=== PATIENT | female | born 1965 | race Caucasian/White ===

== ENCOUNTER → 2016-07-23 | Outpatient (CLI) | payer BC ==
[~2016-07-23] MED LIST: ASPI81TA28 PO; BUTO10SO; CHOL100010 PO; ESTR1CRE PV; FLNIN NAE; IMT100 PO; LYSI500C2 PO; ONDA4TAB65 PO; PROM25TA16 PO; SENN-65 PO; TRAM-10 PO; VITACAP26 PO
[2016-07-23 19:01] LABS: HEMATOCRIT 40.5 % (37-47); MEAN CELL VOLUME 89.4 fL (80-100); MEAN CORPUSCULAR HGB CONC 33.6 g/dl (32-36); MEAN PLATELET VOLUME 10.3 fL (7.4-10.4); PLATELET COUNT 183 K/uL (130-400); RED BLOOD COUNT 4.53 M/uL (4.2-5.4); WHITE BLOOD COUNT 3.26 K/uL (4.8-10.8)
[2016-07-23 19:24] LABS: BLOOD UREA NITROGEN 13 mg/dl (7-18); BUN/CREATININE RATIO 13.5 (10-20); CALCIUM 9.2 mg/dl (8.5-10.1); CARBON DIOXIDE 30 mmol/L (21-32); CHLORIDE 105 mmol/L (98-107); CREATININE 0.97 mg/dl (0.60-1.20); GLUCOSE 117 mg/dl (70-99); POTASSIUM 3.7 mmol/L (3.5-5.1); SODIUM 140 mmol/L (136-145)
== END | disposition home or self-care (01) ==
LOC: C.LAB 17:53
PROVIDERS: ATTEND Nurse Practitioner
DX: R35.0 Frequency of micturition (principal); E03.4 Atrophy of thyroid (acquired); R41.3 Other amnesia

== ENCOUNTER → 2017-01-12 | Outpatient (CLI) | payer BC ==
[2017-01-12 16:32] LABS: HEMATOCRIT 40.3 % (37-47); MEAN CELL VOLUME 89.4 fL (80-100); MEAN CORPUSCULAR HEMOGLOBIN 30.4 pg (25-34); MEAN PLATELET VOLUME 9.6 fL (7.4-10.4); PLATELET COUNT 114 K/uL (130-400); RED BLOOD COUNT 4.51 M/uL (4.2-5.4); WHITE BLOOD COUNT 2.12 K/uL (4.8-10.8)
== END | disposition home or self-care (01) ==
LOC: C.LAB 15:56
PROVIDERS: ATTEND Internal Medicine
DX: D69.59 Other secondary thrombocytopenia (principal); M25.50 Pain in unspecified joint

== ENCOUNTER → 2017-01-27 | Outpatient (CLI) | payer BC ==
[2017-01-27 17:25] LABS: BASO % 1.3 %; BASO ABS # 0.05 K/uL (0-0.2); COMPLETE YES; EOS % 3.4 %; HEMATOCRIT 39.8 % (37-47); LYMPH % 28.1 %; LYMPH ABS # 1.08 K/uL (1.2-3.4); MEAN CELL VOLUME 90.2 fL (80-100); MEAN CORPUSCULAR HEMOGLOBIN 30.2 pg (25-34); MEAN CORPUSCULAR HGB CONC 33.4 g/dl (32-36); MEAN PLATELET VOLUME 9.6 fL (7.4-10.4); MONO % 12.5 %; NEUT % 54.7 %; PLATELET COUNT 184 K/uL (130-400); RED BLOOD COUNT 4.41 M/uL (4.2-5.4); WHITE BLOOD COUNT 3.85 K/uL (4.8-10.8)
== END | disposition home or self-care (01) ==
LOC: C.LAB 17:03
PROVIDERS: ATTEND Nurse Practitioner
DX: M25.50 Pain in unspecified joint (principal); D72.819 Decreased white blood cell count, unspecified

== ENCOUNTER → 2017-07-07 | Outpatient (CLI) | payer BC ==
--- NOTE | 2017-07-09 07:48 | MAMMOGRAPHY REPORT ---
BILATERAL DIGITAL SCREENING MAMMOGRAM TOMOSYNTHESIS WITH CAD: 07/07/2017 CLINICAL HISTORY: Routine screening. Patient has no complaints. TECHNIQUE: Breast tomosynthesis in addition to standard 2D mammography was performed. Current study was also evaluated with a Computer Aided Detection (CAD) system. COMPARISON: Comparison is made to exams dated: 07/01/2016 mammogram, 04/11/2013 mammogram, 08/18/2010 ul trasound, 08/18/2010 mammogram, 08/02/2009 mammogram, and 08/02/2009 ultrasound - [facility] nter. BREAST COMPOSITION: The tissue of both breasts is heterogeneously dense, which may obscure small mas ses. FINDINGS: The parenchymal pattern is unchanged. No developing mass, architectural distortion or clus ter of suspicious microcalcifications is seen in either breast. IMPRESSION: ACR BI-RADS CATEGORY 2: BENIGN There is no mammographic evidence of malignancy. A 1 year screening mammogram is recommended. The pa tient will receive written notification of the results. Approximately 10% of breast cancers are not detected with mammography. A negative mammographic report should not delay biopsy if a clinically suggestive mass is present. Lizeth Correa M.D. ay/:07/07/2017 16:40:26 Rehab Liaison: Yelena BUTLER(Shamar)(Mau), [facility] letter sent: Normal 1/2 BI-RADS Code: ACR BI-RADS Category 2: Benign
== END | disposition home or self-care (01) ==
LOC: C.MAMM 16:03
PROVIDERS: ATTEND Nurse Practitioner
DX: Z12.31 Encounter for screening mammogram for malignant neoplasm of breast (principal)

== ENCOUNTER 2020-09-26 11:33 | Inpatient (IN) ==
[2020-09-26] MEDS ORDERED: SODIUM CHLORIDE 0.9% 1000ML 1,000 ML IV STA (14:45)
[2020-09-26] MEDS ORDERED: ONDANSETRON INJ 2 MG/ML 2 ML VIAL IV STA (14:45)
--- NOTE | 2020-09-26 15:08 | Emergency Department Note ---
Impression & Plan Calculus of distal right ureter, Hydronephrosis ED Provider Note NAME: ERIKA LOPEZ AGE: 54 SEX: F : 1965 ARRIVES VIA: Walk-In INFORMANT: Patient, ED PROVIDER(S): Shaq Hernandez DO CHIEF COMPLAINT: Flank pain HPI: The patient is a 54-year-old female who presented to the emergency department for flank pain. The patient was diagnosed with a large distal ureteral calculus. The patient states that she has had ongoing symptoms. The patient has noticed nausea as well as low-grade fever. She is been trying to take her pain medication but has only had minimal relief. She did have follow- up imaging yesterday including an ultrasound which shows persistence of hydronephrosis as well as the distal right ureteral calculus. Because of ongoing worsening symptoms she called her urologist today and was referred to the emergency department for further evaluation. The patient denies having any rectal bleeding. She denies having any chest pain or difficulty breathing. She last ate this morning. She states pain is moderate to severe and worsens with movement. She also has significant right CVA pain. The patient has had kidney stones in the past. She is also required intervention to remove kidney stones in the past. ROS: See above HPI for pertinent positives & negatives. A total of 10 systems reviewed and were otherwise negative. PAST MEDICAL HISTORY: See Below PAST SURGICAL HISTORY: See Below FAMILY HISTORY: See Below SOCIAL HISTORY: See Below HOME MEDICATIONS: See Below ALLERGIES: See Below VITALS: See Below PHYSICAL EXAMINATION: The patient is awake and alert. The patient is very anxious appearing and appears to be uncomfortable. EYES: The conjunctivae are clear. The pupils are round and reactive. EARS, NOSE, MOUTH AND THROAT: The nose is without any evidence of any deformity. NECK: The neck is nontender and supple. RESPIRATORY: Normal respiratory effort is noted there is no evidence of wheezing rhonchi or rales CARDIOVASCULAR: Regular rate and rhythm noted there no murmurs rubs or gallops normal S1 normal S2. GASTROINTESTINAL: The abdomen is soft and nondistended. There is no tenderness guarding or rigidity. BACK: No midline tenderness was appreciated. There was significant right CVA tenderness to percussion. MUSCULOSKELETAL/EXTREMITIES: There is no evidence of gross deformity full range of motion is noted in the hips and shoulders. SKIN: There is no obvious evidence of any rash. There are no petechiae, pallor or cyanosis noted. NEUROLOGIC: Patient is awake alert and oriented x3. MEDICAL DECISION MAKING: The patient is a 54-year-old female who presented to the emergency department for an evaluation of right flank pain. The patient has a known right ureteral calculus. She called urology today and was referred to the emergency department for further evaluation. She did have radiographic studies done yesterday which showed hydronephrosis as well as a distal right ureteral calculus. She has been taking her outpatient medication without relief. The patient started noticing fever. She denies having any vomiting. She does have significant nausea as well as right-sided flank pain. I discussed the patient's laboratory and radiographic studies with her. I discussed her case with the on-call urology group covering for the patient's primary urologist as well [facility] They have agreed to evaluate the patient in the emergency department for further management and disposition. She was found to have signs of urinary tract infection on urinalysis. She was given IV fluids IV pain medication and IV antiemetics. She was also started on IV antibiotic. She was reevaluated multiple times. She was feeling much better on subsequent reevaluation. Triage Nursing notes reviewed. Prior medical records reviewed Vital Signs: reviewed and remarkable for no significant abnormalities Differential diagnosis: Renal colic, UTI, appendicitis, diverticulitis, mesenteric ischemia, aortic pathology, infections, inflammatory bowel disease, PUD, biliary pathology, as we ll as other pathologies. ER treatment provided: See below Diagnostics interpreted by me: ECG: none Cardiac Monitoring: An order was placed for continuous cardiac monitoring. The monitor shows a rate of 68 bpm with sinus rhythm. Laboratory studies: As stated above and show below. Imaging studies: See below Consultation(s): 1505: I discussed this case with Luli who was wafer fabrication technician for urology. 1530: I discussed this case with Luli Rodriguez who [facility] They will evaluate the patient in the emergency department. Past Med/Surg History Medical History History of kidney stones Lyme disease Migraine headache Osteoporosis Patent foramen ovale (07/27/12) Surgical History H/O bilateral oophorectomy History of hysterectomy Family History Mother Cervical cancer Social History Smoking Status: Never smoker Hx Alcohol Use: Yes Alcohol Intake Frequency: 2-4 x/Month Preferred Language: Korean Feels Safe at Home: Yes Allergies Allergies Allergy/AdvReac Type Severity Reaction Status Date / Time azithromycin [From Zithromax] Allergy Severe Hives Verified 09/26/20 15:49 dihydroergotamine Allergy Severe "THROAT Verified 09/26/20 15:49 SHUTS DOWN" ketorolac Allergy Intermediate HIVES Verified 09/26/20 15:49 Penicillins Allergy Intermediate Hives Verified 09/26/20 15:49 Home Meds Home Medications Medication Instructions Recorded Confirmed ascorbic acid (vitamin C) 500 mg 500 mg PO BID 11/11/17 09/26/20 tablet (Vitamin C) conjugated estrogens 0.625 mg/gram 1 applic VAGINAL 2XWK 11/11/17 09/26/20 vaginal cream (Premarin) fluticasone propionate 50 1 spray INTRANASAL DAILY PRN 11/11/17 09/26/20 mcg/actuation nasal spray,suspension (Flonase Allergy Relief) folic acid 400 mcg tablet 400 mcg PO QAM 11/11/17 09/26/20 lysine 500 mg tablet (L-Lysine) 500 mg PO DAILY PRN 11/11/17 09/26/20 selenium 200 mcg tablet (SelenoMax) 200 mcg PO QAM 11/11/17 09/26/20 sennosides 8.6 mg-docusate sodium 1 tab PO BID 11/11/17 09/26/20 50 mg tablet (Senna-S) sumatriptan succinate 100 mg 100 mg PO UD PRN 11/11/17 09/26/20 tablet (Imitrex) cholecalciferol (vitamin D3) 125 5,000 units PO QAM 07/03/18 09/26/20 mcg (5,000 unit) tablet (Vitamin D3) meperidine (PF) 100 mg/mL 1 ml IM DIRECTED PRN 07/03/18 09/26/20 injection solution multivitamin (Multiple Vitamins) 1 tab PO QAM 07/03/18 09/26/20 vitamin B complex (Vitamins B 1 tab PO QAM 09/07/20 09/26/20 Complex) ibuprofen 800 mg tablet 800 mg PO DIRECTED PRN 09/26/20 09/26/20 Previous Rx's Medication Instructions Recorded hydrocodone 5 mg-acetaminophen 325 1 - 2 tab PO Q6H PRN #20 tab 09/07/20 mg tablet ondansetron 4 mg disintegrating 4 mg PO Q6H PRN #20 tab 09/07/20 tablet tamsulosin 0.4 mg capsule (Flomax) 0.4 mg PO DAILY #14 cap 09/07/20 Results & Data (ED) Vital Signs Vital Signs - 24 hr 09/26/20 11:43 09/26/20 15:47 09/26/20 17:03 Temperature 36.4 C L Temperature Source Temporal Artery Scan Pulse Rate 90 Pulse Rate [Finger] 68 Pulse Rhythm [Finger] Regular Respiratory Rate 18 18 Respiratory Effort / Characteristics Non-Labored Spontaneous Non-Labored Respiratory Depth Normal Normal Respiratory Pattern Regular Blood Pressure 126/80 Blood Pressure [Right Arm] 119/81 Blood Pressure Mean 95 Blood Pressure Mean [Right Arm] 93 Blood Pressure Position Sitting Blood Pressure Position [Right Arm] Sitting Pulse Oximetry 96 99 Oxygen Delivery Method Room Air Room Air Room Air Sepsis Recent Fever Within 48 Hours No Sepsis New/Unexplained Change in Mental Status N/A Sepsis Action Taken by Nursing No Action Required Home Medications Current Medication List: was personally reviewed by me Laboratory Data Attestation: I reviewed the patient's lab results. Result diagrams: 09/26/20 15:00 09/26/20 15:00 Lab Results 09/26/20 09/26/20 09/26/20 Range/Units 15:00 15:00 15:20 WBC 3.45 L (4.8-10.8) K/uL RBC 4.56 (4.2-5.4) M/uL Hgb 13.9 (12.0-16.0) g/dL Hct 40.9 (37-47) % MCV 89.7 (80-100) fL MCH 30.5 (25-34) pg MCHC 34.0 (32-36) g/dL RDW Std Deviation 42.9 (36.4-46.3) fL RDW Coeff of Uma 13.1 (11.5-14.5) % Plt Count 175 (130-400) K/uL MPV 9.6 (7.4-10.4) fL Immature Gran % (Auto) 0.0 % Neut % (Auto) 52.8 % Lymph % (Auto) 31.6 % [place] % (Auto) 10.4 % Eos % (Auto) 4.6 % Baso % (Auto) 0.6 % Neut # (Auto) 1.82 (1.4-6.5) K/uL Lymph # (Auto) 1.09 L (1.2-3.4) K/uL [place] # (Auto) 0.36 (0.11-0.59) K/uL Eos # (Auto) 0.16 (0-0.5) K/uL Baso # (Auto) 0.02 (0-0.2) K/uL Immature Gran # (Auto) 0.00 (0.00-0.02) K/uL Sodium 138 (136-145) mmol/L Potassium 4.1 (3.5-5.1) mmol/L Chloride 108 H (98-107) mmol/L Carbon Dioxide 29 (21-32) mmol/L Anion Gap 1.0 L (3-11) BUN 17 (7-18) mg/dl Creatinine 0.81 (0.6-1.2) mg/dl Est Cr Clr Drug Dosing 67.8 ml/min Est GFR ( Amer) 94.8 ml/min Est GFR (Non-Af Amer) 81.8 ml/min BUN/Creatinine Ratio 21.4 H (10-20) Glucose 84 (70-99) mg/dl Calcium 9.0 (8.5-10.1) mg/dl Total Bilirubin 0.3 (0.2-1) mg/dl AST 20 (15-37) U/L ALT 26 (12-78) U/L Alkaline Phosphatase 62 (45-117) U/L Total Protein 7.9 (6.4-8.2) gm/dl Albumin 4.4 (3.4-5.0) gm/dl Globulin 3.5 (2.5-4.0) gm/dl Albumin/Globulin Ratio 1.3 (0.9-2) Lipase 148 (73-393) U/L Urine Color Yellow Urine Appearance Clear (Clear) Urine pH 6.5 (4.5-7.5) Ur Specific [place] 1.014 (1.000-1.030) Urine Protein 1+ H (Negative) Urine Glucose (UA) Negative (Negative) Urine Ketones Trace H (Negative) Urine Blood Negative (Negative) Urine Nitrite Negative (Negative) Urine Bilirubin Negative (Negative) Urine Urobilinogen Negative (Negative) Ur Leukocyte Esterase 2+ H (Negative) Urine WBC (Auto) >30 H (0-5) /hpf Urine RBC (Auto) 5-10 H (0-4) /hpf U Hyaline Cast (Auto) 1-5 (0-5) /lpf U Epithel Cells (Auto) 20-30 H (0-5) /lpf Urine Bacteria (Auto) Negative (Negative) COVID-19 Eval Order SARS-CoV-2 (PCR) (Negative) 09/26/20 09/26/20 Range/Units 15:20 15:20 WBC (4.8-10.8) K/uL RBC (4.2-5.4) M/uL Hgb (12.0-16.0) g/dL Hct (37-47) % MCV (80-100) fL MCH (25-34) pg MCHC (32-36) g/dL RDW Std Deviation (36.4-46.3) fL RDW Coeff of Uma (11.5-14.5) % Plt Count (130-400) K/uL MPV (7.4-10.4) fL Immature Gran % (Auto) % Neut % (Auto) % Lymph % (Auto) % [place] % (Auto) % Eos % (Auto) % Baso % (Auto) % Neut # (Auto) (1.4-6.5) K/uL Lymph # (Auto) (1.2-3.4) K/uL [place] # (Auto) (0.11-0.59) K/uL Eos # (Auto) (0-0.5) K/uL Baso # (Auto) (0-0.2) K/uL Immature Gran # (Auto) (0.00-0.02) K/uL Sodium (136-145) mmol/L Potassium (3.5-5.1) mmol/L Chloride (98-107) mmol/L Carbon Dioxide (21-32) mmol/L Anion Gap (3-11) BUN (7-18) mg/dl Creatinine (0.6-1.2) mg/dl Est Cr Clr Drug Dosing ml/min Est GFR ( Amer) ml/min Est GFR (Non-Af Amer) ml/min BUN/Creatinine Ratio (10-20) Glucose (70-99) mg/dl Calcium (8.5-10.1) mg/dl Total Bilirubin (0.2-1) mg/dl AST (15-37) U/L ALT (12-78) U/L Alkaline Phosphatase (45-117) U/L Total Protein (6.4-8.2) gm/dl Albumin (3.4-5.0) gm/dl Globulin (2.5-4.0) gm/dl Albumin/Globulin Ratio (0.9-2) Lipase (73-393) U/L Urine Color Urine Appearance (Clear) Urine pH (4.5-7.5) Ur Specific [place] (1.000-1.030) Urine Protein (Negative) Urine Glucose (UA) (Negative) Urine Ketones (Negative) Urine Blood (Negative) Urine Nitrite (Negative) Urine Bilirubin (Negative) Urine Urobilinogen (Negative) Ur Leukocyte Esterase (Negative) Urine WBC (Auto) (0-5) /hpf Urine RBC (Auto) (0-4) /hpf U Hyaline Cast (Auto) (0-5) /lpf U Epithel Cells (Auto) (0-5) /lpf Urine Bacteria (Auto) (Negative) COVID-19 Eval Order Covid19 at [facility] SARS-CoV-2 (PCR) NEGATIVE (Negative) Administered Medications Morphine Sulfate (Morphine Sulfate 4 Mg/Ml 1 Ml Carp\\Vial) 4 mg IV Q15M PRN PRN Reason: Pain Stop: 10/10/20 14:44 Last Admin: 09/26/20 15:58 Dose: 4 mg Documented by: [id number] Admin: 09/26/20 15:19 Dose: 4 mg Documented by: [id number] Discontinued Medications Sodium Chloride (Nss 1000ml) 1,000 mls @ 999 mls/hr IV .Q1H1M STA Stop: 09/26/20 15:45 Last Admin: 09/26/20 15:19 Dose: 999 mls/hr Documented by: [id number] Ceftriaxone Sodium (Rocephin) 1,000 mg in 50 mls @ 100 mls/hr IV NOW STA Stop: 09/26/20 16:43 Last Admin: 09/26/20 17:02 Dose: 100 mls/hr Documented by: [id number] Ondansetron HCl (Ondansetron Inj 2 Mg/Ml 2 Ml Vial) 4 mg IV NOW STA Stop: 09/26/20 14:46 Last Admin: 09/26/20 15:19 Dose: 4 mg Documented by: [id number] Imaging Data Radiologist's Impression: KUB X-Ray 09/26/20 14:45 KUB CLINICAL HISTORY: right sided pain COMPARISON STUDY: CT of the abdomen and pelvis September 07, 2020. KUB September 25, 2020. FINDINGS: Several small left renal calculi are noted. Note is made of multiple calcifications within the right inferior pelvis which measure up to 5 mm. These suggest distal right ureteral calculi. Several small left renal calculi are present. Additional pelvic calcifications reflect phleboliths. IMPRESSION: Multiple suspected distal right ureteral calculi that measure up to approximately 5 mm. ACT 112: Negative or not required by law. Electronically signed by: Hoang Betancourt M.D. 09/26/2020 3:54 PM Renal Ultrasound 09/26/20 15:22 RENAL ULTRASOUND CLINICAL HISTORY: Right flank pain. COMPARISON STUDY: CT of the abdomen and pelvis September 07, 2020. Renal ultrasound September 25, 2020. KUB performed earlier today. TECHNIQUE: Sonography of the kidneys and the urinary bladder was performed. FINDINGS: Right kidney measures 10.4 cm in maximal dimension and the left measures 9.4 cm. Moderate right hydroureteronephrosis is similar to ultrasound of September 25, 2020. There are multiple left renal calculi. There are multiple calculi within the distal right ureter that measure up to approximately 6 mm. There is no left hydronephrosis. Left ureteral jet was visualized. The right ureteral jet was not visualized. IMPRESSION: 1. No significant change in moderate right hydroureteronephrosis with multiple calculi within the distal right ureter/ureterovesical junction. 2. Left-sided nephrolithiasis. ACT 112: Negative or not required by law. Electronically signed by: Hoang Betancourt M.D. 09/26/2020 4:56 PM Discharge Plan Visit Data Chief Complaint: Kidney Stone Stated Complaint: kidney stone ED Provider: Shaq Hernandez Discharge Problem: Calculus of distal right ureter, Hydronephrosis Patient Disposition: Being Evaluated by Hospitalist Condition: Good Discharge Instructions Interventions: ED Discharge Assessment Last Done: 09/26/20 17:25
[2020-09-26 15:09] LABS: Basophils # (auto) 0.02 K/uL (0-0.2); Basophils % (auto) 0.6 %; Eosinophils # (auto) 0.16 K/uL (0-0.5); Eosinophils % (auto) 4.6 %; Hematocrit (blood only) 40.9 % (37-47); Hemoglobin 13.9 g/dL (12.0-16.0); Lymphocytes # (auto) 1.09 K/uL (1.2-3.4); Lymphocytes % (auto) 31.6 %; Mean Corpuscular Hemoglobin 30.5 pg (25-34); Mean Corpuscular Volume 89.7 fL (80-100); Mean Platelet Volume 9.6 fL (7.4-10.4); Monocytes # (auto) 0.36 K/uL (0.11-0.59); Monocytes % (auto) 10.4 %; Neutrophils # (auto) 1.82 K/uL (1.4-6.5); Neutrophils % (auto) 52.8 %; Platelet Count 175 K/uL (130-400); RDW Coefficient of Variation 13.1 % (11.5-14.5); RDW Standard Deviation 42.9 fL (36.4-46.3); Red Blood Count 4.56 M/uL (4.2-5.4); White Blood Count 3.45 K/uL (4.8-10.8)
[2020-09-26] MEDS: MoRPHine SULFATE 4 MG/ML 1 ML CARP\\VIAL IV PRN ×2 (15:19→15:58)
[2020-09-26 15:31] LABS: Albumin Level 4.4 gm/dl (3.4-5.0); BUN Creatinine Ratio 21.4 (10-20); Creatinine Clr Calc Pharmacy 67.8 ml/min; Est GFR (African American) 94.8 ml/min; Est GFR (Non-African American) 81.8 ml/min; Potassium 4.1 mmol/L (3.5-5.1)
[2020-09-26 15:34] LABS: Albumin Globulin Ratio 1.3 (0.9-2); Bilirubin,Total 0.3 mg/dl (0.2-1); Globulin 3.5 gm/dl (2.5-4.0); Total Protein 7.9 gm/dl (6.4-8.2)
[2020-09-26 15:36] LABS: Appearance Urine Clear (Clear); Bacteria Urine Automated Negative (Negative); Bilirubin Urine Negative (Negative); Blood Urine Negative (Negative); Color Urine Yellow; Epithelial Cell Urine Auto 20-30 /lpf (0-5); Glucose Urine UA Negative (Negative); Ketones Urine Trace (Negative); Leukocyte Esterase Urine 2+ (Negative); Nitrite Urine Negative (Negative); Protein Urine 1+ (Negative); Specific Gravity Urine 1.014 (1.000-1.030); Urobilinogen Urine Negative (Negative); WBC Urine Automated >30 /hpf (0-5); pH Urine 6.5 (4.5-7.5)
--- NOTE | 2020-09-26 15:43 | Urology Consultation ---
Date of Consultation September 26, 2020 Assessment & Plan (1) Right ureteral stone: (2) Hydronephrosis, right: 54yo F admitted with intractable right flank pain secondary to a few 7 mm obstructive distal ureteral stones with associated hydronephrosis. - Plan of care reviewed with Dr. Barrientos, on-call urologist. - She is afebrile, VSS, non-toxic appearing. - Labs reviewed, Wbc 3.45 and Cr 0.81. - UC&S pending. - Keep NPO. - Strain all urine. - Continue supportive care and pain management. - Given her intractable right flank pain in the setting of a few 7mm obstructing distal right ureteral calculi, will proceed to OR for cystoscopy, right retrograde pyelogram and right stent placement, possible ureteroscopy, laser litho, stone basketing, possible ureteral dilation depending on findings. - Risks and benefits to be discussed with patient by Dr. Barrientos. OR notified. Covid test negative. IV Ceftriaxone given in ED. - Expected clinical course reviewed with patient, she is agreeable to plan, all questions were answered. - Will continue to follow History of Present Illness Reason for Consultation: Ureteral stone, [place] History of Present Illness 54 year-old female patient, with past medical history significant for osteoporosis, known kidney stones, and migraines, who presented to the emergency department for right flank pain. The patient was sent to the ER after phone visit with urology service for subjective fevers with known distal ureteral calculus. She was admitted to hospital for further evaluation and treatment. Urology consulted for renal colic and hydronephrosis. Patient known to [facility] urology service, patient of Dr. Batista. Was also in the ER earlier this month for right abdominal pain. Diagnosed with few 7 mm obstructive calculi within distal aspect of the right ureter. Chart review: Afebrile Wbc 3.45 Hgb 13.9 Creatinine 0.78 Urinalysis with +2 leukocytes, >30 wbc, 5-10 rbc, negative bacteria, negative nitrates. Urine culture pending Urine culture 09/07 more than three types organisms, all high counts probable mixed skin heath. Imaging: CT abd/pelvis 09/07/20 - IMPRESSION: 1. Mild right hydronephrosis and hydroureter with surrounding inflammatory changes and few 7 mm obstructive calculi within distal aspect of the right ureter. 2. Small calculi are seen within bilateral renal pelvises, nonobstructive on the left. 3. Nondilated loops of bowel. Mild inflammatory changes are seen surrounding the ascending colon which might represent developing colitis versus normal variant. 4. Normal appendix. 5. Multiple small hypoattenuating lesions within liver, too small to characterize and statistically most likely represent cysts or hemangiomas. These lesions were not seen on prior study likely because it was performed without IV contrast. KUB 09/25/20 - IMPRESSION: 1. Constipation pattern. 2. No definite calcifications within the abdomen to suggest nephrolithiasis is seen as detailed above. Pt examined at bedside in the ER. Awake, resting in bed on arrival. She reports continued flank pain and subjective fevers at home. Denies issues with urination. Denies hematuria and dysuria. No nausea or vomiting. Pt reports she last had coffee around 10am. Allergies Allergy/AdvReac Type Severity Reaction Status Date / Time azithromycin [From Zithromax] Allergy Severe Hives Verified 09/26/20 15:49 dihydroergotamine Allergy Severe "THROAT Verified 09/26/20 15:49 SHUTS DOWN" ketorolac Allergy Intermediate HIVES Verified 09/26/20 15:49 Penicillins Allergy Intermediate Hives Verified 09/26/20 15:49 Home Medications Medication Instructions Recorded Confirmed Type ascorbic acid (vitamin C) 500 mg 500 mg PO BID 11/11/17 09/26/20 History tablet (Vitamin C) conjugated estrogens 0.625 mg/gram 1 applic VAGINAL 2XWK 11/11/17 09/26/20 History vaginal cream (Premarin) fluticasone propionate 50 1 spray INTRANASAL DAILY PRN 11/11/17 09/26/20 History mcg/actuation nasal spray,suspension (Flonase Allergy Relief) folic acid 400 mcg tablet 400 mcg PO QAM 11/11/17 09/26/20 History lysine 500 mg tablet (L-Lysine) 500 mg PO DAILY PRN 11/11/17 09/26/20 History selenium 200 mcg tablet (SelenoMax) 200 mcg PO QAM 11/11/17 09/26/20 History sennosides 8.6 mg-docusate sodium 1 tab PO BID 11/11/17 09/26/20 History 50 mg tablet (Senna-S) sumatriptan succinate 100 mg 100 mg PO UD PRN 11/11/17 09/26/20 History tablet (Imitrex) cholecalciferol (vitamin D3) 125 5,000 units PO QAM 07/03/18 09/26/20 History mcg (5,000 unit) tablet (Vitamin D3) meperidine (PF) 100 mg/mL 1 ml IM DIRECTED PRN 07/03/18 09/26/20 History injection solution multivitamin (Multiple Vitamins) 1 tab PO QAM 07/03/18 09/26/20 History hydrocodone 5 mg-acetaminophen 325 1 - 2 tab PO Q6H PRN #20 tab 09/07/20 09/26/20 Rx mg tablet ondansetron 4 mg disintegrating 4 mg PO Q6H PRN #20 tab 09/07/20 09/26/20 Rx tablet tamsulosin 0.4 mg capsule (Flomax) 0.4 mg PO DAILY #14 cap 09/07/20 09/26/20 Rx vitamin B complex (Vitamins B 1 tab PO QAM 09/07/20 09/26/20 History Complex) ibuprofen 800 mg tablet 800 mg PO DIRECTED PRN 09/26/20 09/26/20 History Patient History Medical History History of kidney stones Lyme disease Migraine headache Osteoporosis Patent foramen ovale (07/27/12) Surgical History H/O bilateral oophorectomy History of hysterectomy Family History Mother Cervical cancer Social History Smoking Status: Never smoker Hx Alcohol Use: Yes Alcohol Intake Frequency: 2-4 x/Month Preferred Language: Tajik Beliefs That Will Affect Care: None Current Living Situation: Spouse and Family Feels Safe at Home: Yes Review of Systems Review of Systems: All systems reviewed & are unremarkable except as noted in HPI & below Physical Exam Constitutional: well developed and well nourished; no acute distress Neck: normal visual inspection Respiratory: normal respiratory effort; no labored breathing and no audible wheezes Gastrointestinal (Abdomen): Inspection/Auscultation: abdomen normal to inspection; abdomen not distended Musculoskeletal: Head/Neck/Chest: normocephalic Skin: Warm and dry Neurologic: awake Psychiatric: Orientation: alert, oriented x 3 and cooperative Results & Data ([facility]) Vital Signs (Past 12 Hours) Vital Signs Temp Pulse Resp BP Pulse Ox 09/26/20 11:43 36.4 C L 90 18 126/80 96 PG Care Time/CCT Total # of Minutes Spent Total Time Spent with Patient: Total time spent is greater than 50% in coordination of care (as documented) at patient's floor/unit and/or counseling patient: Coding Level of Care Code 31004 Inpt Consult Level 4 Diagnoses Right ureteral stone N20.1 Hydronephrosis, right N13.30
--- NOTE | 2020-09-26 15:55 | XRay Report ---
KUB CLINICAL HISTORY: right sided pain COMPARISON STUDY: CT of the abdomen and pelvis September 07, 2020. KUB September 25, 2020. FINDINGS: Several small left renal calculi are noted. Note is made of multiple calcifications within the right inferior pelvis which measure up to 5 mm. These suggest distal right ureteral calculi. Sapna ral small left renal calculi are present. Additional pelvic calcifications reflect phleboliths. IMPRESSION: Multiple suspected distal right ureteral calculi that measure up to approximately 5 mm. ACT 112: Negative or not required by law. Electronically signed by: Hoang Betancourt M.D. 09/26/2020 3:54 PM
[2020-09-26] MEDS ORDERED: cefTRIAXone SODIUM 1,000 MG/50 ML BAG IV STA (16:14)
--- NOTE | 2020-09-26 16:57 | Ultrasound Report ---
RENAL ULTRASOUND CLINICAL HISTORY: Right flank pain. COMPARISON STUDY: CT of the abdomen and pelvis September 07, 2020. Renal ultrasound September 25, 2020. KUB pe rformed earlier today. TECHNIQUE: Sonography of the kidneys and the urinary bladder was performed. FINDINGS: Right kidney measures 10.4 cm in maximal dimension and the left measures 9.4 cm. Moderate r ight hydroureteronephrosis is similar to ultrasound of September 25, 2020. There are multiple left renal c alculi. There are multiple calculi within the distal right ureter that measure up to approximately 6 mm. There is no left hydronephrosis. Left ureteral jet was visualized. The right ureteral jet was not visualized. IMPRESSION: 1. No significant change in moderate right hydroureteronephrosis with multiple calculi within the dis meg right ureter/ureterovesical junction. 2. Left-sided nephrolithiasis. ACT 112: Negative or not required by law. Electronically signed by: Hoang Betancourt M.D. 09/26/2020 4:56 PM
--- NOTE | 2020-09-26 17:39 | History & Physical Report ---
Date of Service September 26, 2020 Assessment & Plan (1) Right ureteral stone: (2) Hydronephrosis, right: Plan: -Admit to [facility] -Patient presenting from home with reports of right flank pain and low-grade fever -Diagnosed with a few 7 mm right ureteral calculi on 09/07 in ED -discharged on Allamuchy, Flomax, cefdinir with improvement in symptoms -In the ED, hemodynamically stable, no signs of sepsis -Renal functions WNL -UA does not strongly suggest UTI however given reports of low-grade fever, will start empiric IV ceftriaxone -Urology to evaluate the patient this evening -IVF, pain and nausea control, Flomax (3) DVT prophylaxis: Plan: -SCDs History of Present Illness Chief Complaint: Right flank pain Primary Care Provider: Urbano Cast DO 54-year-old female with PMH history of kidney stones, PFO, history of migraines, osteoporosis, other problems listed below who presents the ED for evaluation of right flank pain. Patient seen in the ED on 09/07 and diagnosed with right ureteral 7 mm stones. She was discharged home with Allamuchy, Flomax, Zofran, cefdinir and instructions to follow-up with urology. Patient reports she initially had some improvement in her pain however right flank pain returned. Patient reports pain is radiating around into her abdomen and into the right groin. She reports running low-grade fevers. Denies dysuria and hematuria. No chest pain or shortness of breath. Denies abdominal pain, nausea, vomiting, diarrhea. In the ED, patient is afebrile, hemodynamically stable. Renal functions WNL. Renal ultrasound shows moderate right hydroureteronephrosis with multiple calculi within the distal right urete r/ureterovesical junction. Patient was given IV ceftriaxone, IV morphine, IV Zofran, IVF. She will be evaluated by urology. Allergies Allergy/AdvReac Type Severity Reaction Status Date / Time azithromycin [From Zithromax] Allergy Severe Hives Verified 09/26/20 15:49 dihydroergotamine Allergy Severe "THROAT Verified 09/26/20 15:49 SHUTS DOWN" ketorolac Allergy Intermediate HIVES Verified 09/26/20 15:49 Penicillins Allergy Intermediate Hives Verified 09/26/20 15:49 Home Medications Medication Instructions Recorded Confirmed Type ascorbic acid (vitamin C) 500 mg 500 mg PO BID 11/11/17 09/26/20 History tablet (Vitamin C) conjugated estrogens 0.625 mg/gram 1 applic VAGINAL 2XWK 11/11/17 09/26/20 History vaginal cream (Premarin) fluticasone propionate 50 1 spray INTRANASAL DAILY PRN 11/11/17 09/26/20 History mcg/actuation nasal spray,suspension (Flonase Allergy Relief) folic acid 400 mcg tablet 400 mcg PO QAM 11/11/17 09/26/20 History lysine 500 mg tablet (L-Lysine) 500 mg PO DAILY PRN 11/11/17 09/26/20 History selenium 200 mcg tablet (SelenoMax) 200 mcg PO QAM 11/11/17 09/26/20 History sennosides 8.6 mg-docusate sodium 1 tab PO BID 11/11/17 09/26/20 History 50 mg tablet (Senna-S) sumatriptan succinate 100 mg 100 mg PO UD PRN 11/11/17 09/26/20 History tablet (Imitrex) cholecalciferol (vitamin D3) 125 5,000 units PO QAM 07/03/18 09/26/20 History mcg (5,000 unit) tablet (Vitamin D3) meperidine (PF) 100 mg/mL 1 ml IM DIRECTED PRN 07/03/18 09/26/20 History injection solution multivitamin (Multiple Vitamins) 1 tab PO QAM 07/03/18 09/26/20 History hydrocodone 5 mg-acetaminophen 325 1 - 2 tab PO Q6H PRN #20 tab 09/07/20 09/26/20 Rx mg tablet ondansetron 4 mg disintegrating 4 mg PO Q6H PRN #20 tab 09/07/20 09/26/20 Rx tablet tamsulosin 0.4 mg capsule (Flomax) 0.4 mg PO DAILY #14 cap 09/07/20 09/26/20 Rx vitamin B complex (Vitamins B 1 tab PO QAM 09/07/20 09/26/20 History Complex) ibuprofen 800 mg tablet 800 mg PO DIRECTED PRN 09/26/20 09/26/20 History Past Med/Surg History Medical History History of kidney stones Lyme disease Migraine headache Osteoporosis Patent foramen ovale (07/27/12) Surgical History H/O bilateral oophorectomy History of hysterectomy Family History Mother Cervical cancer Social History Smoking Status: Never smoker Hx Alcohol Use: Yes Alcohol Intake Frequency: 2-4 x/Month Preferred Language: Greenlandic Feels Safe at Home: Yes Review of Systems Review of Systems: ROS per HPI, all other systems reviewed and negative Physical Exam Constitutional: WD/WN, vitals as above Eyes: PERRL, conjunctivae normal, anicteric sclerae ENMT: external ear and nose normal, oropharynx normal Respiratory: normal respiratory effort, lungs clear to auscultation Cardiovascular: Rate/Rhythm: regular rate and regular rhythm Vessels: normal peripheral pulses Extremities: no edema Gastrointestinal (Abdomen): normal bowel sounds, soft, nontender, no hepatosplenomegaly Musculoskeletal: no cyanosis or clubbing, extremities motor strength 5/5 Skin: no rashes, warm and dry Neurologic: PERRL, EOMI, accommodation nl, no face palsy, no dysarthria Psychiatric: A+Ox3, euthymic affect Genitourinary: + CVA tenderness (right) Results & Data Results & Data ([facility]) Vital Signs (Past 12 Hours) Vital Signs Temp Pulse Pulse Resp BP BP Pulse Ox 09/26/20 17:03 68 18 119/81 99 09/26/20 11:43 36.4 C L 90 18 126/80 96 Laboratory Results Short CBC 09/26/20 Range/Units 15:00 WBC 3.45 L (4.8-10.8) K/uL Hgb 13.9 (12.0-16.0) g/dL Hct 40.9 (37-47) % Plt Count 175 (130-400) K/uL BMP 09/26/20 15:00 Sodium 138 Potassium 4.1 Chloride 108 H Carbon Dioxide 29 BUN 17 Creatinine 0.81 Glucose 84 Calcium 9.0 Liver Function 09/26/20 Range/Units 15:00 Total Bilirubin 0.3 (0.2-1) mg/dl AST 20 (15-37) U/L ALT 26 (12-78) U/L Alkaline Phosphatase 62 (45-117) U/L Albumin 4.4 (3.4-5.0) gm/dl Urine 09/26/20 Range/Units 15:20 Urine Color Yellow Urine Appearance Clear (Clear) Urine pH 6.5 (4.5-7.5) Ur Specific [place] 1.014 (1.000-1.030) Urine Protein 1+ H (Negative) Urine Glucose (UA) Negative (Negative) Diagnostic Findings KUB X-Ray 09/26/20 14:45 KUB CLINICAL HISTORY: right sided pain COMPARISON STUDY: CT of the abdomen and pelvis September 07, 2020. KUB September 25, 2020. FINDINGS: Several small left renal calculi are noted. Note is made of multiple calcifications within the right inferior pelvis which measure up to 5 mm. These suggest distal right ureteral calculi. Several small left renal calculi are present. Additional pelvic calcifications reflect phleboliths. IMPRESSION: Multiple suspected distal right ureteral calculi that measure up to approximately 5 mm. ACT 112: Negative or not required by law. Electronically signed by: Hoang Betancourt M.D. 09/26/2020 3:54 PM Renal Ultrasound 09/26/20 15:22 RENAL ULTRASOUND CLINICAL HISTORY: Right flank pain. COMPARISON STUDY: CT of the abdomen and pelvis September 07, 2020. Renal ultrasound September 25, 2020. KUB performed earlier today. TECHNIQUE: Sonography of the kidneys and the urinary bladder was performed. FINDINGS: Right kidney measures 10.4 cm in maximal dimension and the left measures 9.4 cm. Moderate right hydroureteronephrosis is similar to ultrasound of September 25, 2020. There are multiple left renal calculi. There are multiple calculi within the distal right ureter that measure up to approximately 6 mm. There is no left hydronephrosis. Left ureteral jet was visualized. The right ureteral jet was not visualized. IMPRESSION: 1. No significant change in moderate right hydroureteronephrosis with multiple calculi within the distal right ureter/ureterovesical junction. 2. Left-sided nephrolithiasis. ACT 112: Negative or not required by law. Electronically signed by: Hoang Betancourt M.D. 09/26/2020 4:56 PM Code Status & VTE Plan VTE Prophylaxis Plan VTE Prophylaxis will be ordered: Yes Supervising Physician Co-Signing Physician Notes I saw this patient with the Nurse Practitioner, I participated in the history, physical, review of systems, and physical exam. I reviewed the medications with the patient and the Nurse Practitioner and helped reconcile the medications. I helped take a detailed family and social history as well. I formulated the assessment and plan personally with the Nurse Practitioner went over it with the patient. ROS-No Headache, No Visual Changes, No Nausea, No Vomiting, No Fever, No Chills, No Neck Pain or Stiffness, No Chest Pain, No Palpitations, No SOB, No CLEANING, No Cough, No Sputum, No Wheezing, No Abdominal Pain, No Diarrhea, No Hematemesis, No Hemoptysis, No Unexpected Weight Loss, + Flank pain, No Melena, No Hematochezia, No Frequency, No Urgency, No Burning, No Hematuria, No Rashes, No Diaphoresis. Appetite is Low, +Dysuria Physical Exam Gen-AAO x 3, NAD, Afebrile Head-NCAT, EOMI, PERRLA, Anicteric Sclera, No Posterior Pharyngeal Erythema Neck-Supple, No JVD, No Thyromegaly, No Masses, No LAD, No Bruits Lungs-Clear to Auscultation Bilaterally, No Rales, No Rhonchi, No Wheezing, No Crepitus Chest-No S4, +S1, +S2, No S3, No Murmurs, No Rubs, No Gallops, No Ectopy Abdomen-Soft, Bowel Sounds Present, Non Tender, Non Distended, No Hepatomegaly, No Splenomegaly, No Palpable Masses, No Rebound, No Rigidity, No Guarding Musculoskeletal-Full Range of Motion Bilaterally, +CVAT Extremities-No Cyanosis, No Clubbing, No Edema Nuero-Cranial Nerves II-XII grossly intact, Motor WNL, DTRs WNL, Strength WNL, Non Focal Psych-Normal Mood
[2020-09-26] MEDS ORDERED: ePHEDrine sulfate 50 MG/ML AMP IV PRN (17:44)
[2020-09-26] MEDS ORDERED: ONDANSETRON INJ 2 MG/ML 2 ML VIAL IV PRN (17:44)
[2020-09-26] MEDS ORDERED: PROMETHAZINE HCL 6.25 MG in SODIUM CHLORIDE 0.9% 50 ML IV PRN (17:44)
[2020-09-26] MEDS ORDERED: ATROPINE SULFATE 0.1 MG/ML 10ML SYR IV PRN (17:44)
[2020-09-26] MEDS ORDERED: fentaNYL citrate 100 MCG/2 ML VIAL IV PRN (17:44)
--- NOTE | 2020-09-26 17:44 | Anesthesiology Consultation ---
Date of Service September 26, 2020 Assessment & Plan (1) Encounter for pre-operative examination: Chart Review Chart Review: Acceptable Risk for Surgery and Patient NOT seen in Pre Admission Testing Consults Requested none ASA ASA2 Proposed Anesthesia Anesthesia Type: General Risk / Benefits Reviewed With: PT / POA / Parent / Guardian, Accepts Plan and In formed Consent Obtained History Surgery Operation Date: 09/26/20 11:20 Proposed Procedures p Cystoscopy, Retrograde Pyelogram, Right Stent Placement, Posible Ureteroscopy, Laser Lithotripsy/Stone Treatment - Alphonso Barrientos MD Height/Weight Height: 5 ft 4 in Weight: 61.9 kg Allergies Allergy/AdvReac Type Severity Reaction Status Date / Time azithromycin [From Zithromax] Allergy Severe Hives Verified 09/26/20 15:49 dihydroergotamine Allergy Severe "THROAT Verified 09/26/20 15:49 SHUTS DOWN" ketorolac Allergy Intermediate HIVES Verified 09/26/20 15:49 Penicillins Allergy Intermediate Hives Verified 09/26/20 15:49 Medications Home Medications Medication Instructions Recorded Confirmed Last Taken ascorbic acid (vitamin C) 500 mg 500 mg PO BID 11/11/17 09/26/20 09/25/20 tablet (Vitamin C) conjugated estrogens 0.625 mg/gram 1 applic VAGINAL 2XWK 11/11/17 09/26/20 09/24/20 vaginal cream (Premarin) fluticasone propionate 50 1 spray INTRANASAL DAILY PRN 11/11/17 09/26/20 09/02/20 mcg/actuation nasal spray,suspension (Flonase Allergy Relief) folic acid 400 mcg tablet 400 mcg PO QAM 11/11/17 09/26/20 09/25/20 lysine 500 mg tablet (L-Lysine) 500 mg PO DAILY PRN 11/11/17 09/26/20 Unknown selenium 200 mcg tablet (SelenoMax) 200 mcg PO QAM 11/11/17 09/26/20 09/26/20 sennosides 8.6 mg-docusate sodium 1 tab PO BID 11/11/17 09/26/20 09/26/20 08:00 50 mg tablet (Senna-S) sumatriptan succinate 100 mg 100 mg PO UD PRN 11/11/17 09/26/20 Unknown tablet (Imitrex) cholecalciferol (vitamin D3) 125 5,000 units PO QAM 07/03/18 09/26/20 09/25/20 mcg (5,000 unit) tablet (Vitamin D3) meperidine (PF) 100 mg/mL 1 ml IM DIRECTED PRN 07/03/18 09/26/20 Unknown injection solution multivitamin (Multiple Vitamins) 1 tab PO QAM 07/03/18 09/26/20 09/25/20 hydrocodone 5 mg-acetaminophen 325 1 - 2 tab PO Q6H PRN #20 tab 09/07/20 09/26/20 09/25/20 mg tablet ondansetron 4 mg disintegrating 4 mg PO Q6H PRN #20 tab 09/07/20 09/26/20 Unknown tablet tamsulosin 0.4 mg capsule (Flomax) 0.4 mg PO DAILY #14 cap 09/07/20 09/26/20 09/26/20 08:00 vitamin B complex (Vitamins B 1 tab PO QAM 09/07/20 09/26/20 09/26/20 Complex) ibuprofen 800 mg tablet 800 mg PO DIRECTED PRN 09/26/20 09/26/20 09/26/20 Active Medications Generic Name Dose Route Start Last Admin Trade Name Freq PRN Reason Stop Dose Admin Morphine Sulfate 4 mg 09/26/20 14:45 09/26/20 15:58 Morphine Sulfate 4 Mg/Ml 1 Ml Carp\\Vial IV 10/10/20 14:44 4 mg Q15M PRN Administration Pain Past Medical History Medical History History of kidney stones Lyme disease Migraine headache Osteoporosis Patent foramen ovale (07/27/12) Exercise / Class Metabolic Activity II 4-5 Yardwork/Stairs/Walk up hill Past Family History Family History Mother Cervical cancer Past Surgical History Surgical History H/O bilateral oophorectomy History of hysterectomy Past Anesthesia History No Hx of Anesthesia Complications and No Family Hx of Anesthesia Complications History of PONV No Hx of PONV and No Hx of Motion Sickness Social History Smoking Status: Never smoker Hx Alcohol Use: Yes Physical Exam Vital Signs Last Vital Signs Temp 36.4 C L 09/26/20 11:43 Pulse 68 09/26/20 17:03 Resp 18 09/26/20 17:03 BP 119/81 09/26/20 17:03 Pulse Ox 99 09/26/20 17:03 ENMT Mouth: no dentition abnormality Thyromental Distance: > or= 3.5 Finger Breadths Mallampati Class: II Neck normal visual inspection Respiratory normal respiratory effort Auscultation: lungs clear to auscultation bilaterally Cardiovascular Rate/Rhythm: regular rate and regular rhythm Psychiatric Orientation: alert Testing Laboratory Results 09/26/20 15:00 09/26/20 15:00 Urine Color Yellow 09/26/20 15:20 Urine Appearance Clear (Clear) 09/26/20 15:20 Urine pH 6.5 (4.5-7.5) 09/26/20 15:20 Ur Specific [place] 1.014 (1.000-1.030) 09/26/20 15:20 Urine Protein 1+ (Negative) H 09/26/20 15:20 Urine Glucose (UA) Negative (Negative) 09/26/20 15:20 Urine Ketones Trace (Negative) H 09/26/20 15:20 Urine Nitrite Negative (Negative) 09/26/20 15:20 Ur Leukocyte Esterase 2+ (Negative) H 09/26/20 15:20 Urine WBC (Auto) >30 /hpf (0-5) H 09/26/20 15:20 Urine RBC (Auto) 5-10 /hpf (0-4) H 09/26/20 15:20 U Hyaline Cast (Auto) 1-5 /lpf (0-5) 09/26/20 15:20 U Epithel Cells (Auto) 20-30 /lpf (0-5) H 09/26/20 15:20 Urine Bacteria (Auto) Negative (Negative) 09/26/20 15:20
[2020-09-26] MEDS ORDERED: PROPOFOL IV EMULSION 10 MG/ML 20 ML VIAL IV ONE (18:15)
[2020-09-26] MEDS ORDERED: fentaNYL citrate 100 MCG/2 ML VIAL ONE (18:15)
[2020-09-26] MEDS ORDERED: MIDAZOLAM HCL 1 MG/ML 2ML VIAL ONE (18:15)
[2020-09-26] MEDS ORDERED: LIDOCAINE 2% 2 ML VIAL/AMP(20MG/ML) INFIL ONE (18:15)
[2020-09-26] MEDS ORDERED: ONDANSETRON INJ 2 MG/ML 2 ML VIAL ONE (18:15)
[2020-09-26] MEDS ORDERED: ePHEDrine sulfate 50 MG/ML AMP ONE (18:16)
[2020-09-26] MEDS ORDERED: DIATRIZOATE MEGLUMINE 30% 100ML VIAL INSTIL ONE (18:53)
--- NOTE | 2020-09-26 19:34 | Post Operative Brief Note ---
PG Immediate Post Op with CF Date of Surgery September 26, 2020 Pre & Post Diagnosis Operation Date: 09/26/20 11:20 Pre-Op Diagnosis: RIGHT URETERAL STONE Post-Op Diagnosis: RIGHT URETERAL STONE I identified the patient and participated in the time-out.: Yes Procedure Operation Date: 09/26/20 11:20 Actual Procedures p Cystoscopy, Retrograde Pyelogram, Right Stent Placement, Posible Ureteroscopy, Laser Lithotripsy and stone extract(Right) - Alphonso Barrientos MD Surgeon Alphonso Barrientos MD Csw scrub nurse Estimated Blood Loss 5 Findings Consistent with Post-Op Diagnosis Specimens Specimen Description: A. RIGHT URETERAL STONE (CHEMICAL ANALYSIS)
--- NOTE | 2020-09-26 19:42 | Fluoroscopy Report ---
FL retrograde includes kub CLINICAL HISTORY: RIGHT CYSTO/STENT/RETRO COMPARISON STUDY: KUB and renal ultrasound performed earlier today. FLUOROSCOPY TIME: 20 seconds. FLUOROSCOPIC IMAGES: 3 FINDINGS: Fluoroscopy was provided during right retrograde exam, lithotripsy and ureteral stent inser tion. Proximal aspect of stent is within the right collecting system. IMPRESSION: Fluoroscopy provided during right retrograde exam with lithotripsy and ureteral stent in sertion. ACT 112: Negative or not required by law. Electronically signed by: Hoang Betancourt M.D. 09/26/2020 7:41 PM
[2020-09-26] MEDS ORDERED: MoRPHine SULFATE 4 MG/ML 1 ML CARP\\VIAL ONE (20:21)
[2020-09-26] MEDS: SODIUM CHLORIDE 0.9% 1000ML 1,000 ML IV SCH (20:25)
--- NOTE | 2020-09-26 20:27 | Anesthesiology Progress Note ---
Date of Service September 26, 2020 Anesthesia Post Procedure Vital Signs Vital Signs: Temp Pulse Pulse Pulse Resp BP BP 09/26/20 19:50 81 15 110/77 09/26/20 19:40 36.5 C 90 15 116/78 09/26/20 19:30 92 H 16 121/77 09/26/20 19:20 104 H 18 121/81 09/26/20 19:12 36.6 C 104 H 16 110/75 09/26/20 17:39 36.5 C 68 16 113/73 09/26/20 17:03 68 18 119/81 09/26/20 11:43 36.4 C L 90 18 126/80 Pulse Ox 09/26/20 19:50 98 09/26/20 19:40 93 09/26/20 19:30 98 09/26/20 19:20 98 09/26/20 19:12 99 09/26/20 17:39 93 09/26/20 17:03 99 09/26/20 11:43 96 Pain Intensity Right Flank: Pain Intensity: 5 Transfer of Care Handoff Completed per policy Notes Mental Status: alert / awake / arousable Patient Amnestic to Procedure: Yes Nausea / Vomiting: adequately controlled Pain: adequately controlled Airway Patency, RR, SpO2: stable & adequate BP & HR: stable & adequate Hydration State: stable & adequate Anesthetic Complications: no major complications apparent
[2020-09-26] MEDS: PHENAZOPYRIDINE HCL 100 MG TAB PO PRN (20:42)
[2020-09-26] MEDS: ACETAMINOPHEN 325 MG TAB PO PRN (22:26)
[2020-09-26] MEDS ORDERED: MoRPHine SULFATE 4 MG/ML 1 ML CARP\\VIAL IV STA (22:38)
[2020-09-27] MEDS: MoRPHine SULFATE 4 MG/ML 1 ML CARP\\VIAL IV PRN ×4 (00:20→21:19)
[2020-09-27] MEDS: SODIUM CHLORIDE 0.9% 1000ML 1,000 ML IV SCH ×3 (04:32→21:02)
[2020-09-27] MEDS: TAMSULOSIN HCL 0.4 MG CAP PO SCH (04:44)
[2020-09-27] MEDS: ONDANSETRON INJ 2 MG/ML 2 ML VIAL IV PRN ×2 (05:47→21:19)
[2020-09-27] MEDS: PHENAZOPYRIDINE HCL 100 MG TAB PO PRN ×3 (06:00→21:19)
--- NOTE | 2020-09-27 08:03 | Urology Progress Note ---
Date of Service September 27, 2020 Assessment & Plan (1) Calculus of distal right ureter: (2) Hydronephrosis, right: Plan: 54yo F admitted with intractable right flank pain secondary to a few 7 mm obstructive distal ureteral stones with associated hydronephrosis. - POD #1 s/p cystoscopy, right retrograde pyelogram, ureteroscopy, laser litho, stone extraction and stent placement by Dr. Barrientos. - Patient still with a moderate amount of right flank pain, likely due to the stent. - She is afebrile, VSS. - Labs reviewed, Wbc and creatinine stable. - UC&S pending. - Continue supportive care and antibiotic therapy, follow cultures. - Can consider addition of ibuprofen for pain as she cannot take ketoralac and prn oxybutynin for bladder spasms. - Recommend home with flomax, prn pyridium, prn pain control, and short course of antibiotics pending final culture results. - Will arrange outpatient follow-up with urology next week for stent management. - Expected clinical course reviewed, all questions were answered. - Thank you for allowing us to participate in the acute care of Ms. Bo. Please reconsult us with additional questions, concerns or changes in patient status. Admission and Anticipated Discharge Date Admission Date: September 26, 2020 Subjective Pt examined at bedside this AM. Awake, sitting in bedside chair on arrival. She reports a moderate amount of right flank pain with associated nausea - managing with IV pain/nausea medication. No fevers or chills. No vomiting. Pt reported feelings of incomplete bladder emptying early this morning. She voided 250ml, nursing bladder scanned for 115ml. Some hematuria and dysuria. Tolerating clear liquid diet. Patient reports utilizing ibuprofen in the past for stone/stent pain which she felt helped significantly. Chart review: Afebrile Wbc 3.57 Hgb 12.3 Cr 0.70 UC&S pending, On IV Ceftriaxone Urine output overnight - 800ml Review of Systems Constitutional: as per Subjective / HPI Gastrointestinal: as per Subjective / HPI Genitourinary: as per Subjective / HPI Physical Exam Constitutional: cooperative; no acute distress Respiratory: normal respiratory effort; no labored breathing Gastrointestinal (Abdomen): Inspection/Auscultation: abdomen normal to inspection Skin: No visible rashes or lesions to exposed skin areas Neurologic: awake Psychiatric: Orientation: alert and oriented x 3 Results & Data ([facility]) Vital Signs (Past 12 Hours) Vital Signs Temp Pulse Resp BP Pulse Ox 09/27/20 06:21 36.8 C 84 15 98/65 L 93 09/27/20 03:15 36.7 C 76 14 94/52 L 93 09/26/20 23:35 36.7 C 79 14 110/71 95 09/26/20 22:25 36.4 C L 80 14 118/81 98 09/26/20 21:07 36.1 C L 81 14 117/74 100 09/26/20 20:34 36.5 C 84 14 113/75 97 09/26/20 20:08 36.5 C 90 15 124/84 97 PG Care Time/CCT Total # of Minutes Spent Total Time Spent with Patient: Total time spent is greater than 50% in coordination of care (as documented) at patient's floor/unit and/or counseling patient: Coding Level of Care Code 01559 Subseq Hosp Care Lvl 2 Diagnoses Calculus of distal right ureter N20.1 Hydronephrosis, right N13.30
[2020-09-27] MEDS: ACETAMINOPHEN 325 MG TAB PO PRN (08:38)
[2020-09-27 09:07] LABS: Hematocrit (blood only) 37.4 % (37-47); Hemoglobin 12.3 g/dL (12.0-16.0); Mean Corpuscular Hemoglobin 30.3 pg (25-34); Mean Corpuscular Hgb Conc 32.9 g/dL (32-36); Mean Corpuscular Volume 92.1 fL (80-100); Mean Platelet Volume 9.2 fL (7.4-10.4); Platelet Count 142 K/uL (130-400); RDW Coefficient of Variation 13.3 % (11.5-14.5); RDW Standard Deviation 45.2 fL (36.4-46.3); Red Blood Count 4.06 M/uL (4.2-5.4); White Blood Count 3.57 K/uL (4.8-10.8)
[2020-09-27] MEDS ORDERED: PROMETHAZINE HCL 12.5 MG in SODIUM CHLORIDE 0.9% 50 ML IV STA (09:40)
[2020-09-27 09:48] LABS: Creatinine Clr Calc Pharmacy 78.4 ml/min; Est GFR (Non-African American) 97.5 ml/min; Potassium 4.1 mmol/L (3.5-5.1)
--- NOTE | 2020-09-27 10:43 | Operative Report (OR) ---
DATE OF PROCEDURE: 09/26/2020 PREOPERATIVE DIAGNOSIS: Distal right ureteral stone. POSTOPERATIVE DIAGNOSIS: Distal right ureteral stone. SURGEON: Alphonso Barrientos MD. PROCEDURE: Right ureteroscopy, laser lithotripsy, stone extraction and stent placement. ANESTHESIA: General. INDICATIONS: The patient is a 54-year-old female who has had a 7 mm distal right ureteral stone that is known, presented to the Emergency Room again for intractable pain. She was given options includi ng stent placement or ureteroscopy and chose to do the latter. DESCRIPTION OF PROCEDURE: The patient was taken to the cysto suite. She had been given antibiotics preoperatively. She had been consented. She had Venodyne stockings placed and was given general ane sthesia. Cystoscopy was then performed after she had been prepped and draped in the usual sterile fa shion in the dorsal lithotomy position. The right ureteral orifice was edematous. A guidewire was p assed beyond the stone through a 5-T[place] open-ended catheter and the stone was left in place, and th e cystoscope was removed and then a semirigid ureteroscope was passed into the distal ureter, and the stone was just inside the distal ureter and appeared to be impacted. Laser was then used to fragmen t the stone into multiple fragments. There were several stones more proximal. These were also fragm ented into smaller fragments. The laser fiber was then removed and a 3-prong grasper was used to rem ove multiple pieces, at least 5-6 were sent for stone analysis and multiple other fragments passed in to the bladder. After multiple attempts to pull multiple fragments out and during the process, multi ple pieces were passing through. I did not see any large fragments going up to the mid ureter. At t his point, I removed the ureteroscope, replaced the cystoscope over the guidewire and passed the open -ended catheter next to the guidewire and injected some contrast and then passed a 4.8 x 24 cm stent over the guidewire into the right renal pelvis. Good curl was left in the proximal renal pelvis and another curl was left in the bladder, and the patient was transferred to the recovery room in stable condition. Job ID: [id number]
[2020-09-27] MEDS: oxyCODONE HCL IR 5 MG TAB (IMMEDIATE RELEASE) PO PRN (15:27)
[2020-09-27] MEDS ORDERED: cefTRIAXone SODIUM 1,000 MG in DEXTROSE 5% 50 ML IV SCH (17:00)
--- NOTE | 2020-09-27 19:39 | Hospitalist Progress Note ---
Date of Service September 27, 2020 Assessment & Plan (1) Right ureteral stone: (2) Hydronephrosis, right: Plan: Present on admission with right flank pain and low-grade fever Diagnosed with a few 7 mm right ureteral calculi on 09/07 in ED -discharged on [place], Flomax, cefdinir with improvement in symptoms UA does not strongly suggest UTI however given reports of low-grade fever, and was starting on empiric IV ceftriaxone Urology on board S/P right ureteroscopy, laser lithotripsy, stone extraction and stent placement. Continue IVF, pain and entiemetic med Continue Flomax Clinically improves Abnormal UA UA positive for Leukocytes Urine cx pending Continue IV Rocephin for now (3) DVT prophylaxis: Plan: -SCDs Admission and Anticipated Discharge Date Admission Date: September 26, 2020 Subjective Pt was seen and examined for follow for flank pain Lying in bed with no distress Pt said that she feels tender around her right lower quadrant Denies any chest pain, palpitation, dizziness and SOB Physical Exam Physical Exam: General- No acute distress Head- atraumatic Eyes- PERRL, EOMI, ENT- oropharynx clear Neck- supple, no JVD Lungs- clear to auscultation Heart- regular rhythm; no murmur Abdomen- normal bowel sounds, soft, nontender Extremities- no calf tenderness Neuro- alert, oriented x 3; PERRL, EOMI; no facial palsy; no dysarthria Skin- warm & dry Results & Data Results & Data ([facility]) Vital Signs (Past 12 Hours) Vital Signs Temp Pulse Resp BP Pulse Ox 09/27/20 15:32 37.2 C 81 16 98/68 L 97 09/27/20 11:34 36.8 C 81 16 99/64 L 96
[2020-09-27] MEDS: IBUPROFEN 200 MG TAB PO PRN (22:10)
[2020-09-28] MEDS: ACETAMINOPHEN 325 MG TAB PO PRN ×4 (00:33→13:51)
[2020-09-28] MEDS: oxyCODONE HCL IR 5 MG TAB (IMMEDIATE RELEASE) PO PRN ×3 (00:34→13:51)
[2020-09-28] MEDS: MoRPHine SULFATE 4 MG/ML 1 ML CARP\\VIAL IV PRN ×3 (04:29→16:32)
[2020-09-28] MEDS: SODIUM CHLORIDE 0.9% 1000ML 1,000 ML IV SCH ×2 (05:24→14:31)
[2020-09-28] MEDS: IBUPROFEN 200 MG TAB PO PRN (07:29)
[2020-09-28] MEDS: TAMSULOSIN HCL 0.4 MG CAP PO SCH (08:27)
[2020-09-28] MEDS: PHENAZOPYRIDINE HCL 100 MG TAB PO PRN (08:27)
[2020-09-28] MEDS: ONDANSETRON INJ 2 MG/ML 2 ML VIAL IV PRN ×3 (08:35→16:27)
[2020-09-28] MEDS ORDERED: cephALEXin 500 MG CAP PO SCH (17:00)
[2020-10-03 01:06] LABS: Component 2 DNR; Source KIDNEY STONE
--- NOTE | 2020-10-07 09:29 | Discharge Summary ---
Date of Service September 28, 2020 Admission HPI Per Admitting Provider 54-year-old female with PMH history of kidney stones, PFO, history of migraines, osteoporosis, other problems listed below who presents the ED for evaluation of right flank pain. Patient seen in the ED on 09/07 and diagnosed with right ureteral 7 mm stones. She was discharged home with [place], Flomax, Zofran, cefdinir and instructions to follow-up with urology. Patient reports she initially had some improvement in her pain however right flank pain returned. Patient reports pain is radiating around into her abdomen and into the right groin. She reports running low-grade fevers. Denies dysuria and hematuria. No chest pain or shortness of breath. Denies abdominal pain, nausea, vomiting, diarrhea. In the ED, patient is afebrile, hemodynamically stable. Renal functions WNL. Renal ultrasound shows moderate right hydroureteronephrosis with multiple calculi within the distal right ureter/ureterovesical junction. Patient was given IV ceftriaxone, IV morphine, IV Zofran, IVF. She will be evaluated by urology. Admission Exam Per Admitting Provider Constitutional: WD/WN, vitals as above Eyes: PERRL, conjunctivae normal, anicteric sclerae ENMT: external ear and nose normal, oropharynx normal Respiratory: normal respiratory effort, lungs clear to auscultation Cardiovascular: regular rate and regular rhythm Vessels: normal peripheral pulses Extremities: no edema Gastrointestinal: normal bowel sounds, soft, nontender, no hepatosplenomegaly Musculoskeletal:no cyanosis or clubbing, extremities motor strength 5/5 Skin: no rashes, warm and dry Neurologic: PERRL, EOMI, accommodation nl, no face palsy, no dysarthria Psychiatric: A+Ox3, euthymic affect Genitourinary: + CVA tenderness (right) Principal Diagnosis Right ureteral stone: Hydronephrosis, right: Urinary tract infection Discharge Exam General- No acute distress Head- atraumatic Eyes- PERRL, EOMI, ENT- oropharynx clear Neck- supple, no JVD Lungs- clear to auscultation Heart- regular rhythm; no murmur Abdomen- normal bowel sounds, soft, nontender Extremities- no calf tenderness Neuro- alert, oriented x 3; PERRL, EOMI; no facial palsy; no dysarthria Skin- warm & dry Discharge Data Allergies Allergy/AdvReac Type Severity Reaction Status Date / Time azithromycin [From Zithromax] Allergy Severe Hives Verified 09/26/20 15:49 dihydroergotamine Allergy Severe "THROAT Verified 09/26/20 15:49 SHUTS DOWN" ketorolac Allergy Intermediate HIVES Verified 09/26/20 15:49 Penicillins Allergy Intermediate Hives Verified 09/26/20 15:49 Consultations 09/26/20 15:06 Consult Urology Stat 09/26/20 15:21 ED Decision to Admit Stat Procedures Performed Operation Date: 09/26/20 11:20 Actual Procedures p Retrograde Pyelogram, Posible Ureteroscopy, Laser Lithotripsy and stone extract(Right) - Alphonso Barrientos MD s Cystoscopy(Not Applicable) - Alphonso Barrientos MD s Right Stent Placement, - Alphonso Barrientos MD Ordered Studies 09/26/20 FL retrograde includes kub Routine 09/26/20 15:22 US renal/blad retro comp Stat RENAL ULTRASOUND CLINICAL HISTORY: Right flank pain. COMPARISON STUDY: CT of the abdomen and pelvis September 07, 2020. Renal ultrasound September 25, 2020. KUB performed earlier today. TECHNIQUE: Sonography of the kidneys and the urinary bladder was performed. FINDINGS: Right kidney measures 10.4 cm in maximal dimension and the left measures 9.4 cm. Moderate right hydroureteronephrosis is similar to ultrasound of September 25, 2020. There are multiple left renal calculi. There are multiple calculi within the distal right ureter that measure up to approximately 6 mm. There is no left hydronephrosis. Left ureteral jet was visualized. The right ureteral jet was not visualized. IMPRESSION: 1. No significant change in moderate right hydroureteronephrosis with multiple calculi within the distal right ureter/ureterovesical junction. 2. Left-sided nephrolithiasis. ACT 112: Negative or not required by law. Electronically signed by: Hoang Betancourt M.D. 09/26/2020 4:56 PM Dictated: 09/26/201653Transcribed: 09/26/201653 KUB CLINICAL HISTORY: right sided pain COMPARISON STUDY: CT of the abdomen and pelvis September 07, 2020. KUB September 25, 2020. FINDINGS: Several small left renal calculi are noted. Note is made of multiple calcifications within the right inferior pelvis which measure up to 5 mm. These suggest distal right ureteral calculi. Several small left renal calculi are present. Additional pelvic calcifications reflect phleboliths. IMPRESSION: Multiple suspected distal right ureteral calculi that measure up to approximately 5 mm. ACT 112: Negative or not required by law. Electronically signed by: Hoang Betancourt M.D. 09/26/2020 3:54 PM Dictated: 09/26/20 1550Transcribed: 09/26/20 1550 FL retrograde includes kub CLINICAL HISTORY: RIGHT CYSTO/STENT/RETRO COMPARISON STUDY: KUB and renal ultrasound performed earlier today. FLUOROSCOPY TIME: 20 seconds. FLUOROSCOPIC IMAGES: 3 FINDINGS: Fluoroscopy was provided during right retrograde exam, lithotripsy and ureteral stent insertion. Proximal aspect of stent is within the right collecting system. IMPRESSION: Fluoroscopy provided during right retrograde exam with lithotripsy and ureteral stent insertion. ACT 112: Negative or not required by law. Electronically signed by: Hoang Betancourt M.D. 09/26/2020 7:41 PM Dictated: 09/26/201939Transcribed: 09/26/201939 Hospital Course (1) Right ureteral stone: (2) Hydronephrosis, right: Present on admission with right flank pain and low-grade fever Diagnosed with a few 7 mm right ureteral calculi on 09/07 in ED -discharged on [place], Flomax, cefdinir with improvement in symptoms UA does not strongly suggest UTI however given reports of low-grade fever, and was starting on empiric IV ceftriaxone Urology on board S/P right ureteroscopy, laser lithotripsy, stone extraction and stent placement. Continue IVF, pain and entiemetic med Continue Flomax Clinically improves Abnormal UA UA positive for Leukocytes Urine cx pending Continue IV Rocephin for now (3) DVT prophylaxis: -SCDs Total Time Total Time Spent Total Time Spent (In Minutes): 35 minutes Discharge Plan Discharge Items Patient Disposition: Home - Self-Care Reason For Visit: RENAL CALCULI Discharge Diagnosis: Right ureteral stone: Hydronephrosis, right: Urinary tract infection Condition on Discharge: Good Activity: Resume your previous activity Non-emergency contact: Primary Care Provider and Urologist Call non-emergency contact if: you have any medication questions Follow-up/Referrals: Urbano Cast DO [Primary Care Provider] - Diet: Regular Addtl Attending Provider Instructions: Follow up with your primary care provider Dr. Cast in 1 week Follow up with urology on Wednesday for the stent management Complete course of the antibiotic with Keflex Do no drive or operate any machine while taking narcotic Please hold next dose of narcotic if you become drowsy or lethargy Pending Studies at Discharge: Yes Studies:: Stone composition pending Stand-Alone Forms: My [facility] FreeATM, Smoking Cessation Medications and DC Order Prescriptions: New cephalexin 500 mg capsule 500 mg PO BID Qty: 10 RF: 0 Continued cholecalciferol (vitamin D3) [Vitamin D3] 5,000 unit Tablet 5,000 units PO QAM RF: 0 multivitamin [Multiple Vitamins] Tablet 1 tab PO QAM RF: 0 meperidine (PF) 100 mg/mL solution 1 ml IM DIRECTED PRN (Reason: Migraine Headache) RF: 0 sumatriptan succinate [Imitrex] 100 mg tablet 100 mg PO UD PRN (Reason: Migraine Headache) RF: 0 sennosides-docusate sodium [Senna-S] 8.6-50 mg Tablet 1 tab PO BID RF: 0 folic acid 400 mcg Tablet 400 mcg PO QAM RF: 0 selenium [SelenoMax] 200 mcg Tablet 200 mcg PO QAM RF: 0 ascorbic acid (vitamin C) [Vitamin C] 500 mg Tablet 500 mg PO BID RF: 0 Premarin 0.625 mg/gram Cream 1 applic Vaginal 2XWK RF: 0 lysine [L-Lysine] 500 mg Tablet 500 mg PO DAILY PRN (Reason: Cold Sore(s)) RF: 0 fluticasone propionate [Flonase Allergy Relief] 50 mcg/actuation [place],Suspension 1 spray INTRANASAL DAILY PRN (Reason: Allergy Symptoms) RF: 0 vitamin B complex [Vitamins B Complex] Tablet 1 tab PO QAM RF: 0 ondansetron 4 mg tablet,disintegrating 4 mg PO Q6H PRN (Reason: nausea and vomiting) Qty: 20 RF: 0 ibuprofen 800 mg Tablet 800 mg PO DIRECTED PRN (Reason: Pain) RF: 0 tamsulosin [Flomax] 0.4 mg capsule 0.4 mg PO DAILY Qty: 30 RF: 0 Discontinued hydrocodone-acetaminophen 5-325 mg tablet 1 - 2 tab PO Q6H PRN (Reason: pain) Qty: 20 RF: 0 No Action phenazopyridine [Pyridium] 100 mg tablet 100 mg PO TID PRN (Reason: bladder spasms) Qty: 10 RF: 0 hydrocodone-acetaminophen 5-325 mg tablet 1 tab PO Q6H PRN (Reason: pain) Qty: 7 RF: 0 Discharge Orders: Discharge Order (Routine); Ordered 09/28/20 Ordered By: Yesika Andrews Admission Data Admit Date/Time: 09/26/20 16:22 Attending Provider: Yesika Andrews Admit Provider: Holden Baker Primary Care Provider: Urbano Cast Other Providers: Alphonso Barrientos ; Holden Baker Other Interventions: Discharge Summary Assessment (RN) Last Done: 09/28/20 17:17
== END 2020-09-28 17:36 | disposition home or self-care (01) | DRG 660 ==
LOC: ED 11:33 → SUATTDRO 16:22 → OR 17:23 → 3N 17:24

== ENCOUNTER 2023-01-28 08:54 | Inpatient (IN) ==
--- NOTE | 2023-01-28 09:16 | Emergency Department Note ---
Impression & Plan Vertigo, Ataxia, Sinusitis, Chest pain ED Provider Note NAME: ERIKA LOPEZ AGE: 57 SEX: F : 1965 ARRIVES VIA: Walk-In INFORMANT: Patient, ED PROVIDER(S): Shaq Hernandez DO CHIEF COMPLAINT: Off balance HPI: The patient is a 57-year-old female who presented to the emergency department for an evaluation of vertigo. The patient states she had an acute onset of vertigo at approximately 730 this morning. 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 She was here because of the symptoms. She states that she cannot walk correctly. She also states that she has chest pain and left-sided neck pain. She denies having any vomiting. She does complain of nausea. The patient has no similar symptoms in the past. She has a history of migraines but has no headache at this time. She has a history of a PFO. The patient states that she recently had a sinus infection and was taking antibiotics. She states her symptoms are moderate. They worsen with trying to ambulate. ROS: See above HPI for pertinent positives & negatives. A total of 10 systems reviewed and were otherwise negative. PAST MEDICAL HISTORY: See Below PAST SURGICAL HISTORY: See Below FAMILY HISTORY: See Below SOCIAL HISTORY: See Below HOME MEDICATIONS: See Below ALLERGIES: See Below VITALS: See Below PHYSICAL EXAMINATION: GENERAL: The patient is awake and alert. She is very anxious. EYES: The conjunctivae are clear. The pupils are round and reactive. EARS, NOSE, MOUTH AND THROAT: The nose is without any evidence of any deformity. NECK: The neck is nontender and supple. RESPIRATORY: Normal respiratory effort is noted there is no evidence of wheezing rhonchi or rales CARDIOVASCULAR: Regular rate and rhythm noted there no murmurs rubs or gallops normal S1 normal S2. GASTROINTESTINAL: The abdomen is soft. Abdomen is nontender. MUSCULOSKELETAL/EXTREMITIES: There is no evidence of gross deformity full range of motion is noted in the hips and shoulders. SKIN: There is no obvious evidence of any rash. There are no petechiae, pallor or cyanosis noted. NEUROLOGIC: Patient is awake alert and oriented x3 strength is symmetric patellar reflexes are 2+ bilaterally. There is no nystagmus. Gait was very ataxic. The patient has abnormal [id number] with the left leg compared to the right. Rapid alternating movements are asymmetric with the left being more difficult. There is no drift. There is no facial droop. Speech is clear MEDICAL DECISION MAKING: The patient is a 57-year-old female who presented to the emergency department for an evaluation of vertigo symptoms. The patient was ataxic and appeared to have left-sided cerebellar findings. For this exam she had a stroke alert called. The patient was also recently treated with an antibiotic for a sinus infection. I discussed patient's laboratory and radiographic studies with her. She was evaluated by myself as well as the telestroke neurologist. The patient's symptoms slowly improved while in the emergency department. It was felt that this could represent a peripheral cause for her vertigo although given her history especially the PFO she was felt to be a better candidate for inpatient workup for possible strokelike symptoms. The patient was agreeable to this. I discussed her condition with the on-call [facility]. They have agreed to evaluate the patient in the emergency department for further management and disposition. Triage Nursing notes reviewed. Prior medical records reviewed Vital Signs: reviewed and remarkable for no significant abnormalities Differential diagnosis: Benign positional vertigo, dehydration, hypovolemia, anemia, tumor, infection, hypoglycemia, electrolyte abnormalities, cardiac sources, intracerebral event, toxicologic, neurologic, as well as other pathologies. ER treatment provided: See below Diagnostics interpreted by me: ECG: EKG was obtained in the emergency department. My interpretation is normal sinus rhythm at 71 bpm. There is no ectopy. Right bundle branch block pattern was appreciated. This was compared to a tracing from July 03, 2018. No changes were noted Cardiac Monitoring: An order was placed for continuous cardiac monitoring. The monitor shows a rate of 74 bpm with sinus rhythm. Laboratory studies: As stated above and show below. Imaging studies: See below. Radiographic imaging was reviewed by myself Consultation(s): I discussed this case with Dr. St who is on for [facility] telestroke neurology. I discussed this case with Geni who is on-call for the [facility] group. ED COURSE: Procedures: none Critical Care: I have personally spent greater than 35 minutes of critical care time in the direct management of this patient. This includes bedside care, interpretation of diagnostic studies, and testing, discussion with consultants, patient, and family members, and other required patient management activities. This 35 minutes is in excess of all separately billable procedures. Past Med/Surg History Medical History Hypothyroidism Acute viral labyrinthitis Stroke-like symptoms Hydronephrosis Calculus of distal right ureter Right ureteral stone Hydronephrosis, right Osteoporosis Lyme disease History of kidney stones Patent foramen ovale (07/27/12) Migraine headache Surgical History H/O bilateral oophorectomy History of hysterectomy Family History Mother Cervical cancer Social History Smoking Status: Never smoker Hx Alcohol Use: No Hx Substance Use: No Preferred Language: Chinese Communication Ability: Effective Manager Activities Required: No Beliefs That Will Affect Care: None Current Living Situation: Spouse Other Information That Helps Us Care for You: Yes Feels Safe at Home: Yes Safety Concerns: Feels Safe At This Time Assistive Devices: Glasses Allergies Allergies Allergy/AdvReac Type Severity Reaction Status Date / Time azithromycin [From Zithromax] Allergy Severe Hives Verified 01/28/23 10:13 dihydroergotamine Allergy Severe "THROAT Verified 01/28/23 10:13 SHUTS DOWN" ketorolac Allergy Intermediate HIVES Verified 01/28/23 14:34 Penicillins Allergy Intermediate Hives Verified 01/28/23 10:13 Home Meds Home Medications Medication Instructions Recorded Confirmed ascorbic acid (vitamin C) 500 mg 500 mg PO QAM 11/11/17 01/28/23 tablet (Vitamin C) conjugated estrogens 0.625 mg/gram 1 applic vaginal 2XWK 11/11/17 01/28/23 vaginal cream (Premarin) fluticasone propionate 50 1 spray intranasal DAILY PRN 11/11/17 01/28/23 mcg/actuation nasal Allergy Symptoms spray,suspension (Flonase Allergy Relief) folic acid 400 mcg tablet 400 mcg PO QAM 11/11/17 01/28/23 lysine 500 mg tablet (L-Lysine) 500 mg PO DAILY PRN Cold Sore(s) 11/11/17 01/28/23 selenium 200 mcg tablet (SelenoMax) 200 mcg PO QAM PRN illness 11/11/17 01/28/23 sennosides 8.6 mg-docusate sodium 1 tab PO BID PRN Constipation 11/11/17 01/28/23 50 mg tablet (Senna-S) sumatriptan succinate 100 mg 100 mg PO UD PRN Migraine Headache 11/11/17 01/28/23 tablet (Imitrex) cholecalciferol (vitamin D3) 125 5,000 units PO QAM 07/03/18 01/28/23 mcg (5,000 unit) tablet (Vitamin D3) meperidine (PF) 100 mg/mL 1 ml IM DIRECTED PRN Migraine 07/03/18 01/28/23 injection solution Headache multivitamin (Multiple Vitamins 1 tab PO QAM 07/03/18 01/28/23 tablet) ibuprofen 800 mg tablet 800 mg PO DIRECTED PRN Pain 09/26/20 01/28/23 galcanezumab-gnlm 120 mg/mL 120 mg subcut MONTHLY 10/25/22 01/28/23 subcutaneous syringe (Emgality) cephalexin 500 mg capsule 500 mg PO BID 01/28/23 01/28/23 levothyroxine 25 mcg tablet 25 mcg PO QAM 01/28/23 01/28/23 Previous Rx's Medication Instructions Recorded ondansetron 4 mg disintegrating 4 mg PO Q6H PRN nausea and 09/07/20 tablet vomiting #20 tabs phenazopyridine 100 mg tablet 100 mg PO TID PRN bladder spasms 10/04/20 (Pyridium) #10 tabs Results & Data (ED) Vital Signs Vital Signs - 24 hr 01/28/23 08:58 01/28/23 09:32 01/28/23 09:33 Temperature 36.7 C Temperature Source Temporal Artery Scan Pulse Rate 78 78 Pulse Rate [Apical] 82 Pulse Rate from SpO2 Sensor Respiratory Rate 17 18 Respiratory Effort / Characteristics Non-Labored Spontaneous Respiratory Depth Normal Blood Pressure 128/89 Blood Pressure [Right Arm] 137/89 Blood Pressure Mean 102 Blood Pressure Mean [Right Arm] 105 Blood Pressure Position Sitting Pulse Oximetry 99 99 Oxygen Delivery Method Room Air Room Air Sepsis Recent Fever Within 48 Hours No Sepsis New/Unexplained Change in Mental Status No Sepsis Action Taken by Nursing No Action Required 01/28/23 09:33 01/28/23 09:44 01/28/23 09:44 Temperature Temperature Source Pulse Rate 82 71 Pulse Rate [Apical] Pulse Rate from SpO2 Sensor 81 72 Respiratory Rate 16 15 Respiratory Effort / Characteristics Respiratory Depth Blood Pressure 142/93 H Blood Pressure [Right Arm] Blood Pressure Mean 101 Blood Pressure Mean [Right Arm] Blood Pressure Position Pulse Oximetry 98 99 Oxygen Delivery Method Sepsis Recent Fever Within 48 Hours Sepsis New/Unexplained Change in Mental Status Sepsis Action Taken by Nursing 01/28/23 09:45 01/28/23 09:45 01/28/23 10:02 Temperature Temperature Source Pulse Rate 72 72 Pulse Rate [Apical] Pulse Rate from SpO2 Sensor 70 Respiratory Rate 17 19 Respiratory Effort / Characteristics Respiratory Depth Blood Pressure 133/88 Blood Pressure [Right Arm] Blood Pressure Mean 105 Blood Pressure Mean [Right Arm] Blood Pressure Position Pulse Oximetry 99 Oxygen Delivery Method Sepsis Recent Fever Within 48 Hours Sepsis New/Unexplained Change in Mental Status Sepsis Action Taken by Nursing 01/28/23 10:15 01/28/23 10:15 Temperature Temperature Source Pulse Rate 70 Pulse Rate [Apical] Pulse Rate from SpO2 Sensor 71 Respiratory Rate 22 Respiratory Effort / Characteristics Respiratory Depth Blood Pressure 115/81 Blood Pressure [Right Arm] Blood Pressure Mean 89 Blood Pressure Mean [Right Arm] Blood Pressure Position Pulse Oximetry 97 Oxygen Delivery Method Sepsis Recent Fever Within 48 Hours Sepsis New/Unexplained Change in Mental Status Sepsis Action Taken by Half-Way Medications Current Medication List: was personally reviewed by me Laboratory Data Attestation: I reviewed the patient's lab results. 01/28/23 09:09 01/28/23 09:09 Lab Results 01/28/23 01/28/23 01/28/23 Range/Units 09:09 09:15 09:21 WBC 4.44 L (4.8-10.8) K/ul RBC 4.54 (4.20-5.40) M/uL Hgb 13.5 (12.0-16.0) g/dl POC Hgb 13.6 (12.0-16.0) g/dl Hct 40.2 (37.0-47.0) % POC Hct 40 (37-47) % MCV 88.5 (80.0-100.0) fL MCH 29.7 (25.0-34.0) pg MCHC 33.6 (32.0-36.0) g/dL RDW Std Deviation 40.7 (36.4-46.3) fL RDW Coeff of Uma 12.4 (11.5-14.5) % Plt Count 202 (130-400) K/uL MPV 9.9 (9.4-12.4) fL Immature Gran % (Auto) 0.2 % Neut % (Auto) 63.5 % Lymph % (Auto) 20.3 % [place] % (Auto) 12.4 % Eos % (Auto) 2.5 % Baso % (Auto) 1.1 % Neut # (Auto) 2.82 (1.40-6.50) K/uL Lymph # (Auto) 0.90 L (1.20-3.40) K/uL [place] # (Auto) 0.55 (0.11-0.59) K/uL Eos # (Auto) 0.11 (0.00-0.50) K/uL Baso # (Auto) 0.05 (0.00-0.20) K/uL Immature Gran # (Auto) 0.01 (0.01-0.20) K/uL PT 11.6 (9.0-12.0) Seconds INR 1.1 (0.9-1.1) APTT 30.8 (21.0-31.0) Seconds PTT Ratio 1.1 POC Sodium 140 (135-144) mmol/L Sodium 139 (136-145) mmol/L POC Potassium 4.0 (3.3-5.0) mmol/L Potassium 4.0 (3.5-5.1) mmol/L POC Chloride 102 (101-112) mmol/L Chloride 104 (98-107) mmol/L Carbon Dioxide 31 (21-32) mmol/L POC Total CO2 28 (24-31) mmol/L Anion Gap 4 (3-11) POC Anion Gap 16.0 (16-25) mmol/L POC BUN 13 (7-18) mg/dl BUN 13 (6-23) mg/dl Creatinine 0.81 (0.6-1.2) mg/dl POC Creatinine 0.9 (0.6-1.3) mg/dl Est Cr Clr Drug Dosing 65.4 ml/min Est GFR ( Amer) 92.8 ml/min Est GFR (Non-Af Amer) 80.1 ml/min BUN/Creatinine Ratio 16.0 (10-20) Glucose 68 L (70-99(Fasting)) mg/dl POC Glucose 71 (70-99) mg/dl POC Glucose (other) 70 (70-99) mg/dl Calcium 9.2 (8.6-10.3) mg/dl POC Ioniz Calcium Mike 1.09 L (1.12-1.32) mmol/l Phosphorus 3.2 (2.5-4.9) mg/dl Magnesium 2.0 (1.7-2.4) mg/dl Total Bilirubin 0.4 (0.2-1.0) mg/dl AST 16 (13-39) U/L ALT 12 (7-52) U/L Alkaline Phosphatase 60 (34-104) U/L Troponin I High Sens < 2.3 (0-14) pg/ml Total Protein 7.2 (6.0-8.3) gm/dl Albumin 4.5 (3.4-5.0) gm/dl Globulin 2.7 (2.5-4.0) gm/dl Albumin/Globulin Ratio 1.7 (0.9-2) Administered Medications Enoxaparin Sodium (Enoxaparin Inj 40 Mg/0.4 Ml Syr) 40 mg SQ QAM PETRA Stop: 02/27/23 10:29 Last Admin: 01/28/23 12:31 Dose: 40 mg Documented By: MATTHEW Dextrose/Sodium Chloride (D5w And Nss) 1,000 mls @ 75 mls/hr IV .[id number] PETRA Stop: 01/28/23 23:49 Last Admin: 01/28/23 12:31 Dose: 75 mls/hr Documented By: MATTHEW Prednisone (Prednisone 20 Mg Tab) 60 mg PO DAILY PETRA Stop: 03/03/23 09:00 Last Admin: 01/28/23 12:31 Dose: 60 mg Documented By: MATTHEW Discontinued Medications Aspirin (Aspirin Chew 324 Mg) 324 mg PO NOW STA Stop: 01/28/23 09:51 Last Admin: 01/28/23 10:22 Dose: 324 mg Documented By: ALISHA Sodium Chloride (Nss) 1,000 mls @ 999 mls/hr IV .Q1H1M ONE Stop: 01/28/23 10:50 Last Infusion: 01/28/23 11:30 Dose: Infused Documented By: Admin: 01/28/23 10:16 Dose: 999 mls/hr Documented By: ALISHA Magnesium Sulfate/Dextrose (Magnesium Sulfate / D5w) 1 gm in 100 mls @ 100 mls/hr IV NOW STA Stop: 01/28/23 10:49 Last Infusion: 01/28/23 11:58 Dose: Infused Documented By: Admin: 01/28/23 10:16 Dose: 100 mls/hr Documented By: ALISHA Pantoprazole Sodium 40 mg/ (Syringe) 10 mls @ 5 mls/min IV DAILY ONE Stop: 01/28/23 10:17 Last Admin: 01/28/23 12:31 Dose: 5 mls/min Documented By: MATTHEW Ceftriaxone Sodium (Rocephin) 2,000 mg in 50 mls @ 100 mls/hr IV NOW STA Stop: 01/28/23 11:00 Last Infusion: 01/28/23 13:07 Dose: Infused Documented By: Admin: 01/28/23 12:30 Dose: 100 mls/hr Documented By: MATTHEW Ioversol (Optiray 320 125ml) 116 ml IV ONCE ONE Stop: 01/28/23 09:19 Last Admin: 01/28/23 09:18 Dose: 116 ml Documented By: YESICA Lorazepam (Lorazepam 1 Mg/1 Ml Syr Ed Inj Use) 1 mg IV ONE STA Stop: 01/28/23 10:32 Last Admin: 01/28/23 11:41 Dose: 1 mg Documented By: MATTHEW Meclizine HCl (Meclizine Hcl 25 Mg Tab) 25 mg PO NOW STA Stop: 01/28/23 09:51 Last Admin: 01/28/23 10:16 Dose: 25 mg Documented By: ALISHA Ondansetron HCl (Ondansetron Inj 2 Mg/Ml 2 Ml Vial) 4 mg IV NOW STA Stop: 01/28/23 09:31 Last Admin: 01/28/23 09:33 Dose: 4 mg Documented By: ALISHA Ondansetron HCl (Ondansetron Inj 2 Mg/Ml 2 Ml Vial) Confirm Administered Dose 4 mg .ROUTE .STK-MED ONE Stop: 01/28/23 09:32 Last Admin: 01/28/23 09:34 Dose: Not Given Documented By: AZALIA Imaging Data Attestation: I personally reviewed and interpreted this imaging study as follows: My Impression: CT the brain was obtained in the emergency department. My interpretation is no intracranial hemorrhage or mass effect, final report below. Radiologist's Impression: Chest CTA 01/28/23 09:09 CT angio chest dissec wo/w con HISTORY: 57 years-old Female chest pain and stroke symptoms acute chest pain COMPARISON: CT abdomen and pelvis 10/25/2022 TECHNIQUE: CTA of the chest was obtained both with and without the use of IV contrast. 3-D coronal and sagittal maps were obtained and submitted for review. A dose lowering technique was used consistent with the principals of GENE. FINDINGS: CTA: No intramural or mediastinal hematoma. The heart is mildly enlarged. Trace pericardial effusion. No thoracic aortic aneurysm or dissection. The ascending thoracic aorta at the level of the main pulmonary artery measures 3.6 cm. The imaged great vessels appear patent. Unremarkable pulmonary artery. CT CHEST: Unremarkable thyroid. No lymphadenopathy. No pneumothorax, pleural effusion or pulmonary edema. 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 Additional bronchial atresia of the basal left lower lobe. The right lung is clear. No acute upper abdominal abnormality. There are a few subcentimeter hypodensities of the liver which are too small to characterize, likely cysts. Splenomegaly. Probable right renal cysts. Partially imaged mild left-sided hydronephrosis. On obstructing calculi left kidney measure up to 4 mm. Mild mid to distal esophageal wall thickening. IMPRESSION: 1. Left nephrolithiasis with partially imaged mild left-sided hydronephrosis. Correlation with renal ultrasound recommended along with KUB radiograph in order to exclude a ureteral calculus (specifically, conducting a CT abdomen and pelvis at this time would not be advised secondary to the IV contrast administered which would obscure a ureteral calculus). 2. Unremarkable thoracic aorta. No pulmonary emboli identified. 3. 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 4. Mild mid to distal esophageal wall thickening may represent esophagitis. ACT 112: Negative or not required by law. The above report was generated using voice recognition software. It may contain grammatical, syntax or spelling errors. Electronically signed by: Tony Saab M.D. 01/28/2023 10:[address] 01/28/23 09:09 CT angio head w con, CT head/brain wo con, CT angio neck with con CLINICAL HISTORY: 57 years-old Female with neuro deficit, acute stroke suspected. Acute stroke like symptoms COMPARISON STUDY: None TECHNIQUE: Unenhanced axial CT scan of the brain is performed. Subsequently, following the IV administration of 116 cc of Optiray, CT angiogram of the head and neck was performed from the arch to the skull apex. Images are reviewed in the axial, sagittal, and coronal planes. 3-D MIPS images are created and assessed. IV contrast was administered without complication. All measurements were obtained according to NASCET criteria. A dose lowering technique was utilized adhering to the principles of ALARA. CT DOSE: 1849.81 mGy.cm FINDINGS: CT BRAIN: There is no acute intracranial hemorrhage, midline shift, hydrocephalus, intracranial mass, territorial ischemia or abnormal extra-axial collections. No abnormal intra-axial or extra-axial enhancement. Mastoid air cells and middle ear cavities are clear. No calvarial fracture.. Unremarkable soft tissues. Complete opacification of the maxillary sinuses with moderate mucosal thickening of the sphenoid sinuses with air-fluid level.. Cerebrovascular calcifications. CT ANGIOGRAM OF THE HEAD AND NECK: Three-vessel morphology of the thoracic aortic arch. Patency of the innominate and image subclavian arteries. The internal carotid arteries are patent. The bilateral anterior and middle cerebral arteries are also patent. The vertebrobasilar system and posterior cerebral arteries are widely patent. There is no aneurysm, high-grade stenosis, or proximal branch occlusion identified. Dural sinuses appear patent. The lung apices are clear. Mild heterogeneity of the thyroid. Degenerative changes of the cervical spine. IMPRESSION: 1. No acute intracranial abnormality. 2. Unremarkable CTA of the head and neck. 3. Paranasal sinus disease as above with probable acute sphenoid sinusitis. ACT 112: Negative or not required by law. The above report was generated using voice recognition software. It may contain grammatical, syntax or spelling errors. Electronically signed by: Tony Saab M.D. 01/28/2023 9:51 AM Head CTA 01/28/23 09:09 CT angio head w con, CT head/brain wo con, CT angio neck with con CLINICAL HISTORY: 57 years-old Female with neuro deficit, acute stroke suspected. Acute stroke like symptoms COMPARISON STUDY: None TECHNIQUE: Unenhanced axial CT scan of the brain is performed. Subsequently, following the IV administration of 116 cc of Optiray, CT angiogram of the head and neck was performed from the arch to the skull apex. Images are reviewed in the axial, sagittal, and coronal planes. 3-D MIPS images are created and assessed. IV contrast was administered without complication. All measurements were obtained according to NASCET criteria. A dose lowering technique was utilized adhering to the principles of ALARA. CT DOSE: 1849.81 mGy.cm FINDINGS: CT BRAIN: There is no acute intracranial hemorrhage, midline shift, hydrocephalus, intracranial mass, territorial ischemia or abnormal extra-axial collections. No abnormal intra-axial or extra-axial enhancement. Mastoid air cells and middle ear cavities are clear. No calvarial fracture.. Unremarkable soft tissues. Complete opacification of the maxillary sinuses with moderate mucosal thickening of the sphenoid sinuses with air-fluid level.. Cerebrovascular calcifications. CT ANGIOGRAM OF THE HEAD AND NECK: Three-vessel morphology of the thoracic aortic arch. Patency of the innominate and image subclavian arteries. The internal carotid arteries are patent. The bilateral anterior and middle cerebral arteries are also patent. The vertebrobasilar system and posterior cerebral arteries are widely patent. There is no aneurysm, high-grade stenosis, or proximal branch occlusion identified. Dural sinuses appear patent. The lung apices are clear. Mild heterogeneity of the thyroid. Degenerative changes of the cervical spine. IMPRESSION: 1. No acute intracranial abnormality. 2. Unremarkable CTA of the head and neck. 3. Paranasal sinus disease as above with probable acute sphenoid sinusitis. ACT 112: Negative or not required by law. The above report was generated using voice recognition software. It may contain grammatical, syntax or spelling errors. Electronically signed by: Tony Saab M.D. 01/28/2023 9:51 AM Neck CTA 01/28/23 09:09 CT angio head w con, CT head/brain wo con, CT angio neck with con CLINICAL HISTORY: 57 years-old Female with neuro deficit, acute stroke suspected. Acute stroke like symptoms COMPARISON STUDY: None TECHNIQUE: Unenhanced axial CT scan of the brain is performed. Subsequently, following the IV administration of 116 cc of Optiray, CT angiogram of the head and neck was performed from the arch to the skull apex. Images are reviewed in the axial, sagittal, and coronal planes. 3-D MIPS images are created and assessed. IV contrast was administered without complication. All measurements were obtained according to NASCET criteria. A dose lowering technique was utilized adhering to the principles of ALARA. CT DOSE: 1849.81 mGy.cm FINDINGS: CT BRAIN: There is no acute intracranial hemorrhage, midline shift, hydrocephalus, intracranial mass, territorial ischemia or abnormal extra-axial collections. No abnormal intra-axial or extra-axial enhancement. Mastoid air cells and middle ear cavities are clear. No calvarial fracture.. Unremarkable soft tissues. Complete opacification of the maxillary sinuses with moderate mucosal thickening of the sphenoid sinuses with air-fluid level.. Cerebrovascular calcifications. CT ANGIOGRAM OF THE HEAD AND NECK: Three-vessel morphology of the thoracic aortic arch. Patency of the innominate and image subclavian arteries. The internal carotid arteries are patent. The bilateral anterior and middle cerebral arteries are also patent. The vertebrobasilar system and posterior cerebral arteries are widely patent. There is no aneurysm, high-grade stenosis, or proximal branch occlusion identified. Dural sinuses appear patent. The lung apices are clear. Mild heterogeneity of the thyroid. Degenerative changes of the cervical spine. IMPRESSION: 1. No acute intracranial abnormality. 2. Unremarkable CTA of the head and neck. 3. Paranasal sinus disease as above with probable acute sphenoid sinusitis. ACT 112: Negative or not required by law. The above report was generated using voice recognition software. It may contain grammatical, syntax or spelling errors. Electronically signed by: Tony Saab M.D. 01/28/2023 9:51 AM Brain MRI 01/28/23 09:57 MR brain wo con CLINICAL HISTORY: Strokelike symptoms TECHNIQUE: Multiplanar and multisequence MR images of the brain were obtained without intravenous contrast. Comparison: Comparison is made to CTA head and neck 01/28/2023 FINDINGS: No abnormal restricted diffusion is identified. The white matter is unremarkable. The ventricular system is normal in appearance. No mass is seen. There is no mass effect or midline shift. There is no evidence of acute intraparenchymal hemorrhage. No extra axial fluid collections are seen. The corpus callosum, pituitary gland, and cerebellar tonsils appear grossly unremarkable. Flow voids of the major intracranial arterial vessels are identified. Sinus mucosal thickening is seen most prominent in the bilateral maxillary sinuses. IMPRESSION: No acute abnormality and in particular no evidence of acute infarct. Sinus disease is noted. ACT 112: Negative or not required by law. Electronically signed by: Darian Victor M.D. 01/28/2023 12:44 PM Discharge Plan Visit Data Chief Complaint: Vertigo Stated Complaint: VERTIGO; NECK AND CHEST PAIN ED Provider: Shaq Hernandez Discharge Problem: Vertigo, Ataxia, Sinusitis, Chest pain Patient Disposition: Being Evaluated by Hospitalist Discharge Instructions Interventions: ED Discharge Assessment Last Done: 01/28/23 13:20 Discharge Problem: Sinusitis Qualifiers: Sinusitis location: sphenoidal Chronicity: acute Recurrence: not specified as recurrent Qualified Code(s): J01.30 - Acute sphenoidal sinusitis, unspecified Chest pain Qualifiers: Chest pain type: unspecified Qualified Code(s): R07.9 - Chest pain, unspecified
[2023-01-28] MEDS ORDERED: OPTIRAY 320 125ml IV ONE (09:18)
[2023-01-28] MEDS ORDERED: ONDANSETRON INJ 2 MG/ML 2 ML VIAL IV STA (09:30)
[2023-01-28] MEDS ORDERED: ONDANSETRON INJ 2 MG/ML 2 ML VIAL ONE (09:31)
[2023-01-28 09:34] LABS: iSTAT Creatinine 0.9 mg/dl (0.6-1.3); iSTAT Hemoglobin 13.6 g/dl (12.0-16.0); iSTAT Ionized Calcium 1.09 mmol/l (1.12-1.32)
[2023-01-28 09:49] LABS: Basophils # (auto) 0.05 K/uL (0.00-0.20); Basophils % (auto) 1.1 %; Eosinophils # (auto) 0.11 K/uL (0.00-0.50); Eosinophils % (auto) 2.5 %; Hematocrit (blood only) 40.2 % (37.0-47.0); Hemoglobin 13.5 g/dl (12.0-16.0); Immature Granulocytes # (auto) 0.01 K/uL (0.01-0.20); Immature Granulocytes % (auto) 0.2 %; Lymphocytes % (auto) 20.3 %; Mean Corpuscular Hemoglobin 29.7 pg (25.0-34.0); Mean Corpuscular Hgb Conc 33.6 g/dL (32.0-36.0); Mean Corpuscular Volume 88.5 fL (80.0-100.0); Mean Platelet Volume 9.9 fL (9.4-12.4); Monocytes # (auto) 0.55 K/uL (0.11-0.59); Monocytes % (auto) 12.4 %; Neutrophils # (auto) 2.82 K/uL (1.40-6.50); Neutrophils % (auto) 63.5 %; Platelet Count 202 K/uL (130-400); RDW Coefficient of Variation 12.4 % (11.5-14.5); RDW Standard Deviation 40.7 fL (36.4-46.3); Red Blood Count 4.54 M/uL (4.20-5.40); White Blood Count 4.44 K/ul (4.8-10.8)
[2023-01-28] MEDS ORDERED: MECLIZINE HCL 25 MG TAB PO STA (09:50)
[2023-01-28] MEDS ORDERED: ASPIRIN CHEW 324 MG PO STA (09:50)
[2023-01-28] MEDS ORDERED: SODIUM CHLORIDE 0.9% 1,000 ML IV ONE (09:50)
[2023-01-28] MEDS ORDERED: MAGNESIUM SULFATE / D5W 1 GM/100 ML BAG IV STA (09:50)
--- NOTE | 2023-01-28 09:54 | CT Scan Report ---
CT angio head w con, CT head/brain wo con, CT angio neck with con CLINICAL HISTORY: 57 years-old Female with neuro deficit, acute stroke suspected. Acute stroke lik e symptoms COMPARISON STUDY: None TECHNIQUE: Unenhanced axial CT scan of the brain is performed. Subsequently, following the IV adminis tration of 116 cc of Optiray, CT angiogram of the head and neck was performed from the arch to the sk ull apex. Images are reviewed in the axial, sagittal, and coronal planes. 3-D MIPS images are created and assessed. IV contrast was administered without complication. All measurements were obtained acco rding to NASCET criteria. A dose lowering technique was utilized adhering to the principles of ALARA. CT DOSE: 1849.81 mGy.cm FINDINGS: CT BRAIN: There is no acute intracranial hemorrhage, midline shift, hydrocephalus, intracranial mass, territori al ischemia or abnormal extra-axial collections. No abnormal intra-axial or extra-axial enhancement. Mastoid air cells and middle ear cavities are clear. No calvarial fracture.. Unremarkable soft tissu es. Complete opacification of the maxillary sinuses with moderate mucosal thickening of the sphenoid sinuses with air-fluid level.. Cerebrovascular calcifications. CT ANGIOGRAM OF THE HEAD AND NECK: Three-vessel morphology of the thoracic aortic arch. Patency of the innominate and image subclavian a rteries. The internal carotid arteries are patent. The bilateral anterior and middle cerebral arterie s are also patent. The vertebrobasilar system and posterior cerebral arteries are widely patent. Ther e is no aneurysm, high-grade stenosis, or proximal branch occlusion identified. Dural sinuses appear patent. The lung apices are clear. Mild heterogeneity of the thyroid. Degenerative changes of the cervical sp ine. IMPRESSION: 1. No acute intracranial abnormality. 2. Unremarkable CTA of the head and neck. 3. Paranasal sinus disease as above with probable acute sphenoid sinusitis. ACT 112: Negative or not required by law. The above report was generated using voice recognition software. It may contain grammatical, syntax o r spelling errors. Electronically signed by: Tony Saab M.D. 01/28/2023 9:51 AM
[2023-01-28 10:06] LABS: Alanine Aminotransferase 12 U/L (7-52); Albumin Globulin Ratio 1.7 (0.9-2); Albumin Level 4.5 gm/dl (3.4-5.0); Alkaline Phosphatase 60 U/L (34-104); Anion Gap 4 (3-11); Aspartate Aminotransferase 16 U/L (13-39); Bilirubin,Total 0.4 mg/dl (0.2-1.0); Blood Urea Nitrogen 13 mg/dl (6-23); Calcium 9.2 mg/dl (8.6-10.3); Carbon Dioxide 31 mmol/L (21-32); Chloride 104 mmol/L (98-107); Creatinine Clr Calc Pharmacy 65.4 ml/min; Est GFR (African American) 92.8 ml/min; Est GFR (Non-African American) 80.1 ml/min; Globulin 2.7 gm/dl (2.5-4.0); Glucose 68 mg/dl (70-99(Fasting)); Sodium 139 mmol/L (136-145); Total Protein 7.2 gm/dl (6.0-8.3)
[2023-01-28 10:07] LABS: INR 1.1 (0.9-1.1); Partial Thromboplastin Ratio 1.1; Partial Thromboplastin Time 30.8 Seconds (21.0-31.0); Prothrombin Time 11.6 Seconds (9.0-12.0)
[2023-01-28 10:11] LABS: Troponin I High Sensitivity < 2.3 pg/ml (0-14)
[2023-01-28] MEDS ORDERED: PANTOprazole 40 MG in SYRINGE 0 ML IV ONE (10:16)
[2023-01-28] MEDS ORDERED: POLYETHYLENE (MIRALAX) 17 GM PACK PO PRN (10:16)
[2023-01-28] MEDS ORDERED: MAGNESIUM HYDROXIDE SUSP 30 ML UDC PO PRN (10:16)
[2023-01-28] MEDS ORDERED: ACETAMINOPHEN 325 MG TAB PO PRN (10:16)
[2023-01-28] MEDS ORDERED: ALUMINUM/MAGNESIUM SUSP 30 ML UDC PO PRN (10:16)
--- NOTE | 2023-01-28 10:16 | CT Scan Report ---
CT angio chest dissec wo/w con HISTORY: 57 years-old Female chest pain and stroke symptoms acute chest pain COMPARISON: CT abdomen and pelvis 10/25/2022 TECHNIQUE: CTA of the chest was obtained both with and without the use of IV contrast. 3-D coronal an d sagittal maps were obtained and submitted for review. A dose lowering technique was used consistent with the principals of GENE. FINDINGS: CTA: No intramural or mediastinal hematoma. The heart is mildly enlarged. Trace pericardial effusion. No t horacic aortic aneurysm or dissection. The ascending thoracic aorta at the level of the main pulmonar y artery measures 3.6 cm. The imaged great vessels appear patent. Unremarkable pulmonary artery. CT CHEST: Unremarkable thyroid. No lymphadenopathy. No pneumothorax, pleural effusion or pulmonary edema. 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 Add itional bronchial atresia of the basal left lower lobe. The right lung is clear. No acute upper abdominal abnormality. There are a few subcentimeter hypodensities of the liver which are too small to characterize, likely cysts. Splenomegaly. Probable right renal cysts. Partially imag ed mild left-sided hydronephrosis. On obstructing calculi left kidney measure up to 4 mm. Mild mid to distal esophageal wall thickening. IMPRESSION: 1. Left nephrolithiasis with partially imaged mild left-sided hydronephrosis. Correlation with renal ultrasound recommended along with KUB radiograph in order to exclude a ureteral calculus (specificall y, conducting a CT abdomen and pelvis at this time would not be advised secondary to the IV contrast administered which would obscure a ureteral calculus). 2. Unremarkable thoracic aorta. No pulmonary emboli identified. 3. 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 4. Mild mid to distal esophageal wall thickening may represent esophagitis. ACT 112: Negative or not required by law. The above report was generated using voice recognition software. It may contain grammatical, syntax o r spelling errors. Electronically signed by: Tony Saab M.D. 01/28/2023 10:15 AM
--- OUTSIDE RECORDS SUMMARY | 2023-01-28 10:21 | External Medical Summary ---
Author Name Unknown Address Unknown Organization [id number]:[facility] [place] - [address] [place] [address] Laboratory Report Ordering Provider Test Date Status QUIQUE CHAVEZ 01/12/2023 09:13:14 Final Deficient: <20 ng/mL
Ins ufficient: 20-29 ng/mL
Recommended/Optimum:30-50 ng/mL

Vitamin D intoxication is rare. If suspicious of Vitamin D toxicity, evaluation of serum Calcium and PTH is recommended. Observation Date Value Abnormality Reference (Units ) Status 25-OH Vitamin D total 01/12/2023 09:13:14 36 >19 (ng/mL) Final Performing Location [facility] - [address] [place] [address]
--- OUTSIDE RECORDS SUMMARY | 2023-01-28 10:21 | External Medical Summary | Summary of Care ---
Author Name Unknown Organization [facility] Address [address] [place] [address] Phone [phone] Care Team Providers Care Sergeant At Arms Name Role Phone Glendy RABAGO MD, Salvador Cuadra Primary Care Provider [phone] Encounter Details Date Type Department Care Team (Late st Contact Info) Description 01/18/2023 Orders Only Outcomes Research Department [address] [place], [place] [id number] Ashli Boyer CHRA MyCode Research Other*[id number] Allergies Active Allergy Reactions Criticality Noted Date Comments Azithromycin Hives High 07/03/2018 Dihydroergotamine High 07/03/2018 Other reaction(s): "THROAT SHUTS DOWN" Ergotamine 06/10/2001 DHE Ketorolac Tromethamine 01/08/2002 hives Penicillins 02/08/2009 rash Poison Floresita Extract Rash 06/12/2015 Azithromycin Hives 12/20/2008 documented as of this encounter (statuses as of 01/18/2023) Medications Medication Sig Dispensed Refills Start Date End Date Status ASPIRIN 81 MG PO CHEW Take by mouth. 0 02/01/2013 Active LYSINE HCL 500 MG PO TABS Take by mouth. 0 02/01/2013 Active SENNA S 8.6-50 MG PO TABS one tablet twice daily 0 02/01/2013 Active Multiple Vitamins-Minerals (MULTIVITAMIN GUMMIES ADULTS) CHEW Take by mouth. 0 Active fluticasone (FLONASE) 50 MCG/ACT nasal sprayIndications:Al lergic rhinitis Administer 1 Castell into nostril daily. 16 g 5 06/12/2015 Active vitamin c (ASCORBIC ACID) 500 MG Tablet Take 1 Tablet by mouth in the morning and 1 Tablet before bedtime. 0 01/18/2017 Active zinc gluconate 50 MG Tablet Take 1 Tablet by mouth in the morning. 0 01/19/2017 Active Folic Acid 400 MCG Tablet Take 1 Tablet by mouth in the morning. 0 01/19/2017 Active Selenium 200 MCG CAPS Take by mouth. 0 01/19/2017 Active Cholecalciferol 5000 units Capsule Take 1 Capsule by mouth in the morning. 0 02/13/2018 Active Ibuprofen-Famotidin e 800-26.6 MG Oral Tablet Take 1 Tab by mouth as needed. 0 Active SUMAtriptan Succinate 100 MG Oral TabletIndications:M igraine without aura and without status migrainosus, not intractable,Migrain e with aura and without status migrainosus, not intractable TAKE 1 TABLET AT ONSET OF MIGRAINE. MAY REPEAT IN 2 HOUR BUT NO MORE THAN 2 TABLETS IN 24 HOURS. 9 Tablet 5 02/09/2022 Active Ondansetron HCl 4 MG Oral TabletIndications:C ommon migraine with intractable migraine Take 1 Tablet (4 mg) by mouth every 6 hours as needed for Nausea. 30 Tablet 0 02/11/2022 Active Premarin 0.625 MG/GM Vaginal Cream (Estrogens Conjugated) Insert vaginally as directed twice weekly at bedtime(mon and thurs) 90 g 3 08/17/2022 Active Alendronate Sodium 70 MG Oral Tablet (Fosamax)Indication s:Other osteoporosis without current pathological fracture Take 1 tablet by mouth weekly with 8 oz of water 30 min before the first meal of the day, remain upright for 30 min after taking tablet 12 Tablet 2 08/17/2022 Active Meperidine HCl 100 MG/ML Injection Solution (Demerol)Indication s:Common migraine with intractable migraine Inject 100 mg into a large muscle every 4 hours as needed for Headache. 1 mL 0 12/15/2022 Active Emgality 120 MG/ML Subcutaneous Solution Prefilled Syringe ([facility]) INJECT 1 ML UNDER THE SKIN ONCE MONTHLY 1 mL 11 01/08/2023 01/08/2024 Active Magnesium 100 MG Oral Tablet Take 1 Tablet by mouth in the morning. 0 Active ALPRAZolam 1 MG Oral Tablet (Xanax)Indications: Situational anxiety Take one tablet 30 minutes prior to flight. 4 Tablet 0 01/12/2023 Active documented as of this encounter (statuses as of 01/18/2023) Active Problems Problem Noted Date Diagnosed Date Pre-diabetes 01/12/2022 Overview: Per Prediabetes protocol Other osteoporosis without current pathological fracture 01/03/2019 Controlled substance agreement signed 01/18/2017 Hyperlipidemia 06/12/2015 Overview: ICD-10 update of inactive term Calcium oxalate renal calculi 08/03/2011 Other constipation 08/03/2011 Hydronephrosis, left 06/07/2011 Abdominal pain, generalized 04/28/2007 Patent foramen ovale 02/23/2007 Dyspnea and respiratory abnormality 01/08/2006 Overview: 12/[address] Lung: IMPRESSION: 1. No pulmonary embolus. 2. Panlobular emphysema and bronchiectasis involving the entire left upper lobe and the anterior left lower lobe. 3. Two hypodensities in the dome of the liver are too small to characterize, but probably represent hepatic cysts. ICD-10 update of inactive term PANIC DISORDER 01/08/2006 Overview: Paxil rx ADVANCE DIRECTIVE INFORMATION 02/24/2005 Overview: No, Advance Directive brochure given to patient. Calculus of kidney 03/14/2003 COMMON MIGRAINE WITH INTRACTABLE MIGRAINE, SO ST ATED 01/17/2002 Neutropenia 01/09/2002 Overview: ICD-10 update of inactive term Constipation 01/09/2002 Overview: ICD-10 update of inactive term Vertigo 10/11/2001 Allergic rhinitis 08/31/2001 documented as of this encounter (statuses as of 01/18/2023) Resolved Problems Problem Noted Date Diagnosed Date Resolved Date Pyelonephritis 06/07/2011 02/11/2017 Occlusion of ureteral stent 06/07/2011 02/11/2017 Acute renal failure 06/07/2011 02/12/20 17 Sepsis 06/07/2011 02/11/2017 Generalized hyperhidrosis 11/20/2003 BACKACHE, S/P LITHOTRIPSY 04/25/2003 PARALYSIS, TEMPORARY NOCTURNAL 03/20/2003 07/23/2003 INTESTINAL INFECTION DUE TO CLOSTRIDIUM DIFFICILE 01/09/2003 02/23/2007 ACUTE SINUSITIS NOS 10/03/2002 07/23/19 04 OVARIAN CYST, LEFT, SUSPECTED RUPTURE 04/19/2002 07/23/2003 Dysuria 04/19/2002 07/23/2003 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07/22 Volume depletion 03/14/2002 07/23/2003 OVARIAN CYST, RUPTURED, ON LEFT 01/09/2002 07/23/2003 ACUTE CYSTITIS 01/09/2002 07/23/2003 Secondary thrombocytopenia 01/09/2002 1 04/14/2016 Overview: ICD-10 update of inactive term ABDOMINAL PAIN, LEFT LOWER QUADRANT 01/04/2002 07/23/2003 Nausea with vomiting 01/04/2002 004 Hematuria 01/04/2002 07/23/2003 Overview: ICD-10 update of inactive term ABN LIVER FUNCTION STUDY 11/14/2001 ACUTE STRESS 08/03/2001 07/23/2003 SINUS CONGESTION 07/19/2001 07/23/2003 documented as of this encounter (statuses as of 01/18/2023) Immunizations Name Administration Dates Next Due COVID-19 mRNA, LNP-s, No Pre serve, 2-Dose Series (Moderna) 03/27/2020,02/28/2020 COVID-19, mRNA, LNP-s, PF, B ooster, 100mcg/0.5mg (Moderna) 01/10/2021 DTWP - Dipth/Tet/Whole Cell Pertussis 04/01/2000 PPD 11/28/2009 Seasonal Influenza, Quadrivalent, No Preserve, I M 11/29/2022,12/18/2020 Seasonal Influenza, Split, IIV3, With Preserve, Inj 01/04/2013,11/28/2009 TD, Preservative Free 09/13/2019 TDAP (age 11 and older)(Adacel) 07/18/2009 documented as of this encounter Social History Tobacco Use Types Packs/Day Years Used Date Smoking Tobacco: Never Smokeless Tobacco: Never Alcohol Use Standard Drinks/Week Comments Yes 0 (1 standard drink = 0.6 oz pur e alcohol) occ PHQ-2 Answer Date Recorded PHQ Adult Total Score 0 07/12/2020 Hunger Vital Sign Answer Date Recorded Within the past 12 months, y ou worried that your food would run out before you got the money to buy more. Patient refused Within the past 12 months, t he food you bought just didn't last and you didn't have money to get more. Patient refused 05/2022 Sex and Gender Information Value Date Recorded Sex Assigned at Female 07/01/2018 11:19 AM EDT Gender Identity Female 07/01/2018 11:19 AM EDT Sexual Orientation Straight 07/01/2018 11 :19 AM EDT Job Start Date Occupation Industry Not on file Not on file Not on file documented as of this encounter Plan of Treatment Upcoming Encounters Date Type Department Care Team (Late st Contact Info) Description 03/24/2023 2:00 PM EST [place]iology, [address] [place] [address] 06/07/2023 9:00 AM EDT Office Visit Family Practice [facility] [address] [facility] [place] [place] [address] Salvador Pike III, MD [address] [facility] [place] [address] Scheduled Orders Name Type Priority Associated Diagnoses Orde r Schedule MYCODE SUBSEQUENT ADULT Lab Routine MyCode Research Other*[id number] Every 6 Months for 2 Occurrences starting 01/18/2023 until 02/07/2024 Scheduled Procedures Name Priority Associated Diagnoses Date/Ti me COLONOSCOPY FLEXIBLE PROXIMA L DIAGNOSTIC Recall Special screening for malignant neoplasms, colon Health Maintenance Due Date Last Done Comments Hepatitis B (1 of 3 - 3-dose series) 1964 HIV Screening 10/16/1979 Cologuard 2009 Fecal Occult Blood Test 2009 02/08/1997 Sigmoidoscopy 2009 Zoster Vaccines (1 of 2) 2014 Mammogram 12/24/2019 12/23/2018, 10/2017, 07/01/2016, Additional history exists DXA Scan 12/23/2020 12/23/2018 Depression Screening 07/12/2021 07/12/2020 COVID-19 Vaccine ( season) 2022 01/10/2021, 03/27/2020, 02/28/2020 HbA1c 01/13/2024 01/12/2023, 04/2021, 08/02/2009, Additional history exists Colonoscopy 12/21/2024 12/21/2014, 12/21/2014 Colorectal Cancer Screening 12/21/2024 Lipid Panel 01/13/2028 01/12/2023, 04/2021, 07/12/2020, Additional history exists DTaP,Tdap,and Td Vaccines (4 - Td or Tdap) 09/12/2029 09/13/2019, 07/18/2009, 04/01/2000 Influenza Vaccine (FLU shot) Completed 03/2022, 12/18/2020, 01/04/2013, Additional history exists VITAMIN D LEVEL ONCE IN A LIFETIME-USE SMARTSET# 70099 Completed 01/12/2023, 07/12/2020, 09/05/2018, Additional history exists GARDASIL-HPV IMMUNIZATION SERIES Aged Out No longer eligible based on patient's age to complete this topic MENINGOCOCCAL (MENACTRA/MENVEO) Aged Out No longer eligible based on patient's age to complete this topic Pneumococcal Vaccine: Pediatrics (0 to 5 Years) and At-Risk Patients (6 to 64 Years) Aged Out No longer eligible based on patient's age to complete this topic documented as of this encounter Medical Devices Not on filedocumented as of this encounter Visit Diagnoses Diagnosis MyCode Research Other*[id number] documented in this encounter Advance Directives Latest Code Status on File Code Status Date Activated Date Inactivated Comments Full Code 06/07/2011 11:19 PM 06/10/2011 3:09 PM This order reflects the patients wishes and were consensually agreed upon. Care Teams Sergeant At Arms Relationship Specialty Start Date End Date Salvador Pike III, MD [address] [facility] [place] [place] [address] PCP - General Family Medicine 12/25/20 documented as of this encounter
--- OUTSIDE RECORDS SUMMARY | 2023-01-28 10:21 | External Medical Summary ---
Author Name Unknown Address Unknown Organization [id number]:[facility] [place] [address] Laboratory Report Ordering Provider Test Date Status QUIQUE CHAVEZ 01/12/2023 09:13:14 Final Observation Date Value Abnormality Reference (Units ) Status WBC, Total 01/12/2023 09:13:14 3.52 Below low normal 4. 00-10.80 (K/uL) Final RBC 01/12/2023 09:13:14 4.83 3.85-5.15 (M/uL) Final Hemoglobin 01/12/2023 09:13:14 14.4 12.0-15.3 (g/dL) Final HCT 01/12/2023 09:13:14 44.3 36.0-45.2 (%) Final MCV 01/12/2023 09:13:14 91.7 81.5-97.5 (fL) Final MCH 01/12/2023 09:13:14 29.8 27.0-34.0 (pg) Final MCHC 01/12/2023 09:13:14 32.5 32.0-36.0 (g/dL) Final RDW 01/12/2023 09:13:14 12.8 11.5-15.5 (%) Final Platelets 01/12/2023 09:13:14 175 140-400 (K /uL) Final MPV 01/12/2023 09:13:14 9.7 6.6-11.1 ( fL) Final Performing Location [facility] [place] [place] [address]
--- OUTSIDE RECORDS SUMMARY | 2023-01-28 10:21 | External Medical Summary ---
Author Name Unknown Address Unknown Organization K01:[facility]ORY [facility] [place] - [address] [place] [address] Laboratory Report Ordering Provider Test Date Status QUIQUE CHAVEZ 01/12/2023 09:13:14 Final Observation Date Value Abnormality Reference (Units ) Status Thyroperoxidase Ab [Units/volume] in Serum or Plasma by Immunoassay 01/12/2023 09:13:14 134.6 Above high normal <34.0 (IU/mL) Final Thyroglobulin Ab 01/12/2023 09:13:14 16.6 <115.0 (IU/mL) Final Performing Location [facility]ORY [facility] [place] - [address] [place] [address]
--- OUTSIDE RECORDS SUMMARY | 2023-01-28 10:21 | External Medical Summary ---
Author Name Unknown Address Unknown Organization [id number]:[facility] [place] [address] [place] [address] Laboratory Report Ordering Provider Test Date Status QUIQUE CHAVEZ 01/12/2023 09:13:14 Final Observation Date Value Abnormality Reference (Units ) Status Triglyceride 01/12/2023 09:13:14 83 <=174 ( mg/dL) Final Triglyceride Reference Range s (mg/dL):
<150 Acceptable
150-174 Borderline high
175-499 High
>=500 Very high Cholesterol 01/12/2023 09:13:14 254 Above high normal <200 (mg/dL) Final Total Cholesterol Reference Ranges (mg/dL):
<200 Desirable
200-239 Borderline high
>=240 High HDL 01/12/2023 09:13:14 62 >49 (mg/dL ) Final HDL Cholesterol Reference Ra nges (mg/dL):
>=60 High (Desirable)
<50 Low (Undesirable) For Females
<40 Low (Undesirable) For Males NON-HDL CHOLESTEROL 01/12/2023 09:13:14 192 Above high normal <=159 (mg/dL) Final Non-HDL Cholesterol Referenc e Range (mg/dL):
<100 Target level for high risk ASCVD patient
<130 Optimal for general population
130-159 Near optimal for general population
160-189 Borderline High
190-219 High
>=220 Very High LDL, (calculated) 01/12/2023 09:13:14 175 Above high n ormal <=129 (mg/dL) Final LDL Cholesterol Reference Ra nges (mg/dL):
<70 Target level for high risk ASCVD patient
<100 Optimal for general population
100-129 Near optimal for general population
130-159 Borderline high
160-189 High
>=190 Very high Performing Location [facility] [place] - [address] [facility] [address]
--- OUTSIDE RECORDS SUMMARY | 2023-01-28 10:21 | External Medical Summary ---
Author Name Unknown Address Unknown Organization K01:[facility] [place] - [address] [place] [address] Laboratory Report Ordering Provider Test Date Status QUIQUE CHAVEZ 01/12/2023 09:13:14 Final Observation Date Value Abnormality Reference (Units ) Status HbA1C 01/12/2023 09:13:14 5.4 4.0-5.6 (% ) Final The use of HbA1c to monitor glycemic status is based on normal hemoglobin and HbA composition. This test should not be used in patients with abnormal hemoglobin that affects the half life of the red blood cell or the in vivo glycation rates. Glucose, estimated average 01/12/2023 09:13:14 108 <126 (mg/dL) Final Performing Location [facility] [address] [facility] [address]
--- OUTSIDE RECORDS SUMMARY | 2023-01-28 10:21 | External Medical Summary ---
Author Name Unknown Address Unknown Organization K01:[facility] [place] - [address] [place] [address] Laboratory Report Ordering Provider Test Date Status NIDIA NGUYEN 01/12/2023 09:13:14 Final Observation Date Value Abnormality Reference (Units ) Status MYCODE SPECIMEN-SST 01/12/2023 09:13:14 Freezing of extracted DNA, whole blood and/or serum. Final Performing Location LAB[facility]AT[facility] - [address] [place] [address]
--- OUTSIDE RECORDS SUMMARY | 2023-01-28 10:21 | External Medical Summary | Summary of Care ---
Author Name Unknown Organization [facility] Address [address] [place] [address] Phone [phone] Care Team Providers Care Concert Manager Name Role Phone Glendy RABAGO MD, Salvador Cuadra Primary Care Provider [phone] Reason for Visit * Reason Comments Outpatient Testing Encounter Details Date Type Department Care Team (Late st Contact Info) Description 01/12/2023 9:20 AM EST Laboratory Laboratory [facility] [address] [place] [id number] [facility] [address] [facility] [place] [address] [address] Other*[id number]; Pre-diabetes; Bone pain; Hyperlipidemia, unspecified hyperlipidemia type; Hair loss; Situational anxiety; Insomnia, unspecified type; Neutropenia, unspecified type (HCC); Need for hepatitis C screening test; History of vitamin D deficiency Allergies Active Allergy Reactions Criticality Noted Date Comments Azithromycin Hives High 07/03/2018 Dihydroergotamine High 07/03/2018 Other reaction(s): "THROAT SHUTS DOWN" Ergotamine 06/10/2001 DHE Ketorolac Tromethamine 01/08/2002 hives Penicillins 02/08/2009 rash Poison Floresita Extract Rash 06/12/2015 Azithromycin Hives 12/20/2008 documented as of this encounter (statuses as of 01/12/2023) Medications Medication Sig Dispensed Refills Start Date [...] MCG/ACT nasal sprayIndications:Al lergic rhinitis Administer 1 Ronceverte into nostril daily. 16 g 5 06/12/2015 [...] Emgality 120 MG/ML Subcutaneous Solution Prefilled Syringe (Galcanezumab-[facility]) INJECT 1 ML UNDER THE SKIN ONCE MONTHLY 1 mL 01/08/2023 01/08/2024 Active Magnesium 100 MG Oral Tablet Take 1 Tablet by mouth in the morning. 0 Active documented as of this encounter (statuses as of 01/12/2023) Active Problems Problem Noted Date Diagnosed Date [...] as of this encounter (statuses as of 01/12/2023) Resolved Problems Problem Noted Date Diagnosed Date [...] as of this encounter (statuses as of 01/12/2023) Immunizations Name Administration Dates Next Due COVID-19 [...] Description 03/24/2023 2:00 PM EST Imaging Radiology, [place] [id number] [facility] [place] [address] 06/07/2023 9:00 AM EDT Office Visit Family Practice [facility] [address] [facility] [place] [address] Salvador Pike III, MD 200 [facility] [place] [address] Pending Results Name Type Priority Associated Diagnoses Date /Time MYCODE INITIAL ADULT Lab Routine MyCode Research Other*[id number] 01/12/2023 9:13 AM EST HEMOGLOBIN A1C Lab Routine Pre-diabetes 01/12/2023 9:13 AM EST COMPREHENSIVE METABOLIC PANEL Lab Routine Pre-diabetes Bone pain 01/12/2023 9:13 AM EST LIPID PANEL WITH DIRECT LDL IF TG IS HIGH Lab Routine Hyperlipidemia, unspecified hyperlipidemia type 01/12/2023 9:13 AM EST TSH WITH FREE T4 IF INDICATED Lab Routine Hair loss Situational anxiety Insomnia, unspecified type 01/12/2023 9:13 AM EST THYROID ANTIBODY AND TPO ANTIBODY Lab Routine Hair loss Situational anxiety 01/12/2023 9:13 AM EST PTH Lab Routine Bone pain 01/12/2023 9:13 AM EST HEPATITIS C ANTIBODY SCREEN WITH PROGRESSION TO HEPATITIS C RNA QUANTITATIVE Lab Routine Need for hepatitis C screening test 01/12/2023 9:13 AM EST 25-HYDROXY VITAMIN D Lab Routine History of vitamin D deficiency 01/12/2023 9:13 AM EST MYCODE INITIAL ADULT-PINK Lab Routine [employer] Other*[id number] 01/12/2023 9:13 AM EST MYCODE SST1 Lab Routine [employer] Other*[id number] 01/12/2023 9:13 AM EST MYCODE SST2 Lab Routine [employer] Other*[id number] 01/12/2023 9:13 AM EST HEPATITIS C ANTIBODY Lab Routine Need for hepatitis C screening test 01/12/2023 9:13 AM EST HEPATITIS C RNA ADD ON Lab Routine Need for hepatitis C screening test 01/12/2023 9:13 AM EST Scheduled Procedures Name Priority Associated Diagnoses Date/Ti me COLONOSCOPY FLEXIBLE PROXIMA L DIAGNOSTIC Recall Special screening for malignant neoplasms, colon Health Maintenance Due Date Last Done Comments Hepatitis B (1 of 3 - 3-dose series) 1964 HIV Screening 10/16/1979 Hepatitis C Screening 1982 Cologuard 2009 Fecal Occult Blood Test 2009 02/08/1997 Sigmoidoscopy 2009 Zoster Vaccines (1 of 2) 2014 Mammogram 12/24/2019 12/23/2018, 050 10/2017, 07/01/2016, Additional history exists DXA Scan 12/23/2020 12/23/2018 Depression Screening 07/12/2021 07/12/2020 COVID-19 Vaccine ( season) 2022 01/10/2021, 03/27/2020, 02/28/2020 HbA1c 12/31/2022 12/31/2021, 06/0 05/2009, 05/01/2005, Additional history exists Colonoscopy 12/21/2024 12/21/2014, 12/21/2014 Colorectal Cancer Screening 12/21/2024 Lipid Panel 12/31/2026 12/31/2021, 06/29, 12/21/2014, Additional history exists DTaP,Tdap,and Td Vaccines (4 - Td or Tdap) 09/12/2029 09/13/2019, 07/18/2009, 04/01/2000 VITAMIN D LEVEL ONCE IN A LIFETIME-USE SMARTSET# [id number] Completed 07/12/2020, 09/05/2018, 08/28/2014, Additional history exists Influenza Vaccine (FLU shot) Completed 03/2022, 12/18/2020, 01/04/2013, Additional history exists GARDASIL-HPV IMMUNIZATION SERIES Aged [...] Not on filedocumented as of this encounter Procedures Procedure Name Priority Date/Time Associated Diagnosis Comments DIFFERENTIAL, AUTOMATED Routine 01/12/2023 9:13 AM EST Neutropenia, unspecified type (HCC) CBC Routine 01/12/2023 9:13 AM EST Neutropenia, unspecified type (HCC) CBC Routine 01/12/2023 9:13 AM EST Neutropenia, unspecified type (HCC) documented in this encounter Results * (ABNORMAL) DIFFERENTIAL, AUTOMATED (01/12/2023 9:13 AM EST) WBC 3.52(L) 4.00 - 10.80 K/uL 01/12/2023 9:24 AM EST [facility] Neutrophils % 54.1 40.0 - 75.0 % 01/12/2023 9:24 AM EST [facility] Lymphocytes % 27.8 18.0 - 42.0 % 01/12/2023 9:24 AM EST [facility] Monocytes % 13.9(H) 1.0 - 11.0 % 01/12/2023 9:24 AM EST [facility] 56 Eosinophils % 2.8 0.0 - 6.0 % 01/12/2023 9:24 AM [facility] 56 Basophils % 1.4 0.0 - 2.0 % 01/12/2023 9:24 AM [facility] 56 Absolute Neutrophils 1.90 1.80 - 7.70 K/uL 01/12/2023 9:24 AM [facility] 56 Absolute Lymphocytes 0.98(L) 1.00 - 4.80 K/ul 01/12/2023 9:24 AM [facility] 56 Absolute Monocytes 0.49 0.00 - 1.10 K/uL 01/12/2023 9:24 AM [facility] Absolute Eosinophils 0.10 0.00 - 0.70 K/uL 01/12/2023 9:24 AM [facility] Absolute Basophils 0.05 0.00 - 0.20 K/uL 01/12/2023 9:24 AM [facility] Blood Venous blood specimen / Unknown Venipuncture / Unknown 01/12/2023 9:13 AM EST 01/12/2023 9:14 AM EST Elisabeth Dooley PA-C LAB BLOOD ORD ERABLES [facility] [address] [place] [address] * (ABNORMAL) CBC (01/12/2023 9:13 AM EST) WBC 3.52(L) 4.00 - 10.80 K/uL 01/12/2023 9:24 AM [facility] 56 RBC 4.83 3.85 - 5.15 M/uL 01/12/2023 9:24 AM [facility] HGB 14.4 12.0 - 15.3 g/dL 01/12/2023 9:24 AM [facility] 56 HCT 44.3 36.0 - 45.2 % 01/12/2023 9:24 AM [facility] 56 MCV 91.7 81.5 - 97.5 fL 01/12/2023 9:24 AM EST [address] MCH 29.8 27.0 - 34.0 pg 01/12/2023 9:[address] MCHC 32.5 32.0 - 36.0 g/dL 01/12/2023 9:24 AM EST [address] RDW 12.8 11.5 - 15.5 % 01/12/2023 9:[address] PLT 175 140 - 400 K/uL 01/12/2023 9:[address] MPV 9.7 6.6 - 11.1 fL 01/12/2023 9:[address] Blood Venous blood specimen / Unknown Venipuncture / Unknown 01/12/2023 9:13 AM EST 01/12/2023 9:14 AM EST Elisabeth Dooley PA-C LAB BLOOD ORD ERABLES [address] [facility] [address] documented in this encounter Visit Diagnoses Diagnosis My[facility] Research Other*[id number] Pre-diabetes Other abnormal glucose Bone pain Disorder of bone and cartilage, unspecified Hyperlipidemia, unspecified hyperlipidemia type Hair loss Alopecia, unspecified Situational anxiety Other anxiety states Insomnia, unspecified type Neutropenia, unspecified type (HCC) Need for hepatitis C screening test Special screening examination for other specified viral diseases History of vitamin D deficiency Personal history of nutritional deficiency documented in this encounter Advance Directives Latest Code Status on File Code Status Date Activated Date Inactivated Comments Full Code 06/07/2011 11:19 PM 06/10/2011 3:09 PM This order reflects the patients wishes and were consensually agreed upon. Care Teams Concert Manager Relationship Specialty Start Date End Date Salvador Pike III, MD 200 [facility] [place] [address] PCP - General Family Medicine 12/25/20 documented as of this encounter
--- OUTSIDE RECORDS SUMMARY | 2023-01-28 10:21 | External Medical Summary ---
Author Name Unknown Address Unknown Organization [id number]:[facility] [place] [address] [place] [address] Laboratory Report Ordering Provider Test Date Status QUIQUE CHAVEZ 01/12/2023 09:13:14 Final Observation Date Value Abnormality Reference (Units ) Status TSH 01/12/2023 09:13:14 3.08 0.27-4.20 (uIU/mL) Final Performing Location [facility] - [address] [place] [address]
--- OUTSIDE RECORDS SUMMARY | 2023-01-28 10:21 | External Medical Summary ---
Author Name Unknown Address Unknown Organization K09:[facility] - [address] [place] [address] Laboratory Report Ordering Provider Test Date Status QUIQUE CHAVEZ 01/12/2023 09:13:14 Final Observation Date Value Abnormality Reference (Units ) Status BUN 01/12/2023 09:13:14 17 6-20 (mg/dL) Final Creatinine 01/12/2023 09:13:14 1.0 0.5-1.0 (mg/dL) Final Glomerular filtration rate/1.73 sq M.predicted [Volume Rate/Area] in Serum, Plasma or Blood by Creatinine-based formula (CKD-EPI) 01/12/2023 09:13:14 69 >=60 (mL/min) Final eGFR is calculated based on the CKD-EPI 2020 equation SODIUM 01/12/2023 09:13:14 143 135-146 (m mol/L) Final Potassium 01/12/2023 09:13:14 5.0 3.5-5.1 (m mol/L) Final Cl 01/12/2023 09:13:14 104 98-107 (mm ol/L) Final CO2 01/12/2023 09:13:14 28 22-32 (mmo l/L) Final Anion gap 01/12/2023 09:13:14 11 7-15 (mmol /L) Final Glucose 01/12/2023 09:13:14 102 70-120 (mg /dL) Final Albumin 01/12/2023 09:13:14 5.0 3.8-5.0 (g /dL) Final AST (Aspartate aminotransferase) 01/12/2023 09:13:14 24 10-35 (U/L) Final Alk Phos 01/12/2023 09:13:14 63 35-130 (U/ L) Final Bilirubin, Total 01/12/2023 09:13:14 0.3 <=1 .2 (mg/dL) Final Calcium 01/12/2023 09:13:14 9.9 8.4-10.2 ( mg/dL) Final Protein 01/12/2023 09:13:14 7.4 6.0-8.3 (g /dL) Final ALT (Alanine aminotransferase) 01/12/2023 09:13:14 18 10-35 (U/L) Final Performing Location [facility] - [address] [place] [address]
--- OUTSIDE RECORDS SUMMARY | 2023-01-28 10:21 | External Medical Summary ---
Author Name Unknown Address Unknown Organization K01:[facility] - [address] [place] [address] Laboratory Report Ordering Provider Test Date Status QUIQUE CHAVEZ 01/12/2023 09:13:14 Final Observation Date Value Abnormality Reference (Units ) Status Magnesium 01/12/2023 09:13:14 2.4 1.5-2.6 (m g/dL) Final Performing Location [facility] - [address] [place] [address]
--- OUTSIDE RECORDS SUMMARY | 2023-01-28 10:21 | External Medical Summary ---
Author Name Unknown Address Unknown Organization K01:[facility] - [address] [place] [address] Laboratory Report Ordering Provider Test Date Status QUIQUE CHAVEZ 01/12/2023 09:13:14 Final Observation Date Value Abnormality Reference (Units ) Status Hep C Ab 01/12/2023 09:13:14 Negative Negative Final Further HCV quantitative scott ting not performed per protocol. Performing Location [facility] - [address] [place] [address]
--- OUTSIDE RECORDS SUMMARY | 2023-01-28 10:21 | External Medical Summary ---
Author Name Unknown Address Unknown Organization K09:[facility] [place] [address] Laboratory Report Ordering Provider Test Date Status QUIQUE CHAVEZ 01/12/2023 09:13:14 Final Observation Date Value Abnormality Reference (Units ) Status SYNC LEUKOCYTES IN BLOOD BY AUTOMATED COUNT 01/12/2023 09:13:14 3.52 Below low normal 4.00-10.80 (K/uL) Final Segs 01/12/2023 09:13:14 54.1 40.0-75.0 (%) Final Lymphs % 01/12/2023 09:13:14 27.8 18.0-42.0 (%) Final Monos 01/12/2023 09:13:14 13.9 Above high normal 1.0-11.0 (%) Final Eosinophils 01/12/2023 09:13:14 2.8 0.0-6.0 (%) Final Basos 01/12/2023 09:13:14 1.4 0.0-2.0 (%) Final Absolute Segs 01/12/2023 09:13:14 1.90 1.80-7.70 (K/uL) Final Lymphs, absolute 01/12/2023 09:13:14 0.98 Below low normal 1.00-4.80 (K/ul) Final Monos, Abs 01/12/2023 09:13:14 0.49 0.00-1.10 (K/uL) Final Eos, Abs 01/12/2023 09:13:14 0.10 0.00-0.70 (K/uL) Final Basos, Abs 01/12/2023 09:13:14 0.05 0.00-0.20 (K/uL) Final Performing Location [facility] [place] [address]
--- OUTSIDE RECORDS SUMMARY | 2023-01-28 10:21 | External Medical Summary ---
Author Name Unknown Address Unknown Organization K01:[facility] [place] [address] [place] [address] Laboratory Report Ordering Provider Test Date Status NIDIA NGUYEN 01/12/2023 09:13:14 Final Observation Date Value Abnormality Reference (Units ) Status MYCODE SPECIMEN-SST 01/12/2023 09:13:14 Freezing of extracted DNA, whole blood and/or serum. Final Performing Location [facility] - [address] [place] [address]
--- OUTSIDE RECORDS SUMMARY | 2023-01-28 10:21 | External Medical Summary ---
Author Name Unknown Address Unknown Organization K01[facility] [place] [address] [place] [address] Laboratory Report Ordering Provider Test Date Status QUIQUE CHAVEZ 01/12/2023 09:13:14 Final Observation Date Value Abnormality Reference (Units ) Status Parathyrin.intact [Mass/volume] in Serum or Plasma 01/12/2023 09:13:14 44 15-65 (pg/mL) Final Performing Location [facility] [place] [address] [place] [address]
--- OUTSIDE RECORDS SUMMARY | 2023-01-28 10:21 | External Medical Summary ---
Author Name Unknown Address Unknown Organization K01:[facility] [place] [address] [place] [address] Laboratory Report Ordering Provider Test Date Status NIDIA NGUYEN 01/12/2023 09:13:14 Final Observation Date Value Abnormality Reference (Units ) Status Green PhosphorODE SPECIMEN-LAV 01/12/2023 09:13:14 Freezing of extracted DNA, whole blood and/or serum. Final Performing Location [facility] - [address] [facility] [address]
--- OUTSIDE RECORDS SUMMARY | 2023-01-28 10:21 | External Medical Summary | Summary of Care ---
Author Name Unknown Organization [facility] Address [address] [place] [address] Phone [phone] Care Team Providers Care Uniform Designer Name Role Phone Glendy RABAGO MD, Salvador Cuadra Primary Care Provider [phone] Reason for Visit * Reason Comments Acute Hair loss, bone pain Encounter Details Date Type Department Care Team (Latest Contact Info) Description 01/12/2023 8:20 AM EST Office Visit [facility] [address] [facility] [place] [address] Elisabeth Dooley PA-C [address] [facility] [place] [address] Hair loss*; Situational anxiety; Memory loss; Bone pain; Insomnia, unspecified type; Hyperlipidemia, unspecified hyperlipidemia type; Pre-diabetes; Neutropenia, unspecified type (HCC); History of kidney stones; Need for hepatitis C screening test; History of vitamin D deficiency; Body mass index (BMI) 21.0-21.9, adult Allergies Active Allergy Reactions Criticality Noted Date [...] 0 Active fluticasone (FLONASE) 50 MCG/ACT nasal sprayIndications:A llergic rhinitis Administer 1 [place] into nostril daily. 16 g 5 06/12/2015 [...] mouth in the morning. 0 02/13/2018 Active Ibuprofen-Famotidi ne 800-26.6 MG Oral Tablet Take 1 Tab by mouth as needed. 0 Active SUMAtriptan Succinate 100 MG Oral TabletIndications: Migraine without aura and without status migrainosus, not intractable,Migrai ne with aura and without status migrainosus, not intractable TAKE 1 TABLET AT ONSET OF MIGRAINE. MAY REPEAT IN 2 HOUR BUT NO MORE THAN 2 TABLETS IN 24 HOURS. 9 Tablet 5 02/09/2022 Active Ondansetron HCl 4 MG Oral TabletIndications: Common migraine with intractable migraine Take 1 Tablet (4 mg) by mouth every 6 hours as needed for Nausea. 30 Tablet 0 02/11/2022 Active Premarin 0.625 MG/GM Vaginal Cream (Estrogens Conjugated) Insert vaginally as directed twice weekly at bedtime(mon and thurs) 90 g 3 08/17/2022 Active Alendronate Sodium 70 MG Oral Tablet (Fosamax)Indicatio ns:Other osteoporosis without current pathological fracture Take 1 tablet by mouth weekly with 8 oz of water 30 min before the first meal of the day, remain upright for 30 min after taking tablet 12 Tablet 2 08/17/2022 Active Meperidine HCl 100 MG/ML Injection Solution (Demerol)Indicatio ns:Common migraine with intractable migraine Inject 100 mg into a large muscle every 4 hours as needed for Headache. 1 mL 0 12/15/2022 Active Emgality 120 MG/ML Subcutaneous Solution Prefilled Syringe (Galcanezumab-gnlm ) INJECT 1 ML UNDER THE SKIN ONCE MONTHLY 1 mL 11 01/08/2023 4 Active Magnesium 100 MG Oral Tablet Take 1 Tablet by mouth in the morning. 0 Active ALPRAZolam 1 MG Oral Tablet (Xanax)Indications :Situational anxiety Take one tablet 30 minutes prior to flight. 4 Tablet 0 01/12/2023 Active Emgality 120 MG/ML Subcutaneous Solution Auto-injector (Galcanezumab-gnlm )Indications:Migra ine without aura Take 2 injections under skin the 1 st months for loading dose 2 mL 0 01/01/2021 3 Discontinued Emgality 120 MG/ML Subcutaneous Solution Auto-injector (Galcanezumab-gnlm )Indications:Migra ine without aura Inject 1 ml under skin once monthly 1 mL 11 01/09/2022 3 Discontinued Meperidine HCl 100 MG/ML Injection Solution (Demerol)Indicatio ns:Migraine variant Inject 100 mg into a large muscle every 4 hours as needed for Migraine. 1 mL 0 08/20/2022 3 Discontinued documented as of this encounter (statuses as [...] on file documented as of this encounter Last Filed Vital Signs Vital Sign Reading Time Taken Comments Blood Pressure 108/70 01/12/2023 8:32 AM EST Pulse 83 01/12/2023 8:32 AM EST Temperature 36.6 C (97.8 F) 01/12/2023 8:32 AM ES T Respiratory Rate 16 01/12/2023 8:32 AM EST Oxygen Saturation 98% 01/12/2023 8:32 AM EST Inhaled Oxygen Concentration - - Weight 57.2 kg (126 lb 1.9 oz) 01/12/2023 8:32 A M EST Height 162.6 cm (5' 4") 01/12/2023 8:32 AM EST Body Mass Index 21.65 01/12/2023 8:32 AM EST documented in this encounter Progress Notes * Elisabeth Dooley PA-C - 01/12/2023 10:01 AM EST Subjective America Bo is a 57 year old female that presents for Acute (Hair loss, bone pain/) 57 y/o female presents c/o bone pain, forgetfulness, hair loss, and increasing anxiety. Pt states her symptoms have been building over the last couple months and have been worsening significantly. She reports she eats a fairly healthy diet, minimal caffeine (one cup of coffee in the AM) and still struggles with anxiety and trouble sleeping. 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 She states she just hasn't been feelinglike herself recently. Is concerned her thyroid might be off. Has a hx of neutropenia and vitamin Ddef. States when her vit D is low her bones tend to hurt. Is taking supplement daily. She denies recent illness, fevers, chills, chest pain, Sob, nausea, vomiting, diarrhea. Allergies and medicationsreviewed. Objective BP 108/70 | Pulse 83 | Temp 36.6 C (97.8 F) (Tympanic) | Resp 16 | Ht 1.626 m (5' 4") | Wt 57.2kg (126 lb 1.9 oz) | LMP 11/09/2017 | SpO2 98% | BMI 21.65 kg/m | BSA 1.61 m Body mass index is 21.65 kg/m. BP Readings from Last 3 Encounters: 01/12/23 108/70 11/13/22 116/78 06/01/22 116/80 Wt Readings from Last 3 Encounters: 01/12/23 57.2 kg (126 lb 1.9 oz) 11/13/22 58 kg (127 lb 14.4 oz) 06/01/22 64.8 kg (142 lb 12.8 oz) Physical Exam Vitals and nursing note reviewed. Constitutional: General: She is not in acute distress. Appearance: Normal appearance. HENT: Head: Normocephalic and atraumatic. Eyes: General: No scleral icterus. Extraocular Movements: Extraocular movements intact. Conjunctiva/sclera: Conjunctivae normal. Pupils: Pupils are equal, round, and reactive to light. Neck: Comments: No thyroid enlargement appreciated. Cardiovascular: Rate and Rhythm: Normal rate and regular rhythm. Heart sounds: No murmur heard. No friction rub. No gallop. Pulmonary: Effort: Pulmonary effort is normal. Breath sounds: Normal breath sounds. No stridor. No wheezing, rhonchi or rales. Musculoskeletal: Cervical back: Neck supple. Skin: General: Skin is warm and dry. Findings: No rash. Neurological: General: No focal deficit present. Mental Status: She is alert and oriented to person, place, and time. Psychiatric: Mood and Affect: Mood normal. Behavior: Behavior normal. Assessment and plan 1. Hair loss - TSH WITH FREE T4 IF INDICATED; Future - THYROID ANTIBODY AND TPO ANTIBODY; Future 2. Situational anxiety - TSH WITH FREE T4 IF INDICATED; Future - THYROID ANTIBODY AND TPO ANTIBODY; Future - ALPRAZolam 1 MG Oral Tablet (Xanax); Take one tablet 30 minutes prior to flight. Dispense: 4 Tablet; Refill: 0 3. Memory loss 4. Bone pain - COMPREHENSIVE METABOLIC PANEL; Future - PTH; Future 5. Insomnia, unspecified type - TSH WITH FREE T4 IF INDICATED; Future 6. Hyperlipidemia, unspecified hyperlipidemia type - LIPID PANEL WITH DIRECT LDL IF TG IS HIGH; Future 7. Pre-diabetes - HEMOGLOBIN A1C; Future - COMPREHENSIVE METABOLIC PANEL; Future 8. Neutropenia, unspecified type (HCC) - CBC WITH WBC DIFFERENTIAL; Future 9. History of kidney stones 10. Need for hepatitis C screening test - HEPATITIS C ANTIBODY SCREEN WITH PROGRESSION TO HEPATITIS C RNA QUANTITATIVE; Future 11. History of vitamin D deficiency - 25-HYDROXY VITAMIN D; Future 12. Body mass index (BMI) 21.0-21.9, adult Her clinical picture looks like she might have hyperparathyroidism. She has a history of kidney stones, vitamin-D deficiency, and with her increasing anxiety and memory issues, this could all be explained by hyperparathyroidism caused by a parathyroid adenoma. We will get lab work today, and followup with the results. She is also due for routine check of her A1c, cholesterol and this is ordered today. Total time today including reviewing chart before the visit, pertinent labs, imaging reports, face to face time, and documentation time was 35 minutes. The above was discussed and understanding was expressed. Elisabeth Dooley PA-C documented in this encounter Nursing Notes * Elenita Bernstein LPN - 01/12/2023 8:31 AM EST Patient presents today to discuss getting labs done. She is having hair loss, vision changes, forgetfulness, anxiety, not sleeping well and bone pain. She really wanted to have her thyroid checked cortney sure that isn't what is causing. documented in this encounter Plan of Treatment Upcoming Encounters Date Type Department Care Team (Late st Contact Info) Description 03/24/2023 2:00 PM EST Imaging Radiology, [address] [place] [address] 06/07/2023 9:00 AM EDT Office Visit [facility] [address] [place] [address] Salvador Pike III, MD [address] [place] [address] Pending Results Name Type Priority Associated Diagnoses Date /Time HEMOGLOBIN A1C Lab Routine Pre-diabetes 01/12/2023 9:13 [...] vitamin D deficiency 01/12/2023 9:13 AM EST Scheduled Orders Name Type Priority Associated Diagnoses Orde r Schedule HEMOGLOBIN A1C Lab Routine Pre-diabetes Expected: 01/12/2023 (Approximate), Expires: 01/12/2024 COMPREHENSIVE METABOLIC PANEL Lab Routine Pre-diabetes Bone pain Expected: 01/12/2023 (Approximate), Expires: 01/12/2024 LIPID PANEL WITH DIRECT LDL IF TG IS HIGH Lab Routine Hyperlipidemia, unspecified hyperlipidemia type Expected: 01/12/2023, Expires: 01/13/2024 TSH WITH FREE T4 IF INDICATED Lab Routine Hair loss Situational anxiety Insomnia, unspecified type Expected: 01/12/2023 (Approximate), Expires: 01/12/2024 THYROID ANTIBODY AND TPO ANTIBODY Lab Routine Hair loss Situational anxiety Expected: 01/12/2023 (Approximate), Expires: 01/12/2024 PTH Lab Routine Bone pain Expected: 01/12/2023 (Approximate), Expires: 01/12/2024 HEPATITIS C ANTIBODY SCREEN WITH PROGRESSION TO HEPATITIS C RNA QUANTITATIVE Lab Routine Need for hepatitis C screening test Expected: 01/12/2023 (Approximate), Expires: 01/12/2024 25-HYDROXY VITAMIN D Lab Routine History of vitamin D deficiency Expected: 01/12/2023 (Approximate), Expires: 01/12/2024 Scheduled Procedures Name Priority Associated Diagnoses Date/Ti [...] Depression Screening 07/12/2021 07/12/2020 COVID-19 Vaccine ( - 2022- season) 2022 01/10/2021, 03/27/2020, 02/28/2020 HbA1c 12/31/2022 12/31/2021, 05/2009, 05/01/2005, Additional history exists Colonoscopy 12/21/2024 12/21/2014, 12/21/2014 Colorectal Cancer Screening 12/21/2024 Lipid Panel 12/31/2026 12/31/2021, 06/29, 12/21/2014, Additional history exists DTaP,Tdap,and Td Vaccines (4 - Td or Tdap) 09/12/2029 09/13/2019, 07/18/2009, 04/01/2000 VITAMIN D LEVEL ONCE IN A LIFETIME-USE SMARTSET# [id number] Completed 07/12/2020, 09/05/2018, 08/28/2014, Additional history exists [...] as of this encounter Visit Diagnoses Diagnosis Hair loss- Primary Alopecia, unspecified Situational anxiety Other anxiety states Memory loss Bone pain Disorder of bone and cartilage, unspecified Insomnia, unspecified type Hyperlipidemia, unspecified hyperlipidemia type Pre-diabetes Other abnormal glucose Neutropenia, unspecified type (HCC) History of kidney stones Personal history of urinary calculi Need for hepatitis C screening test Special screening examination for other specified viral diseases History of vitamin D deficiency Personal history of nutritional deficiency Body mass index (BMI) 21.0-21.9, adult documented in this encounter Advance Directives Latest Code Status on File Code Status Date Activated Date Inactivated Comments Full Code 06/07/2011 11:19 PM 06/10/2011 3:09 PM This order reflects the patients wishes and were consensually agreed upon. Care Teams Uniform Designer Relationship Specialty Start Date End Date Salvador Pike III, MD [address] [facility] [place] [address] PCP - General Family Medicine 12/25/20 documented as of this encounter
--- OUTSIDE RECORDS SUMMARY | 2023-01-28 10:22 | External Medical Summary | Summary of Care ---
Author Name Unknown Organization [facility] Address [address] [place] [address] Phone [phone] Care Team Providers Care Restaurant Shift Leader Name Role Phone Glendy RABAGO MD, Salvador Cuadra Primary Care Provider [phone] Reason for Referral * Evaluate & Treat - Unlimited Visits (Within 30 days (routine)) - Pending Review Specialty Diagnoses / Procedures Referred By Amador hamilton Referred To Contact Urology Diagnoses Acute cystitis with hematuria Petr Valenzuela PA-C [address] [place] [address] Referral ID Status Reason Start Date Expiration Date Visits Requested Visits Authorized [id number] Pending Review Specialty Services Required 11/13/[phone] Question Answer Referral Priority Within 30 days (routine) What is the patient being referred for? Urinary Concerns Comments Recurrent UTI. Reason for Visit * Reason Comments Urinary Tract Infection Symptoms Ongoing x's 1 month. Intermittent treatment. Painful, frequent, odor continues. Encounter Details Date Type Department Care Team Description 11/13/2022 Office Visit General Internal Medicine [place] [address] [place] [address] Petr Valenzuela PA-C [address] [place] [address] Dysuria*; Urinary frequency; Acute cystitis with hematuria Allergies Active Allergy Reactions Severity Noted Date Comments Azithromycin Hives High 07/03/2018 Dihydroergotamine High 07/03/2018 Other reaction(s): "THROAT SHUTS DOWN" Ergotamine 06/10/2001 DHE Ketorolac Tromethamine 01/08/2002 hives Penicillins 02/08/2009 rash Poison Floresita Extract Rash 06/12/2015 Azithromycin Hives 12/20/2008 documented as of this encounter (statuses as of 11/13/2022) Medications Medication Sig Dispensed Refills Start Date End Date Status ASPIRIN 81 MG PO CHEW One pill by mouth once a day with food 0 02/01/2013 Active LYSINE HCL 500 MG PO TABS 1 TABLET DAILY 0 02/01/2013 Active SENNA S 8.6-50 MG PO TABS one tablet twice daily 0 02/01/2013 Active Multiple Vitamins-Minerals (MULTIVITAMIN GUMMIES ADULTS) CHEW Take by mouth. 0 Active fluticasone (FLONASE) 50 MCG/ACT nasal sprayIndications:Al lergic rhinitis Administer 1 [place] into nostril daily. 16 g 5 06/12/2015 [...] Tab by mouth as needed. 0 Active Emgality 120 MG/ML Subcutaneous Solution Auto-injector (Galcanezumab-gnlm) Indications:Migrain e without aura Take 2 injections under skin the 1 st months for loading dose 2 mL 0 01/01/2021 Active Emgality 120 MG/ML Subcutaneous Solution Auto-injector (Galcanezumab-gnlm) Indications:Migrain e without aura Inject 1 ml under skin once monthly 1 mL 11 01/09/2022 Active Additional Information Patient not taking.Reported on 11/13/2022 SUMAtriptan Succinate 100 MG Oral TabletIndications:M igraine [...] for Nausea. 30 Tablet 0 02/11/2022 Active Galcanezumab-gnlm 120 MG/ML Subcutaneous Solution Prefilled Syringe (Emgality) INJECT 1 ML UNDER THE SKIN ONCE MONTHLY 1 mL 11 01/09/2022 01/09/2023 Active Additional Information Patient not taking.Reported on 11/13/2022 Premarin 0.625 MG/GM Vaginal Cream (Estrogens Conjugated) [...] Meperidine HCl 100 MG/ML Injection Solution (Demerol)Indication s:Migraine variant Inject 100 mg into a large muscle every 4 hours as needed for Migraine. 1 mL 0 08/20/2022 Active Meperidine HCl 100 MG/ML Injection Solution (Demerol)Indication s:Common migraine with intractable migraine Inject 100 mg into a large muscle every 4 hours as needed for Headache. 1 mL 0 10/05/2022 Active Nitrofurantoin Monohyd Macro 100 MG Oral Capsule (Macrobid)Indicatio ns:Acute cystitis with hematuria Take 1 Capsule by mouth in the morning and 1 Capsule before bedtime. Do all this for 7 days. With food until gone. 14 Capsule 0 11/13/2022 11/20/2022 Active documented as of this encounter (statuses as of 11/13/2022) Active Problems Problem Noted Date Prediabetes 01/12/2022 Overview: Per Prediabetes protocol Other osteoporosis without current patho logical fracture 01/03/2019 Controlled substance agreement signed Hyperlipidemia with target LDL less than 160 06/12/2015 Overview: ICD-10 update of inactive term Calcium oxalate renal calculi 08/03/2011 Other constipation 08/03/2011 Hydronephrosis, left 06/07/2011 Abdominal pain, generalized 04/28/2007 Patent foramen ovale 02/23/2007 Dyspnea and respiratory abnormality 12/30 Overview: 12/[address] Lung: IMPRESSION: [...] of kidney 03/14/2003 COMMON MIGRAINE WITH INTRACTABLE MIGRAIN E, SO STATED 01/17/2002 Neutropenia 01/09/2002 Overview: ICD-10 update of inactive term Constipation 01/09/2002 Overview: ICD-10 update of inactive term Vertigo 10/11/2001 Allergic rhinitis 08/31/2001 documented as of this encounter (statuses as of 11/13/2022) Resolved Problems Problem Noted Date Resolved Date Pyelonephritis 06/07/2011 02/11/2017 Occlusion of ureteral stent 06/07/201101/29 Acute renal failure 06/07/2011 02/11/2017 Sepsis 06/07/2011 02/11/2017 Generalized hyperhidrosis 11/20/20032006 BACKACHE, S/P LITHOTRIPSY 04/25/20032006 PARALYSIS, TEMPORARY NOCTURNAL 03/20/2003 0 07/23/2003 INTESTINAL INFECTION DUE TO CLOSTRIDIUM DIFFICIL E 01/09/2003 02/23/2007 ACUTE SINUSITIS NOS 10/03/2002 07/23/2003 OVARIAN CYST, LEFT, SUSPECTED RUPTURE 04/19/2002 07/23/2003 Dysuria 04/19/2002 07/23/2003 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 4 Volume depletion 03/14/2002 07/23/2003 OVARIAN CYST, RUPTURED, ON LEFT 01/09/2002 07/23/2003 ACUTE CYSTITIS 01/09/2002 07/23/2003 Secondary thrombocytopenia 01/09/200202/11 Overview: ICD-10 update of inactive term ABDOMINAL PAIN, LEFT LOWER QUADRANT 01/04/2002 07/23/2003 Nausea with vomiting 01/04/2002 07/23/2003 Hematuria 01/04/2002 07/23/2003 Overview: ICD-10 update of inactive term ABN LIVER FUNCTION STUDY 11/14/2001 007 ACUTE STRESS 08/03/2001 07/23/2003 SINUS CONGESTION 07/19/2001 07/23/2003 documented as of this encounter (statuses as of 11/13/2022) Immunizations Name Administration Dates Next Due COVID-19 mRNA, LNP-s, No Pre serve, 2-Dose Series (Moderna) 03/27/2020,02/28/2020 COVID-19, mRNA, LNP-s, PF, B ooster, 100mcg/0.5mg (Moderna) 01/10/2021 DTWP - Dipth/Tet/Whole Cell Pertussis 04/01/2000 PPD 11/28/2009 Seasonal Influenza, Quadrivalent, No Preserve, I M 12/18/2020 Seasonal Influenza, Split, IIV3, With Preserve, Inj 01/04/2013,11/28/2009 TD, Preservative Free 09/13/2019 TDAP (age 11 and older)(Adacel) 07/18/2009 documented as of this encounter Social History Tobacco Use Types Packs/Day Years Used Date Smoking Tobacco: Never Smokeless Tobacco: Never Tobacco Cessation:Counseling Given: Not Answered Alcohol Use Standard Drinks/Week Comments Yes 0 (1 standard drink = 0.6 oz pur e alcohol) occ Sex Assigned at Date Recorded Female 07/01/2018 11:19 AM EDT Job Start Date Occupation Industry Not on file Not on file Not on file documented as of this encounter Last Filed Vital Signs Vital Sign Reading Time Taken Comments Blood Pressure 116/78 11/13/2022 9:24 AM EDT Pulse 84 11/13/2022 9:24 AM EDT Temperature 36.1 C (97 F) 11/13/2022 9:24 AM EDT Respiratory Rate - - Oxygen Saturation 98% 11/13/2022 9:24 AM EDT Inhaled Oxygen Concentration - - Weight 58 kg (127 lb 14.4 oz) 11/13/2022 9:24 AM EDT Height 162.6 cm (5' 4") 11/13/2022 9:24 AM EDT Body Mass Index 21.95 11/13/2022 9:24 AM EDT documented in this encounter Progress Notes * Petr Valenzuela PA-C - 11/13/2022 9:20 AM EDT Subjective: America Bo is a 57 year old female. Chief Complaint Patient presents with Urinary Tract Infection Symptoms Ongoing x's 1 month. Intermittent treatment. Painful, frequent, odor continues. HPI: 57 y/o female with hx of kidney stones and hydronephrosis seen today with complaint of UTI symptoms abotu 6 weeks ago. Postitive urine dip at work. PCP called in bactrim for three days. Resolvedfor about 4 days. Increase in frequency, odor. Then placed on course of Cipro. Similar experience. Then went camping where blood started then stopped urinating. ER work up noted UTI with possible pyelonephritis treated, but not seen on abdominal imaging with Rocephin and keflex. Once again resolved with recurrence. with same symptoms. PMH: Patient Active Problem List Diagnosis Code Allergic rhinitis J30.9 Vertigo R42 Neutropenia (HCC) D70.9 Constipation K59.00 COMMON MIGRAINE WITH INTRACTABLE MIGRAINE, SO STATED G43.019 Calculus of kidney N20.0 ADVANCE DIRECTIVE INFORMATION Dyspnea and respiratory abnormality R06.00, R06.89 PANIC DISORDER F41.0 Patent foramen ovale Q21.12 Abdominal pain, generalized R10.84 Hydronephrosis, left N13.30 Calcium oxalate renal calculi N20.0 Other constipation K59.09 Hyperlipidemia with target LDL less than 160 E78.5 Controlled substance agreement signed Z79.899 Other osteoporosis without current pathological fracture M81.8 Prediabetes R73.03 Current Outpatient Medications Medication Sig Dispense Refill SENNA S 8.6-50 MG PO TABS one tablet twice daily Multiple Vitamins-Minerals (MULTIVITAMIN GUMMIES ADULTS) CHEW Take by mouth. fluticasone (FLONASE) 50 MCG/ACT nasal spray Administer 1 [place] into nostril daily. 16 g 5 vitamin c (ASCORBIC ACID) 500 MG Tablet Take 1 Tablet by mouth in the morning and 1 Tablet before bedtime. zinc gluconate 50 MG Tablet Take 1 Tablet by mouth in the morning. Folic Acid 400 MCG Tablet Take 1 Tablet by mouth in the morning. Selenium 200 MCG CAPS Take by mouth. Cholecalciferol 5000 units Capsule Take 1 Capsule by mouth in the morning. Ibuprofen-Famotidine 800-26.6 MG Oral Tablet Take 1 Tab by mouth as needed. Emgality 120 MG/ML Subcutaneous Solution Auto-injector (Galcanezumab-gnlm) Take 2 injections under skin the 1 st months for loading dose 2 mL 0 SUMAtriptan Succinate 100 MG Oral Tablet TAKE 1 TABLET AT ONSET OF MIGRAINE. MAY REPEAT IN 2 HOUR BUT NO MORE THAN 2 TABLETS IN 24 HOURS. 9 Tablet 5 Ondansetron HCl 4 MG Oral Tablet Take 1 Tablet (4 mg) by mouth every 6 hours as needed for Nausea. 30 Tablet 0 Premarin 0.625 MG/GM Vaginal Cream (Estrogens Conjugated) Insert vaginally as directed twice weeklyat bedtime(mon and th) 90 g 3 Alendronate Sodium 70 MG Oral Tablet (Fosamax) Take 1 tablet by mouth weekly with 8 oz of water 30 min before the first meal of the day, remain upright for 30 min after taking tablet 12 Tablet 2 Meperidine HCl 100 MG/ML Injection Solution (Demerol) Inject 100 mg into a large muscle every 4 hours as needed for Headache. 1 mL 0 Nitrofurantoin Monohyd Macro 100 MG Oral Capsule (Macrobid) Take 1 Capsule by mouth in the morning and 1 Capsule before bedtime. Do all this for 7 days. With food until gone. 14 Capsule 0 ASPIRIN 81 MG PO CHEW One pill by mouth once a day with food (Patient not taking: Reported on 11/13/2022) LYSINE HCL 500 MG PO TABS 1 TABLET DAILY (Patient not taking: Reported on 11/13/2022) Emgality 120 MG/ML Subcutaneous Solution Auto-injector (Galcanezumab-gnlm) Inject 1 ml under skin once monthly (Patient not taking: Reported on 11/13/2022) 1 mL 11 Galcanezumab-gnlm 120 MG/ML Subcutaneous Solution Prefilled Syringe (Emgality) INJECT 1 ML UNDER THE SKIN ONCE MONTHLY (Patient not taking: Reported on 11/13/2022) 1 mL 11 Meperidine HCl 100 MG/ML Injection Solution (Demerol) Inject 100 mg into a large muscle every 4 hours as needed for Migraine. 1 mL 0 No current facility-administered medications for this visit. Review of patient's allergies indicates: Allergen Reactions Azithromycin Hives Dihydroergotamine Other reaction(s): "THROAT SHUTS DOWN" Ergotamine DHE Ketorolac Tromethamine hives Penicillins rash Poison Floresita Extract [Poison Floresita Extract] Rash Zithromax [Azithromycin] Hives All other review of systems reviewed and negative other than mentioned in HPI. Objective: BP 116/78 | Pulse 84 | Temp 36.1 C (97 F) | Ht 1.626 m (5' 4") | Wt 58 kg (127 lb 14.4 oz) | LMP 11/09/2017 | SpO2 98% | BMI 21.95 kg/m | BSA 1.62 m 04/2022 urine culture with barakat sensitive e coli. 10/25/2022 urine culture with pansensitive e. Coli Physical Exam Constitutional: General: She is not in acute distress. Appearance: Normal appearance. She is normal weight. She is not ill-appearing or toxic-appearing. HENT: Head: Normocephalic and atraumatic. Eyes: Extraocular Movements: Extraocular movements intact. Conjunctiva/sclera: Conjunctivae normal. Pupils: Pupils are equal, round, and reactive to light. Cardiovascular: Rate and Rhythm: Normal rate and regular rhythm. Heart sounds: Normal heart sounds. No murmur heard. No friction rub. No gallop. Pulmonary: Effort: Pulmonary effort is normal. Breath sounds: Normal breath sounds. No wheezing, rhonchi or rales. Abdominal: General: Bowel sounds are normal. There is no distension. Palpations: Abdomen is soft. There is no mass. Tenderness: There is no abdominal tenderness. There is no right CVA tenderness, left CVA tenderness, guarding or rebound. Neurological: Mental Status: She is alert. ASSESSMENT: Dysuria (Primary) - URINALYSIS, POINT OF CARE (ENTER/EDIT) Urinary frequency - URINALYSIS, POINT OF CARE (ENTER/EDIT) Acute cystitis with hematuria - Nitrofurantoin Monohyd Macro 100 MG Oral Capsule (Macrobid); Take 1 Capsule by mouth in the morning and 1 Capsule before bedtime. Do all this for 7 days. With food until gone. - UROLOGY REFERRAL OP with similar symptoms. Possible reinfection from partner. Pansensitive on culture reort from ER on the . Will treat with Augmentin. Recommend partner be treated and refrain from sexual intercourse for 7-10 until symptoms resolved in both parties. Urology with recurrence. Follow Up: Return if symptoms worsen or fail to improve. Petr Valenzuela PA-C documented in this encounter Miscellaneous Notes * Result Encounter Note - Petr Valenzuela PA-C - 11/13/2022 10:10 AM EDT No blood on microscopy at [facility] documented in this encounter Plan of Treatment Upcoming Encounters Date Type Specialty Care Team Description 06/07/2023 Office Visit Family Medicine Glendy III, Salvador Cuadra MD [address] [place] [address] Scheduled Procedures Name Priority Associated Diagnoses Date/Ti me COLONOSCOPY FLEXIBLE PROXIMA L DIAGNOSTIC Recall Special screening for malignant neoplasms, colon Scheduled Referrals Name Type Priority Associated Diagnoses Orde r Schedule UROLOGY REFERRAL OP Referral Within 30 da ys (routine) Acute cystitis with hematuria Ordered: 11/13/2022 Health Maintenance Due Date Last Done Comments Hepatitis B (1 of 3 - 3-dose series) 1964 HIV Screening 10/16/1979 Hepatitis C Screening 1982 Cologuard 2009 Fecal Occult Blood Test 2009 02/08/1997 Sigmoidoscopy 2009 Zoster Vaccines (1 of 2) 2014 Mammogram 12/24/2019 12/23/2018, 05/0 10/2017, 07/01/2016, Additional history exists DXA Scan 12/23/2020 12/23/2018 COVID-19 Vaccine (4 - Moderna series) 03/07/2021 01/10/2021, 03/27/2020, 02/28/2020 Depression Screening 07/12/2021 07/12/2020 Influenza Vaccine (FLU shot) (#1) 2022 12/18/2020, 01/04/2013, 11/28/2009 HbA1c 12/31/2022 12/31/2021, 06/0 05/2009, 05/01/2005, Additional history exists Colonoscopy 12/21/2024 12/21/2014, 12/21/2014 Colorectal Cancer Screening 12/21/2024 Lipid Panel 12/31/2026 12/31/2021, 06/29, 12/21/2014, Additional history exists DTaP,Tdap,and Td Vaccines (4 - Td or Tdap) 09/12/2029 09/13/2019, 07/18/2009, 04/01/2000 VITAMIN D LEVEL ONCE IN A LIFETIME-USE SMARTSET# [id number] Completed 07/12/2020, 09/05/2018, 08/28/2014, Additional history exists GARDASIL-HPV IMMUNIZATION SERIES Aged [...] Procedure Name Priority Date/Time Associated Diagnosis Comments URINALYSIS, POINT OF CARE (ENTER/EDIT) Routine 11/13/2022 Urinary frequency Dysuria documented in this encounter Results * (ABNORMAL) URINALYSIS, POINT OF CARE (ENTER/EDIT) (11/13/2022) Color, Urine Dark Yellow Yellow or Light Yellow Clarity, Urine Slightly Cloudy Clear Glucose, Urine Negative Negative mg/dL Bilirubin, Urine Negative Negative Ketone, Urine Negative Negative mg/dL Specific [place], Urine 1.025 1.003 - 1.030 Blood, Urine Trace-lysed( A) Negative pH, Urine 5.5 5.0 - 7.5 units Protein, Urine Negative Negative mg/dL Urobilinogen, Urine 0.2 0.2 - 1.0 mg/dL Nitrite, Urine Positive(A) Negative Esterase, Urine Negative Negative Urine 11/13/2022 Petr Valenzuela PA-C LAB POINT OF CARE TEST ENTER/EDIT ORDERABLES documented in this encounter Visit Diagnoses Diagnosis Dysuria- Primary Urinary frequency Acute cystitis with hematuria Acute cystitis documented in this encounter Advance Directives Latest Code Status on File Code Status Date Activated Date Inactivated Comments Full Code 06/07/2011 11:19 PM 06/10/2011 3:09 PM This order reflects the patients wishes and were consensually agreed upon. Care Teams Restaurant Shift Leader Relationship Specialty Start Date End Date Salvador Pike III, MD [address] [place] [id number] PCP - General Family Medicine 12/25/20 documented as of this encounter
--- OUTSIDE RECORDS SUMMARY | 2023-01-28 10:22 | External Medical Summary | Summary of Care ---
Author Name Unknown Organization [facility] Address [address] [place] [address] Phone [phone] Care Team Providers Care Campaign Fundraiser Name Role Phone Glendy RABAGO MD, Salvador Cuadra Primary Care Provider [phone] Reason for Visit * Reason Onset Date Comments Health Maintenance 12/28/2022 Encounter Details Date Type Department Care Team (Late st Contact Info) Description 12/28/2022 Telephone Family Practice [facility] [address] [place] [address] Salvador Pike III, MD [address] [place] [address] Health Maintenance Allergies Active Allergy Reactions Criticality Noted Date Comments Azithromycin Hives High 07/03/2018 Dihydroergotamine High 07/03/2018 Other reaction(s): "THROAT SHUTS DOWN" Ergotamine 06/10/2001 DHE Ketorolac Tromethamine 01/08/2002 hives Penicillins 02/08/2009 rash Poison Floresita Extract Rash 06/12/2015 Azithromycin Hives 12/20/2008 documented as of this encounter (statuses as of 12/28/2022) Medications Medication Sig Dispensed Refills Start Date [...] MCG/ACT nasal sprayIndications:Al lergic rhinitis Administer 1 [place] into nostril daily. 16 g 5 06/12/2015 [...] SKIN ONCE MONTHLY 1 mL 11 01/09/2022 01/14/2023 Active Additional Information Patient not taking.Reported on [...] for Headache. 1 mL 0 12/15/2022 Active documented as of this encounter (statuses as of 12/28/2022) Active Problems Problem Noted Date Diagnosed Date Prediabetes 01/12/2022 Overview: Per Prediabetes protocol Other osteoporosis without current pathological fracture 01/03/2019 Controlled substance agreement signed 01/18/2017 Hyperlipidemia with target LDL less than 160 Overview: ICD-10 update of inactive term Calcium [...] as of this encounter (statuses as of 12/28/2022) Resolved Problems Problem Noted Date Diagnosed Date [...] as of this encounter (statuses as of 12/28/2022) Immunizations Name Administration Dates Next Due COVID-19 [...] = 0.6 oz pur e alcohol) occ Hunger Vital Sign Answer Date Recorded Within [...] on file documented as of this encounter Miscellaneous Notes * Telephone Encounter - Key Murray LPN - 12/28/2022 9:04 AM EDT Care Gaps Comprehensive Care Outreach Last Office/Telemedicine Visit: 06/01/2022 (in office), 12/26/2021 (telemedicine) Next Office Visit: 06/07/2023 Hemoglobin AIC Results: Lab Results Component Value Date/Time HEMOGLOBIN A1C - [facility] 5.4 08/02/2009 11:43 AM HEMOGLOBIN A1C - [facility] 5.7 05/01/2005 04:53 PM HEMOGLOBIN A1C - [facility] 5.3 07/26/2001 04:27 PM Reviewed Health Maintenance below: Health Maintenance Topic Date Due Hepatitis B (1 of 3 - 3-dose series) Never done HIV Screening Never done Hepatitis C Screening Never done Zoster Vaccines (1 of 2) Never done Mammogram 12/24/2019 DXA Scan 12/23/2020 Depression Screening 07/12/2021 Influenza Vaccine (FLU shot) (1) 10/30/2022 COVID-19 Vaccine ( season) 2022 HbA1c 12/31/2022 Mamm Dexa labs Care Gap Outreach Action Taken: Unable to reach won't ring through documented in this encounter Plan of Treatment Upcoming Encounters Date Type Department Care Team (Late st Contact Info) Description 06/07/2023 9:00 AM EDT Office Visit Family Practice [facility] [address] [place] [address] Salvador Pike III, MD [address] [place] [address] Scheduled Procedures Name Priority Associated Diagnoses Date/Ti [...] Vaccine ( season) 2022 01/10/2021, 03/27/2020, 02/28/2020 Influenza Vaccine (FLU shot) (#1) 2022 12/18/2020, 01/04/2013, 11/28/2009 HbA1c 12/31/2022 12/31/2021, 05/2009, 05/01/2005, Additional history exists Colonoscopy 12/21/2024 12/21/2014, 12/21/2014 Colorectal Cancer Screening 12/21/2024 Lipid Panel 12/31/2026 12/31/2021, 06/29, 12/21/2014, Additional history exists DTaP,Tdap,and Td Vaccines (4 - Td or Tdap) 09/12/2029 09/13/2019, 07/18/2009, 04/01/2000 VITAMIN D LEVEL ONCE IN A LIFETIME-USE SMARTSET# [id number] Completed 07/12/2020, 09/05/2018, 08/28/2014, Additional history exists [...] Not on filedocumented as of this encounter Advance Directives Latest Code Status on File Code Status Date Activated Date Inactivated Comments Full Code 06/07/2011 11:19 PM 06/10/2011 3:09 PM This order reflects the patients wishes and were consensually agreed upon. Care Teams Campaign Fundraiser Relationship Specialty Start Date End Date Salvador Pike III, MD [address] [place] [address] PCP - General Family Medicine 12/25/20 documented as of this encounter
--- OUTSIDE RECORDS SUMMARY | 2023-01-28 10:22 | External Medical Summary | Summary of Care ---
Author Name Unknown Organization [facility] Address [address] [place] [address] Phone [phone] Care Team Providers Care Core Shaper Top Name Role Phone Glendy RABAGO MD, Denzel Cuadra Primary Care Provider [phone] Reason for Visit * Reason Onset Date Comments Medication Refill 12/14/2022 Encounter Details Date Type Department Care Team Description 12/14/[address] [facility] [address] [facility] [place] [address] Monserrat Cabrera DO [address] [place] [address] Common migraine with intractable migraine Allergies Active Allergy Reactions Severity Noted Date Comments Azithromycin Hives High 07/03/2018 Dihydroergotamine High 07/03/2018 Other reaction(s): "THROAT SHUTS DOWN" Ergotamine 06/10/2001 DHE Ketorolac Tromethamine 01/08/2002 hives Penicillins 02/08/2009 rash Poison [place] Extract Rash 06/12/2015 Azithromycin Hives 12/20/2008 documented as of this encounter (statuses as of 12/15/2022) Medications Medication Sig Dispensed Refills Start Date [...] MCG/ACT nasal sprayIndications:A llergic rhinitis Administer 1 [place] into nostril daily. 16 g 5 06/12/2015 [...] on 11/13/2022 SUMAtriptan Succinate 100 MG Oral TabletIndications: Migraine [...] SKIN ONCE MONTHLY 1 mL 11 01/09/2022 3 Active Additional Information Patient not taking.Reported on [...] for Headache. 1 mL 0 12/15/2022 Active Meperidine HCl 100 MG/ML Injection Solution (Demerol)Indicatio ns:Common migraine with intractable migraine Inject 100 mg into a large muscle every 4 hours as needed for Headache. 1 mL 0 10/05/2022 3 Discontinue d(Refill) documented as of this encounter (statuses as of 12/15/2022) Active Problems Problem Noted Date Prediabetes 01/12/2022 [...] as of this encounter (statuses as of 12/15/2022) Resolved Problems Problem Noted Date Resolved Date [...] as of this encounter (statuses as of 12/15/2022) Immunizations Name Administration Dates Next Due COVID-19 [...] encounter Miscellaneous Notes * Telephone Encounter - Denzel Mcnair III, MD - 12/15/2022 12:12 PM EDTSigned Prescriptions: Disp Refills Meperidine HCl 100 MG/ML Injection Solutio*1 mL 0 Sig: Inject 100 mg into a large muscle every 4 hours as needed for Headache.Authorizing Provider: DENZEL MCNAIR III * Telephone Encounter - Luli Stephenson [facility] - 12/15/2022 12:10 PM EDTPending Prescriptions: Disp Refills Meperidine HCl 100 MG/ML Injection Solutio*1 mL 0 Sig: Inject 100 mg into a large muscle every 4 hours as needed for Headache. * Telephone Encounter - Luli Stephenson RPh - 12/15/2022 12:06 PM EDT I have reviewed the patients controlled substance dispensing history in the Prescription Drug Monitoring Program in compliance with the [facility] regulations before prescribing a controlled substance. PDMP checked on 12/15/2022. Pending Prescriptions: Disp Refills Meperidine HCl 100 MG/ML Injection Soluti*1 mL 0 Sig: Inject 100 mg into a large muscle every 4 hours as needed for Headache. Last Visit: 06/01/2022 (in office), 12/26/2021 (telemedicine) Next Visit: 06/07/2023 Date medication was last filled: 10/05/22 Date medication is due for refill: 10/06/22 Pharmacy: [id number] Is this request for a controlled substance? Yes and Urine Drug Screen Not completed Toxicology results: No results found. However, due to the size of the patient record, not all encounters were searched.Please check Results Review for a complete set of results. Please approve if appropriate. Thank you, Luli Stephenson, PharmD Clinical Pharmacist [facility] ([facility]) 12/15/22 12:06 PM [phone] documented in this encounter Plan of Treatment Upcoming Encounters Date Type Specialty Care Team Description 06/07/2023 Office Visit Family Medicine Glendy III, Denzel Cuadra MD [address] [place] [address], [place] [address] Scheduled Procedures Name Priority Associated Diagnoses Date/Ti me COLONOSCOPY FLEXIBLE PROXIMA L DIAGNOSTIC Recall Special screening for malignant neoplasms, colon Health Maintenance Due Date Last Done Comments Hepatitis B (1 of 3 - 3-dose series) 1964 HIV Screening 10/16/1979 Hepatitis C Screening 1982 Cologuard 2009 Fecal Occult Blood Test 2009 02/08/1997 Sigmoidoscopy 2009 Zoster Vaccines (1 of 2) 2014 Mammogram 12/24/2019 12/23/2018, 0510/2017, 07/01/2016, Additional history exists DXA Scan 12/23/2020 [...] D LEVEL ONCE IN A LIFETIME-USE SMARTSET# 31053 Completed 07/12/2020, 09/05/2018, 08/28/2014, Additional history exists [...] as of this encounter Visit Diagnoses Diagnosis Common migraine with intractable migraine Migraine without aura, with intractable migraine, so stated, without mention of status migrainosus documented in this encounter Advance Directives Latest Code Status on File Code Status Date Activated Date Inactivated Comments Full Code 06/07/2011 11:19 PM 06/10/2011 3:09 PM This order reflects the patients wishes and were consensually agreed upon. Care Teams Core Shaper Top Relationship Specialty Start Date End Date Denzel Mcnair III, MD [address] [place] [phone] PCP - General Family Medicine 12/25/20 documented as of this encounter
--- OUTSIDE RECORDS SUMMARY | 2023-01-28 10:22 | External Medical Summary | Summary of Care ---
Author Name Unknown Organization [facility] Address [address] [place] [address] Phone [phone] Care Team Providers Care Reception Specialist Name Role Phone Glendy RABAGO MD, Salvador Cuadra Primary Care Provider [phone] Reason for Visit * Reason Onset Date Comments Medication Refill 10/05/2022 Encounter Details Date Type Department Care Team Description 10/05/2022 Refill Family Practice [facility] [address] [place] [place] [address] Salvador Pike III, MD [address] [place] [address] Common migraine with intractable migraine Allergies Active Allergy Reactions Severity Noted Date Comments Azithromycin Hives High 07/03/2018 Dihydroergotamine High 07/03/2018 Other reaction(s): "THROAT SHUTS DOWN" Ergotamine 06/10/2001 DHE Ketorolac Tromethamine 01/08/2002 hives Penicillins 02/08/2009 rash Poison [place] Extract Rash 06/12/2015 Azithromycin Hives 12/20/2008 documented as of this encounter (statuses as of 10/05/2022) Medications Medication Sig Dispensed Refills Start Date [...] MCG/ACT nasal sprayIndications:A llergic rhinitis Administer 1 [place] into nostril daily. 16 g 5 06/12/2015 Active vitamin c (ASCORBIC ACID) 500 MG Tablet Take 1 Tab by mouth 2 times a day. 0 01/18/2017 Active zinc gluconate 50 MG Tablet Take 1 Tab by mouth daily. 0 01/19/2017 Active Folic Acid 400 MCG Tablet Take 1 Tab by mouth daily. 0 01/19/2017 Active Selenium 200 MCG CAPS Take by mouth. 0 01/19/2017 Active Cholecalciferol 5000 units Capsule Take 1 Cap by mouth daily. 0 02/13/2018 Active Ibuprofen-Famotidi ne (DUEXIS) 800-26.6 MG TABS Take 1 Tab by mouth as needed. 0 Active Emgality 120 MG/ML Subcutaneous Solution Auto-injector (Galcanezumab-gnlm )Indications:Migra ine without aura Take 2 injections under skin the 1 st months for loading dose 2 mL 0 01/01/2021 Active Additional Information Patient not taking.Reported on 09/19/2021 Emgality 120 MG/ML Subcutaneous Solution Auto-injector (Galcanezumab-gnlm )Indications:Migra ine without aura Inject 1 ml under skin once monthly 1 mL 11 01/09/2022 Active SUMAtriptan Succinate 100 MG Oral TabletIndications: [...] MONTHLY 1 mL 11 01/09/2022 3 Active Premarin 0.625 MG/GM Vaginal Cream (Estrogens Conjugated) Insert vaginally as directed twice weekly at bedtime(mon and th) 90 g 3 08/17/2022 Active Alendronate Sodium [...] for Headache. 1 mL 0 10/05/2022 Active Meperidine HCl 100 MG/ML Injection Solution (Demerol)Indicatio ns:Common migraine with intractable migraine Inject 100 mg into a large muscle every 4 hours as needed for Headache. 1 mL 0 09/30/2022 3 Discontinue d(Refill) documented as of this encounter (statuses as of 10/05/2022) Active Problems Problem Noted Date Prediabetes 01/12/2022 [...] as of this encounter (statuses as of 10/05/2022) Resolved Problems Problem Noted Date Resolved Date [...] as of this encounter (statuses as of 10/05/2022) Immunizations Name Administration Dates Next Due COVID-19 mRNA, LNP-s, No Pre serve, 2-Dose Series (Moderna) 03/27/2020,02/28/2020 Covid-19 Mrna, Lnp-s, No Preserve, Booster (Mode rna) 01/10/2021 DTWP - Dipth/Tet/Whole Cell Pertussis 04/01/2000 [...] encounter Miscellaneous Notes * Telephone Encounter - Sabra Cabrera DO - 10/05/2022 5:05 PM EDTSigned Prescriptions: Disp Refills Meperidine HCl 100 MG/ML Injection Solutio*1 mL 0 Sig: Inject 100 mg into a large muscle every 4 hours as needed for Headache. Authorizing Provider: SABRA CABRERA * Telephone Encounter - Elenita Bernstein LPN - 10/05/2022 2:33 PM EDT Pending Prescriptions: Disp Refills Meperidine HCl 100 MG/ML Injection Solutio*1 mL 0 Sig: Inject 100 mg into a large muscle every 4 hours as needed for Headache. * Telephone Encounter - Genesis Barragan Thormaynorjason - 10/05/2022 1:20 PM EDT Prior Auth Follow up Did you pend patient's preferred pharmacy and medication before forwarding?yes Pharmacy: [id number] Pending Prescriptions: Disp Refills Meperidine HCl 100 MG/ML Injection Soluti*1 mL 0 Sig: Inject 100 mg into a large muscle every 4 hours as needed for Headache. Last Visit: 06/01/2022 (in office), 12/26/2021 (telemedicine) Next Visit: 06/07/2023 If no future appointments scheduled, and last appointment is greater than a year ago, please schedule patient for a follow-up appointment Last date the medication was ordered: 09/30/22 Is this request for a controlled substance?No Urine Drug Screen:No results found. However, due to the size of the patient record, not all encounters were searched. Please check Results Review for a complete set of results. Patient Phone Numbers Labs: Lab Results Component Value Date/Time CREAT 0.89 12/31/2021 12:00 AM CREAT 0.9 12/21/2014 11:42 AM POTASSIUM 4.5 12/31/2021 12:00 AM POTASSIUM 4.5 12/21/2014 11:42 AM TSH 2.75 12/31/2021 12:00 AM TSH 2.80 12/21/2014 11:42 AM LDLCALC 161 (A) 12/31/2021 12:00 AM LDLCALC 175 (H) 12/21/2014 11:42 AM LDLDIRECT NOT APPLICABLE 12/21/2014 11:42 AM ALT 22 07/12/2020 12:00 AM ALT 9 (L) 12/21/2014 11:42 AM HGBA1C 5.8 12/31/2021 12:00 AM HGBA1C 5.4 08/02/2009 11:43 AM documented in this encounter Plan of Treatment Upcoming Encounters Date Type Specialty Care Team Description 06/07/2023 Office Visit Family Medicine Placer III, Salvador Cuadra MD [address] [place] [address] Scheduled Procedures Name Priority Associated Diagnoses Date/Ti [...] Moderna series) 03/07/2021 01/10/2021, 03/27/2020, 02/28/2020 Depression Screening, Annual for Pts 12 and Over 07/12/2021 07/12/2020 Influenza Vaccine (FLU shot) (#1) 2022 12/18/2020, 01/04/2013, 11/28/2009 HbA1c 12/31/2022 12/31/2021, 0605/2009, 05/01/2005, Additional history exists Colonoscopy 12/21/2024 12/21/2014, 12/21/2014 Colorectal Cancer Screening 12/21/2024 Lipid Panel 12/31/2026 12/31/2021, 06/29, 12/21/2014, Additional history exists DTaP,Tdap,and Td Vaccines (4 - Td or Tdap) 09/12/2029 09/13/2019, 07/18/2009, 04/01/2000 VITAMIN D LEVEL ONCE IN A LIFETIME-USE SMARTSET# [id number] Completed 07/12/2020, 09/05/2018, 08/28/2014, Additional history exists [...] and were consensually agreed upon. Care Teams Reception Specialist Relationship Specialty Start Date End Date Salvador Pike III, MD [address] [place] [id number] PCP - General Family Medicine 12/25/20 documented as of this encounter
--- OUTSIDE RECORDS SUMMARY | 2023-01-28 10:22 | External Medical Summary | Summary of Care ---
Author Name Unknown Organization [facility] Address [address] [place] [address] Phone [phone] Care Team Providers Care Telecommunications Switch Technician Name Role Phone Glendy RABAGO MD, Salvador Cuadra Primary Care Provider [phone] Encounter Details Date Type Department Care Team Description 08/31/2022 Orders Only Outcomes Research Department [address] [place], [place] [id number] Ashli Boyer CHRA [facility] Research Other*[id number] Allergies Active Allergy Reactions Severity Noted Date Comments Azithromycin Hives High 07/03/2018 Dihydroergotamine High 07/03/2018 Other reaction(s): "THROAT SHUTS DOWN" Ergotamine 06/10/2001 DHE Ketorolac Tromethamine 01/08/2002 hives Penicillins 02/08/2009 rash Poison [place] Extract Rash 06/12/2015 Azithromycin Hives 12/20/2008 documented as of this encounter (statuses as of 08/31/2022) Medications Medication Sig Dispensed Refills Start Date [...] MCG/ACT nasal sprayIndications:Al lergic rhinitis Administer 1 [place] into nostril daily. 16 g 5 06/12/2015 [...] Cap by mouth daily. 0 02/13/2018 Active Ibuprofen-Famotidin e (DUEXIS) 800-26.6 MG TABS Take 1 Tab by mouth as needed. 0 Active Emgality 120 MG/ML Subcutaneous Solution Auto-injector (Galcanezumab-gnlm) Indications:Migrain e without aura Take 2 injections under skin the 1 st months for loading dose 2 mL 0 01/01/2021 Active Additional Information Patient not taking.Reported on 09/19/2021 Emgality 120 MG/ML Subcutaneous Solution Auto-injector (Galcanezumab-gnlm) Indications:Migrain e without aura Inject 1 ml under skin once monthly 1 mL 11 01/09/2022 Active SUMAtriptan Succinate 100 MG Oral TabletIndications:M [...] MONTHLY 1 mL 11 01/09/2022 01/09/2023 Active Premarin 0.625 MG/GM Vaginal Cream (Estrogens [...] as needed for Headache. 1 mL 0 08/21/2022 Active Meperidine HCl 100 MG/ML Injection Solution (Demerol)Indication s:Migraine variant Inject 100 mg into a large muscle every 4 hours as needed for Migraine. 1 mL 0 08/20/2022 Active documented as of this encounter (statuses as of 08/31/2022) Active Problems Problem Noted Date Prediabetes 01/12/2022 [...] as of this encounter (statuses as of 08/31/2022) Resolved Problems Problem Noted Date Resolved Date [...] as of this encounter (statuses as of 08/31/2022) Immunizations Name Administration Dates Next Due COVID-19 [...] Medicine Glendy III, Salvador Cuadra MD [address] [place] [address] Scheduled Orders Name Type Priority Associated Diagnoses Orde r Schedule MYCODE INITIAL ADULT Lab Routine My[facility] Research Other*[id number] Expected: 08/31/2022 (Approximate), Expires: 09/20/2023 Scheduled Procedures Name Priority Associated Diagnoses Date/Ti [...] Over 07/12/2021 07/12/2020 Influenza Vaccine (FLU shot) (Season Ended) 2022 12/18/2020, 01/04/2013, 11/28/2009 HbA1c 12/31/2022 12/31/2021, 06/0 05/2009, 05/01/2005, Additional history exists Colonoscopy 12/21/2024 12/21/2014, 12/21/2014 Colorectal Cancer Screening 12/21/2024 Lipid Panel 12/31/2026 12/31/2021, 06/29, 12/21/2014, Additional history exists DTaP,Tdap,and Td Vaccines (4 - Td or Tdap) 09/12/2029 09/13/2019, 07/18/2009, 04/01/2000 VITAMIN D LEVEL ONCE IN A LIFETIME-USE SMARTSET# [id number] Completed 07/12/2020, 09/05/2018, 08/28/2014, Additional history exists [...] this encounter Visit Diagnoses Diagnosis My[facility] Research Other*[id number] documented in this encounter Advance Directives Latest Code Status on File Code Status Date Activated Date Inactivated Comments Full Code 06/07/2011 11:19 PM 06/10/2011 3:09 PM This order reflects the patients wishes and were consensually agreed upon. Care Teams Telecommunications Switch Technician Relationship Specialty Start Date End Date Salvador Pike III, MD [address] [place] [address] [place] [address] PCP - General Family Medicine 12/25/20 documented as of this encounter
--- OUTSIDE RECORDS SUMMARY | 2023-01-28 10:22 | External Medical Summary | Summary of Care ---
Author Name Unknown Organization [facility] Address [address] [place] [address] Phone [phone] Care Team Providers Care Air Twister Winder Name Role Phone Glendy RABAGO MD, Salvador Cuadra Primary Care Provider [phone] Reason for Referral * Evaluate & Treat - Unlimited Visits (Within 30 days (routine)) - Pending Review Specialty Diagnoses / Procedures Referred By Amador hamilton Referred To Contact Urology Diagnoses Acute cystitis with hematuria Petr Valenzuela PA-C [address] [place] [address] Referral ID Status Reason Start Date Expiration Date Visits Requested Visits Authorized [id number] Pending Review Specialty Services Required 11/13/2022 999 [...] [place] [address] [place] [address] Petr Valenzuela PA-C [address] [place] [address] Dysuria*; Urinary frequency; Acute cystitis with hematuria [...] MCG/ACT nasal sprayIndications:Al lergic rhinitis Administer 1 [place] into nostril daily. 16 g 5 06/12/2015 [...] (FLONASE) 50 MCG/ACT nasal spray Administer 1 [place] into nostril daily. 16 g 5 vitamin [...] AM EDT No blood on microscopy at [facility] documented in this encounter Plan of Treatment Upcoming Encounters Date Type Specialty Care Team Description 06/07/2023 Office Visit Family Medicine Glendy III, Salvador Cuadra MD [address] [place] [address] Scheduled Procedures Name Priority Associated Diagnoses Date/Ti [...] D LEVEL ONCE IN A LIFETIME-USE SMARTSET# [id number] Completed 07/12/2020, 09/05/2018, 08/28/2014, Additional history exists [...] Negative Ketone, Urine Negative Negative mg/dL Specific [place], Urine 1.025 1.003 - 1.030 Blood, Urine [...] and were consensually agreed upon. Care Teams Air Twister Winder Relationship Specialty Start Date End Date Salvador Pike III, MD [address] [place] [address] PCP - General Family Medicine 12/25/20 documented as of this encounter
--- OUTSIDE RECORDS SUMMARY | 2023-01-28 10:22 | External Medical Summary | Summary of Care ---
Author Name Unknown Organization [facility] Address [address] [place] [address] Phone [phone] Care Team Providers Care Utilization Reviewer Name Role Phone Glendy RABAGO MD, Salvador Cuadra Primary Care Provider [phone] Encounter Details Date Type Department Care Team ([facility] st Contact Info) Description 01/08/2023 Specialty Pharmacy [facility], [address] [place] [address] Medication, [facility] Specialty, [address] [address] Allergies Active Allergy Reactions Criticality Noted Date Comments Azithromycin Hives High 07/03/2018 Dihydroergotamine High 07/03/2018 Other reaction(s): "THROAT SHUTS DOWN" Ergotamine 06/10/2001 DHE Ketorolac Tromethamine 01/08/2002 hives Penicillins 02/08/2009 rash Poison [place] Extract Rash 06/12/2015 Azithromycin Hives 12/20/2008 documented as of this encounter (statuses as of 01/08/2023) Medications Medication Sig Dispensed Refills Start Date [...] MCG/ACT nasal sprayIndications:Al lergic rhinitis Administer 1 [place] into nostril daily. 16 g 5 06/12/2015 [...] as of this encounter (statuses as of 01/08/2023) Active Problems Problem Noted Date Diagnosed Date [...] as of this encounter (statuses as of 01/08/2023) Resolved Problems Problem Noted Date Diagnosed Date [...] as of this encounter (statuses as of 01/08/2023) Immunizations Name Administration Dates Next Due COVID-19 [...] on file documented as of this encounter Progress Notes * Shakir Butcher, application internship - 01/08/2023 12:42 PM EST Prescribed medication: Medication: emgality Shipment date: 01/14 Delivery method: Specialty Mail Location Medication Delivered too? Prescription Address: [address] [place] [address] [place] [address] Minal Butcher CPhT [facility] 01/08/2023,12:42 PM documented in this encounter Plan of Treatment Upcoming Encounters Date Type Department Care Team (Late st Contact Info) Description 01/12/2023 8:20 AM EST Office Visit [facility] [address] [facility] [place] [address] Elisabeth Dooley PA-C [address] [facility] [place] [address] 06/07/2023 9:00 AM EDT Office Visit [facility] [address] [facility] [place] [address] Salvador Pike III, MD [address] [facility] [place] [address] Scheduled Procedures Name Priority Associated Diagnoses Date/Ti [...] D LEVEL ONCE IN A LIFETIME-USE SMARTSET# [id number] Completed 07/12/2020, 09/05/2018, 08/28/2014, Additional history exists [...] and were consensually agreed upon. Care Teams Utilization Reviewer Relationship Specialty Start Date End Date Salvador Pike III, MD [address] [facility] [place] [address] PCP - General Family Medicine 12/25/20 documented as of this encounter
--- OUTSIDE RECORDS SUMMARY | 2023-01-28 10:22 | External Medical Summary | Summary of Care ---
Author Name Unknown Organization [facility] Address [address] [place] [address] Phone [phone] Care Team Providers Care Deputy Chief Executive Name Role Phone Glendy RABAGO MD, Salvador Cuadra Primary Care Provider [phone] Reason for Visit * Reason Onset Date Comments Medication Question 10/02/2022 Encounter Details Date Type Department Care Team (Late st Contact Info) Description 10/02/2022 Telephone Family Practice [facility] 200 [facility] [place] [address] Salvador Pike III, MD [address] [place] [address] Medication Question Allergies Active Allergy Reactions Criticality Noted Date Comments Azithromycin Hives High 07/03/2018 Dihydroergotamine High 07/03/2018 Other reaction(s): "THROAT SHUTS DOWN" Ergotamine 06/10/2001 DHE Ketorolac Tromethamine 01/08/2002 hives Penicillins 02/08/2009 rash Poison [place] Extract Rash 06/12/2015 Azithromycin Hives 12/20/2008 documented as of this encounter (statuses as of 12/24/2022) Medications Medication Sig Dispensed Refills Start Date [...] MCG/ACT nasal sprayIndications:Al lergic rhinitis Administer 1 [place] into nostril daily. 16 g 5 06/12/2015 [...] as of this encounter (statuses as of 12/24/2022) Active Problems Problem Noted Date Diagnosed Date [...] as of this encounter (statuses as of 12/24/2022) Resolved Problems Problem Noted Date Diagnosed Date [...] as of this encounter (statuses as of 12/24/2022) Immunizations Name Administration Dates Next Due COVID-19 [...] encounter Miscellaneous Notes * Telephone Encounter - Brionna Cartwright RN - 10/06/2022 4:06 PM EDT See message of 10/05/22. * Telephone Encounter - SANA Garcia - 10/02/2022 3:15 PM EDT PRIOR AUTH MEDICINE: MEPERIDINE HCI 100 MG/ML SOLUTION AGUDELO: [id number] documented in this encounter Plan of Treatment Upcoming Encounters Date Type Department Care Team (Late st Contact Info) Description 06/07/2023 9:00 AM EDT [facility] [place] [address] [place], [place] [address] Salvador Pike III, MD [address] [place], [place] [address] Scheduled Procedures Name Priority Associated Diagnoses Date/Ti [...] D LEVEL ONCE IN A LIFETIME-USE SMARTSET# [id number] Completed 07/12/2020, 09/05/2018, 08/28/2014, Additional history exists [...] and were consensually agreed upon. Care Teams Deputy Chief Executive Relationship Specialty Start Date End Date Salvador Pike III, MD [address] [place] [address] PCP - General Family Medicine 12/25/20 documented as of this encounter
--- OUTSIDE RECORDS SUMMARY | 2023-01-28 10:22 | External Medical Summary | Summary of Care ---
Author Name Unknown Organization [facility] Address [address] [place] [address] Phone [phone] Care Team Providers Care Photoengraving Finisher Name Role Phone Glendy RABAGO MD, Denzel Cuadra Primary Care Provider [phone] Reason for Visit * Reason Onset Date Comments Medication Refill 08/19/2022 Encounter Details Date Type Department Care Team Description 08/19/2022 Refill Family Practice [facility] [address] [facility] [place] [address] Denzel Mcnair III, MD [address] [place] [address] Common migraine with intractable migraine Allergies Active Allergy Reactions Severity Noted Date Comments Azithromycin Hives High 07/03/2018 Dihydroergotamine High 07/03/2018 Other reaction(s): "THROAT SHUTS DOWN" Ergotamine 06/10/2001 DHE Ketorolac Tromethamine 01/08/2002 hives Penicillins 02/08/2009 rash Poison [place]ita Extract Rash 06/12/2015 Azithromycin Hives 12/20/2008 documented as of this encounter (statuses as of 08/21/2022) Medications Medication Sig Dispensed Refills Start Date [...] MCG/ACT nasal sprayIndications:A llergic rhinitis Administer 1 [place] into nostril daily. 16 g 5 06/12/2015 [...] as needed for Headache. 1 mL 0 07/14/2022 3 Discontinue d(Refill) documented as of this encounter (statuses as of 08/21/2022) Active Problems Problem Noted Date Prediabetes 01/12/2022 [...] as of this encounter (statuses as of 08/21/2022) Resolved Problems Problem Noted Date Resolved Date [...] as of this encounter (statuses as of 08/21/2022) Immunizations Name Administration Dates Next Due COVID-19 [...] Encounter - Denzel Mcnair III, MD - 08/21/2022 2:44 PM EDTSigned Prescriptions: Disp Refills Meperidine HCl 100 MG/ML Injection Solutio*1 mL 0 Sig: Inject 100 mg into a large muscle every 4 hours as needed for Headache.Authorizing Provider: DENZEL MCNAIR III * Telephone Encounter - Denzel Mcnair III, MD - 08/21/2022 2:44 PM EDTSigned Prescriptions: Disp Refills Meperidine HCl 100 MG/ML Injection Solutio*1 mL 0 Sig: Inject 100 mg into a large muscle every 4 hours as needed for Headache.Authorizing Provider: DENZEL MCNAIR III * Telephone Encounter - Fanny Daniel LPN - 08/21/2022 2:36 PM EDTPending Prescriptions: Disp Refills Meperidine HCl 100 MG/ML Injection Solutio*1 mL 0 Sig: Inject 100 mg into a large muscle every 4 hours as needed for Headache. * Telephone Encounter - Fanny Daniel LPN - 08/21/2022 2:36 PM EDT This is not a [place] pt * Telephone Encounter - Yassine Barrera, [facility] - 08/21/2022 1:43 PM EDT Patient requested a re-route to [facility] I have reviewed the patients controlled substance dispensing history in the Prescription Drug Monitoring Program in compliance with the [place] regulations before prescribing a controlled substance. PDMP checked on 08/21/2022. Pending Prescriptions: Disp Refills Meperidine HCl 100 MG/ML Injection Soluti*1 mL 0 Sig: Inject 100 mg into a large muscle every 4 hours as needed for Headache. Last Visit: 06/01/2022 (in office), 12/26/2021 (telemedicine) Next Visit: 06/07/2023 Date medication was last filled: 07/14/2022 Date medication is due for refill: 07/15/2022 Pharmacy: [id number] Is this request for a controlled substance? Yes and Urine Drug Screen Not completed Toxicology results: No results found. However, due to the size of the patient record, not all encounters were searched.Please check Results Review for a complete set of results. Please approve if appropriate. Thank you, Yassine Barrera, PharmD Clinical Pharmacist [facility] ([facility]) (Formerly Telepharmacy) [phone] 08/21/2022, 1:43 PM documented in this encounter Plan of Treatment Upcoming Encounters Date Type Specialty Care Team Description 06/07/2023 Office Visit Family Medicine [place] RABAGO, Denzel Cuadra MD [address] [place] [address] Scheduled Procedures Name Priority Associated Diagnoses Date/Ti [...] D LEVEL ONCE IN A LIFETIME-USE SMARTSET# [id number] Completed 07/12/2020, 09/05/2018, 08/28/2014, Additional history exists [...] and were consensually agreed upon. Care Teams Photoengraving Finisher Relationship Specialty Start Date End Date Denzel Mcnair III, MD [address] [place] [address], [place] [address] PCP - General Family Medicine 12/25/20 documented as of this encounter
--- OUTSIDE RECORDS SUMMARY | 2023-01-28 10:22 | External Medical Summary | Summary of Care ---
Author Name Unknown Organization [facility] Address [address] [facility] [place] [address] Phone [phone] Care Team Providers Care Cardiac Nurse Practitioner Name Role Phone Glendy RABAGO MD, Salvador Cuadra Primary Care Provider [phone] Reason for Visit * Reason Comments Medication Refill Encounter Details Date Type Department Care Team (Late st Contact Info) Description 01/08/2023 Refill Neurology [facility] [address] [place] [address] Lars Pierre, [address] [place] [address] Allergies Active Allergy Reactions Criticality Noted Date [...] MCG/ACT nasal sprayIndications:A llergic rhinitis Administer 1 [place] into nostril daily. 16 g 5 06/12/2015 [...] MONTHLY 1 mL 11 01/08/2023 4 Active Galcanezumab-gnlm 120 MG/ML Subcutaneous Solution Prefilled Syringe (Emgality) INJECT 1 ML UNDER THE SKIN ONCE MONTHLY 1 mL 11 01/09/2022 3 Discontinue d(Refill) documented as of this [...] encounter Miscellaneous Notes * Telephone Encounter - Lars Pierre DO - 01/08/2023 2:40 PM EST Signed Prescriptions: Disp Refills Emgality 120 MG/ML Subcutaneous Solution P*1 mL 11 Sig: INJECT 1ML UNDER THE SKIN ONCE MONTHLYAuthorizing Provider: LARS PIERRE documented in this encounter Plan of Treatment Upcoming Encounters Date Type Department Care Team (Late st Contact Info) Description 01/12/2023 8:20 AM EST Office Visit [facility] 200 [facility] [place] [address] Elisabeth Dooley, BOB 200 [facility] [place] [address] 06/07/2023 9:00 AM EDT Office Visit [facility] 200 [facility] [place] [id number] Salvador Pike III, MD 200 [facility] [place] [address] Scheduled Procedures Name Priority Associated Diagnoses Date/Ti [...] D LEVEL ONCE IN A LIFETIME-USE SMARTSET# [id number] Completed 07/12/2020, 09/05/2018, 08/28/2014, Additional history exists [...] and were consensually agreed upon. Care Teams Cardiac Nurse Practitioner Relationship Specialty Start Date End Date Salvador Pike III, MD 200 [facility] [place] [address] PCP - General Family Medicine 12/25/20 documented as of this encounter
--- OUTSIDE RECORDS SUMMARY | 2023-01-28 10:22 | External Medical Summary | Summary of Care ---
Author Name Unknown Organization [facility] Address [address] [place] [address] Phone [phone] Care Team Providers Care Developer Programmer Analyst Name Role Phone Glendy RABAGO MD, Salvador Cuadra Primary Care Provider Encounter Details Date Type Department Care Team Description 10/25/2022 Result Scan Unspecified Department <No scans attached> Allergies Active Allergy Reactions Severity Noted Date Comments Azithromycin Hives High 07/03/2018 Dihydroergotamine High 07/03/2018 Other reaction(s): "THROAT SHUTS DOWN" Ergotamine 06/10/2001 DHE Ketorolac Tromethamine 01/08/2002 hives Penicillins 02/08/2009 rash Poison [place] Extract Rash 06/12/2015 Azithromycin Hives 12/20/2008 documented as of this encounter (statuses as of 11/16/2022) Medications Medication Sig Dispensed Refills Start Date [...] MCG/ACT nasal sprayIndications:Al lergic rhinitis Administer 1 [place] into nostril daily. 16 g 5 06/12/2015 [...] for Headache. 1 mL 0 10/05/2022 Active documented as of this encounter (statuses as of 11/16/2022) Active Problems Problem Noted Date Prediabetes 01/12/2022 [...] as of this encounter (statuses as of 11/16/2022) Resolved Problems Problem Noted Date Resolved Date [...] as of this encounter (statuses as of 11/16/2022) Immunizations Name Administration Dates Next Due COVID-19 [...] Description 06/07/2023 Office Visit Family Medicine Glendy RABAGO, Salvador Cuadra MD 200 [facility] [place] [address] Scheduled Procedures Name Priority Associated Diagnoses Date/Ti [...] D LEVEL ONCE IN A LIFETIME-USE SMARTSET# [id number] Completed 07/12/2020, 09/05/2018, 08/28/2014, Additional history exists [...] Procedure Name Priority Date/Time Associated Diagnosis Comments OUTSIDE LAB RESULTS 10/25/2022 documented in this encounter Results * OUTSIDE LAB RESULTS (10/25/2022) 10/25/2022 No Physician Data Unknown LABORATORY documented in this encounter Advance Directives Latest Code Status on File Code Status Date Activated Date Inactivated Comments Full Code 06/07/2011 11:19 PM 06/10/2011 3:09 PM This order reflects the patients wishes and were consensually agreed upon. Care Teams Developer Programmer Analyst Relationship Specialty Start Date End Date Salvador Pike III, MD 200 [facility] [place] [address] PCP - General Family Medicine 12/25/20 documented as of this encounter
--- OUTSIDE RECORDS SUMMARY | 2023-01-28 10:23 | External Medical Summary | Summary of Care ---
Author Name Unknown Organization [facility] Address [address] [place] [address] Phone [phone] Care Team Providers Care Fur Machine Operator Name Role Phone Glendy RABAGO MD, Denzel Cuadra Primary Care Provider [phone] Reason for Visit * Reason Onset Date Comments Medication Refill 08/14/2022 Encounter Details Date Type Department Care Team Description 08/14/2022 Refill Family Practice [facility] 200 [facility] [place] [address] Denzel Mcnair III, MD [address] [place] [address] Other osteoporosis without current pathological fracture Allergies Active Allergy Reactions Severity Noted Date Comments Azithromycin Hives High 07/03/2018 Dihydroergotamine High 07/03/2018 Other reaction(s): "THROAT SHUTS DOWN" Ergotamine 06/10/2001 DHE Ketorolac Tromethamine 01/08/2002 hives Penicillins 02/08/2009 rash Poison [place] Extract Rash 06/12/2015 Azithromycin Hives 12/20/2008 documented as of this encounter (statuses as of 08/17/2022) Medications Medication Sig Dispensed Refills Start Date [...] MCG/ACT nasal sprayIndications:A llergic rhinitis Administer 1 [place] into nostril daily. 16 g 5 06/12/2015 [...] MONTHLY 1 mL 11 01/09/2022 3 Active Meperidine HCl 100 MG/ML Injection Solution (Demerol)Indicatio ns:Common migraine with intractable migraine Inject 100 mg into a large muscle every 4 hours as needed for Headache. 1 mL 0 07/14/2022 Active Premarin 0.625 MG/GM Vaginal Cream (Estrogens [...] taking tablet 12 Tablet 2 08/17/2022 Active Alendronate Sodium 70 MG Oral Tablet (Fosamax)Indicatio ns:Other osteoporosis without current pathological fracture Take 1 tablet by mouth weekly with 8 oz of water 30 min before the first meal of the day, remain upright for 30 min after taking tablet 12 Tablet 2 06/15/2022 3 Discontinued (Refill) Sulfamethoxazole-T rimethoprim 800-160 MG Oral Tablet (Bactrim DS) Take 1 Tablet by mouth in the morning and 1 Tablet before bedtime. Do all this for 3 days. Until gone. 6 Tablet 0 08/11/2022 3 Premarin 0.625 MG/GM Vaginal Cream (Estrogens Conjugated) Insert vaginally as directed twice weekly at bedtime(mon and thurs) 90 g 3 08/11/2022 3 Discontinued (Refill) documented as of this encounter (statuses as of 08/17/2022) Active Problems Problem Noted Date Prediabetes 01/12/2022 [...] as of this encounter (statuses as of 08/17/2022) Resolved Problems Problem Noted Date Resolved Date [...] as of this encounter (statuses as of 08/17/2022) Immunizations Name Administration Dates Next Due COVID-19 [...] Encounter - Denzel Mcnair III, MD - 08/17/2022 7:43 AM EDTSigned Prescriptions: Disp Refills Premarin 0.625 MG/GM Vaginal Cream (Estrog*90 g 3 Sig: Insert vaginally as directed twice weekly at bedtime(mon and thurs)Authorizing Provider: DENZEL MCNAIR III Alendronate Sodium 70 MG Oral Tablet (Fosa*12 Tab*2 Sig: Take 1 tablet by mouth weekly with 8 oz of water 30 min before the first meal of the day, remain upright for 30 min after taking tabletAuthorizing Provider: DENZEL MCNAIR III ERefusesiva Prescriptions: Disp Refills Premarin 0.625 MG/GM Vaginal Cream (Estrog*90 g 3 Sig: Insert vaginally as directed twice weekly at bedtime(wed and )Refused By: LILLIAM AMAYAeason for Refusal: Too soon * Telephone Encounter - Abraham Amaya LPN - 08/14/2022 4:21 PM EDTPending Prescriptions: Disp Refills Premarin 0.625 MG/GM Vaginal Cream (Estrog*90 g 3 Sig: Insert vaginally as directed twice weekly at bedtime(wed and ) Alendronate Sodium 70 MG Oral Tablet (Fosa*12 Tab*2 Sig: Take 1 tablet by mouth weekly with 8 oz of water 30 min before the first meal of the day, remain upright for 30 min after taking table t Refused Prescriptions: Disp Refills Premarin 0.625 MG/GM Vaginal Cream (Estrog*90 g 3 Sig: Insert vaginally as directed twice weekly at bedtime(wed and ) Refused By: ABRAHAM AMAYA Reason for Refusal: Too soon * Telephone Encounter - Abraham Amaya LPN - 08/14/2022 4:14 PM EDT Provider to address: Dr. Mcnair Reason for Call: Medication Refill Contact: Telephone Call Contact Type: Medication Outcome: Pt needs Rx sent to Employee mail order Total Time including non face to face (minutes): 10 Rx pended per your approval, thank you. documented in this encounter Plan of Treatment Upcoming Encounters Date Type Specialty Care Team Description 06/07/2023 Office Visit Family Medicine Glendy III, Denzel Cuadra MD 200 [facility] [place] [address] Scheduled Procedures Name Priority Associated Diagnoses Date/Ti [...] D LEVEL ONCE IN A LIFETIME-USE SMARTSET# [id number] Completed 07/12/2020, 09/05/2018, 08/28/2014, Additional history exists [...] as of this encounter Visit Diagnoses Diagnosis Other osteoporosis without current pathological fracture documented in this encounter Advance Directives Latest Code Status on File Code Status Date Activated Date Inactivated Comments Full Code 06/07/2011 11:19 PM 06/10/2011 3:09 PM This order reflects the patients wishes and were consensually agreed upon. Care Teams Fur Machine Operator Relationship Specialty Start Date End Date Denzel Mcnair III, MD [address] [place] [address], [place] [address] PCP - General Family Medicine 12/25/20 documented as of this encounter
--- OUTSIDE RECORDS SUMMARY | 2023-01-28 10:23 | External Medical Summary | Summary of Care ---
Author Name Unknown Organization [facility] Address [address] [place] [address] Phone [phone] Care Team Providers Care Sack Cleaning Hand Name Role Phone Glendy RABAGO MD, Salvador Cuadra Primary Care Provider [phone] Reason for Visit * Reason Onset Date Comments Medication Refill 08/20/2022 Encounter Details Date Type Department Care Team Description 08/20/2022 Refill Family Practice [facility] 200 [facility] [place] [address] Salvador Pike III, MD 200 [place] [address] Migraine variant Allergies Active Allergy Reactions Severity Noted Date [...] MCG/ACT nasal sprayIndications:Al lergic rhinitis Administer 1 [place] into nostril daily. 16 g 5 06/12/2015 [...] MONTHLY 1 mL 11 01/09/2022 01/09/2023 Active Meperidine HCl 100 MG/ML Injection Solution [...] encounter Miscellaneous Notes * Telephone Encounter - Mandeep Barrera [facility] - 08/21/2022 1:47 PM EDTRefused Prescriptions: Disp Refills Meperidine HCl 100 MG/ML Injection Solutio*1 mL 0 Sig: Inject 100 mg into a large muscle every 4 hours as needed for Migraine.Refused By: MANDEEP BARRERA for Refusal: Other (comment below)Reason for Refusal Comment: Sent MyG documented in this encounter Plan of Treatment Upcoming Encounters Date Type Specialty Care Team Description 06/07/2023 Office Visit Family Medicine Glendy RABAGO, Salvador Cuadra MD [address] [place] [address], [place] [id number] Scheduled Procedures Name Priority Associated Diagnoses Date/Ti [...] D LEVEL ONCE IN A LIFETIME-USE SMARTSET# [id number] Completed 07/12/2020, 09/05/2018, 08/28/2014, Additional history exists [...] as of this encounter Visit Diagnoses Diagnosis Migraine variant Variants of migraine, not elsewhere classified, without mention of intractable migraine without mention of status migrainosus documented in this encounter Advance Directives Latest Code Status on File Code Status Date Activated Date Inactivated Comments Full Code 06/07/2011 11:19 PM 06/10/2011 3:09 PM This order reflects the patients wishes and were consensually agreed upon. Care Teams Sack Cleaning Hand Relationship Specialty Start Date End Date Salvador Pike III, MD [address] [place] [address], [place] [address] PCP - General Family Medicine 12/25/20 documented as of this encounter
--- OUTSIDE RECORDS SUMMARY | 2023-01-28 10:23 | External Medical Summary | Summary of Care ---
Author Name Unknown Organization [facility] Address [address] [place] [address] Phone [phone] Care Team Providers Care Mmd Unit Teacher Name Role Phone Glendy RABAGO MD, Denzel Cuadra Primary Care Provider [phone] Reason for Visit * Reason Onset Date Comments Medication Refill 08/10/2022 Encounter Details Date Type Department Care Team Description 08/10/2022 Refill General Internal Medicine [facility] 200 [facility] [place] [place] [address] Denzel Mcnair III, MD 200 [place] [address] Allergies Active Allergy Reactions Severity Noted Date Comments Azithromycin Hives High 07/03/2018 Dihydroergotamine High 07/03/2018 Other reaction(s): "THROAT SHUTS DOWN" Ergotamine 06/10/2001 DHE Ketorolac Tromethamine 01/08/2002 hives Penicillins 02/08/2009 rash Poison [place] Extract Rash 06/12/2015 Azithromycin Hives 12/20/2008 documented as of this encounter (statuses as of 08/11/2022) Medications Medication Sig Dispensed Refills Start Date [...] MCG/ACT nasal sprayIndications:A llergic rhinitis Administer 1 [place] into nostril daily. 16 g 5 06/12/2015 [...] MONTHLY 1 mL 11 01/09/2022 3 Active Alendronate Sodium 70 MG Oral Tablet (Fosamax)Indicatio ns:Other osteoporosis without current pathological fracture Take 1 tablet by mouth weekly with 8 oz of water 30 min before the first meal of the day, remain upright for 30 min after taking tablet 12 Tablet 2 06/15/2022 Active Meperidine HCl 100 MG/ML Injection Solution (Demerol)Indicatio ns:Common migraine with intractable migraine Inject 100 mg into a large muscle every 4 hours as needed for Headache. 1 mL 0 07/14/2022 Active Premarin 0.625 MG/GM Vaginal Cream (Estrogens Conjugated) Insert vaginally as directed twice weekly at bedtime(mon and thurs) 90 g 3 08/11/2022 Active Premarin 0.625 MG/GM Vaginal Cream (Estrogens, Conjugated) Insert vaginally as directed twice weekly at bedtime(mon and thurs) 90 g 3 01/07/2021 3 Discontinue d(Refill) documented as of this encounter (statuses as of 08/11/2022) Active Problems Problem Noted Date Prediabetes 01/12/2022 [...] as of this encounter (statuses as of 08/11/2022) Resolved Problems Problem Noted Date Resolved Date [...] as of this encounter (statuses as of 08/11/2022) Immunizations Name Administration Dates Next Due COVID-19 [...] Encounter - Denzel Mcnair III, MD - 08/11/2022 8:41 AM EDTSigned Prescriptions: Disp Refills Premarin 0.625 MG/GM Vaginal Cream (Estrog*90 g 3 Sig: Insert vaginally as directed twice weekly at bedtime(mon and thurs)Authorizing Provider: DENZEL MCNAIR III--- * Telephone Encounter - Abraham Amaya LPN - 08/10/2022 2:54 PM EDTPending Prescriptions: Disp Refills Premarin 0.625 MG/GM Vaginal Cream (Estrog*90 g 3 Sig: Insert vaginally as directed twice weekly at bedtime(mon and thurs) * Telephone Encounter - Abraham Amaya LPN - 08/10/2022 2:52 PM EDT Did you pend patient's preferred pharmacy and medication before forwarding?yes [id number] [address] Pending Prescriptions: Disp Refills Premarin 0.625 MG/GM Vaginal Cream (Estro*90 g 3 Sig: Insert vaginally as directed twice weekly at bedtime(mon and thurs) Last Visit: 10/18/2020 (in office), Visit date not found (telemedicine) Next Visit: Visit date not found If no future appointments scheduled, and last appointment is greater than a year ago, please schedule patient for a follow-up appointment Last date the medication was ordered: 01/07/21 Is this request for a controlled substance?No [...] Medicine Glendy III, Denzel Cuadra MD 200 [facility] [place] [address] Scheduled Procedures Name Priority Associated Diagnoses Date/Ti [...] D LEVEL ONCE IN A LIFETIME-USE SMARTSET# [id number] Completed 07/12/2020, 09/05/2018, 08/28/2014, Additional history exists [...] and were consensually agreed upon. Care Teams Mmd Unit Teacher Relationship Specialty Start Date End Date Denzel Mcnair III, MD 200 [facility] [place] [place] [address] PCP - General Family Medicine 12/25/20 documented as of this encounter
--- OUTSIDE RECORDS SUMMARY | 2023-01-28 10:23 | External Medical Summary | Summary of Care ---
Author Name Unknown Organization [facility] Address [address] [place] [address] Phone [phone] Care Team Providers Care Windows Laptop Technician Name Role Phone Glendy RABAGO MD, Salvador Cuadra Primary Care Provider [phone] Reason for Visit * Reason Onset Date Comments Medication Refill 08/13/2022 Encounter Details Date Type Department Care Team Description 08/13/2022 Refill Family Practice [facility] 200 [facility] [place] [address] Salvador Pike III, MD 200 [place] [address] Allergies Active Allergy Reactions Severity Noted Date Comments Azithromycin Hives High 07/03/2018 Dihydroergotamine High 07/03/2018 Other reaction(s): "THROAT SHUTS DOWN" Ergotamine 06/10/2001 DHE Ketorolac Tromethamine 01/08/2002 hives Penicillins 02/08/2009 rash Poison [place] Extract Rash 06/12/2015 Azithromycin Hives 12/20/2008 documented as of this encounter (statuses as of 08/14/2022) Medications Medication Sig Dispensed Refills Start Date [...] MCG/ACT nasal sprayIndications:Al lergic rhinitis Administer 1 [place] into nostril daily. 16 g 5 06/12/2015 [...] MONTHLY 1 mL 11 01/09/2022 01/09/2023 Active Alendronate Sodium 70 MG Oral Tablet [...] for Headache. 1 mL 0 07/14/2022 Active Sulfamethoxazole-Tr imethoprim 800-160 MG Oral Tablet (Bactrim DS) Take 1 Tablet by mouth in the morning and 1 Tablet before bedtime. Do all this for 3 days. Until gone. 6 Tablet 0 08/11/2022 08/14/2022 Active Premarin 0.625 MG/GM Vaginal Cream (Estrogens Conjugated) Insert vaginally as directed twice weekly at bedtime(mon and thurs) 90 g 3 08/11/2022 Active documented as of this encounter (statuses as of 08/14/2022) Active Problems Problem Noted Date Prediabetes 01/12/2022 [...] as of this encounter (statuses as of 08/14/2022) Resolved Problems Problem Noted Date Resolved Date [...] as of this encounter (statuses as of 08/14/2022) Immunizations Name Administration Dates Next Due COVID-19 [...] encounter Miscellaneous Notes * Telephone Encounter - Abraham Amaya LPN - 08/14/2022 4:13 PM EDT Provider to address: nothing Reason for Call: Medication Refill Contact: [facility] Contact Type: Medication Outcome: too soon Total Time including non face to face (minutes): 10 documented in this encounter Plan of Treatment Upcoming Encounters Date Type Specialty Care Team Description 06/07/2023 Office Visit Family Medicine Glendy III, Salvador Cuadra MD [address] [place] [address] Scheduled Procedures Name Priority Associated Diagnoses Date/Ti [...] D LEVEL ONCE IN A LIFETIME-USE SMARTSET# [id number] Completed 07/12/2020, 09/05/2018, 08/28/2014, Additional history exists [...] and were consensually agreed upon. Care Teams Windows Laptop Technician Relationship Specialty Start Date End Date Salvador Pike III, MD 200 [facility] [place] [address] PCP - General Family Medicine 12/25/20 documented as of this encounter
[2023-01-28] MEDS ORDERED: MECLIZINE HCL 25 MG TAB PO PRN (10:26)
[2023-01-28] MEDS ORDERED: D5W AND NSS 1,000 ML IV SCH (10:30)
[2023-01-28] MEDS ORDERED: LORazepam 1 MG/1 ML SYR ED Inj Use IV STA (10:31)
[2023-01-28] MEDS ORDERED: cefTRIAXone SODIUM 2,000 MG/50 ML BAG IV STA (10:31)
--- NOTE | 2023-01-28 10:38 | History & Physical Report ---
Date of Service January 28, 2023 Assessment & Plan (1) Stroke-like symptoms: (2) Acute viral labyrinthitis: (3) Sinusitis: (4) Migraine headache: (5) Patent foramen ovale: (6) Hypothyroidism: Plan Patient is a 57 year old F presents with dizziness and gait disturbances. See above for further outlined details. Will complete work-up for ruling out stroke with neurology consult, PT/OT/ST, await brain MRI. Suspect patient has acute viral labyrinthitis secondary to current sinusitis and with positive vestibular ocular reflex on exam. Patient with known hemiplegic and complex migraines which could be contributing symptoms. Head CT, neck/had CTA negative for stroke, SDH. Brain MRI pending. Chest CTA obtained due to history of PFO without sign of AAA or PE. No leukocytosis and BMP unremarkable. Continue antibiotic course with IV Rocephin and start on steroids x5 days with meclizine as needed. Patient with known history of ureteral calculus, currently without JON will obtain KUB and start daily Protonix IV. For completeness will trend troponin and obtain echocardiogram with a repeat ECG for comparison in a.m. Stroke-Like Symptoms: Telestroke discussed with Dr. St at [facility] suspect more peripheral in nature and no acute CVA Head CT negative for acute stroke, SDH, ICH Head/neck CTA negative Chest CTA negative for AAA Brain MRI pending Troponin pending Most recent lipid panel from 01/12/23: TG 83, LDL 175, HDL 62; suspect will require lipid-lowering agent; will await MRI and neuro consult before initiating dose Received ASA 324 in ED; continue daily ASA 81 mg Started D5NS @ 75ml/hour x2 bags; reassess Consult neurology PT/OT/ST Acute viral Labyrinthitis: Sinusitis: Acute uncontrolled Currently being treated for sinusitis with cephalexin; once day 7 out of 10; switch to IV Rocephin, first dose given in ED Positive vestibular ocular reflex on exam Meclizine given in ED and will continue as needed Started on prednisone 60 mg x 5 days; reassess Hemiplegic and complex migraines: Chronic stable Has chronic auras and notes numbness and dizziness associated with these symptoms Takes sumatriptan and Emgality subcu monthly Left hydronephrosis: Acute uncontrolled History of ureteral calculus Noted on chest CTA; will obtain KUB to evaluate and rule out ureteral calculus No JON at this time We will start Protonix IV daily H/O PFO: Chronic stable ECG with BBB; QTc 449; will obtain ECG in a.m. Obtain baseline echocardiogram Hypothyroidism: Chronic stable Recent diagnosis as of last month Started on levothyroxine; continue Most recent TSH 3.08 01/12/23 Disposition: PCP: Dr. Pike Code Status: Full Code VTE Prophylaxis: Lovenox SQ I spent a total of 87 minutes coordinating, documenting, and providing care for this patient excluding time spent in the performance of separately billed services. All of the aforementioned completed while collaborating with the assigned attending physician for a full treatment plan. Please see their addendum for further details. History of Present Illness Chief Complaint: chest pain Primary Care Provider: Salvador Pike MD Ms. 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 She didn't feel like she lost consciousness, but felt that she would have fallen if she stood up. She had her vitals done at the office and was advised to come to the ED for further evaluation and management. She currently denies double or blurry vision. If she turns her head or has a hard time focusing. No history of TIA/CVA . This morning, no slurred speech; noted to be talking slower. Noted she was struggling more on the left side and was weaker overall. Patient does have a history of hemiplegic and complex migraines with aura. She follows with Dr. Pierre and was diagnosed a few years ago and takes sumatriptan and Emgality. She woke normally at 0530; at 0700 she ate two bags of quarter instant oatmeal. She is taking Cephalexin, day 09/07 today for sinusitis which started the day before with discomfort at maxillary sinus with thick sputum with productive cough. She recently had air travel to [place] over but does not report any additional stressors during her trip. In the ED Head CT, neck/had CTA negative for stroke, SDH. Brain MRI pending. Chest CTA obtained due to history of PFO without sign of AAA or PE. No leukocy tosis and BMP unremarkable. Was recently started on Levothyroxine right before . She had a thyroid US without nodule. When her headaches start, she has numbness, dizziness, aura. Has been complaining of chest pain over the past few months at rest; anterior chest pain with left shoulder/back radiation with palpitations. She does try to capture ECG on her watch but it says unable to analyze. Pt denies WOODARD, dizziness, slurred speech, SOB, stefania pain or tenderness, swelling, recent falls or trauma. Patient with history of PFO, migraines with aura and follows with Dr. Pierre and was diagnosed with hemiplegic and complex migraine. patient denies tobacco, alcohol, or recretational drug use. Since she arrived, when she stands and closes her eyes, she can't focus on balance. Her nausea is improved. She reports it at wavy valero, but not spinning. On this admission will complete work-up for ruling out stroke with neurology consult, PT/OT/ST, await brain MRI. Suspect patient has acute viral labyrinthitis secondary to current sinusitis and with positive vestibular ocular reflex on exam. Patient with known hemiplegic and complex migraines which could be contributing symptoms. Continue antibiotic course with IV Rocephin and start on steroids x5 days with meclizine as needed. Patient with known history of ureteral calculus, currently without JON will obtain KUB and start daily Protonix IV. For completeness will trend troponin and obtain echocardiogram with a repeat ECG for comparison in a.m. Patient will be admitted for further evaluation and management. Please see A/P for further details. Allergies Allergy/AdvReac Type Severity Reaction Status Date / Time azithromycin [From Zithromax] Allergy Severe Hives Verified 01/28/23 10:13 dihydroergotamine Allergy Severe "THROAT Verified 01/28/23 10:13 SHUTS DOWN" ketorolac Allergy Intermediate HIVES Verified 01/28/23 10:13 Penicillins Allergy Intermediate Hives Verified 01/28/23 10:13 Home Medications Medication Instructions Recorded Confirmed Type ascorbic acid (vitamin C) 500 mg 500 mg PO QAM 11/11/17 01/28/23 History tablet (Vitamin C) conjugated estrogens 0.625 mg/gram 1 applic vaginal 2XWK 11/11/17 01/28/23 History vaginal cream (Premarin) fluticasone propionate 50 1 spray intranasal DAILY PRN 11/11/17 01/28/23 History mcg/actuation nasal Allergy Symptoms spray,suspension (Flonase Allergy Relief) folic acid 400 mcg tablet 400 mcg PO QAM 11/11/17 01/28/23 History lysine 500 mg tablet (L-Lysine) 500 mg PO DAILY PRN Cold Sore(s) 11/11/17 01/28/23 History selenium 200 mcg tablet (SelenoMax) 200 mcg PO QAM PRN illness 11/11/17 01/28/23 History sennosides 8.6 mg-docusate sodium 1 tab PO BID PRN Constipation 11/11/17 01/28/23 History 50 mg tablet (Senna-S) sumatriptan succinate 100 mg 100 mg PO UD PRN Migraine Headache 11/11/17 01/28/23 History tablet (Imitrex) cholecalciferol (vitamin D3) 125 5,000 units PO QAM 07/03/18 01/28/23 History mcg (5,000 unit) tablet (Vitamin D3) meperidine (PF) 100 mg/mL 1 ml IM DIRECTED PRN Migraine 07/03/18 01/28/23 History injection solution Headache multivitamin (Multiple Vitamins 1 tab PO QAM 07/03/18 01/28/23 History tablet) ondansetron 4 mg disintegrating 4 mg PO Q6H PRN nausea and 09/07/20 01/28/23 Rx tablet vomiting #20 tabs ibuprofen 800 mg tablet 800 mg PO DIRECTED PRN Pain 09/26/20 01/28/23 History phenazopyridine 100 mg tablet 100 mg PO TID PRN bladder spasms 10/04/20 01/28/23 Rx (Pyridium) #10 tabs galcanezumab-gnlm 120 mg/mL 120 mg subcut MONTHLY 10/25/22 01/28/23 History subcutaneous syringe (Emgality) cephalexin 500 mg capsule 500 mg PO BID 01/28/23 01/28/23 History levothyroxine 25 mcg tablet 25 mcg PO QAM 01/28/23 01/28/23 History Past Med/Surg History Medical History Hypothyroidism Acute viral labyrinthitis Stroke-like symptoms Hydronephrosis Calculus of distal right ureter Right ureteral stone Hydronephrosis, right Osteoporosis Lyme disease History of kidney stones Patent foramen ovale (07/27/12) Migraine headache Surgical History H/O bilateral oophorectomy History of hysterectomy Family History Mother Cervical cancer Social History Smoking Status: Never smoker Hx Alcohol Use: Yes Alcohol Intake Frequency: 2-4 x/Month Preferred Language: Citizen Of [place] Beliefs That Will Affect Care: None Current Living Situation: Spouse and Family Feels Safe at Home: Yes Assistive Devices: None Review of Systems Review of Systems: Neuro: (-) Falls, trauma, slurred speech HEENT: (+) WOODARD, dizziness, (-) dysphagia, (+) visual changes (+) tinnitus CV: (-) CP, palpitations, swelling Resp: (-) SOB GI: (-) appetite changes, N/V/D, bowel changes : (-) urinary changes Skin: (-) rashes Psych: (-) anxiety, depression Physical Exam Physical Exam: See Dr. Joy's addendum for PE. Results & Data Results & Data Vital Signs (Past 12 Hours) Vital Signs Temp Pulse Pulse Resp BP BP Pulse Ox 01/28/23 09:45 133/88 01/28/23 09:45 72 17 99 01/28/23 09:44 71 15 99 01/28/23 09:44 142/93 H 01/28/23 09:33 82 16 98 01/28/23 09:33 78 01/28/23 09:32 82 18 137/89 99 01/28/23 08:58 36.7 C 78 17 128/89 99 O2 Del Method 01/28/23 09:45 01/28/23 09:45 01/28/23 09:44 01/28/23 09:44 01/28/23 09:33 01/28/23 09:33 01/28/23 09:32 Room Air 01/28/23 08:58 Room Air Laboratory Results Short CBC 01/28/23 Range/Units 09:09 WBC 4.44 L (4.8-10.8) K/ul Hgb 13.5 (12.0-16.0) g/dl Hct 40.2 (37.0-47.0) % Plt Count 202 (130-400) K/uL BMP 01/28/23 09:09 Sodium 139 Potassium 4.0 Chloride 104 Carbon Dioxide 31 BUN 13 Creatinine 0.81 Glucose 68 L Calcium 9.2 Liver Function 01/28/23 Range/Units 09:09 Total Bilirubin 0.4 (0.2-1.0) mg/dl AST 16 (13-39) U/L ALT 12 (7-52) U/L Alkaline Phosphatase 60 (34-104) U/L Albumin 4.5 (3.4-5.0) gm/dl Diagnostic Findings Chest CTA 01/28/23 09:09 CT angio chest dissec wo/w con HISTORY: 57 years-old Female chest pain and stroke symptoms acute chest pain COMPARISON: CT abdomen and pelvis 10/25/2022 TECHNIQUE: CTA of the chest was obtained both with and without the use of IV contrast. 3-D coronal and sagittal maps were obtained and submitted for review. A dose lowering technique was used consistent with the principals of GENE. FINDINGS: CTA: No intramural or mediastinal hematoma. The heart is mildly enlarged. Trace pericardial effusion. No thoracic aortic aneurysm or dissection. The ascending thoracic aorta at the level of the main pulmonary artery measures 3.6 cm. The imaged great vessels appear patent. Unremarkable pulmonary artery. CT CHEST: Unremarkable thyroid. No lymphadenopathy. No pneumothorax, pleural effusion or pulmonary edema. 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 Additional bronchial atresia of the basal left lower lobe. The right lung is clear. No acute upper abdominal abnormality. There are a few subcentimeter hypodensities of the liver which are too small to characterize, likely cysts. Splenomegaly. Probable right renal cysts. Partially imaged mild left-sided hydronephrosis. On obstructing calculi left kidney measure up to 4 mm. Mild mid to distal esophageal wall thickening. IMPRESSION: 1. Left nephrolithiasis with partially imaged mild left-sided hydronephrosis. Correlation with renal ultrasound recommended along with KUB radiograph in order to exclude a ureteral calculus (specifically, conducting a CT abdomen and pelvis at this time would not be advised secondary to the IV contrast administered which would obscure a ureteral calculus). 2. Unremarkable thoracic aorta. No pulmonary emboli identified. 3. 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 4. Mild mid to distal esophageal wall thickening may represent esophagitis. ACT 112: Negative or not required by law. The above report was generated using voice recognition software. It may contain grammatical, syntax or spelling errors. Electronically signed by: Tony Saab M.D. 01/28/2023 10:[address] 01/28/23 09:09 CT angio head w con, CT head/brain wo con, CT angio neck with con CLINICAL HISTORY: 57 years-old Female with neuro deficit, acute stroke suspected. Acute stroke like symptoms COMPARISON STUDY: None TECHNIQUE: Unenhanced axial CT scan of the brain is performed. Subsequently, following the IV administration of 116 cc of Optiray, CT angiogram of the head and neck was performed from the arch to the skull apex. Images are reviewed in the axial, sagittal, and coronal planes. 3-D MIPS images are created and assessed. IV contrast was administered without complication. All measurements were obtained according to NASCET criteria. A dose lowering technique was utilized adhering to the principles of ALARA. CT DOSE: 1849.81 mGy.cm FINDINGS: CT BRAIN: There is no acute intracranial hemorrhage, midline shift, hydrocephalus, intracranial mass, territorial ischemia or abnormal extra-axial collections. No abnormal intra-axial or extra-axial enhancement. Mastoid air cells and middle ear cavities are clear. No calvarial fracture.. Unremarkable soft tissues. Complete opacification of the maxillary sinuses with moderate mucosal thickening of the sphenoid sinuses with air-fluid level.. Cerebrovascular calcifications. CT ANGIOGRAM OF THE HEAD AND NECK: Three-vessel morphology of the thoracic aortic arch. Patency of the innominate and image subclavian arteries. The internal carotid arteries are patent. The bilateral anterior and middle cerebral arteries are also patent. The vertebrobasilar system and posterior cerebral arteries are widely patent. There is no aneurysm, high-grade stenosis, or proximal branch occlusion identified. Dural sinuses appear patent. The lung apices are clear. Mild heterogeneity of the thyroid. Degenerative changes of the cervical spine. IMPRESSION: 1. No acute intracranial abnormality. 2. Unremarkable CTA of the head and neck. 3. Paranasal sinus disease as above with probable acute sphenoid sinusitis. ACT 112: Negative or not required by law. The above report was generated using voice recognition software. It may contain grammatical, syntax or spelling errors. Electronically signed by: Tony Saab M.D. 01/28/2023 9:51 AM Head CTA 01/28/23 09:09 CT angio head w con, CT head/brain wo con, CT angio neck with con CLINICAL HISTORY: 57 years-old Female with neuro deficit, acute stroke suspected. Acute stroke like symptoms COMPARISON STUDY: None TECHNIQUE: Unenhanced axial CT scan of the brain is performed. Subsequently, following the IV administration of 116 cc of Optiray, CT angiogram of the head and neck was performed from the arch to the skull apex. Images are reviewed in the axial, sagittal, and coronal planes. 3-D MIPS images are created and assessed. IV contrast was administered without complication. All measurements were obtained according to NASCET criteria. A dose lowering technique was utiliz ed adhering to the principles of ALARA. CT DOSE: 1849.81 mGy.cm FINDINGS: CT BRAIN: There is no acute intracranial hemorrhage, midline shift, hydrocephalus, intracranial mass, territorial ischemia or abnormal extra-axial collections. No abnormal intra-axial or extra-axial enhancement. Mastoid air cells and middle ear cavities are clear. No calvarial fracture.. Unremarkable soft tissues. Co mplete opacification of the maxillary sinuses with moderate mucosal thickening of the sphenoid sinuses with air-fluid level.. Cerebrovascular calcifications. CT ANGIOGRAM OF THE HEAD AND NECK: Three-vessel morphology of the thoracic aortic arch. Patency of the innominate and image subclavian arteries. The internal carotid arteries are patent. The bilateral anterior and middle cerebral arteries are also patent. The vertebrobasilar system and posterior cerebral arteries are widely patent. There is no aneurysm, high-grade stenosis, or proximal branch occlusion identified. Dural sinuses appear patent. The lung apices are clear. Mild heterogeneity of the thyroid. Degenerative changes of the cervical spine. IMPRESSION: 1. No acute intracranial abnormality. 2. Unremarkable CTA of the head and neck. 3. Paranasal sinus disease as above with probable acute sphenoid sinusitis. ACT 112: Negative or not required by law. The above report was generated using voice recognition software. It may contain grammatical, syntax or spelling errors. Electronically signed by: Tony Saab M.D. 01/28/2023 9:51 AM Neck CTA 01/28/23 09:09 CT angio head w con, CT head/brain wo con, CT angio neck with con CLINICAL HISTORY: 57 years-old Female with neuro deficit, acute stroke suspected. Acute stroke like symptoms COMPARISON STUDY: None TECHNIQUE: Unenhanced axial CT scan of the brain is performed. Subsequently, following the IV administration of 116 cc of Optiray, CT angiogram of the head and neck was performed from the arch to the skull apex. Images are reviewed in the axial, sagittal, and coronal planes. 3-D MIPS images are created and assessed. IV contrast was administered without complication. All measurements were obtained according to NASCET criteria. A dose lowering technique was utilized adhering to the principles of ALARA. CT DOSE: 1849.81 mGy.cm FINDINGS: CT BRAIN: There is no acute intracranial hemorrhage, midline shift, hydrocephalus, intracranial mass, territorial ischemia or abnormal extra-axial collections. No abnormal intra-axial or extra-axial enhancement. Mastoid air cells and middle ear cavities are clear. No calvarial fracture.. Unremarkable soft tissues. Complete opacification of the maxillary sinuses with moderate mucosal thickening of the sphenoid sinuses with air-fluid level.. Cerebrovascular calcifications. CT ANGIOGRAM OF THE HEAD AND NECK: Three-vessel morphology of the thoracic aortic arch. Patency of the innominate and image subclavian arteries. The internal carotid arteries are patent. The bilateral anterior and middle cerebral arteries are also patent. The vertebrobasilar system and posterior cerebral arteries are widely patent. There is no aneurysm, high-grade stenosis, or proximal branch occlusion identified. Dural sinuses appear patent. The lung apices are clear. Mild heterogeneity of the thyroid. Degenerative changes of the cervical spine. IMPRESSION: 1. No acute intracranial abnormality. 2. Unremarkable CTA of the head and neck. 3. Paranasal sinus disease as above with probable acute sphenoid sinusitis. ACT 112: Negative or not required by law. The above report was generated using voice recognition software. It may contain grammatical, syntax or spelling errors. Electronically signed by: Tony Saab M.D. 01/28/2023 9:51 AM Code Status & VTE Plan Code Status Full Code in the event of cardiac or respiratory arrest VTE Prophylaxis Plan VTE Prophylaxis will be ordered: Yes Supervising Physician Co-Signing Physician Notes Patient is a 57-year-old female with history of nephrolithiasis, chronic obstructive uropathy, hypothyroidism, complex migraine, PFO and other medical problems presents with history of balance issues resulting in ambulatory dysfunction, dizziness, difficulty with focusing, slow to respond, retrosternal chest tightness, chronic tinnitus concerning for possible CVA. Patient is currently recovering from an acute sinusitis infection and is on Keflex which she feels is much improved (had facial tenderness, sinus congestion). Patient's history is also obtained from patient's at bedside. He admits that patient had similar neurological symptoms (mental fogginess, slow to respond) with migraine attacks in the past. Patient was evaluated by telestroke while in ED. Initial CT scans showed no signs of acute CVA. MRI brain pending. Neurological symptoms improvement while in ED for patient. She denied any slurred speech, loss of consciousness, bowel or bladder incontinence, focal weakness/, numbness. Please review HPI for complete details of presentation. I personally reviewed imaging studies, EKG, blood work available at the time of admission. Physical Exam: Vitals signs as noted above General Appearance:Moderately built and nourished, no apparent distress Head: normocephalic, Atraumatic Eyes: normal inspection, EOMI Neck: supple, Trachea midline Respiratory/Chest: Normal breath sounds, CTA, No accessory muscle use Cardiovascular: S1, S2, No murmur Abdomen/GI:Soft, Non tender, Bowel sounds present Extremities/Musculoskeletal:normal inspection, no edema Neurologic/Psych:AAOX3, slow to respond, struggles with memory occasionally, + vestibulocochlear reflex impaired, left lower extremity 4/5 otherwise no focal deficits Skin: normal color, warm Strokelike symptoms R/O CVA DD: Complex/hemiplegic migraine, vestibular neuritis/labyrinthitis Received aspirin while in ED Recently had lipid panel as outpatient MRI brain pending Started on prednisone for possible labyrinthitis Neurochecks, PT OT, speech eval Started on aspirin 81 mg daily Fall precautions Continue antibiotics for sinusitis Consider starting Lipitor once MRI available Chest pain PACs H/O PFO Atypical Patient/family reports intermittent ongoing chest pain since many months. Trend cardiac enzymes Echo pending Consider cardiology evaluation if needed Possible esophagitis Started on PPI Chronic obstructive uropathy Nephrolithiasis Renal ultrasound pending Bladder scan as needed I personally reviewed the record. Patient is interviewed and examined at bedside. Patient's care is coordinated with Rhona DUBON. Please refer to the documentation above for details of patient's presentation and for discussion of other issues. (3) Sinusitis Chronicity: acute Recurrence: not specified as recurrent Sinusitis location: sphenoidal Qualified Code(s): J01.30 - Acute sphenoidal sinusitis, unspecified
[2023-01-28] MEDS ORDERED: FLUTICASONE PROPIONATE NA SPR 16 GM BTL PRN (11:17)
[2023-01-28] MEDS: ENOXAPARIN INJ 40 MG/0.4 ML SYR SQ SCH (12:31)
[2023-01-28] MEDS: predniSONE 20 MG TAB PO SCH (12:31)
--- NOTE | 2023-01-28 12:45 | Magnetic Resonance Report ---
MR brain wo con CLINICAL HISTORY: Strokelike symptoms TECHNIQUE: Multiplanar and multisequence MR images of the brain were obtained without intravenous con trast. Comparison: Comparison is made to CTA head and neck 01/28/2023 FINDINGS: No abnormal restricted diffusion is identified. The white matter is unremarkable. The ventricular sys tem is normal in appearance. No mass is seen. There is no mass effect or midline shift. There is no e vidence of acute intraparenchymal hemorrhage. No extra axial fluid collections are seen. The corpus c allosum, pituitary gland, and cerebellar tonsils appear grossly unremarkable. Flow voids of the major intracranial arterial vessels are identified. Sinus mucosal thickening is see n most prominent in the bilateral maxillary sinuses. IMPRESSION: No acute abnormality and in particular no evidence of acute infarct. Sinus disease is noted. ACT 112: Negative or not required by law. Electronically signed by: Darian Victor M.D. 01/28/2023 12:44 PM
--- NOTE | 2023-01-28 14:12 | Electrocardiogram Report ---
Test Reason : Blood Pressure : / mmHG Vent. Rate : 071 BPM Atrial Rate : 071 BPM P-R Int : 162 ms QRS Dur : 110 ms QT Int : 414 ms P-R-T Axes : 045 017 034 degrees QTc Int : 449 ms Sinus rhythm with Premature atrial complexes with Aberrant conduction Low voltage QRS Incomplete right bundle branch block Borderline ECG When compared with ECG of 03-JUL-2018 21:21, Aberrant conduction is now Present Confirmed by Ash Steven ([id number]) on 01/28/2023 2:11:56 PM Referred By: REFERRED SELF Confirmed By:Mark Steven
--- NOTE | 2023-01-28 14:56 | XRay Report ---
XR KUB/Abdomen 1 view CLINICAL HISTORY: left hydronephrosis TECHNIQUE: 1 view of the abdomen was obtained. Comparison: Comparison is made to abdomen radiograph 10/16/[address] abdomen pelvis 10/25/2022 FINDINGS: Contrast is noted in the bilateral collecting systems and bladder. The osseous structures are grossly unremarkable. The bowel gas pattern is nonobstructive. A moderate amount of stool is noted within th e large bowel. IMPRESSION: No hydronephrosis. ACT 112: Negative or not required by law. Electronically signed by: Darian Victor M.D. 01/28/2023 2:54 PM
[2023-01-28 15:11] LABS: Appearance Urine Clear (Clear); Bilirubin Urine Negative (Negative); Blood Urine Negative (Negative); Color Urine Yellow; Glucose Urine UA Negative (Negative); Ketones Urine Negative (Negative); Leukocyte Esterase Urine Negative (Negative); Nitrite Urine Negative (Negative); Protein Urine Negative (Negative); Specific Gravity Urine > 1.045 (1.000-1.030); Urobilinogen Urine Negative (Negative)
--- NOTE | 2023-01-28 15:13 | Ultrasound Report ---
RENAL ULTRASOUND HISTORY: Renal calculi with left-sided hydronephrosis Hydranephrosis COMPARISON: CTA chest and KUB studies of same day, CT abdomen and pelvis 10/25/2022. FINDINGS: Right kidney: 10.5 cm. No hydronephrosis. Cyst of the interpolar right kidney, 9 mm. Nonobstructing c alculi measure up to 4 mm. Normal corticomedullary differentiation and cortical thickness. Left kidney: 10.5 cm. Mild left-sided hydronephrosis redemonstrated. Left renal calculi measuring up to 7 mm. Normal corticomedullary differentiation and cortical thickness. Bladder: No bladder wall thickening. The bilateral ureteral jets were not identified. IMPRESSION: 1. Mild left-sided hydronephrosis again noted which is also seen on the CTA chest and KUB studies of same day. Also noted there is left ureteral dilation to the level of the pelvis on the same day KUB. Findings may be secondary to an obstructing ureteral calculus which is not visualized. 2. Bilateral nephrolithiasis. ACT 112: Negative or not required by law. Electronically signed by: Tony Saab M.D. 01/28/2023 3:12 PM
--- NOTE | 2023-01-28 16:43 | Neurology Consultation ---
Date of Consultation January 28, 2023 Assessment & Plan (1) Vertigo: Suspect BPPV vs also possible viral labyrinthitis- however notably she reports tinnitus ongoing prior to this event If symptoms persist or recur -recommend MRI brain to be performed again both with and without contrast Await PT evaluation- may benefit from vestibular training Continue to monitor/treat symptoms using antiemetic, consider benzodiazepine usage if ineffective Continue to monitor for s/s of GERD as could could explain/contribute to both vertigo sensation and chest pain (2) Sinusitis: Continue antimicrobial therapy Continue to monitor symptoms (3) Hypothyroidism: Continue levothyroxine Monitor symptoms when taking medication on empty stomach Plan Follow up with outpatient neurology on as needed basis Telehealth Consultation Telehealth Information Telehealth Information: I performed this visit using a real-time telehealth connection between my location and the patients location ([facility]). After connecting through interactive tele-video, patient was identified by name and date of and/or wristband check.Patient (or authorized healthcare associate financial representative) was informed that this was a telemedicine visit and it was being conducted confidentially over secure lines. My office door was closed and no one else was present in the room with me.Patient (or authorized healthcare associate financial representative) provided consent to proceed with the visit, expressed an understanding of privacy and security of the telemedicine visit, and gave permission to have a hospital associate financial representative in the room in order to assist with the visit and to conduct portions of the visit, as needed. I informed the patient (or authorized healthcare associate financial representative) that I reviewed their record and presented the opportunity for them to ask any questions regarding the visit today. The patient agreed to participate. History of Present Illness Reason for Consultation: Vertigo Requesting Physician: Dr. Joy Attending Physician: Yogi Joy MD History of Present Illness 57yo female reports ongoing antimicrobial therapy for recent sinus infection diagnosis awoke this am without any issue took her recently newly prescribed levothyroxine on empty stomach then went to work and ate more oatmeal than usual because she had to take her antibiotic then afterward felt sudden onset vertiginous feelings of room floor and ceiling moving. She reports associated chest pain at time of event as well. Arrived to ER underwent CT brain without contrast and CT angiographic studies fortunately revealing no evidence of hemorrhage or large vessel occlusion. Oncall stroke neurology recommended co ntinued workup for suspected peripheral etiology. She has undergone an MRI brain without contrast revealing no evidence of acute intracranial pathology. Performed televideo consultation. Patient able to answer all questions and provide adequate history as above. She also notes feeling a sense of "brain fog" that she associates with her migraine headaches. No reported cephalgia or cervicalgia at this time. She reports much improvement in symptoms but still does not feel back to her baseline. She denies painful ear sensation or ear fullness. Denies chest pain/palpitations or shortness of breath at this time. She reports ongoing tinnitus and visual changes/decreased acuity that resolves when covering one eye. There is no concern at this time for seizure like activity or paresthesia. She denies recent fevers chills nausea vomiting changes in bowels or bladder. She does report that she had traveled recently and arrived home late Wednesday night but only felt tired yesterday. Allergies Allergy/AdvReac Type Severity Reaction Status Date / Time azithromycin [From Zithromax] Allergy Severe Hives Verified 01/28/23 10:13 dihydroergotamine Allergy Severe "THROAT Verified 01/28/23 10:13 SHUTS DOWN" ketorolac Allergy Intermediate HIVES Verified 01/28/23 14:34 Penicillins Allergy Intermediate Hives Verified 01/28/23 10:13 Home Medications Medication Instructions Recorded Confirmed Type ascorbic acid (vitamin C) 500 mg 500 mg PO QAM 11/11/17 01/28/23 History tablet (Vitamin C) conjugated estrogens 0.625 mg/gram 1 applic vaginal 2XWK 11/11/17 01/28/23 History vaginal cream (Premarin) fluticasone propionate 50 1 spray intranasal DAILY PRN 11/11/17 01/28/23 History mcg/actuation nasal Allergy Symptoms spray,suspension (Flonase Allergy Relief) folic acid 400 mcg tablet 400 mcg PO QAM 11/11/17 01/28/23 History lysine 500 mg tablet (L-Lysine) 500 mg PO DAILY PRN Cold Sore(s) 11/11/17 01/28/23 History selenium 200 mcg tablet (SelenoMax) 200 mcg PO QAM PRN illness 11/11/17 01/28/23 History sennosides 8.6 mg-docusate sodium 1 tab PO BID PRN Constipation 11/11/17 01/28/23 History 50 mg tablet (Senna-S) sumatriptan succinate 100 mg 100 mg PO UD PRN Migraine Headache 11/11/17 01/28/23 History tablet (Imitrex) cholecalciferol (vitamin D3) 125 5,000 units PO QAM 07/03/18 01/28/23 History mcg (5,000 unit) tablet (Vitamin D3) meperidine (PF) 100 mg/mL 1 ml IM DIRECTED PRN Migraine 07/03/18 01/28/23 History injection solution Headache multivitamin (Multiple Vitamins 1 tab PO QAM 07/03/18 01/28/23 History tablet) ondansetron 4 mg disintegrating 4 mg PO Q6H PRN nausea and 09/07/20 01/28/23 Rx tablet vomiting #20 tabs ibuprofen 800 mg tablet 800 mg PO DIRECTED PRN Pain 09/26/20 01/28/23 History phenazopyridine 100 mg tablet 100 mg PO TID PRN bladder spasms 10/04/20 01/28/23 Rx (Pyridium) #10 tabs galcanezumab-gnlm 120 mg/mL 120 mg subcut MONTHLY 10/25/22 01/28/23 History subcutaneous syringe (Emgality) cephalexin 500 mg capsule 500 mg PO BID 01/28/23 01/28/23 History levothyroxine 25 mcg tablet 25 mcg PO QAM 01/28/23 01/28/23 History Patient History Medical History Hypothyroidism Acute viral labyrinthitis Stroke-like symptoms Hydronephrosis Calculus of distal right ureter Right ureteral stone Hydronephrosis, right Osteoporosis Lyme disease History of kidney stones Patent foramen ovale (07/27/12) Migraine headache Surgical History H/O bilateral oophorectomy History of hysterectomy Family History Mother Cervical cancer Social History Smoking Status: Never smoker Hx Alcohol Use: No Hx Substance Use: No Preferred Language: Persian Communication Ability: Effective Trust Officer Required: No Beliefs That Will Affect Care: None Current Living Situation: Spouse Other Information That Helps Us Care for You: Yes Feels Safe at Home: Yes Safety Concerns: Feels Safe At This Time Assistive Devices: Glasses Physical Exam Neurological Examination: Mental Status: Awake and alert. Oriented to person, place, and time. Fluency naming repetition and comprehension appear grossly intact. Affect remains appropriate. CN testing: I: Denies changes in ability to smell II:Reports no changes in visual acuity III/IV/: No evidence of gaze preference, hippus, nystagmus or roving eye movements V: Facial sensation reportedly grossly intact to light touch bilaterally VII: Facial movements appear without evidence of asymmetry VIII: Hearing appears grossly intact to loud voice bilaterally IX/X: Palate appears to elevate symmetrically XI: Shoulder shrug appears symmetric/ grossly intact bilaterally XII: Tongue protrudes midline without evidence of biting Motor exam: Strength appears grossly intact/symmetric in all extremities Sensory: Sensation is reportedly grossly intact throughout Coordination: Finger to nose and heel to valle were intact. No apparent evidence of dysmetria or dysdiadochokinesia Reflexes: Deferred Gait: Deferred Results & Data Vital Signs (Past 12 Hours) Vital Signs Temp Pulse Pulse Resp BP BP Pulse Ox 01/28/23 15:16 36.5 C 74 17 116/77 97 01/28/23 14:52 78 21 121/86 98 01/28/23 13:00 68 18 128/71 99 01/28/23 12:30 68 13 114/68 98 01/28/23 11:30 64 14 117/81 99 01/28/23 11:00 124/78 01/28/23 11:00 69 16 99 01/28/23 10:45 139/92 01/28/23 10:45 73 17 98 01/28/23 10:30 71 16 98 01/28/23 10:30 128/86 01/28/23 10:17 81 20 97 01/28/23 10:15 70 22 97 01/28/23 10:15 115/81 01/28/23 10:02 72 19 01/28/23 09:45 133/88 01/28/23 09:45 72 17 99 01/28/23 09:44 71 15 99 01/28/23 09:44 142/93 H 01/28/23 09:33 82 16 98 01/28/23 09:33 78 01/28/23 09:32 82 18 137/89 99 01/28/23 08:58 36.7 C 78 17 128/89 99 O2 Del Method 01/28/23 15:16 Room Air 01/28/23 14:52 Room Air 01/28/23 13:00 Room Air 01/28/23 12:30 Room Air 01/28/23 11:30 Room Air 01/28/23 11:00 01/28/23 11:00 01/28/23 10:45 01/28/23 10:45 01/28/23 10:30 01/28/23 10:30 01/28/23 10:17 Room Air 01/28/23 10:15 01/28/23 10:15 01/28/23 10:02 01/28/23 09:45 01/28/23 09:45 01/28/23 09:44 01/28/23 09:44 01/28/23 09:33 01/28/23 09:33 01/28/23 09:32 Room Air 01/28/23 08:58 Room Air Laboratory Results Abnormal lab results 01/28/23 01/28/23 01/28/23 Range/Units 09:09 09:21 14:10 WBC 4.44 L (4.8-10.8) K/ul Lymph # (Auto) 0.90 L (1.20-3.40) K/uL Glucose 68 L (70-99(Fasting)) mg/dl POC Ioniz Calcium Mike 1.09 L (1.12-1.32) mmol/l Urine pH 8.0 H (4.5-7.5) Ur Specific Pine > 1.045 H (1.000-1.030) Diagnostic Findings Head CT 01/28/23 09:09 CT angio head w con, CT head/brain wo con, CT angio neck with con CLINICAL HISTORY: 57 years-old Female with neuro deficit, acute stroke suspected. Acute stroke like symptoms COMPARISON STUDY: None TECHNIQUE: Unenhanced axial CT scan of the brain is performed. Subsequently, following the IV administration of 116 cc of Optiray, CT angiogram of the head and neck was performed from the arch to the skull apex. Images are reviewed in the axial, sagittal, and coronal planes. 3-D MIPS images are created and assessed. IV contrast was administered without complication. All measurements were obtained according to NASCET criteria. A dose lowering technique was utilized adhering to the principles of ALARA. CT DOSE: 1849.81 mGy.cm FINDINGS: CT BRAIN: There is no acute intracranial hemorrhage, midline shift, hydrocephalus, intracranial mass, territorial ischemia or abnormal extra-axial collections. No abnormal intra-axial or extra-axial enhancement. Mastoid air cells and middle ear cavities are clear. No calvarial fracture.. Unremarkable soft tissues. Complete opacification of the maxillary sinuses with moderate mucosal thickening of the sphenoid sinuses with air-fluid level.. Cerebrovascular calcifications. CT ANGIOGRAM OF THE HEAD AND NECK: Three-vessel morphology of the thoracic aortic arch. Patency of the innominate and image subclavian arteries. The internal carotid arteries are patent. The bilateral anterior and middle cerebral arteries are also patent. The vertebrobasilar system and posterior cerebral arteries are widely patent. There is no aneurysm, high-grade stenosis, or proximal branch occlusion identified. Du ral sinuses appear patent. The lung apices are clear. Mild heterogeneity of the thyroid. Degenerative changes of the cervical spine. IMPRESSION: 1. No acute intracranial abnormality. 2. Unremarkable CTA of the head and neck. 3. Paranasal sinus disease as above with probable acute sphenoid sinusitis. ACT 112: Negative or not required by law. The above report was generated using voice recognition software. It may contain grammatical, syntax or spelling errors. Electronically signed by: Tony Saab M.D. 01/28/2023 9:51 AM Head CTA 01/28/23 09:09 CT angio head w con, CT head/brain wo con, CT angio neck with con CLINICAL HISTORY: 57 years-old Female with neuro deficit, acute stroke suspected. Acute stroke like symptoms COMPARISON STUDY: None TECHNIQUE: Unenhanced axial CT scan of the brain is performed. Subsequently, following the IV administration of 116 cc of Optiray, CT angiogram of the head and neck was performed from the arch to the skull apex. Images are reviewed in the axial, sagittal, and coronal planes. 3-D MIPS images are created and assessed. IV contrast was administered without complication. All measurements were obtained according to NASCET criteria. A dose lowering technique was utilized adhering to the principles of ALARA. CT DOSE: 1849.81 mGy.cm FINDINGS: CT BRAIN: There is no acute intracranial hemorrhage, midline shift, hydrocephalus, intracranial mass, territorial ischemia or abnormal extra-axial collections. No abnormal intra-axial or extra-axial enhancement. Mastoid air cells and middle ear cavities are clear. No calvarial fracture.. Unremarkable soft tissues. Complete opacification of the maxillary sinuses with moderate mucosal thickening of the sphenoid sinuses with air-fluid level.. Cerebrovascular calcifications. CT ANGIOGRAM OF THE HEAD AND NECK: Three-vessel morphology of the thoracic aortic arch. Patency of the innominate and image subclavian arteries. The internal carotid arteries are patent. The bilateral anterior and middle cerebral arteries are also patent. The vertebrobasilar system and posterior cerebral arteries are widely patent. There is no aneurysm, high-grade stenosis, or proximal branch occlusion identified. Dural sinuses appear patent. The lung apices are clear. Mild heterogeneity of the thyroid. Degenerative changes of the cervical spine. IMPRESSION: 1. No acute intracranial abnormality. 2. Unremarkable CTA of the head and neck. 3. Paranasal sinus disease as above with probable acute sphenoid sinusitis. ACT 112: Negative or not required by law. The above report was generated using voice recognition software. It may contain grammatical, syntax or spelling errors. Electronically signed by: Tony Saab M.D. 01/28/2023 9:51 AM Neck CTA 01/28/23 09:09 CT angio head w con, CT head/brain wo con, CT angio neck with con CLINICAL HISTORY: 57 years-old Female with neuro deficit, acute stroke suspected. Acute stroke like symptoms COMPARISON STUDY: None TECHNIQUE: Unenhanced axial CT scan of the brain is performed. Subsequently, following the IV administration of 116 cc of Optiray, CT angiogram of the head and neck was performed from the arch to the skull apex. Images are reviewed in the axial, sagittal, and coronal planes. 3-D MIPS images are created and assessed. IV contrast was administered without complication. All measurements were obtained according to NASCET criteria. A dose lowering technique was utilized adhering to the principles of ALARA. CT DOSE: 1849.81 mGy.cm FINDINGS: CT BRAIN: There is no acute intracranial hemorrhage, midline shift, hydrocephalus, intracranial mass, territorial ischemia or abnormal extra-axial collections. No abnormal intra-axial or extra-axial enhancement. Mastoid air cells and middle ear cavities are clear. No calvarial fracture.. Unremarkable soft tissues. Complete opacification of the maxillary sinuses with moderate mucosal thickening of the sphenoid sinuses with air-fluid level.. Cerebrovascular calcifications. CT ANGIOGRAM OF THE HEAD AND NECK: Three-vessel morphology of the thoracic aortic arch. Patency of the innominate and image subclavian arteries. The internal carotid arteries are patent. The bilateral anterior and middle cerebral arteries are also patent. The vertebrobasilar system and posterior cerebral arteries are widely patent. There is no aneurysm, high-grade stenosis, or proximal branch occlusion identified. Dural sinuses appear patent. The lung apices are clear. Mild heterogeneity of the thyroid. Degenerative changes of the cervical spine. IMPRESSION: 1. No acute intracranial abnormality. 2. Unremarkable CTA of the head and neck. 3. Paranasal sinus disease as above with probable acute sphenoid sinusitis. ACT 112: Negative or not required by law. The above report was generated using voice recognition software. It may contain grammatical, syntax or spelling errors. Electronically signed by: Tony Saab M.D. 01/28/2023 9:51 AM Brain MRI 01/28/23 09:57 MR brain wo con CLINICAL HISTORY: Strokelike symptoms TECHNIQUE: Multiplanar and multisequence MR images of the brain were obtained without intravenous contrast. Comparison: Comparison is made to CTA head and neck 01/28/2023 FINDINGS: No abnormal restricted diffusion is identified. The white matter is unremarkable. The ventricular system is normal in appearance. No mass is seen. There is no mass effect or midline shift. There is no evidence of acute intraparenchymal hemorrhage. No extra axial fluid collections are seen. The corpus callosum, pituitary gland, and cerebellar tonsils appear grossly unremarkable. Flow voids of the major intracranial arterial vessels are identified. Sinus mucosal thickening is seen most prominent in the bilateral maxillary sinuses. IMPRESSION: No acute abnormality and in particular no evidence of acute infarct. Sinus disease is noted. ACT 112: Negative or not required by law. Electronically signed by: Darian Victor M.D. 01/28/2023 12:44 PM Medications Administered Home Medications Medication Instructions Recorded Confirmed Last Taken ascorbic acid (vitamin C) 500 mg 500 mg PO QAM 11/11/17 01/28/23 10/25/22 tablet (Vitamin C) conjugated estrogens 0.625 mg/gram 1 applic vaginal 2XWK 11/11/17 01/28/23 10/25/22 vaginal cream (Premarin) fluticasone propionate 50 1 spray intranasal DAILY PRN 11/11/17 01/28/23 09/02/20 mcg/actuation nasal Allergy Symptoms spray,suspension (Flonase Allergy Relief) folic acid 400 mcg tablet 400 mcg PO QAM 11/11/17 01/28/23 10/25/22 lysine 500 mg tablet (L-Lysine) 500 mg PO DAILY PRN Cold Sore(s) 11/11/17 01/28/23 Unknown selenium 200 mcg tablet (SelenoMax) 200 mcg PO QAM PRN illness 11/11/17 01/28/23 10/25/22 sennosides 8.6 mg-docusate sodium 1 tab PO BID PRN Constipation 11/11/17 01/28/23 10/25/22 50 mg tablet (Senna-S) sumatriptan succinate 100 mg 100 mg PO UD PRN Migraine Headache 11/11/17 01/28/23 10/25/22 tablet (Imitrex) cholecalciferol (vitamin D3) 125 5,000 units PO QAM 07/03/18 01/28/23 10/25/22 mcg (5,000 unit) tablet (Vitamin D3) meperidine (PF) 100 mg/mL 1 ml IM DIRECTED PRN Migraine 07/03/18 01/28/23 Unknown injection solution Headache multivitamin (Multiple Vitamins 1 tab PO QAM 07/03/18 01/28/23 10/25/22 tablet) ondansetron 4 mg disintegrating 4 mg PO Q6H PRN nausea and 09/07/20 01/28/23 Unknown tablet vomiting #20 tabs ibuprofen 800 mg tablet 800 mg PO DIRECTED PRN Pain 09/26/20 01/28/23 09/26/20 phenazopyridine 100 mg tablet 100 mg PO TID PRN bladder spasms 10/04/20 01/28/23 Unknown (Pyridium) #10 tabs galcanezumab-gnlm 120 mg/mL 120 mg subcut MONTHLY 10/25/22 01/28/23 1 Month Ago subcutaneous syringe (Emgality) ~09/24/22 cephalexin 500 mg capsule 500 mg PO BID 01/28/23 01/28/23 Unknown levothyroxine 25 mcg tablet 25 mcg PO QAM 01/28/23 01/28/23 Unknown Active Medications Generic Name Dose Route Start Last Admin Trade Name Freq PRN Reason Stop Dose Admin Enoxaparin Sodium 40 mg 01/28/23 10:30 01/28/23 12:31 Enoxaparin Inj 40 Mg/0.4 Ml Syr SQ 02/27/23 10:29 40 mg QAM PETRA Administration Dextrose/Sodium Chloride 1,000 mls @ 75 mls/hr 01/28/23 10:30 01/28/23 12:31 D5w And Nss IV 01/28/23 23:49 75 mls/hr .[id number] PETRA Administration Prednisone 60 mg 01/28/23 10:30 01/28/23 12:31 Prednisone 20 Mg Tab PO 03/03/23 09:00 60 mg DAILY PETRA Administration (2) Sinusitis Chronicity: acute Recurrence: not specified as recurrent Sinusitis location: sphenoidal Qualified Code(s): J01.30 - Acute sphenoidal sinusitis, unspecified
[2023-01-28] MEDS ORDERED: DOCUSATE SODIUM 100 MG CAP PO PRN (18:34)
[2023-01-28] MEDS ORDERED: cephALEXin 250 MG CAP PO SCH (21:00)
[2023-01-29 06:17] LABS: Hemoglobin 12.1 g/dl (12.0-16.0); Mean Corpuscular Hemoglobin 30.1 pg (25.0-34.0); Mean Corpuscular Hgb Conc 33.6 g/dL (32.0-36.0); Mean Corpuscular Volume 89.6 fL (80.0-100.0); Mean Platelet Volume 9.9 fL (9.4-12.4); Platelet Count 187 K/uL (130-400); RDW Coefficient of Variation 12.1 % (11.5-14.5); RDW Standard Deviation 39.7 fL (36.4-46.3); Red Blood Count 4.02 M/uL (4.20-5.40)
[2023-01-29] MEDS ORDERED: LEVOTHYROXINE SODIUM 25 MCG TABLET PO SCH (06:30)
[2023-01-29 06:42] LABS: Albumin Globulin Ratio 1.7 (0.9-2); Albumin Level 3.7 gm/dl (3.4-5.0); Bilirubin,Total 0.3 mg/dl (0.2-1.0); Calcium 8.5 mg/dl (8.6-10.3); Creatinine Clr Calc Pharmacy 70.6 ml/min; Est GFR (African American) 101.8 ml/min; Est GFR (Non-African American) 87.9 ml/min; Globulin 2.2 gm/dl (2.5-4.0); Potassium 4.2 mmol/L (3.5-5.1); Total Protein 5.9 gm/dl (6.0-8.3)
[2023-01-29] MEDS: CHOLECALCIFEROL 5,000 UNITS 125 MCG TAB PO SCH (08:56)
[2023-01-29] MEDS: ASPIRIN 81 MG ECTAB PO SCH (08:56)
[2023-01-29] MEDS: ENOXAPARIN INJ 40 MG/0.4 ML SYR SQ SCH (08:56)
[2023-01-29] MEDS: ASCORBIC ACID 500 MG TAB PO SCH (08:56)
[2023-01-29] MEDS: FOLIC ACID 400 MCG TAB PO SCH (08:57)
[2023-01-29] MEDS: PANTOprazole 40 MG TAB PO SCH (08:57)
[2023-01-29] MEDS: predniSONE 20 MG TAB PO SCH (08:57)
[2023-01-29] MEDS ORDERED: cefTRIAXone SODIUM 2,000 MG in DEXTROSE 5 % MINI-B 50 ML IV SCH (12:30)
[2023-01-29] MEDS: ONDANSETRON INJ 2 MG/ML 2 ML VIAL IV PRN (17:17)
--- NOTE | 2023-01-29 17:37 | Electrocardiogram Report ---
Test Reason : Blood Pressure : / mmHG Vent. Rate : 088 BPM Atrial Rate : 088 BPM P-R Int : 166 ms QRS Dur : 126 ms QT Int : 380 ms P-R-T Axes : 059 025 040 degrees QTc Int : 459 ms Normal sinus rhythm Right bundle branch block Abnormal ECG When compared with ECG of 28-JAN-2023 09:14, Aberrant conduction is no longer Present Confirmed by Ash Steven ([id number]) on 01/29/2023 5:37:18 PM Referred By: REFERRED SELF Confirmed By:Mark Steven
[2023-01-29] MEDS ORDERED: SUMAtriptan succinate 25 MG TAB PO STA (18:04)
--- NOTE | 2023-01-29 18:30 | Hospitalist Progress Note ---
Date of Service January 29, 2023 Assessment & Plan (1) Stroke-like symptoms: (2) Acute viral labyrinthitis: (3) Sinusitis: (4) Migraine headache: (5) Patent foramen ovale: (6) Hypothyroidism: Plan Patient is a 57-year-old female with history of nephrolithiasis, chronic obst ructive uropathy, hypothyroidism, complex migraine, PFO who presented with history of balance issues resulting in ambulatory dysfunction, dizziness, difficulty with focusing, retrosternal chest tightness, chronic tinnitus concerning for possible CVA. Stroke-Like Symptoms: Presented with dizziness, difficulty with focusing, retrosternal chest tightness, chronic tinnitus Head CT and brain MRI w/o contrast without signs of stroke Head and neck CTA suggesting complete opacification of maxillary sinuses and infection in the sphenoid sinus as well Received aspirin while in ED Recently had lipid panel as outpatient, recent lipid panel from 01/12/23: TG 83, LDL 175, HDL 62 AM [id number] Neurochecks, PT OT, speech eval Neuro consult-appreciate recs -believes related to BPPV vs also possible viral labyrinthitis. -repeat brain MRI if symptoms persist, this time w and w/o contrast -consider benzo for treatment if symptoms severe Valium ordered q12h PRN Repeat MRI with and without contrast ordered Symptoms suggestive of vestibular labyrinthitis, though complex migraine also on differential PT for vestibular training Continue Prednisone, aspirin, prn meclizine. Atorvastatin 20mg added Given persistence and severity of symptoms, consider lumbar puncture. Consider ENT consult Maxillary and Sphenoidal Sinusitis Pt notes she had URI symptoms before starting treatment for sinusitis with Keflex Head and neck CTA suggesting complete opacification of maxillary sinuses and infection in the sphenoid sinus as well Keflex was switched to Rocephin on admission, abx broadened even further for pseudomonal coverage with cefepime Biofire ordered to rule out an underlying viral infection-negative Consider ENT consult Lyme Infection Pt with positive IgG, indicating past infection Noted that this was positive as well in 2019 Given current symptoms, started on doxycycline once more empirically while further testing pending Chest pain PACs H/O PFO Esophagitis Atypical Patient/family reports intermittent ongoing chest pain for many months. EKG with NSR, RBBB Troponins have remained normal Echo noting atrial septal aneurysm with small R to left shunt, recommending daily aspirin for stroke prophylaxis. Chest CTA noting esophagitis, possible cause of her chest pain. Started on pantoprazole, continue Consider cardiology consult Consider GI consult/outpt followup for possible EGD for esophagitis Chronic obstructive uropathy Nephrolithiasis Hydronephrosis Pt currently asymptomatic CTA chest noting partially seen left sided 4mm obstructive stone and mild hydronephrosis KUB read as no hydronephrosis Renal ultrasound confirming left sided obstruction and hydronephrosis, question of left ureteral dilation CT abd/pelvis not recommended at that time by radiology due to previous contrast use Continue to monitor kidney Consider Urology consult Constipation Moderate amount of stool noted on KUB Scheduled colace, has prn Miralax and Milk of Mag ordered Continue to monitor Hemiplegic and complex migraines: Chronic stable Has chronic auras and notes numbness and dizziness associated with these symptoms Takes sumatriptan and Emgality subcu monthly Consider Migraine cocktail with Toradol, Compazine and Benadryl while here PRN imitrex Hypothyroidism: Chronic stable Recent diagnosis as of last month Started on levothyroxine, pt concerned that the new medication might be contributing to her symptoms. Discontinued, AM TSH ordered Code Status: Full Code VTE Prophylaxis: Lovenox SQ Diet: HH Dispo: PT/OT ordered, appreciate recs Admission and Anticipated Discharge Date Admission Date: January 28, 2023 Subjective Pt seen with nurse and at bedside. States that her symptoms are a little better but still present. Notes she was having brain fog. Notes she is unsteady on her feet and per nursing had an episode of emesis later in the day with headache, requesting migraine medication. Review of Systems Review of Systems: All systems reviewed & are unremarkable except as noted in Subjective Physical Exam Physical Exam: General: Alert, oriented. No acute distress Skin: No noted rashes or bruises Psych: Appropriate mood and affect Neuro: No gross deficits HEENT: NC/AT Chest: Nontender to palpation. CV: RRR, Normal s1, s2. Resp: Breath sounds clear bilaterally, no increased effort of breathing. Abdomen: soft, nontender, nondistended. Extremities: No edema in lower extremities bilaterally. Results & Data Results & Data Vital Signs (Past 12 Hours) Vital Signs Temp Pulse Pulse Resp BP Pulse Ox O2 Del Method 01/29/23 16:00 111 H 01/29/23 15:43 36.4 C L 84 18 115/84 96 Room Air 01/29/23 11:32 36.6 C 91 H 16 122/74 96 Room Air 01/29/23 08:01 36.7 C 74 17 114/72 96 Room Air 01/29/23 08:00 70 (3) Sinusitis Chronicity: acute Recurrence: not specified as recurrent Sinusitis location: sphenoidal Qualified Code(s): J01.30 - Acute sphenoidal sinusitis, unspecified
[2023-01-29] MEDS: CEFEPIME 2,000 MG in SYRINGE 0 ML IV SCH (19:33)
[2023-01-29] MEDS ORDERED: MoRPHine SULFATE 2 MG/ML CARP IV STA (19:47)
[2023-01-29] MEDS ORDERED: METOCLOPRAMIDE HCL INJ 5 MG/ML 2 ML VIAL IV STA (19:47)
[2023-01-29] MEDS ORDERED: PROMETHAZINE HCL 12.5 MG in SODIUM CHLORIDE 0.9% 50 ML IV PRN (19:48)
[2023-01-29] MEDS ORDERED: oxyCODONE HCL IR 5 MG TAB (IMMEDIATE RELEASE) PO PRN (19:48)
[2023-01-29] MEDS ORDERED: MoRPHine SULFATE 4 MG/ML 1 ML CARP\\VIAL IV PRN (19:56)
[2023-01-29] MEDS ORDERED: MoRPHine SULFATE 2 MG/ML CARP IV PRN (20:33)
[2023-01-29 21:08] LABS: Procalcitonin < 0.05 ng/ml (0-0.5)
[2023-01-29 21:15] LABS: Lyme Ab IgG w/WB Rflx Positive (Negative); Lyme Ab IgM w/WB Rflx Negative (Negative)
[2023-01-29 21:21] LABS: Adenovirus PCR Not Detected (NotDetected); Bordetella parapertussis PCR Not Detected (NotDetected); Bordetella pertussis PCR Not Detected (NotDetected); Chlamydia pneumoniae PCR Not Detected (NotDetected); Coronavirus 229E PCR Not Detected (NotDetected); Coronavirus CoV-2 (COVID19)PCR Not Detected (NotDetected); Coronavirus HKU1 PCR Not Detected (NotDetected); Coronavirus NL63 PCR Not Detected (NotDetected); Coronavirus OC43PCR Not Detected (NotDetected); Human Metapneumovirus PCR Not Detected (NotDetected); Influenza A PCR Not Detected (NotDetected); Influenza B PCR Not Detected (NotDetected); Mycoplasma pneumoniae PCR Not Detected (NotDetected); Parainfluenza Virus 1 PCR Not Detected (NotDetected); Parainfluenza Virus 2 PCR Not Detected (NotDetected); Parainfluenza Virus 3 PCR Not Detected (NotDetected); Parainfluenza Virus 4 PCR Not Detected (NotDetected); Respiratory Syncytial VirusPCR Not Detected (NotDetected); Rhinovirus/Enterovirus PCR Not Detected (NotDetected)
[2023-01-30] MEDS ORDERED: diazePAM 2 MG TABLET PO PRN (01:49)
[2023-01-30] MEDS: CEFEPIME 2,000 MG in SYRINGE 0 ML IV SCH ×3 (02:32→18:45)
[2023-01-30] MEDS: DOXYCYCLINE HYCLATE 100 MG CAP PO SCH ×3 (02:32→21:48)
[2023-01-30 07:12] LABS: Basophils # (auto) 0.03 K/uL (0.00-0.20); Basophils % (auto) 0.6 %; Eosinophils # (auto) 0.02 K/uL (0.00-0.50); Eosinophils % (auto) 0.4 %; Hematocrit (blood only) 37.2 % (37.0-47.0); Hemoglobin 12.2 g/dl (12.0-16.0); Immature Granulocytes # (auto) 0.02 K/uL (0.01-0.20); Immature Granulocytes % (auto) 0.4 %; Lymphocytes # (auto) 0.95 K/uL (1.20-3.40); Lymphocytes % (auto) 20.1 %; Mean Corpuscular Hemoglobin 29.3 pg (25.0-34.0); Mean Corpuscular Hgb Conc 32.8 g/dL (32.0-36.0); Mean Corpuscular Volume 89.2 fL (80.0-100.0); Monocytes # (auto) 0.41 K/uL (0.11-0.59); Monocytes % (auto) 8.7 %; Neutrophils # (auto) 3.29 K/uL (1.40-6.50); Neutrophils % (auto) 69.8 %; Platelet Count 169 K/uL (130-400); RDW Coefficient of Variation 12.4 % (11.5-14.5); Red Blood Count 4.17 M/uL (4.20-5.40); White Blood Count 4.72 K/ul (4.8-10.8)
[2023-01-30 07:28] LABS: Albumin Globulin Ratio 1.7 (0.9-2); BUN Creatinine Ratio 20.7 (10-20); Bilirubin,Total 0.3 mg/dl (0.2-1.0); Calcium 8.8 mg/dl (8.6-10.3); Creatinine Clr Calc Pharmacy 102.4 ml/min; Est GFR (African American) 91.4 ml/min; Est GFR (Non-African American) 78.9 ml/min; Globulin 2.3 gm/dl (2.5-4.0); Potassium 3.5 mmol/L (3.5-5.1); Total Protein 6.3 gm/dl (6.0-8.3)
[2023-01-30 07:39] LABS: Estimated Average Glucose 117 mg/dl; Hemoglobin A1C 5.7 % (4.5-5.6)
[2023-01-30 07:42] LABS: Thyroid Stimulating Hormone 8.879 uIu/ml (0.300-4.500)
[2023-01-30 08:17] LABS: T4 Free Thyroxine 1.02 ng/dl (0.61-1.60)
[2023-01-30] MEDS: PANTOprazole 40 MG TAB PO SCH ×2 (08:24→10:29)
[2023-01-30] MEDS: FOLIC ACID 400 MCG TAB PO SCH (08:25)
[2023-01-30] MEDS: ASPIRIN 81 MG ECTAB PO SCH (08:26)
[2023-01-30] MEDS: CHOLECALCIFEROL 5,000 UNITS 125 MCG TAB PO SCH (08:26)
[2023-01-30] MEDS: predniSONE 20 MG TAB PO SCH (08:26)
[2023-01-30] MEDS: ASCORBIC ACID 500 MG TAB PO SCH (08:26)
[2023-01-30] MEDS: ENOXAPARIN INJ 40 MG/0.4 ML SYR SQ SCH (08:26)
[2023-01-30] MEDS: DOCUSATE SODIUM 100 MG CAP PO SCH ×2 (08:27→21:48)
[2023-01-30] MEDS ORDERED: ATORVASTATIN 20 MG TAB PO SCH (09:00)
[2023-01-30] MEDS ORDERED: SUMAtriptan succinate 100 MG TAB PO PRN (09:07)
[2023-01-30] MEDS ORDERED: FLUCONAZOLE 50 MG TAB PO ONE (09:08)
--- NOTE | 2023-01-30 09:17 | Urology Consultation ---
Date of Consultation January 30, 2023 Assessment & Plan (1) History of kidney stones: (2) Hydronephrosis, left: Plan 57-year-old female admitted for neurologic symptoms. Originally CTA showed left hydronephrosis and an IVP was performed along with a renal ultrasound which show ed hydroureteronephrosis. No dedicated CT scan of the abdomen pelvis without contrast has been performed. Recommend dedicated CT scan of the abdomen pelvis without contrast to evaluate for kidney stones Even if she does have a kidney stone, there are no acute indications to stent her now as she is asymptomatic, has no concern for infection and her kidney function is stable. I worry that any sort of anesthesia may further exacerbate her neurologic symptoms In the event that the kidney stone is seen on CT scan, not unreasonable to make patient n.p.o. at midnight in the event that she would warrant any intervention although I suspect this is unlikely Most likely will see patient in outpatient follow-up to assess if she has passed any stones and discuss stones management moving forward History of Present Illness Attending Physician: Lizbet Bentley MD History of Present Illness 57-year-old female who was admitted for neurologic symptoms on 01/28/2023. A CT of the chest was performed which showed left hydronephrosis. A KUB was ordered as contrast had previously been given and despite the read say no hydronephrosis it appears that there is hydroureteronephrosis on review. A renal ultrasound was performed which shows mild left hydronephrosis. She has been afebrile with stable vitals. Review of her labs today show a white blood cell count of 4.7, hemoglobin of 12.2 and a previous urinalysis upon admission was negative. She does have a history of kidney stones and last saw urology in 2020. She denies any left flank pain today. Her neurologic symptoms are improving but have not resolved. She does report a history of recent persistent urinary tract infections. Allergies Allergy/AdvReac Type Severity Reaction Status Date / Time azithromycin [From Zithromax] Allergy Severe Hives Verified 01/28/23 10:13 dihydroergotamine Allergy Severe "THROAT Verified 01/28/23 10:13 SHUTS DOWN" ketorolac Allergy Intermediate HIVES Verified 01/28/23 14:34 Penicillins Allergy Intermediate Hives Verified 01/28/23 10:13 Home Medications Medication Instructions Recorded Confirmed Type ascorbic acid (vitamin C) 500 mg 500 mg PO QAM 11/11/17 01/28/23 History tablet (Vitamin C) conjugated estrogens 0.625 mg/gram 1 applic vaginal 2XWK 11/11/17 01/28/23 History vaginal cream (Premarin) fluticasone propionate 50 1 spray intranasal DAILY PRN 11/11/17 01/28/23 History mcg/actuation nasal Allergy Symptoms spray,suspension (Flonase Allergy Relief) folic acid 400 mcg tablet 400 mcg PO QAM 11/11/17 01/28/23 History lysine 500 mg tablet (L-Lysine) 500 mg PO DAILY PRN Cold Sore(s) 11/11/17 01/28/23 History selenium 200 mcg tablet (SelenoMax) 200 mcg PO QAM PRN illness 11/11/17 01/28/23 History sennosides 8.6 mg-docusate sodium 1 tab PO BID PRN Constipation 11/11/17 01/28/23 History 50 mg tablet (Senna-S) sumatriptan succinate 100 mg 100 mg PO UD PRN Migraine Headache 11/11/17 01/28/23 History tablet (Imitrex) cholecalciferol (vitamin D3) 125 5,000 units PO QAM 07/03/18 01/28/23 History mcg (5,000 unit) tablet (Vitamin D3) meperidine (PF) 100 mg/mL 1 ml IM DIRECTED PRN Migraine 07/03/18 01/28/23 History injection solution Headache multivitamin (Multiple Vitamins 1 tab PO QAM 07/03/18 01/28/23 History tablet) ondansetron 4 mg disintegrating 4 mg PO Q6H PRN nausea and 09/07/20 01/28/23 Rx tablet vomiting #20 tabs ibuprofen 800 mg tablet 800 mg PO DIRECTED PRN Pain 09/26/20 01/28/23 History phenazopyridine 100 mg tablet 100 mg PO TID PRN bladder spasms 10/04/20 01/28/23 Rx (Pyridium) #10 tabs galcanezumab-gnlm 120 mg/mL 120 mg subcut MONTHLY 10/25/22 01/28/23 History subcutaneous syringe (Emgality) cephalexin 500 mg capsule 500 mg PO BID 01/28/23 01/28/23 History levothyroxine 25 mcg tablet 25 mcg PO QAM 01/28/23 01/28/23 History Patient History Medical History Hypothyroidism Acute viral labyrinthitis Stroke-like symptoms Hydronephrosis Calculus of distal right ureter Right ureteral stone Hydronephrosis, right Osteoporosis Lyme disease History of kidney stones Patent foramen ovale (07/27/12) Migraine headache Surgical History H/O bilateral oophorectomy History of hysterectomy Family History Mother Cervical cancer Social History Smoking Status: Never smoker Hx Alcohol Use: No Hx Substance Use: No Preferred Language: Frisian Communication Ability: Effective Artificial Limb Fitter Required: No Beliefs That Will Affect Care: None Current Living Situation: Spouse Other Information That Helps Us Care for You: Yes Feels Safe at Home: Yes Safety Concerns: Feels Safe At This Time Assistive Devices: Glasses Review of Systems Review of Systems: 14 point review of systems negative outs trina of what is listed above in HPI Physical Exam Physical Exam: General: Alert and oriented, no acute distress HEENT: Normocephalic, mucous membranes moist Pulmonary: Nonlabored respirations Abdomen: Nondistended Extremities: Moves all 4 spontaneously Neuro: No gross deficits Skin: Warm, dry, no rashes noted Results & Data Vital Signs (Past 12 Hours) Vital Signs Temp Pulse Pulse Resp BP Pulse Ox O2 Del Method 01/30/23 08:06 36.6 C 65 18 115/75 96 Room Air 01/30/23 02:36 36.5 C 72 18 106/77 96 Room Air 01/29/23 23:22 36.7 C 74 14 104/65 97 Room Air 01/29/23 23:20 71 PG Care Time/CCT Total # of Minutes Spent Total Time Spent with Patient: Total time spent is greater than 50% in coordination of care (as documented) at patient's floor/unit and/or counseling patient: Coding Level of Care Code 30949 IN/OBS CONSULT LVL 3,45M Diagnoses History of kidney stones Z87.442 Hydronephrosis, left N13.30
[2023-01-30] MEDS ORDERED: LORazepam 1 MG in SYRINGE 0.5 ML IV STA (09:26)
[2023-01-30] MEDS ORDERED: GADOBUTROL 65ML VIAL IV ONE (11:13)
--- NOTE | 2023-01-30 11:17 | Hospitalist Progress Note ---
Date of Service January 30, 2023 Assessment & Plan (1) Stroke-like symptoms: (2) Acute viral labyrinthitis: (3) Sinusitis: (4) Migraine headache: (5) Patent foramen ovale: (6) Hypothyroidism: Plan Patient is a 57-year-old female with history of nephrolithiasis, chronic obst ructive uropathy, hypothyroidism, complex migraine, PFO who presented with history of balance issues resulting in ambulatory dysfunction, dizziness, difficulty with focusing, retrosternal chest tightness, chronic tinnitus concerning for possible CVA. Stroke-Like Symptoms: Presented with dizziness, difficulty with focusing, retrosternal chest tightness, chronic tinnitus Head CT and brain MRI w/o contrast without signs of stroke Head and neck CTA suggesting complete opacification of maxillary sinuses and infection in the sphenoid sinus as well Received aspirin while in ED Recently had lipid panel as outpatient, recent lipid panel from 01/12/23: TG 83, LDL 175, HDL 62 AM [id number] showed prediabetes and pt is aware Neurochecks, PT OT, speech eval Neuro consult-appreciate recs -believes related to BPPV vs also possible viral labyrinthitis. -repeat brain MRI if symptoms persist, this time w and w/o contrast -consider benzo for treatment if symptoms severe Valium ordered q12h PRN Repeat MRI with and without contrast ordered- noted no acute abnormalities or enhancement, confirmed the sinusitis in the maxillary and sphenoid sinus Symptoms suggestive of vestibular labyrinthitis, though complex migraine also on differential PT for vestibular training Continue Prednisone, aspirin, prn meclizine. Pt would like Atorvastatin 20mg discontinued as she noted body aches in the past. Given persistence and severity of symptoms, consider lumbar puncture. Consider ENT consult -case discussed with Dr. Aguilar on 01/30. Recommended dedicated CT sinus w/wo contrast, will be in to see pt on 02/01 if not sooner Maxillary and Sphenoidal Sinusitis Pt notes she had URI symptoms before starting treatment for sinusitis with Keflex Head and neck CTA suggesting complete opacification of maxillary sinuses and infection in the sphenoid sinus as well Keflex was switched to Rocephin on admission, abx broadened even further for pseudomonal coverage with cefepime (Pt requesting diflucan while on abx) Biofire ordered to rule out an underlying viral infection- has been negative Consider ENT consult --case discussed with Dr. Aguilar on 01/30. Recommended dedicated CT sinus w/wo contrast, will be in to see pt on 02/01 if not sooner Lyme Infection Pt with positive IgG, indicating past infection Noted that this was positive as well in 2019 Given current symptoms, started on doxycycline once more empirically while further testing pending Chest pain PACs H/O PFO Esophagitis Atypical Patient/family reports intermittent ongoing chest pain for many months. EKG with NSR, RBBB Troponins have remained normal Echo noting atrial septal aneurysm with small R to left shunt, recommending hung ly aspirin for stroke prophylaxis. Chest CTA noting esophagitis, possible cause of her chest pain. Started on pantoprazole, continue Consider cardiology consult- pt would like to follow up outpt Consider GI consult/outpt followup for possible EGD for esophagitis- pt would like to follow up outpt Chronic obstructive uropathy Nephrolithiasis Hydronephrosis Pt currently asymptomatic, notes that she has struggled with heavy kidney stone burden in the past, requiring transfer to [place] due to elevated kidney function. CTA chest noting partially seen left sided 4mm obstructive stone and mild hydronephrosis KUB read as no hydronephrosis Renal ultrasound confirming left sided obstruction and hydronephrosis, question of left ureteral dilation CT abd/pelvis not recommended at that time by radiology due to previous contrast use CT abd pelvis ordered on 01/30- noted 5mm obstructing stone with improved hydronephrosis, stones also present in the left kidney Continue to monitor kidney function Urology consulted- appreciate recs -recommended dedicated CT abd/pelvis -concern about pt undergoing anesthesia with current neurological symptoms -given stability and normal kidney function, recommending outpt followup but NPO after midnight just in case -pt requesting this be addressed inpatient, notes she was traumatized by her previous experience -would like further evaluation by anesthesia -Case discussed with urologist Dr. Mcclain, will be in to discuss further with pt in AM Constipation Moderate amount of stool noted on KUB Scheduled colace, has prn Miralax and Milk of Mag ordered Continue to monitor Hemiplegic and complex migraines: Chronic stable Has chronic auras and notes numbness and dizziness associated with these symptoms Takes sumatriptan and Emgality subcu monthly Consider Migraine cocktail with Compazine and Benadryl while here- pt has toradol allergy though she states she can tolerate ibuprofen PRN imitrex Notes reglan helped her nausea in the past Hypothyroidism: Chronic stable Recent diagnosis as of last month Started on levothyroxine, pt concerned that the new medication might be contributing to her symptoms. Discontinued levothyroxine TSH elevated but T4 wnl, suggesting subclinical hypothyroidism Also noted that pt is sick and in the hospital which can affect thyroid levels Code Status: Full Code VTE Prophylaxis: Lovenox SQ Diet: HH Dispo: PT/OT ordered, appreciate recs Admission and Anticipated Discharge Date Admission Date: January 28, 2023 Subjective Pt seen multiple times during the day. Originally by herself with on the phone, then with at bedside, and then later in the day alone once more. States that her symptoms are a little better but still present. Upon discussion of findings wants to have her urological concerns addressed while she's here as she states she previously had a traumatic experience with kidney stones that required transfer to [place]. Review of Systems Review of Systems: All systems reviewed & are unremarkable except as noted in Subjective Physical Exam Physical Exam: General: Alert, oriented. No acute distress Skin: No noted rashes or bruises Psych: Appropriate mood and affect Neuro: No gross deficits HEENT: NC/AT Chest: Nontender to palpation. CV: RRR, Normal s1, s2. Resp: Breath sounds clear bilaterally, no increased effort of breathing. Abdomen: soft, nontender, nondistended. Extremities: No edema in lower extremities bilaterally. Results & Data Results & Data Vital Signs (Past 12 Hours) Vital Signs Temp Pulse Pulse Resp BP Pulse Ox O2 Del Method 01/30/23 08:06 36.6 C 65 18 115/75 96 Room Air 01/30/23 08:00 71 01/30/23 02:36 36.5 C 72 18 106/77 96 Room Air 01/29/23 23:22 36.7 C 74 14 104/65 97 Room Air 01/29/23 23:20 71 Critical Care Time Prolonged Care Time I spent a total [id number] of prolonged care time coordinating, documenting, and providing care for this patient excluding time spent in the performance of separately billed services. Case discussed with pt in detail in the room in the AM of 01/30 with on the phone going through all imaging studies and labs done thus far. Later returned to patient's room to discuss MRI brain and CT abd/pelvis findings and Urology recommendations. Then her case was discussed with ENT provider Dr. Aguilar and coordinating further care including ordering CT sinus for further evaluation by ENT. Case then discussed with Urology and coordinating further care including possible surgical procedure on 01/31. (3) Sinusitis Chronicity: acute Recurrence: not specified as recurrent Sinusitis location: sphenoidal Qualified Code(s): J01.30 - Acute sphenoidal sinusitis, unspecified
--- NOTE | 2023-01-30 11:30 | Magnetic Resonance Report ---
MRI OF THE BRAIN WITHOUT AND WITH IV CONTRAST CLINICAL HISTORY: persistent N/V, headache COMPARISON STUDY: Head CT, CTA of the head and MRI of the brain January 28, 2023. TECHNIQUE: Utilizing a 1.5 Alyssia magnet and dedicated coil, multiplanar, multiecho imaging of the br ain was performed pre and postcontrast administration. IV administration of 6 mL of Gadavist contras t was uneventful. FINDINGS: There are no foci of restricted diffusion to suggest acute infarct. No acute intracranial h emorrhage, midline shift or mass effect is present. Ventricular system is unremarkable. Basal cistern s are patent. Flow-voids for the major intracranial vessels are present. There is no intracranial mas s or pathologic enhancement. Calvarial signal is normal. Minimal white matter T2 hyperintensity is pr esent. This is of doubtful significance. The appearance of the brain is unchanged. Sphenoid sinus air -fluid level is again noted. The maxillary sinuses are opacified. This is unchanged. IMPRESSION: 1. No acute intracranial findings. 2. No intracranial mass or pathologic enhancement. 3. No change in a sphenoid sinus air-fluid level and opacified maxillary sinuses. ACT 112: Negative or not required by law. Electronically signed by: Hoang Betancourt M.D. 01/30/2023 11:28 AM
--- NOTE | 2023-01-30 11:49 | CT Scan Report ---
CT OF THE ABDOMEN AND PELVIS WITHOUT CONTRAST CLINICAL HISTORY: Bilateral flank pain. Evaluate for obstructive uropathy. COMPARISON STUDY: Renal ultrasound and KUB January 28, 2023. CT of the abdomen and pelvis September. TECHNIQUE: Axial images of the abdomen and pelvis were obtained without IV contrast. Images were revi ewed in the axial, sagittal, and coronal planes. Automated exposure control was utilized for the gisela dy. A dose lowering technique was utilized adhering to the principles of ALARA. FINDINGS: Lucency with hyperinflation of the lingula and anterior basal segment of the left lower lob e is unchanged. 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 No pneumatosis, free air or portal venous gas is present. Unenhanced images of liver, spleen, adrenal glands and pancreas are unremarkable. Pu nctate right renal calculus is present. Left renal calculi measure up to 4 mm. A 5 mm mid left ureter al calculus at the level of the mid SI joint results in mild left hydronephrosis. This has decreased since CT of January 28, 2023. No additional ureteral calculi are present. Pelvic calcifications repr esent phleboliths. No evidence for a bowel obstruction. There is no ascites or lymphadenopathy. The a ppendix is normal. IMPRESSION: 1. 5 mm mid left ureteral calculus results in mild left hydronephrosis which has decreased since CT o f January 28, 2023. 2. Multiple left renal calculi. Punctate right renal calculus. No right ureteral calculi. No right hy dronephrosis. ACT 112: Negative or not required by law. Electronically signed by: Hoang Betancourt M.D. 01/30/2023 11:47 AM
[2023-01-30] MEDS ORDERED: OPTIRAY 320 500ml IV ONE (18:07)
--- NOTE | 2023-01-30 18:23 | CT Scan Report ---
CT sinus wo/w con CLINICAL HISTORY: noted opacification, r/o meningeal spread COMPARISON STUDY: Head CT and CTA of the head January 28, 2023. MRI of the brain performed earlier today. TECHNIQUE: Axial images of the sinuses were obtained before and after intravenous administration of 8 2 cc of Optiray 320 IV. Sagittal and coronal reconstructions were viewed. Automated exposure control was utilized for the study. A dose lowering technique was utilized adhering to the principles of ALA RA. FINDINGS: Mastoid air cells are clear. The bilateral maxillary sinuses are opacified. The ostiomeatal complexes are occluded. Frontal sinuses are clear. Frontoethmoidal recesses are patent. There is mil d ethmoid sinus mucosal thickening. The left sphenoethmoidal recess is patent. The right is occluded. Air-fluid level with secretions within the right sphenoid sinus is present. This was shown on prior head CT and MRI. No bony destruction is present. No intracranial extension is identified by CT. Orbit s are unremarkable. Visualized portions of the face are unremarkable. IMPRESSION: 1. Air-fluid level within the right sinus with secretions. This suggests acute sinusitis. No CT evide nce for intracranial extension. 2. Age indeterminate opacification of the bilateral maxillary sinuses with occluded bilateral ostiome atal complexes. Occluded right sphenoethmoidal recess. ACT 112: Negative or not required by law. Electronically signed by: Hoang Betancourt M.D. 01/30/2023 6:22 PM
[2023-01-31] MEDS: CEFEPIME 2,000 MG in SYRINGE 0 ML IV SCH ×3 (03:08→18:13)
--- NOTE | 2023-01-31 06:53 | Anesthesiology Consultation ---
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 initiated Consults Requested none ASA ASA2 Proposed Anesthesia Anesthesia Type: MAC Risk / Benefits Reviewed With: PT / POA / Parent / Guardian, Accepts Plan and Informed Consent Obtained History Surgery Operation Date: 01/31/23 08:00 Proposed Procedures p Ureteral Stent Insertion/Removal(Left) - Urbano Mcclain MD Height/Weight Height: 5 ft 4 in Weight: 63.1 kg Allergies Allergy/AdvReac Type Severity Reaction Status Date / Time azithromycin [From Zithromax] Allergy Severe Hives Verified 01/28/23 10:13 dihydroergotamine Allergy Severe "THROAT Verified 01/28/23 10:13 SHUTS DOWN" ketorolac Allergy Intermediate HIVES Verified 01/28/23 14:34 Penicillins Allergy Intermediate Hives Verified 01/28/23 10:13 Medications Home Medications Medication Instructions Recorded Confirmed Last Taken ascorbic acid (vitamin C) 500 mg 500 mg PO QAM 11/11/17 01/28/23 10/25/22 tablet (Vitamin C) conjugated estrogens 0.625 mg/gram 1 applic vaginal 2XWK 11/11/17 01/28/23 10/25/22 vaginal cream (Premarin) fluticasone propionate 50 1 spray intranasal DAILY PRN 11/11/17 01/28/23 09/02/20 mcg/actuation nasal Allergy Symptoms spray,suspension (Flonase Allergy Relief) folic acid 400 mcg tablet 400 mcg PO QAM 11/11/17 01/28/23 10/25/22 lysine 500 mg tablet (L-Lysine) 500 mg PO DAILY PRN Cold Sore(s) 11/11/17 01/28/23 Unknown selenium 200 mcg tablet (SelenoMax) 200 mcg PO QAM PRN illness 11/11/17 01/28/23 10/25/22 sennosides 8.6 mg-docusate sodium 1 tab PO BID PRN Constipation 11/11/17 01/28/23 10/25/22 50 mg tablet (Senna-S) sumatriptan succinate 100 mg 100 mg PO UD PRN Migraine Headache 11/11/17 01/28/23 10/25/22 tablet (Imitrex) cholecalciferol (vitamin D3) 125 5,000 units PO QAM 07/03/18 01/28/23 10/25/22 mcg (5,000 unit) tablet (Vitamin D3) meperidine (PF) 100 mg/mL 1 ml IM DIRECTED PRN Migraine 07/03/18 01/28/23 Unknown injection solution Headache multivitamin (Multiple Vitamins 1 tab PO QAM 07/03/18 01/28/23 10/25/22 tablet) ondansetron 4 mg disintegrating 4 mg PO Q6H PRN nausea and 09/07/20 01/28/23 Unknown tablet vomiting #20 tabs ibuprofen 800 mg tablet 800 mg PO DIRECTED PRN Pain 09/26/20 01/28/23 09/26/20 phenazopyridine 100 mg tablet 100 mg PO TID PRN bladder spasms 10/04/20 01/28/23 Unknown (Pyridium) #10 tabs galcanezumab-gnlm 120 mg/mL 120 mg subcut MONTHLY 10/25/22 01/28/23 1 Month Ago subcutaneous syringe (Emgality) ~09/24/22 cephalexin 500 mg capsule 500 mg PO BID 01/28/23 01/28/23 Unknown levothyroxine 25 mcg tablet 25 mcg PO QAM 01/28/23 01/28/23 Unknown Active Medications Generic Name Dose Route Start Last Admin Trade Name Freq PRN Reason Stop Dose Admin Ascorbic Acid 500 mg 01/29/23 09:00 01/30/23 08:26 Ascorbic Acid 500 Mg Tab PO 02/28/23 08:59 500 mg QAM PETRA Administration Aspirin 81 mg 01/29/23 09:00 01/30/23 08:26 Aspirin 81 Mg Ectab PO 02/28/23 08:59 81 mg DAILY PETRA Administration Docusate Sodium 100 mg 01/30/23 09:00 01/30/23 21:48 Docusate Sodium 100 Mg Cap PO 03/01/23 08:59 100 mg BID PETRA Administration Doxycycline Hyclate 100 mg 01/30/23 01:25 01/30/23 21:48 Doxycycline Hyclate 100 Mg Cap PO 02/09/23 01:24 100 mg BID PETRA Administration Enoxaparin Sodium 40 mg 01/28/23 10:30 01/30/23 08:26 Enoxaparin Inj 40 Mg/0.4 Ml Syr SQ 02/27/23 10:29 40 mg QAM PETRA Administration Folic Acid 400 mcg 01/29/23 09:00 01/30/23 08:25 Folic Acid 400 Mcg Tab PO 02/28/23 08:59 400 mcg QAM PTERA Administration Cefepime HCl 2,000 mg/ Syringe 20 mls @ 5 mls/min 01/29/23 18:30 01/31/23 03:08 IV 02/08/23 18:29 5 mls/min Q8H PETRA Administration Protocol Meclizine HCl 25 mg 01/28/23 10:26 01/28/23 21:07 Meclizine Hcl 25 Mg Tab PO 02/27/23 10:25 25 mg Q6H PRN Administration Vertigo Ondansetron HCl 4 mg 01/28/23 10:16 01/29/23 17:17 Ondansetron Inj 2 Mg/Ml 2 Ml Vial IV 02/27/23 10:15 4 mg Q6H PRN Administration Nausea Pantoprazole Sodium 40 mg 01/29/23 09:00 01/30/23 10:29 Pantoprazole 40 Mg Tab PO 02/28/23 08:59 40 mg DAILY PETRA Administration Prednisone 60 mg 01/28/23 10:30 01/30/23 08:26 Prednisone 20 Mg Tab PO 03/03/23 09:00 60 mg DAILY PETRA Administration Vitamin D 5,000 units 01/29/23 09:00 01/30/23 08:26 Cholecalciferol 5,000 Units 125 Mcg Tab PO 02/28/23 08:59 5,000 units QAM PETRA Administration NPO Date Last Intake of Fluids: 01/31/23 Time Last Intake of Fluids: 00:00 Date Last Intake of Solids: 01/31/23 Time Last Intake of Solids: 00:00 Past Medical History Medical History Hypothyroidism Acute viral labyrinthitis Stroke-like symptoms Hydronephrosis Calculus of distal right ureter Right ureteral stone Hydronephrosis, right Osteoporosis Lyme disease History of kidney stones Patent foramen ovale (07/27/12) Migraine headache Exercise / Class Metabolic Activity II 4-5 Yardwork/Stairs/Walk up hill Past Family History Family History Mother Cervical cancer Past Surgical History Surgical History H/O bilateral oophorectomy History of hysterectomy Past Anesthesia History No Hx of Anesthesia Complications and No Family Hx of Anesthesia Complications History of PONV No Hx of PONV and No Hx of Motion Sickness Social History Smoking Status: Never smoker Hx Alcohol Use: No Alcohol type: wine alcohol intake frequency: holidays/special occasions only Hx Substance Use: No Physical Exam Vital Signs Last Vital Signs Temp 97.5 F L 01/31/23 03:30 Pulse 62 01/31/23 03:30 Resp 14 01/31/23 03:30 BP 132/88 01/31/23 03:30 Pulse Ox 96 01/31/23 03:30 O2 Del Method Room Air 01/31/23 03:30 ENMT Mouth: + dental restorations Thyromental Distance: > or= 3.5 Finger Breadths Mallampati Class: II Neck normal visual inspection Respiratory normal respiratory effort Auscultation: lungs clear to auscultation bilaterally Cardiovascular Rate/Rhythm: regular rate and regular rhythm Testing Laboratory Results 01/31/23 06:51 PT 11.6 Seconds (9.0-12.0) 01/28/23 09:09 INR 1.1 (0.9-1.1) 01/28/23 09:09 APTT 30.8 Seconds (21.0-31.0) 01/28/23 09:09 Hemoglobin A1c 5.7 % (4.5-5.6) H 01/30/23 06:17 Urine Color Yellow 01/28/23 14:10 Urine Appearance Clear (Clear) 01/28/23 14:10 Urine pH 8.0 (4.5-7.5) H 01/28/23 14:10 Ur Specific [place] > 1.045 (1.000-1.030) H 01/28/23 14:10 Urine Protein Negative (Negative) 01/28/23 14:10 Urine Glucose (UA) Negative (Negative) 01/28/23 14:10 Urine Ketones Negative (Negative) 01/28/23 14:10 Urine Nitrite Negative (Negative) 01/28/23 14:10 Ur Leukocyte Esterase Negative (Negative) 01/28/23 14:10
[2023-01-31] MEDS ORDERED: MIDAZOLAM HCL 1 MG/ML 2ML VIAL ONE ×2 (06:58→07:32)
[2023-01-31] MEDS ORDERED: fentaNYL citrate PF 100 MCG/2 ML VIAL ONE (06:58)
[2023-01-31] MEDS ORDERED: LIDOCAINE 2% 2 ML VIAL/AMP(20MG/ML) INFIL ONE (06:58)
[2023-01-31] MEDS ORDERED: PROPOFOL IV EMULSION 10 MG/ML 20 ML VIAL IV ONE (06:58)
[2023-01-31] MEDS ORDERED: ONDANSETRON INJ 2 MG/ML 2 ML VIAL ONE (07:02)
--- NOTE | 2023-01-31 07:04 | Urology Progress Note ---
Date of Service January 31, 2023 Assessment & Plan (1) Left ureteral calculus: Plan 57-year-old female admitted for neurologic symptoms. Originally CTA showed left hydronephrosis and an IVP was performed along with a renal ultrasound which showed hydroureteronephrosis. Updated CT scan was performed on 01/30/2023 which showed a roughly 5 mm left mid ureteral calculus with hydronephrosis. She also has nonobstructing stones on the left side. Patient wanted to proceed with stent placement so she would not have to return to the hospital at the stone at some point became symptomatic To OR for cystoscopy with left retrograde pyelogram and left ureteral stent placement Consent obtained. Patient marked Patient already on cefepime Patient understands that anesthesia may exacerbate her current neurologic symptoms and would still like to proceed Admission and Anticipated Discharge Date Admission Date: January 28, 2023 Subjective No acute issues overnight. Updated CT scan showed a 5 mm mid left ureteral calculus with hydronephrosis and several nonobstructing stones in the left kidney. Patient would prefer to have a stent placed while she is in the hospital. Review of Systems Review of Systems: 14 point review of systems negative outs trina of what is listed above in HPI Physical Exam Physical Exam: General: Alert and oriented, no acute distress HEENT: Normocephalic, mucous membranes moist Pulmonary: Nonlabored respirations Abdomen: Nondistended Extremities: Moves all 4 spontaneously Neuro: No gross deficits Skin: Warm, dry, no rashes noted Results & Data Vital Signs (Past 12 Hours) Vital Signs Temp Pulse Pulse Resp BP Pulse Ox O2 Del Method 01/31/23 03:30 36.4 C L 62 14 132/88 96 Room Air 01/30/23 23:00 70 01/30/23 23:00 36.4 C L 73 14 114/71 96 Room Air PG Care Time/CCT Total # of Minutes Spent Total Time Spent with Patient: Total time spent is greater than 50% in coordination of care (as documented) at patient's floor/unit and/or counseling patient: Coding Level of Care Code 36050 SUB INP/OBS CARE 2/35MIN Diagnoses Left ureteral calculus N20.1
[2023-01-31 07:18] LABS: Basophils # (auto) 0.02 K/uL (0.00-0.20); Basophils % (auto) 0.4 %; Eosinophils # (auto) 0.02 K/uL (0.00-0.50); Eosinophils % (auto) 0.4 %; Hematocrit (blood only) 40.2 % (37.0-47.0); Hemoglobin 13.3 g/dl (12.0-16.0); Immature Granulocytes # (auto) 0.01 K/uL (0.01-0.20); Immature Granulocytes % (auto) 0.2 %; Lymphocytes # (auto) 1.11 K/uL (1.20-3.40); Lymphocytes % (auto) 22.2 %; Mean Corpuscular Hemoglobin 29.5 pg (25.0-34.0); Mean Corpuscular Hgb Conc 33.1 g/dL (32.0-36.0); Mean Corpuscular Volume 89.1 fL (80.0-100.0); Mean Platelet Volume 9.9 fL (9.4-12.4); Monocytes # (auto) 0.54 K/uL (0.11-0.59); Monocytes % (auto) 10.8 %; Platelet Count 202 K/uL (130-400); RDW Coefficient of Variation 12.5 % (11.5-14.5); RDW Standard Deviation 40.5 fL (36.4-46.3); Red Blood Count 4.51 M/uL (4.20-5.40)
[2023-01-31] MEDS ORDERED: DIATRIZOATE MEGLUMINE 30% 100ML VIAL INSTIL PRN (07:20)
[2023-01-31 07:32] LABS: Albumin Globulin Ratio 1.7 (0.9-2); Albumin Level 4.4 gm/dl (3.4-5.0); Bilirubin,Total 0.4 mg/dl (0.2-1.0); Calcium 9.1 mg/dl (8.6-10.3); Creatinine Clr Calc Pharmacy 66.2 ml/min; Est GFR (African American) 94.2 ml/min; Est GFR (Non-African American) 81.3 ml/min; Globulin 2.6 gm/dl (2.5-4.0); Phosphorus 2.6 mg/dl (2.5-4.9); Potassium 3.8 mmol/L (3.5-5.1)
[2023-01-31] MEDS ORDERED: ONDANSETRON INJ 2 MG/ML 2 ML VIAL IV PRN (07:36)
[2023-01-31] MEDS ORDERED: ePHEDrine sulfate 50 MG/ML AMP IV PRN (07:36)
[2023-01-31] MEDS ORDERED: ATROPINE SULFATE 0.1 MG/ML 10ML SYR IV PRN (07:36)
[2023-01-31] MEDS ORDERED: fentaNYL citrate PF 100 MCG/2 ML VIAL IV PRN (07:36)
--- NOTE | 2023-01-31 07:45 | Operative Report ---
PG Post Operative Report Pre & Post Diagnosis Operation Date: 01/31/23 08:00 Pre-Op Diagnosis: Left ureteral calculus. Post-Op Diagnosis: Left ureteral calculus. I identified the patient and participated in the time-out.: Yes Procedure Operation Date: 01/31/23 08:00 Actual Procedures p Cystoscopy, left retrograde pyelogram with radiographic interpretation, left ureteral stent insertion(Left) - Urbano Mcclain MD Surgeon Urbano Mcclain MD Armature Tester None Estimated Blood Loss 0 Findings See Below Mild left hydronephrosis Specimens None Drains 6 [place] by 24 cm left ureteral stent Anesthesia Type MAC Complications none Indications 57-year-old female admitted for neurologic symptoms he was found to have hydronephrosis. A CT scan showed a mid left ureteral calculus. She was asymptomatic but desired intervention while she was in the hospital. Description of Procedure After informed consent was obtained, the patient was transported operative suite. MAC anesthesia was induced. The patient was placed in dorsal lithotomy position prepped and draped in a sterile fashion. They received preoperative cefepime for antibiotic prophylaxis. An appropriate surgical timeout was performed. A 22 [place] rigid scope was inserted per urethra into the bladder. Abbott cystoscopy revealed no stones or lesions. I turned my attention the left ureteral orifice and intubated this with a 5 [place] open-ended catheter. A left retrograde pyelogram was shot which showed mild left hydro. A sensor wire was advanced into the kidney and confirmed fluoroscopically. A 6 [place] by 24 cm left ureteral stent was deployed with a coil in the renal pelvis and the lower pole as I could not get it to coil in the renal pelvis. Coil noted in the bladder. These were confirmed fluoroscopically and under direct visualization, respectively. The bladder was emptied and the scope was removed. This concluded the end of the case. All counts were correct at the end of the case. I was present, scrubbed, and actively participated for the entirety of the procedure. I attest to the content of the Intraoperative Record and any orders documented therein. Any exceptions are noted below.
--- NOTE | 2023-01-31 08:02 | Fluoroscopy Report ---
FL retrograde includes kub CLINICAL HISTORY: LT SIDE STENT COMPARISON STUDY: CT of the abdomen and pelvis January 30, 2023. FLUOROSCOPY TIME: 7.6 seconds. Ka, r: 0.92 mGy FLUOROSCOPIC IMAGES: 1 FINDINGS: Fluoroscopy was provided during left retrograde pyelogram and left ureteral stent insertion . Proximal aspect of the left ureteral stent projects over the left collecting system. IMPRESSION: Fluoroscopy provided during left retrograde pyelogram and left ureteral stent insertion. ACT 112: Negative or not required by law. Electronically signed by: Hoang Betancourt M.D. 01/31/2023 8:01 AM
--- NOTE | 2023-01-31 08:19 | Anesthesiology Progress Note ---
Date of Service January 31, 2023 Anesthesia Post Procedure Vital Signs Vital Signs: Temp Pulse Pulse Resp BP Pulse Ox O2 Del Method 01/31/23 08:10 71 12 121/76 100 Room Air 01/31/23 08:00 63 8 L 102/68 96 Nasal Cannula 01/31/23 07:53 97.3 F L 68 8 L 93/66 L 95 Nasal Cannula 01/31/23 07:00 73 01/31/23 03:30 97.5 F L 62 14 132/88 96 Room Air 01/30/23 23:00 70 01/30/23 23:00 97.5 F L 73 14 114/71 96 Room Air 01/30/23 19:00 97.9 F 65 14 112/77 96 Room Air 01/30/23 16:03 97.7 F 88 16 110/66 95 Room Air 01/30/23 15:05 82 O2 Flow Rate 01/31/23 08:10 0 01/31/23 08:00 2 01/31/23 07:53 4 01/31/23 07:00 01/31/23 03:30 01/30/23 23:00 01/30/23 23:00 01/30/23 19:00 01/30/23 16:03 01/30/23 15:05 Pain Intensity Head: Pain Intensity: 10 Transfer of Care Handoff Completed per policy Notes Mental Status: alert / awake / arousable and participated in evaluation Patient Amnestic to Procedure: Yes Nausea / Vomiting: adequately controlled Pain: adequately controlled Airway Patency, RR, SpO2: stable & adequate BP & HR: stable & adequate Hydration State: stable & adequate Anesthetic Complications: no major complications apparent and Pt Satisfied with anesthetic care
[2023-01-31] MEDS: DOXYCYCLINE HYCLATE 100 MG CAP PO SCH ×2 (08:55→20:17)
[2023-01-31] MEDS: FOLIC ACID 400 MCG TAB PO SCH (08:56)
[2023-01-31] MEDS: PANTOprazole 40 MG TAB PO SCH (08:56)
[2023-01-31] MEDS: CHOLECALCIFEROL 5,000 UNITS 125 MCG TAB PO SCH (08:56)
[2023-01-31] MEDS: DOCUSATE SODIUM 100 MG CAP PO SCH ×2 (08:56→20:17)
[2023-01-31] MEDS: predniSONE 20 MG TAB PO SCH (08:57)
[2023-01-31] MEDS: ASPIRIN 81 MG ECTAB PO SCH (08:57)
[2023-01-31] MEDS: ASCORBIC ACID 500 MG TAB PO SCH (08:57)
[2023-01-31] MEDS: ENOXAPARIN INJ 40 MG/0.4 ML SYR SQ SCH (09:10)
--- NOTE | 2023-01-31 12:33 | Hospitalist Progress Note ---
Date of Service January 31, 2023 Assessment & Plan (1) Stroke-like symptoms: (2) Acute viral labyrinthitis: (3) Sinusitis: (4) Migraine headache: (5) Patent foramen ovale: (6) Hypothyroidism: Plan Patient is a 57-year-old female with history of nephrolithiasis, chronic obst ructive uropathy, hypothyroidism, complex migraine, PFO who presented with history of balance issues resulting in ambulatory dysfunction, dizziness, difficulty with focusing, retrosternal chest tightness, chronic tinnitus concerning for possible CVA. Stroke-Like Symptoms: Presented with dizziness, difficulty with focusing, retrosternal chest tightness, chronic tinnitus Head CT and brain MRI w/o contrast without signs of stroke Head and neck CTA suggesting complete opacification of maxillary sinuses and infection in the sphenoid sinus as well Received aspirin while in ED Recently had lipid panel as outpatient, recent lipid panel from 01/12/23: TG 83, LDL 175, HDL 62 AM [id number] showed prediabetes and pt is aware Neurochecks, PT OT, speech eval Neuro consult-appreciate recs -believes related to BPPV vs also possible viral labyrinthitis. -repeat brain MRI if symptoms persist, this time w and w/o contrast -consider benzo for treatment if symptoms severe Valium ordered q12h PRN Repeat MRI with and without contrast ordered- noted no acute abnormalities or enhancement, confirmed the sinusitis in the maxillary and sphenoid sinus Symptoms suggestive of vestibular labyrinthitis, though complex migraine also on differential PT for vestibular training Continue Prednisone, aspirin, prn meclizine. Pt would like Atorvastatin 20mg discontinued as she noted body aches in the past. Given persistence and severity of symptoms, consider lumbar puncture. Consider ENT consult -case discussed with Dr. Aguilar on 01/30. Recommended dedicated CT sinus w/wo contrast -CT sinus confirming severe maxillary sinus infection, R sphenoid sinusitis -ENT evaluated on 02/01, advised that symptoms are more likely vestibular neuronitis, advising supportive care, and discharging with doxycycline 100mg BID x 10 days and medrol dose pack -Advised pt will need outpatient audiogram, to call [phone] for appt Maxillary and Sphenoidal Sinusitis Pt notes she had URI symptoms before starting treatment for sinusitis with Keflex Head and neck CTA suggesting complete opacification of bilateral maxillary sinuses and R sphenoid sinus as well Keflex was switched to Rocephin on admission, abx broadened even further for pseudomonal coverage with cefepime (Pt requesting diflucan while on abx) Biofire ordered to rule out an underlying viral infection- has been negative Consider ENT consult -case discussed with Dr. Aguilar on 01/30. Recommended dedicated CT sinus w/wo contrast -CT sinus confirming severe maxillary sinus infection, R sphenoid sinusitis -ENT evaluated on 02/01, advised that symptoms are more likely vestibular neuronitis, advising supportive care, and discharging with doxycycline 100mg BID x 10 days and medrol dose pack -Advised pt will need outpatient audiogram, to call [phone] for appt Lyme Infection Pt with positive IgG, indicating past infection Noted that this was positive as well in 2019 Given current symptoms, started on doxycycline once more empirically while further testing pending Chest pain PACs H/O PFO Esophagitis Atypical Patient/family reports intermittent ongoing chest pain for many months. EKG with NSR, RBBB Troponins have remained normal Echo noting atrial septal aneurysm with small R to left shunt, recommending daily aspirin for stroke prophylaxis. Chest CTA noting esophagitis, possible cause of her chest pain. Started on pantoprazole, continue Consider cardiology consult- pt would like to follow up outpt Consider GI consult/outpt followup for possible EGD for esophagitis- pt would like to follow up outpt Chronic obstructive uropathy Nephrolithiasis Hydronephrosis Pt currently asymptomatic, notes that she has struggled with heavy kidney stone burden in the past, requiring transfer to [place] due to elevated kidney function. CTA chest noting partially seen left sided 4mm obstructive stone and mild hydronephrosis KUB read as no hydronephrosis Renal ultrasound confirming left sided obstruction and hydronephrosis, question of left ureteral dilation CT abd/pelvis not recommended at that time by radiology due to previous contrast use CT abd pelvis ordered on 01/30- noted 5mm obstructing stone with improved hydronephrosis, stones also present in the left kidney Continue to monitor kidney function Urology consulted- appreciate recs -recommended dedicated CT abd/pelvis -concern about pt undergoing anesthesia with current neurological symptoms -given stability and normal kidney function, recommending outpt followup but NPO after midnight just in case -pt requesting this be addressed inpatient, notes she was traumatized by her previous experience -would like further evaluation by anesthesia -s/p stent placement on 01/31 with Urology Constipation Moderate amount of stool noted on KUB Scheduled colace, has prn Miralax and Milk of Mag ordered Continue to monitor Hemiplegic and complex migraines: Chronic stable Has chronic auras and notes numbness and dizziness associated with these symptoms Takes sumatriptan and Emgality subcu monthly Consider Migraine cocktail with Compazine and Benadryl while here- pt has toradol allergy though she states she can tolerate ibuprofen PRN imitrex Notes reglan helped her nausea in the past Hypothyroidism: Chronic stable Recent diagnosis as of last month Started on levothyroxine, pt concerned that the new medication might be contributing to her symptoms. Discontinued levothyroxine TSH elevated but T4 wnl, suggesting subclinical hypothyroidism Also noted that pt is sick and in the hospital which can affect thyroid levels Code Status: Full Code VTE Prophylaxis: Lovenox SQ Diet: HH Dispo: PT/OT ordered, appreciate recs Admission and Anticipated Discharge Date Admission Date: January 28, 2023 Subjective Pt denied acute events overnight. Pt seen in the AM after stent placed. Stated that her symptoms and pain were controlled. States did not feel like the anesthesia aggravated her symptoms. Review of Systems Review of Systems: All systems reviewed & are unremarkable except as noted in Subjective Physical Exam Physical Exam: General: Alert, oriented. No acute distress Skin: No noted rashes or bruises Psych: Appropriate mood and affect Neuro: No gross deficits HEENT: NC/AT Chest: Nontender to palpation. CV: RRR, Normal s1, s2. Resp: Breath sounds clear bilaterally, no increased effort of breathing. Abdomen: soft, nontender, nondistended. Extremities: No edema in lower extremities bilaterally. Results & Data Results & Data Vital Signs (Past 12 Hours) Vital Signs Temp Pulse Pulse Resp BP Pulse Ox O2 Del Method 01/31/23 11:21 36.5 C 69 16 131/81 99 Room Air 01/31/23 08:20 36.0 C L 70 14 123/73 96 Room Air 01/31/23 08:10 71 12 121/76 100 Room Air 01/31/23 08:00 63 8 L 102/68 96 Nasal Cannula 01/31/23 07:53 36.3 C L 68 8 L 93/66 L 95 Nasal Cannula 01/31/23 07:00 73 01/31/23 03:30 36.4 C L 62 14 132/88 96 Room Air O2 Flow Rate 01/31/23 11:21 01/31/23 08:20 0 01/31/23 08:10 0 01/31/23 08:00 2 01/31/23 07:53 4 01/31/23 07:00 01/31/23 03:30 (3) Sinusitis Chronicity: acute Recurrence: not specified as recurrent Sinusitis location: sphenoidal Qualified Code(s): J01.30 - Acute sphenoidal sinusitis, unspecified
--- NOTE | 2023-01-31 14:37 | ENT Consultation ---
Date of Consultation January 31, 2023 Assessment & Plan (1) Sinusitis: (2) Imbalance: Plan 57yF h/o complex migraine admitted with imbalance, brain fog. Found to have bilateral maxillary and R sphenoid sinusitis on imaging. No signs of complicated sinusitis/meningitis on imaging or exam. History not consistent with BPPV and less likely labyrinthitis without significant subjective hearing loss, more likely vestibular neuronitis. -Continue supportive care, okay for discharge from ENT standpoint -Okay for doxycycline twice daily x 10 days for sinusitis once ready to transition to PO abx, patient already taking for Lyme -Agree with prednisone, would transition to medrol dosepak on discharge -Will need outpatient audiogram, call [phone] for appt -Discussed possibility of referral to vestibular physical therapy if any ongoing symptoms -Follow-up as needed based on audiogram and ongoing symptomatology History of Present Illness Reason for Consultation: imbalance, sinusitis Attending Physician: Lizbet Bentley MD History of Present Illness 57yF history of complex migraine admitted for imbalance, brain fog which began acutely prior to presentation. Had been treated for sinusitis x1 week previous to admission (kelfex). Initial concern for CVA, imaging showed no stroke or lesion but bilateral maxillary opacification and partial R sphenoid opacification. Treated with cefepime, high dose steroids. Eval by neurology with differential BPPV vs. labyrinthitis. Improving but ongoing imbalance with head turn or eye movement. No room spinning sensation. No otalgia, otorrhea, hearing change. No prior otologic history or surgery. History of allergic rhinitis. No history of chronic or recurrent acute sinusitis. No nasal congestion, discolored drainage, hyposmia currently. Afebrile, normal WBC, negative procalcitonin CT sinus per my read with minimal R sphenoid disease without bony erosion and persistent maxillary opacification. Allergies Allergy/AdvReac Type Severity Reaction Status Date / Time azithromycin [From Zithromax] Allergy Severe Hives Verified 01/28/23 10:13 dihydroergotamine Allergy Severe "THROAT Verified 01/28/23 10:13 SHUTS DOWN" ketorolac Allergy Intermediate HIVES Verified 01/28/23 14:34 Penicillins Allergy Intermediate Hives Verified 01/28/23 10:13 Home Medications Medication Instructions Recorded Confirmed Type ascorbic acid (vitamin C) 500 mg 500 mg PO QAM 11/11/17 01/28/23 History tablet (Vitamin C) conjugated estrogens 0.625 mg/gram 1 applic vaginal 2XWK 11/11/17 01/28/23 History vaginal cream (Premarin) fluticasone propionate 50 1 spray intranasal DAILY PRN 11/11/17 01/28/23 History mcg/actuation nasal Allergy Symptoms spray,suspension (Flonase Allergy Relief) folic acid 400 mcg tablet 400 mcg PO QAM 11/11/17 01/28/23 History lysine 500 mg tablet (L-Lysine) 500 mg PO DAILY PRN Cold Sore(s) 11/11/17 01/28/23 History selenium 200 mcg tablet (SelenoMax) 200 mcg PO QAM PRN illness 11/11/17 01/28/23 History sennosides 8.6 mg-docusate sodium 1 tab PO BID PRN Constipation 11/11/17 01/28/23 History 50 mg tablet (Senna-S) sumatriptan succinate 100 mg 100 mg PO UD PRN Migraine Headache 11/11/17 01/28/23 History tablet (Imitrex) cholecalciferol (vitamin D3) 125 5,000 units PO QAM 07/03/18 01/28/23 History mcg (5,000 unit) tablet (Vitamin D3) meperidine (PF) 100 mg/mL 1 ml IM DIRECTED PRN Migraine 07/03/18 01/28/23 History injection solution Headache multivitamin (Multiple Vitamins 1 tab PO QAM 07/03/18 01/28/23 History tablet) ondansetron 4 mg disintegrating 4 mg PO Q6H PRN nausea and 09/07/20 01/28/23 Rx tablet vomiting #20 tabs ibuprofen 800 mg tablet 800 mg PO DIRECTED PRN Pain 09/26/20 01/28/23 History phenazopyridine 100 mg tablet 100 mg PO TID PRN bladder spasms 10/04/20 01/28/23 Rx (Pyridium) #10 tabs galcanezumab-gnlm 120 mg/mL 120 mg subcut MONTHLY 10/25/22 01/28/23 History subcutaneous syringe (Emgality) cephalexin 500 mg capsule 500 mg PO BID 01/28/23 01/28/23 History levothyroxine 25 mcg tablet 25 mcg PO QAM 01/28/23 01/28/23 History Patient History Medical History Hypothyroidism Acute viral labyrinthitis Stroke-like symptoms Hydronephrosis Calculus of distal right ureter Right ureteral stone Hydronephrosis, right Osteoporosis Lyme disease History of kidney stones Patent foramen ovale (07/27/12) Migraine headache Surgical History H/O bilateral oophorectomy History of hysterectomy Family History Mother Cervical cancer Social History Smoking Status: Never smoker Hx Alcohol Use: No Hx Substance Use: No Preferred Language: Icelandic Communication Ability: Effective Head Butler Required: No Beliefs That Will Affect Care: None Current Living Situation: Spouse Other Information That Helps Us Care for You: Yes Feels Safe at Home: Yes Safety Concerns: Feels Safe At This Time Assistive Devices: Glasses Review of Systems Review of Systems: A 10-point ROS is negative except as noted above Physical Exam Physical Exam: General: No acute distress, nonlabored respirations Face: normal facial motion Eyes: Extraocular motion is intact. Normal sclera and conjunctiva Ears: External auditory canals are clear. Tympanic membrane is intact and the middle ear is aerated bilaterally. Nose: no external deformity, nares patent. No rhinorrhea or epistaxis. Oral cavity: clear Oropharynx: clear, tonsils absent Neck: soft, no masses or lymphadenopathy CN II-XII intact Neck soft and supple, no meningismus Procedure: Diagnostic nasal endoscopy Indication: Sinusitis Details: Following the application of topical lidocaine and afrin, the bilateral nasal cavities were examined with a 0-degree 4-mm rigid endoscope. The septum was in the midline position. Examination of the left side revealed a clear middle meatus and sphenoethmoid recess. There was no mucopurulence or polyposis. Examination of the right side revealed a clear middle meatus and mild edema in the sphenoethmoid recess. There was no mucopurulence or polyposis. The nasopharynx was clear. The turbinates were hypertrophied in size and responded to topical decongestant spray. The patient tolerated the procedure well. Results & Data Vital Signs (Past 12 Hours) Vital Signs Temp Pulse Pulse Resp BP Pulse Ox O2 Del Method 01/31/23 11:21 36.5 C 69 16 131/81 99 Room Air 01/31/23 08:20 36.0 C L 70 14 123/73 96 Room Air 01/31/23 08:10 71 12 121/76 100 Room Air 01/31/23 08:00 63 8 L 102/68 96 Nasal Cannula 01/31/23 07:53 36.3 C L 68 8 L 93/66 L 95 Nasal Cannula 01/31/23 07:00 73 01/31/23 03:30 36.4 C L 62 14 132/88 96 Room Air O2 Flow Rate 01/31/23 11:21 01/31/23 08:20 0 01/31/23 08:10 0 01/31/23 08:00 2 01/31/23 07:53 4 01/31/23 07:00 01/31/23 03:30 PG Care Time/CCT Total # of Minutes Spent Total Time Spent with Patient: Total time spent is greater than 50% in coordination of care (as documented) at patient's floor/unit and/or counseling patient: Coding Level of Care Code 67453 IN/OBS CONSULT LVL 4,60M (25 - SIGNIFICANT, SEPARATELY IDENTIFIABLE ) Diagnoses Sinusitis J01.30 Chronicity: acute Recurrence: not specified as recurrent Sinusitis location: sphenoidal Imbalance R26.89 CPT Codes Nasal Endoscopy, Dx - 15419 ([id number]) (1) Sinusitis Chronicity: acute Recurrence: not specified as recurrent Sinusitis location: sphenoidal Qualified Code(s): J01.30 - Acute sphenoidal sinusitis, unspecified
[2023-01-31] MEDS: ONDANSETRON INJ 2 MG/ML 2 ML VIAL IV PRN (16:15)
[2023-01-31] MEDS ORDERED: ENOXAPARIN INJ 40 MG/0.4 ML SYR SQ SCH (21:00)
[2023-02-01] MEDS: CEFEPIME 2,000 MG in SYRINGE 0 ML IV SCH ×2 (02:58→10:07)
[2023-02-01 06:41] LABS: Basophils # (auto) 0.03 K/uL (0.00-0.20); Basophils % (auto) 0.5 %; Eosinophils # (auto) 0.03 K/uL (0.00-0.50); Eosinophils % (auto) 0.5 %; Hematocrit (blood only) 36.2 % (37.0-47.0); Hemoglobin 12.1 g/dl (12.0-16.0); Immature Granulocytes # (auto) 0.01 K/uL (0.01-0.20); Immature Granulocytes % (auto) 0.2 %; Lymphocytes # (auto) 1.21 K/uL (1.20-3.40); Lymphocytes % (auto) 21.3 %; Mean Corpuscular Hemoglobin 29.4 pg (25.0-34.0); Mean Corpuscular Hgb Conc 33.4 g/dL (32.0-36.0); Mean Corpuscular Volume 88.1 fL (80.0-100.0); Monocytes # (auto) 0.71 K/uL (0.11-0.59); Monocytes % (auto) 12.5 %; Neutrophils # (auto) 3.68 K/uL (1.40-6.50); Platelet Count 201 K/uL (130-400); RDW Coefficient of Variation 12.6 % (11.5-14.5); RDW Standard Deviation 40.9 fL (36.4-46.3); Red Blood Count 4.11 M/uL (4.20-5.40); White Blood Count 5.67 K/ul (4.8-10.8)
[2023-02-01 06:54] LABS: Albumin Globulin Ratio 1.7 (0.9-2); Albumin Level 3.9 gm/dl (3.4-5.0); BUN Creatinine Ratio 18.1 (10-20); Bilirubin,Total 0.3 mg/dl (0.2-1.0); Creatinine Clr Calc Pharmacy 69.3 ml/min; Est GFR (African American) 90.1 ml/min; Est GFR (Non-African American) 77.7 ml/min; Globulin 2.3 gm/dl (2.5-4.0); Phosphorus 2.9 mg/dl (2.5-4.9); Potassium 3.8 mmol/L (3.5-5.1); Total Protein 6.2 gm/dl (6.0-8.3)
[2023-02-01] MEDS: predniSONE 20 MG TAB PO SCH (09:20)
[2023-02-01] MEDS: FOLIC ACID 400 MCG TAB PO SCH (09:20)
[2023-02-01] MEDS: DOCUSATE SODIUM 100 MG CAP PO SCH (09:20)
[2023-02-01] MEDS: DOXYCYCLINE HYCLATE 100 MG CAP PO SCH (09:20)
[2023-02-01] MEDS: ASPIRIN 81 MG ECTAB PO SCH (09:20)
[2023-02-01] MEDS: ASCORBIC ACID 500 MG TAB PO SCH (09:20)
[2023-02-01] MEDS: PANTOprazole 40 MG TAB PO SCH (09:20)
[2023-02-01] MEDS: CHOLECALCIFEROL 5,000 UNITS 125 MCG TAB PO SCH (09:20)
--- NOTE | 2023-02-01 10:00 | Urology Progress Note ---
Date of Service February 01, 2023 Assessment & Plan (1) Left ureteral calculus: (2) Hydronephrosis, left: Plan: - Pt POD#1 s/p cystoscopy, retrograde pyelogram and left ureteral stent placement - Doing well, progressing as expected - Afebrile, lab work reviewed - creatinine 0.83, WBC 5.67 - Tolerating left ureteral stent with minimal bother - Okay to d/c from perspective when medically stable - Recommend d/c with course Tamsulosin, prn Pyridium and prn oxybutynin for stent management - Expected clinical course reviewed, all questions answered - Will arrange outpatient follow-up with our service to discuss definitive stone removal - will sign off Admission and Anticipated Discharge Date Admission Date: January 28, 2023 Subjective Patient seen and examined at bedside this morning, chart reviewed No acute issues overnight Tolerating stent with minimal bother Voiding spontaneously Denies nausea, vomiting, fever or chills Review of Systems Constitutional: as per Subjective / HPI Gastrointestinal: as per Subjective / HPI Genitourinary: as per Subjective / HPI Physical Exam Physical Exam: General: well-appearing, no acute distress HEENT: Normocephalic, mucous membranes moist Pulmonary: Nonlabored respirations Abdomen: Nondistended Extremities: Moves all 4 spontaneously Neuro: No gross deficits Psych: alert and oriented, normal mood Skin: Warm, dry, no rashes noted Results & Data Vital Signs (Past 12 Hours) Vital Signs Temp Pulse Pulse Resp BP Pulse Ox O2 Del Method 02/01/23 07:43 36.8 C 86 18 121/74 95 Room Air 02/01/23 03:00 36.6 C 64 19 107/69 95 Room Air 01/31/23 23:00 81 01/31/23 23:00 36.6 C 77 18 118/74 96 Room Air PG Care Time/CCT Total # of Minutes Spent Total Time Spent with Patient: Total time spent is greater than 50% in coordination of care (as documented) at patient's floor/unit and/or counseling patient: Coding Level of Care Code 45552 SUB INP/OBS CARE 1/25MIN Diagnoses Left ureteral calculus N20.1 Hydronephrosis, left N13.30
--- NOTE | 2023-02-01 13:32 | Discharge Summary ---
Discharge Summary Date of Service February 01, 2023 Notes For Next Care Provider Please ensure follow up with Urology, Neurology and ENT Medication Changes From Visit Doxycycline 100mg BID x 10 days Medrol Dose pack Admission HPI Per Admitting Provider Ms. 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 She didn't feel like she lost consciousness, but felt that she would have fallen if she stood up. She had her vitals done at the office and was advised to come to the ED for further evaluation and management. She currently denies double or blurry vision. If she turns her head or has a hard time focusing. No history of TIA/CVA . This morning, no slurred speech; noted to be talking slower. Noted she was struggling more on the left side and was weaker overall. Patient does have a history of hemiplegic and complex migraines with aura. She follows with Dr. Pierre and was diagnosed a few years ago and takes sumatriptan and Emgality. She woke normally at 0530; at 0700 she ate two bags of quarter instant oatmeal. She is taking Cephalexin, day 09/07 today for sinusitis which started the day before with discomfort at maxillary sinus with thick sputum with productive cough. She recently had air travel to [place] over but does not report any additional stressors during her trip. In the ED Head CT, neck/had CTA negative for stroke, SDH. Brain MRI pending. Chest CTA obtained due to history of PFO without sign of AAA or PE. No leukocytosis and BMP unremarkable. Was recently started on Levothyroxine right before . She had a thyroid US without nodule. When her headaches start, she has numbness, dizziness, aura. Has been complaining of chest pain over the past few months at rest; anterior chest pain with left shoulder/back radiation with palpitations. She does try to capture ECG on her watch but it says unable to analyze. Pt denies WOODARD, dizziness, slurred speech, SOB, stefania pain or tenderness, swelling, recent falls or trauma. Patient with history of PFO, migraines with aura and follows with Dr. Pierre and was diagnosed with hemiplegic and complex migraine. patient denies tobacco, alcohol, or recretational drug use. Since she arrived, when she stands and closes her eyes, she can't focus on balance. Her nausea is improved. She reports it at wavy valero, but not spinning. On this admission will complete work-up for ruling out stroke with neurology consult, PT/OT/ST, await brain MRI. Suspect patient has acute viral labyrinthitis secondary to current sinusitis and with positive vestibular ocular reflex on exam. Patient with known hemiplegic and complex migraines which could be contributing symptoms. Continue antibiotic course with IV Rocephin and start on steroids x5 days with meclizine as needed. Patient with known history of ureteral calculus, currently without JON will obtain KUB and start daily Protonix IV. For completeness will trend troponin and obtain echocardiogram with a repeat ECG for comparison in a.m. Patient will be admitted for further evaluation and management. Please see A/P for further details. Admission Exam Per Admitting Provider Vitals signs as noted above General Appearance:Moderately built and nourished, no apparent distress Head: normocephalic, Atraumatic Eyes: normal inspection, EOMI Neck: supple, Trachea midline Respiratory/Chest: Normal breath sounds, CTA, No accessory muscle use Cardiovascular: S1, S2, No murmur Abdomen/GI:Soft, Non tender, Bowel sounds present Extremities/Musculoskeletal:normal inspection, no edema Neurologic/Psych:AAOX3, slow to respond, struggles with memory occasionally, + vestibulocochlear reflex impaired, left lower extremity 4/5 otherwise no focal deficits Skin: normal color, warm Principal Dx & Hospital Course #1 = Principal Diagnosis (1) Stroke-like symptoms: (2) Acute viral labyrinthitis: (3) Sinusitis: (4) Migraine headache: (5) Patent foramen ovale: (6) Hypothyroidism: Plan Patient is a 57-year-old female with history of nephrolithiasis, chronic obstructive uropathy, hypothyroidism, complex migraine, PFO who presented with history of balance issues resulting in ambulatory dysfunction, dizziness, difficulty with focusing, retrosternal chest tightness, chronic tinnitus concerning for possible CVA. Stroke-Like Symptoms: Presented with dizziness, difficulty with focusing, retrosternal chest tightness, chronic tinnitus Head CT and brain MRI w/o contrast without signs of stroke Head and neck CTA suggesting complete opacification of maxillary sinuses and infection in the sphenoid sinus as well Confirmed with repeat MRI with contrast and CT of the sinuses as well- noted no acute abnormalities or enhancement, confirmed the sinusitis in the maxillary and sphenoid sinus Received aspirin while in the ED Recently had lipid panel as outpatient, recent lipid panel from 01/12/23: TG 83, LDL 175, HDL 62 AM [id number] showed prediabetes and pt is aware Neurochecks, PT OT, speech eval Neuro consult-appreciate recs -believes related to BPPV vs viral labyrinthitis -consider benzo for treatment if symptoms severe Valium ordered q12h PRN PT for vestibular training Treated with Prednisone, aspirin, prn meclizine. Pt would like Atorvastatin 20mg discontinued as she noted body aches in the past. ENT consult -case discussed with ENT surgeon Dr. Aguilar on 01/30. Recommended dedicated CT sinus w/wo contrast -CT sinus confirming severe maxillary sinus infection, R sphenoid sinusitis -ENT evaluated on 02/01, advised that symptoms are more likely vestibular neuronitis, advising supportive care, and discharging with doxycycline 100mg BID x 10 days and medrol dose pack -Advised pt will need outpatient audiogram, to call [phone] for appt Neurology and ENT follow up after discharge Maxillary and Sphenoidal Sinusitis Pt notes she had URI symptoms before starting treatment for sinusitis outpt with Keflex Head and neck CTA suggesting complete opacification of bilateral maxillary sinuses and R sphenoid sinus as well Keflex was switched to Rocephin on admission, abx broadened even further for pseudomonal coverage with cefepime (Pt requesting diflucan while on abx) Biofire ordered to rule out an underlying viral infection- has been negative Consider ENT consult -case discussed with Dr. Aguilar on 01/30. Recommended dedicated CT sinus w/wo contrast -CT sinus confirming severe maxillary sinus infection, R sphenoid sinusitis -ENT evaluated on 02/01, advised that symptoms are more likely vestibular neuronitis, advising supportive care, and discharging with doxycycline 100mg BID x 10 days and medrol dose pack -Advised pt will need outpatient audiogram, to call [phone] for appt ENT followup after discharge Lyme Infection Pt with positive IgG, indicating past infection Noted that this was positive as well in 2019 Given current symptoms, started on doxycycline once more empirically while further testing pending Discharged with doxycycline for 10 days. Chest pain PACs H/O PFO Esophagitis Atypical Patient/family reports intermittent ongoing chest pain for many months. EKG with NSR, RBBB Troponins have remained normal Echo noting atrial septal aneurysm with small R to left shunt, recommending daily aspirin for stroke prophylaxis. Chest CTA noting esophagitis, possible cause of her chest pain. Started on pantoprazole, continue Consider cardiology consult- pt would like to follow up outpt Consider GI consult/outpt followup for possible EGD for esophagitis- pt would like to follow up outpt Chronic obstructive uropathy Nephrolithiasis Hydronephrosis Pt currently asymptomatic, notes that she has struggled with heavy kidney stone burden in the past, requiring transfer to [place] due to elevated kidney function. CTA chest noting partially seen left sided 4mm obstructive stone and mild hydronephrosis KUB read as no hydronephrosis Renal ultrasound confirming left sided obstruction and hydronephrosis, question of left ureteral dilation CT abd/pelvis not recommended at that time by radiology due to previous contrast use CT abd pelvis ordered on 01/30- noted 5mm obstructing stone with improved hydronephrosis, stones also present in the left kidney Continue to monitor kidney function Urology consulted- appreciate recs -recommended dedicated CT abd/pelvis -concern about pt undergoing anesthesia with current neurological symptoms -given stability and normal kidney function, recommending outpt followup but NPO after midnight just in case -pt requesting this be addressed inpatient, notes she was traumatized by her previous experience -would like further evaluation by anesthesia -s/p stent placement on 01/31 with Urology Discharged with prn oxybutynin, pyridium and daily Flomax Constipation Moderate amount of stool noted on KUB Scheduled colace, has prn Miralax and Milk of Mag ordered PCP follow up Hemiplegic and complex migraines: Chronic stable Has chronic auras and notes numbness and dizziness associated with these symptoms Takes sumatriptan and Emgality subcu monthly Consider Migraine cocktail with Compazine and Benadryl while here- pt has toradol allergy though she states she can tolerate ibuprofen PRN imitrex Notes reglan helped her nausea in the past Neurology follow up Hypothyroidism: Chronic stable Recent diagnosis as of last month Started on levothyroxine, pt concerned that the new medication might be co ntributing to her symptoms. Discontinued levothyroxine TSH elevated but T4 wnl, suggesting subclinical hypothyroidism Also noted that pt is sick and in the hospital which can affect thyroid levels Repeat levels in 6-8 weeks, consider resuming levothyroxine then PCP follow up Discharge Exam General: Alert, oriented. No acute distress Skin: No noted rashes or bruises Psych: Appropriate mood and affect Neuro: No gross deficits HEENT: NC/AT Chest: Nontender to palpation. CV: RRR, Normal s1, s2. Resp: Breath sounds clear bilaterally, no increased effort of breathing. Abdomen: soft, nontender, nondistended. Extremities: No edema in lower extremities bilaterally. Updated Medication List Medication Instructions Recorded Confirmed Type ascorbic acid (vitamin C) 500 mg 500 mg PO QAM 11/11/17 01/28/23 History tablet (Vitamin C) conjugated estrogens 0.625 mg/gram 1 applic vaginal 2XWK 11/11/17 01/28/23 History vaginal cream (Premarin) fluticasone propionate 50 1 spray intranasal DAILY PRN 11/11/17 01/28/23 History mcg/actuation nasal Allergy Symptoms spray,suspension (Flonase Allergy Relief) folic acid 400 mcg tablet 400 mcg PO QAM 11/11/17 01/28/23 History lysine 500 mg tablet (L-Lysine) 500 mg PO DAILY PRN Cold Sore(s) 11/11/17 01/28/23 History selenium 200 mcg tablet (SelenoMax) 200 mcg PO QAM PRN illness 11/11/17 01/28/23 History sennosides 8.6 mg-docusate sodium 1 tab PO BID PRN Constipation 11/11/17 01/28/23 History 50 mg tablet (Senna-S) sumatriptan succinate 100 mg 100 mg PO UD PRN Migraine Headache 11/11/17 01/28/23 History tablet (Imitrex) cholecalciferol (vitamin D3) 125 5,000 units PO QAM 07/03/18 01/28/23 History mcg (5,000 unit) tablet (Vitamin D3) meperidine (PF) 100 mg/mL 1 ml IM DIRECTED PRN Migraine 07/03/18 01/28/23 History injection solution Headache multivitamin (Multiple Vitamins 1 tab PO QAM 07/03/18 01/28/23 History tablet) ondansetron 4 mg disintegrating 4 mg PO Q6H PRN nausea and 09/07/20 01/28/23 Rx tablet vomiting #20 tabs ibuprofen 800 mg tablet 800 mg PO DIRECTED PRN Pain 09/26/20 01/28/23 History phenazopyridine 100 mg tablet 100 mg PO TID PRN bladder spasms 10/04/20 01/28/23 Rx (Pyridium) #10 tabs galcanezumab-gnlm 120 mg/mL 120 mg subcut MONTHLY 10/25/22 01/28/23 History subcutaneous syringe (Emgality) aspirin 81 mg tablet,delayed 81 mg PO DAILY #30 tabs 02/01/23 Rx release (Adult Aspirin Regimen) docusate sodium 100 mg capsule 100 mg PO BID #60 caps 02/01/23 Rx doxycycline hyclate 100 mg tablet 100 mg PO BID #28 tabs 02/01/23 Rx methylprednisolone 4 mg tablets in See Rx Instructions .Route 02/01/23 Rx a dose pack (Medrol (Enrique)) .COMPLEX #21 ea oxybutynin chloride 5 mg tablet 5 mg PO Q8H PRN bladder spasms #90 02/01/23 Rx tabs pantoprazole 40 mg tablet,delayed 40 mg PO DAILY #30 tabs 02/01/23 Rx release phenazopyridine 200 mg tablet 200 mg PO Q8H 6 doses #6 tabs 02/01/23 Rx (Pyridium) tamsulosin 0.4 mg capsule 0.4 mg PO DAILY #30 caps 02/01/23 Rx oxycodone 5 mg tablet 5 mg PO Q6H PRN pain #8 tabs 02/03/23 02/03/23 Rx Hospital Stay Data Consultations 01/28/23 10:16 Consult Neurology Routine ED Decision to Admit Stat 01/30/23 09:04 Consult Urology Routine 01/30/23 16:39 Consult Otolaryngology (Head and Neck) Routine Procedures Performed Operation Date: 01/31/23 08:00 Actual Procedures p Cystoscopy, left retrograde pyelogram, left ureteral stent insertion(Left) - Urbano Mcclain MD Diagnostic Imagining Performed 01/28/23 09:09 CT angio chest dissec wo/w con Stat CT angio head w con Stat CT angio neck with con Stat CT head/brain wo con Stat 01/28/23 09:57 MR brain wo con Stat 01/28/23 12:04 US renal/blad retro comp Routine 01/30/23 08:00 MRI Brain [MR brain wo/w con] Routine 01/30/23 10:16 CT Abd and Pelvis [CT abd pelvis wo con] Urgent 01/30/23 17:37 CT sinus wo/w con Urgent 01/31/23 07:30 FL retrograde includes kub Routine Chest CTA 01/28/23 09:09 CT angio chest dissec wo/w con HISTORY: 57 years-old Female chest pain and stroke symptoms acute chest pain COMPARISON: CT abdomen and pelvis 10/25/2022 TECHNIQUE: CTA of the chest was obtained both with and without the use of IV contrast. 3-D coronal and sagittal maps were obtained and submitted for review. A dose lowering technique was used consistent with the principals of GENE. FINDINGS: CTA: No intramural or mediastinal hematoma. The heart is mildly enlarged. Trace pericardial effusion. No thoracic aortic aneurysm or dissection. The ascending thoracic aorta at the level of the main pulmonary artery measures 3.6 cm. The imaged great vessels appear patent. Unremarkable pulmonary artery. CT CHEST: Unremarkable thyroid. No lymphadenopathy. No pneumothorax, pleural effusion or pulmonary edema. 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 Additional bronchial atresia of the basal left lower lobe. The right lung is clear. No acute upper abdominal abnormality. There are a few subcentimeter hypodensities of the liver which are too small to characterize, likely cysts. Splenomegaly. Probable right renal cysts. Partially imaged mild left-sided hydronephrosis. On obstructing calculi left kidney measure up to 4 mm. Mild mid to distal esophageal wall thickening. IMPRESSION: 1. Left nephrolithiasis with partially imaged mild left-sided hydronephrosis. Correlation with renal ultrasound recommended along with KUB radiograph in order to exclude a ureteral calculus (specifically, conducting a CT abdomen and pelvis at this time would not be advised secondary to the IV contrast administered which would obscure a ureteral calculus). 2. Unremarkable thoracic aorta. No pulmonary emboli identified. 3. 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 4. Mild mid to distal esophageal wall thickening may represent esophagitis. ACT 112: Negative or not required by law. The above report was generated using voice recognition software. It may contain grammatical, syntax or spelling errors. Electronically signed by: Tony Saab M.D. 01/28/2023 10:[address] 01/28/23 09:09 CT angio head w con, CT head/brain wo con, CT angio neck with con CLINICAL HISTORY: 57 years-old Female with neuro deficit, acute stroke suspected. Acute stroke like symptoms COMPARISON STUDY: None TECHNIQUE: Unenhanced axial CT scan of the brain is performed. Subsequently, following the IV administration of 116 cc of Optiray, CT angiogram of the head and neck was performed from the arch to the skull apex. Images are reviewed in the axial, sagittal, and coronal planes. 3-D MIPS images are created and assessed. IV contrast was administered without complication. All measurements were obtained according to NASCET criteria. A dose lowering technique was utilized adhering to the principles of ALARA. CT DOSE: 1849.81 mGy.cm FINDINGS: CT BRAIN: There is no acute intracranial hemorrhage, midline shift, hydrocephalus, intracranial mass, territorial ischemia or abnormal extra-axial collections. No abnormal intra-axial or extra-axial enhancement. Mastoid air cells and middle ear cavities are clear. No calvarial fracture.. Unremarkable soft tissues. Complete opacification of the maxillary sinuses with moderate mucosal thickening of the sphenoid sinuses with air-fluid level.. Cerebrovascular calcifications. CT ANGIOGRAM OF THE HEAD AND NECK: Three-vessel morphology of the thoracic aortic arch. Patency of the innominate and image subclavian arteries. The internal carotid arteries are patent. The bilateral anterior and middle cerebral arteries are also patent. The vertebrobasilar system and posterior cerebral arteries are widely patent. There is no aneurysm, high-grade stenosis, or proximal branch occlusion identified. Dural sinuses appear patent. The lung apices are clear. Mild heterogeneity of the thyroid. Degenerative changes of the cervical spine. IMPRESSION: 1. No acute intracranial abnormality. 2. Unremarkable CTA of the head and neck. 3. Paranasal sinus disease as above with probable acute sphenoid sinusitis. ACT 112: Negative or not required by law. The above report was generated using voice recognition software. It may contain grammatical, syntax or spelling errors. Electronically signed by: Tony Saab M.D. 01/28/2023 9:51 AM Head CTA 01/28/23 09:09 CT angio head w con, CT head/brain wo con, CT angio neck with con CLINICAL HISTORY: 57 years-old Female with neuro deficit, acute stroke suspected. Acute stroke like symptoms COMPARISON STUDY: None TECHNIQUE: Unenhanced axial CT scan of the brain is performed. Subsequently, following the IV administration of 116 cc of Optiray, CT angiogram of the head and neck was performed from the arch to the skull apex. Images are reviewed in the axial, sagittal, and coronal planes. 3-D MIPS images are created and as sessed. IV contrast was administered without complication. All measurements were obtained according to NASCET criteria. A dose lowering technique was utilized adhering to the principles of ALARA. CT DOSE: 1849.81 mGy.cm FINDINGS: CT BRAIN: There is no acute intracranial hemorrhage, midline shift, hydrocephalus, intracranial mass, territorial ischemia or abnormal extra-axial collections. No abnormal intra-axial or extra-axial enhancement. Mastoid air cells and middle ear cavities are clear. No calvarial fracture.. Unremarkable soft tissues. Complete opacification of the maxillary sinuses with moderate mucosal thickening of the sphenoid sinuses with air-fluid level.. Cerebrovascular calcifications. CT ANGIOGRAM OF THE HEAD AND NECK: Three-vessel morphology of the thoracic aortic arch. Patency of the innominate and image subclavian arteries. The internal carotid arteries are patent. The bilateral anterior and middle cerebral arteries are also patent. The vertebrobasilar system and posterior cerebral arteries are widely patent. There is no aneurysm, high-grade stenosis, or proximal branch occlusion identified. Dural sinuses appear patent. The lung apices are clear. Mild heterogeneity of the thyroid. Degenerative changes of the cervical spine. IMPRESSION: 1. No acute intracranial abnormality. 2. Unremarkable CTA of the head and neck. 3. Paranasal sinus disease as above with probable acute sphenoid sinusitis. ACT 112: Negative or not required by law. The above report was generated using voice recognition software. It may contain grammatical, syntax or spelling errors. Electronically signed by: Tony Saab M.D. 01/28/2023 9:51 AM Neck CTA 01/28/23 09:09 CT angio head w con, CT head/brain wo con, CT angio neck with con CLINICAL HISTORY: 57 years-old Female with neuro deficit, acute stroke suspected. Acute stroke like symptoms COMPARISON STUDY: None TECHNIQUE: Unenhanced axial CT scan of the brain is performed. Subsequently, following the IV administration of 116 cc of Optiray, CT angiogram of the head and neck was performed from the arch to the skull apex. Images are reviewed in the axial, sagittal, and coronal planes. 3-D MIPS images are created and assessed. IV contrast was administered without complication. All measurements were obtained according to NASCET criteria. A dose lowering technique was utilized adhering to the principles of ALARA. CT DOSE: 1849.81 mGy.cm FINDINGS: CT BRAIN: There is no acute intracranial hemorrhage, midline shift, hydrocephalus, intracranial mass, territorial ischemia or abnormal extra-axial collections. No abnormal intra-axial or extra-axial enhancement. Mastoid air cells and middle ear cavities are clear. No calvarial fracture.. Unremarkable soft tissues. Complete opacification of the maxillary sinuses with moderate mucosal thickening of the sphenoid sinuses with air-fluid level.. Cerebrovascular calcifications. CT ANGIOGRAM OF THE HEAD AND NECK: Three-vessel morphology of the thoracic aortic arch. Patency of the innominate and image subclavian arteries. The internal carotid arteries are patent. The bilateral anterior and middle cerebral arteries are also patent. The vertebrobasilar system and posterior cerebral arteries are widely patent. There is no aneurysm, high-grade stenosis, or proximal branch occlusion identified. Dural sinuses appear patent. The lung apices are clear. Mild heterogeneity of the thyroid. Degenerative changes of the cervical spine. IMPRESSION: 1. No acute intracranial abnormality. 2. Unremarkable CTA of the head and neck. 3. Paranasal sinus disease as above with probable acute sphenoid sinusitis. ACT 112: Negative or not required by law. The above report was generated using voice recognition software. It may contain grammatical, syntax or spelling errors. Electronically signed by: Tony Saab M.D. 01/28/2023 9:51 AM Brain MRI 01/28/23 09:57 MR brain wo con CLINICAL HISTORY: Strokelike symptoms TECHNIQUE: Multiplanar and multisequence MR images of the brain were obtained without intravenous contrast. Comparison: Comparison is made to CTA head and neck 01/28/2023 FINDINGS: No abnormal restricted diffusion is identified. The white matter is unremarkable. The ventricular system is normal in appearance. No mass is seen. There is no mass effect or midline shift. There is no evidence of acute intraparenchymal hemorrhage. No extra axial fluid collections are seen. The corpus callosum, pituitary gland, and cerebellar tonsils appear grossly unremarkable. Flow voids of the major intracranial arterial vessels are identified. Sinus mucosal thickening is seen most prominent in the bilateral maxillary sinuses. IMPRESSION: No acute abnormality and in particular no evidence of acute infarct. Sinus disease is noted. ACT 112: Negative or not required by law. Electronically signed by: Darian Victor M.D. 01/28/2023 12:44 PM KUB X-Ray 01/28/23 10:16 XR KUB/Abdomen 1 view CLINICAL HISTORY: left hydronephrosis TECHNIQUE: 1 view of the abdomen was obtained. Comparison: Comparison is made to abdomen radiograph 10/16/[address] abdomen pelvis 10/25/2022 FINDINGS: Contrast is noted in the bilateral collecting systems and bladder. The osseous structures are grossly unremarkable. The bowel gas pattern is nonobstructive. A moderate amount of stool is noted within the large bowel. IMPRESSION: No hydronephrosis. ACT 112: Negative or not required by law. Electronically signed by: Darian Victor M.D. 01/28/2023 2:54 PM Renal Ultrasound 01/28/23 12:04 RENAL ULTRASOUND HISTORY: Renal calculi with left-sided hydronephrosis Hydranephrosis COMPARISON: CTA chest and KUB studies of same day, CT abdomen and pelvis 10/25/2022. FINDINGS: Right kidney: 10.5 cm. No hydronephrosis. Cyst of the interpolar right kidney, 9 mm. Nonobstructing calculi measure up to 4 mm. Normal corticomedullary differentiation and cortical thickness. Left kidney: 10.5 cm. Mild left-sided hydronephrosis redemonstrated. Left renal calculi measuring up to 7 mm. Normal corticomedullary differentiation and cortical thickness. Bladder: No bladder wall thickening. The bilateral ureteral jets were not identified. IMPRESSION: 1. Mild left-sided hydronephrosis again noted which is also seen on the CTA chest and KUB studies of same day. Also noted there is left ureteral dilation to the level of the pelvis on the same day KUB. Findings may be secondary to an obstructing ureteral calculus which is not visualized. 2. Bilateral nephrolithiasis. ACT 112: Negative or not required by law. Electronically signed by: Tony Saab M.D. 01/28/2023 3:12 PM Brain MRI 01/30/23 08:00 MRI OF THE BRAIN WITHOUT AND WITH IV CONTRAST CLINICAL HISTORY: persistent N/V, headache COMPARISON STUDY: Head CT, CTA of the head and MRI of the brain January 28, 2023. TECHNIQUE: Utilizing a 1.5 Alyssia magnet and dedicated coil, multiplanar, multiecho imaging of the brain was performed pre and postcontrast administration. IV administration of 6 mL of Gadavist contrast was uneventful. FINDINGS: There are no foci of restricted diffusion to suggest acute infarct. No acute intracranial hemorrhage, midline shift or mass effect is present. Ventricular system is unremarkable. Basal cisterns are patent. Flow-voids for the major intracranial vessels are present. There is no intracranial mass or pathologic enhancement. Calvarial signal is normal. Minimal white matter T2 hyperintensity is present. This is of doubtful significance. The appearance of the brain is unchanged. Sphenoid sinus air-fluid level is again noted. The maxillary sinuses are opacified. This is unchanged. IMPRESSION: 1. No acute intracranial findings. 2. No intracranial mass or pathologic enhancement. 3. No change in a sphenoid sinus air-fluid level and opacified maxillary sinuses. ACT 112: Negative or not required by law. Electronically signed by: Hoang Betancourt M.D. 01/30/2023 11:28 AM Abdomen/Pelvis CT 01/30/23 10:16 CT OF THE ABDOMEN AND PELVIS WITHOUT CONTRAST CLINICAL HISTORY: Bilateral flank pain. Evaluate for obstructive uropathy. COMPARISON STUDY: Renal ultrasound and KUB January 28, 2023. CT of the abdomen and pelvis October 25, 2022. TECHNIQUE: Axial images of the abdomen and pelvis were obtained without IV contrast. Images were reviewed in the axial, sagittal, and coronal planes. Automated exposure control was utilized for the study. A dose lowering technique was utilized adhering to the principles of ALARA. FINDINGS: Lucency with hyperinflation of the lingula and anterior basal segment of the left lower lobe is unchanged. 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 No pneumatosis, free air or portal venous gas is present. Unenhanced images of liver, spleen, adrenal glands and pancreas are unremarkable. Punctate right renal calculus is present. Left renal calculi measure up to 4 mm. A 5 mm mid left ureteral calculus at the level of the mid SI joint results in mild left hydronephrosis. This has decreased since CT of January 28, 2023. No additional ureteral calculi are present. Pelvic calcifications represent phleboliths. No evidence for a bowel obstruction. There is no ascites or lymphadenopathy. The appendix is normal. IMPRESSION: 1. 5 mm mid left ureteral calculus results in mild left hydronephrosis which has decreased since CT of January 28, 2023. 2. Multiple left renal calculi. Punctate right renal calculus. No right ureteral calculi. No right hydronephrosis. ACT 112: Negative or not required by law. Electronically signed by: Hoang Betancourt M.D. 01/30/2023 11:[address] 01/30/23 17:37 CT sinus wo/w con CLINICAL HISTORY: noted opacification, r/o meningeal spread COMPARISON STUDY: Head CT and CTA of the head January 28, 2023. MRI of the brain performed earlier today. TECHNIQUE: Axial images of the sinuses were obtained before and after intravenous administration of 82 cc of Optiray 320 IV. Sagittal and coronal reconstructions were viewed. Automated exposure control was utilized for the study. A dose lowering technique was utilized adhering to the principles of ALARA. FINDINGS: Mastoid air cells are clear. The bilateral maxillary sinuses are opacified. The ostiomeatal complexes are occluded. Frontal sinuses are clear. F rontoethmoidal recesses are patent. There is mild ethmoid sinus mucosal thickening. The left sphenoethmoidal recess is patent. The right is occluded. Air-fluid level with secretions within the right sphenoid sinus is present. This was shown on prior head CT and MRI. No bony destruction is present. No intracranial extension is identified by CT. Orbits are unremarkable. Visualized portions of the face are unremarkable. IMPRESSION: 1. Air-fluid level within the right sinus with secretions. This suggests acute sinusitis. No CT evidence for intracranial extension. 2. Age indeterminate opacification of the bilateral maxillary sinuses with occluded bilateral ostiomeatal complexes. Occluded right sphenoethmoidal recess. ACT 112: Negative or not required by law. Electronically signed by: Hoang Betancourt M.D. 01/30/2023 6:22 PM Retrograde Pyelogram 01/31/23 07:30 FL retrograde includes kub CLINICAL HISTORY: LT SIDE STENT COMPARISON STUDY: CT of the abdomen and pelvis January 30, 2023. FLUOROSCOPY TIME: 7.6 seconds. Ka, r: 0.92 mGy FLUOROSCOPIC IMAGES: 1 FINDINGS: Fluoroscopy was provided during left retrograde pyelogram and left ureteral stent insertion. Proximal aspect of the left ureteral stent projects over the left collecting system. IMPRESSION: Fluoroscopy provided during left retrograde pyelogram and left ureteral stent insertion. ACT 112: Negative or not required by law. Electronically signed by: Hoang Betancourt M.D. 01/31/2023 8:01 AM Pending Results Patient Have Any Pending Studies at Discharge: No Discharge Instructions Given to Patient (Per Discharging Provider) Ms. 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 We treated you with IV antibiotics and steroids and your symptoms improved. You were seen by ENT and they recommended discharge with the antibiotic doxycycline 100mg twice a day for 10 days and steroids in the form of a medrol dose pack. Please stop taking the Keflex you have at home. They ask that you keep follow up to do an outpatient audiogram. Appointment can be set up by calling [phone]. You were also seen by Urology as you had obstructing kidney stones and had a stent placed on 01/31. They are recommending discharge with the medications oxybutynin as needed, pyridium as needed and daily Flomax to help. They ask that you keep close follow up with their office. We also ask that you follow up with GI for noted esophagitis on the images. Your PCP can refer you if needed. Discharging you with the medication pantoprazole to help. Please also follow up with cardiology for the echo findings. They recommend a daily aspirin 81mg to help. Please consider taking a statin or other medication to help with your high cholesterol levels. Please also follow up with your PCP about your thyroid levels. They will likely need to be repeated in 4-6 weeks once all the acute symptoms have resolved. Please stop taking the levothyroxine until you follow up. Encouraging the use of home Colace prescribed and as needed miralax to help with constipation. Please keep follow up with your PCP, Urology, Neurology and ENT as scheduled. It was a pleasure taking care of you while you were here! Total Time Total Time Spent Total Time Spent (In Minutes): > 30 minutes
[2023-02-01 14:27] LABS: 18KDIGG Band NON-REACTIVE; 23KDIGG Band NON-REACTIVE; 23KDIGM Band REACTIVE; 28KDIGG Band NON-REACTIVE; 30KDIGG Band NON-REACTIVE; 39KDIGG Band REACTIVE; 39KDIGM Band NON-REACTIVE; 41KDIGG Band REACTIVE; 41KDIGM Band NON-REACTIVE; 45KDIGG Band NON-REACTIVE; 58KDIGG Band REACTIVE; 66KDIGG Band NON-REACTIVE; 93KDIGG Band NON-REACTIVE; Lyme Antibodies, WB IgG NEGATIVE (NEGATIVE); Lyme Antibodies, WB IgM NEGATIVE (NEGATIVE)
[2023-02-03 09:09] LABS: Ehrlichia chaff DNA Bld Negative (Negative)
[2023-02-03 23:59] LABS: Q Fever IgG, Phase I NEGATIVE; Q Fever Phase I IgM Antibody NEGATIVE; Q Fever Phase II IgG Antibody NEGATIVE; Q Fever Phase II IgM Antibody NEGATIVE; R. typhi IgG Ab NOT DETECTED; R. typhi IgM Ab NOT DETECTED; RMSF IgG Ab NOT DETECTED; RMSF IgM Ab NOT DETECTED
[2023-02-04 06:37] LABS: Babesia microti DNA Not Detected (Not Detected)
== END 2023-02-01 16:29 | disposition home or self-care (01) | DRG 988 ==
LOC: ED 08:54 → EDINP 10:16 → SUATTDRO 10:16 → 2E 13:20

== ENCOUNTER 2023-10-15 16:54 | Observation (INO) ==
[2023-10-15 17:37] LABS: Basophils # (auto) 0.03 K/uL (0.00-0.20); Eosinophils # (auto) 0.07 K/uL (0.00-0.50); Eosinophils % (auto) 2.3 %; Hemoglobin 13.7 g/dl (12.0-16.0); Immature Granulocytes # (auto) 0.01 K/uL (0.01-0.20); Immature Granulocytes % (auto) 0.3 %; Lymphocytes % (auto) 32.8 %; Mean Corpuscular Hemoglobin 29.5 pg (25.0-34.0); Mean Corpuscular Hgb Conc 34.3 g/dL (32.0-36.0); Mean Platelet Volume 10.4 fL (9.4-12.4); Monocytes # (auto) 0.35 K/uL (0.11-0.59); Monocytes % (auto) 11.5 %; Neutrophils # (auto) 1.59 K/uL (1.40-6.50); Neutrophils % (auto) 52.1 %; Platelet Count 161 K/uL (130-400); RDW Coefficient of Variation 13.3 % (11.5-14.5); RDW Standard Deviation 41.7 fL (36.4-46.3); Red Blood Count 4.65 M/uL (4.20-5.40); White Blood Count 3.05 K/ul (4.8-10.8)
[2023-10-15 17:52] LABS: Alanine Aminotransferase 14 U/L (7-52); Albumin Globulin Ratio 2.1 (0.9-2); Albumin Level 4.7 gm/dl (3.4-5.0); Alkaline Phosphatase 75 U/L (34-104); Anion Gap 6 (3-11); Aspartate Aminotransferase 19 U/L (13-39); BUN Creatinine Ratio 16.2 (10-20); Bilirubin,Total 0.3 mg/dl (0.2-1.0); Blood Urea Nitrogen 16 mg/dl (6-23); Calcium 10.3 mg/dl (8.6-10.3); Carbon Dioxide 28 mmol/L (21-32); Chloride 107 mmol/L (98-107); Creatinine Clr Calc Pharmacy 53.5 ml/min; Est GFR (African American) 72.8 ml/min; Est GFR (Non-African American) 62.8 ml/min; Globulin 2.2 gm/dl (2.5-4.0); Glucose 91 mg/dl (70-99(Fasting)); Potassium 4.2 mmol/L (3.5-5.1); Sodium 141 mmol/L (136-145); Total Protein 6.9 gm/dl (6.0-8.3)
[2023-10-15 17:58] LABS: Troponin I High Sensitivity < 2.3 pg/ml (0-14)
--- NOTE | 2023-10-15 18:04 | XRay Report ---
XR chest 1V not portable CLINICAL HISTORY: Chest pain, nonspecific COMPARISON STUDY: Chest radiograph July 03, 2018. Chest CT January 28, 2023. FINDINGS: Lung volumes are normal. Lungs are clear. There is no pneumothorax or pleural effusion. Car diac size is normal. Mediastinal contours are normal. There is no evidence for pulmonary edema. Findi ngs consistent with bronchial ectasia within the lingula and left lower lobe are better depicted on p rior chest CT. IMPRESSION: No acute cardiopulmonary findings. No change in appearance of the chest. ACT 112: Negative or not required by law. Electronically signed by: Haong Betancourt M.D. 10/15/2023 6:03 PM
[2023-10-15 18:08] LABS: INR 1.1 (0.9-1.1); Partial Thromboplastin Time 27 Seconds (21-31); Prothrombin Time 11.4 Seconds (9.0-12.0)
[2023-10-15] MEDS: cefTRIAXone SODIUM 2,000 MG/50 ML BAG IV STA (19:18)
[2023-10-15 19:42] LABS: Lyme Screen Rflx Confirmation Positive (Negative)
[2023-10-15] MEDS: SODIUM CHLORIDE 0.9% 1,000 ML IV ONE (19:54)
[2023-10-15 19:55] LABS: Magnesium 2.1 mg/dl (1.7-2.4)
--- NOTE | 2023-10-15 19:56 | History & Physical Report ---
Date of Service October 15, 2023 Assessment & Plan (1) Exertional dyspnea: Plan: ? Symptomatic bradycardia (documented AV blocks on outpatient monitoring) Lyme disease status post extended doxycycline Rx IgG positive with IgM negative serology on testing today valvular heart disease (mild MR/TR, TTE 2022) hx PFO prediabetes, hemoglobin A1c of 5.4 last December 2022 hypothyroidism, TSH slightly elevated Leukopenia noted on outpatient testing last month with evidence of smudge cells as per report Admit to PCU Atropine as needed symptomatic bradycardia TTE, Cardiology consult Re: Symptomatic bradycardia (Patient known to [facility].) N.p.o. if with bradycardia overnight in anticipation of pacemaker procedure ID consult as per patient request re: abnormal Lyme test Hold off on additional antibiotic Rx until ID evaluation in given negative IgM Peripheral blood smear for leukopenia Inpatient hematology evaluation as per patient request for leukopenia Recheck outpatient TSH next month DVT prophylaxis. SCDs Full code Text document was generated using [employer] voice recognition software. It may contain grammatical or spelling errors. Kindly contact undersigned for clarification of any documentation item in question. History of Present Illness Chief Complaint: Worsening weakness, exertional SOB Primary Care Provider: Salvador Pike MD History obtained from patient, family, and records. Medical history significant for valvular heart disease (mild MR/TR, TTE 2022), PFO, hyperlipidemia, prediabetes, hypothyroidism, Lyme disease status post Rx, migraine, urolithiasis. Last confinement December 2022 for strokelike symptoms attributed to viral labyrinthitis. Patient has not been well since Jun, 2023 following tick bite. Head fullness, joint achiness with exertional SOB. Abnormal outpatient Lyme screen (positive IgM and IgG). Minimal symptom response to extended doxycycline course. Last month, patient noted headache and congestion symptoms. Outpatient COVID-19 test was positive. Patient completed Paxlovid course. Patient seen at PCP's office 3 weeks ago for evaluation given worsening symptoms. Normal D-dimer. Leukopenia of 2.67 with moderate amount of smudge cells on outpatient CBC. Outpatient Hematology consult contemplated. Patient gifted patient with a smart watch last week. Abnormal rhythm picked up by smart watch a few days later coinciding with patient's symptoms. Heart rate noted to be 40. 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 Specialist recommended event monitor. Yesterday morning, patient felt short of breath coming out of the bathroom to go back to bed. Documented first-degree heart block on event monitor according to hospital monitor who called her yesterday morning. Applications Instructor recommended a treadmill test to evaluate chronotropic incompetence. Patient had immediate second-degree AV block with symptoms while walking on the treadmill and had to stop. Specialist recommended outpatient Lyme testing to check for active Lyme disease possibly causing conduction issues. Patient brought to ER by today due to worsening exertional SOB symptoms. No headache, no chest pain, no abdominal pain, no cough symptoms. IV ceftriaxone administered at the ER following advice of outpatient cardiology provider. 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 Allergies Allergy/AdvReac Type Severity Reaction Status Date / Time azithromycin [From Zithromax] Allergy Severe Hives Verified 07/30/23 08:10 dihydroergotamine Allergy Severe "THROAT Verified 07/30/23 08:10 SHUTS DOWN" ketorolac Allergy Intermediate HIVES Verified 07/30/23 08:10 Penicillins Allergy Intermediate Hives Verified 07/30/23 08:10 Home Medications Medication Instructions Recorded Confirmed Type ascorbic acid (vitamin C) 500 mg 500 mg PO QAM 11/11/17 10/15/23 History tablet (Vitamin C) conjugated estrogens 0.625 mg/gram 1 applic vaginal 2XWK 11/11/17 10/15/23 History vaginal cream (Premarin) fluticasone propionate 50 1 spray intranasal DAILY PRN 11/11/17 10/15/23 History mcg/actuation nasal Allergy Symptoms spray,suspension (Flonase Allergy Relief) folic acid 400 mcg tablet 400 mcg PO QAM 11/11/17 10/15/23 History lysine 500 mg tablet (L-Lysine) 500 mg PO DAILY PRN Cold Sore(s) 11/11/17 10/15/23 History selenium 200 mcg tablet (SelenoMax) 200 mcg PO QAM PRN illness 11/11/17 10/15/23 History sennosides 8.6 mg-docusate sodium 1 tab PO BID PRN Constipation 11/11/17 10/15/23 History 50 mg tablet (Senna-S) sumatriptan succinate 100 mg 100 mg PO UD PRN Migraine Headache 11/11/17 10/15/23 History tablet (Imitrex) cholecalciferol (vitamin D3) 125 5,000 units PO UD 07/03/18 10/15/23 History mcg (5,000 unit) tablet (Vitamin D3) meperidine (PF) 100 mg/mL 1 ml IM DIRECTED PRN Migraine 07/03/18 10/15/23 History injection solution Headache multivitamin (Multiple Vitamins 1 tab PO QAM 07/03/18 10/15/23 History tablet) ondansetron 4 mg disintegrating 4 mg PO Q6H PRN nausea and 09/07/20 10/15/23 Rx tablet vomiting #20 tabs ibuprofen 800 mg tablet 800 mg PO DIRECTED PRN Pain 09/26/20 10/15/23 History galcanezumab-gnlm 120 mg/mL 120 mg subcut MONTHLY 10/25/22 10/15/23 History subcutaneous syringe (Emgality) docusate sodium 100 mg capsule 100 mg PO BID #60 caps 02/01/23 10/15/23 Rx oxybutynin chloride 5 mg tablet 5 mg PO Q8H PRN bladder spasms #90 02/01/23 10/15/23 Rx tabs pantoprazole 40 mg tablet,delayed 40 mg PO DAILY #30 tabs 02/01/23 10/15/23 Rx release Fish Oil 1 cap PO PM 10/15/23 10/15/23 History albuterol sulfate 90 mcg/actuation 1 puff inhalation DIRECTED PRN 10/15/23 10/15/23 History aerosol inhaler Other alendronate 70 mg tablet 70 mg PO WK 10/15/23 10/15/23 History aspirin 81 mg tablet,delayed 81 mg PO UD 10/15/23 10/15/23 History release (Adult Aspirin Regimen) levothyroxine 25 mcg tablet 25 mcg PO UD 10/15/23 10/15/23 History lorazepam 1 mg tablet 1 mg PO DIRECTED PRN travel 10/15/23 10/15/23 History phenazopyridine 200 mg tablet 200 mg PO Q8H PRN Other 10/15/23 10/15/23 History (Pyridium) tamsulosin 0.4 mg capsule 0.4 mg PO DAILY PRN Other 10/15/23 10/15/23 History valacyclovir 1 gram tablet 1 mg PO DIRECTED PRN Cold Sores 10/15/23 10/15/23 History Past Med/Surg History Problem List (Updated 10/15/23 @ 21:32 by Vlad Cabrera MD) Exertional dyspnea (Acute) Imbalance Left ureteral calculus Hydronephrosis, left Chest pain (Acute) Sinusitis (Acute) Ataxia (Acute) Acute viral labyrinthitis Stroke-like symptoms possibly a symptom of lymes disease Vertigo (Acute) Hypothyroidism recent dx; no meds at this time Osteoporosis (Chronic) History of kidney stones Patent foramen ovale (Chronic 07/27/12) Medical History Cardiac 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 a "small" aneurysm, recent incidental finding, to follow w/ CHANTE Rousseau GERD (gastroesophageal reflux disease) Hx of transesophageal echocardiography (JON) for monitoring Calculus of distal right ureter 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 treated w/ Meghnay Surgical History Hx of colonoscopy History of dilatation and curettage Hx of laparoscopy Hx of cystoscopy w/ stent Hx of lithotripsy Hx of tonsillectomy H/O bilateral oophorectomy History of hysterectomy Family History Mother Cervical cancer Social History Smoking Status: Never smoker Second Hand Exposure: No; Do You Dip or Chew Tobacco: No; Tobacco Cessation Education Requested by Patient: No Hx Alcohol Use: No Hx Substance Use: No Preferred Language: Thai Communication Ability: Effective Fisher Hand Line Required: No Beliefs That Will Affect Care: None Current Living Situation: Spouse Other Information That Helps Us Care for You: No Feels Safe at Home: Yes Safety Concerns: Feels Safe At This Time Assistive Devices: None Review of Systems Review of Systems: As per HPI, all other systems reviewed and negative Physical Exam Physical Exam: GENERAL: Comfortable, pleasant, slightly anxious, no respiratory distress SKIN: Normal color, warm HEENT: [place] palpebral conjunctivae, no ptosis, moist buccal mucosa NECK : Supple, no tenderness CHEST : CTA, no tenderness HEART : RRR, no obvious murmurs ABDOMEN: no distention, nontender EXTREMITIES : No LE swelling/tenderness, no other conspicuous deformities noted NEUROLOGIC : Coherent, no facial asymmetry, no other gross focality Results & Data Results & Data Vital Signs (Past 12 Hours) Vital Signs Temp Pulse Pulse Resp BP BP Pulse Ox 10/15/23 17:40 82 16 96 10/15/23 17:40 96 10/15/23 17:40 82 16 121/82 96 10/15/23 17:32 87 10/15/23 16:54 36.6 C 75 18 137/92 96 O2 Del Method 10/15/23 17:40 Room Air 10/15/23 17:40 Room Air 10/15/23 17:40 Room Air 10/15/23 17:32 10/15/23 16:54 Laboratory Results Laboratory Results WBC 3.05 K/ul (4.8-10.8) L 10/15/23 Unknown RBC 4.65 M/uL (4.20-5.40) 10/15/23 Unknown Hgb 13.7 g/dl (12.0-16.0) 10/15/23 Unknown Hct 40.0 % (37.0-47.0) 10/15/23 Unknown MCV 86.0 fL (80.0-100.0) 10/15/23 Unknown MCH 29.5 pg (25.0-34.0) 10/15/23 Unknown MCHC 34.3 g/dL (32.0-36.0) 10/15/23 Unknown RDW Std Deviation 41.7 fL (36.4-46.3) 10/15/23 Unknown RDW Coeff of Uma 13.3 % (11.5-14.5) 10/15/23 Unknown Plt Count 161 K/uL (130-400) 10/15/23 Unknown MPV 10.4 fL (9.4-12.4) 10/15/23 Unknown Immature Gran % (Auto) 0.3 % 10/15/23 Unknown Neut % (Auto) 52.1 % 10/15/23 Unknown Lymph % (Auto) 32.8 % 10/15/23 Unknown [place] % (Auto) 11.5 % 10/15/23 Unknown Eos % (Auto) 2.3 % 10/15/23 Unknown Baso % (Auto) 1.0 % 10/15/23 Unknown Neut # (Auto) 1.59 K/uL (1.40-6.50) 10/15/23 Unknown Lymph # (Auto) 1.00 K/uL (1.20-3.40) L 10/15/23 Unknown [place] # (Auto) 0.35 K/uL (0.11-0.59) 10/15/23 Unknown Eos # (Auto) 0.07 K/uL (0.00-0.50) 10/15/23 Unknown Baso # (Auto) 0.03 K/uL (0.00-0.20) 10/15/23 Unknown Immature Gran # (Auto) 0.01 K/uL (0.01-0.20) 10/15/23 Unknown PT 11.4 Seconds (9.0-12.0) 10/15/23 Unknown INR 1.1 (0.9-1.1) 10/15/23 Unknown APTT 27 Seconds (21-31) 10/15/23 Unknown PTT Ratio 1.0 10/15/23 Unknown Sodium 141 mmol/L (136-145) 10/15/23 Unknown Potassium 4.2 mmol/L (3.5-5.1) 10/15/23 Unknown Chloride 107 mmol/L (98-107) 10/15/23 Unknown Carbon Dioxide 28 mmol/L (21-32) 10/15/23 Unknown Anion Gap 6 (3-11) 10/15/23 Unknown BUN 16 mg/dl (6-23) 10/15/23 Unknown Creatinine 0.99 mg/dl (0.6-1.2) 10/15/23 Unknown Est Cr Clr Drug Dosing 53.5 ml/min 10/15/23 Unknown Est GFR ( Amer) 72.8 ml/min 10/15/23 Unknown Est GFR (Non-Af Amer) 62.8 ml/min 10/15/23 Unknown BUN/Creatinine Ratio 16.2 (10-20) 10/15/23 Unknown Glucose 91 mg/dl (70-99(Fasting)) 10/15/23 Unknown Calcium 10.3 mg/dl (8.6-10.3) 10/15/23 Unknown Magnesium 2.1 mg/dl (1.7-2.4) 10/15/23 Unknown Total Bilirubin 0.3 mg/dl (0.2-1.0) 10/15/23 Unknown AST 19 U/L (13-39) 10/15/23 Unknown ALT 14 U/L (7-52) 10/15/23 Unknown Alkaline Phosphatase 75 U/L (34-104) 10/15/23 Unknown Troponin I High Sens < 2.3 pg/ml (0-14) 10/15/23 Unknown Total Protein 6.9 gm/dl (6.0-8.3) 10/15/23 Unknown Albumin 4.7 gm/dl (3.4-5.0) 10/15/23 Unknown Globulin 2.2 gm/dl (2.5-4.0) L 10/15/23 Unknown Albumin/Globulin Ratio 2.1 (0.9-2) H 10/15/23 Unknown Anaplasma Smear See Comment 10/15/23 Unknown Babesia Smear See Comment 10/15/23 Unknown Lyme Disease Screen Positive (Negative) H 10/15/23 Unknown Impressions Chest X-Ray 10/15/23 17:12 XR chest 1V not portable CLINICAL HISTORY: Chest pain, nonspecific COMPARISON STUDY: Chest radiograph July 03, 2018. Chest CT January 28, 2023. FINDINGS: Lung volumes are normal. Lungs are clear. There is no pneumothorax or pleural effusion. Cardiac size is normal. Mediastinal contours are normal. There is no evidence for pulmonary edema. Findings consistent with bronchial ectasia within the lingula and left lower lobe are better depicted on prior chest CT. IMPRESSION: No acute cardiopulmonary findings. No change in appearance of the chest. ACT 112: Negative or not required by law. Electronically signed by: Hoang Betancourt M.D. 10/15/2023 6:03 PM Diagnostic Findings EKG as per my interpretation : Rate 70, NSR, LAD, LSB, incomplete RBBB, T wave inversion anteroseptal leads
[2023-10-15 20:12] LABS: Thyroid Stimulating Hormone 4.588 uIu/ml (0.300-4.500)
[2023-10-15 20:16] LABS: Lyme Ab IgG 2nd Tier Confirm Positive (Negative); Lyme Ab IgM 2nd Tier Confirm Negative (Negative)
[2023-10-15 20:47] LABS: T4 Free Thyroxine 1.01 ng/dl (0.61-1.60)
--- NOTE | 2023-10-15 21:32 | Emergency Department Note ---
History of Present Illness General Chief complaint: Cardiac Assessment Stated complaint: CARDIAC ASSESSMENT Time Seen by Provider: 10/15/23 17:17 History of Present Illness Provider complaint: Abnormal stress test 49-year-old female presents emergency department for abnormal stress test. Reportedly the patient was having exertional dyspnea. There is also some reported exertional chest pain. 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 Patient also reports she was recently being treated for Lyme disease and the cardiology team is concerned about her having a heart block secondary to Lyme carditis. No current chest pain or difficulty breathing. Home Medications Medication Instructions Recorded Confirmed Type ascorbic acid (vitamin C) 500 mg 500 mg PO QAM 11/11/17 10/15/23 History tablet (Vitamin C) conjugated estrogens 0.625 mg/gram 1 applic vaginal 2XWK 11/11/17 10/15/23 History vaginal cream (Premarin) fluticasone propionate 50 1 spray intranasal DAILY PRN 11/11/17 10/15/23 History mcg/actuation nasal Allergy Symptoms spray,suspension (Flonase Allergy Relief) folic acid 400 mcg tablet 400 mcg PO QAM 11/11/17 10/15/23 History lysine 500 mg tablet (L-Lysine) 500 mg PO DAILY PRN Cold Sore(s) 11/11/17 10/15/23 History selenium 200 mcg tablet (SelenoMax) 200 mcg PO QAM PRN illness 11/11/17 10/15/23 History sennosides 8.6 mg-docusate sodium 1 tab PO BID PRN Constipation 11/11/17 10/15/23 History 50 mg tablet (Senna-S) sumatriptan succinate 100 mg 100 mg PO UD PRN Migraine Headache 11/11/17 10/15/23 History tablet (Imitrex) cholecalciferol (vitamin D3) 125 5,000 units PO UD 07/03/18 10/15/23 History mcg (5,000 unit) tablet (Vitamin D3) meperidine (PF) 100 mg/mL 1 ml IM DIRECTED PRN Migraine 07/03/18 10/15/23 History injection solution Headache multivitamin (Multiple Vitamins 1 tab PO QAM 07/03/18 10/15/23 History tablet) ondansetron 4 mg disintegrating 4 mg PO Q6H PRN nausea and 09/07/20 10/15/23 Rx tablet vomiting #20 tabs ibuprofen 800 mg tablet 800 mg PO DIRECTED PRN Pain 09/26/20 10/15/23 History galcanezumab-gnlm 120 mg/mL 120 mg subcut MONTHLY 10/25/22 10/15/23 History subcutaneous syringe (Emgality) docusate sodium 100 mg capsule 100 mg PO BID #60 caps 02/01/23 10/15/23 Rx oxybutynin chloride 5 mg tablet 5 mg PO Q8H PRN bladder spasms #90 02/01/23 10/15/23 Rx tabs pantoprazole 40 mg tablet,delayed 40 mg PO DAILY #30 tabs 02/01/23 10/15/23 Rx release Fish Oil 1 cap PO PM 10/15/23 10/15/23 History albuterol sulfate 90 mcg/actuation 1 puff inhalation DIRECTED PRN 10/15/23 10/15/23 History aerosol inhaler Other alendronate 70 mg tablet 70 mg PO WK 10/15/23 10/15/23 History aspirin 81 mg tablet,delayed 81 mg PO UD 10/15/23 10/15/23 History release (Adult Aspirin Regimen) levothyroxine 25 mcg tablet 25 mcg PO UD 10/15/23 10/15/23 History lorazepam 1 mg tablet 1 mg PO DIRECTED PRN travel 10/15/23 10/15/23 History phenazopyridine 200 mg tablet 200 mg PO Q8H PRN Other 10/15/23 10/15/23 History (Pyridium) tamsulosin 0.4 mg capsule 0.4 mg PO DAILY PRN Other 10/15/23 10/15/23 History valacyclovir 1 gram tablet 1 mg PO DIRECTED PRN Cold Sores 10/15/23 10/15/23 History Allergies Allergy/AdvReac Type Severity Reaction Status Date / Time azithromycin [From Zithromax] Allergy Severe Hives Verified 07/30/23 08:10 dihydroergotamine Allergy Severe "THROAT Verified 07/30/23 08:10 SHUTS DOWN" ketorolac Allergy Intermediate HIVES Verified 07/30/23 08:10 Penicillins Allergy Intermediate Hives Verified 07/30/23 08:10 Past Med/Surg History Problem List (Updated 10/15/23 @ 21:32 by Vlad Cabrera MD) Exertional dyspnea (Acute) Imbalance Left ureteral calculus Hydronephrosis, left Chest pain (Acute) Sinusitis (Acute) Ataxia (Acute) Acute viral labyrinthitis Stroke-like symptoms possibly a symptom of lymes disease Vertigo (Acute) Hypothyroidism recent dx; no meds at this time Osteoporosis (Chronic) History of kidney stones Patent foramen ovale (Chronic 07/27/12) Medical History Cardiac 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 a "small" aneurysm, recent incidental finding, to follow w/ [facility] GERD (gastroesophageal reflux disease) Hx of transesophageal echocardiography (JON) for monitoring Calculus of distal right ureter 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 treated w/ [facility] Surgical History Hx of colonoscopy History of dilatation and curettage Hx of laparoscopy Hx of cystoscopy w/ stent Hx of lithotripsy Hx of tonsillectomy H/O bilateral oophorectomy History of hysterectomy Family History Mother Cervical cancer Social History Smoking Status: Never smoker Second Hand Exposure: No; Do You Dip or Chew Tobacco: No; Hx Alcohol Use: Yes Alcohol type: wine Alcohol Intake Frequency: 2-4 x/Month Hx Substance Use: No Preferred Language: [place] Island[place] Communication Ability: Effective Freedom Of Information Officer Required: No Beliefs That Will Affect Care: None Current Living Situation: Spouse Feels Safe at Home: Yes Assistive Devices: Glasses Physical Exam Vital Signs Vital Signs - 24 hr 10/15/23 16:54 10/15/23 17:32 10/15/23 17:40 Temperature 36.6 C Temperature Source Temporal Artery Scan Pulse Rate 75 87 Pulse Rate [Apical] 82 Respiratory Rate 18 16 Blood Pressure 137/92 Blood Pressure [Right Arm] 121/82 Blood Pressure Mean 107 Blood Pressure Mean [Right Arm] 95 Pulse Oximetry 96 96 Oxygen Delivery Method Room Air Sepsis Recent Fever Within 48 Hours No Sepsis New/Unexplained Change in Mental Status N/A Sepsis Action Taken by Nursing No Action Required 10/15/23 17:40 10/15/23 17:40 Temperature Temperature Source Pulse Rate 82 Pulse Rate [Apical] Respiratory Rate 16 Blood Pressure Blood Pressure [Right Arm] Blood Pressure Mean Blood Pressure Mean [Right Arm] Pulse Oximetry 96 96 Oxygen Delivery Method Room Air Room Air Sepsis Recent Fever Within 48 Hours Sepsis New/Unexplained Change in Mental Status Sepsis Action Taken by Nursing Physical Exam GENERAL: oriented to person, place, and time. appears well-developed and well- nourished. HENT: Exam performed. - Head: Normocephalic and atraumatic. EYES: Conjunctivae and EOM are normal. Right eye exhibits no discharge. Left eye exhibits no discharge. No scleral icterus. NECK: Normal range of motion. Neck supple. No JVD present. CV: Normal rate, regular rhythm, normal heart sounds and intact distal pulses. There is no peripheral edema. Palpable radial pulses bue. PULM/CHEST: Effort normal and breath sounds normal. No respiratory distress. No stridor. no wheezes. no rales. ABD: The abdomen is soft. There is no tenderness. NEURO: Motor and sensation grossly intact. SKIN: Skin is warm and dry. He is not diaphoretic. PSYCH: normal mood and affect. Behavior is normal. Judgment and thought content normal. Course Course 171: The patient was evaluated in room A4. A complete history and physical exam was performed Cardiac monitoring: An order was placed for continuous cardiac monitoring. The monitor shows a rate of 70 with sinus rhythm interpreted by me 1900: Vital signs stable. Labs and imaging within normal limits with the exception of leukopenia of 3.05. Tickborne illness panel is still pending. Discussed case with referring GUEST SERVICE SUPERVISOR Hyun Mcdermott. Patient will be admitted for cardiac evaluation and Rocephin 2 g IV will be administered for possible Lyme carditis. Administered Medications Sodium Chloride (Nss) 1,000 mls @ 75 mls/hr IV .[id number] ONE Stop: 10/16/23 09:19 Last Admin: 10/15/23 19:54 Dose: 75 mls/hr Documented By: NIKO Discontinued Medications Ceftriaxone Sodium (Rocephin) 2,000 mg in 50 mls @ 100 mls/hr IV NOW STA Stop: 10/15/23 19:33 Last Infusion: 10/15/23 19:53 Dose: Infused Documented By: Admin: 10/15/23 19:18 Dose: 100 mls/hr Documented By: NIKO Medical Decision Making Laboratory Data Attestation: I reviewed the patient's lab results. 10/15/23 Unknown 10/15/23 Unknown Imaging Data Radiologist's Impression: Chest X-Ray 10/15/23 17:12 XR chest 1V not portable CLINICAL HISTORY: Chest pain, nonspecific COMPARISON STUDY: Chest radiograph July 03, 2018. Chest CT January 28, 2023. FINDINGS: Lung volumes are normal. Lungs are clear. There is no pneumothorax or pleural effusion. Cardiac size is normal. Mediastinal contours are normal. There is no evidence for pulmonary edema. Findings consistent with bronchial ectasia within the lingula and left lower lobe are better depicted on prior chest CT. IMPRESSION: No acute cardiopulmonary findings. No change in appearance of the chest. ACT 112: Negative or not required by law. Electronically signed by: Hoang Betancourt M.D. 10/15/2023 6:03 PM ECG Data Attestation: I personally reviewed and interpreted this ECG as follows: Rate (beats per minute): 70 Rhythm: + normal sinus ECG Intervals/blocks: + Right Bundle branch block, + Normal QRS, + Normal CT and + Normal QT-c ECG ST segments: + Normal ST segments MDM Narrative 1717: The patient was evaluated in room A4. A complete history and physical exam was performed Cardiac monitoring: An order was placed for continuous cardiac monitoring. The monitor shows a rate of 70 with sinus rhythm interpreted by me 1900: Vital signs stable. Labs and imaging within normal limits with the exception of leukopenia of 3.05. Tickborne illness panel is still pending. Discussed case with referring GUEST SERVICE SUPERVISOR Hyun Mcdermott. Patient will be admitted for cardiac evaluation and Rocephin 2 g IV will be administered for possible Lyme carditis. Impression & Plan Exertional dyspnea Discharge Plan Visit Data Chief Complaint: Cardiac Assessment Stated Complaint: CARDIAC ASSESSMENT ED Provider: Vlad Cabrera Discharge Problem: Exertional dyspnea Patient Disposition: Admitted As Inpatient Discharge Instructions Interventions: ED Discharge Assessment Last Done: 10/15/23 21:10
[2023-10-15] MEDS ORDERED: ATROPINE SULFATE 0.1 MG/ML 10ML SYR IV PRN (21:48)
[2023-10-15] MEDS ORDERED: FLUTICASONE PROPIONATE NA SPR 16 GM BTL NAE PRN (22:08)
[2023-10-15] MEDS ORDERED: DOCUSATE SODIUM/SENNA 50/8.6MG TAB PO PRN (22:08)
--- OUTSIDE RECORDS SUMMARY | 2023-10-16 00:32 | External Medical Summary | Summary of Care ---
Author Name Unknown Organization [facility] Address [address] [place] [address] Phone [phone] Care Team Providers Care Chart Reader Name Role Phone Glendy RABAGO MD, Denzel Cuadra Primary Care Provider [phone] Reason for Visit * Reason Onset Date Comments Medication Refill 08/22/2023 Encounter Details Date Type Department Care Team (Late st Contact Info) Description 08/22/2023 Refill Family Practice [facility] [address] [place] [address] Denzel Mcnair III, MD [address] [place] [address] Other osteoporosis without current pathological fracture Allergies Active Allergy Reactions Criticality Noted Date Comments Azithromycin Hives High 07/03/2018 Dihydroergotamine High 07/03/2018 Other reaction(s): "THROAT SHUTS DOWN" Ergotamine 06/10/2001 DHE Ketorolac Tromethamine 01/08/2002 hives Penicillins 02/08/2009 rash Poison [place] Extract Rash 06/12/2015 Azithromycin Hives 12/20/2008 documented as of this encounter (statuses as of 08/23/2023) Medications Medication Sig Dispensed Refills Start Date End Date Status LYSINE HCL 500 MG PO TABS Take by mouth. 02/01/2013 Active SENNA S 8.6-50 MG PO TABS one tablet twice daily 02/01/2013 Active Multiple Vitamins-Minerals (MULTIVITAMIN GUMMIES ADULTS) CHEW Take by mouth. Active fluticasone (FLONASE) 50 MCG/ACT nasal sprayIndications:A llergic rhinitis Administer 1 [place] into nostril daily. 16 g 5 06/12/2015 Active vitamin c (ASCORBIC ACID) 500 MG Tablet Take 1 Tablet by mouth in the morning and 1 Tablet before bedtime. 01/18/2017 Active zinc gluconate 50 MG Tablet Take 1 Tablet by mouth in the morning. 01/19/2017 Active Folic Acid 400 MCG Tablet Take 1 Tablet by mouth in the morning. 01/19/2017 Active Selenium 200 MCG CAPS Take by mouth. 01/19/2017 Active Cholecalciferol 5000 units Capsule Take 1 Capsule by mouth in the morning. 02/13/2018 Active Ibuprofen-Famotidi ne 800-26.6 MG Oral Tablet Take 1 Tab by mouth as needed. Active Ondansetron HCl 4 MG Oral TabletIndications: Common migraine with intractable migraine Take 1 Tablet (4 mg) by mouth every 6 hours as needed for Nausea. 30 Tablet 02/11/2022 Active Meclizine HCl 25 MG Oral Tablet (Antivert) Take 1 Tablet by mouth 3 times a day as needed for Dizziness. 30 Tablet 1 02/09/2023 Active SUMAtriptan Succinate 100 MG Oral TabletIndications: Migraine without aura and without status migrainosus, not intractable,Migrai ne with aura and without status migrainosus, not intractable TAKE 1 TABLET AT ONSET OF MIGRAINE. MAY REPEAT IN 2 HOUR BUT NO MORE THAN 2 TABLETS IN 24 HOURS. 9 Tablet 5 02/10/2023 Active Premarin 0.625 MG/GM Vaginal Cream (Estrogens Conjugated) Insert vaginally as directed twice weekly at bedtime(mon and ) 90 g 3 02/25/2023 Active Emgality 120 MG/ML Subcutaneous Solution Prefilled Syringe (Galcanezumab-[facility] ) INJECT 1 ML UNDER THE SKIN ONCE MONTHLY 1 mL 9 03/18/2023 Active Pantoprazole Sodium 40 MG Oral Tablet Delayed Release (Protonix) 02/01/2023 Active Tamsulosin HCl 0.4 MG Oral Capsule (Flomax)Indication s:Calcium oxalate renal calculi,Hydronephr osis, left 02/01/2023 Active valACYclovir HCl 1 GM Oral Tablet (Valtrex)Indicatio ns:H/O cold sores Take 2 Tablets by mouth in the morning and 2 Tablets before bedtime. for cold sores. 4 Tablet 11 03/23/2023 Active Additional Information Patient not taking.Reported on 06/28/2023 Cefuroxime Axetil 500 MG Oral Tablet (Ceftin)Indication s:UTI symptoms,Bronchiti s, complicated,Persis tent cough for 3 weeks or longer Take 1 Tablet by mouth in the morning and 1 Tablet before bedtime. -took in past. 20 Tablet 05/29/2023 Active predniSONE 10 MG Oral Tablet (Deltasone)Indicat ions:Bronchitis, complicated,Persis tent cough for 3 weeks or longer Take 5 tabs for 2 days, 4 tabs for 2 days, 3 tabs for 2 days, 2 tabs for 2 days 1 tab for 2 days 30 Tablet 05/29/2023 Active Ventolin HFA 108 (90 Base) MCG/ACT Inhalation Aerosol SolutionIndication s:Bronchitis, complicated,Persis tent cough for 3 weeks or longer Inhale 2 Puffs by mouth every 4 hours as needed for Wheezing or Cough. 18 g 05/29/2023 Active Promethazine-DM 6.25-15 MG/5ML Oral SyrupIndications:B ronchitis, complicated,Persis tent cough for 3 weeks or longer Take 5 mL by mouth 4 times a day as needed for Cough. 120 mL 05/29/2023 Active Additional Information Patient not taking.Reported on 06/28/2023 Promethazine-Codei ne 6.25-10 MG/5ML Oral Syrup (Phenergan and Codeine)Indication s:Bronchitis, complicated,Persis tent cough for 3 weeks or longer Take 5 mL by mouth 4 times a day as needed for Cough. 120 mL 05/31/2023 Active Additional Information Patient not taking.Reported on 06/28/2023 LORazepam 1 MG Oral Tablet (Ativan) Take 1 Tablet by mouth 3 times a day as needed for Anxiety. 5 Tablet 06/02/2023 Active Levothyroxine Sodium 25 MCG Oral Tablet (Levoxyl) Take 1 Tablet by mouth in the morning. Mon-sat 2 tabs wednesday(at least 30 min prior to breakfast or other meds). 105 Tablet 2 06/03/2023 Active Ibuprofen 200 MG Oral Tablet (Motrin) Take 2 Tablets by mouth every 6 hours as needed. Active Meperidine HCl 100 MG/ML Injection Solution (Demerol)Indicatio ns:Common migraine with intractable migraine Inject 100 mg into a large muscle every 4 hours as needed for Headache. 1 mL 07/29/2023 Active Alendronate Sodium 70 MG Oral Tablet (Fosamax)Indicatio ns:Other osteoporosis without current pathological fracture Take 1 tablet by mouth weekly with 8 oz of water 30 min before the first meal of the day, remain upright for 30 min after taking tablet 12 Tablet 1 08/23/2023 Active Alendronate Sodium 70 MG Oral Tablet (Fosamax)Indicatio ns:Other osteoporosis without current pathological fracture Take 1 tablet by mouth weekly with 8 oz of water 30 min before the first meal of the day, remain upright for 30 min after taking tablet 12 Tablet 2 02/25/2023 Discontinue d(Refill) documented as of this encounter (statuses as of 08/23/2023) Active Problems Problem Noted Date Diagnosed Date 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 Atrial septal aneurysm 02/11/2023 Pre-diabetes 01/12/2022 Overview: Per Prediabetes protocol Other [...] as of this encounter (statuses as of 08/23/2023) Resolved Problems Problem Noted Date Diagnosed Date [...] as of this encounter (statuses as of 08/23/2023) Immunizations Name Administration Dates Next Due COVID-19 mRNA, LNP-s, No Pre serve, 2-Dose Series (Moderna) 03/27/2020,02/28/2020 COVID-19, mRNA, LNP-s, PF, B ooster, 100mcg/0.5mg (Moderna) 01/10/2021 DTWP - Dipth/Tet/Whole Cell Pertussis 04/01/2000 PPD 11/28/2009 Seasonal Influenza, Quadrivalent, No Preserve, I M 11/29/2022,12/18/2020 Seasonal Influenza, Split, IIV3, With Preserve, Inj 01/04/2013,11/28/2009 TD, Preservative Free 09/13/2019 TDAP, Age 7 and older, IM (Adacel) 07/18/2009 documented as of this encounter Social History Tobacco Use Types Packs/Day Years Used Date Smoking Tobacco: Never Smokeless Tobacco: Never Alcohol Use Standard Drinks/Week Comments Yes 0 (1 standard drink = 0.6 oz pur e alcohol) occ PHQ-2 Answer Date Recorded PHQ Adult Total Score 0 03/23/2023 Hunger Vital Sign Answer Date Recorded Within the past 12 months, y ou worried that your food would run out before you got the money to buy more. Never true 05/19/19 24 Within the past 12 months, t he food you bought just didn't last and you didn't have money to get more. Never true 05/19/2023 Sex and Gender Information Value Date Recorded Sex Assigned at Female 07/01/2018 11:19 AM EDT Gender Identity Female 07/01/2018 11:19 AM EDT Sexual Orientation Straight 07/01/2018 11 :19 AM EDT Job Start Date Occupation Industry Not on file Not on file Not on file documented as of this encounter Miscellaneous Notes * Telephone Encounter - Bobby Foley [facility] - 08/23/2023 2:39 PM EDTSigned Prescriptions: Disp Refills Alendronate Sodium 70 MG Oral Tablet (Fosa*12 Tab*1 Sig: Take 1 tablet by mouth weekly with 8 oz of water 30 min before the first meal of the day, remain upright for 30 min after taking tabletAuthorizing Provider: DENZEL MCNAIR III User: BOBBY FOLEY documented in this encounter Plan of Treatment Scheduled Procedures Name Priority Associated Diagnoses Date/Ti me COLONOSCOPY FLEXIBLE PROXIMA L DIAGNOSTIC Recall Special screening for malignant neoplasms, colon Health Maintenance Due Date Last Done Comments HIV Screening 10/16/1979 Hepatitis B (1 of 3 - 19+ 3-dose series) 10/16/1983 Cologuard 2009 Fecal Occult Blood Test 2009 02/08/1997 Sigmoidoscopy 2009 Zoster Vaccines (1 of 2) 2014 Mammogram 12/24/2019 12/23/2018, 10/2017, 07/01/2016, Additional history exists DXA Scan 12/23/2020 12/23/2018 COVID-19 Vaccine ( - 2022- season) 2022 01/10/2021, 03/27/2020, 02/28/2020 HbA1c 01/13/2024 01/12/2023, 04/2021, 08/02/2009, Additional history exists Depression Screening 03/23/2024 03/23/2023 TSH 06/01/2024 06/02/2023, 03/02, 01/12/2023, Additional history exists Colonoscopy 12/21/2024 12/21/2014, 12/21/2014 Colorectal Cancer Screening 12/21/2024 Lipid Panel 01/13/2028 01/12/2023, 0 04/2021, 07/12/2020, Additional history exists DTaP,Tdap,and Td Vaccines (4 - Td or Tdap) 09/12/2029 09/13/2019, 07/18/2009, 04/01/2000 Influenza Vaccine (FLU shot) Completed 03/2022, 12/18/2020, 01/04/2013, Additional history exists VITAMIN D LEVEL ONCE IN A LIFETIME-USE SMARTSET# [id number] Completed 01/12/2023, 07/12/2020, 09/05/2018, Additional history exists [...] fracture documented in this encounter Advance Directives * Full Code (Latest Code Status on File) Date Activated Date Inactivated Comments 06/07/2011 11:19 PM 06/10/2011 3:09 PM This order r eflects the patients wishes and were consensually agreed upon. Care Teams Chart Reader Relationship Specialty Start Date End Date Denzel Mcnair III, MD [address] [place] [address] PCP - General Family Medicine 12/25/20 documented as of this encounter
--- OUTSIDE RECORDS SUMMARY | 2023-10-16 00:32 | External Medical Summary | Summary of Care ---
Author Name Unknown Organization [facility] Address [address] [place] [address] Phone [phone] Care Team Providers Care Women'S Apparel Salesperson Name Role Phone Glendy RABAGO MD, Salvador Cuadra Primary Care Provider [phone] Reason for Referral * Medication Prior Authorization - Pending Review Specialty Diagnoses / Procedures Referred By Amador hamilton Referred To Contact Diagnoses Common migraine with intractable migraine Wes Morris DO [address] [place] [address] Referral ID Status Reason Start Date Expiration Date V isits Requested Visits Authorized [id number] Pending Review [phone] Reason for Visit * Reason Onset Date Comments Medication Refill 09/08/2023 Encounter Details Date Type Department Care Team (Late st Contact Info) Description 09/08/2023 Refill Family Practice [facility] [address] [place] [address] Monserrat Cabrera DO [address] [place] [address] Common migraine with intractable migraine Allergies Active Allergy Reactions Criticality Noted Date Comments Azithromycin Hives High 07/03/2018 Dihydroergotamine High 07/03/2018 Other reaction(s): "THROAT SHUTS DOWN" Ergotamine 06/10/2001 DHE Ketorolac Tromethamine 01/08/2002 hives Penicillins 02/08/2009 rash Poison Floresita Extract Rash 06/12/2015 Azithromycin Hives 12/20/2008 documented as of this encounter (statuses as of 09/10/2023) Medications Medication Sig Dispensed Refills Start Date End Date Status LYSINE HCL 500 MG PO TABS Take by mouth. 02/01/2013 Active SENNA S 8.6-50 MG PO TABS one tablet twice daily 02/01/2013 Active Multiple Vitamins-Minerals (MULTIVITAMIN GUMMIES ADULTS) CHEW Take by mouth. Active fluticasone (FLONASE) 50 MCG/ACT nasal sprayIndications:A llergic rhinitis Administer 1 [place] into nostril daily. 16 g 5 06/12/2015 [...] at bedtime(mon and th) 90 g 3 02/25/2023 Active Emgality 120 [...] mouth every 6 hours as needed. Active Alendronate Sodium 70 MG Oral Tablet (Fosamax)Indicatio ns:Other osteoporosis without current pathological fracture Take 1 tablet by mouth weekly with 8 oz of water 30 min before the first meal of the day, remain upright for 30 min after taking tablet 12 Tablet 1 08/23/2023 Active Doxycycline Hyclate 100 MG Oral Capsule Take 1 Capsule by mouth in the morning and 1 Capsule before bedtime. 60 Capsule 08/26/2023 Active Meperidine HCl 100 MG/ML Injection Solution (Demerol)Indicatio ns:Common migraine with intractable migraine Inject 100 mg into a large muscle every 4 hours as needed for Headache. 1 mL 09/10/2023 Active Meperidine HCl 100 MG/ML Injection Solution (Demerol)Indicatio ns:Common migraine with intractable migraine Inject 100 mg into a large muscle every 4 hours as needed for Headache. 1 mL 07/29/2023 4 Discontinue d(Refill) documented as of this encounter (statuses as of 09/10/2023) Active Problems Problem Noted Date Diagnosed Date [...] as of this encounter (statuses as of 09/10/2023) Resolved Problems Problem Noted Date Diagnosed Date [...] as of this encounter (statuses as of 09/10/2023) Immunizations Name Administration Dates Next Due COVID-19 [...] money to buy more. Never true 05/19/19 Within the past 12 months, t he food you bought just didn't last and you didn't have money to get more. Never true 05/19/2023 Childcare Answer Date Recorded Do you feel overwhelmed with taking care of a child, family member or friend? No 05/19/2023 Does your family need help f inding childcare? (Household - for ages 0-17 years) Not on file 05/19/2023 Clothing Answer Date Recorded Have you been unable to get clothing when it was really needed? No 05/19/2023 Is your family able to get c lothes or diapers when needed? (Household - for ages 0-17 years) Not on file 05/19/2023 Personal Safety Answer Date Recorded Do you feel unsafe or have concerns for your saf ety? No 05/19/2023 Do you have concerns for you r family's safety? (Household - for ages 0-17 years) Not on file 05/19/2023 Utilities Answer Date Recorded Do you have trouble paying y our heating, water, or electric bill? No 05/19/2023 Is your family able to pay t he heat, water, or electric bill? (Household - for ages 0-17 years) Not on file 05/19/2023 Does your family have access to good internet? (Household - for ages 0-17 years) Not on file 05/19/2023 Employment Status Answer Date Recorded Are you unemployed or without regular income? No 05/19/2023 Does the household have a [facility] source of income? (Household - for ages 0-17 years) Not on file 05/19/2023 Social Connections Answer Date Recorded How often do you feel lonely or isolated from th ose around you? Never 05/19/2023 Financial Resource Strain Answer Date R ecorded Do you have any trouble payi ng for your medications, or do you think you might in the future? No 05/19/2023 Does your family have troubl e paying for medicine? (Household - for ages 0-17 years) Not on file 05/19/2023 Transportation Needs Answer Date Record ed READ ONLY Do you have troubl e getting a ride to medical visits or work? Never True 05/19/2023 Does your family have a hard time getting a ride to doctors visits? (Household - for ages 0-17 years) Not on file 05/19/2023 Has lack of transportation k ept you from medical appointments, meetings, work, or from getting things needed for daily living? Check all that apply. (Adult - for ages 18 years and over) Not on file 05/19/2023 Do you (or your family) have trouble finding or paying for a ride (transportation)? (Household - for ages 0-17 years) Not on file 05/19/2023 Housing Stability Answer Date Recorded Do you currently live in a s helter or have no steady place to sleep at night? No 05/19/2023 READ ONLY Do you think you a re at risk of becoming homeless? No 05/19/2023 Does your family worry about paying for your home or becoming homeless? (Household - for ages 0-17 years) Not on file 0 05/19/2023 Are you homeless or worried that you might be in the future? (Adult - for ages 18 years and over) Not on file Are you (or your family) griselda eless or worried that you might be in the future? (Household - for ages 0-17 years) Not on file Food Insecurity Answer Date Recorded Do you need food for this week? No 05/19/2023 Are you able to get enough f ood for your family? (Household - for ages 0-17 years) Not on file 05/19/2023 Does your family need food t his week? (Household - for ages 0-17 years) Not on file 05/19/2023 Do you always have enough fo od for your family? (Household - for ages 0-17 years) Not on file 05/19/2023 Sex and Gender Information Value Date Recorded Sex Assigned at Female 07/01/2018 11:19 AM EDT Gender Identity Female 07/01/2018 11:19 AM EDT Sexual Orientation Straight 07/01/2018 11 :19 AM EDT Job Start Date Occupation Industry Not on file Not on file Not on file documented as of this encounter Miscellaneous Notes * Telephone Encounter - Wes Morris DO - 09/10/2023 4:47 PM EDTSigned Prescriptions: Disp Refills Meperidine HCl 100 MG/ML Injection Solutio*1 mL 0 Sig: Inject 100 mg into a large muscle every 4 hours as needed for Headache. Authorizing Provider: WES MORRIS * Telephone Encounter - Sole Valencia [facility] - 09/09/2023 12:33 PM EDT Pending Prescriptions: Disp Refills Meperidine HCl 100 MG/ML Injection Solutio*1 mL 0 Sig: Inject 100 mg into a large muscle every 4 hours as needed for Headache. * Telephone Encounter - Sole Valencia RP - 09/09/2023 12:32 PM EDT I have reviewed the patients controlled substance dispensing history in the Prescription Drug Monitoring Program in compliance with the [facility] regulations before prescribing a controlled substance. PDMP checked on 09/09/2023. Pending Prescriptions: Disp Refills Meperidine HCl 100 MG/ML Injection Soluti*1 mL 0 Sig: Inject 100 mg into a large muscle every 4 hours as needed for Headache. Last Visit: 06/02/2023 (in office), 02/03/2023 (telemedicine) Next Visit: Visit date not found Date medication was last filled: 07/29/23 Medication is due for refill Pharmacy: [id number] [facility] [address] Is this request for a controlled substance? Yes and Urine Drug Screen Not completed Toxicology results: No results found. However, due to the size of the patient record, not all encounters were searched.Please check Results Review for a complete set of results. Please approve if appropriate. Thank You Sole Valencia, PharmD Clinical Pharmacist [facility] ([facility]) [phone] / [phone] 09/09/2023, 12:32 PM documented in this encounter Plan of Treatment Scheduled Procedures Name Priority Associated Diagnoses Date/Ti me COLONOSCOPY FLEXIBLE PROXIMA L DIAGNOSTIC Recall Special screening for malignant neoplasms, colon Health Maintenance Due Date Last Done Comments HIV Screening 10/16/1979 Hepatitis B Vaccine (1 of 3 - 19+ 3-dose series) 10/16/1983 Cologuard 2009 Fecal Occult Blood Test 2009 02/08/1997 Sigmoidoscopy 2009 Zoster Vaccines (1 of 2) 2014 Mammogram 12/24/2019 12/23/2018, 050 10/2017, 07/01/2016, Additional history exists DXA Scan 12/23/2020 12/23/2018 COVID-19 Vaccine ( season) 2022 01/10/2021, 03/27/2020, 02/28/2020 Influenza Vaccine (FLU shot) (#1) 2023 11/29/2022, 12/18/2020, 01/04/2013, Additional history exists HbA1c 01/13/2024 01/12/2023, 11/0 04/2021, 08/02/2009, Additional history exists Depression Screening 03/23/2024 03/23/2023 TSH 06/01/2024 06/02/2023, 03/02, 01/12/2023, Additional history exists Colonoscopy 12/21/2024 12/21/2014, 12/21/2014 Colorectal Cancer Screening 12/21/2024 Lipid Panel 01/13/2028 01/12/2023, 11/0 04/2021, 07/12/2020, Additional history exists DTaP,Tdap,and Td Vaccines (4 - Td or Tdap) 09/12/2029 09/13/2019, 07/18/2009, 04/01/2000 VITAMIN D LEVEL ONCE IN A LIFETIME-USE SMARTSET# [id number] Completed 01/12/2023, 07/12/2020, 09/05/2018, Additional history exists HPV (Gardasil) Vaccine Aged Out No lo nger eligible based on patient's age to complete [...] migrainosus documented in this encounter Advance Directives * Full Code (Latest Code Status on File) Date Activated Date Inactivated Comments 06/07/2011 11:19 PM 06/10/2011 3:09 PM This order r eflects the patients wishes and were consensually agreed upon. Care Teams Women'S Apparel Salesperson Relationship Specialty Start Date End Date Salvador Pike III, MD [address] [facility] [place] [address] PCP - General Family Medicine 12/25/20 documented as of this encounter
--- OUTSIDE RECORDS SUMMARY | 2023-10-16 00:32 | External Medical Summary | Summary of Care ---
Author Name Unknown Organization [facility] Address [address] [place] [address] Phone [phone] Care Team Providers Care Rn Neonatal Name Role Phone Glendy RABAGO MD, Salvador Cuadra Primary Care Provider [phone] Reason for Referral * Medication Prior Authorization - Pending Review Specialty Diagnoses / Procedures Referred By Amador hamilton Referred To Contact Diagnoses Common migraine with intractable migraine Wes Morris DO [address] [place] [address] Referral ID Status Reason Start Date Expiration Date V isits Requested Visits Authorized [id number] Pending Review [phone] Reason for Visit * Reason Onset Date Comments Medication Refill 09/08/2023 Encounter Details Date Type Department Care Team (Late st Contact Info) Description 09/08/2023 Refill Family Practice [facility] [address] [place] [address] Monserrat Cabrera DO [address] [place] [address] Common migraine with intractable migraine Allergies Active Allergy Reactions Criticality Noted Date Comments Azithromycin Hives High 07/03/2018 Dihydroergotamine High 07/03/2018 Other reaction(s): "THROAT SHUTS DOWN" Ergotamine 06/10/2001 DHE Ketorolac Tromethamine 01/08/2002 hives Penicillins 02/08/2009 rash Poison [place] Extract Rash 06/12/2015 Azithromycin Hives 12/20/2008 documented as of this encounter (statuses as of 09/13/2023) Medications Medication Sig Dispensed Refills Start Date End Date Status LYSINE HCL 500 MG PO TABS Take by mouth. 02/01/2013 Active SENNA S 8.6-50 MG PO TABS one tablet twice daily 02/01/2013 Active Multiple Vitamins-Minerals (MULTIVITAMIN GUMMIES ADULTS) CHEW Take by mouth. Active fluticasone (FLONASE) 50 MCG/ACT nasal sprayIndications:A llergic rhinitis Administer 1 [place] into nostril daily. 16 g 5 06/12/2015 [...] as of this encounter (statuses as of 09/13/2023) Active Problems Problem Noted Date Diagnosed Date [...] as of this encounter (statuses as of 09/13/2023) Resolved Problems Problem Noted Date Diagnosed Date [...] as of this encounter (statuses as of 09/13/2023) Immunizations Name Administration Dates Next Due COVID-19 mRNA, LNP-s, No Pre serve, 2-Dose Series (Moderna) 03/27/2020,02/28/2020 COVID-19, mRNA, LNP-s, PF, B ooster, 100mcg/0.5mg (Moderna) 01/10/2021 DTWP - Dipth/Tet/Whole Cell Pertussis 04/01/2000 PPD 11/28/2009, 2,06/21/2000,1999,07/02/1998 Seasonal Influenza, Quadriva lent, No Preserve, IM 11/29/2022,12/18/2020 Seasonal Influenza, Split, I IV3, With Preserve, Inj 01/04/2013,11/28/2009 TD, Preservative Free [...] No 05/19/2023 Does the household have a [facility] source [facility] income? (Household - for ages [...] encounter Miscellaneous Notes * Telephone Encounter - Monserrat Cabrera DO - 09/13/2023 6:28 PM EDT Meperidine HCl 100 MG/ML Injection Solution (Demerol) 1 mL 0 09/10/2023 -- Sig - Route: Inject 100 mg into a large muscle every 4 hours as needed for Headache. - Intramuscular Sent to pharmacy as: Meperidine HCl 100 MG/ML Injection Solution (Demerol) Class: ePrescribing Earliest Fill Date: 09/10/2023 Order: [id number] Date/Time Signed: 09/10/2023 16:47 E-Prescribing Status: Receipt confirmed by pharmacy (09/13/2023 2:39 PM EDT) Prior authorization: Denied Associated Diagnoses Common migraine with intractable migraine [G43.019] Order Providers Prescribing Provider ([id number]) Wes Morris DO Pharmacy Denied by insurance * Telephone Encounter - Irene Ibrahim PHARM Tech - 09/13/2023 2:31 PM EDT Patient called back in today stating that the pharmacy never received the medication for MeperidineHCl 100 MG/ML Injection Solution. I do see it was not released due to payor response. Please adviseand resend if agreeable Thank you, Irene Ibrahim National Expansion Recruiter I [facility] ([facility]) 09/13/2023,2:37 PM * Telephone Encounter - Wes Morris DO - 09/10/2023 4:47 PM EDTSigned Prescriptions: Disp Refills Meperidine HCl 100 MG/ML Injection Solutio*1 mL 0 Sig: Inject 100 mg into a large muscle every 4 hours as needed for Headache. Authorizing Provider: WES MORRIS * Telephone Encounter - Sole Valencia [facility] - 09/09/2023 12:33 PM EDT Pending Prescriptions: Disp Refills Meperidine HCl 100 MG/ML Injection Solutio*1 mL 0 Sig: Inject 100 mg into a large muscle every 4 hours as needed for Headache. * Telephone Encounter - Sole Valencia RPh - 09/09/2023 12:32 PM EDT I have reviewed the patients controlled substance dispensing history in the Prescription Drug Monitoring Program in compliance with the [facility] regulations before prescribing a controlled substance. PDMP checked on 09/09/2023. Pending Prescriptions: Disp Refills Meperidine HCl 100 MG/ML Injection Soluti*1 mL 0 Sig: Inject 100 mg into a large muscle every 4 hours as needed for Headache. Last Visit: 06/02/2023 (in office), 02/03/2023 (telemedicine) Next Visit: Visit date not found Date medication was last filled: 07/29/23 Medication is due for refill [facility]acy: [id number] [facility] [address] Is this request for a controlled substance? Yes and Urine Drug Screen Not completed Toxicology results: No results found. However, due to the size of the patient record, not all encounters were searched.Please check Results Review for a complete set of results. Please approve if appropriate. Thank You Sole Valencia, PharmD Clinical Pharmacist [facility] Services ([facility]) [phone] / [phone] 09/09/2023, 12:32 PM documented in this encounter [...] Scan 12/23/2020 12/23/2018 COVID-19 Vaccine ( - season) 2022 01/10/2021, 03/27/2020, 02/28/2020 Influenza Vaccine (FLU shot) (#1) 2023 11/29/2022, 12/18/2020, 01/04/2013, Additional history exists HbA1c 01/13/2024 01/12/2023, 1104/2021, 08/02/2009, Additional history exists Depression Screening 03/23/2024 03/23/2023 TSH 06/01/2024 06/02/2023, 03/02, 01/12/2023, Additional history exists Colonoscopy 12/21/2024 12/21/2014, 12/21/2014 Colorectal Cancer Screening 12/21/2024 Lipid Panel 01/13/2028 01/12/2023, 0 04/2021, 07/12/2020, Additional history exists DTaP,Tdap,and Td Vaccines (4 - Td or Tdap) 09/12/2029 09/13/2019, 07/18/2009, 04/01/2000 VITAMIN D LEVEL ONCE IN A LIFETIME-USE SMARTSET# [id number] Completed 01/12/2023, 07/12/2020, 09/05/2018, Additional history exists [...] and were consensually agreed upon. Care Teams Rn Neonatal Relationship Specialty Start Date End Date Salvador Pike III, MD [address] [place] [address] PCP - General Family Medicine 12/25/20 documented as of this encounter
--- OUTSIDE RECORDS SUMMARY | 2023-10-16 00:32 | External Medical Summary | Continuity of Care Document ---
Author Name Unknown Organization [facility] [address] Address [address] [place], [place] [id number] Care Team Providers Care Technology Architect Name Role Phone Salvador Pike Primary Care Physician [phone] Encounter [facility] [id number] Date(s): 09/27/23 - 09/27/23 [facility] [address] [facility] [address] [facility] [address] [place], [place] [phone] Encounter Diagnosis Decreased white blood cell count, unspecified(Final) - Discharge Disposition: Home or Self Care Attending Physician: MD Miller Amy L Referring Physician: MD Miller Amy L Results Laboratory List Name Date Complete Blood Count w Differential (CBC ,DIFFH) 09/27/23 Most recent to oldest [Reference Range]: 1 Platelet Morphology NORMAL *Unknown* (09/27/23 7:44 AM) MPV [9.0-12.2 fL] 11.2 fL (09/27/23 7:44 AM) Immature Gran% 0.0 % (09/27/23 7:44 AM) Neut% 44.2 % (09/27/23 7:44 AM) Lymph% 43.4 % (09/27/23 7:44 AM) [place]% 9.7 % (09/27/23 7:44 AM) Baso% 0.0 % (09/27/23 7:44 AM) Eos% 2.7 % (09/27/23 7:44 AM) Immat Gran, Abs [0.0-0.4 K/uL] 0.00 K/uL (09/27/23 7:44 AM) Neut, Abs [2.0-7.7 K/uL] 1.09 K/uL *LOW* (09/27/23 7:44 AM) Lymph, Abs [1.0-3.4 K/uL] 1.07 K/uL (7/29/24 7:44 AM) [place], Abs [0-1.0 K/uL] 0.24 K/uL (09/27/23 7:44 AM) Baso, Abs [0-0.1 K/uL] 0.00 K/uL (09/27/23 7:44 AM) Eos, Abs [0-0.5 K/uL] 0.07 K/uL (09/27/23 7:44 AM) Type of Diff: MANUAL *Unknown* (09/27/23 7:44 AM) RBC Morphology NORMAL *Unknown* (09/27/23 7:44 AM) RDW [11.5-14.2 %] 13.2 % (09/27/23 7:44 AM) Hct [35-44 %] 41.6 % (09/27/23 7:44 AM) Hgb [11.7-15.0 g/dL] 14.0 g/dL (09/27/23 7:44 AM) MCH [28-33 pg] 29.6 pg (09/27/23 7:44 AM) MCHC [32-36 g/dL] 33.7 g/dL (09/27/23 7:44 AM) MCV [81-96 fL] 87.9 fL (09/27/23 7:44 AM) Plts [150-350 K/uL] 172 K/uL (09/27/23 7:44 AM) RBC [3.90-5.00 M/uL] 4.73 M/uL (09/27/23 7:44 AM) WBC [4.0-10.4 K/uL] 2.46 K/uL *LOW* (09/27/23 7:44 AM) Patient Care team information Care Team Personnel Name: MD Glendy, Salvador Cuadra Position: Referring DIRECT Member Role: Primary Care Provider Address: [address]
--- OUTSIDE RECORDS SUMMARY | 2023-10-16 00:32 | External Medical Summary | Summary of Care ---
Author Name Unknown Organization [facility] Address [address] [place] [address] Phone [phone] Care Team Providers Care Salesperson Sheet Music Name Role Phone Glendy RABAGO MD, Salvador Cuadra Primary Care Provider [phone] Reason for Referral * Medication Prior Authorization - Pending Review Specialty Diagnoses / Procedures Referred By Amador hamilton Referred To Contact Diagnoses Common migraine with intractable migraine Wes Morris DO [address] [place] [address] Referral ID Status Reason Start Date Expiration Date V isits Requested Visits Authorized [id number] Pending Review [phone] Reason for Visit * Reason Onset Date Comments Medication Refill 09/08/2023 Encounter Details Date Type Department Care Team (Late st Contact Info) Description 09/08/2023 Refill Family Practice [facility] [address] [place] [address] Monserrat Cabrera DO [address] [place] [address] Common migraine with intractable migraine Allergies Active [...] MCG/ACT nasal sprayIndications:A llergic rhinitis Administer 1 [place] into nostril daily. 16 g 5 06/12/2015 [...] No 05/19/2023 Does the household have a [facility] source [facility]? (Household - for ages [...] encounter Miscellaneous Notes * Telephone Encounter - Irene Ibrahim PHARM Tech - 09/13/2023 2:31 PM EDT Patient called back in today stating that the pharmacy never received the medication for MeperidineHCl 100 MG/ML Injection Solution. I do see it was not released due to payor response. Please adviseand resend if agreeable Thank you, Irene Ibrahim Canned Food Reconditioning Inspector I [facility] ([facility]) 09/13/2023,2:37 PM * Telephone Encounter - Wes Morris DO - 09/10/2023 4:47 PM EDTSigned Prescriptions: Disp Refills Meperidine HCl 100 MG/ML Injection Solutio*1 mL 0 Sig: Inject 100 mg into a large muscle every 4 hours as needed for Headache. Authorizing Provider: WES MORRIS * Telephone Encounter - Sole Valencia [facility] - 09/09/2023 12:33 PM EDT Pending Prescriptions: Disp Refills Meperidine HCl 100 MG/ML Injection Solutio*1 mL 0 Sig: Inject 100 mg into a large muscle every 4 hours as needed for Headache. * Telephone Encounter - Sole Valencia [facility] - 09/09/2023 12:32 PM EDT I have [...] Medication is due for refill Pharmacy: [id number] Is this request for a controlled substance? Yes and Urine Drug Screen Not completed Toxicology results: No results found. However, due to the size of the patient record, not all encounters were searched.Please check Results Review for a complete set of results. Please approve if appropriate. Thank You Sole Valencia, PharmD Clinical Pharmacist [facility] ([facility]) [phone] / [phone] 09/09/2023, 12:32 PM documented in this encounter [...] 01/04/2013, Additional history exists HbA1c 01/13/2024 01/12/2023, 04/2021, 08/02/2009, Additional history exists Depression Screening 03/23/2024 03/23/2023 TSH 06/01/2024 06/02/2023, 03/02, 01/12/2023, Additional history exists Colonoscopy 12/21/2024 12/21/2014, 12/21/2014 Colorectal Cancer Screening 12/21/2024 Lipid Panel 01/13/2028 01/12/2023, 110 04/2021, 07/12/2020, Additional history exists DTaP,Tdap,and Td Vaccines (4 - Td or Tdap) 09/12/2029 09/13/2019, 07/18/2009, 04/01/2000 VITAMIN D LEVEL ONCE IN A LIFETIME-USE SMARTSET# [id number] Completed 01/12/2023, 07/12/2020, 09/05/2018, Additional history exists [...] and were consensually agreed upon. Care Teams Salesperson Sheet Music Relationship Specialty Start Date End Date Salvador Pike III, MD [address] [facility] [place] [address] PCP - General Family Medicine 12/25/20 documented as of this encounter
--- OUTSIDE RECORDS SUMMARY | 2023-10-16 00:32 | External Medical Summary | Summary of Care ---
Author Name Unknown Organization [facility] Address [address] [place] [address] Phone [phone] Care Team Providers Care Professional Fighter Name Role Phone Glendy RABAGO MD, Salvador Cuadra Primary Care Provider [phone] Reason for Visit * Reason Comments Acute Patient c/o shortnes s of breath and heart racing. Has made difficulty walking and walking up stairs. SOB and heart racing started appx 15-17 days ago. Has been diagnosed with Lymes. Is post-COVID, day 10. Did take Paxlovid, finished today. Encounter Details Date Type Department Care Team (Late st Contact Info) Description 09/27/2023 5:20 PM EDT Office Visit General Internal Medicine [facility] [address] [facility] [place] [address] Renuka Overton PA-C [address] [place] [address] Dyspnea on exertion*; Racing heart beat; COVID-19; Lyme disease; Leukopenia, unspecified type Allergies Active Allergy Reactions Criticality Noted Date Comments Azithromycin Hives High 07/03/2018 Dihydroergotamine High 07/03/2018 Other reaction(s): "THROAT SHUTS DOWN" Ergotamine 06/10/2001 DHE Ketorolac Tromethamine 01/08/2002 hives Penicillins 02/08/2009 rash Poison Floresita Extract Rash 06/12/2015 Azithromycin Hives 12/20/2008 documented as of this encounter (statuses as of 09/27/2023) Medications Medication Sig Dispensed Refills Start Date End Date Status LYSINE HCL 500 MG PO TABS Take by mouth. 02/01/2013 Active SENNA S 8.6-50 MG PO TABS one tablet twice daily 02/01/2013 Active Multiple Vitamins-Minerals (MULTIVITAMIN GUMMIES ADULTS) CHEW Take by mouth. Active fluticasone (FLONASE) 50 MCG/ACT nasal sprayIndications: Allergic rhinitis Administer 1 [place] into nostril daily. 16 g 5 06/12/2015 [...] by mouth in the morning. 02/13/2018 Active Ibuprofen-Famotid ine 800-26.6 MG Oral Tablet Take 1 Tab by mouth as needed. Active Ondansetron HCl 4 MG Oral TabletIndications :Common migraine with intractable migraine Take 1 Tablet (4 mg) by mouth every 6 hours as needed for Nausea. 30 Tablet 02/11/2022 Active Meclizine HCl 25 MG Oral Tablet (Antivert) Take 1 Tablet by mouth 3 times a day as needed for Dizziness. 30 Tablet 1 02/09/2023 Active SUMAtriptan Succinate 100 MG Oral TabletIndications :Migraine without aura and without status migrainosus, not intractable,Migra ine with aura and without status migrainosus, not intractable TAKE 1 TABLET AT ONSET OF MIGRAINE. MAY REPEAT IN 2 HOUR BUT NO MORE THAN 2 TABLETS IN 24 HOURS. 9 Tablet 5 02/10/2023 Active Premarin 0.625 MG/GM Vaginal Cream (Estrogens Conjugated) Insert vaginally as directed twice weekly at bedtime(mon and thurs) 90 g 3 02/25/2023 Active Emgality 120 MG/ML Subcutaneous Solution Prefilled Syringe (Galcanezumab-l ) INJECT 1 ML UNDER THE SKIN ONCE MONTHLY 1 mL 9 03/18/2023 Active Pantoprazole Sodium 40 MG Oral Tablet Delayed Release (Protonix) 02/01/2023 Active Tamsulosin HCl 0.4 MG Oral Capsule (Flomax)Indicatio ns:Calcium oxalate renal calculi,Hydroneph rosis, left 02/01/2023 Active valACYclovir HCl 1 GM Oral Tablet (Valtrex)Indicati ons:H/O cold sores Take 2 Tablets by mouth in the morning and 2 Tablets before bedtime. for cold sores. 4 Tablet 11 03/23/2023 Active Ventolin HFA 108 (90 Base) MCG/ACT Inhalation Aerosol SolutionIndicatio ns:Bronchitis, complicated,Persi stent cough for 3 weeks or longer Inhale 2 Puffs by mouth every 4 hours as needed for Wheezing or Cough. 18 g 05/29/2023 Active LORazepam 1 MG Oral Tablet (Ativan) Take [...] Active Alendronate Sodium 70 MG Oral Tablet (Fosamax)Indicati ons:Other osteoporosis without current pathological fracture Take 1 tablet by mouth weekly with 8 oz of water 30 min before the first meal of the day, remain upright for 30 min after taking tablet 12 Tablet 1 08/23/2023 Active Doxycycline Hyclate 100 MG Oral Capsule Take 1 Capsule by mouth in the morning and 1 Capsule before bedtime. 60 Capsule 08/26/2023 Active Cefuroxime Axetil 500 MG Oral Tablet (Ceftin)Indicatio ns:UTI symptoms,Bronchit is, complicated,Persi stent cough for 3 weeks or longer Take 1 Tablet by mouth in the morning and 1 Tablet before bedtime. -took in past. 20 Tablet 05/29/2023 4 Discontinue d(Medicatio n List Clean Up) predniSONE 10 MG Oral Tablet (Deltasone)Indica tions:Bronchitis, complicated,Persi stent cough for 3 weeks or longer Take 5 tabs for 2 days, 4 tabs for 2 days, 3 tabs for 2 days, 2 tabs for 2 days 1 tab for 2 days 30 Tablet 05/29/2023 4 Discontinue d(Medicatio n List Clean Up) Promethazine-DM 6.25-15 MG/5ML Oral SyrupIndications: Bronchitis, complicated,Persi stent cough for 3 weeks or longer Take 5 mL by mouth 4 times a day as needed for Cough. 120 mL 05/29/2023 4 Discontinue d(Medicatio n List Clean Up) Promethazine-Code ine 6.25-10 MG/5ML Oral Syrup (Phenergan and Codeine)Indicatio ns:Bronchitis, complicated,Persi stent cough for 3 weeks or longer Take 5 mL by mouth 4 times a day as needed for Cough. 120 mL 05/31/2023 4 Discontinue d(Medicatio n List Clean Up) Nirmatrelvir&Shane navir 300/100 20 x 150 MG & 10 x 100MG Oral Tablet Therapy Pack (Paxlovid (300/100)) Take 2 pink tablets of Nirmatrelvir and 1 white tablet of Ritonavir two times a day by mouth. 30 Tablet 09/21/2023 4 Discontinue d(Medicatio n List Clean Up) documented as of this encounter (statuses as of 09/27/2023) Active Problems Problem Noted Date Diagnosed Date [...] as of this encounter (statuses as of 09/27/2023) Resolved Problems Problem Noted Date Diagnosed Date [...] as of this encounter (statuses as of 09/27/2023) Immunizations Name Administration Dates Next Due COVID-19 [...] No 05/19/2023 Does the household have a [facility] source [facility] income? (Household - for [...] Sign Reading Time Taken Comments Blood Pressure 104/68 09/27/2023 5:27 PM EDT Pulse 76 09/27/2023 5:27 PM EDT Temperature 35.9 C (96.6 F) 09/27/2023 5:27 PM ED T Respiratory Rate 16 09/27/2023 5:27 PM EDT Oxygen Saturation 98% 09/27/2023 5:27 PM EDT Inhaled Oxygen Concentration - - Weight 61.5 kg (135 lb 8 oz) 09/27/2023 5:27 PM EDT Height - - Body Mass Index 23.26 06/28/2023 8:08 AM EDT documented in this encounter Progress Notes * Renuka Overton PA-C - 09/27/2023 5:41 PM EDT Images from the original note were not included. History of Present Illness America Bo is a 57 year old female that presents for Acute (Patient c/o shortness of breath and heart racing. Has made difficulty walking and walking up stairs. SOB and heart racing started [id number] days ago. Has been diagnosed with Lymes. Is post-COVID, day 10. Did take Paxlovid, finished today.) Pt here today with c/o a 2 1/2 week history of shortness of breath and heart racing. Feels like it is worsening. SOB and heart racing only occurring with exertion. No chest pain. Typically walks 2 miles per day. Now walking up a flight of stairs causes dyspnea. Pt was diagnosed with Lyme disease inMay. Has just finished a 30 day course of Doxy due to her fatigue and joint pain persisting. She also tested positive for COVID 10 days ago. She woke up one day with a sore throat and a fever of 102.Received Paxlovid and has completed this as well. Pt is concerned because she had similar symptoms to her current one when she had significant leukopenia several years ago. She had had a couple of illnesses back to back prior and her WBCs were practically zero. Had to receive neupogen x 7 days. Pt reports she has had a couple milder episodes sincewhen she is sick. Denies palpitations, wheezing, leg swelling. She was using a rescue inhaler before walking when SOBinitially began but noted no benefit with this and has stopped using. 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 Review of Systems: See HPI for pertinent positives. All other review of systems is negative. Physical Exam Vitals: 09/27/23 1727 Temp: 35.9 C (96.6 F) Pulse: 76 Resp: 16 SpO2: 98% BP: 104/68 Physical Exam Constitutional: General: She is not in acute distress. Appearance: She is not diaphoretic. HENT: Right Ear: Tympanic membrane, ear canal and external ear normal. Left Ear: Tympanic membrane, ear canal and external ear normal. Mouth/Throat: Mouth: Mucous membranes are moist. Pharynx: Oropharynx is clear. Cardiovascular: Rate and Rhythm: Normal rate and regular rhythm. Pulmonary: Effort: Pulmonary effort is normal. Breath sounds: Normal breath sounds. Abdominal: General: Bowel sounds are normal. Palpations: Abdomen is soft. Musculoskeletal: Cervical back: Normal range of motion and neck supple. Skin: General: Skin is warm and dry. Neurological: General: No focal deficit present. Mental Status: She is alert. Mental status is at baseline. I have reviewed the following results: Assessment and Plan Dyspnea on exertion CBC to r/o significant anemia or leukopenia. Will also add a d-dimer to r/o clot. Her vitals and exam are stable today in the office with no conversational or obvious dyspnea. - CBC WITH WBC DIFFERENTIAL; Future - D-DIMER; Future Racing heart beat Update TSH. On review of pt's fitbit readings, HR extending into 120s at times for brief periods and no higher. - TSH WITH FREE T4 IF INDICATED; Future - D-DIMER; Future COVID-19 Symptoms have essentially resolved. D-dimer to r/o clot. - D-DIMER; Future Lyme disease Doxy completed. Leukopenia, unspecified type CBC ordered. - CBC WITH WBC DIFFERENTIAL; Future Wrap-Up Pt would like to have labs drawn at her office in the morning. Lab here is closed for the day. Willawait these results. Discussed with pt that if labs unremarkable, may want to consider a court monitor. She is agreeable to this and states she could arrange this with her job if necessary. Also had a discussion with pt that if she develops SOB at rest, HR goes up and won't come back down, she develops chest pain, etc, she needs to go to the ER for eval. She voiced understanding. Time: I spent a total of 30-39 minutes (exact time 38 mins) on the date of service in preparation, delivery, and documentation of the care provided to America Bo excluding any time spent in the performance of separately billed services. documented in this encounter Nursing Notes * Pamela Chatterjee, MED ASSIST - 09/27/2023 5:33 PM EDT Chief Complaint Patient presents with Acute Patient c/o shortness of breath and heart racing. Has made difficulty walking and walking up stairs. SOB and heart racing started appx 15-17 days ago. Has been diagnosed with Lymes. Is post-COVID, day 10. Did take Paxlovid, finished today. documented in this encounter Plan of Treatment Scheduled Orders Name Type Priority Associated Diagnoses Orde r Schedule CBC WITH WBC DIFFERENTIAL Lab Routine Dyspnea on exertion Leukopenia, unspecified type Expected: 09/27/2023 (Approximate), Expires: 09/26/2024 TSH WITH FREE T4 IF INDICATED Lab Routine Racing heart beat Expected: 09/27/2023 (Approximate), Expires: 09/26/2024 D-DIMER Lab Routine Dyspnea on exertion Racing heart beat COVID-19 Expected: 09/27/2023 (Approximate), Expires: 09/26/2024 Scheduled Procedures Name Priority Associated Diagnoses Date/Ti [...] D LEVEL ONCE IN A LIFETIME-USE SMARTSET# [id number] Completed 01/12/2023, 07/12/2020, 09/05/2018, Additional history exists [...] as of this encounter Visit Diagnoses Diagnosis Dyspnea on exertion- Primary Other dyspnea and respiratory abnormality Racing heart beat Tachycardia, unspecified COVID-19 Lyme disease Leukopenia, unspecified type documented in this encounter Advance Directives * Full Code (Latest Code Status on File) Date Activated Date Inactivated Comments 06/07/2011 11:19 PM 06/10/2011 3:09 PM This order r eflects the patients wishes and were consensually agreed upon. Care Teams Professional Fighter Relationship Specialty Start Date End Date Salvador Pike III, MD [address] [place] [address] PCP - General Family Medicine 12/25/20 documented as of this encounter
--- OUTSIDE RECORDS SUMMARY | 2023-10-16 00:32 | External Medical Summary | Summary of Care ---
Author Name Unknown Organization [facility] Address [address] [facility] [address] Phone [phone] Care Team Providers Care Surface Grinding Machine Hand Name Role Phone Glendy RABAGO MD, Salvador Cuadra Primary Care Provider [phone] Encounter Details Date Type Department Care Team (Late st Contact Info) Description 06/25/2023 Telephone OR [facility], Operating Room [facility] [address] [place] [phone] Logan Rodriguez, [address] [place] [id number] Allergies Active Allergy Reactions Criticality Noted Date Comments Azithromycin Hives High 07/03/2018 Dihydroergotamine High 07/03/2018 Other reaction(s): "THROAT SHUTS DOWN" Ergotamine 06/10/2001 DHE Ketorolac Tromethamine 01/08/2002 hives Penicillins 02/08/2009 rash Poison Floresita Extract Rash 06/12/2015 Azithromycin Hives 12/20/2008 documented as of this encounter (statuses as of 09/24/2023) Medications Medication Sig Dispensed Refills Start Date End Date Status LYSINE HCL 500 MG PO TABS Take by mouth. 02/01/2013 Active SENNA S 8.6-50 MG PO TABS one tablet twice daily 02/01/2013 Active Multiple Vitamins-Minerals (MULTIVITAMIN GUMMIES ADULTS) CHEW Take by mouth. Active fluticasone (FLONASE) 50 MCG/ACT nasal sprayIndications:A llergic rhinitis Administer 1 [place] into nostril daily. 16 g 5 06/12/2015 [...] directed twice weekly at bedtime(wed and ) 90 g 3 02/25/2023 Active Emgality 120 MG/ML Subcutaneous Solution Prefilled Syringe (Galcanezumab-[facility] ) INJECT 1 ML UNDER THE [...] other meds). 105 Tablet 2 06/03/2023 Active Alendronate Sodium 70 MG Oral Tablet (Fosamax)Indicatio ns:Other osteoporosis without current pathological fracture Take 1 tablet by mouth weekly with 8 oz of water 30 min before the first meal of the day, remain upright for 30 min after taking tablet 12 Tablet 2 02/25/2023 4 Discontinue d(Refill) Meperidine HCl 100 MG/ML Injection Solution (Demerol)Indicatio ns:Common migraine with intractable migraine Inject 100 mg into a large muscle every 4 hours as needed for Headache. 1 mL 06/02/2023 4 Discontinue d(Refill) documented as of this encounter (statuses as of 09/24/2023) Active Problems Problem Noted Date Diagnosed Date [...] as of this encounter (statuses as of 09/24/2023) Resolved Problems Problem Noted Date Diagnosed Date [...] as of this encounter (statuses as of 09/24/2023) Immunizations Name Administration Dates Next Due COVID-19 [...] No 05/19/2023 Does the household have a re gular source of income? (Household - for ages [...] encounter Miscellaneous Notes * Telephone Encounter - Reva Wagner RN - 06/25/2023 9:34 AM EDT Attempted to call for pre anesthesia evaluation. No answer. Voice mail left requesting return call documented in this encounter Plan of Treatment [...] D LEVEL ONCE IN A LIFETIME-USE SMARTSET# [id number] Completed 01/12/2023, 07/12/2020, 09/05/2018, Additional history exists [...] filedocumented as of this encounter Advance Directives * Full Code (Latest Code Status on File) Date Activated Date Inactivated Comments 06/07/2011 11:19 PM 06/10/2011 3:09 PM This order r eflects the patients wishes and were consensually agreed upon. Care Teams Surface Grinding Machine Hand Relationship Specialty Start Date End Date Salvador Pike III, MD [address] [facility] [place] [address] PCP - General Family Medicine 12/25/20 documented as of this encounter
--- OUTSIDE RECORDS SUMMARY | 2023-10-16 00:32 | External Medical Summary | Summary of Care ---
Author Name Unknown Organization [facility] Address [address] [place] [address] Phone [phone] Care Team Providers Care Religion Teacher Name Role Phone Glendy RABAGO MD, Salvador Cuadra Primary Care Provider [phone] Reason for Visit * Reason Comments eRx-Medication Refill Encounter Details Date Type Department Care Team (Late st Contact Info) Description 09/13/2023 Refill Family Practice [facility] [address] [facility] [place] [address] Monserrat Cabrera, [address] [place] [address] Common migraine with intractable migraine Allergies Active Allergy Reactions Criticality Noted Date Comments Azithromycin Hives High 07/03/2018 Dihydroergotamine High 07/03/2018 Other reaction(s): "THROAT SHUTS DOWN" Ergotamine 06/10/2001 DHE Ketorolac Tromethamine 01/08/2002 hives Penicillins 02/08/2009 rash Poison Floresita Extract Rash 06/12/2015 Azithromycin Hives 12/20/2008 documented as of this encounter (statuses as of 09/15/2023) Medications Medication Sig Dispensed Refills Start Date End Date Status LYSINE HCL 500 MG PO TABS Take by mouth. 02/01/2013 Active SENNA S 8.6-50 MG PO TABS one tablet twice daily 02/01/2013 Active Multiple Vitamins-Minerals (MULTIVITAMIN GUMMIES ADULTS) CHEW Take by mouth. Active fluticasone (FLONASE) 50 MCG/ACT nasal sprayIndications:Al lergic rhinitis Administer 1 Deal into nostril daily. 16 g 5 06/12/2015 [...] by mouth in the morning. 02/13/2018 Active Ibuprofen-Famotidin e 800-26.6 MG Oral Tablet Take 1 Tab by mouth as needed. Active Ondansetron HCl 4 MG Oral TabletIndications:C ommon migraine with intractable migraine Take 1 Tablet (4 mg) by mouth every 6 hours as needed for Nausea. 30 Tablet 02/11/2022 Active Meclizine HCl 25 MG Oral Tablet (Antivert) Take 1 Tablet by mouth 3 times a day as needed for Dizziness. 30 Tablet 1 02/09/2023 Active SUMAtriptan Succinate 100 MG Oral TabletIndications:M [...] Emgality 120 MG/ML Subcutaneous Solution Prefilled Syringe (Galcanezumab-[facility]) INJECT 1 ML UNDER THE SKIN ONCE MONTHLY 1 mL 9 03/18/2023 Active Pantoprazole Sodium 40 MG Oral Tablet Delayed Release (Protonix) 02/01/2023 Active Tamsulosin HCl 0.4 MG Oral Capsule (Flomax)Indications :Calcium oxalate renal calculi,Hydronephro sis, left 02/01/2023 Active valACYclovir HCl 1 GM Oral Tablet (Valtrex)Indication s:H/O cold sores Take 2 Tablets by mouth in the morning and 2 Tablets before bedtime. for cold sores. 4 Tablet 11 03/23/2023 Active Additional Information Patient not taking.Reported on 06/28/2023 Cefuroxime Axetil 500 MG Oral Tablet (Ceftin)Indications :UTI symptoms,Bronchitis , complicated,Persist ent cough for 3 weeks or longer Take 1 Tablet by mouth in the morning and 1 Tablet before bedtime. -took in past. 20 Tablet 05/29/2023 Active predniSONE 10 MG Oral Tablet (Deltasone)Indicati ons:Bronchitis, complicated,Persist ent cough for 3 weeks or longer Take 5 tabs for 2 days, 4 tabs for 2 days, 3 tabs for 2 days, 2 tabs for 2 days 1 tab for 2 days 30 Tablet 05/29/2023 Active Ventolin HFA 108 (90 Base) MCG/ACT Inhalation Aerosol SolutionIndications :Bronchitis, complicated,Persist ent cough for 3 weeks or longer Inhale 2 Puffs by mouth every 4 hours as needed for Wheezing or Cough. 18 g 05/29/2023 Active Promethazine-DM 6.25-15 MG/5ML Oral SyrupIndications:Br onchitis, complicated,Persist ent cough for 3 weeks or longer Take 5 mL by mouth 4 times a day as needed for Cough. 120 mL 05/29/2023 Active Additional Information Patient not taking.Reported on 06/28/2023 Promethazine-Codein e 6.25-10 MG/5ML Oral Syrup (Phenergan and Codeine)Indications :Bronchitis, complicated,Persist ent cough for 3 weeks or longer Take [...] needed for Headache. 1 mL 09/10/2023 Active documented as of this encounter (statuses as of 09/15/2023) Active Problems Problem Noted Date Diagnosed Date [...] as of this encounter (statuses as of 09/15/2023) Resolved Problems Problem Noted Date Diagnosed Date [...] as of this encounter (statuses as of 09/15/2023) Immunizations Name Administration Dates Next Due COVID-19 [...] encounter Miscellaneous Notes * Telephone Encounter - Shilpa Dunham [facility] - 09/15/2023 12:17 PM EDTRefused Prescriptions: Disp Refills Meperidine HCl 100 MG/ML Injection Solutio*1 mL 0 Sig: Inject 100 mg into a large muscle every 4 hours as needed for Headache.Refused By: SHILPA DUNHAM LRabigailon forRefusal: Duplicate Request documented in this encounter Plan of Treatment [...] D LEVEL ONCE IN A LIFETIME-USE SMARTSET# [id number] Completed 01/12/2023, 07/12/2020, 09/05/2018, Additional history exists [...] and were consensually agreed upon. Care Teams Religion Teacher Relationship Specialty Start Date End Date Salvador Pike III, MD [address] [facility] [place] [address] PCP - General Family Medicine 12/25/20 documented as of this encounter
--- OUTSIDE RECORDS SUMMARY | 2023-10-16 00:33 | External Medical Summary | Continuity of Care Document ---
Author Name Unknown Organization [facility] [address] Address [address] [place], [place] [id number] Care Team Providers Care Fleet Manager Name Role Phone Salvador Pike Primary Care Physician [phone] Encounter [facility]NBR [id number] Date(s): 08/03/23 - 08/03/[address] [facility] [address] [facility] [address] [facility] [address] [place], [place] [phone] Encounter Diagnosis Edema, unspecified(Final) - Other forms of dyspnea(Final) - Discharge Disposition: Home or Self Care Attending Physician: LING Curry Sarah A Referring Physician: LING Curry Sarah A Results Laboratory List Name Date Basic Metabolic Panel (BASIC METAB PANEL ) 08/03/23 NT-Pro BNP 08/03/23 Most recent to oldest [Reference Range]: 1 eGFR CKD-EPI [>60 mL/min/1.73 m2] 88 mL/ min/1.73 m2 1 (08/03/23 1:14 PM) BNP, NT-Pro [<125 pg/mL] 56 pg/mL (08/03/23 1:14 PM) Anion Gap [5-14 mmol/L] 9 mmol/L (08/03/23 1:14 PM) BUN [7-20 mg/dL] 14 mg/dL (08/03/23 1:14 PM) Ca [8.4-10.2 mg/dL] 9.6 mg/dL (08/03/23 1:14 PM) Cl- [96-107 mmol/L] 104 mmol/L (08/03/23 1:14 PM) HCO3 [22-30 mmol/L] 26 mmol/L (08/03/23 1:14 PM) Cret [0.60-1.00 mg/dL] 0.78 mg/dL (08/03/23 1:14 PM) Glu [74-106 mg/dL] 114 mg/dL *HI* (08/03/23 1:14 PM) K [3.5-5.1 mmol/L] 4.2 mmol/L (08/03/23 1:14 PM) Na [137-145 mmol/L] 139 mmol/L (08/03/23 1:14 PM) 1Result Comment: Testing Performed By: Dept of Pathology [facility] [address], [address], [place], [place] [address] Patient Care team information Care Team Personnel Name: MD Pike John E Position: Referring DIRECT Member Role: Primary Care Provider Address: Address: [address] [place], [place] [address]
--- OUTSIDE RECORDS SUMMARY | 2023-10-16 00:33 | External Medical Summary | Continuity of Care Document ---
Author Name Unknown Organization [facility] [address] Address [address] [place], [place] [id number] Care Team Providers Care Lacing Operator Name Role Phone Salvador Pike Primary Care Physician [phone] Encounter [facility] FINNBR [id number] Date(s): 08/03/23 - 08/03/23 [facility] [address] [facility] 1 [facility] [address] [facility] [place], [place] [phone] Encounter Diagnosis Edema, unspecified(Final) - Other forms [...] Pathology [facility] [address], [address], [place], [place] [address] Patient Care team information Care Team Personnel Name: MD Pike John E Position: Referring DIRECT Member Role: Primary Care Provider Address: Address: [address] [place], [place] [address]
--- OUTSIDE RECORDS SUMMARY | 2023-10-16 00:33 | External Medical Summary | Summary of Care ---
Author Name Unknown Organization [facility] Address [address] [place] [address] Phone [phone] Care Team Providers Care Public Policy Mediator Name Role Phone Glendy RABAGO MD, Salvador Cuadra Primary Care Provider [phone] Reason for Visit * Reason Onset Date Comments Test Results 07/21/2023 Encounter Details Date Type Department Care Team (Late st Contact Info) Description 07/21/2023 Telephone Family Practice [facility] [address] [place] [address] Salvador Pike III, MD [address] [place] [address] Test Results Allergies Active Allergy Reactions Criticality Noted Date Comments Azithromycin Hives High 07/03/2018 Dihydroergotamine High 07/03/2018 Other reaction(s): "THROAT SHUTS DOWN" Ergotamine 06/10/2001 DHE Ketorolac Tromethamine 01/08/2002 hives Penicillins 02/08/2009 rash Poison Floresita Extract Rash 06/12/2015 Azithromycin Hives 12/20/2008 documented as of this encounter (statuses as of 08/10/2023) Medications Medication Sig Dispensed Refills Start Date End Date Status LYSINE HCL 500 MG PO TABS Take by mouth. 02/01/2013 Active SENNA S 8.6-50 MG PO TABS one tablet twice daily 02/01/2013 Active Multiple Vitamins-Minerals (MULTIVITAMIN GUMMIES ADULTS) CHEW Take by mouth. Active fluticasone (FLONASE) 50 MCG/ACT nasal sprayIndications:A llergic rhinitis Administer 1 [place] into nostril daily. 16 g 5 06/12/2015 [...] and ) 90 g 3 02/25/2023 Active Alendronate Sodium 70 MG Oral Tablet (Fosamax)Indicatio ns:Other osteoporosis without current pathological fracture Take 1 tablet by mouth weekly with 8 oz of water 30 min before the first meal of the day, remain upright for 30 min after taking tablet 12 Tablet 2 02/25/2023 Active Additional Information Patient taking differently: Take 1 tablet by mouth weekly with 8 oz of water 30 min before the first meal of the day, remain upright for 30 min after taking tablet--SATURDAYS, Reported on 06/28/2023 Emgality 120 MG/ML Subcutaneous Solution Prefilled Syringe [...] as needed for Headache. 1 mL 06/02/2023 Discontinue d(Refill) documented as of this encounter (statuses as of 08/10/2023) Active Problems Problem Noted Date Diagnosed Date [...] as of this encounter (statuses as of 08/10/2023) Resolved Problems Problem Noted Date Diagnosed Date [...] as of this encounter (statuses as of 08/10/2023) Immunizations Name Administration Dates Next Due COVID-19 [...] Telephone Encounter - Monserrat Cabrera DO - 08/10/2023 4:[address] Nick called in abx 07/22. Monserrat Cabrera DO * Telephone Encounter - Karla Vivar LPN - 08/10/2023 11:29 AM EDT Lyme's test dated 07/15/2023 is in chart, please review and advise. * Telephone Encounter - Kimberli Lynn OSA - 07/23/2023 2:51 PM EDT Pt is having lab results faxed over from [employer].Pt states she tested positive for lyme disease and is in pain. Pt would like a call to discuss results. * Telephone Encounter - Shannan Vernon OSA - 07/22/2023 1:58 PM EDT Please advise if any results were received. * Telephone Encounter - Makenzie Mckeon LPN - 07/21/2023 2:04 PM EDT I do not see anything scanned into patients chart. Was anything received? * Telephone Encounter - Odette Gold OSA - 07/21/2023 7:14 AM EDT Pt states she had Lyme testing done at [facility] and was wondering if the results were faxed to the office and what the results were. Patient has been made aware that the turnaround time for test results are typically as follows: Laboratory results = within 2-3 days ([facility]), 3-5 days (Non[facility], ie[facility]) Urine Cultures = within 2-3 days depending on growth within the culture Pathology results (biopsy results/PAP) = 1-2 weeks Radiology results = about 1 week Cologuard results = within 2 weeks from the shipment date COVID testing = about 24 hoursWho is Requesting Test Results: patient Primary Care Provider : Salvador Pike III, MD Tests Results Requested : Lyme testing Date of Test : 07/14/2023 Location of Test: [facility] Ordering Provider: Ricky Nick Patient has been made aware that the turnaround time for test results are typically as follows: Laboratory results = within 2-3 days ([facility]), 3-5 days ([facility], ie[facility]) Urine Cultures = within 2-3 days depending on growth within the culture Pathology results (biopsy results/PAP) = 1-2 weeks Radiology results = about 1 week Cologuard results = within 2 weeks from the shipment date COVID testing = about 24 hours documented in this encounter Plan of Treatment [...] 2022 01/10/2021, 03/27/2020, 02/28/2020 HbA1c 01/13/2024 01/12/2023, 110 04/2021, 08/02/2009, Additional history exists Depression Screening [...] D LEVEL ONCE IN A LIFETIME-USE SMARTSET# [id number] Completed 01/12/2023, 07/12/2020, 09/05/2018, Additional history exists [...] and were consensually agreed upon. Care Teams Public Policy Mediator Relationship Specialty Start Date End Date Salvador Pike III, MD [address] [place] [address] PCP - General Family Medicine 12/25/20 documented as of this encounter
--- OUTSIDE RECORDS SUMMARY | 2023-10-16 01:55 | External Medical Summary | Summary of Care ---
Author Name Unknown Organization [facility] Address [address] [place] [address] Phone [phone] Care Team Providers Care Army Manager Name Role Phone Glendy RABAGO MD, Salvador Cuadra Primary Care Provider [phone] Reason for Visit * Reason Onset Date Comments Advice 2023 Encounter Details Date Type Department Care Team (Late st Contact Info) Description 2023 Telephone Family Practice [facility] [address] [place] [address] Salvador Pike III, MD [address] [place] [address] Advice Allergies Active Allergy Reactions Criticality Noted Date Comments Azithromycin Hives High 07/03/2018 Dihydroergotamine High 07/03/2018 Other reaction(s): "THROAT SHUTS DOWN" Ergotamine 06/10/2001 DHE Ketorolac Tromethamine 01/08/2002 hives Penicillins 02/08/2009 rash Poison Floresita Extract Rash 06/12/2015 Azithromycin Hives 12/20/2008 documented as of this encounter (statuses as of 2023) Medications Medication Sig Dispensed Refills Start Date End Date Status LYSINE HCL 500 MG PO TABS Take by mouth. 02/01/2013 Active SENNA S 8.6-50 MG PO TABS one tablet twice daily 02/01/2013 Active Multiple Vitamins-Minerals (MULTIVITAMIN GUMMIES ADULTS) CHEW Take by mouth. Active fluticasone (FLONASE) 50 MCG/ACT nasal sprayIndications:All ergic rhinitis Administer 1 [place] into nostril daily. 16 g 5 06/12/2015 [...] by mouth in the morning. 02/13/2018 Active Ibuprofen-Famotidine 800-26.6 MG Oral Tablet Take 1 Tab by mouth as needed. Active Ondansetron HCl 4 MG Oral TabletIndications:Co mmon migraine with intractable migraine Take 1 Tablet (4 mg) by mouth every 6 hours as needed for Nausea. 30 Tablet 02/11/2022 Active Meclizine HCl 25 MG Oral Tablet (Antivert) Take 1 Tablet by mouth 3 times a day as needed for Dizziness. 30 Tablet 1 02/09/2023 Active SUMAtriptan Succinate 100 MG Oral TabletIndications:Mi graine without aura and without status migrainosus, not intractable,Migraine with aura and without status migrainosus, not [...] Subcutaneous Solution Prefilled Syringe (Galcanezumab-[facility]) INJECT 1 ML UNDER THE SKIN ONCE MONTHLY 1 mL 9 03/18/2023 Active Pantoprazole Sodium 40 MG Oral Tablet Delayed Release (Protonix) 02/01/2023 Active Tamsulosin HCl 0.4 MG Oral Capsule (Flomax)Indications: Calcium oxalate renal calculi,Hydronephros is, left 02/01/2023 Active valACYclovir HCl 1 GM Oral Tablet (Valtrex)Indications :H/O cold sores Take 2 Tablets by mouth in the morning and 2 Tablets before bedtime. for cold sores. 4 Tablet 11 03/23/2023 Active Ventolin HFA 108 (90 Base) MCG/ACT Inhalation Aerosol SolutionIndications: Bronchitis, complicated,Persiste nt cough for 3 weeks or longer Inhale [...] Active Alendronate Sodium 70 MG Oral Tablet (Fosamax)Indications :Other osteoporosis without current pathological fracture Take 1 tablet by mouth weekly with 8 oz of water 30 min before the first meal of the day, remain upright for 30 min after taking tablet 12 Tablet 1 08/23/2023 Active Doxycycline Hyclate 100 MG Oral Capsule Take 1 Capsule by mouth in the morning and 1 Capsule before bedtime. 60 Capsule 08/26/2023 Active documented as of this encounter (statuses as of 2023) Active Problems Problem Noted Date Diagnosed Date [...] as of this encounter (statuses as of 2023) Resolved Problems Problem Noted Date Diagnosed Date [...] as of this encounter (statuses as of 2023) Immunizations Name Administration Dates Next Due COVID-19 [...] encounter Miscellaneous Notes * Telephone Encounter - Jodi Andersen OSA - 2023 2:19 PM EDT Patient would like to orange picking supervisor referral in person for hematology [phone]. She would also like to call her directly. documented in this encounter Plan of Treatment [...] Scan 12/23/2020 12/23/2018 COVID-19 Vaccine (4 - season) 2022 01/10/2021, 03/27/2020, 02/28/2020 Influenza Vaccine (FLU shot) (#1) 2023 11/29/2022, 12/18/2020, 01/04/2013, Additional history exists HbA1c 01/13/2024 01/12/2023, 110 04/2021, 08/02/2009, Additional history exists Depression Screening 03/23/2024 03/23/2023 TSH 09/27/2024 09/28/2023, 04/0 04/2023, 03/24/2023, Additional history exists Colonoscopy 12/21/2024 12/21/2014, 12/21/2014 Colorectal Cancer Screening 12/21/2024 Lipid Panel 01/13/2028 01/12/2023, 11/0 04/2021, 07/12/2020, Additional history exists DTaP,Tdap,and Td Vaccines (4 - Td or Tdap) 09/12/2029 09/13/2019, 07/18/2009, 04/01/2000 VITAMIN D LEVEL ONCE IN A LIFETIME-USE SMARTSET# [id number] Completed 01/12/2023, 07/12/2020, 09/05/2018, Additional history exists [...] and were consensually agreed upon. Care Teams Army Manager Relationship Specialty Start Date End Date Salvador Pike III, MD [address] [facility] [place] [address] PCP - General Family Medicine 12/25/20 documented as of this encounter
--- OUTSIDE RECORDS SUMMARY | 2023-10-16 01:56 | External Medical Summary | Summary of Care ---
Author Name Unknown Organization [facility] Address [address] [place] [address] Phone [phone] Care Team Providers Care Content Coordinator Name Role Phone Glendy RABAGO MD, Salvador Cuadra Primary Care Provider [phone] Reason for Referral * Evaluate & Treat - Unlimited Visits (Within 3 days (urgent)) - Authorized Specialty Diagnoses / Procedures Referred By Conttri t Referred To Contact Hematology/Oncology / Hematology Oncology Diagnoses Leukopenia, unspecified type Abnormal CBC Renuka Overton PA-C [address] [place] [address] Referral ID Status Reason Start Date Expiration Date Visits Requested Visits Authorized [id number] Authorized Specialty Services Required 10/01/2023 999 999 Question Answer Referral Priority Within 3 days (urgent) Where should this appointment be scheduled? External - [facility] Reason for Referral Abnormal CBC Reason for Visit * Reason Onset Date Comments Test Results Biopsy 10/01/2023 Encounter Details Date Type Department Care Team (Late st Contact Info) Description 10/01/2023 Telephone Family Practice [facility] [address] [place] [address] Salvador Pike III, MD [address] [place] [address] Test Results Biopsy Allergies Active Allergy Reactions Criticality Noted Date [...] MCG/ACT nasal sprayIndications:All ergic rhinitis Administer 1 [place] into nostril daily. 16 g 5 06/12/2015 [...] Emgality 120 MG/ML Subcutaneous Solution Prefilled Syringe (Galcanezumab-gnlm) INJECT 1 ML UNDER THE SKIN ONCE [...] encounter Miscellaneous Notes * Telephone Encounter - Kajal Feldman OSA - 2023 2:27 PM EDT Received a call requesting forms completed. Name/Company: [employer] What forms are being requested?: The Hemo referral, office notes, diagnosis and the labs from September 28, 2023 Were forms dropped off, mailed, or faxed (include date)?: fax number [phone] Date needed by: [facility] *Please inform the patient it can take 5-7 business days for the office to process a forms request. * Telephone Encounter - Renuka Overton PA-C - 10/01/2023 12:19 PM EDT Referral placed. Thank you. * Telephone Encounter - Kristen Terry MED [employer] - 10/01/2023 11:52 AM EDT Patient aware and receptive to instructions. She was last seen by hematology in 2019. She would like to be seen there again and needs a referral to [facility]. They would like the referral, last office note and referral faxed over to them. * Telephone Encounter - Kristen Terry MED ASSIST - 10/01/2023 11:49 AM EDT ----- Message from Renuka Overton sent at 09/30/2023 4:43 PM EDT ----- Noted pt's CBC is showing her WBCs to be low at 2.67. It is also showing a moderate amount of smudge cells, which are broken or damaged white blood cells. Does she follow with a regional program manager currently? If not, would recommend to f/up on her CBC findings. Her TSH and d-dimer were both normal. documented in this encounter Plan of Treatment Scheduled Procedures Name Priority Associated Diagnoses Date/Ti me COLONOSCOPY FLEXIBLE PROXIMA L DIAGNOSTIC Recall Special screening for malignant neoplasms, colon Scheduled Referrals Name Type Priority Associated Diagnoses Orde r Schedule HEMATOLOGY/ONCOLOGY REFERRAL OP Referral Within 3 days (urgent) Leukopenia, unspecified type Abnormal CBC Ordered: 10/01/2023 Health Maintenance Due Date Last Done Comments [...] Depression Screening 03/23/2024 03/23/2023 TSH 09/27/2024 09/28/2023, 040 04/2023, 03/24/2023, Additional history exists Colonoscopy 12/21/2024 12/21/2014, 12/21/2014 Colorectal Cancer Screening 12/21/2024 Lipid Panel 01/13/2028 01/12/2023, 04/2021, 07/12/2020, Additional history exists DTaP,Tdap,and Td Vaccines (4 - Td or Tdap) 09/12/2029 09/13/2019, 07/18/2009, 04/01/2000 VITAMIN D LEVEL ONCE IN A LIFETIME-USE SMARTSET# [id number] Completed 01/12/2023, 07/12/2020, 09/05/2018, Additional history exists [...] as of this encounter Visit Diagnoses Diagnosis Leukopenia, unspecified type- Primary Abnormal CBC Other abnormal blood chemistry documented in this encounter Advance Directives * Full Code (Latest Code Status on File) Date Activated Date Inactivated Comments 06/07/2011 11:19 PM 06/10/2011 3:09 PM This order r eflects the patients wishes and were consensually agreed upon. Care Teams Content Coordinator Relationship Specialty Start Date End Date Salvador Pike III, MD [address] [facility] [place] [address] PCP - General Family Medicine 12/25/20 documented as of this encounter
--- OUTSIDE RECORDS SUMMARY | 2023-10-16 01:56 | External Medical Summary | Summary of Care ---
Author Name Unknown Organization [facility] Address [address] [place] [address] Phone [phone] Care Team Providers Care Artificial Flower Maker Name Role Phone Glendy RABAGO MD, Salvador Cuadra Primary Care Provider [phone] Reason for Referral * Evaluate & Treat - Unlimited Visits (Within 3 days (urgent)) - Authorized Specialty Diagnoses / Procedures Referred By Conttri t Referred To Contact Hematology/Oncology / Hematology Oncology Diagnoses Leukopenia, unspecified type Abnormal CBC Renuka Overton PA-C [address] [place] [address] Referral ID Status Reason Start Date Expiration Date Visits Requested Visits Authorized [id number] Authorized Specialty Services Required 10/01/2023 999 999 Question Answer Referral Priority Within 3 days (urgent) Where should this appointment be scheduled? External - [facility] Reason for Referral Abnormal CBC Reason for Visit * Reason Onset Date Comments Test Results Biopsy 10/01/2023 Encounter Details Date Type Department Care Team (Late st Contact Info) Description 10/01/2023 Telephone Family Practice [facility] [address] [place] [address] Salvador Pike III, MD [address] [place] [address] Test Results Biopsy Allergies Active Allergy Reactions [...] MCG/ACT nasal sprayIndications:All ergic rhinitis Administer 1 [place] into nostril daily. 16 g 5 06/12/2015 [...] mailed, or faxed (include date)?: fax number [phone] Date needed by: [facility] *Please inform the patient it can take 5-7 business days for the office to process a forms request. * Telephone Encounter - Renuka Overton PA-C - 10/01/2023 12:19 PM EDT Referral placed. Thank you. * Telephone Encounter - Kristen Terry MED [employer] - 10/01/2023 11:52 AM EDT Patient aware and receptive to instructions. She was last seen by hematology in 2019. She would like to be seen there again and needs a referral to [facility]. They would like the [...] blood cells. Does she follow with a spouting installer currently? If not, would recommend to f/up [...] D LEVEL ONCE IN A LIFETIME-USE SMARTSET# [id number] Completed 01/12/2023, 07/12/2020, 09/05/2018, Additional history exists [...] and were consensually agreed upon. Care Teams Artificial Flower Maker Relationship Specialty Start Date End Date Salvador Pike III, MD [address] [facility] [place] [address] PCP - General Family Medicine 12/25/20 documented as of this encounter
[2023-10-16 04:37] LABS: Hematocrit (blood only) 36.9 % (37.0-47.0); Hemoglobin 12.4 g/dl (12.0-16.0); Mean Corpuscular Hemoglobin 29.3 pg (25.0-34.0); Mean Corpuscular Hgb Conc 33.6 g/dL (32.0-36.0); Mean Corpuscular Volume 87.2 fL (80.0-100.0); Platelet Count 134 K/uL (130-400); RDW Coefficient of Variation 13.2 % (11.5-14.5); RDW Standard Deviation 42.2 fL (36.4-46.3); Red Blood Count 4.23 M/uL (4.20-5.40); White Blood Count 2.57 K/ul (4.8-10.8)
[2023-10-16 04:44] LABS: BUN Creatinine Ratio 18.9 (10-20); Calcium 8.5 mg/dl (8.6-10.3); Creatinine Clr Calc Pharmacy 58.1 ml/min; Est GFR (African American) 81.1 ml/min
[2023-10-16 05:17] LABS: Ovalocytes 1+
[2023-10-16 05:18] LABS: Basophils # (auto) 0.05 K/uL (0.00-0.20); Basophils % (auto) 1.9 %; Eosinophils # (auto) 0.13 K/uL (0.00-0.50); Eosinophils % (auto) 5.1 %; Lymphocytes # (auto) 1.08 K/uL (1.20-3.40); Monocytes # (auto) 0.33 K/uL (0.11-0.59); Monocytes % (auto) 12.8 %; Neutrophils # (auto) 0.98 K/uL (1.40-6.50); Neutrophils % (auto) 38.2 %
[2023-10-16] MEDS: LEVOTHYROXINE SODIUM 25 MCG TABLET PO SCH (06:05)
[2023-10-16 06:17] LABS: D Dimer 260 ug/L FEU (0-500)
[2023-10-16] MEDS: PANTOprazole 40 MG TAB PO SCH (08:21)
[2023-10-16] MEDS: MULTIVITAMIN TAB PO SCH (08:21)
[2023-10-16] MEDS: FOLIC ACID 400 MCG TAB PO SCH (08:21)
--- NOTE | 2023-10-16 08:35 | Electrocardiogram Report ---
Test Reason : Blood Pressure : */* mmHG Vent. Rate : 70 BPM Atrial Rate : 70 BPM P-R Int : 172 ms QRS Dur : 118 ms QT Int : 410 ms P-R-T Axes : 18 -26 22 degrees QTcB Int : 442 ms Normal sinus rhythm Low voltage QRS Right bundle branch block with repolarization abnormality Abnormal ECG When compared with ECG of 29-Jan-2023 10:36, No significant change Confirmed by Pardeep Martinez ([id number]) on 10/16/2023 8:35:35 AM Referred By: REFERRED SELF Confirmed By: Pardeep Martinez
[2023-10-16] MEDS: ADVANCED PROBIOTIC 625 MG CAPSULE PO SCH (12:34)
--- NOTE | 2023-10-16 14:11 | Cardiology Consultation ---
Date of Consultation October 16, 2023 Assessment & Plan (1) Exertional dyspnea: (2) Second degree heart block: (3) Lyme carditis: (4) PFO with atrial septal aneurysm: Plan 58-year-old woman with recent onset dyspnea on exertion which appears to be secondary to intermittent second-degree AV block (2:1 conduction, therefore unable to assess whether Mobitz 1 or Mobitz 2). Of note, contrary to benefit being from increased activity (which would be expected to diminish block which was caused by vasovagal phenomenon), patient actually developed second-degree block during stress test at Dr. Parker's office. Although it is possible that her heart block is due to fibrosis/degeneration (whether age related or from prior Lyme infections), would seem prudent to treat for presumed AV ángel inflammation from Lyme carditis. As such, patient is receiving IV ceftriaxone and has not shown any recurrent dysrhythmia at rest. She will be hospitalized over the weekend to receive IV antibiotics and for formal infectious disease evaluation on Wednesday. She should remain on telemetry during this time but could gradually increase activity. No indication for pacemaker at this time, since her symptoms are transient and there has not been evidence of complete heart block or sustained dysrhythmia. Further recommendations based on her symptomatic and telemetry response to treatment of presumed Lyme carditis. PFO with atrial septal aneurysm incidentally noted but requires no specific treatment beyond continuing daily aspirin. Outpatient follow-up will be with Dr. Gilman and Dr. Parker. History of Present Illness Reason for Consultation: bradycardia Requesting Physician: Tonio Espitia MD Attending Physician: Tonio Espitia MD History of Present Illness 58-year-old woman with previously minor cardiac history (evaluated by Dr. Parker's office for PFO 2022, no intervention advised) who notes 1 month of diminished exercise tolerance, lightheadedness, and presyncope and was found on ambulatory monitoring and recent stress study to have episodic 2:1 second-degree heart block. She has had multiple episodes of treated Lyme disease, last in June 2023 after which she completed a course of doxycycline. She was undergoing evaluation this week by Dr. Gilman at Dr. Parker's office for her exertional dyspnea, ambulatory monitoring notes recent episodes of 2:1 second-degree AV block, on a stress study she developed the same dysrhythmia after just 2 minutes on the treadmill and had to stop. She was referred to the emergency department and admitted under the assumption that her heart block represents refractory Lyme carditis, she was initiated on IV ceftriaxone. Telemetry overnight was benign, sinus rhythm at 60 to 75 bpm. No pauses, bradycardia, or dysrhythmias. At the time my evaluation this morning, the patient was comfortable, but she was largely at bedrest (walking only to the bathroom). She denied chest pain, dyspnea, palpitations, or lightheadedness. Allergies Allergy/AdvReac Type Severity Reaction Status Date / Time azithromycin [From Zithromax] Allergy Severe Hives Verified 07/30/23 08:10 dihydroergotamine Allergy Severe "THROAT Verified 07/30/23 08:10 SHUTS DOWN" ketorolac Allergy Intermediate HIVES Verified 07/30/23 08:10 Penicillins Allergy Intermediate Hives Verified 07/30/23 08:10 Home Medications Medication Instructions Recorded Confirmed Type ascorbic acid (vitamin C) 500 mg 500 mg PO QAM 11/11/17 10/15/23 History tablet (Vitamin C) conjugated estrogens 0.625 mg/gram 1 applic vaginal 2XWK 11/11/17 10/15/23 History vaginal cream (Premarin) fluticasone propionate 50 1 spray intranasal DAILY PRN 11/11/17 10/15/23 History mcg/actuation nasal Allergy Symptoms spray,suspension (Flonase Allergy Relief) folic acid 400 mcg tablet 400 mcg PO QAM 11/11/17 10/15/23 History lysine 500 mg tablet (L-Lysine) 500 mg PO DAILY PRN Cold Sore(s) 11/11/17 10/15/23 History selenium 200 mcg tablet (SelenoMax) 200 mcg PO QAM PRN illness 11/11/17 10/15/23 History sennosides 8.6 mg-docusate sodium 1 tab PO BID PRN Constipation 11/11/17 10/15/23 History 50 mg tablet (Senna-S) sumatriptan succinate 100 mg 100 mg PO UD PRN Migraine Headache 11/11/17 10/15/23 History tablet (Imitrex) cholecalciferol (vitamin D3) 125 5,000 units PO UD 07/03/18 10/15/23 History mcg (5,000 unit) tablet (Vitamin D3) meperidine (PF) 100 mg/mL 1 ml IM DIRECTED PRN Migraine 07/03/18 10/15/23 History injection solution Headache multivitamin (Multiple Vitamins 1 tab PO QAM 07/03/18 10/15/23 History tablet) ondansetron 4 mg disintegrating 4 mg PO Q6H PRN nausea and 09/07/20 10/15/23 Rx tablet vomiting #20 tabs ibuprofen 800 mg tablet 800 mg PO DIRECTED PRN Pain 09/26/20 10/15/23 History galcanezumab-gnlm 120 mg/mL 120 mg subcut MONTHLY 10/25/22 10/15/23 History subcutaneous syringe (Emgality) docusate sodium 100 mg capsule 100 mg PO BID #60 caps 02/01/23 10/15/23 Rx oxybutynin chloride 5 mg tablet 5 mg PO Q8H PRN bladder spasms #90 02/01/23 10/15/23 Rx tabs pantoprazole 40 mg tablet,delayed 40 mg PO DAILY #30 tabs 02/01/23 10/15/23 Rx release Fish Oil 1 cap PO PM 10/15/23 10/15/23 History albuterol sulfate 90 mcg/actuation 1 puff inhalation DIRECTED PRN 10/15/23 10/15/23 History aerosol inhaler Other alendronate 70 mg tablet 70 mg PO WK 10/15/23 10/15/23 History aspirin 81 mg tablet,delayed 81 mg PO UD 10/15/23 10/15/23 History release (Adult Aspirin Regimen) levothyroxine 25 mcg tablet 25 mcg PO UD 10/15/23 10/15/23 History lorazepam 1 mg tablet 1 mg PO DIRECTED PRN travel 10/15/23 10/15/23 History phenazopyridine 200 mg tablet 200 mg PO Q8H PRN Other 10/15/23 10/15/23 History (Pyridium) tamsulosin 0.4 mg capsule 0.4 mg PO DAILY PRN Other 10/15/23 10/15/23 History valacyclovir 1 gram tablet 1 mg PO DIRECTED PRN Cold Sores 10/15/23 10/15/23 History Patient History Medical History Cardiac 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 a "small" aneurysm, recent incidental finding, to follow w/ [facility] GERD (gastroesophageal reflux disease) Hx of transesophageal echocardiography (JON) for monitoring Calculus of distal right ureter 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 Surgical History Hx of colonoscopy History of dilatation and curettage Hx of laparoscopy Hx of cystoscopy w/ stent Hx of lithotripsy Hx of tonsillectomy H/O bilateral oophorectomy History of hysterectomy Family History Mother Cervical cancer Social History Smoking Status: Never smoker Second Hand Exposure: No; Do You Dip or Chew Tobacco: No; Tobacco Cessation Education Requested by Patient: No Hx Alcohol Use: No Hx Substance Use: No Preferred Language: British Communication Ability: Effective Um Rn Required: No Beliefs That Will Affect Care: None Current Living Situation: Spouse Other Information That Helps Us Care for You: No Feels Safe at Home: Yes Safety Concerns: Feels Safe At This Time Assistive Devices: None Physical Exam Physical Exam: Adult white female in no distress. Afebrile. Normotensive BP. Pulse 76 bpm and regular without ectopy. Respirations 18 unlabored. Skin: no ecchymoses or generalized lesions. HEENT: unremarkable. Neck: JVP at the clavicle at 90 degrees, no carotid bruits. Lungs: clear. Cardiac: regular rhythm, normal S1-2, no murmur. Abdomen: benign. Extremities: no edema, pulses intact. Neurologic: normal affect and conversation, nonfocal. Results & Data Vital Signs (Past 12 Hours) Vital Signs Temp Pulse Pulse Resp BP Pulse Ox O2 Del Method 10/16/23 11:43 97.3 F L 77 18 106/71 95 Room Air 10/16/23 08:27 64 10/16/23 08:25 Room Air 10/16/23 07:44 97.7 F 70 17 112/77 99 Room Air 10/16/23 04:25 98.1 F 67 17 105/70 96 Room Air Laboratory Results Troponin negative. Normal electrolytes, BUN 17, creatinine 0.9. WBC 2.57, normal hemoglobin and platelet counts. Lyme IgG positive, Lyme IgM negative. Anaplasmosis negative. Diagnostic Findings ECG showed sinus rhythm at 70 bpm, right bundle branch block, low voltage. Compared with 01/29/2023 study, no significant change. Chest x-ray unremarkable. Current echocardiogram shows normal right and heart structure and function, mild mitral regurgitation with normal left atrial size, incidentally noted atrial septal aneurysm. Unchanged compared with January 2023 study. PG Care Time/CCT Total # of Minutes Spent Total Time Spent with Patient: Total time spent is greater than 50% in coordination of care (as documented) at patient's floor/unit and/or counseling patient: Coding Level of Care Code 74053 IN/OBS CONSULT LVL 4,60M Diagnoses Exertional dyspnea R06.09 Second degree heart block I44.1 Lyme carditis A69.29 PFO with atrial septal aneurysm Q21.12; I25.3
--- NOTE | 2023-10-16 14:35 | XCELERA ---
[id number]
--- NOTE | 2023-10-16 14:41 | Hospitalist Progress Note ---
Date of Service October 16, 2023 Assessment & Plan (1) Exertional dyspnea: (2) Second degree heart block: Plan 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 Second-degree AV block (2: 1 AV block) History of Lyme disease in April; treated with extended(6 weeks) course of doxy cycline due to persistent symptoms of generalized weakness and fatigue Patient is started to experience exertional dyspnea; underwent stress test and found to have second-degree AV block in outpatient cardiology office and was referred for admission here. Leukopenia with WBC count of 2.57K; absolute neutrophil count of 980 AST, ALT within normal limits Anaplasma and Babesia smear negative Lyme IgG positive, IgM negative Chest x-ray personally reviewed; no acute finding Echocardiogram shows EF of 60 to 65%; mild mitral regurgitation present. Compared to echocardiogram from December 2022; no significant changes seen. Started on IV ceftriaxone for possible Lyme carditis. Awaiting infectious disease input. Continue to monitor on telemetry as recommended by cardiology Leukopeniapatient was found to have leukopenia with ANC of 980. Peripheral smear is pending. Hematology has been consulted. Chronic conditions; HypothyroidismTSH slightly elevated; continue levothyroxine [id number] of 5.4% in December 2022. DVT prophylaxis heparin Time spent evaluating patient, direct bedside care, chart review, placing orders, interpretation of diagnostic studies, discussion with consultants, patient, and family members, as well as other required patient management activities is 50-minute Please note the above document was generated using voice recognition software. It may contain grammatical, syntax or spelling errors. Any formal questions or concerns about the content, text or information contained within the body of this dictation should be directly addressed to the provider for clarification Admission and Anticipated Discharge Date Admission Date: October 15, 2023 Subjective Patient seen and examined at bedside. She is comfortable; not in distress. She still reports shortness of breath on minimal exertion Telemetry shows sinus rhythm; no arrhythmia, pauses seen Review of Systems Review of Systems: All systems reviewed & are unremarkable except as noted in Subjective Physical Exam Physical Exam: GENERAL: Comfortable, pleasant,AO X3; not in any distress SKIN: Normal color, warm HEENT: [place] palpebral conjunctivae, no ptosis, moist buccal mucosa NECK : Supple, no tenderness CHEST : CTA, no tenderness HEART : RRR, no obvious murmurs ABDOMEN: no distention, nontender EXTREMITIES : No LE swelling/tenderness, no other conspicuous deformities noted NEUROLOGIC : Coherent, no facial asymmetry, no other gross focality Results & Data Results & Data Vital Signs (Past 12 Hours) Vital Signs Temp Pulse Pulse Resp BP Pulse Ox O2 Del Method 10/16/23 11:43 36.3 C L 77 18 106/71 95 Room Air 10/16/23 08:27 64 10/16/23 08:25 Room Air 10/16/23 07:44 36.5 C 70 17 112/77 99 Room Air 10/16/23 04:25 36.7 C 67 17 105/70 96 Room Air
[2023-10-16] MEDS: cefTRIAXone SODIUM 2,000 MG/50 ML BAG IV SCH (18:48)
[2023-10-16] MEDS ORDERED: HEPARIN SOD 5,000 UNIT/0.5 ML VIAL SQ SCH (21:00)
[2023-10-16] MEDS ORDERED: NITROGLYCERIN SL 0.4 MG/TAB TAB SL PRN (22:35)
[2023-10-17] MEDS: LEVOTHYROXINE SODIUM 50 MCG TABLET PO SCH (05:51)
[2023-10-17 06:19] LABS: Basophils # (auto) 0.04 K/uL (0.00-0.20); Basophils % (auto) 1.6 %; Eosinophils # (auto) 0.13 K/uL (0.00-0.50); Eosinophils % (auto) 5.3 %; Hematocrit (blood only) 39.1 % (37.0-47.0); Hemoglobin 13.1 g/dl (12.0-16.0); Lymphocytes # (auto) 0.93 K/uL (1.20-3.40); Lymphocytes % (auto) 37.7 %; Mean Corpuscular Hemoglobin 29.2 pg (25.0-34.0); Mean Corpuscular Hgb Conc 33.5 g/dL (32.0-36.0); Mean Corpuscular Volume 87.1 fL (80.0-100.0); Mean Platelet Volume 10.2 fL (9.4-12.4); Monocytes # (auto) 0.34 K/uL (0.11-0.59); Monocytes % (auto) 13.8 %; Neutrophils # (auto) 1.03 K/uL (1.40-6.50); Neutrophils % (auto) 41.6 %; Platelet Count 134 K/uL (130-400); RDW Coefficient of Variation 13.3 % (11.5-14.5); RDW Standard Deviation 42.3 fL (36.4-46.3); Red Blood Count 4.49 M/uL (4.20-5.40); White Blood Count 2.47 K/ul (4.8-10.8)
[2023-10-17 06:34] LABS: BUN Creatinine Ratio 17.7 (10-20); Creatinine Clr Calc Pharmacy 54.5 ml/min; Est GFR (Non-African American) 64.7 ml/min; Potassium 4.2 mmol/L (3.5-5.1)
--- NOTE | 2023-10-17 09:21 | Hospitalist Progress Note ---
Date of Service October 17, 2023 Assessment & Plan (1) Exertional dyspnea: (2) Second degree heart block: Plan 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 Second-degree AV block (2: 1 AV block) History of Lyme disease in April; treated with extended(6 weeks) course of doxy cycline In June due to persistent symptoms of generalized weakness and fatigue Patient is started to experience exertional dyspnea; underwent stress test and found to have second-degree AV block in outpatient cardiology office and was referred for admission here. Leukopenia with neutropenia AST, ALT within normal limits Anaplasma and Babesia smear negative Lyme IgG positive, IgM negative Chest x-ray personally reviewed; no acute finding Echocardiogram shows EF of 60 to 65%; mild mitral regurgitation present. Compared to echocardiogram from December 2022; no significant changes seen. Started on IV ceftriaxone for possible Lyme carditis. Will await official infectious disease input regarding whether the heart block could be related with Lyme carditis or not. Continue to monitor on telemetry as recommended by cardiology Leukopeniapatient was found to have leukopenia with ANC of 980. Peripheral smear is pending. Hematology has been consulted. Chronic conditions; HypothyroidismTSH slightly elevated; continue levothyroxine VcapvqimrcaTiF2r of 5.4% in December 2022. DVT prophylaxis heparin Time spent evaluating patient, direct bedside care, chart review, placing orders, interpretation of diagnostic studies, discussion with consultants, patient, and family members, as well as other required patient management activities is 50-minute Please note the above document was generated using voice recognition software. It may contain grammatical, syntax or spelling errors. Any formal questions or concerns about the content, text or information contained within the body of this dictation should be directly addressed to the provider for clarification Admission and Anticipated Discharge Date Admission Date: October 15, 2023 Subjective Patient seen and examined at bedside. She is comfortable; not in distress. Telemetry shows predominantly sinus rhythm with several minute of of 2:1 or 3: 1 conduction Review of Systems Review of Systems: All systems reviewed & are unremarkable except as noted in Subjective Physical Exam Physical Exam: GENERAL: Comfortable, pleasant,AO X3; not in any distress SKIN: Normal color, warm HEENT: [place] palpebral conjunctivae, no ptosis, moist buccal mucosa NECK : Supple, no tenderness CHEST : CTA, no tenderness HEART : RRR, no obvious murmurs ABDOMEN: no distention, nontender EXTREMITIES : No LE swelling/tenderness, no other conspicuous deformities noted NEUROLOGIC : Coherent, no facial asymmetry, no other gross focality Results & Data Results & Data Vital Signs (Past 12 Hours) Vital Signs Temp Pulse Pulse Resp BP Pulse Ox O2 Del Method 10/17/23 08:15 36.9 C 78 18 124/78 95 Room Air 10/17/23 07:11 63 10/17/23 03:54 36.5 C 63 18 106/72 96 Room Air 10/16/23 23:06 36.4 C L 63 18 132/84 97 Room Air 10/16/23 22:46 71 10/16/23 21:23 O2 Del Method 10/17/23 08:15 10/17/23 07:11 10/17/23 03:54 10/16/23 23:06 10/16/23 22:46 10/16/23 21:23 Room Air
--- NOTE | 2023-10-17 10:29 | Cardiology Progress Note ---
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 She is receiving IV ceftriaxone and there is an infectious disease consultation planned for tomorrow. Rhythm is predominantly sinus and benign, but she still has episodic second- degree AV block which is not clearly symptomatic at rest, but which does markedly decrease her exercise tolerance when it occurs during activity. She also had transient tachycardia, but this was during activity when she regained 1:1 conduction. No indication for pacemaker at this time, since her symptoms are transient and there has not been evidence of complete heart block or sustained dysrhythmia. However, if she ultimately fails to respond to ceftriaxone and her heart block is felt to be more permanent, this may be a consideration. As noted, PFO with atrial septal aneurysm was previously incidentally noted and requires no specific treatment beyond continuing daily aspirin. Will notify Drs. Parker/Phuc's office of the patient's hospitalization so that they may arrange further inpatient/outpatient follow-up. Admission and Anticipated Discharge Date Admission Date: October 15, 2023 Subjective Uneventful night. However, she still feels that her breathing is not quite right, upon inquiry she does not seem to be complaining of true dyspnea but more a sense of her breathing feels somehow different than usual in an ongoing way (not episodic but continuous). She still does note actual dyspnea and some fatigue on exertion, but is able to walk short distances without difficulty. No orthostasis, lightheadedness, subjective palpitations, or presyncope. She also had a transient episode of chest discomfort last evening which did not correlate with any rhythm disturbance (ECG at the time showed sinus rhythm at [address] abnormalities). Telemetry showed predominantly sinus rhythm in the 60-70 bpm range, however there were several minutes yesterday and today of second-degree heart block with 2:1 or 3:1 conduction. When walking, she also had a period of heart block followed by transient sinus tachycardia (initially heart block, became transiently tachycardic to 140 bpm when rhythm abruptly began conducting 1:1). Rhythm has been unremarkable 99% of the monitored time. Aside from her dysphoric breathing sensation (which is mild), no somatic complaints at the time of my evaluation this morning. Physical Exam Physical Exam: No distress. BP normotensive. Pulse 78 bpm and regular. Respirations 18 unlabored. Oxygen saturation 95% on room air. Adult white female in no distress. Skin: no ecchymoses or generalized lesions. HEENT: unremarkable. Neck: JVP at the clavicle at 90 degrees, no carotid bruits. Lungs: clear. Cardiac: regular rhythm, normal S1-2, no murmur. Abdomen: benign. Extremities: no edema, pulses intact. Neurologic: normal affect and conversation, nonfocal. Results & Data Vital Signs (Past 12 Hours) Vital Signs Temp Pulse Pulse Resp BP Pulse Ox O2 Del Method 10/17/23 08:15 98.4 F 78 18 124/78 95 Room Air 10/17/23 07:11 63 10/17/23 03:54 97.7 F 63 18 106/72 96 Room Air 10/16/23 23:06 97.5 F L 63 18 132/84 97 Room Air 10/16/23 22:46 71 Laboratory Results WBC 2.47, hemoglobin 13.1. Normal electrolytes, BUN 17, creatinine 0.96. Diagnostic Findings ECG during transient chest discomfort last evening showed sinus rhythm at 63 bpm with incomplete right bundle branch block, compared with prior study no change. PG Care Time/CCT Total # of Minutes Spent Total Time Spent with Patient: Total time spent is greater than 50% in coordination of care (as documented) at patient's floor/unit and/or counseling patient: Coding Level of Care Code 09893 SUB INP/OBS CARE 3/50MIN Diagnoses Exertional dyspnea R06.09 Second degree heart block I44.1 Lyme carditis A69.29 PFO with atrial septal aneurysm Q21.12; I25.3
--- NOTE | 2023-10-17 11:59 | Electrocardiogram Report ---
Test Reason : Blood Pressure : */* mmHG Vent. Rate : 63 BPM Atrial Rate : 63 BPM P-R Int : 178 ms QRS Dur : 120 ms QT Int : 444 ms P-R-T Axes : 49 2 42 degrees QTcB Int : 454 ms Normal sinus rhythm Low voltage QRS Right bundle branch block Borderline ECG When compared with ECG of 15-Oct-2023 17:03, No significant change was found Confirmed by Pardeep Martinez ([id number]) on 10/17/2023 11:58:29 AM Referred By: REFERRED SELF Confirmed By: Pardeep Martinez
[2023-10-18 06:15] LABS: Basophils # (auto) 0.04 K/uL (0.00-0.20); Basophils % (auto) 1.4 %; Eosinophils # (auto) 0.15 K/uL (0.00-0.50); Eosinophils % (auto) 5.1 %; Hematocrit (blood only) 40.6 % (37.0-47.0); Hemoglobin 13.9 g/dl (12.0-16.0); Immature Granulocytes # (auto) 0.01 K/uL (0.01-0.20); Immature Granulocytes % (auto) 0.3 %; Lymphocytes # (auto) 1.12 K/uL (1.20-3.40); Lymphocytes % (auto) 38.1 %; Mean Corpuscular Hemoglobin 29.3 pg (25.0-34.0); Mean Corpuscular Hgb Conc 34.2 g/dL (32.0-36.0); Mean Corpuscular Volume 85.7 fL (80.0-100.0); Mean Platelet Volume 10.3 fL (9.4-12.4); Monocytes # (auto) 0.36 K/uL (0.11-0.59); Monocytes % (auto) 12.2 %; Neutrophils # (auto) 1.26 K/uL (1.40-6.50); Neutrophils % (auto) 42.9 %; Platelet Count 162 K/uL (130-400); RDW Coefficient of Variation 13.3 % (11.5-14.5); RDW Standard Deviation 41.8 fL (36.4-46.3); Red Blood Count 4.74 M/uL (4.20-5.40); White Blood Count 2.94 K/ul (4.8-10.8)
[2023-10-18 06:33] LABS: Anion Gap 6 (3-11); BUN Creatinine Ratio 19.2 (10-20); Blood Urea Nitrogen 19 mg/dl (6-23); Calcium 9.2 mg/dl (8.6-10.3); Carbon Dioxide 28 mmol/L (21-32); Chloride 103 mmol/L (98-107); Creatinine Clr Calc Pharmacy 57.8 ml/min; Est GFR (African American) 72.3 ml/min; Est GFR (Non-African American) 62.4 ml/min; Glucose 116 mg/dl (70-99(Fasting)); Sodium 137 mmol/L (136-145)
--- NOTE | 2023-10-18 09:00 | Cardiology Progress Note ---
Date of Service October 18, 2023 Assessment & Plan (1) Second degree heart block: (2) Lyme carditis: (3) Exertional dyspnea: Plan Ms. Bo continues to have intermittent second degree heart block on the monitor. ID note reviewed. I will discuss next steps with [facility] who saw patient just before her admission. I wonder if some of her dyspnea at rest is a remnant of her recent COVID infection and pulmonary in etiology. She says she feels best when she is walking slowly but then feels worse as soon as she exhibits more effort which coincides with going into 2:1 AV block at higher heart rates as demonstrated on her stress test last week. Her echo was unchanged from previous. Admission and Anticipated Discharge Date Admission Date: October 15, 2023 Subjective Ms. Bo feels about the same today. She is sob frequently even with rest. She notes that when she walks very slowly she feels the least sob. If she picks up the pace she gets very winded. Review of Systems Review of Systems: All systems reviewed & are unremarkable except as noted in HPI & below Physical Exam Constitutional: WD/WN, vitals as above Respiratory: normal respiratory effort, lungs clear to auscultation Cardiovascular: RRR, no murmur, no edema Skin: no rashes, warm and dry Neurologic: moves all extremities and awake Psychiatric: A+Ox3, euthymic affect Results & Data Vital Signs (Past 12 Hours) Vital Signs Temp Pulse Pulse Resp BP Pulse Ox O2 Del Method 10/18/23 07:47 36.9 C 82 19 109/77 97 Room Air 10/18/23 02:55 36.7 C 73 16 106/68 96 Room Air 10/17/23 23:51 91 H 10/17/23 23:37 36.7 C 76 18 113/72 96 Room Air
--- NOTE | 2023-10-18 13:51 | Hospitalist Progress Note ---
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 Leukopenia with neutropenia AST, ALT within normal limits Anaplasma and Babesia smear negative Lyme IgG positive, IgM negative Chest x-ray personally reviewed; no acute finding Echocardiogram shows EF of 60 to 65%; mild mitral regurgitation present. Compared to echocardiogram from December 2022; no significant changes seen. Started on IV ceftriaxone for possible Lyme carditis. Will await official infectious disease input . Continue to monitor on telemetry as recommended by cardiology LeukopeniaPatient has found to have leukopenia with neutropenia. Peripheral smear did not show any atypical lymphocytes or small cells. Hematology was consulted on admission. Chronic conditions; HypothyroidismTSH slightly elevated; continue levothyroxine [id number] of 5.4% in December 2022. DVT prophylaxis ambulation, SCDs Time spent evaluating patient, direct bedside care, chart review, placing orders, interpretation of diagnostic studies, discussion with consultants, patient, and family members, as well as other required patient management activities is 50-minute Please note the above document was generated using voice recognition software. It may contain grammatical, syntax or spelling errors. Any formal questions or concerns about the content, text or information contained within the body of this dictation should be directly addressed to the provider for clarification Admission and Anticipated Discharge Date Admission Date: October 15, 2023 Subjective Patient seen and examined at bedside. She continues to be short of breath on minimal exertion Vital signs are stable; no pauses on telemetry No significant events overnight Review of Systems Review of Systems: All systems reviewed & are unremarkable except as noted in Subjective Physical Exam Physical Exam: GENERAL: Comfortable, pleasant,AO X3; not in any distress SKIN: Normal color, warm HEENT: [place] palpebral conjunctivae, no ptosis, moist buccal mucosa NECK : Supple, no tenderness CHEST : CTA, no tenderness HEART : RRR, no obvious murmurs ABDOMEN: no distention, nontender EXTREMITIES : No LE swelling/tenderness, no other conspicuous deformities noted NEUROLOGIC : Coherent, no facial asymmetry, no other gross focality Results & Data Results & Data Vital Signs (Past 12 Hours) Vital Signs Temp Pulse Resp BP Pulse Ox O2 Del Method 10/18/23 11:38 36.5 C 75 21 115/82 97 Room Air 10/18/23 07:47 36.9 C 82 19 109/77 97 Room Air 10/18/23 07:30 Room Air 10/18/23 02:55 36.7 C 73 16 106/68 96 Room Air
--- NOTE | 2023-10-18 15:04 | Infectious Disease Consult ---
Date of Service October 18, 2023 Telehealth Information I performed this visit using a real-time telehealth connection between my location and the patients location ([facility]). After connecting through interactive tele-video, patient was identified by name and date of and/or wristband check.Patient (or authorized healthcare safety representative) was informed that this was a telemedicine visit and it was being conducted confidentially over secure lines. My office door was closed and no o ne else was present in the room with me.Patient (or authorized healthcare safety representative) provided consent to proceed with the visit, expressed an understanding of privacy and security of the telemedicine visit, and gave permission to have a hospital safety representative in the room in order to assist with the visit and to conduct portions of the visit, as needed. I informed the patient (or authorized healthcare safety representative) that I reviewed their record and presented the opportunity for them to ask any questions regarding the visit today. The patient agreed to participate. Assessment & Plan (1) Second degree heart block: Plan: I am not opposed to treating as Lyme carditis but I would caution that the patient has already received more than adequate duration of therapy for same - is there another etiology? Ceftriaxone x 14-21d is not incorrect, however consider the following from the 2020 [employer] Lyme guidelines with re: to ceftriaxone vs doxycycline: "...there is greater potential toxicity associated with IV therapy, particularly with prolonged courses, and IV antibiotics have not been shown to be superior to oral antibiotics in the treatment of Lyme carditis. Thus, patients initially treated with IV antibiotics should be converted to oral therapy to complete their treatment course once they begin to improve..." History of Present Illness History of Present Illness The patient has been complaining of dyspnea x weeks and was found to have heart block that is being attributed to Lyme Disease. Allergies Allergy/AdvReac Type Severity Reaction Status Date / Time azithromycin [From Zithromax] Allergy Severe Hives Verified 07/30/23 08:10 dihydroergotamine Allergy Severe "THROAT Verified 07/30/23 08:10 SHUTS DOWN" ketorolac Allergy Intermediate HIVES Verified 07/30/23 08:10 Penicillins Allergy Intermediate Hives Verified 07/30/23 08:10 Home Medications Medication Instructions Recorded Confirmed Type ascorbic acid (vitamin C) 500 mg 500 mg PO QAM 11/11/17 10/15/23 History tablet (Vitamin C) conjugated estrogens 0.625 mg/gram 1 applic vaginal 2XWK 11/11/17 10/15/23 History vaginal cream (Premarin) fluticasone propionate 50 1 spray intranasal DAILY PRN 11/11/17 10/15/23 History mcg/actuation nasal Allergy Symptoms spray,suspension (Flonase Allergy Relief) folic acid 400 mcg tablet 400 mcg PO QAM 11/11/17 10/15/23 History lysine 500 mg tablet (L-Lysine) 500 mg PO DAILY PRN Cold Sore(s) 11/11/17 10/15/23 History selenium 200 mcg tablet (SelenoMax) 200 mcg PO QAM PRN illness 11/11/17 10/15/23 History sennosides 8.6 mg-docusate sodium 1 tab PO BID PRN Constipation 11/11/17 10/15/23 History 50 mg tablet (Senna-S) sumatriptan succinate 100 mg 100 mg PO UD PRN Migraine Headache 11/11/17 10/15/23 History tablet (Imitrex) cholecalciferol (vitamin D3) 125 5,000 units PO UD 07/03/18 10/15/23 History mcg (5,000 unit) tablet (Vitamin D3) meperidine (PF) 100 mg/mL 1 ml IM DIRECTED PRN Migraine 07/03/18 10/15/23 History injection solution Headache multivitamin (Multiple Vitamins 1 tab PO QAM 07/03/18 10/15/23 History tablet) ondansetron 4 mg disintegrating 4 mg PO Q6H PRN nausea and 09/07/20 10/15/23 Rx tablet vomiting #20 tabs ibuprofen 800 mg tablet 800 mg PO DIRECTED PRN Pain 09/26/20 10/15/23 History galcanezumab-gnlm 120 mg/mL 120 mg subcut MONTHLY 10/25/22 10/15/23 History subcutaneous syringe (Emgality) docusate sodium 100 mg capsule 100 mg PO BID #60 caps 02/01/23 10/15/23 Rx oxybutynin chloride 5 mg tablet 5 mg PO Q8H PRN bladder spasms #90 02/01/23 10/15/23 Rx tabs pantoprazole 40 mg tablet,delayed 40 mg PO DAILY #30 tabs 02/01/23 10/15/23 Rx release Fish Oil 1 cap PO PM 10/15/23 10/15/23 History albuterol sulfate 90 mcg/actuation 1 puff inhalation DIRECTED PRN 10/15/23 10/15/23 History aerosol inhaler Other alendronate 70 mg tablet 70 mg PO WK 10/15/23 10/15/23 History aspirin 81 mg tablet,delayed 81 mg PO UD 10/15/23 10/15/23 History release (Adult Aspirin Regimen) levothyroxine 25 mcg tablet 25 mcg PO UD 10/15/23 10/15/23 History lorazepam 1 mg tablet 1 mg PO DIRECTED PRN travel 10/15/23 10/15/23 History phenazopyridine 200 mg tablet 200 mg PO Q8H PRN Other 10/15/23 10/15/23 History (Pyridium) tamsulosin 0.4 mg capsule 0.4 mg PO DAILY PRN Other 10/15/23 10/15/23 History valacyclovir 1 gram tablet 1 mg PO DIRECTED PRN Cold Sores 10/15/23 10/15/23 History Patient History Medical History Cardiac 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 a "small" aneurysm, recent incidental finding, to follow w/ Hyun Curry [facility] GERD (gastroesophageal reflux disease) Hx of transesophageal echocardiography (JON) for monitoring Calculus of distal right ureter 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 Surgical History Hx of colonoscopy History of dilatation and curettage Hx of laparoscopy Hx of cystoscopy w/ stent Hx of lithotripsy Hx of tonsillectomy H/O bilateral oophorectomy History of hysterectomy Family History Mother Cervical cancer Social History Smoking Status: Never smoker Second Hand Exposure: No; Do You Dip or Chew Tobacco: No; Tobacco Cessation Education Requested by Patient: No Hx Alcohol Use: No Hx Substance Use: No Preferred Language: Iranian Communication Ability: Effective Pleater Required: No Beliefs That Will Affect Care: None Current Living Situation: Spouse Other Information That Helps Us Care for You: No Feels Safe at Home: Yes Safety Concerns: Feels Safe At This Time Assistive Devices: None Review of Systems As per the HPI, otherwise negative Physical Exam Vitals: see EMR Exam limited due to constraints of telemedicine Gen/Constitutional: appears at stated age, NAD, nontoxic Head: AT, NC Eyes: sclera anicteric, no conjunctival injection ENT: MMM, trachea midline Card: appears to be well-perfused Resp: not tachypneic, nml effort, symmetric chest rise, no accessory muscle use Derm: no visible diaphoresis, no visible rash, no visible jaundice Results & Data Vital Signs (Past 12 Hours) Vital Signs Temp Pulse Resp BP Pulse Ox O2 Del Method 10/18/23 11:38 36.5 C 75 21 115/82 97 Room Air 10/18/23 07:47 36.9 C 82 19 109/77 97 Room Air 10/18/23 07:30 Room Air Laboratory Results SEE EMR Diagnostic Findings SEE EMR
--- NOTE | 2023-10-18 17:08 | Oncology Consultation ---
Date of Consultation October 18, 2023 Assessment & Plan (1) Leukopenia: Plan -Had an extensive discussion with patient and her . Chronicity of leukopenia since 1997 as well as lack of other cytopenias indicates a benign etiology. 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 However, may consider obtaining a bone marrow biopsy to rule out underlying hematologic malignancy. Following extensive discussion, patient indicated that she would like to proceed with bone marrow biopsy with sedation. Since she is going to be discharged home tomorrow, will check to see if bone marrow biopsy can be obtained prior to discharge. If this is not possible, will plan to obtain as an outpatient with sedation. -Will check nutritional labs including B12 and folate levels to rule out nutritional causes as well. Thank you for this consult. Hematology will come see patient upon discharge from hospital. Please feel free to call if you have any further questions. History of Present Illness Reason for Consultation: leukopenia, hx smudge cells on outpx testing Attending Physician: Tonio Espitia MD History of Present Illness 58-year-old female with history of chronic leukopenia/neutropenia admitted [facility] 10/15/2023 due to abnormal stress test which showed intermittent second-degree AV block. Due to concern for possible Lyme carditis, was advised to present to the ER. Of note, she has had recent history of Lyme's disease for which she had completed course of doxycycline. She is currently on IV ceftriaxone. Per patient, was initially found to be leukopenic/neutropenic in 1997 for which she was initially evaluated by Dr. Jung and more recently evaluated by Dr. Buchanan in 2019. States that recent outpatient labs revealed smudge cells on peripheral smear review. CBC since admission has shown leukopenia with white cell count between 2.4-3.05 and ANC ranging from 0.98-1.26. Smear review by pathology obtained during this admission negative for smudge cells or other abnormality To suggest underlying hematologic malignancy. Allergies Allergy/AdvReac Type Severity Reaction Status Date / Time azithromycin [From Zithromax] Allergy Severe Hives Verified 07/30/23 08:10 dihydroergotamine Allergy Severe "THROAT Verified 07/30/23 08:10 SHUTS DOWN" ketorolac Allergy Intermediate HIVES Verified 07/30/23 08:10 Penicillins Allergy Intermediate Hives Verified 07/30/23 08:10 Home Medications Medication Instructions Recorded Confirmed Type ascorbic acid (vitamin C) 500 mg 500 mg PO QAM 11/11/17 10/15/23 History tablet (Vitamin C) conjugated estrogens 0.625 mg/gram 1 applic vaginal 2XWK 11/11/17 10/15/23 History vaginal cream (Premarin) fluticasone propionate 50 1 spray intranasal DAILY PRN 11/11/17 10/15/23 History mcg/actuation nasal Allergy Symptoms spray,suspension (Flonase Allergy Relief) folic acid 400 mcg tablet 400 mcg PO QAM 11/11/17 10/15/23 History lysine 500 mg tablet (L-Lysine) 500 mg PO DAILY PRN Cold Sore(s) 11/11/17 10/15/23 History selenium 200 mcg tablet (SelenoMax) 200 mcg PO QAM PRN illness 11/11/17 10/15/23 History sennosides 8.6 mg-docusate sodium 1 tab PO BID PRN Constipation 11/11/17 10/15/23 History 50 mg tablet (Senna-S) sumatriptan succinate 100 mg 100 mg PO UD PRN Migraine Headache 11/11/17 10/15/23 History tablet (Imitrex) cholecalciferol (vitamin D3) 125 5,000 units PO UD 07/03/18 10/15/23 History mcg (5,000 unit) tablet (Vitamin D3) meperidine (PF) 100 mg/mL 1 ml IM DIRECTED PRN Migraine 07/03/18 10/15/23 History injection solution Headache multivitamin (Multiple Vitamins 1 tab PO QAM 07/03/18 10/15/23 History tablet) ondansetron 4 mg disintegrating 4 mg PO Q6H PRN nausea and 09/07/20 10/15/23 Rx tablet vomiting #20 tabs ibuprofen 800 mg tablet 800 mg PO DIRECTED PRN Pain 09/26/20 10/15/23 History galcanezumab-gnlm 120 mg/mL 120 mg subcut MONTHLY 10/25/22 10/15/23 History subcutaneous syringe (Emgality) docusate sodium 100 mg capsule 100 mg PO BID #60 caps 02/01/23 10/15/23 Rx oxybutynin chloride 5 mg tablet 5 mg PO Q8H PRN bladder spasms #90 02/01/23 10/15/23 Rx tabs pantoprazole 40 mg tablet,delayed 40 mg PO DAILY #30 tabs 02/01/23 10/15/23 Rx release Fish Oil 1 cap PO PM 10/15/23 10/15/23 History albuterol sulfate 90 mcg/actuation 1 puff inhalation DIRECTED PRN 10/15/23 10/15/23 History aerosol inhaler Other alendronate 70 mg tablet 70 mg PO WK 10/15/23 10/15/23 History aspirin 81 mg tablet,delayed 81 mg PO UD 10/15/23 10/15/23 History release (Adult Aspirin Regimen) levothyroxine 25 mcg tablet 25 mcg PO UD 10/15/23 10/15/23 History lorazepam 1 mg tablet 1 mg PO DIRECTED PRN travel 10/15/23 10/15/23 History phenazopyridine 200 mg tablet 200 mg PO Q8H PRN Other 10/15/23 10/15/23 History (Pyridium) tamsulosin 0.4 mg capsule 0.4 mg PO DAILY PRN Other 10/15/23 10/15/23 History valacyclovir 1 gram tablet 1 mg PO DIRECTED PRN Cold Sores 10/15/23 10/15/23 History Patient History Medical History Cardiac 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 a "small" aneurysm, recent incidental finding, to follow w/ Hyun [address], [facility] GERD (gastroesophageal reflux disease) Hx of transesophageal echocardiography (JON) for monitoring Calculus of distal right ureter 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 Surgical History Hx of colonoscopy History of dilatation and curettage Hx of laparoscopy Hx of cystoscopy w/ stent Hx of lithotripsy Hx of tonsillectomy H/O bilateral oophorectomy History of hysterectomy Family History Mother Cervical cancer Social History Smoking Status: Never smoker Second Hand Exposure: No; Do You Dip or Chew Tobacco: No; Tobacco Cessation Education Requested by Patient: No Hx Alcohol Use: No Hx Substance Use: No Preferred Language: Stateless Communication Ability: Effective Fixed Wing Aircraft Flight Mechanic Required: No Beliefs That Will Affect Care: None Current Living Situation: Spouse Other Information That Helps Us Care for You: No Feels Safe at Home: Yes Safety Concerns: Feels Safe At This Time Assistive Devices: None Results & Data Vital Signs (Past 12 Hours) Vital Signs Temp Pulse Resp BP Pulse Ox O2 Del Method 10/18/23 15:43 36.7 C 69 22 124/86 96 Room Air 10/18/23 11:38 36.5 C 75 21 115/82 97 Room Air 10/18/23 07:47 36.9 C 82 19 109/77 97 Room Air 10/18/23 07:30 Room Air (1) Leukopenia Leukopenia type: unspecified Qualified Code(s): D72.819 - Decreased white blood cell count, unspecified
[2023-10-18 19:25] LABS: Folate (Folic Acid),Ser orPlas 6.08 ng/ml (>5.38)
[2023-10-18 19:55] VITALS: RESP 16
--- NOTE | 2023-10-19 09:15 | Cardiology Progress Note ---
Date of Service October 19, 2023 Assessment & Plan (1) Second degree heart block: (2) Lyme carditis: (3) Exertional dyspnea: Plan Ms. Bo continues to have intermittent second degree heart block on the monitor, though over the last 24 hours it was brief and associated with bursts of exertion. She is to have a bone marrow biopsy under conscious sedation and may proceed from a cardiac perspective. Some of her at-rest dyspnea may be a remnant of her recent COVID infection and pulmonary in etiology. Her echo was unchanged from previous. Ceftriaxone continues for treatment of tertiary Lyme. Once this is set up for outpatient administration, she is ok for discharge as far as her cardiac work up goes. We will have close follow up for her in the clinic. Admission and Anticipated Discharge Date Admission Date: October 15, 2023 Atilio Cross has been walking the halls and feels pretty good doing so. She did have two episodes of heart block on the monitor at midnight and 1:30 am. She was tachycardic in sinus tach into the 120s and then switched to a second degree heart block, which has been her pattern thus far. She did note dizziness at this time as she had hopped out of bed to plug in a device and had to sit back down to catch her breath. Review of Systems Review of Systems: All systems reviewed & are unremarkable except as noted in HPI & below Physical Exam Constitutional: WD/WN, vitals as above Respiratory: normal respiratory effort, lungs clear to auscultation Cardiovascular: RRR, no murmur, no edema Skin: no rashes, warm and dry Neurologic: moves all extremities and awake Psychiatric: A+Ox3, euthymic affect Results & Data Vital Signs (Past 12 Hours) Vital Signs Temp Pulse Pulse Resp BP BP Pulse Ox 10/19/23 07:28 36.5 C 81 16 120/77 96 10/19/23 07:21 10/19/23 02:45 36.6 C 67 16 127/87 97 10/18/23 23:00 36.5 C 71 16 116/74 94 10/18/23 21:42 70 O2 Del Method 10/19/23 07:28 Room Air 10/19/23 07:21 Room Air 10/19/23 02:45 Room Air 10/18/23 23:00 Room Air 10/18/23 21:42
[2023-10-19] MEDS: LORazepam 1 MG in SYRINGE 0.5 ML IV STA (09:30)
[2023-10-19] MEDS: ACETAMINOPHEN 1000 MG/100 ML IV IV ONE (09:35)
[2023-10-19] MEDS: fentaNYL citrate PF 100 MCG/2 ML VIAL ONE (10:42)
[2023-10-19 10:44] VITALS: BP 110/73; PULSE 71; TEMP 98.2; O2SAT 98
[2023-10-19 11:42] LABS: Basophils # (auto) 0.05 K/uL (0.00-0.20); Basophils % (auto) 1.9 %; Eosinophils # (auto) 0.14 K/uL (0.00-0.50); Eosinophils % (auto) 5.2 %; Hemoglobin 13.4 g/dl (12.0-16.0); Immature Granulocytes # (auto) 0.01 K/uL (0.01-0.20); Immature Granulocytes % (auto) 0.4 %; Lymphocytes # (auto) 0.89 K/uL (1.20-3.40); Mean Corpuscular Hemoglobin 29.1 pg (25.0-34.0); Mean Corpuscular Hgb Conc 33.5 g/dL (32.0-36.0); Mean Platelet Volume 10.3 fL (9.4-12.4); Monocytes # (auto) 0.38 K/uL (0.11-0.59); Monocytes % (auto) 14.1 %; Neutrophils # (auto) 1.23 K/uL (1.40-6.50); Neutrophils % (auto) 45.4 %; Platelet Count 142 K/uL (130-400); RDW Coefficient of Variation 13.6 % (11.5-14.5); RDW Standard Deviation 42.7 fL (36.4-46.3)
--- NOTE | 2023-10-19 12:28 | Discharge Summary ---
Date of Service October 19, 2023 Admission HPI Per Admitting Provider History obtained from patient, family, and records. Medical history significant for valvular heart disease (mild MR/TR, TTE 2022), PFO, hyperlipidemia, prediabetes, hypothyroidism, Lyme disease status post Rx, migraine, urolithiasis. Last confinement December 2022 for strokelike symptoms attributed to viral labyrinthitis. Patient has not been well since Jun, 2023 following tick bite. Head fullness, joint achiness with exertional SOB. Abnormal outpatient Lyme screen (positive IgM and IgG). Minimal symptom response to extended doxycycline course. Last month, patient noted headache and congestion symptoms. Outpatient COVID-19 test was positive. Patient completed Paxlovid course. Patient seen at PCP's office 3 weeks ago for evaluation given worsening symptoms. Normal D-dimer. Leukopenia of 2.67 with moderate amount of smudge cells on outpatient CBC. Outpatient Hematology consult contemplated. Patient gifted patient with a smart watch last week. Abnormal rhythm picked up by smart watch a few days later coinciding with patient's symptoms. Heart rate noted to be 40. 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 Specialist recommended event monitor. Yesterday morning, patient felt short of breath coming out of the bathroom to go back to bed. Documented first-degree heart block on event monitor according to low voltage technician who called her yesterday morning. Windows Migration Technician recommended a treadmill test to evaluate chronotropic incompetence. Patient had immediate second-degree AV block with symptoms while walking on the treadmill and had to stop. Specialist recommended outpatient Lyme testing to check for active Lyme disease possibly causing conduction issues. Patient brought to ER by today due to worsening exertional SOB symptoms. No headache, no chest pain, no abdominal pain, no cough symptoms. IV ceftriaxone administered at the ER following advice of outpatient cardiology provider. 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 Admission Exam Per Admitting Provider GENERAL: Comfortable, pleasant, slightly anxious, no respiratory distress SKIN: Normal color, warm HEENT: [place] palpebral conjunctivae, no ptosis, moist buccal mucosa NECK : Supple, no tenderness CHEST : CTA, no tenderness HEART : RRR, no obvious murmurs ABDOMEN: no distention, nontender EXTREMITIES : No LE swelling/tenderness, no other conspicuous deformities noted NEUROLOGIC : Coherent, no facial asymmetry, no other gross focality Principal Diagnosis 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 Second-degree heart block Discharge Exam GENERAL: Comfortable, pleasant,AO X3; not in any distress SKIN: Normal color, warm HEENT: [place] palpebral conjunctivae, no ptosis, moist buccal mucosa NECK : Supple, no tenderness CHEST : CTA, no tenderness HEART : RRR, no obvious murmurs ABDOMEN: no distention, nontender EXTREMITIES : No LE swelling/tenderness, no other conspicuous deformities noted NEUROLOGIC : Coherent, no facial asymmetry, no other gross focality Discharge Data Allergies Allergy/AdvReac Type Severity Reaction Status Date / Time azithromycin [From Zithromax] Allergy Severe Hives Verified 07/30/23 08:10 dihydroergotamine Allergy Severe "THROAT Verified 07/30/23 08:10 SHUTS DOWN" ketorolac Allergy Intermediate HIVES Verified 07/30/23 08:10 Penicillins Allergy Intermediate Hives Verified 07/30/23 08:10 Consultations 10/15/23 18:29 ED Decision to Admit Stat 10/15/23 21:48 Consult Cardiology Routine Consult Hematology Routine Consult Infectious Diseases Routine Ordered Studies 10/19/23 09:15 IR bone marrow bx & asp Routine Hospital Course (1) Exertional dyspnea: (2) Second degree heart block: Plan History of Lyme disease in April; treated with extended(6 weeks) course of doxycycline In June due to persistent symptoms of generalized weakness and fatigue Patient is started to experience exertional dyspnea; underwent stress test and found to have second-degree AV block in outpatient cardiology office and was referred for admission here. Lyme IgG positive, IgM negative, on admission Patient was admitted to telemetry floor. Cardiology was consulted for comanagement. Patient underwent echocardiogram which showed normal EF; no significant change was seen compared to her echocardiogram from December 2022. Patient was started on IV ceftriaxone for possible Lyme carditis resulting in the heart block. Infectious disease was consulted for comanagement as well. Discussion once done with patient regarding further plan; decision was made to place her on IV ceftriaxone for 3 weeks to see if her A-V block results with the treatment. We discussed about the possible risks of infection with C. difficile; patient verbalized understanding and and will monitor for diarrhea at home. Patient had ultrasound-guided peripheral IV line placed; patient to receive antibiotics at home and come to hospital for dressing changes and lab work. CBC, CMP to be drawn weekly while patient is on the treatment; lab work to be reviewed by her PCP. Patient was also found to have leukopenia. Hematology was consulted and patient underwent bone marrow biopsy on the day of the discharge. Patient to follow-up with hematology discuss the results. Patient was started on vitamin B12 supplem ent after her vitamin B12 levels were found to be borderline. Please note the above document was generated using voice recognition software. It may contain grammatical, syntax or spelling errors. 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 You are prescribed ceftriaxone 2 g IV daily till November 03 to complete 3-week course for possible Lyme carditis. He will need CBC, CMP every Wednesday. Please take probiotic while you are on the antibiotics. You are prescribed vitamin B12 tablets as your vitamin B12 was found to be on the lower side. Please follow-up with hematology after discharge to discuss about results of bone marrow biopsy. Pending Studies at Discharge: Yes (Anaplasma PCR, babesiosis PCR, Q fever, Rickettsia and typhus) Stand-Alone Forms: My [employer], Smoking Cessation Medications and DC Order Prescriptions: New cyanocobalamin (vitamin B-12) 500 mcg Tablet 1,000 mcg PO QAM Qty: 60 0RF Advanced Probiotic 625 mg (10 billion cell) Capsule 2 cap PO DAILY Qty: 60 0RF Continued cholecalciferol (vitamin D3) [Vitamin D3] 5,000 unit Tablet 5,000 units PO UD Rx Instructions: on hold. doesnt use during summer multivitamin [Multiple Vitamins] Tablet 1 tab PO QAM meperidine (PF) 100 mg/mL solution 1 ml IM DIRECTED PRN (Reason: Migraine Headache) Rx Instructions: ONE TIME DOSE sumatriptan succinate [Imitrex] 100 mg tablet 100 mg PO UD PRN (Reason: Migraine Headache) Rx Instructions: TAKE ONE TABLET AT ONSET OF MIGRAINE , MAY REPEAT IN 2 HOURS IF NEEDED. TAKE NO MORE THAN 2 TABLETS IN 24 HOURS. sennosides-docusate sodium [Senna-S] 8.6-50 mg Tablet 1 tab PO BID PRN (Reason: Constipation) folic acid 400 mcg Tablet 400 mcg PO QAM selenium [SelenoMax] 200 mcg Tablet 200 mcg PO QAM PRN (Reason: illness) ascorbic acid (vitamin C) [Vitamin C] 500 mg Tablet 500 mg PO QAM Premarin 0.625 mg/gram Cream 1 applic Vaginal 2XWK Rx Instructions: DIRECTED AT BEDTIME EVERY WEDNESDAY AND WEDNESDAY lysine [L-Lysine] 500 mg Tablet 500 mg PO DAILY PRN (Reason: Cold Sore(s)) fluticasone propionate [Flonase Allergy Relief] 50 mcg/actuation [place],Suspension 1 spray INTRANASAL DAILY PRN (Reason: Allergy Symptoms) pantoprazole 40 mg tablet,delayed release (DR/EC) 40 mg PO DAILY Qty: 30 0RF docusate sodium 100 mg capsule 100 mg PO BID Qty: 60 0RF oxybutynin chloride 5 mg tablet 5 mg PO Q8H PRN (Reason: bladder spasms) Qty: 90 0RF ondansetron 4 mg tablet,disintegrating 4 mg PO Q6H PRN (Reason: nausea and vomiting) Qty: 20 0RF ibuprofen 800 mg Tablet 800 mg PO DIRECTED PRN (Reason: Pain) Emgality Syringe 120 mg/mL syringe 120 mg SUBCUT MONTHLY Rx Instructions: on hold for september valacyclovir 1 gram tablet 1 mg PO DIRECTED PRN (Reason: Cold Sores) alendronate 70 mg tablet 70 mg PO WK levothyroxine 25 mcg tablet 25 mcg PO UD Rx Instructions: two tablets on wednesday, one tab rest of days lorazepam 1 mg tablet 1 mg PO DIRECTED PRN (Reason: travel) albuterol sulfate 90 mcg/actuation HFA aerosol inhaler 1 puff INHALATION DIRECTED PRN (Reason: Other) Fish Oil 1 cap PO PM phenazopyridine [Pyridium] 200 mg tablet 200 mg PO Q8H PRN (Reason: Other) aspirin [Adult Aspirin Regimen] 81 mg tablet,delayed release (DR/EC) 81 mg PO UD Rx Instructions: on hold tamsulosin 0.4 mg capsule 0.4 mg PO DAILY PRN (Reason: Other) Admission Data Admit Date/Time: 10/15/23 19:58 Attending Provider: Tonio Espitia Admit Provider: Valerio Hickey Primary Care Provider: Salvador Pike Other Providers: Clifford Brady; Poncho Loyd; Devi Samano; Tony Ho I.; Hipolito Avila II; Mary Dash; Enrique Brady; Jose Miguel Grissom; Khushboo Wolf; Pardeep Martinez; Emma Younger
[2023-10-19 12:31] LABS: Bone Marrow Smear SLHOLD
[2023-10-19] MEDS: CYANOCOBALAMIN (B-12) 500 MCG TABLET PO SCH (12:34)
[2023-10-19] MEDS ORDERED: Nursing to Pharmacy Communication SCH (12:45)
--- NOTE | 2023-10-19 13:48 | CT Scan Report ---
CT-GUIDED BONE MARROW BIOPSY CLINICAL HISTORY: Leukopenia PROCEDURE: Procedure and risks were explained. Informed consent was obtained. A final timeout was com pleted. The patient was placed prone on the CT exam table. The left gluteal region was prepped and dr aped in sterile fashion. 1% lidocaine was utilized for skin anesthesia. The patient received 1 g Tyle nol and 25 mcg fentanyl IV. Utilizing CT guidance, an 11-gauge bone biopsy needle was advanced into the left iliac bone. Multiple aspirates and one bone core was obtained and given to the lab for review. The needle was removed and Band-Aid applied. The patient tolerated the procedure well. Vital signs will be monitored on the quirino or. IMPRESSION: Bone marrow biopsy as above. Performed, dictated, and signed by Barrington Batista PA-C; to be co-signed by Dr. Adi Cantrell. Electronically signed by: Adi Cantrell M.D. 10/19/2023 2:30 PM
[2023-10-21 16:10] LABS: Ehrlichia chaff DNA Bld Negative (Negative)
[2023-11-03 20:58] LABS: Babesia microti DNA Not Detected (Not Detected); Q Fever IgG, Phase I NEGATIVE; Q Fever Phase I IgM Antibody NEGATIVE; Q Fever Phase II IgG Antibody NEGATIVE; Q Fever Phase II IgM Antibody NEGATIVE; R. typhi IgG Ab NOT DETECTED; R. typhi IgM Ab NOT DETECTED; RMSF IgG Ab NOT DETECTED; RMSF IgM Ab NOT DETECTED
== END 2023-10-19 16:17 | disposition home or self-care (01) | DRG 868 ==
LOC: ED 16:54 → 4W 19:58 → INTOOBSV 19:58 → 4W 21:10

== ENCOUNTER 2023-12-31 04:17 | Inpatient (IN) ==
--- OUTSIDE RECORDS SUMMARY | 2023-12-31 04:24 | External Medical Summary | Continuity of Care Document ---
Author Name Unknown Organization [facility] [address] [facility] Address [address] [place], [place] [id number] Care Team Providers Care Bleaching Machine Operator Name Role Phone Salvador Pike Primary Care Physician [phone] [id number] Date(s): 12/24/23 - 12/24/[address] [facility] [address], [address] [place] [address] [phone] Encounter Diagnosis Chest discomfort(Discharge Diagnosis) - 12/24/23 CLEANING (dyspnea on exertion)(Discharge Diagnosis) - 12/24/23 Pacemaker(Discharge Diagnosis) - 12/24/23 Discharge Disposition: Home or Self Care Attending Physician: LING Curry Sarah A Referring Physician: MD Pike John E Allergies, Adverse Reactions, Alerts Substance Criticality Severity Reaction Reaction Severity Status azithromycin hives Active ergotamine hives Active penicillins unk Active Toradol hives Active Assessment and Plan Extracted from: Title:Cardiology Office Visit Note Author:LING Liriano rd, Sarah A Date:12/24/23 Impression 1. Echo at [facility] 12/2022- EF 65-70%, ASA with small PFO, mild mitral valve regurgitation, mild tricuspid valve regurgitation 2. EKG at [facility] showing SR with RBBB, initially with PVCs/aberrantbeats which resolved on subsequent EKG. 3. HLD 4. Prediabetes 5. S/p dual chamber pacemaker for Mobitz II AV block. America's chest discomfort sounds like GERD. I recommended she take omeprazole 30 minutes before breakfastonce a day for the next couple weeks to see if that helps. She did have a semi-recent endoscopy with dilatation. I also discussed herdyspnea whichis separate from the chest discomfort with from electrophysiology. Her EKGdemonstrates sinus rhythmwith first-degree AV block. She does appear to bepacing ventricularly. HerPR interval is quite [id number] ms. She will come infor device checkon if shortening thePR interval is helpful. Medications acetaminophen 500 mg oral tablet Start: 11/17/23 8:49:00 AM EDT, 2 tab, PO, q6h, PRN: fever/mild pain (1-3) Start Date: 11/17/23 Status: Ordered Albuterol (Eqv-Ventolin HFA) 90 mcg/inh inhalation aerosol Start: 10/28/23 12:33:00 PM EDT, 2 puff, inhaled, q6h, PRN: wheezing Start Date: 10/28/23 Status: Ordered alendronate 70 mg oral tablet Start: 10/28/23 12:33:00 PM EDT, 1 tab, PO, q7days Start Date: 10/28/23 Status: Ordered CoQ10 Start: 10/14/23 1:35:00 PM EDT, 200 mg =, PO, Daily Start Date: 10/14/23 Status: Ordered Emgality Prefilled Syringe 120 mg/mL subcutaneous solution Start: 10/28/23 12:32:00 PM EDT, 120 mg =, subQ, qmonth (30 days) Start Date: 10/28/23 Status: Ordered Fish Oil 1000 mg oral capsule Start: 10/14/23 1:35:00 PM EDT, 1 cap, PO, Daily Start Date: 10/14/23 Status: Ordered levothyroxine 25 mcg (0.025 mg) oral tablet Start: 10/28/23 12:32:00 PM EDT, See Instructions, 1 tab PO Daily 2 tabs on Wednesday Start Date: 10/28/23 Status: Ordered turmeric 250 mg oral capsule Start: 12/24/23 2:53:00 PM EDT, 1 cap, PO, Daily Start Date: 12/24/23 Status: Ordered valACYclovir 1 g oral tablet Start: 10/28/23 12:32:00 PM EDT, See Instructions, prn, PRN: cold sore Start Date: 10/28/23 Status: Ordered Mental Status 12/24/23 Barriers to Learning one year None evide nt Mandatory Health Literacy Documentation Yes Health Literacy Communication Barriers R jose david Primary Language Ken[place] Problem List Diagnosis Diagnosis Type Effective Dates Health Status Clinical Service Informant Chest discomfort Discharge Diagnosis 12/24/23 Non-Specified CLEANING (dyspnea on exertion) Discharge Diagnosis 12/24/23 Non-Specified Pacemaker Discharge Diagnosis 12/24/23 Non-Specified Vital Signs Most recent to oldest [Reference Range]: 1 2 Heart Rate 93 bpm (12/24/23 3:04 PM) 105 bpm (12/24/23 2:59 PM) Blood Pressure 116/68mmHg (12/24/23 3:04 PM) 120/78mmHg (12/24/23 2:59 PM) BP Location # 1 Left Arm (12/24/23 3:04 PM) Left Arm, Other: standing (12/24/23 2:59 PM) Social History Social History Type Response Smoking Status Never smoked cigaret scott Sex Sex Representation Female (finding) Cardiology Outpatient Note * LING Curry Sarah A: PERFORM Event Display: Cardiology Outpt Note Authored Date: [id number] Primary Care Provider MD Pike John E Referring Provider MD Pike John E Chief Complaint chest discomfort History of Present Illness America presents today for complaints of dyspnea on exertion and chest tightness. She has been feeling chest pain across her chest over the last few days. It doesn't particularly change with exertion vs not exertion. It worsens with swallowing food and drink ie. drinking coffee this morning was uncomfortable. She is also having shortness of breath with exertion when she first starts to exert herself thatusually gets better as she gets moving. Review of Systems All other systems reviewed and negative except as discussed in the HPI Physical Exam Vitals & Measurements HR:93(Monitored) BP:116/68 SpO2:98% Physical Examination General: Alert and oriented, No acute distress. Respiratory: Lungs are clear to auscultation, Respirations are non-labored. Cardiovascular: Normal rate, Regular rhythm, No murmur, No edema, no carotid bruits to auscultation bilaterally. Integumentary: Warm, Dry, Bow Neurologic: Alert, Oriented. Cognition and Speech: Speech clear and coherent. Psychiatric: Cooperative, Appropriate mood & affect. Assessment/Plan Impression 1. Echo at [facility] 12/2022- EF 65-70%, ASA with small PFO, mild mitral valve regurgitation, mild tricuspid valve regurgitation 2. EKG at [facility] showing SR with RBBB, initially with PVCs/aberrantbeats which resolved on subsequent EKG. 3. HLD 4. Prediabetes 5. S/p dual chamber pacemaker for Mobitz II AV block. America's chest discomfort sounds like GERD. I recommended she take omeprazole 30 minutes before breakfastonce a day for the next couple weeks to see if that helps. She did have a semi-recent endoscopy with dilatation. I also discussed herdyspnea whichis separate from the chest discomfort with from electrophysiology. Her EKGdemonstrates sinus rhythmwith first-degree AV block. She does appear to bepacing ventricularly. HerPR interval is quite ms. She will come infor device checkon if shortening thePR interval is helpful. Medications acetaminophen(acetaminophen 500 mg oral tablet), 1000 mg= 2 tab, PO, q6h, PRN acetaminophen-hydrocodone([place] 5 mg-325 mg oral tablet), 1 tab, PO, q6h, PRN albuterol(Albuterol (Eqv-Ventolin HFA) 90 mcg/inh inhalation aerosol), 2 puff, inhaled, q6h, PRN alendronate(alendronate 70 mg oral tablet), 70 mg= 1 tab, PO, q7days fludeoxyglucose F-18, 10 mCi, IV Push, Pre Event galcanezumab(Emgality Prefilled Syringe 120 mg/mL subcutaneous solution), 120 mg, subQ, qmonth (30 days) levothyroxine(levothyroxine 25 mcg (0.025 mg) oral tablet), See Instructions omega-3 polyunsaturated fatty acids(Fish Oil 1000 mg oral capsule), 1000 mg= 1 cap, PO, Daily Rubidium-82(Rubidium-82 generator), 15.4882 mCi, 0.259 mCi/kg, IV, Pre Event Sodium Chloride 0.9%(Sodium Chloride 0.9% Bolus), 250 mL, Bolus-IV, Pre Event sodium chloride flush(sodium chloride flush 0.9%), 10 mL, IV Push, Pre Event turmeric(turmeric 250 mg oral capsule), 250 mg= 1 cap, PO, Daily ubiquinone(CoQ10), 200 mg, PO, Daily valACYclovir(valACYclovir 1 g oral tablet), See Instructions, PRN Allergies Toradolhives azithromycinhives ergotaminehives penicillinsunk Social History Smoking Status Never smoked cigarettes Electronic Signature on File CC: Salvador Pike MD [address] [facility] [id number] * Electronically Reviewed/Signed by: LING Cortés Author Signature Dt/Tm:12/24/2023 04:36 PM [facility] Patient Care team information Care Team Personnel Name: MD Glendy, Salvador Cuadra Position: Referring DIRECT Member Role: Primary Care Provider [address]: [address] [place] [address], [place] [address] [place] Care Team Related Persons Name: JT LOPEZ
--- OUTSIDE RECORDS SUMMARY | 2023-12-31 04:25 | External Medical Summary | Summary of Care ---
Author Name Unknown Organization [facility] Address [address] [place] [address] Phone [phone] Care Team Providers Care Sox Analyst Name Role Phone Glendy RABAGO MD, Salvador Cuadra Primary Care Provider [phone] Encounter Details Date Type Department Care Team (Late st Contact Info) Description 11/16/2023 Result Scan Unspecified Department <No scans attached> Allergies Active Allergy Reactions Criticality Noted Date Comments Azithromycin Hives High 07/03/2018 Dihydroergotamine High 07/03/2018 Other reaction(s): "THROAT SHUTS DOWN" Ergotamine 06/10/2001 DHE Ketorolac Tromethamine 01/08/2002 hives Penicillins 02/08/2009 rash Poison [place] Extract Rash 06/12/2015 Azithromycin Hives 12/20/2008 documented as of this encounter (statuses as of 11/18/2023) Medications Medication Sig Dispensed Refills Start Date End Date Status LYSINE HCL 500 MG PO TABS Take by mouth. 02/01/2013 Active SENNA S 8.6-50 MG PO TABS one tablet twice daily 02/01/2013 Active Multiple Vitamins-Minerals (MULTIVITAMIN GUMMIES ADULTS) CHEW Take by mouth. Active fluticasone (FLONASE) 50 MCG/ACT nasal sprayIndications:Al lergic rhinitis Administer 1 [place] into nostril daily. 16 g 5 06/12/2015 [...] for Dizziness. 30 Tablet 1 02/09/2023 Active Premarin 0.625 MG/GM Vaginal Cream (Estrogens Conjugated) Insert vaginally as directed twice weekly at bedtime(wed and ) 90 g 3 02/25/2023 Active Emgality 120 MG/ML Subcutaneous Solution Prefilled Syringe ([facility]) INJECT 1 ML UNDER THE [...] Capsule before bedtime. 60 Capsule 08/26/2023 Active Additional Information Patient not taking.Reported on 10/26/2023 B-12 1000 MCG Oral Tablet Take by mouth. Active cefTRIAXone 250 mg/mL IJ Recon Soln Inject into a large muscle daily. Active SUMAtriptan Succinate 100 MG Oral TabletIndications:M igraine without aura and without status migrainosus, not intractable,Migrain e with aura and without status migrainosus, not intractable TAKE 1 TABLET AT ONSET OF MIGRAINE. MAY REPEAT IN 2 HOUR BUT NO MORE THAN 2 TABLETS IN 24 HOURS. 9 Tablet 5 11/03/2023 Active Meperidine HCl 100 MG/ML Injection Solution (Demerol)Indication s:Common migraine with intractable migraine Inject 100 mg into a large muscle every 4 hours as needed for Headache. 1 mL 11/12/2023 Active documented as of this encounter (statuses as of 11/18/2023) Active Problems Problem Noted Date Diagnosed Date [...] as of this encounter (statuses as of 11/18/2023) Resolved Problems Problem Noted Date Diagnosed Date [...] as of this encounter (statuses as of 11/18/2023) Immunizations Name Administration Dates Next Due COVID-19 mRNA, LNP-s, No Pre serve, 2-Dose Series (Moderna) 03/27/2020,02/28/2020 COVID-19, mRNA, LNP-s, PF, B ooster, 100mcg/0.5mg (Moderna) 01/10/2021 DTWP - Dipth/Tet/Whole Cell Pertussis 04/01/2000 PPD 11/28/2009 Seasonal Influenza, Quadrivalent, No Preserve, I M 11/29/2022,12/18/2020 Seasonal Influenza, Trivalen t, (IIV3), with Preserv, (Fluzone) 01/04/2013,11/28/2009 TD, Preservative Free 09/13/2019 TDAP, Age [...] No 05/19/2023 Does the household have a [facility] source [facility] income? (Household - for ages [...] as of this encounter Plan of Treatment Scheduled Procedures [...] Scan 12/23/2020 12/23/2018 COVID-19 Vaccine ( season) 2023 01/10/2021, 03/27/2020, 02/28/2020 Influenza Vaccine (FLU shot) (#1) 2023 11/29/2022, 12/18/2020, 01/04/2013, Additional history exists HbA1c 01/13/2024 01/12/2023, 1104/2021, 08/02/2009, Additional history exists Depression Screening 03/23/2024 03/23/2023 TSH 09/27/2024 09/28/2023, 04/0 04/2023, 03/24/2023, Additional history exists Colonoscopy 12/21/2024 12/21/2014, 12/21/2014 Colorectal Cancer Screening 12/21/2024 Lipid Panel 01/13/2028 01/12/2023, 110 04/2021, 07/12/2020, Additional history exists DTap/Tdap Vaccines (4 - Td or Tdap) 09/12/2029 09/13/2019, 07/18/2009, 04/01/2000 VITAMIN D LEVEL ONCE IN A LIFETIME-USE SMARTSET# [id number] Completed 01/12/2023, 07/12/2020, 09/05/2018, Additional history exists [...] Procedure Name Priority Date/Time Associated Diagnosis Comments CARDIOLOGY SCANNED RESULT 11/16/2023 documented in this encounter Results * CARDIOLOGY SCANNED RESULT (11/16/2023) 11/16/2023 No Physician Data Unknown OTHER documented in this encounter Advance Directives * Full Code (Latest Code Status on File) Date Activated Date Inactivated Comments 06/07/2011 11:19 PM 06/10/2011 3:09 PM This order r eflects the patients wishes and were consensually agreed upon. Care Teams Sox Analyst Relationship Specialty Start Date End Date Salvador Pike III, MD [address] [place] [address] PCP - General Family Medicine 12/25/20 documented as of this encounter
--- OUTSIDE RECORDS SUMMARY | 2023-12-31 04:25 | External Medical Summary | Continuity of Care Document ---
Author Name Unknown Organization [facility] [address] [facility] Address [address] [place], [place] [id number] Care Team Providers Care Heavy Threader Name Role Phone Salvador Pike Primary Care Physician [phone] [id number] Date(s): 12/02/23 - 12/02/23 [facility] [address], [address] [place] [address] [phone] Discharge Disposition: Home or Self Care Attending Physician: MD Gilman Soraya M Referring Physician: MD Gilman Soraya M Allergies, Adverse Reactions, Alerts Substance Criticality Severity Reaction Reaction Severity Status azithromycin hives Active ergotamine hives Active Toradol hives Active penicillins unk Active Medications acetaminophen 500 mg oral tablet Start: [...] Status: Ordered CoQ10 Start: 10/14/23 1:35:00 PM EDT Start Date: 10/14/23 Status: Ordered Emgality Prefilled Syringe 120 mg/mL subcutaneous solution Start: 10/28/23 12:32:00 PM EDT, 120 mg =, subQ, qmonth (30 days) Start Date: 10/28/23 Status: Ordered Fish Oil 1000 mg oral capsule Start: 10/14/23 1:35:00 PM EDT Start Date: 10/14/23 Status: Ordered levothyroxine 25 mcg (0.025 mg) oral tablet Start: 10/28/23 12:32:00 PM EDT, 1 tab, PO, Daily Start Date: 10/28/23 Status: Ordered [place] 5 mg-325 mg oral tablet Start: 11/17/23 9:19:00 AM EDT, 1 tab, PO, q6h, Disp# 7 tab, Refills: 0, PRN: as needed for pain, Pharmacy: [id number] Start Date: 11/17/23 Status: Ordered valACYclovir 1 g oral tablet Start: 10/28/23 12:32:00 PM EDT, See Instructions, prn, PRN: cold sore Start Date: 10/28/23 Status: Ordered Social History Social History Type Response Smoking Status Never smoked cigaret scott Sex Sex Representation Female (finding) Cardiology * Event Display: Cardiac Device Check Authored Date: Please click on link to see image. Patient Care team information Care Team Personnel Name: MD Glendy, Salvador Cuadra Position: Referring DIRECT Member Role: Primary Care Provider Address: [address] [place] [address] Care Team Related Persons Name: JT LPOEZ
--- OUTSIDE RECORDS SUMMARY | 2023-12-31 04:25 | External Medical Summary | Summary of Care ---
Author Name Unknown Organization [facility] Address [address] [place] [address] Phone [phone] Care Team Providers Care Set Up Mechanic Coating Machines Name Role Phone Glendy RABAGO MD, Salvador Cuadra Primary Care Provider [phone] Reason for Visit * Reason Onset Date Comments Advice 09/20/2023 Encounter Details Date Type Department Care Team (Late st Contact Info) Description 09/20/2023 Telephone Family Practice [facility] [address] [place] [address] Salvador Pike III, MD [address] [place] [address] Advice Allergies Active Allergy Reactions Criticality Noted Date Comments Azithromycin Hives High 07/03/2018 Dihydroergotamine High 07/03/2018 Other reaction(s): "THROAT SHUTS DOWN" Ergotamine 06/10/2001 [facility] Ketorolac Tromethamine 01/08/2002 hives Penicillins 02/08/2009 rash Poison [place] Extract Rash 06/12/2015 Azithromycin Hives 12/20/2008 documented as of this encounter (statuses as of 12/20/2023) Medications Medication Sig Dispensed Refills Start Date End Date Status LYSINE HCL 500 MG PO TABS Take by mouth. 3 Active SENNA S 8.6-50 MG PO TABS one tablet twice daily 3 Active Multiple Vitamins-Mineral s (MULTIVITAMIN GUMMIES ADULTS) CHEW Take by mouth. Active fluticasone (FLONASE) 50 MCG/ACT nasal sprayIndications :Allergic rhinitis Administer 1 [place] into nostril daily. 16 g 5 6 Active vitamin c (ASCORBIC ACID) 500 MG Tablet Take 1 Tablet by mouth in the morning and 1 Tablet before bedtime. 7 Active zinc gluconate 50 MG Tablet Take 1 Tablet by mouth in the morning. 7 Active Folic Acid 400 MCG Tablet Take 1 Tablet by mouth in the morning. 7 Active Selenium 200 MCG CAPS Take by mouth. 7 Active Cholecalciferol 5000 units Capsule Take 1 Capsule by mouth in the morning. 8 Active Ibuprofen-Famoti dine 800-26.6 MG Oral Tablet Take 1 Tab by mouth as needed. Active Ondansetron HCl 4 MG Oral TabletIndication s:Common migraine with intractable migraine Take 1 Tablet (4 mg) by mouth every 6 hours as needed for Nausea. 30 Tablet 2 Active Meclizine HCl 25 MG Oral Tablet (Antivert) Take 1 Tablet by mouth 3 times a day as needed for Dizziness. 30 Tablet 1 3 Active Premarin 0.625 MG/GM Vaginal Cream (Estrogens Conjugated) Insert vaginally as directed twice weekly at bedtime(wed and ) 90 g 3 3 Active Emgality 120 MG/ML Subcutaneous Solution Prefilled Syringe (Galcanezumab-gn lm) INJECT 1 ML UNDER THE SKIN ONCE MONTHLY 1 mL 9 4 Active Pantoprazole Sodium 40 MG Oral Tablet Delayed Release (Protonix) 3 Active Tamsulosin HCl 0.4 MG Oral Capsule (Flomax)Indicati ons:Calcium oxalate renal calculi,Hydronep hrosis, left 3 Active valACYclovir HCl 1 GM Oral Tablet (Valtrex)Indicat ions:H/O cold sores Take 2 Tablets by mouth in the morning and 2 Tablets before bedtime. for cold sores. 4 Tablet 11 4 Active Ventolin HFA 108 (90 Base) MCG/ACT Inhalation Aerosol SolutionIndicati ons:Bronchitis, complicated,Pers istent cough for 3 weeks or longer Inhale 2 Puffs by mouth every 4 hours as needed for Wheezing or Cough. 18 g 4 Active LORazepam 1 MG Oral Tablet (Ativan) Take 1 Tablet by mouth 3 times a day as needed for Anxiety. 5 Tablet 4 Active Levothyroxine Sodium 25 MCG Oral Tablet (Levoxyl) Take 1 Tablet by mouth in the morning. Mon-sat 2 tabs wednesday(at least 30 min prior to breakfast or other meds). 105 Tablet 2 4 Active Ibuprofen 200 MG Oral Tablet (Motrin) Take 2 Tablets by mouth every 6 hours as needed. Active Alendronate Sodium 70 MG Oral Tablet (Fosamax)Indicat ions:Other osteoporosis without current pathological fracture Take 1 tablet by mouth weekly with 8 oz of water 30 min before the first meal of the day, remain upright for 30 min after taking tablet 12 Tablet 1 4 Active Doxycycline Hyclate 100 MG Oral Capsule Take 1 Capsule by mouth in the morning and 1 Capsule before bedtime. 60 Capsule 4 Active Additional Information Patient not taking.Reported on 10/26/2023 SUMAtriptan Succinate 100 MG Oral TabletIndication s:Migraine without aura and without status migrainosus, not intractable,Migr sandy with aura and without status migrainosus, not intractable TAKE 1 TABLET AT ONSET OF MIGRAINE. MAY REPEAT IN 2 HOUR BUT NO MORE THAN 2 TABLETS IN 24 HOURS. 9 Tablet 5 3 11/01/19 24 Discontinued(Re fill) Cefuroxime Axetil 500 MG Oral Tablet (Ceftin)Indicati ons:UTI symptoms,Bronchi tis, complicated,Pers istent cough for 3 weeks or longer Take 1 Tablet by mouth in the morning and 1 Tablet before bedtime. -took in past. 20 Tablet 4 09/27/19 24 Discontinued(Me dication List Clean Up) predniSONE 10 MG Oral Tablet (Deltasone)Indic ations:Bronchiti s, complicated,Pers istent cough for 3 weeks or longer Take 5 tabs for 2 days, 4 tabs for 2 days, 3 tabs for 2 days, 2 tabs for 2 days 1 tab for 2 days 30 Tablet 4 09/27/19 24 Discontinued(Me dication List Clean Up) Promethazine-DM 6.25-15 MG/5ML Oral SyrupIndications :Bronchitis, complicated,Pers istent cough for 3 weeks or longer Take 5 mL by mouth 4 times a day as needed for Cough. 120 mL 4 09/27/19 24 Discontinued(Me dication List Clean Up) Promethazine-Cod eine 6.25-10 MG/5ML Oral Syrup (Phenergan and Codeine)Indicati ons:Bronchitis, complicated,Pers istent cough for 3 weeks or longer Take 5 mL by mouth 4 times a day as needed for Cough. 120 mL 4 09/27/19 24 Discontinued(Me dication List Clean Up) Meperidine HCl 100 MG/ML Injection Solution (Demerol)Indicat ions:Common migraine with intractable migraine Inject 100 mg into a large muscle every 4 hours as needed for Headache. 1 mL 4 09/21/19 24 Discontinued Nirmatrelvir&Rit onavir 300/100 20 x 150 MG & 10 x 100MG Oral Tablet Therapy Pack (Paxlovid (300/100)) Take 2 pink tablets of Nirmatrelvir and 1 white tablet of Ritonavir two times a day by mouth. 30 Tablet 4 09/27/19 24 Discontinued(Me dication List Clean Up) documented as of this encounter (statuses as of 12/20/2023) Active Problems Problem Noted Date Diagnosed Date [...] as of this encounter (statuses as of 12/20/2023) Resolved Problems Problem Noted Date Diagnosed Date [...] as of this encounter (statuses as of 12/20/2023) Immunizations Name Administration Dates Next Due COVID-19 mRNA, LNP-s, No Pre serve, 2-Dose Series (Moderna) 03/27/2020,02/28/2020 COVID-19, mRNA, LNP-s, PF, B ooster, 100mcg/0.5mg (Moderna) 01/10/2021 DTWP - Dipth/Tet/Whole Cell Pertussis 04/01/2000 PPD 11/28/2009 Seasonal Influenza Vac., MDV, IM, 0.5 mL (Fluzon e) 01/04/2013,11/28/2009 Seasonal Influenza, Quadrivalent, No Preserve, I M 11/29/2022,12/18/2020 TD, Preservative Free 09/13/2019 TDAP, Age 6 [...] encounter Miscellaneous Notes * Telephone Encounter - Esha Momin MED ASSIST - 09/22/2023 11:19 AM EDT Please see patient's message. Thank you! * Telephone Encounter - Esha Momin MED ASSIST - 09/21/2023 2:58 PM EDT Please see patient's message. Thank you! * Telephone Encounter - Jodi Andersen, SANA - 09/20/2023 2:02 PM EDT Patient tested positive with covid, only had symptoms for 2 days would like to request medication for this sent to [facility] in [place] documented in this encounter Plan of Treatment [...] D LEVEL ONCE IN A LIFETIME-USE SMARTSET# [id number] Completed 01/12/2023, 07/12/2020, 09/05/2018, Additional history exists [...] and were consensually agreed upon. Care Teams Set Up Mechanic Coating Machines Relationship Specialty Start Date End Date Salvador Pike III, MD [address] [place] [address] PCP - General Family Medicine 12/25/20 documented as of this encounter
--- OUTSIDE RECORDS SUMMARY | 2023-12-31 04:25 | External Medical Summary | Summary of Care ---
Author Name Unknown Organization [facility] Address [address] [place] [address] Phone [phone] Care Team Providers Care Superannuation Clerk Name Role Phone Glendy RABAGO MD, Denzel Cuadra Primary Care Provider [phone] Reason for Visit * Reason Onset Date Comments Medication Refill 12/08/2023 Encounter Details Date Type Department Care Team (Late st Contact Info) Description 12/08/2023 Refill Family Practice [facility] [address] [facility] [place] [address] Denzel Mcnair III, MD [address] [place] [address] Common migraine with intractable migraine Allergies Active Allergy Reactions Criticality Noted Date Comments Azithromycin Hives High 07/03/2018 Dihydroergotamine High 07/03/2018 Other reaction(s): "THROAT SHUTS DOWN" Ergotamine 06/10/2001 [facility] Ketorolac Tromethamine 01/08/2002 hives Penicillins 02/08/2009 rash Poison [place] Extract Rash 06/12/2015 Azithromycin Hives 12/20/2008 documented as of this encounter (statuses as of 12/10/2023) Medications Medication Sig Dispensed Refills Start Date End Date Status LYSINE HCL 500 MG PO TABS Take by mouth. 02/01/2013 Active SENNA S 8.6-50 MG PO TABS one tablet twice daily 02/01/2013 Active Multiple Vitamins-Minerals (MULTIVITAMIN GUMMIES ADULTS) CHEW Take by mouth. Active fluticasone (FLONASE) 50 MCG/ACT nasal sprayIndications:A llergic rhinitis Administer 1 [place] into nostril daily. 16 g 5 06/12/2015 [...] 120 MG/ML Subcutaneous Solution Prefilled Syringe (Galcanezumab-gn ) INJECT 1 ML UNDER THE SKIN [...] daily. Active SUMAtriptan Succinate 100 MG Oral TabletIndications: [...] hours as needed for Headache. 1 mL 12/10/2023 Active Meperidine HCl 100 MG/ML Injection Solution (Demerol)Indicatio ns:Common migraine with intractable migraine Inject 100 mg into a large muscle every 4 hours as needed for Headache. 1 mL 11/12/2023 Discontinue d(Refill) documented as of this encounter (statuses as of 12/10/2023) Active Problems Problem Noted Date Diagnosed Date [...] as of this encounter (statuses as of 12/10/2023) Resolved Problems Problem Noted Date Diagnosed Date [...] as of this encounter (statuses as of 12/10/2023) Immunizations Name Administration Dates Next Due COVID-19 [...] 05/19/2023 Does the household have a unm cancer centerlar source of income? (Household - for [...] Encounter - Denzel Mcnair III, MD - 12/10/2023 9:44 AM EDTSigned Prescriptions: Disp Refills Meperidine HCl 100 MG/ML Injection Solutio*1 mL 0 Sig: Inject 100 mg into a large muscle every 4 hours as needed for Headache.Authorizing Provider: DENZEL MCNAIR III * Telephone Encounter - Nena Cesar [facility] - 12/10/2023 9:05 AM EDTPending Prescriptions: Disp Refills Meperidine HCl 100 MG/ML Injection Solutio*1 mL 0 Sig: Inject 100 mg into a large muscle every 4 hours as needed for Headache. * Telephone Encounter - Nena Cesar [facility] - 12/10/2023 9:04 AM EDT I have reviewed the patients controlled substance dispensing history in the Prescription Drug Monitoring Program in compliance with the [place] regulations before prescribing a controlled substance. PDMP checked on 12/10/2023. Pending Prescriptions: Disp Refills Meperidine HCl 100 MG/ML Injection Soluti*1 mL 0 Sig: Inject 100 mg into a large muscle every 4 hours as needed for Headache. Last Visit: 10/26/2023 (in office), 02/03/2023 (telemedicine) Next Visit: Visit date not found Date medication was last filled: 11/12/23 Date medication is due for refill: 11/13/23 Hydrocodone/APAP filled 11/17/23 #7 for 1 day Pharmacy: [id number] Is this request for a controlled substance? Yes and Urine Drug Screen Not completed Toxicology results: No results found. However, due to the size of the patient record, not all encounters were searched.Please check Results Review for a complete set of results. Please approve if appropriate. Nena Riley Clinical Pharmacist [facility] ([facility] [phone] 12/10/2023, 9:04 AM documented in this encounter Plan of [...] D LEVEL ONCE IN A LIFETIME-USE SMARTSET# [id number] Completed 01/12/2023, 07/12/2020, 09/05/2018, Additional history exists [...] and were consensually agreed upon. Care Teams Superannuation Clerk Relationship Specialty Start Date End Date Denzel Mcnair III, MD [address] [place] [address] PCP - General Family Medicine 12/25/20 documented as of this encounter
--- OUTSIDE RECORDS SUMMARY | 2023-12-31 04:25 | External Medical Summary | Continuity of Care Document ---
Author Name Unknown Organization [facility] Address [address] [place] [id number] Care Team Providers Care Government Teacher Name Role Phone Salvador Pike Primary Care Physician [phone] Encounter [facility] [id number] Date(s): 11/16/23 - 11/17/[address] [phone] Encounter Diagnosis AV block, 2nd degree(Discharge Diagnosis) - 11/16/23 Atrioventricular block, complete(Final) - Hypothyroidism, unspecified(Final) - Gastro-esophageal reflux disease without esophagitis(Final) - Hormone replacement therapy(Final) - Discharge Disposition: Home or Self Care Attending Physician: MD Gilman Soraya M Referring Physician: MD Gilman Soraya M Allergies, Adverse Reactions, Alerts Substance Criticality Severity Reaction Reaction Severity Status azithromycin hives Active ergotamine hives Active penicillins unk Active Toradol hives Active Functional Status 11/17/23 History of Fall in Last 3 Months [place] N o Presence of Secondary Diagnosis [place] Ye s Use of Ambulatory Aid [place] None/bedrest /nurse assist IV/Heparin Lock Fall Risk [place] No Gait/Transferring Fall Risk [place] Normal /bedrest/immobile Mental Status Fall Risk [place] Oriented t o own ability [place] Fall Risk Score 15 [place] Fall Risk No Risk 11/17/23 Neurological Symptoms None ADLs Independent Facial Symmetry Symmetric Gait Steady Swallowing Difficulty None Level of Consciousness Neuro Alert Hallucinations Present None Speech Pattern Clear Medications acetaminophen 500 mg oral tablet Start: [...] PO, Daily Start Date: 10/28/23 Status: Ordered [place] 5 mg-325 mg oral tablet Start: 11/17/23 9:19:00 AM EDT, 1 tab, PO, q6h, Disp# 7 tab, Refills: 0, PRN: as needed for pain, Pharmacy: [id number] Start Date: 11/17/23 Status: Ordered valACYclovir 1 g oral tablet Start: 10/28/23 12:32:00 PM EDT, See Instructions, prn, PRN: cold sore Start Date: 10/28/23 Status: Ordered Problem List Diagnosis Diagnosis Type Effective Dates Health Status Cl inical Service Informant AV block, 2nd degree Discharge Diagnosis 11/16/23 Non-Specified Results Laboratory List Name Date Basic Metabolic Panel (BMP) 11/16/23 Prothrombin Time w/ INR (PT/INR) 11/16/23 Complete Blood Count w Differential (CBC w Platelets and Diff) 11/16/23 Most recent to oldest [Reference Range]: 1 eGFR CKD-EPI [>60 mL/min/1.73 m2] 78 mL/ min/1.73 m2 (11/16/23 12:42 PM) Platelet Morphology NORMAL *Unknown* (11/16/23 12:42 PM) Estimated CrCl 60.76 mL/min (11/16/23 1:27 PM) MPV [9.0-12.2 fL] 10.1 fL (11/16/23 12:42 PM) Immature Gran% 0.0 % (11/16/23 12:42 PM) Neut% 55.0 % (11/16/23 12:42 PM) Lymph% 28.8 % (11/16/23 12:42 PM) [place]% 12.6 % (11/16/23 12:42 PM) Baso% 0.9 % (11/16/23 12:42 PM) Eos% 2.7 % (11/16/23 12:42 PM) Immat Gran, Abs [0.0-0.4 K/uL] 0.00 K/uL (11/16/23 12:42 PM) Neut, Abs [2.0-7.7 K/uL] 1.56 K/uL *LOW* (11/16/23 12:42 PM) Lymph, Abs [1.0-3.4 K/uL] 0.82 K/uL *LOW* (11/16/23 12:42 PM) [place], Abs [0-1.0 K/uL] 0.36 K/uL (11/16/23 12:42 PM) Baso, Abs [0-0.1 K/uL] 0.03 K/uL (11/16/23 12:42 PM) Eos, Abs [0-0.5 K/uL] 0.08 K/uL (11/16/23 12:42 PM) Type of Diff: MANUAL *Unknown* (11/16/23 12:42 PM) RBC Morphology NORMAL *Unknown* (11/16/23 12:42 PM) RDW [11.5-14.2 %] 13.7 % (11/16/23 12:42 PM) Anion Gap [5-14 mmol/L] 12 mmol/L (11/16/23 12:42 PM) BUN [6-23 mg/dL] 12 mg/dL (11/16/23 12:42 PM) Ca [8.4-10.2 mg/dL] 9.3 mg/dL (11/16/23 12:42 PM) Cl- [98-107 mmol/L] 104 mmol/L (11/16/23 12:42 PM) HCO3 [22-29 mmol/L] 25 mmol/L (11/16/23 12:42 PM) Cret [0.60-1.00 mg/dL] 0.86 mg/dL (11/16/23 12:42 PM) Glu [74-109 mg/dL] 92 mg/dL 1 (11/16/23 12:42 PM) Hct [35-44 %] 39.5 % (11/16/23 12:42 PM) Hgb [11.7-15.0 g/dL] 13.3 g/dL (11/16/23 12:42 PM) INR [0.9-1.1] 1.1 2 (11/16/23 12:42 PM) K [3.5-5.1 mmol/L] 3.7 mmol/L 3 (11/16/23 12:42 PM) MCH [28-33 pg] 29.8 pg (11/16/23 12:42 PM) MCHC [32-36 g/dL] 33.7 g/dL (11/16/23:42 PM) MCV [81-96 fL] 88.6 fL (11/16/23 12:42 PM) Na [136-145 mmol/L] 141 mmol/L (11/16/23 12:42 PM) Plts [150-350 K/uL] 157 K/uL (11/16/23 12:42 PM) PT [12.0-14.2 seconds] 14.2 seconds (11/16/23 12:42 PM) RBC [3.90-5.00 M/uL] 4.46 M/uL (11/16/23 12:42 PM) WBC [4.0-10.4 K/uL] 2.84 K/uL *LOW* (11/16/23 12:42 PM) 1Result Comment: ADA recommendation for FASTING Serum/Plasma Glucose: Normal: 70-100 mg/dL Prediabetes: 100-125 mg/dL Diabetes: 126 mg/dL or higher 2Result Comment: Suggested therapeutic range for low-intensity Coumadin therapy for venous thromboembolism is INR 2.0-3.0 (ex: atrial fibrillation, history of TIA/stroke). For high risk patients, the suggested therapeutic range is INR 2.5-3.5 (ex: mechanical prosthetic valves). 3Result Comment: HEMOLYZED SPECIMEN Radiology Reports * Exam Date Time Procedure Performing Provider Status 11/17/23 5:05 AM XR Chest 2 Views Jose Mccord Notes: (XR Chest 2 Views) Reason For Exam: Check Pacemaker/Other Device S/P Pacemaker/ICD Placement XR Chest 2 Views EXAMINATION: XR Chest 2 Views CLINICAL HISTORY: Check Pacemaker/Other Device S/P Pacemaker/ICD Placement COMPARISON: Chest radiograph 11/16/2023 FINDINGS: Upright 2 views of the chest. Unchanged left chest wall pacemaker. Normal cardiomediastinal silhouette and pulmonary vasculature. Bibasilar hazy airspace opacities, new. No pleural effusion. No pneumothorax. No acute osseous abnormality. IMPRESSION: 1. New bibasilar airspace opacities, likely atelectasis. 2. Unchanged left chest wall pacemaker. Workstation ID: [id number] Final Dictated by:DO Koch Rushi Dictated DT/TM:11/17/2023 8:59 Signed by:DO Koch Rushi Signed (Electronic Signature):11/17/2023 8:58 a * Exam Date Time Procedure Performing Provider Status 11/16/23 5:21 PM XR Chest 1 View Chayito Vela; Final Notes: (XR Chest 1 View) Reason For Exam: Check Pacemaker/Other Device Post-Op Pacer- ICD Implant XR Chest 1 View EXAMINATION: XR Chest 1 View CLINICAL HISTORY: Check Pacemaker/Other Device Post-Op Pacer-ICD Implant COMPARISON: None. FINDINGS: AP supine radiograph of the chest. Left chest wall pacemaker with leads terminating in the right atrium and right ventricle. No evidence of lead discontinuity or abandoned lead. Cardiomediastinal silhouette and pulmonary vasculature appear normal. No focal consolidation. No pneumothorax, no pleural effusion. No acute osseous abnormalities. IMPRESSION: 1. Left chest wall pacemaker. No evidence of lead discontinuity or abandoned lead. 2. No acute cardiopulmonary abnormality. Dr. Pardeep Alcantara is the dictating resident. Finalized report status indicates that the attendinghas reviewed the images and report, and agrees with the interpretation. Preliminary report status should be regarded as NOT interpreted by the attending radiologist. Workstation ID: [id number] Final Dictated by:DO Alcantara Anthony Dictated DT/TM:11/16/2023 5:48 Resident:DO Alcantara Anthony Signed by:DO Koch Rushi Signed (Electronic Signature):11/16/2023 5:47 p Vital Signs Most recent to oldest [Reference Range]: 1 2 3 Height 162.5 cm (11/16/23 12:27 PM) 162.5 cm (11/15/23 2:49 PM) Patient Weight 64.4 kg (11/16/23 12:27 PM) Body Mass Index 24.39 kg/m2 (11/16/23 12:27 PM) Temperature [36.5-37.9 DegC] 35.9 DegC *LOW* (11/17/23 5:09 AM) 36.0 DegC *LOW* (11/16/23 11:27 PM) 36.6 DegC (11/16/23 9:10 PM) Heart Rate 65 bpm (11/17/23 5:09 AM) 71 bpm (11/16/23 11:27 PM) 73 bpm (11/16/23 9:10 PM) Respiratory Rate 21 br/min (11/16/23 6:30 PM) 15 br/min (11/16/23 6:00 PM) 11 br/min (11/16/23 5:45 PM) Blood Pressure 125/85mmHg (11/17/23 5:09 AM) 116/83mmHg (11/16/23 11:27 PM) 104/72mmHg (11/16/23 9:10 PM) Mean Blood Pressure 97 mmHg (11/17/23 5:09 AM) 94 mmHg (11/16/23 11:27 PM) 84 mmHg (11/16/23 9:10 PM) Cuff Pulse Pressure 40 mmHg (11/17/23 5:09 AM) 33 mmHg (11/16/23 11:27 PM) 32 mmHg (11/16/23 9:10 PM) BP Location # 1 Left Arm, Non-invasive (11/16/23 5:10 PM) Left Arm, Non-invasive (11/16/23 12:30 PM) Social History Social History Type Response Smoking Status Never smoked cigaret scott Sex Sex Representation Female (finding) Radiology * Event Display: Cardiac Device Check Authored Date: [id number] Please click on link to see image. Cardiology * Contributor_system, MUSE01: VERIFY, PERFORM Event Display: EKG Authored Date: [id number] Please click on link to see image. * Contributor_system, MUSE01: VERIFY, PERFORM Event Display: EKG Authored Date: [id number] Please click on link to see image. History and physical note * LING Morales Michelle C: PERFORM LING Morales Michelle C: PERFORM, MODIFY LING Morales Michelle C: MODIFY Event Display: H&P Authored Date: HISTORY AND PHYSICAL Name: ERIKA LOPEZ Patient Number: [id number] : 1965 Date of Service: 11/16/2023 Chief Complaint: Pt presents for L side dual chamber pacer implant History of Present Illness: 58 yo woman followd by Dr Gilman for L side dual chamber pacer implant .Pt developed rather abrupt CLEANING and new finding of 2:1 CHB , with known Lyme and + titre pt has received several round of antibiotics including. IV ceftriaxone, Wearable monitor noted for AVb with exertion . Resting heart rate does not drop below 40bpm. Pt endorses dizziness and fatigue with position change. Pt had modified life style to assist with exertion. She continues to work FT at [employer]. Most recent TTE: OSH EF- 60%, mild MR , atrial septal aneurysm noted. EKG: SB with IRBBB QRS- 118ms. Review Of Systems: Pt has intermittent 2:1 CHB , A 10 point ROS was completed and all other systemsare negative except what is noted in HPI. Past Medical History: Kidney stones GERD 2:1 CHB Lyme disease Anaplasmosis Hypothyroid Migraines PFO Leukopenia Procedure History Procedure Procedure Date Comments Lithotripsy Ovarian Torsion Kidney Lithopriosy Surgical History: As Above Family History: Sister- Brain tumor Brother- respiratory issues Mother - Emphysema, IgA/IgG deficiency Social History: lives with works FT - [employer] - rec drug use, Tobacco, occasional ETOH Allergies and Sensitivities: ergotamine(hives) Toradol(hives) azithromycin(hives) penicillins(unk) Current Home Meds: (Last Updated 11/15 12:59) albuterol (Albuterol (Eqv-Ventolin HFA) 90 mcg/inh inhalation aerosol) 2 puff inhaled q6h PRN: wheezing alendronate (alendronate 70 mg oral tablet) 70 mg PO q7days cefTRIAXone (Rocephin 1 g injection) 1 g IV Daily x 21 days galcanezumab (Emgality Prefilled Syringe 120 mg/mL subcutaneous solution) 120 mg subQ qmonth (30 days) levothyroxine (levothyroxine 25 mcg (0.025 mg) oral tablet) 25 mcg PO Daily omega-3 polyunsaturated fatty acids (Fish Oil 1000 mg oral capsule) ubiquinone (CoQ10) valACYclovir (valACYclovir 1 g oral tablet) PRN: cold sore prn Vitals: Last Updated 11/16/23 12:30 Weights: Last Updated 11/16/23 12:27 Date Temp Pulse BP RR SpO2 FIO2 Date Wt(kg) Wt(lb) 11/15 12:30 36.3 132/84 20 100 11/15 12:27 64.4 142 11/15 12:27 64.4 142 24 Hr Tmax: 36.3 at 11/15 12:30 Initial Wt: 11/15 64.4 kg 142 lb Physical Exam: General: NAD, accompanied by spouse HEENT: Normocephalic, PERRLA Neck: Supple w/o carotid bruits, No JVD Cardiac: RRR, S1/S2 heart tone ,w/o M/R/G, PMI nondisplaced. Lungs: CTA bilaterally w/o wheezes or rales Abdomen: Soft, nontender, nonpalpable organs, +bowel sounds all 4 quads, no abdominal bruits. Extremities: No clubbing cyanosis or edema noted. Radial pulses - 2 R , 2 L DP pulses- 2 R, 2 L NEURO: A & O x 3 SKIN: Warm dry ,Intact, no open lesions or rashes Most Recent 24 Hour CBC/BMP Results CBC:on 11/16/2023 12:42 13.3 2.8 157 39.5 Abs Neut = Pending Most Recent 24 Hour Labs: 11/16/23 1242 MCH 29.8 MCHC 33.7 MCV 88.6 RBC 4.46 MPV 10.1 Immature Gran% Pending Neut% Pending Lymph% Pending [place]% Pending Baso% Pending Eos% Pending Immat Gran, Abs Pending Lymph, Abs Pending [place], Abs Pending Baso, Abs Pending Eos, Abs Pending Type of Diff: See Flowsheet RDW 13.7 Studies: Pending or Completed in the Last 24 Hours Devices - Pacer Implant- Dual Ordered ASSESSMENT: L side dual chamber pacer implant for symptomatic intermittent 2:1 CHB , Pt will require MRI for r/o sarcoidosis at least 6 weeks post implant. Informed consent reviewed with pt and obtained for procedure. Reviewed and discussed moderate sedation plan as well as alternatives. Pt verbalized an understanding and wishes to proceed. . 1.Further recommendations pending outcome of study. Attending addendum: Patient seen and evaluated by myself with LNIG Morales.. I agree with the exam, assessment and plan as described above. Plan for dual chamber pacemaker for symptomatic heart block. Risks and benefits discussed and pt has consented. MD Anisha Electronic Signature on File Electronically Reviewed/Signed by: LING Leigh Author Signature Dt/Tm:11/16/2023 02:55 PM [facility], [address], [address], [place] [address] Electronically Reviewed/Signed by: Jaimie Gilman MD Cosigner Signature Dt/Tm: 11/16/2023 02:46 PM [facility], [address], [address], [place] [address] [facility] Outpt Note * LING Morales Michelle C: PERFORM Event Display: Outpt Note Authored Date: [id number] Name:ERIKA LOPEZ Patient Number:[id number] :1965 Date of Service:11/12/2023 Electrophysiology Pre-ProcedureInstructions NPO Status:NPO after midnight for all solids the night before surgery - clear liquids (water, apple juice, Gatorade, black coffee,black tea)after midnight up until one (1) hour prior to patientarrival time no meds to hold. [facility] LING. Electronic Signature on File Electronically Reviewed/Signed by: LING Leigh Author Signature Dt/Tm:11/12/2023 09:49 AM [facility], [id number] [facility], [address], [place] [address] [facility] Discharge instructions * LING Morales Michelle C: PERFORM LING Martini Melvin J: MODIFY Event Display: Patient Discharge Instructions Authored Date: [id number] JOHN ERIKA WOLFE :1965 Visit Date:11/16/2023 Patient Discharge Instructions [facility] For medical concerns, call: . Date of Admission:11/16/2023 Date of Discharge:11/17/2023 Physician:MD Mukul, Jaimie León Service:Cardiology Discharge Disposition: . Advance Directive:No Reason for Hospitalization pacemaker Your Diagnoses AV block, 2nd degree My [employer] Patient Portal: [facility] [employer] makes it easy for you to manage your health information online. [facility] [employer] is a free service that provides you instant, secure access to your medical information anytime, anywhere. Sign in or set up your account today at [email or web address] Thank you for allowing us to assist you with your healthcare needs. If you need additional community resources, [employer] can help at https://www.jacky211.org. 211 can assist you in connecting with social programs based on your unique needs and locations. 211 is an anonymous search that can help you locate resources for: Food, Housing, Transportation, Goods, Education and Healthcare. Medications What How Much When Instructions Next Dose New acetaminophen (acetaminophen 500 mg oral tablet) 2 tab(s) by mouth Every 6 hours as needed for fever/mild pain (1-3) New acetaminophen-hydrocodone ([place] 5 mg-325 mg oral tablet) 1 tab(s) by mouth Every 6 hours as needed for as needed for pain Pickup at [id number] Unchanged albuterol (Albuterol (Eqv-Ventolin HFA) 90 mcg/ inh inhalation aerosol) 2 puff(s) Inhalation Every 6 hours as needed for wheezing Unchanged alendronate (alendronate 70 mg oral tablet) 1 tab(s) by mouth Every 7 days Unchanged galcanezumab (Emgality Prefilled Syringe 120 mg/ mL subcutaneous solution) 120 Milligram subcutaneously Every Month Unchanged levothyroxine (levothyroxine 25 mcg (0.025 mg) oral tablet) 1 tab(s) by mouth Once daily Unchanged omega-3 polyunsaturated fatty acids (Fish Oil 1000 mg oral capsule) Unchanged ubiquinone (CoQ10) Unchanged valACYclovir (valACYclovir 1 g oral tablet) See instructions prn, As needed for cold sore Pharmacy Information [facility]: [address] [phone] Allergies Toradolhives azithromycinhives ergotaminehives penicillinsunk What to do next Instructions From Your Doctor CARDIAC PACEMAKER IMPLANT DISCHARGE INSTRUCTIONS Activity: You may walk and join in other low-level activities right away. It is common to feel weak and drained for a few days after your procedure. Alternating your activities with rest will preserve energy. Permanent pacemakers (PPM) are well protected. Most appliances and other small electronics will notbother the settings on your PPM, but strong magnets or electrical cary can turn off or reset yourPPM. If you have a question about an activity, call your caregiver or the toll-free number on your ID card. For two weeks after your procedure: You may not drive. Limit riding in the car. Do not lift small children, pets, or anything heavier than 10 pounds. After two weeks, having a PPM does not mean that you cannot drive. For six weeks after your procedure: Do not lift your elbow on the side of the PPM above the shoulder level. This is important to allow the wires to become stable and heal. This may mean sleeping with a sling on your arm. Using a firearm on the side of the device is never allowed. Other things to avoid include: Opening high cupboards Vacuuming Hanging clothes Racquetball, tennis, golf or swimming Weight lifting Any activity that involves rough contact with the ICD site. Ask your caregiver before restarting any sports Diet: Restart your previous diet (Cardiac prudent). Wound Care: You can remove the bandage the morning after the procedure You may shower on the fifth day after the procedure. On and after the fifth day(5), wash the skin around incision gently with soap and water, being careful not to disturb the steri-strips. Pat dry, do not rub the skin around the site. You may cover the wound with a loose, dry dressing to protect it from things like bra straps, seatbelts or handbags until it is healed. Do not peel off the steri-strips. They will fall off in two to four weeks. If the edges getfrayed you can trim them. Do not allow the wound site to stay under water for a long period of time until it is completely healed, and the steri-strips have fallen off (at least 2 weeks). NO soaking incision site in water until skin is completely healed (at least 2 weeks) Do not use lotions, ointments or powders on the wound site. The wound may be tender for several days. Soreness should get better every day and be gone in a few weeks Please call us right away at the numbers listed below if you have any of the following: Fever greater than 100 Pain thatisgetting worse instead of getting better Swelling Redness or warmth Any drainage 2 Week Wound Check: You should see someone in the Device Clinic [phone] in 2 weeks who will check your wound and the settings on your PPM. Medications: Your caregiver will tell you how to restart your medications. It is important that you take them asinstructed, and do not miss any doses or stop taking them without asking first. If you need a blood thinner, it may have been restarted the day after the procedure. Pacemaker identification card: You will be given an ID card when you get your pacemaker. A card to keep in your wallet or purse will be mailed to you in about 6 weeks. Carry this card with you at all times, and show this card to any caregiver you visit. Also show it to anyone using a security wand. These can hurt your PPM. A medical alert bracelet or necklace should be worn in case of an emergency. Ask your nurse how to get one. Contact Numbers: [facility]: If you notice the following symptoms Contact the [facility] Careline at . If unable to contact your physician and you feel it is an emergency, go to the nearest Emergency Room or call 911 Diet Instructions As Above Activity Instructions Above Follow-Up Appointments Scheduled Follow-Up Appointments Date/Time:[facility]: [facility] Location/Instructions:To ensure your safety ALL patients will be required to change into a gown. Please DO NOT wear undergarments that contain any Metallic components to them, as these have the potential to cause injury. All glucose monitoring devices will be required to be removed. Children under the age of 12 years require adult supervision and may not be left unattended while a parent or guardian is having an exam. Tests Pending None Procedures Performed s/p L side dual chamber pacer- SJM 11/16/2023 Special Instructions Common Emergency Awareness Tips Call 911 immediately if: experiencing any of the warning signs and symptoms of stroke: B.E. F.A.S.T. Balance: is there trouble with walking or coordination Eyes: is there double vision or visual loss Face: Smile, do both sides of face move equally Arm: Raise arms, do both arms move equally Speech: Is speech slurred or inappropriate Time: Time is critical, call 911 immediately Heart Attack Signs Chest discomfort: Most heart attacks involve discomfort in the center of the chest and lasts more than a few minutes, or goes away and comes back. It can feel like uncomfortable pressure, squeezing, fullness or pain. Discomfort in upper body: Symptoms can include pain or discomfort in one or both arms, back, neck, jaw or stomach. Shortness of breath: With or without discomfort. Other signs: Breaking out in a cold sweat, nausea, or lightheaded. Remember, MINUTES DO MATTER. If you experience any of these heart attack warning signs, call to get immediate medical attention! Anesthesia records * Services, CPDI: PERFORM Event Display: Sedation & Analgesia Record Authored Date: Patient Care team information Care Team Personnel Name: MD Glendy, Salvador Cuadra Position: Referring DIRECT Member Role: Primary Care Provider Address: [address] [place] [address] [place] Care Team Related Persons Name: JT LOPEZ
--- OUTSIDE RECORDS SUMMARY | 2023-12-31 04:26 | External Medical Summary | Continuity of Care Document ---
Author Name Unknown Organization [facility] [address] Address [address] [place], [place] [id number] Care Team Providers Care Curriculum Manager Name Role Phone Salvador Pike Primary Care Physician [phone] [id number]s): 11/03/23 - 11/03/23 [facility] [address] [facility] [address] [employer] [facility], [facility] 1 [place], [place] [phone] Encounter Diagnosis Other neutropenia(Final) - Discharge Disposition: Home or Self Care Attending Physician: MD Younger Aderonke Referring Physician: MD Younger Aderonke Allergies, Adverse Reactions, Alerts Substance Criticality Severity Reaction Reaction Severity Status penicillins unk Active Medications Albuterol (Eqv-Ventolin HFA) 90 mcg/inh inhalation aerosol [...] PO, Daily Start Date: 10/28/23 Status: Ordered Rocephin 1 g injection Start: 10/28/23 12:35:00 PM EDT, 1 g =, IV, Daily, x 21 days Start Date: 10/28/23 Status: Ordered valACYclovir 1 g oral tablet Start: 10/28/23 12:32:00 PM EDT, See Instructions, prn, PRN: cold sore Start Date: 10/28/23 Status: Ordered Results Laboratory List Name Date Complete Blood Count w Differential (CBC ,DIFFH) 11/03/23 Request to FAX Report (First Location) ( ACC NO TO BE FAXED) 11/03/23 Vitamin B12 Level (VITAMIN B12) 11/03/23 Most recent to oldest [Reference Range]: 1 Platelet Morphology NORMAL *Unknown* (11/03/23 11:43 AM) Phone No [phone] (11/03/23 11:43 AM) Faxed on: 11/04/23 10:28 (11/03/23 11:43 AM) MPV [9.0-12.2 fL] 10.8 fL (11/03/23 11:43 AM) Immature Gran% 0.0 % (11/03/23 11:43 AM) Neut% 54.5 % (11/03/23 11:43 AM) Lymph% 30.3 % (11/03/23 11:43 AM) [place]% 13.4 % (11/03/23 11:43 AM) Baso% 1.8 % (11/03/23 11:43 AM) Eos% 0.0 % (11/03/23 11:43 AM) Immat Gran, Abs [0.0-0.4 K/uL] 0.00 K/uL (11/03/23 11:43 AM) Neut, Abs [2.0-7.7 K/uL] 1.05 K/uL *LOW* (11/03/23 11:43 AM) Lymph, Abs [1.0-3.4 K/uL] 0.58 K/uL *LOW* (11/03/23 11:43 AM) [place], Abs [0-1.0 K/uL] 0.26 K/uL (11/03/23 11:43 AM) Baso, Abs [0-0.1 K/uL] 0.03 K/uL (11/03/23 11:43 AM) Eos, Abs [0-0.5 K/uL] 0.00 K/uL (11/03/23 11:43 AM) Type of Diff: MANUAL *Unknown* (11/03/23 11:43 AM) RBC Morphology NORMAL *Unknown* (11/03/23 11:43 AM) RDW [11.5-14.2 %] 14.0 % (11/03/23 11:43 AM) B12 [211-946 pg/mL] 433 pg/mL (11/03/23 11:43 AM) Hct [35-44 %] 42.1 % (11/03/23 11:43 AM) Hgb [11.7-15.0 g/dL] 13.9 g/dL (11/03/23 11:43 AM) MCH [28-33 pg] 30.3 pg (11/03/23 11:43 AM) MCHC [32-36 g/dL] 33.0 g/dL (11/03/23 11:43 AM) MCV [81-96 fL] 91.9 fL (11/03/23 11:43 AM) Plts [150-350 K/uL] 159 K/uL (11/03/23 11:43 AM) RBC [3.90-5.00 M/uL] 4.58 M/uL (11/03/23 11:43 AM) WBC [4.0-10.4 K/uL] 1.92 K/uL *LOW* (11/03/23 11:43 AM) 1Result Comment: Testing Performed By: Dept of Pathology [facility] [address], [address], [place] [address] Social History Social History Type Response Smoking Status Never smoked cigaret scott Sex Sex Representation Female (finding) Patient Care team information Care Team Personnel Name: MD Pike John E Position: Referring DIRECT Member Role: Primary Care Provider Address: [address] [place] [facility] [place] [address]
--- OUTSIDE RECORDS SUMMARY | 2023-12-31 04:26 | External Medical Summary | Continuity of Care Document ---
Author Name Unknown Organization [facility] [address] Address [address] [place], [place] [address] Care Team Providers Care Glass Grinder Name Role Phone Salvador Pike Primary Care Physician [phone] [id number] Date(s): 11/08/23 - 11/08/23 [facility] [address] [facility] 303 [facility] 1 [place], [place] [phone] Encounter Diagnosis Other neutropenia(Final) - Discharge Disposition: [...] Complete Blood Count w Differential (CBC ,DIFFH) 11/08/23 Request to FAX Report (First Location) ( ACC NO TO BE FAXED) 11/08/23 Most recent to oldest [Reference Range]: 1 Platelet Morphology NORMAL *Unknown* (11/08/23 8:57 AM) Phone No [phone] (11/08/23 8:57 AM) Faxed on: 11/09/23 11:19 (11/08/23 8:57 AM) MPV [9.0-12.2 fL] 10.6 fL (11/08/23 8:57 AM) Immature Gran% 0.0 % (11/08/23 8:57 AM) Neut% 45.1 % (11/08/23 8:57 AM) Lymph% 38.1 % (11/08/23 8:57 AM) [place]% 8.9 % (11/08/23 8:57 AM) Baso% 4.4 % (11/08/23 8:57 AM) Eos% 3.5 % (11/08/23 8:57 AM) Immat Gran, Abs [0.0-0.4 K/uL] 0.00 K/uL (11/08/23 8:57 AM) Neut, Abs [2.0-7.7 K/uL] 1.34 K/uL *LOW* (11/08/23 8:57 AM) Lymph, Abs [1.0-3.4 K/uL] 1.14 K/uL (11/08/23 8:57 AM) [place], Abs [0-1.0 K/uL] 0.27 K/uL (11/08/23 8:57 AM) Baso, Abs [0-0.1 K/uL] 0.13 K/uL *HI* (11/08/23 8:57 AM) Eos, Abs [0-0.5 K/uL] 0.10 K/uL (11/08/23 8:57 AM) Type of Diff: MANUAL *Unknown* (11/08/23 8:57 AM) RBC Morphology NORMAL *Unknown* (11/08/23 8:57 AM) RDW [11.5-14.2 %] 13.8 % (11/08/23 8:57 AM) Hct [35-44 %] 43.7 % (11/08/23 8:57 AM) Hgb [11.7-15.0 g/dL] 14.2 g/dL (11/08/23 8:57 AM) MCH [28-33 pg] 29.4 pg (11/08/23 8:57 AM) MCHC [32-36 g/dL] 32.5 g/dL (11/08/23 8:57 AM) MCV [81-96 fL] 90.5 fL (11/08/23 8:57 AM) Plts [150-350 K/uL] 208 K/uL (11/08/23 8:57 AM) RBC [3.90-5.00 M/uL] 4.83 M/uL (11/08/23 8:57 AM) WBC [4.0-10.4 K/uL] 2.98 K/uL *LOW* (11/08/23 8:57 AM) 1Result Comment: Testing Performed By: Dept of Pathology [facility] [address], [address], [place] [address] Social History Social History Type Response Smoking Status Never smoked cigaret scott Sex Sex Representation Female (finding) Patient Care team information Care Team Personnel Name: MD Pike John E Position: Referring DIRECT Member Role: Primary Care Provider Address: [address] [place] [address]
--- OUTSIDE RECORDS SUMMARY | 2023-12-31 04:26 | External Medical Summary | Summary of Care ---
Author Name Unknown Organization [facility] Address [address] [place] [address] Phone [phone] Care Team Providers Care Sheet Rock Nailer Name Role Phone Glendy RABAGO MD, Salvador Cuadra Primary Care Provider Encounter Details Date Type Department Care Team (Late st Contact Info) Description 10/19/2023 Result Scan Unspecified Department Salvador Pike III, MD [address] [place] [facility] [place] [address] <No scans attached> Allergies Active Allergy Reactions Criticality Noted Date Comments Azithromycin Hives High 07/03/2018 Dihydroergotamine High 07/03/2018 Other reaction(s): "THROAT SHUTS DOWN" Ergotamine 06/10/2001 DHE Ketorolac Tromethamine 01/08/2002 hives Penicillins 02/08/2009 rash Poison Floresita Extract Rash 06/12/2015 Azithromycin Hives 12/20/2008 documented as of this encounter (statuses as of 11/05/2023) Medications Medication Sig Dispensed Refills Start Date End Date Status LYSINE HCL 500 MG PO TABS Take by mouth. 02/01/2013 Active SENNA S 8.6-50 MG PO TABS one tablet twice daily 02/01/2013 Active Multiple Vitamins-Minerals (MULTIVITAMIN GUMMIES ADULTS) CHEW Take by mouth. Active fluticasone (FLONASE) 50 MCG/ACT nasal sprayIndications:Al lergic rhinitis Administer 1 [place] into nostril daily. 16 g 5 06/12/2015 [...] Emgality 120 MG/ML Subcutaneous Solution Prefilled Syringe (Galcanezumab-[facility]) INJECT 1 ML UNDER THE SKIN ONCE [...] Additional Information Patient not taking.Reported on 10/26/2023 documented as of this encounter (statuses as of 11/05/2023) Active Problems Problem Noted Date Diagnosed Date [...] as of this encounter (statuses as of 11/05/2023) Resolved Problems Problem Noted Date Diagnosed Date [...] as of this encounter (statuses as of 11/05/2023) Immunizations Name Administration Dates Next Due COVID-19 [...] 05/19/2023 Does the household have a re lar source of income? (Household - for ages [...] 18 years and over) Not on file 4 Are you (or your family) griselda eless [...] Care Team (Late st Contact Info) Description 11/18/2023 11:00 AM EDT Office Visit Family Practice [facility] [address] [place] [address] Salvador Pike III, MD [address] [place] [address] Scheduled Procedures Name Priority Associated Diagnoses Date/Ti [...] 01/13/2028 01/12/2023, 04/2021, 07/12/2020, Additional history exists DTap/Tdap Vaccines (4 - Td or Tdap) 09/12/2029 09/13/2019, 07/18/2009, 04/01/2000 VITAMIN D LEVEL ONCE IN A LIFETIME-USE SMARTSET# [id number] Completed 01/12/2023, 07/12/2020, 09/05/2018, Additional history exists [...] Procedure Name Priority Date/Time Associated Diagnosis Comments PATHOLOGY SCANNED RESULT 10/19/2023 documented in this encounter Results * PATHOLOGY SCANNED RESULT (10/19/2023) 10/19/2023 Salvador Pike III, MD PATHOLOGY documented in this encounter Advance Directives * Full Code (Latest Code Status on File) Date Activated Date Inactivated Comments 06/07/2011 11:19 PM 06/10/2011 3:09 PM This order r eflects the patients wishes and were consensually agreed upon. Care Teams Sheet Rock Nailer Relationship Specialty Start Date End Date Salvador Pike III, MD [address] [place] [address] PCP - General Family Medicine 12/25/20 documented as of this encounter
--- OUTSIDE RECORDS SUMMARY | 2023-12-31 04:26 | External Medical Summary | Summary of Care ---
Author Name Unknown Organization [facility] Address [address] [place] [address] Phone [phone] Care Team Providers Care Galley Boy Name Role Phone Glendy RABAGO MD, Salvador Cuadra Primary Care Provider [phone] Encounter Details Date Type Department Care Team (Late st Contact Info) Description 11/08/2023 Orders Only Family Practice [facility] [address] [facility] [place] [address] Salvador Pike III, MD [address] [facility] [address] Allergies Active Allergy Reactions Criticality Noted Date Comments Azithromycin Hives High 07/03/2018 Dihydroergotamine High 07/03/2018 Other reaction(s): "THROAT SHUTS DOWN" Ergotamine 06/10/2001 DHE Ketorolac Tromethamine 01/08/2002 hives Penicillins 02/08/2009 rash Poison Floresita Extract Rash 06/12/2015 Azithromycin Hives 12/20/2008 documented as of this encounter (statuses as of 11/08/2023) Medications Medication Sig Dispensed Refills Start Date End Date Status LYSINE HCL 500 MG PO TABS Take by mouth. 02/01/2013 Active SENNA S 8.6-50 MG PO TABS one tablet twice daily 02/01/2013 Active Multiple Vitamins-Minerals (MULTIVITAMIN GUMMIES ADULTS) CHEW Take by mouth. Active fluticasone (FLONASE) 50 MCG/ACT nasal sprayIndications:Al lergic rhinitis Administer 1 [place] into nostril daily. 16 g 5 06/12/2015 [...] Emgality 120 MG/ML Subcutaneous Solution Prefilled Syringe (Galcanezumab-[facility]) INJECT 1 ML UNDER THE [...] Inject into a large muscle daily. Active Meperidine HCl 100 MG/ML Injection Solution (Demerol)Indication s:Common migraine with intractable migraine Inject 100 mg into a large muscle every 4 hours as needed for Headache. 1 mL 11/04/2023 Active SUMAtriptan Succinate 100 MG Oral TabletIndications:M igraine without aura and without status migrainosus, not intractable,Migrain e with aura and without status migrainosus, not intractable TAKE 1 TABLET AT ONSET OF MIGRAINE. MAY REPEAT IN 2 HOUR BUT NO MORE THAN 2 TABLETS IN 24 HOURS. 9 Tablet 5 11/03/2023 Active documented as of this encounter (statuses as of 11/08/2023) Active Problems Problem Noted Date Diagnosed Date [...] as of this encounter (statuses as of 11/08/2023) Resolved Problems Problem Noted Date Diagnosed Date [...] as of this encounter (statuses as of 11/08/2023) Immunizations Name Administration Dates Next Due COVID-19 [...] No 05/19/2023 Does the household have a [facility] source of income? (Household - for [...] 11:00 AM EDT Office Visit Family Practice [facility] [address] [place] [address] Salvador Pike III, MD [address] [place] [address] Scheduled Procedures Name Priority Associated Diagnoses Date/Ti [...] 01/12/2023, 11/0 04/2021, 07/12/2020, Additional history exists DTap/Tdap Vaccines (4 - Td or Tdap) 09/12/2029 09/13/2019, 07/18/2009, 04/01/2000 VITAMIN D LEVEL ONCE IN A LIFETIME-USE SMARTSET# [id number] Completed 01/12/2023, 07/12/2020, 09/05/2018, Additional history exists [...] Procedure Name Priority Date/Time Associated Diagnosis Comments CHEMISTRY-OUTSIDE Routine 11/03/2023 documented in this encounter Results * (ABNORMAL) CHEMISTRY-OUTSIDE (11/03/2023) Not all results display below - see scan for full detail OUTSIDE LAB (SEE SCANNED REPORT) Comment:SCAN INCLUDES: CBCD, CMP CREATININE-OUTSID E LAB 0.79 0.6 - 1.2 MG/DL OUTSIDE LAB (SEE SCANNED REPORT) EGFR-OUTSIDE LAB 81.9 ML/MIN OUT SIDE LAB (SEE SCANNED REPORT) POTASSIUM-OUTSIDE LAB 4.4 3.5 - 5.1 MMOL/L OUTSIDE LAB (SEE SCANNED REPORT) GLUCOSE-OUTSIDE LAB 101(A) 70 - 99 MG/DL OUTSIDE LAB (SEE SCANNED REPORT) HOURS FASTING OUTSID E LAB (SEE SCANNED REPORT) TRIGLYCERIDES-OUT SIDE LAB OUTSIDE LAB (SEE SCANNED REPORT) CHOLESTEROL-OUTSI DE LAB OUTSIDE LAB (SEE SCANNED REPORT) HDL-OUTSIDE LAB OUTS CEDRICK LAB (SEE SCANNED REPORT) CHOL/HDL RATIO-OUTSIDE LAB OUTSIDE LA B (SEE SCANNED REPORT) LDL (CALCULATED)-OUTS C[facility]ICK LAB OUTSIDE LAB (SEE SCANNED REPORT) LDL (DIRECT MEASURE)-OUTSIDE LAB OUTSIDE LAB (SEE SCANNED REPORT) HEMOGLOBIN, I0P-PVMJIAK LAB OUTSIDE LAB (SEE SCANNED REPORT) PHOSPHORUS-OUTSID E LAB OUTSIDE LAB (SEE SCANNED REPORT) PTH-OUTSIDE LAB OUTS CEDRICK LAB (SEE SCANNED REPORT) MICROALBUMIN RATIO-OUTSIDE LAB OUTSIDE LA B (SEE SCANNED REPORT) PROTEIN, UA-OUTSIDE LAB OUTSIDE LAB (SEE SCANNED REPORT) HGB 13.1 12.0 - 16.0 G/DL OUTSIDE LAB (SEE SCANNED REPORT) 11/03/2023 Tonio Espitia MD LABORATORY OUTSIDE LAB (SEE SCANNED REPORT) documented in this encounter Advance Directives * Full Code (Latest Code Status on File) Date Activated Date Inactivated Comments 06/07/2011 11:19 PM 06/10/2011 3:09 PM This order r eflects the patients wishes and were consensually agreed upon. Care Teams Galley Boy Relationship Specialty Start Date End Date Salvador Pike III, MD [address] [place] [address], [place] [address] PCP - General Family Medicine 12/25/20 documented as of this encounter
--- OUTSIDE RECORDS SUMMARY | 2023-12-31 04:26 | External Medical Summary | Continuity of Care Document ---
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(Final) - Lyme disease, unspecified(Final) - Atrioventricular block, second degree(Final) - Discharge Disposition: Home or Self Care Attending Physician: LING Curry Sarah A Referring Physician: LING Curry Sarah A Allergies, Adverse Reactions, Alerts Substance Criticality Severity [...] Status: Ordered Results Laboratory List Name Date Basic Metabolic Panel (BASIC METAB PANEL ) 11/08/23 Most recent to oldest [Reference Range]: 1 eGFR CKD-EPI [>60 mL/min/1.73 m2] 81 mL/ min/1.73 m2 1 (11/08/23 8:57 AM) Estimated CrCl 62.96 mL/min (11/08/23 12:57 PM) Anion Gap [5-14 mmol/L] 7 mmol/L (11/08/23 8:57 AM) BUN [7-20 mg/dL] 19 mg/dL (11/08/23 8:57 AM) Ca [8.4-10.2 mg/dL] 9.9 mg/dL (11/08/23 8:57 AM) Cl- [96-107 mmol/L] 102 mmol/L (11/08/23 8:57 AM) HCO3 [22-30 mmol/L] 30 mmol/L (11/08/23 8:57 AM) Cret [0.60-1.00 mg/dL] 0.83 mg/dL (11/08/23 8:57 AM) Glu [74-106 mg/dL] 80 mg/dL (11/08/23 8:57 AM) K [3.5-5.1 mmol/L] 4.7 mmol/L (11/08/23 8:57 AM) Na [137-145 mmol/L] 139 mmol/L (11/08/23 8:57 AM) 1Result Comment: Testing Performed By: [facility] [address], [address], [place] [address] Social History Social History Type Response Smoking Status Never smoked cigaret scott Sex Sex Representation Female (finding) Patient Care team information Care Team Personnel Name: MD Glendy, Salvador Cuadra Position: Referring DIRECT Member Role: Primary Care Provider Address: [address] [place] [address]
--- OUTSIDE RECORDS SUMMARY | 2023-12-31 04:27 | External Medical Summary | Summary of Care ---
Author Name Unknown Organization [facility] Address [address] [place] [address] Phone [phone] Care Team Providers Care Registered Nurse Maternity Name Role Phone Glendy RABAGO MD, Salvador Cuadra Primary Care Provider [phone] Reason for Visit * Reason Onset Date Comments Hospital Follow-Up Hospital Follow-Up 10/26/2023 Encounter Details Date Type Department Care Team (Late st Contact Info) Description 10/26/2023 11:40 AM EDT Office Visit [facility] [address] [facility] [place] [address] Salvador Pike III, MD 200 [place] [address] Hospital discharge follow-up*; Lyme carditis; Heart block; Neutropenia, unspecified type (HCC) Allergies Active Allergy Reactions Criticality Noted Date Comments Azithromycin Hives High 07/03/2018 Dihydroergotamine High 07/03/2018 Other reaction(s): "THROAT SHUTS DOWN" Ergotamine 06/10/2001 DHE Ketorolac Tromethamine 01/08/2002 hives Penicillins 02/08/2009 rash Poison Florseita Extract Rash 06/12/2015 Azithromycin Hives 12/20/2008 documented as of this encounter (statuses as of 10/29/2023) Medications Medication Sig Dispensed Refills Start Date End Date Status LYSINE HCL 500 MG PO TABS Take by mouth. 02/01/2013 Active SENNA S 8.6-50 MG PO TABS one tablet twice daily 02/01/2013 Active Multiple Vitamins-Minerals (MULTIVITAMIN GUMMIES ADULTS) CHEW Take by mouth. Active fluticasone (FLONASE) 50 MCG/ACT nasal sprayIndications:Al lergic rhinitis Administer 1 [place] into nostril daily. 16 g 5 06/12/2015 [...] Emgality 120 MG/ML Subcutaneous Solution Prefilled Syringe (Galcanezumab-[facility]) INJECT 1 ML UNDER THE SKIN ONCE [...] Additional Information Patient not taking.Reported on 10/26/2023 Meperidine HCl 100 MG/ML Injection Solution (Demerol)Indication s:Common migraine with intractable migraine Inject 100 mg into a large muscle every 4 hours as needed for Headache. 1 mL 10/21/2023 Active B-12 1000 MCG Oral Tablet Take by mouth. Active cefTRIAXone 250 mg/mL IJ Recon Soln Inject into a large muscle daily. Active documented as of this encounter (statuses as of 10/29/2023) Active Problems Problem Noted Date Diagnosed Date [...] as of this encounter (statuses as of 10/29/2023) Resolved Problems Problem Noted Date Diagnosed Date [...] as of this encounter (statuses as of 10/29/2023) Immunizations Name Administration Dates Next Due COVID-19 [...] Sign Reading Time Taken Comments Blood Pressure - - Pulse - - Temperature 36.4 C (97.5 F) 10/26/2023 11:59 AM E DT Respiratory Rate - - Oxygen Saturation - - Inhaled Oxygen Concentration - - Weight 65.8 kg (145 lb) 10/26/2023 11:59 AM EDT Height - - Body Mass Index 24.89 06/28/2023 8:08 AM EDT documented in this encounter Progress Notes * Salvador Pike III, MD - 10/26/2023 1:12 PM EDT Subjective: America Bo is a 58 year old female. 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 on treadmill exam prior to admission developed complete heart block has now been on Rocephin for 11 days had a prolonged course of doxycycline in July these symptoms began in August currently tires out easily no actual chest pain does have some dyspnea on exertion cardiology consult Infectious Disease consult reviewed has had neutropenia Hematology-Oncology notes reviewed to complete 21 day course of Rocephin PMH: Patient Active Problem List Diagnosis Allergic rhinitis Vertigo Neutropenia (HCC) Constipation COMMON MIGRAINE WITH INTRACTABLE MIGRAINE, SO STATED Calculus of kidney ADVANCE DIRECTIVE INFORMATION Dyspnea and respiratory abnormality PANIC DISORDER Patent foramen ovale Abdominal pain, generalized Hydronephrosis, left Calcium oxalate renal calculi Other constipation Hyperlipidemia Controlled substance agreement signed Other osteoporosis without current pathological fracture Pre-diabetes 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 fluticasone (FLONASE) 50 MCG/ACT nasal spray Administer 1 [place] into nostril daily. 16 g 5 Folic Acid 400 MCG Tablet Take 1 Tablet by mouth in the morning. Ondansetron HCl 4 MG Oral Tablet Take 1 Tablet (4 mg) by mouth every 6 hours as needed for Nausea. 30 Tablet 0 Meclizine HCl 25 MG Oral Tablet (Antivert) Take 1 Tablet by mouth 3 times a day as needed for Dizziness. 30 Tablet 1 SUMAtriptan Succinate 100 MG Oral Tablet TAKE 1 TABLET AT ONSET OF MIGRAINE. MAY REPEAT IN 2 HOUR BUT NO MORE THAN 2 TABLETS IN 24 HOURS. 9 Tablet 5 Premarin 0.625 MG/GM Vaginal Cream (Estrogens Conjugated) Insert vaginally as directed twice weeklyat bedtime(mon and thurs) 90 g 3 Emgality 120 MG/ML Subcutaneous Solution Prefilled Syringe (Galcanezumab-gn) INJECT 1 ML UNDER THE SKIN ONCE MONTHLY 1 mL 9 Pantoprazole Sodium 40 MG Oral Tablet Delayed Release (Protonix) Tamsulosin HCl 0.4 MG Oral Capsule (Flomax) valACYclovir HCl 1 GM Oral Tablet (Valtrex) Take 2 Tablets by mouth in the morning and 2 Tablets before bedtime. for cold sores. 4 Tablet 11 Ventolin HFA 108 (90 Base) MCG/ACT Inhalation Aerosol Solution Inhale 2 Puffs by mouth every 4 hours as needed for Wheezing or Cough. 18 g 0 LORazepam 1 MG Oral Tablet (Ativan) Take 1 Tablet by mouth 3 times a day as needed for Anxiety. 5 Tablet 0 Levothyroxine Sodium 25 MCG Oral Tablet (Levoxyl) Take 1 Tablet by mouth in the morning. Mon-sat 2 tabs wednesday(at least 30 min prior to breakfast or other meds). 105 Tablet 2 Ibuprofen 200 MG Oral Tablet (Motrin) Take 2 Tablets by mouth every 6 hours as needed. Alendronate Sodium 70 MG Oral Tablet (Fosamax) Take 1 tablet by mouth weekly with 8 oz of water 30 min before the first meal of the day, remain upright for 30 min after taking tablet 12 Tablet 1 Meperidine HCl 100 MG/ML Injection Solution (Demerol) Inject 100 mg into a large muscle every 4 hours as needed for Headache. 1 mL 0 B-12 1000 MCG Oral Tablet Take by mouth. cefTRIAXone 250 mg/mL IJ Recon Soln Inject into a large muscle daily. LYSINE HCL 500 MG PO TABS Take by mouth. (Patient not taking: Reported on 10/26/2023) vitamin c (ASCORBIC ACID) 500 MG Tablet Take 1 Tablet by mouth in the morning and 1 Tablet before bedtime. (Patient not taking: Reported on 10/26/2023) zinc gluconate 50 MG Tablet Take 1 Tablet by mouth in the morning. (Patient not taking: Reported on10/26/2023) Selenium 200 MCG CAPS Take by mouth. (Patient not taking: Reported on 10/26/2023) Cholecalciferol 5000 units Capsule Take 1 Capsule by mouth in the morning. (Patient not taking: Reported on 10/26/2023) Ibuprofen-Famotidine 800-26.6 MG Oral Tablet Take 1 Tab by mouth as needed. (Patient not taking: Reported on 10/26/2023) Doxycycline Hyclate 100 MG Oral Capsule Take 1 Capsule by mouth in the morning and 1 Capsule beforebedtime. (Patient not taking: Reported on 10/26/2023) 60 Capsule 0 No current facility-administered medications for this visit. Review of patient's allergies indicates: Allergen Reactions Azithromycin Hives Dihydroergotamine Other reaction(s): "THROAT SHUTS DOWN" Ergotamine DHE Ketorolac Tromethamine hives Penicillins rash Poison Floresita Extract [Poison Floresita Extract] Rash Zithromax [Azithromycin] Hives Past Medical History: Diagnosis Date Asthma, non-allergic Calculus of kidney Dr M[place] [place] COMMON MIGRAINE WITH INTRACTABLE MIGRAINE, SO STATED 01/17/[address] [place] ([place]) Other osteoporosis without current pathological fracture 01/03/2019 Patent foramen ovale 02/23/2007 Past Surgical History: Procedure Laterality Date COLONOSCOPY, DIAGNOSTIC (RECTUM) 12/21/2014 normal, repeat 10 yrs/COLONOSCOPY FLEXIBLE PROXIMAL DIAGNOSTIC performed by Shannan Dalton DO at ENDOSCOPY [facility] CV ECHO, JON INTRAOPERATIVE 11/08/2006 ECHOCARDIOGRAPHY, TRANSESOPHAGEAL; INCLUDING PROBE PLACEMENT, IMAGE ACQUISITION, INTERPRETATION ANDREPORT performed by FCO NUNEZ IV at OR [facility] CYSTOSCOPY 07/10/2011 CYSTOURETHROSCOPY performed by LISA LI at OR [facility] CYSTOSCOPY/INSERTION OF STENT 06/08/2011 CYSTOURETHROSCOPY WITH INSERTION URETERAL STENT performed by LISA LI at OR [facility] CYSTOSCOPY/INSERTION OF STENT 07/10/2011 CYSTOURETHROSCOPY WITH INSERTION URETERAL STENT performed by LISA LI at OR [facility] CYSTOURETERO W/LITHOTRIPSY 07/10/2011 CYSTOURETHROSCOPY URETEROSCOPY WITH LITHOTRIPSY performed by LISA LI at OR [facility] EGD, FLEXIBLE, DIAGNOSTIC 06/30/2023 biopsies show mild reflux/ESOPHAGOGASTRODUODENOSCOPY (EGD), FLEXIBLE, TRANSORAL, DIAGNOSTIC performed by Logan Rodriguez DO at ENDOSCOPY [facility] FRAGMENT KIDNEY STONE BY SHOCK WAVE PARTIAL HYSTERECTOMY age 28 Ovaries left in POST VOID RESIDUAL BLADDER US (PHYSICIAN ONLY) 03/27/2002 20ml REMOVAL OF OVARY(S) Right oophorectomy due to torsion. REMOVAL OF OVARY(S) 03/01/2001 Left REMOVAL OF TONSILS, UNDER AGE 11 URETHROCYSTOGRAPHY INJECTION RETROGRADE 07/10/2011 INJECTION PROCEDURE FOR RETROGRADE URETHROCYSTOGRAPHY performed by LISA LI at [facility] Objective: The patient is a 58 year old female Temp 36.4 C (97.5 F) | Wt 65.8 kg (145 lb) | LMP 11/09/2017 | BMI 24.89 kg/m | BSA 1.72 m General: alert, healthy, and no distress Eye Exam: PERRLA, extraocular movements intact, conjunctiva are pink and non- injected, sclera clear Oropharynx: no exudate, no erythema, lips, buccal mucosa, and tongue normal, and mucous membranes are moist Heart: regular rate & rhythm, no murmur, and no gallops Lungs: lungs clear to auscultation Extremities: no edema, no clubbing, no cyanosis ASSESSMENT: (Z09) Hospital discharge follow-up (primary encounter diagnosis) Lyme carditis Heart block neutropenia PLAN: Finish out Roxann has cardiology and hematology follow-up Total time 48 minutes Follow up as needed. Salvador Pike III, MD documented in this encounter Plan of Treatment Upcoming Encounters Date Type Department Care Team (Late st Contact Info) Description 11/18/2023 11:00 AM EDT Office Visit Family Practice [facility] [address] [place] [address] Salvador Pike III, MD 200 [place] [address] Scheduled Procedures Name Priority Associated Diagnoses Date/Ti [...] Scan 12/23/2020 12/23/2018 COVID-19 Vaccine (4 - 2022- season) 2022 01/10/2021, 03/27/2020, 02/28/2020 Influenza Vaccine [...] D LEVEL ONCE IN A LIFETIME-USE SMARTSET# [id number] Completed 01/12/2023, 07/12/2020, 09/05/2018, Additional history exists [...] as of this encounter Visit Diagnoses Diagnosis Hospital discharge follow-up- Primary Other follow-up examination Lyme carditis Lyme disease Heart block Conduction disorder, unspecified Neutropenia, unspecified type (HCC) documented in this encounter Advance Directives * Full Code (Latest Code Status on File) Date Activated Date Inactivated Comments 06/07/2011 11:19 PM 06/10/2011 3:09 PM This order r eflects the patients wishes and were consensually agreed upon. Care Teams Registered Nurse Maternity Relationship Specialty Start Date End Date Salvador Pike III, MD [address] [facility] [place] [address] PCP - General Family Medicine 12/25/20 documented as of this encounter
--- OUTSIDE RECORDS SUMMARY | 2023-12-31 04:27 | External Medical Summary | Continuity of Care Document ---
Author Name Unknown Organization [place] [address] [facility] Address [address], [place] [id number] Care Team Providers Care Neonatal Intensive Care Nurse Name Role Phone Salvador Pike Primary Care Physician [phone] [id number] Date([facility] 10/28/23 - 10/28/23 [facility] [address], [address] [place] [address] [phone] Discharge Disposition: Home or Self Care Attending Physician: MD Mukul, Jaimie León Referring Physician: LING Curry Sarah A Allergies, [...] Start Date: 10/28/23 Status: Ordered Mental Status 10/28/23 Barriers to Learning one year None evide nt Mandatory Health Literacy Documentation Yes Health Literacy Communication Barriers N ever Primary Language Greenlandic Vital Signs Most recent to oldest [Reference Range]: 1 2 3 Patient Weight 59.8 kg (10/28/23 12:45 PM) Heart Rate 80 bpm (10/28/23 12:46 PM) 86 bpm (10/28/23 12:45 PM) 93 bpm (10/28/23 12:40 PM) Respiratory Rate 18 br/min (10/28/23 12:40 PM) Blood Pressure 122/82mmHg (10/28/23 12:46 PM) 118/82mmHg (10/28/23 12:45 PM) 117/78mmHg (10/28/23 12:40 PM) Cuff Pulse Pressure 40 mmHg (10/28/23 12:46 PM) 36 mmHg (10/28/23 12:45 PM) 39 mmHg (10/28/23 12:40 PM) Social History Social History Type Response Smoking Status Never smoked cigaret scott Sex Sex Representation Female (finding) Patient Care team information Care Team Personnel Name: MD Glendy, Salvador Cuadra Position: Referring DIRECT Member Role: Primary Care Provider Address: [address] [place] [address]
--- OUTSIDE RECORDS SUMMARY | 2023-12-31 04:27 | External Medical Summary | Summary of Care ---
Author Name Unknown Organization [facility] Address [address] [place] [address] Phone [phone] Care Team Providers Care Pillow Agent Name Role Phone Glendy RABAGO MD, Salvador Cuadra Primary Care Provider [phone] Reason for Visit * Reason Onset Date Comments Medication Refill 11/01/2023 Encounter Details Date Type Department Care Team (Late st Contact Info) Description 11/01/2023 Refill [facility] [address] [facility] [place] [address] Jenna Erickson PA-C [address] [facility] [place] [address] Migraine without aura and without status migrainosus, not intractable; Migraine with aura and without status migrainosus, not intractable Allergies Active Allergy Reactions Criticality Noted Date Comments Azithromycin Hives High 07/03/2018 Dihydroergotamine High 07/03/2018 Other reaction(s): "THROAT SHUTS DOWN" Ergotamine 06/10/2001 DHE Ketorolac Tromethamine 01/08/2002 hives Penicillins 02/08/2009 rash Poison [place] Extract Rash 06/12/2015 Azithromycin Hives 12/20/2008 documented as of this encounter (statuses as of 11/03/2023) Medications Medication Sig Dispensed Refills Start Date End Date Status LYSINE HCL 500 MG PO TABS Take by mouth. 02/01/2013 Active SENNA S 8.6-50 MG PO TABS one tablet twice daily 02/01/2013 Active Multiple Vitamins-Minerals (MULTIVITAMIN GUMMIES ADULTS) CHEW Take by mouth. Active fluticasone (FLONASE) 50 MCG/ACT nasal sprayIndications:A llergic rhinitis Administer 1 [place] into nostril daily. 16 g 5 06/12/2015 [...] Emgality 120 MG/ML Subcutaneous Solution Prefilled Syringe (Galcanezumab[facility] ) INJECT 1 ML UNDER THE SKIN [...] 10/26/2023 Meperidine HCl 100 MG/ML Injection Solution (Demerol)Indicatio [...] 24 HOURS. 9 Tablet 5 11/03/2023 Active SUMAtriptan Succinate 100 MG Oral TabletIndications: Migraine without aura and without status migrainosus, not intractable,Migrai ne with aura and without status migrainosus, not intractable TAKE 1 TABLET AT ONSET OF MIGRAINE. MAY REPEAT IN 2 HOUR BUT NO MORE THAN 2 TABLETS IN 24 HOURS. 9 Tablet 5 02/10/2023 4 Discontinue d(Refill) documented as of this encounter (statuses as of 11/03/2023) Active Problems Problem Noted Date Diagnosed Date [...] as of this encounter (statuses as of 11/03/2023) Resolved Problems Problem Noted Date Diagnosed Date [...] as of this encounter (statuses as of 11/03/2023) Immunizations Name Administration Dates Next Due COVID-19 [...] encounter Miscellaneous Notes * Telephone Encounter - Nena Cesar RPh - 11/03/2023 1:54 PM EDTSigned Prescriptions: Disp Refills SUMAtriptan Succinate 100 MG Oral Tablet 9 Tabl*5 Sig: TAKE 1 TABLET AT ONSET OF MIGRAINE. MAY REPEAT IN 2 HOUR BUT NO MORE THAN 2 TABLETS IN 24 HOURS.Authorizing Provider: JENNA ERICKSON AOrdering User: NENA CESAR documented in this encounter Plan of Treatment Upcoming Encounters Date Type Department Care Team (Late st Contact Info) Description 11/18/2023 11:00 AM EDT Office Visit Family Practice [facility] [address] [facility] [place] [address] Glendy RABAGO, Salvador Cuadra MD [facility] [place] [address] Scheduled Procedures Name Priority Associated Diagnoses Date/Ti [...] 01/04/2013, Additional history exists HbA1c 01/13/2024 01/12/2023, 0 04/2021, 08/02/2009, Additional history exists Depression Screening 03/23/2024 03/23/2023 TSH 09/27/2024 09/28/2023, 040 04/2023, 03/24/2023, Additional history exists Colonoscopy 12/21/2024 12/21/2014, 12/21/2014 Colorectal Cancer Screening 12/21/2024 Lipid Panel 01/13/2028 01/12/2023, 04/2021, 07/12/2020, Additional history exists DTap/Tdap Vaccines (4 - Td or Tdap) 09/12/2029 09/13/2019, 07/18/2009, 04/01/2000 VITAMIN D LEVEL ONCE IN A LIFETIME-USE SMARTSET# [id number] Completed 01/12/2023, 07/12/2020, 09/05/2018, Additional history exists [...] of this encounter Visit Diagnoses Diagnosis Migraine without aura and without status migrainosus, not intractable Migraine without aura, without mention of intractable migraine without mention of status migrainosus Migraine with aura and without status migrainosus, not intractable Migraine with aura, without mention of intractable migraine without mention of status migrainosus documented in this encounter Advance Directives * Full Code (Latest Code Status on File) Date Activated Date Inactivated Comments 06/07/2011 11:19 PM 06/10/2011 3:09 PM This order r eflects the patients wishes and were consensually agreed upon. Care Teams Pillow Agent Relationship Specialty Start Date End Date Salvador Pike III, MD [address] [place] [address] PCP - General Family Medicine 12/25/20 documented as of this encounter
--- OUTSIDE RECORDS SUMMARY | 2023-12-31 04:27 | External Medical Summary | Summary of Care ---
Author Name Unknown Organization [facility] Address [address] [place] [address] Phone [phone] Care Team Providers Care Banquet Pilot Name Role Phone Glendy RABAGO MD, Salvador Cuadra Primary Care Provider Encounter Details Date Type Department Care Team (Late st Contact Info) Description 10/16/2023 Result Scan Unspecified Department <No scans attached> [...] MCG/ACT nasal sprayIndications:Al lergic rhinitis Administer 1 [place] into nostril daily. 16 g 5 06/12/2015 [...] Emgality 120 MG/ML Subcutaneous Solution Prefilled Syringe (Galcanezumab-[facility]) INJECT 1 ML UNDER THE SKIN [...] 11:00 AM EDT Office Visit Family Practice [facility] [place] [address] [facility] [place] [address] Salvador Pike III, MD 200 [facility] [place] [address] Scheduled Procedures Name Priority Associated Diagnoses Date/Ti [...] D LEVEL ONCE IN A LIFETIME-USE SMARTSET# [id number] Completed 01/12/2023, 07/12/2020, 09/05/2018, Additional history exists [...] Date/Time Associated Diagnosis Comments OUTSIDE LAB RESULTS 10/19/2023 OUTSIDE LAB RESULTS 10/16/2023 documented in this encounter Results * OUTSIDE LAB RESULTS (10/19/2023) 10/19/2023 No Physician Data Unknown LABORATORY * OUTSIDE LAB RESULTS (10/16/2023) 10/16/2023 No Physician Data Unknown LABORATORY documented in this encounter Advance Directives * Full Code (Latest Code Status on File) Date Activated Date Inactivated Comments 06/07/2011 11:19 PM 06/10/2011 3:09 PM This order r eflects the patients wishes and were consensually agreed upon. Care Teams Banquet Pilot Relationship Specialty Start Date End Date Salvador Pike III, MD [address] [place] [address] PCP - General Family Medicine 12/25/20 documented as of this encounter
--- OUTSIDE RECORDS SUMMARY | 2023-12-31 04:27 | External Medical Summary | Summary of Care ---
Author Name Unknown Organization [facility] Address [address] [place] [address] Phone [phone] Care Team Providers Care Fire Extinguisher Repairer Inspector Name Role Phone Glendy RABAGO MD, Salvador Cuadra Primary Care Provider [phone] Reason for Visit * Reason Onset Date Comments Medication Refill 11/01/2023 Encounter Details Date Type Department Care Team (Late st Contact Info) Description 11/01/2023 Refill Family Practice [facility] 200 [facility] [place] [address] Salvador Pike III, MD [address] [place] [address] Common migraine with intractable migraine Allergies Active Allergy Reactions Criticality Noted Date Comments Azithromycin Hives High 07/03/2018 Dihydroergotamine High 07/03/2018 Other reaction(s): "THROAT SHUTS DOWN" Ergotamine 06/10/2001 DHE Ketorolac Tromethamine 01/08/2002 hives Penicillins 02/08/2009 rash Poison [place]ita Extract Rash 06/12/2015 Azithromycin Hives 12/20/2008 documented as of this encounter (statuses as of 11/04/2023) Medications Medication Sig Dispensed Refills Start Date End Date Status LYSINE HCL 500 MG PO TABS Take by mouth. 02/01/2013 Active SENNA S 8.6-50 MG PO TABS one tablet twice daily 02/01/2013 Active Multiple Vitamins-Minerals (MULTIVITAMIN GUMMIES ADULTS) CHEW Take by mouth. Active fluticasone (FLONASE) 50 MCG/ACT nasal sprayIndications:A llergic rhinitis Administer 1 [place] into nostril daily. 16 g 5 06/12/2015 [...] 11/04/2023 Active SUMAtriptan Succinate 100 MG Oral TabletIndications: Migraine without aura and without status migrainosus, not intractable,Migrai ne with aura and without status migrainosus, not intractable TAKE 1 TABLET AT ONSET OF MIGRAINE. MAY REPEAT IN 2 HOUR BUT NO MORE THAN 2 TABLETS IN 24 HOURS. 9 Tablet 5 02/10/2023 4 Discontinue d(Refill) Meperidine HCl 100 MG/ML Injection Solution (Demerol)Indicatio ns:Common migraine with intractable migraine Inject 100 mg into a large muscle every 4 hours as needed for Headache. 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 Authorizing Provider: SABRA CABRERA * Telephone Encounter - Maday Parks [facility] - 11/03/2023 1:13 PM EDTPending Prescriptions: Disp Refills Meperidine HCl 100 MG/ML Injection Solutio*1 mL 0 Sig: Inject 100 mg into a large muscle every 4 hours as needed for Headache. * Telephone Encounter - Maday Parks [facility] - 11/03/2023 1:06 PM EDT I have reviewed the patients controlled substance dispensing history in the Prescription Drug Monitoring Program in compliance with the [facility] regulations before prescribing a controlled substance. PDMP checked on 11/03/2023. Pending Prescriptions: Disp Refills Meperidine HCl 100 MG/ML Injection Soluti*1 mL 0 Sig: Inject 100 mg into a large muscle every 4 hours as needed for Headache. Last Visit: 10/26/2023 (in office), 02/03/2023 (telemedicine) Next Visit: 11/18/2023 Date medication was last filled: 10/20 Date medication is due for refill: 10/21 Pharmacy: [id number] Is this request for a controlled substance? Yes and Urine Drug Screen Not completed Toxicology results: No results found. However, due to the size of the patient record, not all encounters were searched.Please check Results Review for a complete set of results. Please approve if appropriate. Thank you, Maday Parks, PharmD Clinical Pharmacist [facility] ([facility]) [phone] 11/03/2023, 1:12 PM documented in this encounter Plan of Treatment Upcoming Encounters Date Type Department Care Team (Late st Contact Info) Description 11/18/2023 11:00 AM EDT Office Visit Family Practice [facility] 200 [facility] [place] [address] Glendy IIISalvador MD [address] [place] [address] Scheduled Procedures Name Priority Associated Diagnoses Date/Ti [...] Cancer Screening 12/21/2024 Lipid Panel 01/13/2028 01/12/2023, 1104/2021, 07/12/2020, Additional history exists DTap/Tdap Vaccines (4 - Td or Tdap) 09/12/2029 09/13/2019, 07/18/2009, 04/01/2000 VITAMIN D LEVEL ONCE IN A LIFETIME-USE SMARTSET# [id number] Completed 01/12/2023, 07/12/2020, 09/05/2018, Additional history exists [...] and were consensually agreed upon. Care Teams Fire Extinguisher Repairer Inspector Relationship Specialty Start Date End Date Salvador Pike III, MD [address] [facility] [place] [address] PCP - General Family Medicine 12/25/20 documented as of this encounter
--- OUTSIDE RECORDS SUMMARY | 2023-12-31 04:27 | External Medical Summary | Continuity of Care Document ---
Author Name Unknown Organization [facility] [address] [place], [place] [id number] Care Team Providers Care Electrician Shop Name Role Phone Salvador Pike Primary Care Physician [phone] [id number] Date(s): 10/29/23 - 10/29/23 [facility] [address] [facility] [address] [facility] 303 [facility] 1 [place], [place] [phone] Encounter Diagnosis Atrioventricular block, second degree(Final) - Discharge Disposition: [...] Status: Ordered Results Laboratory List Name Date Angiotensin 1 Converting Enzyme (ANGIOTE NS CONV ENZ) 10/29/23 Most recent to oldest [Reference Range]: 1 JOBY 114 1 *HI* (10/29/23 11:30 AM) 1Result Comment: Reference range: 16 to 85 Unit: U/L Performed By: [employer] [address] [place] [id number] Osteopathy Doctor: Sidney Haddad MD, PhD CLIA Number: [id number] Social History Social History Type Response Smoking Status Never smoked cigaret scott Sex Sex Representation Female (finding) Patient Care team information Care Team Personnel Name: MD Pike John E Position: Referring DIRECT Member Role: Primary Care Provider Address: [address] [place] [id number] [place]
--- OUTSIDE RECORDS SUMMARY | 2023-12-31 04:27 | External Medical Summary | Summary of Care ---
Author Name Unknown Organization [facility] Address [address] [place] [address] Phone [phone] Care Team Providers Care Wooling Machine Operator Name Role Phone Glendy RABAGO MD, Salvador Cuadra Primary Care Provider [phone] Encounter Details Date Type Department Care Team (Late st Contact Info) Description 11/02/2023 Orders Only Family Practice [facility] 200 [facility] [place] [place] [address] Salvador Pike III, MD [facility] [address] Allergies Active Allergy Reactions Criticality Noted Date Comments Azithromycin Hives High 07/03/2018 Dihydroergotamine High 07/03/2018 Other reaction(s): "THROAT SHUTS DOWN" Ergotamine 06/10/2001 DHE Ketorolac Tromethamine 01/08/2002 hives Penicillins 02/08/2009 rash Poison [place] Extract Rash 06/12/2015 Azithromycin Hives 12/20/2008 documented as of this encounter (statuses as of 11/02/2023) Medications Medication Sig Dispensed Refills Start Date End Date Status LYSINE HCL 500 MG PO TABS Take by mouth. 02/01/2013 Active SENNA S 8.6-50 MG PO TABS one tablet twice daily 02/01/2013 Active Multiple Vitamins-Minerals (MULTIVITAMIN GUMMIES ADULTS) CHEW Take by mouth. Active fluticasone (FLONASE) 50 MCG/ACT nasal sprayIndications:Al lergic rhinitis Administer 1 [place] into nostril daily. 16 g 5 06/12/2015 [...] as of this encounter (statuses as of 11/02/2023) Active Problems Problem Noted Date Diagnosed Date [...] as of this encounter (statuses as of 11/02/2023) Resolved Problems Problem Noted Date Diagnosed Date [...] as of this encounter (statuses as of 11/02/2023) Immunizations Name Administration Dates Next Due COVID-19 [...] No 05/19/2023 Does the household have a [facility] source of income? (Household - for ages [...] Practice [place] [address] [place] [address] Salvador Pike III, MD [address] [place] [address] Scheduled Procedures Name Priority Associated Diagnoses Date/Ti [...] D LEVEL ONCE IN A LIFETIME-USE SMARTSET# [id number] Completed 01/12/2023, 07/12/2020, 09/05/2018, Additional history exists [...] Priority Date/Time Associated Diagnosis Comments CHEMISTRY-OUTSIDE Routine 10/29/2023 documented in this encounter Results * (ABNORMAL) CHEMISTRY-OUTSIDE (10/29/2023) Not all results display below - see scan for full detail OUTSIDE LAB (SEE SCANNED REPORT) Comment:SCAN INCLUDES - CBC, CMP CREATININE-OUTSID E LAB 0.86 0.6 - 1.2 MG/DL OUTSIDE LAB (SEE SCANNED REPORT) EGFR-OUTSIDE LAB 73.9 ML/MIN OUT SIDE LAB (SEE SCANNED REPORT) POTASSIUM-OUTSIDE LAB 4.0 3.5 - 5.1 MMOL/L OUTSIDE LAB (SEE SCANNED REPORT) GLUCOSE-OUTSIDE LAB 106(A) 70 - 99 MG/DL OUTSIDE LAB (SEE [...] LAB OUTSIDE LAB (SEE SCANNED REPORT) HEMOGLOBIN, [id number] LAB OUTSIDE LAB (SEE SCANNED REPORT) PHOSPHORUS-OUTSID E LAB OUTSIDE LAB (SEE SCANNED REPORT) PTH-OUTSIDE LAB OUTS CEDRICK LAB (SEE SCANNED REPORT) MICROALBUMIN RATIO-OUTSIDE LAB OUTSIDE LA B (SEE SCANNED REPORT) PROTEIN, UA-OUTSIDE LAB OUTSIDE LAB (SEE SCANNED REPORT) HGB 13.0 12.0 - 16.0 G/DL OUTSIDE LAB (SEE SCANNED REPORT) 10/29/2023 Tonio Espitia MD LABORATORY OUTSIDE LAB (SEE SCANNED REPORT) documented in this encounter Advance Directives * Full Code (Latest Code Status on File) Date Activated Date Inactivated Comments 06/07/2011 11:19 PM 06/10/2011 3:09 PM This order r eflects the patients wishes and were consensually agreed upon. Care Teams Wooling Machine Operator Relationship Specialty Start Date End Date Salvador Pike III, MD [address] [place] [address] PCP - General Family Medicine 12/25/20 documented as of this encounter
--- OUTSIDE RECORDS SUMMARY | 2023-12-31 04:27 | External Medical Summary | Summary of Care ---
Author Name Unknown Organization [facility] Address [address] [place] [address] Phone [phone] Care Team Providers Care Footwear Sales Associate Name Role Phone Glendy RABAGO MD, Salvador Cuadra Primary Care Provider [phone] Reason for Visit * Reason Onset Date Comments Advice 11/03/2023 Encounter Details Date Type Department Care Team (Late st Contact Info) Description 11/03/2023 Telephone Family Practice [facility] [address] [place] [address] Salvador Pike III, MD [address] [place] [address] Advice Allergies Active Allergy Reactions Criticality Noted [...] MCG/ACT nasal sprayIndications:Al lergic rhinitis Administer 1 [place] into nostril daily. 16 g 5 06/12/2015 [...] Emgality 120 MG/ML Subcutaneous Solution Prefilled Syringe (Gal[facility]anezumab[facility]) INJECT 1 ML UNDER THE SKIN [...] encounter Miscellaneous Notes * Telephone Encounter - Jenna Erickson PA-C - 11/03/2023 4:49 PM EDT Noted. * Telephone Encounter - Brionna Cartwright RN - 11/03/2023 3:13 PM EDT Chery will call pt to tell her absolute neutripil level is 0.68. Called Dr. Younger, hematology, at [phone] Younger's nurse. Informed them of absolute neutripil level. She was seen there today. They said that she has not been seen there since 2019 so she is considered a new pt. They said that they did not order the lab. Said that pt had a bone marrow biopsy done on 10/15/23 and it was negative. Said the doctor is not worried unless anc is below 500. Pt's was 680. They will inform Dr. Younger of lab result. * Telephone Encounter - Linda Fernando LPN - 11/03/2023 2:48 PM EDT Chery calling from [facility]. Report that the pt sees them for labs and wound dressing changes. Today 11/03/23 pt's absolute neutrophils were 0.68. Called PCP office, spoke with Brionna and made her aware. Please advise. * Telephone Encounter - Abraham Bucio OSA - 11/03/2023 2:45 PM EDT Reason for patient's call: Chery from [facility] medical treatment unit is calling asking to talk to office of Dr. Pike. Caller was transferred to Linda at the nurse line. documented in this encounter Plan of Treatment Upcoming Encounters Date Type Department Care Team (Late st Contact Info) Description 11/18/2023 11:00 AM EDT Office Visit [facility] [place] 200 [facility] [place], [place] [address] Salvador Pike III, MD 200 [facility] [place] [address] Scheduled Procedures Name Priority Associated Diagnoses Date/Ti [...] D LEVEL ONCE IN A LIFETIME-USE SMARTSET# [id number] Completed 01/12/2023, 07/12/2020, 09/05/2018, Additional history exists [...] and were consensually agreed upon. Care Teams Footwear Sales Associate Relationship Specialty Start Date End Date Salvador Pike III, MD 200 [facility] [place] [place] [address] PCP - General Family Medicine 12/25/20 documented as of this encounter
--- OUTSIDE RECORDS SUMMARY | 2023-12-31 04:28 | External Medical Summary | Summary of Care ---
Author Name Unknown Organization [facility] Address [address] [place] [address] Phone [phone] Care Team Providers Care Inspecting Supervisor Name Role Phone Glendy RABAGO MD, Salvador Cuadra Primary Care Provider [phone] Reason for Visit * Reason Onset Date Comments Advice 2023 Encounter Details Date Type Department Care Team (Late st Contact Info) Description 2023 Telephone Family Practice [facility] [address] [place] [address] Salvador Pike III, MD [address] [place] [address] Advice Allergies Active Allergy Reactions Criticality Noted Date Comments Azithromycin Hives High 07/03/2018 Dihydroergotamine High 07/03/2018 Other reaction(s): "THROAT SHUTS DOWN" Ergotamine 06/10/2001 DHE Ketorolac Tromethamine 01/08/2002 hives Penicillins 02/08/2009 rash Poison [place] Extract Rash 06/12/2015 Azithromycin Hives 12/20/2008 documented as of this encounter (statuses as of 10/20/2023) Medications Medication Sig Dispensed Refills Start Date End Date Status LYSINE HCL 500 MG PO TABS Take by mouth. 02/01/2013 Active SENNA S 8.6-50 MG PO TABS one tablet twice daily 02/01/2013 Active Multiple Vitamins-Minerals (MULTIVITAMIN GUMMIES ADULTS) CHEW Take by mouth. Active fluticasone (FLONASE) 50 MCG/ACT nasal sprayIndications:All ergic rhinitis Administer 1 [place] into nostril daily. 16 g 5 06/12/2015 [...] Emgality 120 MG/ML Subcutaneous Solution Prefilled Syringe (Galcanezumab[facility]) INJECT 1 ML UNDER THE SKIN ONCE [...] as of this encounter (statuses as of 10/20/2023) Active Problems Problem Noted Date Diagnosed Date [...] as of this encounter (statuses as of 10/20/2023) Resolved Problems Problem Noted Date Diagnosed Date [...] as of this encounter (statuses as of 10/20/2023) Immunizations Name Administration Dates Next Due COVID-19 [...] No 05/19/2023 Does the household have a [facility] source [facility] income? (Household - for [...] on file Are you (or your family) grieslda eless or worried that you might be [...] Telephone Encounter - Brionna Cartwright RN - 10/19/2023 1:28 PM EDT Pt has an appt with Dr. Pike on 10/26/23. * Telephone Encounter - Jodi Andersen OSA - 2023 2:19 PM EDT Patient would like to knot picker cloth referral in person for hematology [phone]. She would also like to call her directly. documented in this encounter Plan of Treatment Upcoming Encounters Date Type Department Care Team (Late st Contact Info) Description 10/26/2023 11:40 AM EDT Office Visit Family Practice [facility] [place] 200 [facility] [place] [address] Salvador Pike III, MD 200 [facility] [place] [address] Scheduled Procedures Name Priority Associated Diagnoses Date/Ti [...] D LEVEL ONCE IN A LIFETIME-USE SMARTSET# [id number] Completed 01/12/2023, 07/12/2020, 09/05/2018, Additional history exists [...] and were consensually agreed upon. Care Teams Inspecting Supervisor Relationship Specialty Start Date End Date Salvador Pike III, MD [address] [place] [address] PCP - General Family Medicine 12/25/20 documented as of this encounter
--- OUTSIDE RECORDS SUMMARY | 2023-12-31 04:28 | External Medical Summary | Summary of Care ---
Author Name Unknown Organization [facility] Address [address] [place] [address] Phone [phone] Care Team Providers Care Physician Relations Specialist Name Role Phone Glendy RABAGO MD, Salvador Cuadra Primary Care Provider Reason for Visit * Reason Onset Date Comments Hospital Follow-Up 10/20/2023 [facility] hosp d/ c 10/18 Encounter Details Date Type Department Care Team (Late st Contact Info) Description 10/20/2023 Telephone Family Practice [facility] [place] [address] [place] [address] Makenzie Batista, JUAN CARLOS Hospital Follow-Up ([facility] hosp d/c 10/18) Allergies Active Allergy Reactions Criticality Noted Date [...] MCG/ACT nasal sprayIndications:All ergic rhinitis Administer 1 [place] into nostril daily. 16 g 5 06/12/2015 [...] Emgality 120 MG/ML Subcutaneous Solution Prefilled Syringe (Galcanezumab-[facility]) INJECT 1 ML UNDER THE SKIN ONCE [...] Active Meperidine HCl 100 MG/ML Injection Solution (Demerol) Inject 100 mg into a large muscle every 4 hours as needed for Headache. Active documented as of this encounter (statuses [...] No 05/19/2023 Does the household have a [facility] source of income? (Household - for [...] encounter Miscellaneous Notes * Telephone Encounter - Makenzie Batista RN - 10/20/2023 12:46 PM EDT Transitions of Care Note Reason for Referral:Recent Admission Phone visit for follow up: SAVANNA Admitted to: [facility], Date: 10/14 Discharged to: Home, Date: 10/18 Diagnosis driving hospitalization: Exertional dyspnea, second degree heart block. 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 Pulmonary: Denies problems Chills/Sweats/Fever:Denies chills/sweats Denies fever Appetite:Denies problems such as nausea, vomiting, burning, decreased appetite Current diet: regular Bowel: denies problems Bladder: denies problems Wound (If applicable): N/A had bone marrow biopsy Pain:Denies Sleep:Denies problems FUNCTIONAL STATUS: ADL'S: Needs Assistance With:N/A as pt is independent IADL'S: Needs Assistance With:N/A as pt is independent Cognitive and Mental Health: denies problems, alert and oriented x 3, and able to communicate, understand instructions, process information. MEDICATION RECONCILIATION Medications: Discharge med list reviewed with patient or caregiver New medication(s) filled since hospitalization- on IV antibiotics, OBJECTIVE ASSESSMENT Medication Risk Assessment: No risks identified Did patient fail outpatient treatment? No Discharge instructions available for review? Yes PLAN Symptom Monitoring Interventions:Member/caregiver education - signs and symptoms to contact PrimaryCare (DO NOT DELETE-Three carmichael symptoms patient is to report to PCP) 1. Fever/chills 2. Difficulties with IV infusion 3. CP/SOB Oxyhydrogen WelderInformation Services Manager of Care interventions/Action Plan: Medication reconciliation and Hospital d/c appointment made, patient requests 11/15 Educated on role of SAVANNA completed with patient/caregiver. Educated patient/caregiver on patient right to have input on SAVANNA plan of care. Verification of Home Health/DME if indicated: NO n/a Identified Care Gaps: Yes Care Gaps closed this call: Medication optimization and Transition of Care follow-up communication Re-evaluation of Plan of Care and progress towards goals achievement: Patient education this visit: Verbal, as above Plan to instructed to call Primary Care Provider with change in symptoms or as needed before next follow-up, discharge needs met, verbalizes understanding and agrees with plan. Makenzie Batista RN documented in this encounter Plan of Treatment Upcoming Encounters Date Type Department Care Team (Late st Contact Info) Description 10/26/2023 11:40 AM EDT Office Visit [facility] [place] [address] [place] [address] Glendy Salvador RABAGO MD [address] [facility] [place] [address] 11/18/2023 11:00 AM EDT Office Visit Family Practice [facility] [place] [address] [place] [address] Salvador Pike III, MD 200 [facility] [place] [address] Scheduled Procedures Name Priority Associated Diagnoses Date/Ti [...] D LEVEL ONCE IN A LIFETIME-USE SMARTSET# [id number] Completed 01/12/2023, 07/12/2020, 09/05/2018, Additional history exists [...] and were consensually agreed upon. Care Teams Physician Relations Specialist Relationship Specialty Start Date End Date Salvador Pike III, MD 200 [facility] [place] [address] PCP - General Family Medicine 12/25/20 documented as of this encounter
--- OUTSIDE RECORDS SUMMARY | 2023-12-31 04:28 | External Medical Summary | Summary of Care ---
Author Name Unknown Organization [facility] Address [address] [place] [address] Phone [phone] Care Team Providers Care Stonemason Helper Name Role Phone Glendy RABAGO MD, Denzel Cuadra Primary Care Provider [phone] Reason for Referral * Medication Prior Authorization - Closed Specialty Diagnoses / Procedures Referred By Amador hamilton Referred To Contact Diagnoses Common migraine with intractable migraine Denzel Mcnair III, MD [address] [facility] [place] [address] Referral ID Status Reason Start Date Expiration Date Visits Re quested Visits Authorized [id number] Closed 999 999 Reason for Visit * Reason Onset Date Comments Medication Refill 10/20/2023 Encounter Details Date Type Department Care Team (Late st Contact Info) Description 10/20/2023 Refill Family Practice [place] [address] [place] [address] Denzel Mcnair III, MD 200 [facility] [place] [address] Common migraine with intractable migraine* Allergies Active Allergy Reactions Criticality Noted Date Comments Azithromycin Hives High 07/03/2018 Dihydroergotamine High 07/03/2018 Other reaction(s): "THROAT SHUTS DOWN" Ergotamine 06/10/2001 DHE Ketorolac Tromethamine 01/08/2002 hives Penicillins 02/08/2009 rash Poison Floresita Extract Rash 06/12/2015 Azithromycin Hives 12/20/2008 documented as of this encounter (statuses as of 10/21/2023) Medications Medication Sig Dispensed Refills Start Date End Date Status LYSINE HCL 500 MG PO TABS Take by mouth. 02/01/2013 Active SENNA S 8.6-50 MG PO TABS one tablet twice daily 02/01/2013 Active Multiple Vitamins-Minerals (MULTIVITAMIN GUMMIES ADULTS) CHEW Take by mouth. Active fluticasone (FLONASE) 50 MCG/ACT nasal sprayIndications:A llergic rhinitis Administer 1 [place] into nostril daily. 16 g 5 06/12/2015 [...] Emgality 120 MG/ML Subcutaneous Solution Prefilled Syringe (Scratch Wirelessezumab-gnlm ) INJECT 1 ML UNDER THE SKIN [...] needed for Headache. 1 mL 10/21/2023 Active Meperidine HCl 100 MG/ML Injection Solution (Demerol) Inject 100 mg into a large muscle every 4 hours as needed for Headache. Discontinue d(Refill) documented as of this encounter (statuses as of 10/21/2023) Active Problems Problem Noted Date Diagnosed Date [...] as of this encounter (statuses as of 10/21/2023) Resolved Problems Problem Noted Date Diagnosed Date [...] as of this encounter (statuses as of 10/21/2023) Immunizations Name Administration Dates Next Due COVID-19 [...] Encounter - Denzel Mcnair III, MD - 10/21/2023 8:29 AM EDTSigned Prescriptions: Disp Refills Meperidine HCl 100 MG/ML Injection Solutio*1 mL 0 Sig: Inject 100 mg into a large muscle every 4 hours as needed for Headache. Authorizing Provider: DENZEL MCNAIR III * Telephone Encounter - Makenzie Mariscal RN - 10/20/2023 1:07 PM EDT Patient recently discharged from the hospital - dealing with a migraine and asking for a refill of meperidine injection Pending Prescriptions: Disp Refills Meperidine HCl 100 MG/ML Injection Soluti*1 mL 0 Sig: Inject 100 mg into a large muscle every 4 hours as needed for Headache. Signed Prescriptions: Disp Refills Meperidine HCl 100 MG/ML Injection Solutio* Sig: Inject 100 mg into a large muscle every 4 hours as needed for Headache. Authorizing Provider: HISTORY PER PATIENT Ordering User: MAKENZIE MARISCAL Last Visit: 06/02/2023 (in office), 02/03/2023 (telemedicine) Next Visit: 10/26/2023 Last date the medication was ordered: 2021 Patient Active Problem List Diagnosis Allergic rhinitis [...] due to Dexter's thyroiditis Atrial septal aneurysm Labs: Lab Results Component Value Date/Time CREATININE - [facility] 1.0 01/12/2023 09:13 AM CREATININE - [facility] 0.9 12/21/2014 11:42 AM CREATININE-OUTSIDE LAB 0.89 12/31/2021 12:00 AM Lab Results Component Value Date/Time POTASSIUM - [facility] 5.0 01/12/2023 09:13 AM POTASSIUM - [facility] 4.5 12/21/2014 11:42 AM POTASSIUM-OUTSIDE LAB 4.5 12/31/2021 12:00 AM Lab Results Component Value Date/Time TSH - [facility] 2.70 06/02/2023 12:34 PM TSH - [facility] 2.80 12/21/2014 11:42 AM TSH - OUTSIDE LAB 3.24 09/28/2023 12:00 AM Lab Results Component Value Date/Time LDL (CALCULATED)-OUTSIDE LAB 161 (A) 12/31/2021 12:00 AM LDL (CALCULATED)-OUTSIDE LAB 157 07/12/2020 12:00 AM LDL CHOLESTEROL (CALCULATED) - [facility] 175 (H) 01/12/2023 09:13 AM LDL CHOLESTEROL (CALCULATED) - [facility] 175 (H) 12/21/2014 11:42 AM LDL CHOLESTEROL (CALCULATED) - [facility] 133 (H) 08/02/2009 11:43 AM LDL CHOLESTEROL (DIRECT MEASURE) - [facility] NOT APPLICABLE 12/21/2014 11:42 AM Lab Results Component Value Date/Time ALT - [facility] 18 01/12/2023 09:13 AM ALT - [facility] 9 (L) 12/21/2014 11:42 AM ALT-OUTSIDE LAB 22 07/12/2020 12:00 AM Hemoglobin AIC Results: Lab Results Component Value Date/Time HEMOGLOBIN A1C - [facility] 5.4 01/12/2023 09:13 AM HEMOGLOBIN A1C - [facility] 5.4 08/02/2009 11:43 AM HEMOGLOBIN A1C - [facility] 5.7 05/01/2005 04:53 PM HEMOGLOBIN A1C - [facility] 5.3 07/26/2001 04:27 PM documented in this encounter Plan of Treatment Upcoming Encounters Date Type Department Care Team (Late st Contact Info) Description 10/26/2023 11:40 AM EDT Office Visit Family Practice [place] 200 [facility], [place] [address] Denzel Mcnair III, MD 200 [facility] [place] [address] 11/18/2023 11:00 AM EDT [facility] [address] [facility] [place] [address] Denzel Mcnair III, MD [address] [facility] [place] [address] Scheduled Procedures Name Priority Associated Diagnoses Date/Ti [...] D LEVEL ONCE IN A LIFETIME-USE SMARTSET# [id number] Completed 01/12/2023, 07/12/2020, 09/05/2018, Additional history exists [...] Visit Diagnoses Diagnosis Common migraine with intractable migraine- Primary Migraine without aura, with intractable migraine, so stated, without mention of status migrainosus documented in this encounter Advance Directives * Full Code (Latest Code Status on File) Date Activated Date Inactivated Comments 06/07/2011 11:19 PM 06/10/2011 3:09 PM This order reflects the patients wishes and were consensually agreed upon. Care Teams Stonemason Helper Relationship Specialty Start Date End Date Denzel Mcnair III, MD [address] [place] [address] PCP - General Family Medicine 12/25/20 documented as of this encounter
--- OUTSIDE RECORDS SUMMARY | 2023-12-31 04:28 | External Medical Summary | Summary of Care ---
Author Name Unknown Organization [facility] Address [address] [place] [address] Phone [phone] Care Team Providers Care Group Care Worker Name Role Phone Glendy RABAGO MD, Salvador Cuadra Primary Care Provider [phone] Encounter Details Date Type Department Care Team (Late st Contact Info) Description 10/26/2023 Orders Only Family Practice [facility] [place] [address] Salvador Pike III, MD [facility] [address] Allergies Active Allergy Reactions Criticality Noted Date Comments Azithromycin Hives High 07/03/2018 Dihydroergotamine High 07/03/2018 Other reaction(s): "THROAT SHUTS DOWN" Ergotamine 06/10/2001 DHE Ketorolac Tromethamine 01/08/2002 hives Penicillins 02/08/2009 rash Poison Floresita Extract Rash 06/12/2015 Azithromycin Hives 12/20/2008 documented as of this encounter (statuses as of 10/26/2023) Medications Medication Sig Dispensed Refills Start Date End Date Status LYSINE HCL 500 MG PO TABS Take by mouth. 02/01/2013 Active SENNA S 8.6-50 MG PO TABS one tablet twice daily 02/01/2013 Active Multiple Vitamins-Minerals (MULTIVITAMIN GUMMIES ADULTS) CHEW Take by mouth. Active fluticasone (FLONASE) 50 MCG/ACT nasal sprayIndications:All ergic rhinitis Administer 1 [place] into nostril daily. 16 g 5 06/12/2015 [...] Emgality 120 MG/ML Subcutaneous Solution Prefilled Syringe (Galcanezumab-[facility]) INJECT 1 ML UNDER THE [...] Active Meperidine HCl 100 MG/ML Injection Solution (Demerol)Indications :Common migraine with intractable migraine Inject 100 mg into a large muscle every 4 hours as needed for Headache. 1 mL 10/21/2023 Active documented as of this encounter (statuses as of 10/26/2023) Active Problems Problem Noted Date Diagnosed Date [...] as of this encounter (statuses as of 10/26/2023) Resolved Problems Problem Noted Date Diagnosed Date [...] as of this encounter (statuses as of 10/26/2023) Immunizations Name Administration Dates Next Due COVID-19 [...] No 05/19/2023 Does the household have a [facility] source of income? (Household - for [...] Description 10/26/2023 11:40 AM EDT Office Visit [facility] [address] [place] [address] Salvador Pike III, MD [address] [place] [address] 11/18/2023 11:00 AM EDT Office Visit [facility] [place] [address] [place] [address] [address] Salvador Pike III, MD [address] [place] [address] Scheduled Procedures Name Priority Associated Diagnoses Date/Ti [...] D LEVEL ONCE IN A LIFETIME-USE SMARTSET# [id number] Completed 01/12/2023, 07/12/2020, 09/05/2018, Additional history exists [...] Priority Date/Time Associated Diagnosis Comments CHEMISTRY-OUTSIDE Routine 10/22/2023 documented in this encounter Results * (ABNORMAL) CHEMISTRY-OUTSIDE (10/22/2023) Not all results display below - see scan for full detail OUTSIDE LAB (SEE SCANNED REPORT) Comment:SCAN INCL: CBC,CMP, CREATININE-OUTSID E LAB 0.83 0.6 - 1.2 MG/DL OUTSIDE LAB (SEE SCANNED REPORT) EGFR-OUTSIDE LAB 77.2 OUT SIDE LAB (SEE SCANNED REPORT) POTASSIUM-OUTSIDE LAB 3.9 3.5 - 5.1 MMOL/L OUTSIDE LAB (SEE SCANNED REPORT) GLUCOSE-OUTSIDE LAB 107(A) 70 - 99 MG/DL OUTSIDE LAB (SEE [...] LAB OUTSIDE LAB (SEE SCANNED REPORT) HEMOGLOBIN, P6Z-UEMZXMY LAB OUTSIDE LAB (SEE SCANNED REPORT) PHOSPHORUS-OUTSID E LAB OUTSIDE LAB (SEE SCANNED REPORT) PTH-OUTSIDE LAB OUTS CEDRICK LAB (SEE SCANNED REPORT) MICROALBUMIN RATIO-OUTSIDE LAB OUTSIDE LA B (SEE SCANNED REPORT) PROTEIN, UA-OUTSIDE LAB OUTSIDE LAB (SEE SCANNED REPORT) HGB 13.5 12.0 - 16.0 G/DL OUTSIDE LAB (SEE SCANNED REPORT) 10/22/2023 Tonio Espitia MD LABORATORY OUTSIDE LAB (SEE SCANNED REPORT) documented in this encounter Advance Directives * Full Code (Latest Code Status on File) Date Activated Date Inactivated Comments 06/07/2011 11:19 PM 06/10/2011 3:09 PM This order r eflects the patients wishes and were consensually agreed upon. Care Teams Group Care Worker Relationship Specialty Start Date End Date Salvador Pike III, MD 200 [place] [address] PCP - General Family Medicine 12/25/20 documented as of this encounter
--- OUTSIDE RECORDS SUMMARY | 2023-12-31 04:29 | External Medical Summary | Summary of Care ---
Author Name Unknown Organization [facility] Address [address] [place] [address] Phone [phone] Care Team Providers Care Deboner Name Role Phone Glendy RABAGO MD, Salvador Cuadra Primary Care Provider [phone] Reason for Visit * Reason Onset Date Comments Advice 2023 Encounter Details Date Type Department Care Team (Late st Contact Info) Description [address] [facility] [address] [place] [address] Salvador Pike III, MD [address] [place] [address] Advice Allergies Active Allergy Reactions Criticality Noted Date Comments Azithromycin Hives High 07/03/2018 Dihydroergotamine High 07/03/2018 Other reaction(s): "THROAT SHUTS DOWN" Ergotamine 06/10/2001 DHE Ketorolac Tromethamine 01/08/2002 hives Penicillins 02/08/2009 rash Poison Floresita Extract Rash 06/12/2015 Azithromycin Hives 12/20/2008 documented as of this encounter (statuses as of 10/19/2023) Medications Medication Sig Dispensed Refills Start Date End Date Status LYSINE HCL 500 MG PO TABS Take by mouth. 02/01/2013 Active SENNA S 8.6-50 MG PO TABS one tablet twice daily 02/01/2013 Active Multiple Vitamins-Minerals (MULTIVITAMIN GUMMIES ADULTS) CHEW Take by mouth. Active fluticasone (FLONASE) 50 MCG/ACT nasal sprayIndications:All ergic rhinitis Administer 1 [place] into nostril daily. 16 g 5 06/12/2015 [...] Emgality 120 MG/ML Subcutaneous Solution Prefilled Syringe (Galcanezumab-[facility]) INJECT 1 ML UNDER THE SKIN [...] as of this encounter (statuses as of 10/19/2023) Active Problems Problem Noted Date Diagnosed Date [...] as of this encounter (statuses as of 10/19/2023) Resolved Problems Problem Noted Date Diagnosed Date [...] as of this encounter (statuses as of 10/19/2023) Immunizations Name Administration Dates Next Due COVID-19 [...] No 05/19/2023 Does the household have a [facility] source [facility]? (Household - for [...] 2:19 PM EDT Patient would like to sisal picker referral in person for hematology [phone]. She would also like to call her directly. documented in this encounter Plan of Treatment Upcoming Encounters Date Type Department Care Team (Late st Contact Info) Description 10/26/2023 11:40 AM EDT Office Visit Family Practice [facility] [place] 200 [facility] [place] [address] Salvador Pike III, MD 200 [facility] [place] [address] Scheduled Procedures Name Priority Associated Diagnoses Date/Ti [...] D LEVEL ONCE IN A LIFETIME-USE SMARTSET# [id number] Completed 01/12/2023, 07/12/2020, 09/05/2018, Additional history exists [...] and were consensually agreed upon. Care Teams Deboner Relationship Specialty Start Date End Date Salvador Pike III, MD [address] [place] [address] PCP - General Family Medicine 12/25/20 documented as of this encounter
--- OUTSIDE RECORDS SUMMARY | 2023-12-31 04:29 | External Medical Summary | Continuity of Care Document ---
Author Name Unknown Organization [facility] Address [address] [place], [place] [id number] Care Team Providers Care Pastor Name Role Phone Salvador Pike Primary Care Physician [phone] [id number] Date(s): 10/14/23 - 10/14/23 [facility] [address], [address] [place] [address] [phone] Encounter Diagnosis Body mass index [BMI] 22.0-22.9, adult(Discharge Diagnosis) - 10/14/23 Heart block AV second degree(Discharge Diagnosis) - 10/14/23 Lyme disease(Discharge Diagnosis) - 10/14/23 Lyme disease, unspecified(Final) - Body mass index [BMI] 22.0-22.9, adult(Final) - Discharge Disposition: Home or Self Care Attending Physician: MD Gilman Soraya M Referring Physician: LING Curry Sarah A Allergies, Adverse Reactions, Alerts Substance Criticality Severity Reaction Reaction Severity Status penicillins unk Active Medications CoQ10 Start: 10/14/23 1:35:00 PM EDT Start Date: 10/14/23 Status: Ordered Fish Oil 1000 mg oral capsule Start: 10/14/23 1:35:00 PM EDT Start Date: 10/14/23 Status: Ordered levothyroxine Start: 10/14/23 1:35:00 PM EDT Start Date: 10/14/23 Status: Ordered Problem List Diagnosis Diagnosis Type Effective Dates Health Status Cl inical Service Informant Heart block AV second degree Discharge Diagnosis 10/14/23 Body mass index [BMI] 22.0-22.9, adult Discharge Diagnosis 10/14/23 Non-Specified Lyme disease Discharge Diagnosis 10/14/23 Results Laboratory List Name Date Lyme Antibodies, IgG and IgM (LYME ABS I GG,IGM) 10/14/23 Most recent to oldest [Reference Range]: 1 Lyme Antibodies, IgG/IgM [NEG] PRESUMPTI VELY POSITIVE, SCREENING ASSAY, CONFIRMATION TO FOLLOW *Abnormal* (10/14/23 1:54 PM) Vital Signs Most recent to oldest [Reference Range]: 1 Height 162.5 cm (10/14/23 1:35 PM) Patient Weight 59.8 kg (10/14/23 1:35 PM) Body Mass Index 22.65 kg/m2 (10/14/23 1:35 PM) Heart Rate 75 bpm (10/14/23 1:35 PM) Blood Pressure 126/80mmHg (10/14/23 1:35 PM) BP Location # 1 Left Arm (10/14/23 1:35 PM) Patient Care team information Care Team Personnel Name: MD Glendy, Salvador Cuadra Position: Referring DIRECT Member Role: Primary Care Provider Address: [address] [place] [address]
--- OUTSIDE RECORDS SUMMARY | 2023-12-31 04:29 | External Medical Summary | Continuity of Care Document ---
Author Name Unknown Organization [facility] Address [address] [place], [place] [id number] Care Team Providers Care Appliance Parts Counter Clerk Name Role Phone Salvador Pike Primary Care Physician [phone] [id number] Date(s): 10/13/23 - 10/13/[address] [facility] [address], [address] [place] [address] [phone] Encounter Diagnosis Leukopenia(Discharge Diagnosis) - 10/14/23 Decreased white blood cell count, unspecified(Final) - Discharge Disposition: Home or Self Care Attending Physician: LING Curry Sarah A Allergies, Adverse [...] Diagnosis Diagnosis Type Effective Dates Health Status Clini joann Service Informant Leukopenia Discharge Diagnosis 10/14/23 Non-Specified Cardiology * Contributor_system, [email or web address]: VERIFY, PERFORM Event Display: Cardiac Event Monitoring Authored Date: Please click on link to see image. * Contributor_system, [email or web address]: VERIFY, PERFORM Event Display: Cardiac Event Monitoring Authored Date: Please click on link to see image. * Contributor_system, [email or web address]: VERIFY, PERFORM Event Display: Cardiac Event Monitoring Authored Date: Please click on link to see image. Patient Care team information Care Team Personnel Name: MD Pike John E Position: Referring DIRECT Member Role: Primary Care Provider Address: [address] [place] [address] [place]
--- OUTSIDE RECORDS SUMMARY | 2023-12-31 04:29 | External Medical Summary | Summary of Care ---
Author Name Unknown Organization [facility] Address [address] [place] [address] Phone [phone] Care Team Providers Care Commercial Trailer Truck Driver Name Role Phone Glendy RABAGO MD, Salvador Cuadra Primary Care Provider [phone] Reason for Visit * Reason Onset Date Comments Advice 2023 Encounter Details Date Type Department Care Team (Late st Contact Info) Description 2023 Telephone Family Practice [facility] [address] [place] [address] Salvador Pike III, MD [address] [place] [address] Advice Allergies Active Allergy Reactions Criticality Noted [...] MCG/ACT nasal sprayIndications:All ergic rhinitis Administer 1 [place] into nostril daily. [...] Emgality 120 MG/ML Subcutaneous Solution Prefilled Syringe (Galcanezumab-[facility]) INJECT 1 ML UNDER THE SKIN [...] 2:19 PM EDT Patient would like to fiber picker referral in person for hematology [phone]. She would also like to call her directly. documented in this encounter Plan of Treatment Upcoming Encounters Date Type Department Care Team (Late st Contact Info) Description 10/25/2023 3:20 PM EDT Office Visit Family Practice [place] [address] [place] [address] Genesis Murry MD [address] [place] [address] Scheduled Procedures Name Priority Associated Diagnoses Date/Ti [...] D LEVEL ONCE IN A LIFETIME-USE SMARTSET# [id number] Completed 01/12/2023, 07/12/2020, 09/05/2018, Additional history exists [...] and were consensually agreed upon. Care Teams Commercial Trailer Truck Driver Relationship Specialty Start Date End Date Salvador Pike III, MD 200 [place] [address] PCP - General Family Medicine 12/25/20 documented as of this encounter
--- OUTSIDE RECORDS SUMMARY | 2023-12-31 04:29 | External Medical Summary | Summary of Care ---
Author Name Unknown Organization [facility] Address [address] [place] [address] Phone [phone] Care Team Providers Care Content Curator Name Role Phone Glendy RABAGO MD, Salvador Cuadra Primary Care Provider [phone] Reason for Visit * Reason Onset Date Comments Advice 2023 Encounter Details Date Type Department Care Team (Late st Contact Info) Description 2023 Telephone Family Practice [facility] [address] [place] [address] Salvador Pike III, MD [address] [place] [address] Advice Allergies Active Allergy Reactions Criticality Noted [...] MCG/ACT nasal sprayIndications:All ergic rhinitis Administer 1 [place] into nostril daily. 16 g 5 06/12/2015 [...] Emgality 120 MG/ML Subcutaneous Solution Prefilled Syringe (Galcanezumab-[facility]) INJECT 1 ML UNDER THE [...] No 05/19/2023 Does the household have a [facility] source [facility] income? (Household - for [...] 2:19 PM EDT Patient would like to pickle solution maker referral in person for hematology [phone]. She would also like to call her directly. documented in this encounter Plan of Treatment Upcoming Encounters Date Type Department Care Team (Late st Contact Info) Description 10/25/2023 3:20 PM EDT Office Visit [facility] [address] [facility] [place] [address] Genesis Murry MD [address] [facility] [place] [address] 10/26/2023 11:40 AM EDT Office Visit [facility] [address] [facility] [place] [address] Salvador Pike III, MD [address] [facility] [place] [address] Scheduled Procedures Name Priority Associated Diagnoses Date/Ti [...] 01/13/2028 01/12/2023, 1104/2021, 07/12/2020, Additional history exists DTaP,Tdap,and Td Vaccines (4 - Td or Tdap) 09/12/2029 09/13/2019, 07/18/2009, 04/01/2000 VITAMIN D LEVEL ONCE IN A LIFETIME-USE SMARTSET# [id number] Completed 01/12/2023, 07/12/2020, 09/05/2018, Additional history exists [...] were consensually agreed upon. Care Teams Content Curator Relationship Specialty Start Date End Date Salvador Pike III, MD [address] [place] [address] PCP - General Family Medicine 12/25/20 documented as of this encounter
--- OUTSIDE RECORDS SUMMARY | 2023-12-31 04:29 | External Medical Summary | Continuity of Care Document ---
Author Name Unknown Organization [facility] Address [address] [place], [place] [phone] Care Team Providers Care Medical Records Supervisor Name Role Phone Salvador Pike Primary Care Physician [phone] [id number]s): 10/14/23 - 10/14/23 [facility] [address] [place] [address] [phone] Encounter Diagnosis Heart block AV complete(Discharge Diagnosis) - 10/15/23 Lyme disease(Discharge Diagnosis) - 10/15/23 Discharge Disposition: Home or Self Care Attending [...] Cl inical Service Informant Heart block AV complete Discharge Diagnosis 10/15/23 Non-Specified Lyme disease Discharge Diagnosis 10/15/23 Non-Specified Results Laboratory List Name Date Complete Blood Count w Differential (CBC ,DIFFH) 10/14/23 Most recent to oldest [Reference Range]: 1 MPV [9.0-12.2 fL] 11.4 fL (10/14/23 2:13 PM) Immature Gran% 0.2 % (10/14/23 2:13 PM) Neut% 56.6 % (10/14/23 2:13 PM) Lymph% 29.5 % (10/14/23 2:13 PM) [place]% 10.1 % (10/14/23 2:13 PM) Baso% 1.1 % (10/14/23 2:13 PM) Eos% 2.5 % (10/14/23 2:13 PM) Immat Gran, Abs [0-0.4 K/uL] 0.01 K/uL (10/14/23 2:13 PM) Neut, Abs [2.0-7.7 K/uL] 2.53 K/uL (10/14/23 2:13 PM) Lymph, Abs [1.0-3.4 K/uL] 1.32 K/uL (10/14/23 2:13 PM) [place], Abs [0-1.0 K/uL] 0.45 K/uL (10/14/23 2:13 PM) Baso, Abs [0-0.1 K/uL] 0.05 K/uL (10/14/23 2:13 PM) Eos, Abs [0-0.5 K/uL] 0.11 K/uL (10/14/23 2:13 PM) Type of Diff: AUTO *Unknown* (10/14/23 2:13 PM) RDW [11.5-14.2 %] 13.6 % (10/14/23 2:13 PM) Hct [35-44 %] 42.4 % (10/14/23 2:13 PM) Hgb [11.7-15.0 g/dL] 13.8 g/dL (10/14/23 2:13 PM) MCH [28-33 pg] 29.7 pg (10/14/23 2:13 PM) MCHC [32-36 g/dL] 32.5 g/dL (10/14/23 2:13 PM) MCV [81-96 fL] 91.2 fL (10/14/23 2:13 PM) Plts [150-350 K/uL] 176 K/uL (10/14/23 2:13 PM) RBC [3.90-5.00 M/uL] 4.65 M/uL (10/14/23 2:13 PM) WBC [4.0-10.4 K/uL] 4.47 K/uL (10/14/23 2:13 PM) Cardiology * Contributor_system, [email or web address]: VERIFY, PERFORM Event Display: Exercise Testing Authored Date: [id number] Please click on link to see image. Patient Care team information Care Team Personnel Name: MD Glendy, Salvador Cuadra Position: Referring DIRECT Member Role: Primary Care Provider Address: [address] [place] [address]
[2023-12-31 04:52] LABS: Basophils # (auto) 0.03 K/uL (0.00-0.20); Basophils % (auto) 1.1 %; Eosinophils # (auto) 0.06 K/uL (0.00-0.50); Eosinophils % (auto) 2.3 %; Hematocrit (blood only) 39.2 % (37.0-47.0); Hemoglobin 13.2 g/dl (12.0-16.0); Lymphocytes # (auto) 0.95 K/uL (1.20-3.40); Lymphocytes % (auto) 35.7 %; Mean Corpuscular Hemoglobin 29.7 pg (25.0-34.0); Mean Corpuscular Hgb Conc 33.7 g/dL (32.0-36.0); Mean Corpuscular Volume 88.1 fL (80.0-100.0); Mean Platelet Volume 9.7 fL (9.4-12.4); Monocytes # (auto) 0.41 K/uL (0.11-0.59); Monocytes % (auto) 15.4 %; Neutrophils # (auto) 1.21 K/uL (1.40-6.50); Neutrophils % (auto) 45.5 %; Platelet Count 152 K/uL (130-400); RDW Coefficient of Variation 13.2 % (11.5-14.5); Red Blood Count 4.45 M/uL (4.20-5.40); White Blood Count 2.66 K/ul (4.8-10.8)
[2023-12-31 05:03] LABS: Albumin Globulin Ratio 1.8 (0.9-2); Albumin Level 4.6 gm/dl (3.4-5.0); BUN Creatinine Ratio 23.1 (10-20); Bilirubin,Total 0.7 mg/dl (0.2-1.0); Calcium 9.3 mg/dl (8.6-10.3); Creatinine Clr Calc Pharmacy 67.1 ml/min; Globulin 2.6 gm/dl (2.5-4.0); Potassium 3.9 mmol/L (3.5-5.1); Total Protein 7.2 gm/dl (6.0-8.3)
[2023-12-31 05:09] LABS: Troponin I High Sensitivity 3.7 pg/ml (0-14)
[2023-12-31 05:22] LABS: INR 1.1 (0.9-1.1); Partial Thromboplastin Ratio 1.1; Partial Thromboplastin Time 29 Seconds (21-31); Prothrombin Time 11.5 Seconds (9.0-12.0)
[2023-12-31] MEDS: FAMOTIDINE 20MG IV PUSH 20 MG/5 ML SYR IV STA (05:39)
[2023-12-31] MEDS: ONDANSETRON INJ 2 MG/ML 2 ML VIAL IV STA (05:39)
[2023-12-31] MEDS: HYDROmorphone INJ 0.5 MG/0.5 ML SYR IV STA ×2 (05:40→08:33)
--- NOTE | 2023-12-31 05:51 | Emergency Department Note ---
Impression & Plan Esophageal spasm, Odynophagia, Atypical chest pain Admit to the [facility] ED Provider Note NAME: ERIKA LOPEZ AGE: 58 SEX: Female INFORMANT: Patient ED PROVIDER(S): Renée Farley DO CHIEF COMPLAINT: Chest Pain spasms PLAN: Disposition: Admit to the [facility] MEDICAL DECISION MAKING: this is a 58-year-old female patient who presents to the emergency department with a 1 week history of episodes of chest pain spasms. 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 She had it adjusted yesterday. She has these episodes of significant chest spasm that are exacerbated with eating and drinking. She had been prescribed omeprazole for these episodes with no relief of her symptoms. Laboratory studies here reveal a white blood cell count of 2.6 which is normal for her. She has a negative troponin. Glucose was 104. Renal function was normal. Electrolytes were unremarkable. Patient was given a dose of IV Pepcid and IV Zofran. This gave her no relief of her symptoms. When she has these episodes of spasm, they are debilitating. Patient went for CT scan of the chest which showed no esophageal narrowing or PE. There was some nonspecific pulmonary findings. She was given a dose of IV Dilaudid with significant relief to her symptoms. I spoke with her extensively about these episodes and how swallowing is also quite painful. The chest discomfort certainly seems to be gastrointestinal in origin. [facility] for further [facility] care. The patient was given a second dose of IV Dilaudid. 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 Triage Nursing notes: [reviewed and agree with them]. Vital Signs: reviewed and remarkable for no significant abnormalities Additional History obtained from: who is at the bedside Differential Diagnosis: Esophageal spasm, recurrent esophageal stricture as the patient has had narrowing with a dilation before, PE, costochondritis, esophagitis Diagnostics, independently interpreted by me: ECG: normal sinus rhythm at a rate of [address] segment elevation or signs of ischemia. There is no ectopy. Cardiac Monitoring: Normal sinus rhythm at a rate of 72 Imaging studies: portable chest x-ray: No evidence of cardiomegaly. Pacemaker present. No evidence of pneumothorax CT scan of the chest: As per radiology HPI: 58 year old Female arrives for evaluation of severe diffuse chest discomfort. Patient describes having intermittent episodes of chest pain over the past week. The pain starts at the top part of her sternum and radiates down across both sides of her rib cage. The pain has become much more severe in the past day and the episodes are slightly more frequent. She describes them as "jolts of chest pain." These are exacerbated if she tries to eat or drink anything. They can occur sometimes even with swallowing saliva. PAST MEDICAL HISTORY: See Below, PAST SURGICAL HISTORY: See Below, SOCIAL HISTORY: See Below, HOME MEDICATIONS: See list ALLERGIES: See list VITALS: See Below PHYSICAL EXAMINATION: HEENT: Head - normocephalic and atraumatic. Pupils are equal, round, and reactive to light. Extraocular eye muscles are intact, and sclera are anicteric. Nose - moist nasal mucosa without discharge. Mouth - moist buccal mucosa. Oropharynx is nonerythematous and there is no tonsillar exudate or edema noted. Neck: Supple; no JVD, nuchal rigidity, cervical lymphadenopathy. Heart: Regular rate and rhythm. There is a normal S1 and S2 with no murmurs, clicks, or gallops appreciated. Lungs: Clear to auscultation bilaterally with no wheezes, rales, or rhonchi. Abdomen: Soft, completely nontender, nondistended, with good bowel sounds. There are no palpable pulsatile masses or hepatosplenomegaly. There is no guarding, rigidity, or rebound noted. Extremities: No evidence of cyanosis, clubbing, or edema. There are easily palpable peripheral pulses. Skin: warm and dry with good turgor and no rashes. Emergency department treatment: The patient was placed on a court monitor, IV Pepcid, IV Zofran, IV Dilaudid x 2 Emergency department course: The patient was evaluated in room A-3. A complete history and physical was performed. A twelve-lead EKG was obtained. An order was placed for continuous cardiac monitoring. The patient was in the normal sinus rhythm at a rate of 72. IV lock was initiated and labs were drawn as above. Patient was given a dose of IV Pepcid and IV Zofran. She did not get much relief of her symptoms. She was given a dose of IV Dilaudid which gave her significant relief of her discomfort. She had a chest x-ray as described above. She went on to receive a CT scan of her chest. I reviewed the findings with the patient and her . She was still quite uncomfortable received her second dose of IV Dilaudid. I reviewed possible inpatient versus outpatient options with them and with shared decision making we decided on inpatient planning. [facility] and [facility] will evaluate for further inpatient care. Past Med/Surg History Problem List (Updated 01/02/24 @ 07:06 by Renée Farley DO) Atypical chest pain (Acute) Odynophagia (Acute) Esophageal spasm (Acute) Atypical chest pain Epigastric pain Lyme carditis Second degree heart block Exertional dyspnea (Acute) Imbalance Left ureteral calculus Hydronephrosis, left Chest pain (Acute) Sinusitis (Acute) Ataxia (Acute) Acute viral labyrinthitis Stroke-like symptoms possibly a symptom of lymes disease Vertigo (Acute) Hypothyroidism recent dx; no meds at this time Osteoporosis (Chronic) History of kidney stones Patent foramen ovale (Chronic 07/27/12) Medical History 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, recent incidental finding, to follow w/ [facility] GERD (gastroesophageal reflux disease) Hx of transesophageal echocardiography (JON) for monitoring Calculus of distal right ureter 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 Surgical History Hx of colonoscopy History of dilatation and curettage Hx of laparoscopy Hx of cystoscopy w/ stent Hx of lithotripsy Hx of tonsillectomy H/O bilateral oophorectomy History of hysterectomy Family History Mother Cervical cancer Social History Smoking Status: Never smoker Second Hand Exposure: No; Do You Dip or Chew Tobacco: No; Tobacco Cessation Education Requested by Patient: No Hx Alcohol Use: No Hx Substance Use: No Preferred Language: Amharic Communication Ability: Effective Tube Inspector Required: No Beliefs That Will Affect Care: None Current Living Situation: Spouse Other Information That Helps Us Care for You: No Feels Safe at Home: Yes Safety Concerns: Feels Safe At This Time Assistive Devices: None Allergies Allergies Allergy/AdvReac Type Severity Reaction Status Date / Time azithromycin [From Zithromax] Allergy Severe Hives Verified 12/31/23 08:36 dihydroergotamine Allergy Severe "THROAT Verified 12/31/23 08:36 SHUTS DOWN" ketorolac Allergy Intermediate HIVES Verified 12/31/23 08:36 Milk Containing Products Allergy Intermediate Gastrointestinal Unverified 12/31/23 08:36 (Dairy) Upset Penicillins Allergy Intermediate Hives Verified 12/31/23 08:36 Home Meds Home Medications Medication Instructions Recorded Confirmed ascorbic acid (vitamin C) 500 mg 500 mg PO QAM 11/11/17 12/31/23 tablet (Vitamin C) conjugated estrogens 0.625 mg/gram 1 applic vaginal 2XWK 11/11/17 12/31/23 vaginal cream (Premarin) fluticasone propionate 50 1 spray intranasal DAILY PRN 11/11/17 12/31/23 mcg/actuation nasal Allergy Symptoms spray,suspension (Flonase Allergy Relief) folic acid 400 mcg tablet 400 mcg PO QAM 11/11/17 12/31/23 lysine 500 mg tablet (L-Lysine) 500 mg PO DAILY PRN Cold Sore(s) 11/11/17 12/31/23 selenium 200 mcg tablet (SelenoMax) 200 mcg PO QAM PRN illness 11/11/17 12/31/23 sennosides 8.6 mg-docusate sodium 1 tab PO BID PRN Constipation 11/11/17 12/31/23 50 mg tablet (Senna-S) sumatriptan succinate 100 mg 100 mg PO UD PRN Migraine Headache 11/11/17 12/31/23 tablet (Imitrex) cholecalciferol (vitamin D3) 125 5,000 units PO UD 07/03/18 12/31/23 mcg (5,000 unit) tablet (Vitamin D3) meperidine (PF) 100 mg/mL 1 ml IM DIRECTED PRN Migraine 07/03/18 12/31/23 injection solution Headache multivitamin (Multiple Vitamins 1 tab PO QAM 07/03/18 12/31/23 tablet) ibuprofen 800 mg tablet 800 mg PO DIRECTED PRN Pain 09/26/20 12/31/23 galcanezumab-gnlm 120 mg/mL 120 mg subcut MONTHLY 10/25/22 12/31/23 subcutaneous syringe (Emgality) albuterol sulfate 90 mcg/actuation 1 puff inhalation DIRECTED PRN 10/15/23 12/31/23 aerosol inhaler Other alendronate 70 mg tablet 70 mg PO WK 10/15/23 12/31/23 aspirin 81 mg tablet,delayed 81 mg PO UD 10/15/23 12/31/23 release (Adult Aspirin Regimen) levothyroxine 25 mcg tablet 25 mcg PO UD 10/15/23 12/31/23 omega 7-ska-owi-fish oil 1,000 mg 1 cap PO DAILY ##0 10/15/23 12/31/23 (120 mg-180 mg) capsule (Fish Oil) phenazopyridine 200 mg tablet 200 mg PO Q8H PRN Other 10/15/23 12/31/23 (Pyridium) tamsulosin 0.4 mg capsule 0.4 mg PO DAILY PRN Other 10/15/23 12/31/23 valacyclovir 1 gram tablet 1 mg PO DIRECTED PRN Cold Sores 10/15/23 12/31/23 Previous Rx's Medication Instructions Recorded ondansetron 4 mg disintegrating 4 mg PO Q6H PRN nausea and 09/07/20 tablet vomiting #20 tabs docusate sodium 100 mg capsule 100 mg PO BID #60 caps 02/01/23 oxybutynin chloride 5 mg tablet 5 mg PO Q8H PRN bladder spasms #90 02/01/23 tabs pantoprazole 40 mg tablet,delayed 40 mg PO DAILY #30 tabs 02/01/23 release L.acidop,casei,lactis,rham-B.lact,tank 2 cap PO DAILY #60 caps 10/19/23 625 mg (10 billion cell) capsule (Advanced Probiotic) cyanocobalamin (vitamin B-12) 500 1,000 mcg (2 x 500 mcg) PO QAM #60 10/19/23 mcg tablet tabs Results & Data (ED) Vital Signs Vital Signs - 24 hr 01/01/24 08:17 01/01/24 08:17 Temperature 36.7 C Temperature Source Oral Pulse Rate [Right Finger] 74 Respiratory Rate 16 Blood Pressure [Left Arm] 119/75 Blood Pressure Mean [Left Arm] 89 Blood Pressure Position [Left Arm] Sitting Pulse Oximetry 95 Oxygen Delivery Method Room Air EWS Level of Consciousness - Last Result Spontaneously Alert EWS Temperature - Last Result 36.7 EWS Respiratory Rate - Last Result 16 EWS Oxygen Saturation - Last Result 95 EWS Oxygen in Use - Last Result No EWS Score 1 EWS Clinical Risk Low Risk Laboratory Data 01/02/24 06:04 01/01/24 05:22 Lab Results 12/31/23 12/31/23 12/31/23 Range/Units 04:30 11:54 17:22 WBC 2.66 L (4.8-10.8) K/ul RBC 4.45 (4.20-5.40) M/uL Hgb 13.2 (12.0-16.0) g/dl Hct 39.2 (37.0-47.0) % MCV 88.1 (80.0-100.0) fL MCH 29.7 (25.0-34.0) pg MCHC 33.7 (32.0-36.0) g/dL RDW Std Deviation 43.0 (36.4-46.3) fL RDW Coeff of Uma 13.2 (11.5-14.5) % Plt Count 152 (130-400) K/uL MPV 9.7 (9.4-12.4) fL Immature Gran % (Auto) 0.0 % Neut % (Auto) 45.5 % Lymph % (Auto) 35.7 % Cache % (Auto) 15.4 % Eos % (Auto) 2.3 % Baso % (Auto) 1.1 % Neut # (Auto) 1.21 L (1.40-6.50) K/uL Lymph # (Auto) 0.95 L (1.20-3.40) K/uL Cache # (Auto) 0.41 (0.11-0.59) K/uL Eos # (Auto) 0.06 (0.00-0.50) K/uL Baso # (Auto) 0.03 (0.00-0.20) K/uL Immature Gran # (Auto) 0.00 L (0.01-0.20) K/uL PT 11.5 (9.0-12.0) Seconds INR 1.1 (0.9-1.1) APTT 29 (21-31) Seconds PTT Ratio 1.1 Sodium 140 (136-145) mmol/L Potassium 3.9 (3.5-5.1) mmol/L Chloride 105 (98-107) mmol/L Carbon Dioxide 29 (21-32) mmol/L Anion Gap 6 (3-11) BUN 18 (6-23) mg/dl Creatinine 0.78 (0.6-1.2) mg/dl Est Cr Clr Drug Dosing 67.1 ml/min eGFR 87.44 BUN/Creatinine Ratio 23.1 H (10-20) Glucose 104 H (70-99(Fasting)) mg/dl Calcium 9.3 (8.6-10.3) mg/dl Phosphorus (2.5-4.9) mg/dl Magnesium (1.7-2.4) mg/dl Total Bilirubin 0.7 (0.2-1.0) mg/dl AST 17 (13-39) U/L ALT 8 (7-52) U/L Alkaline Phosphatase 50 (34-104) U/L Troponin I High Sens 3.7 < 2.3 2.6 (0-14) pg/ml Total Protein 7.2 (6.0-8.3) gm/dl Albumin 4.6 (3.4-5.0) gm/dl Globulin 2.6 (2.5-4.0) gm/dl Albumin/Globulin Ratio 1.8 (0.9-2) Adenovirus (PCR) (NotDetected) B. pertussis DNA (PCR) (NotDetected) B.parapertussis DNA PCR (NotDetected) C. pneumoniae DNA (PCR) (NotDetected) Coronavirus OC43 (PCR) (NotDetected) Coronavirus HKU1 (PCR) (NotDetected) Coronavirus 229E (PCR) (NotDetected) SARS-CoV-2 (PCR) (NotDetected) Coronavirus NL63 (PCR) (NotDetected) Human Metapneumovir PCR (NotDetected) Influenza Type A (PCR) (NotDetected) Influenza Type B (PCR) (NotDetected) M. pneumoniae (PCR) (NotDetected) Parainfluenza 1 (PCR) (NotDetected) Parainfluenza 2 (PCR) (NotDetected) Parainfluenza 3 (PCR) (NotDetected) Parainfluenza 4 (PCR) (NotDetected) RSV (PCR) (NotDetected) Entero/Rhino (PCR) (NotDetected) 12/31/23 12/31/23 01/01/24 Range/Units 22:31 Unknown 05:22 WBC 2.36 L (4.8-10.8) K/ul RBC 4.05 L (4.20-5.40) M/uL Hgb 11.7 L (12.0-16.0) g/dl Hct 34.8 L (37.0-47.0) % MCV 85.9 (80.0-100.0) fL MCH 28.9 (25.0-34.0) pg MCHC 33.6 (32.0-36.0) g/dL RDW Std Deviation 40.7 (36.4-46.3) fL RDW Coeff of Uma 13.0 (11.5-14.5) % Plt Count 138 (130-400) K/uL MPV 10.3 (9.4-12.4) fL Immature Gran % (Auto) % Neut % (Auto) % Lymph % (Auto) % Cache % (Auto) % Eos % (Auto) % Baso % (Auto) % Neut # (Auto) (1.40-6.50) K/uL Lymph # (Auto) (1.20-3.40) K/uL Cache # (Auto) (0.11-0.59) K/uL Eos # (Auto) (0.00-0.50) K/uL Baso # (Auto) (0.00-0.20) K/uL Immature Gran # (Auto) (0.01-0.20) K/uL PT (9.0-12.0) Seconds INR (0.9-1.1) APTT (21-31) Seconds PTT Ratio Sodium 138 (136-145) mmol/L Potassium 3.8 (3.5-5.1) mmol/L Chloride 106 (98-107) mmol/L Carbon Dioxide 25 (21-32) mmol/L Anion Gap 7 (3-11) BUN 14 (6-23) mg/dl Creatinine 0.64 (0.6-1.2) mg/dl Est Cr Clr Drug Dosing 81.7 ml/min eGFR 101.74 BUN/Creatinine Ratio 21.9 H (10-20) Glucose 87 (70-99(Fasting)) mg/dl Calcium 8.6 (8.6-10.3) mg/dl Phosphorus 2.8 (2.5-4.9) mg/dl Magnesium 1.9 (1.7-2.4) mg/dl Total Bilirubin (0.2-1.0) mg/dl AST (13-39) U/L ALT (7-52) U/L Alkaline Phosphatase (34-104) U/L Troponin I High Sens 11.7 D 5.5 D (0-14) pg/ml Total Protein (6.0-8.3) gm/dl Albumin (3.4-5.0) gm/dl Globulin (2.5-4.0) gm/dl Albumin/Globulin Ratio (0.9-2) Adenovirus (PCR) Not Detected (NotDetected) B. pertussis DNA (PCR) Not Detected (NotDetected) B.parapertussis DNA PCR Not Detected (NotDetected) C. pneumoniae DNA (PCR) Not Detected (NotDetected) Coronavirus OC43 (PCR) Not Detected (NotDetected) Coronavirus HKU1 (PCR) Not Detected (NotDetected) Coronavirus 229E (PCR) Not Detected (NotDetected) SARS-CoV-2 (PCR) Not Detected (NotDetected) Coronavirus NL63 (PCR) Not Detected (NotDetected) Human Metapneumovir PCR Not Detected (NotDetected) Influenza Type A (PCR) Not Detected (NotDetected) Influenza Type B (PCR) Not Detected (NotDetected) M. pneumoniae (PCR) Not Detected (NotDetected) Parainfluenza 1 (PCR) Not Detected (NotDetected) Parainfluenza 2 (PCR) Not Detected (NotDetected) Parainfluenza 3 (PCR) Not Detected (NotDetected) Parainfluenza 4 (PCR) Not Detected (NotDetected) RSV (PCR) Not Detected (NotDetected) Entero/Rhino (PCR) Not Detected (NotDetected) Administered Medications Ascorbic Acid (Ascorbic Acid 500 Mg Tab) 500 mg PO QAM [facility] Stop: 01/31/24 08:59 Last Admin: 01/01/24 07:55 Dose: Not Given Documented By: DEANA Cyanocobalamin (Cyanocobalamin (B-12) 500 Mcg Tablet) 1,000 mcg PO QAM [facility] Stop: 01/31/24 08:59 Last Admin: 01/01/24 07:54 Dose: Not Given Documented By: DEANA Docusate Sodium (Docusate Sodium 100 Mg Cap) 100 mg PO BID [facility] Stop: 01/30/24 20:59 Last Admin: 01/01/24 20:25 Dose: 100 mg Documented By: Admin: 01/01/24 07:57 Dose: 100 mg Documented By: Admin: 12/31/23 20:03 Dose: 100 mg Documented By: PALAK Folic Acid (Folic Acid 400 Mcg Tab) [facility] [place] Stop: 01/31/24 08:59 Last Admin: 01/01/24 07:54 Dose: Not Given Documented By: DEANA Hydromorphone HCl (Hydromorphone Inj 0.5 Mg/0.5 Ml Syr) 0.5 mg IV Q3H PRN PRN Reason: severe pain Stop: 01/15/24 13:29 Last Admin: 01/02/24 03:46 Dose: 0.5 mg Documented By: Admin: 01/01/24 18:33 Dose: 0.5 mg Documented By: DEANA Pantoprazole Sodium (Protonix) 40 mg in 10 mls @ 5 mls/min IV BID [facility] Stop: 01/30/24 20:59 Last Admin: 01/01/24 20:29 Dose: 5 mls/min Documented By: Admin: 01/01/24 07:52 Dose: 5 mls/min Documented By: Admin: 12/31/23 20:04 Dose: 5 mls/min Documented By: PALAK Lactated Ringer's (Lr) 1,000 mls @ 100 mls/hr IV .Q10H [facility] Stop: 01/03/24 13:14 Last Admin: 01/02/24 00:29 Dose: 100 mls/hr Documented By: Infusion: 01/02/24 00:29 Dose: Infused Documented By: Infusion: 01/02/24 00:24 Dose: 80 mls/hr Documented By: Admin: 01/01/24 13:58 Dose: 80 mls/hr Documented By: Infusion: 01/01/24 13:58 Dose: Infused Documented By: Admin: 01/01/24 02:23 Dose: 80 mls/hr Documented By: Infusion: 01/01/24 02:23 Dose: Infused Documented By: Admin: 12/31/23 14:20 Dose: 80 mls/hr Documented By: PRIYANKA Lactobacillus Acidophilus (Advanced Probiotic 625 Mg Capsule) 625 mg PO DAILY [facility] Stop: 01/31/24 08:59 Last Admin: 01/01/24 07:54 Dose: Not Given Documented By: DEANA Levothyroxine Sodium (Levothyroxine Sodium 25 Mcg Tablet) 25 mcg PO MoTuWeThFrSa@0630 [facility] Stop: 01/30/24 12:29 Last Admin: 01/01/24 06:12 Dose: 25 mcg Documented By: Admin: 12/31/23 12:43 Dose: 25 mcg Documented By: PRIYANKA Levothyroxine Sodium (Levothyroxine Sodium 25 Mcg Tablet) 50 mcg PO Vera@0630 [facility] Stop: 02/01/24 06:29 Last Admin: 01/02/24 06:09 Dose: 50 mcg Documented By: PALAK Lidocaine (Lidocaine 5% 1 Patch) 1 patch TD 1900 [facility] Stop: 01/31/24 18:59 Last Admin: 01/01/24 18:28 Dose: 1 patch Documented By: DEANA Lorazepam (Lorazepam 2 Mg/1 Ml Vial) 1 mg IV Q8H PRN PRN Reason: Anxiety/Agitation Stop: 01/31/24 13:45 Last Admin: 01/01/24 21:22 Dose: 1 mg Documented By: JR Miscellaneous (Remove Lidoderm Patch) 1 each N/A DAILY@0700 [facility] Stop: 01/31/24 06:59 Last Admin: 01/02/24 06:09 Dose: 1 each Documented By: Admin: 01/01/24 06:12 Dose: 1 each Documented By: PALAK Multi-Ingredient Mouthwash/Gargle (First - Mouthwash Blm 119 Ml) 5 ml PO ACHS [facility] Stop: 01/30/24 16:29 Last Admin: 01/01/24 23:45 Dose: Not Given Documented By: Admin: 01/01/24 16:32 Dose: 5 ml Documented By: Admin: 01/01/24 11:40 Dose: 5 ml Documented By: Admin: 01/01/24 06:45 Dose: 5 ml Documented By: Admin: 12/31/23 21:00 Dose: 5 ml Documented By: Admin: 12/31/23 17:34 Dose: 5 ml Documented By: PRIYANKA Multivitamins (Multivitamin Tab) 1 tab PO QAM [facility] Stop: 01/31/24 08:59 Last Admin: 01/01/24 07:54 Dose: Not Given Documented By: DEANA Nitroglycerin (Nitroglycerin Sl 0.4 Mg/Tab Tab) 0.4 mg SL Q5M PRN PRN Reason: Chest Pain Stop: 01/31/24 09:14 Last Admin: 01/01/24 09:57 Dose: 0.4 mg Documented By: DEANA Ondansetron HCl (Ondansetron Inj 2 Mg/Ml 2 Ml Vial) 4 mg IV Q6H PRN PRN Reason: Nausea Stop: 01/30/24 11:17 Last Admin: 12/31/23 21:09 Dose: 4 mg Documented By: PALAK Vitamin D (Cholecalciferol 125 Mcg (5,000 Units) Tab) 125 mcg PO DAILY [facility] Stop: 01/30/24 11:59 Last Admin: 01/01/24 07:54 Dose: Not Given Documented By: Admin: 12/31/23 12:43 Dose: 125 mcg Documented By: PRIYANKA Discontinued Medications Al Hydrox/Mg Hydrox/Simethicone (Aluminum/Magnesium/Simeth (Maalox Max) 30 Ml Udc) 30 ml PO NOW STA Stop: 01/01/24 13:23 Last Admin: 01/01/24 13:52 Dose: 30 ml Documented By: DEANA Hydromorphone HCl (Hydromorphone Inj 0.5 Mg/0.5 Ml Syr) 0.5 mg IV NOW STA Stop: 12/31/23 05:29 Last Admin: 12/31/23 05:40 Dose: 0.5 mg Documented By: TAO Hydromorphone HCl (Hydromorphone Inj 0.5 Mg/0.5 Ml Syr) 0.5 mg IV NOW STA Stop: 12/31/23 08:29 Last Admin: 12/31/23 08:33 Dose: 0.5 mg Documented By: SRChepe Hydromorphone HCl (Hydromorphone Inj 0.5 Mg/0.5 Ml Syr) 0.5 mg IV Q4H PRN PRN Reason: moderate to severe pain Stop: 01/14/24 12:54 Last Admin: 01/01/24 12:48 Dose: 0.5 mg Documented By: Admin: 01/01/24 06:45 Dose: 0.5 mg Documented By: Admin: 12/31/23 23:01 Dose: 0.5 mg Documented By: Admin: 12/31/23 15:42 Dose: 0.5 mg Documented By: PRIYANKA Hydromorphone HCl (Hydromorphone Inj 0.5 Mg/0.5 Ml Syr) 0.5 mg IV Q3H [facility] Stop: 01/15/24 13:29 Last Admin: 01/01/24 14:13 Dose: Not Given Documented By: DEANA Hyoscyamine (Hyoscyamine Sulfate 0.125 Mg Tab) 0.125 mg SL NOW STA Stop: 01/01/24 09:59 Last Admin: 01/01/24 11:07 Dose: 0.125 mg Documented By: DEANA Famotidine (Pepcid 20mg Iv Push) 20 mg in 5 mls @ 2.5 mls/min IV NOW STA Stop: 12/31/23 05:30 Last Admin: 12/31/23 05:39 Dose: 2.5 mls/min Documented By: TAO Pantoprazole Sodium (Protonix) 40 mg in 10 mls @ 5 mls/min IV NOW ONE Stop: 12/31/23 13:16 Last Admin: 12/31/23 14:21 Dose: 5 mls/min Documented By: PRIYANKA Acetaminophen (Ofirmev) 1,000 mg in 100 mls @ 400 mls/hr IV NOW STA Stop: 01/01/24 21:27 Last Admin: 01/01/24 23:45 Dose: Not Given Documented By: PALAK Ioversol (Optiray 320 125ml) 117 ml IV ONCE ONE Stop: 12/31/23 06:13 Last Admin: 12/31/23 06:12 Dose: 117 ml Documented By: CIERRA Lidocaine (Lidocaine 5% 1 Patch) 1 patch TD NOW STA Stop: 12/31/23 18:48 Last Admin: 12/31/23 18:58 Dose: 1 patch Documented By: PALAK Morphine Sulfate (Morphine Sulfate 2 Mg/Ml Carp) 2 mg IV Q6H PRN PRN Reason: Mod-Sev Pain (Scale 4-10) Stop: 01/14/24 10:57 Last Admin: 12/31/23 11:25 Dose: 2 mg Documented By: PRIYANKA Morphine Sulfate (Morphine Sulfate 2 Mg/Ml Carp) 2 mg IV Q4H PRN PRN Reason: moderate pain Stop: 01/14/24 17:42 Last Admin: 01/01/24 10:08 Dose: 2 mg Documented By: Admin: 12/31/23 18:14 Dose: 2 mg Documented By: PRIYANKA Nitroglycerin (Nitroglycerin Sl 0.4 Mg/Tab Tab) 0.4 mg SL NOW STA Stop: 01/01/24 09:19 Last Admin: 01/01/24 09:39 Dose: 0.4 mg Documented By: DEANA Ondansetron HCl (Ondansetron Inj 2 Mg/Ml 2 Ml Vial) 4 mg IV NOW STA Stop: 12/31/23 05:30 Last Admin: 12/31/23 05:39 Dose: 4 mg Documented By: AAW Discharge Plan Visit Data Chief Complaint: Chest Pain Stated Complaint: chest pain, sob, abd pain ED Provider: Renée Farley Discharge Problem: Esophageal spasm, Odynophagia, Atypical chest pain Patient Disposition: Admitted As Inpatient Discharge Instructions Interventions: ED Discharge Assessment Last Done: 12/31/23 10:50
[2023-12-31] MEDS: OPTIRAY 320 125ml IV ONE (06:12)
[2023-12-31 06:49] LABS: Adenovirus PCR Not Detected (NotDetected); Bordetella parapertussis PCR Not Detected (NotDetected); Bordetella pertussis PCR Not Detected (NotDetected); Chlamydia pneumoniae PCR Not Detected (NotDetected); Coronavirus 229E PCR Not Detected (NotDetected); Coronavirus CoV-2 (COVID19)PCR Not Detected (NotDetected); Coronavirus HKU1 PCR Not Detected (NotDetected); Coronavirus NL63 PCR Not Detected (NotDetected); Coronavirus OC43PCR Not Detected (NotDetected); Human Metapneumovirus PCR Not Detected (NotDetected); Influenza A PCR Not Detected (NotDetected); Influenza B PCR Not Detected (NotDetected); Mycoplasma pneumoniae PCR Not Detected (NotDetected); Parainfluenza Virus 1 PCR Not Detected (NotDetected); Parainfluenza Virus 2 PCR Not Detected (NotDetected); Parainfluenza Virus 3 PCR Not Detected (NotDetected); Parainfluenza Virus 4 PCR Not Detected (NotDetected); Respiratory Syncytial VirusPCR Not Detected (NotDetected); Rhinovirus/Enterovirus PCR Not Detected (NotDetected)
--- NOTE | 2023-12-31 08:32 | Electrocardiogram Report ---
Test Reason : Blood Pressure : */* mmHG Vent. Rate : 72 BPM Atrial Rate : 72 BPM P-R Int : 196 ms QRS Dur : 118 ms QT Int : 428 ms P-R-T Axes : 51 -1 -28 degrees QTcB Int : 468 ms Normal sinus rhythm Low voltage QRS Incomplete right bundle branch block ST and T wave changes concerning for ischemia Abnormal ECG When compared with ECG of 16-Oct-2023 22:27, T wave inversion now evident in Inferior leads T wave inversion more evident in Anterior leads Confirmed by Ash Steven ([id number]) on 12/31/2023 8:32:08 AM Referred By: Confirmed By: Ash Steven
--- NOTE | 2023-12-31 08:39 | CT Scan Report ---
Exam(s): CTA CHEST IV Amt: 117 cc opti 320 EXAM: CT Angiography Chest With Intravenous Contrast CLINICAL HISTORY: Reason for exam: PE. TECHNIQUE: Axial computed tomographic angiography images of the chest with intravenous contrast. CTDI is 16.62 mGy and DLP is 8.31 mGy-cm. Automated exposure control was utilized for the study. A dose lowering technique was utilized adhering to the principles of ALARA. MIP reconstructed images were created and reviewed. COMPARISON: No relevant prior studies available. FINDINGS: Pulmonary arteries: Motion artifact mildly limits evaluation of smaller branches. Despite this, no evidence of pulmonary embolism within the pulmonary outflow tract or proximal branches. Aorta: Atherosclerotic disease. No thoracic aortic aneurysm. Lungs: Dilated left upper lobe and ligula bronchi with debris. Findings may relate to sequelae of chronic infection/aspiration. Air- trapping noted within the left upper lobe and left lower lobe which may be due to phase of expiration. Obstructive lung pathologies are also possible. No mass. Pleural space: Unremarkable. No significant effusion. No pneumothorax. Heart: Unremarkable. No cardiomegaly. No significant pericardial effusion. No evidence of RV dysfunction. Bones/joints: Sternotomy changes. Degenerative changes in the spine. No acute fracture. No dislocation. Soft tissues: Unremarkable. Lymph nodes: Unremarkable. No enlarged lymph nodes. Kidneys and ureters: Nonobstructive calculi within the left kidney, the largest within the interpolar left kidney measuring up to 3 mm. Tubes, lines and devices: Left subclavian central venous catheter tip in the approach pacemaker with leads superior vena cava. IMPRESSION: 1. Motion artifact mildly limits evaluation of smaller branches. Despite this, no evidence of pulmonary embolism within the pulmonary outflow tract or proximal branches. 2. Dilated left upper lobe and ligula bronchi with debris. Findings may relate to sequelae of chronic infection/aspiration. 3. Air-trapping noted within the left upper lobe and left lower lobe which may be due to phase of expiration. Obstructive lung pathologies are also possible. 4. No other acute findings. 5. Incidental findings as described. Electronically signed by: Barrington Wills MD 12/31/23 08:37 AM
--- NOTE | 2023-12-31 08:47 | XRay Report ---
XR chest 1V not portable HISTORY: 58 years-old Female Chest pain, nonspecific COMPARISON: CTA chest of same day, chest radiograph 10/15/2023 TECHNIQUE: AP view of the chest DOS 01/28/2023. FINDINGS: Cardiac silhouette is upper limits of normal. Dual lead left subclavian pacer. No pneumothorax, pleur al effusion, airspace consolidation or pulmonary edema. Ill-defined left midlung opacity correspondin g with the impacted expanded peribronchial atresia seen on prior chest CT. 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 IMPRESSION: 1. No acute process of the chest. 2. Lingular and left lower lobe atresia better seen on same-day chest CT. ACT 112: Negative or not required by law. The above report was generated using voice recognition software. It may contain grammatical, syntax o r spelling errors. Electronically signed by: Tony Saab M.D. 12/31/2023 8:11 AM
--- NOTE | 2023-12-31 09:32 | History & Physical Report ---
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 Patient reports that she has been dealing with chest discomfort and intermittent bouts of sharp/stabbing chest pain for about a week now. She was recently seen by LING Diamond [[facility]] on 12/24/2023 for these same symptoms and was diagnosed with probable GERD. However her omeprazole dosage was increased without any relief. Her chest discomfort is constant and radiates across her entire chest wall into her bilateral rib regions. She also gets these bouts of sharp/stabbing pain in her substernal chest region that radiate up from her epigastric region multiple times per day. These episodes of sharp/stabbing pain can come on at any time however they always occur when she drinks or eats. Patient denies the sensation of food getting stuck in her throat. Chest Pain/Discomfort, Epigastric Pain: History as per above. EKG reveals some ST and T wave changes in the inferior/anterior leads although her initial troponin was negative. CXR negative. Chest CTA without evidence of PE however does note findings in the AUGUSTUS concerning for possible chronic infection/aspiration. No infectious symptoms reported, vitals stable. Less likely an infectious etiology as this point. Suspicion for esophagitis vs esophageal spasms. Hold home alendronate and ASA for now as these medications can cause esophageal mucosal injury. Trend troponin Q6H. EKG w/ chest pain PRN. Pacemaker interrogation pending. Cardiology and GI consulted. H pylori stool antigen pending. Updated echo pending. NPO for now. IV PPI BID. Gentle IVF. PRN pain control. EKG tomorrow AM. Lyme Carditis, 2nd Degree Av Block S/P Pacemaker Placement: Patient was recently admitted under our service back in September of this year (10/15/2023 - 10/19/2023) due to Lyme carditis and second-degree AV block. She completed a 3-week course of IV ceftriaxone however her second-degree AV block did not resolve therefore she required pacemaker placement on 11/16/2023 at [facility] performed by Dr. Jaimie Gilman. Patient follows closely with Dr. 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 She had her pacemaker adjusted yesterday - reports her settings had to be "doubled" as the device was not pacing correctly. Chronic Leukopenia: WBC count typically ranges ~2k per chart review. She was found to have chronic leukopenia during her previous admission. She was evaluated by hematology/oncology and underwent bone marrow biopsy on that revealed normocellular marrow (no evidence of myelodysplasia). Other Chronic Medical Conditions: HLD, hypothyroidism --> Can continue home medications for these specific conditions. DVT Prophylaxis: SCDs/TEDs for now. Code Status: FULL CODE PCP: Salvador Pike MD Disposition: Observation in Med/Surg + Telemetry Patient seen in collaboration with Dr. Pardo. Please see addendum. I spent a total of 65 minutes coordinating, documenting, and providing care for this patient excluding time spent in the performance of separately billed services. This included personally reviewing all current laboratories and imaging studies, medical reconciliation, outpatient chart review and discussion with specialists. This chart was completed in part utilizing Speech Voice Recognition Software. Grammatical errors, random word insertions, pronoun errors, and incomplete sentences are an occasional consequence of this system due to software limitations, ambient noise, and hardware issues. Any formal questions or concerns about the content, text, or information contained within the body of this dictation should be directly addressed to the provider for clarification. 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 History obtained from patient, at bedside and associated chart review. Patient was recently admitted under our service back in September of this year (10/15/2023 - 10/19/2023) due to Lyme carditis and second-degree AV block. She completed a 3-week course of IV ceftriaxone however her second-degree AV block did not resolve therefore she required pacemaker placement on 11/16/2023 at [facility] performed by Dr. Jaimie Gilman. She was also found to have chronic leukopenia during that admission as well. She was evaluated by hematology/oncology and underwent bone marrow biopsy on 10/19/2023 that revealed normocellular marrow (no evidence of myelodysplasia). Patient follows closely with Dr. 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 She had her pacemaker adjusted yesterday - reports her settings had to be "doubled" as the device was not pacing correctly. Today, patient reports that she has been dealing with chest discomfort and intermittent bouts of sharp/stabbing chest pain for about a week now. She was r ecently seen by LING Diamond [[facility]] on 12/24/2023 for these same symptoms and was diagnosed with probable GERD. However her omeprazole dosage was increased without any relief. She reports that the chest discomfort is constant and radiates across her entire chest wall into her bilateral rib regions. She also gets these bouts of sharp/stabbing pain in her substernal chest region that radiate up from her epigastric region multiple times per day. She reports that these episodes of sharp/stabbing pain lasts anywhere from a few seconds to what feels like a couple of minutes. These episodes of sharp/stabbing pain can come on at any time however they always occur when she drinks or eats, therefore she has not been eating nor hydrating well due to the pain that occurs when she does so. She has not tried taking anything at home for her pain except omeprazole. Patient reports that it does not feel like food is getting stuck in her throat. She has been intermittently feeling like she needs to vomit however she denies any nausea at this time. She does become short of breath with these attacks of sharp/stabbing pain but otherwise her breathing has been okay. She denies any fevers, chills or body aches. Patient has previously dealt with dysphagia and underwent EGD on 06/30/2023 at [facility]. EGD at that time revealed no endoscopic esophageal abnormality to explain her dysphagia but her esophagus was ultimately dilated. She was however found to have a irregular Z-line during the EGD which was subsequently biopsied and showed squamous esophageal and cardiac mucosa with mild chronic nonspecific carditis negative for intestinal metaplasia. Patient is currently in the process of transitioning to [facility] for all of her care, except she reports that she will continue to follow with [facility]. She expresses frustration with being diagnosed with Lyme carditis as such a late stage of the disease that she required a pacemaker for development of heart block. However she is agreeable to be admitted under our service today. She is still currently following with Dr. Salvador Pike for primary care services. Patient is requesting to see [facility] and [facility] rather than [facility] specialists. Allergies Allergy/AdvReac Type Severity Reaction Status Date / Time azithromycin [From Zithromax] Allergy Severe Hives Verified 12/31/23 08:36 dihydroergotamine Allergy Severe "THROAT Verified 12/31/23 08:36 SHUTS DOWN" ketorolac Allergy Intermediate HIVES Verified 12/31/23 08:36 Milk Containing Products Allergy Intermediate Gastrointestinal Unverified 12/31/23 08:36 (Dairy) Upset Penicillins Allergy Intermediate Hives Verified 12/31/23 08:36 Home Medications Medication Instructions Recorded Confirmed Type ascorbic acid (vitamin C) 500 mg 500 mg PO QAM 11/11/17 12/31/23 History tablet (Vitamin C) conjugated estrogens 0.625 mg/gram 1 applic vaginal 2XWK 11/11/17 12/31/23 History vaginal cream (Premarin) fluticasone propionate 50 1 spray intranasal DAILY PRN 11/11/17 12/31/23 History mcg/actuation nasal Allergy Symptoms spray,suspension (Flonase Allergy Relief) folic acid 400 mcg tablet 400 mcg PO QAM 11/11/17 12/31/23 History lysine 500 mg tablet (L-Lysine) 500 mg PO DAILY PRN Cold Sore(s) 11/11/17 12/31/23 History selenium 200 mcg tablet (SelenoMax) 200 mcg PO QAM PRN illness 11/11/17 12/31/23 History sennosides 8.6 mg-docusate sodium 1 tab PO BID PRN Constipation 11/11/17 12/31/23 History 50 mg tablet (Senna-S) sumatriptan succinate 100 mg 100 mg PO UD PRN Migraine Headache 11/11/17 1 03/01/23 History tablet (Imitrex) cholecalciferol (vitamin D3) 125 5,000 units PO UD 07/03/18 12/31/23 History mcg (5,000 unit) tablet (Vitamin D3) meperidine (PF) 100 mg/mL 1 ml IM DIRECTED PRN Migraine 07/03/18 12/31/23 History injection solution Headache multivitamin (Multiple Vitamins 1 tab PO QAM 07/03/18 12/31/23 History tablet) ondansetron 4 mg disintegrating 4 mg PO Q6H PRN nausea and 09/07/20 12/31/23 Rx tablet vomiting #20 tabs ibuprofen 800 mg tablet 800 mg PO DIRECTED PRN Pain 09/26/20 12/31/23 History galcanezumab-gnlm 120 mg/mL 120 mg subcut MONTHLY 10/25/22 12/31/23 History subcutaneous syringe (Emgality) docusate sodium 100 mg capsule 100 mg PO BID #60 caps 02/01/23 12/31/23 Rx oxybutynin chloride 5 mg tablet 5 mg PO Q8H PRN bladder spasms #90 02/01/23 12/31/23 Rx tabs pantoprazole 40 mg tablet,delayed 40 mg PO DAILY #30 tabs 02/01/23 12/31/23 Rx release albuterol sulfate 90 mcg/actuation 1 puff inhalation DIRECTED PRN 10/15/23 12/31/23 History aerosol inhaler Other alendronate 70 mg tablet 70 mg PO WK 10/15/23 12/31/23 History aspirin 81 mg tablet,delayed 81 mg PO UD 10/15/23 12/31/23 History release (Adult Aspirin Regimen) levothyroxine 25 mcg tablet 25 mcg PO UD 10/15/23 12/31/23 History omega 1-gzl-fxq-fish oil 1,000 mg 1 cap PO DAILY ##0 10/15/23 12/31/23 History (120 mg-180 mg) capsule (Fish Oil) phenazopyridine 200 mg tablet 200 mg PO Q8H PRN Other 10/15/23 12/31/23 History (Pyridium) tamsulosin 0.4 mg capsule 0.4 mg PO DAILY PRN Other 10/15/23 12/31/23 History valacyclovir 1 gram tablet 1 mg PO DIRECTED PRN Cold Sores 10/15/23 12/31/23 History L.acidop,casei,lactis,rham-B.lact,tank 2 cap PO DAILY #60 caps 10/19/23 12/31/23 Rx 625 mg (10 billion cell) capsule (Advanced Probiotic) cyanocobalamin (vitamin B-12) 500 1,000 mcg (2 x 500 mcg) PO QAM #60 10/19/23 12/31/23 Rx mcg tablet tabs Past Med/Surg History Problem List Epigastric pain Lyme carditis Second degree heart block Exertional dyspnea (Acute) Imbalance Left ureteral calculus Hydronephrosis, left Chest pain (Acute) Sinusitis (Acute) Ataxia (Acute) Acute viral labyrinthitis Stroke-like symptoms possibly a symptom of lymes disease Vertigo (Acute) Hypothyroidism recent dx; no meds at this time Osteoporosis (Chronic) History of kidney stones Patent foramen ovale (Chronic 07/27/12) Medical History 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, recent incidental finding, to follow w/ Hyun Curry [facility] GERD (gastroesophageal reflux disease) Hx of transesophageal echocardiography (JON) for monitoring Calculus of distal right ureter 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 Surgical History Hx of colonoscopy History of dilatation and curettage Hx of laparoscopy Hx of cystoscopy w/ stent Hx of lithotripsy Hx of tonsillectomy H/O bilateral oophorectomy History of hysterectomy Family History Mother Cervical cancer Social History (Reviewed 12/31/23 @ 16:10 by EDWIGE Bruce Smoking Status: Never smoker Second Hand Exposure: No; Do You Dip or Chew Tobacco: No; Hx Alcohol Use: No Hx Substance Use: No Preferred Language: Russian Communication Ability: Effective Manager Mobile Required: No Beliefs That Will Affect Care: None Current Living Situation: Spouse Feels Safe at Home: Yes Assistive Devices: None Review of Systems Review of Systems: At least ten systems reviewed and negative, except as noted in the HPI. Physical Exam Physical Exam: General: Vitals as above, NAD, sitting up in bed, pleasant, conversing appropriately. A+Ox3, euthymic affect. at bedside. HEENT: Normocephalic, atraumatic. Conjunctivae normal. External ear and nose normal, oropharynx appears somewhat dry. Respiratory: Normal respiratory effort, lungs clear to auscultation, no wheeze, rales, rhonchi. No accessory muscle use. Cardiovascular: Regular rate, rhythm, no murmur, normal peripheral pulses, no BLE edema. Vessels: No JVD. Abdomen/GI: Normal bowel sounds, soft, nontender, no hepatosplenomegaly. Extremities/Musculoskeletal: No cyanosis or clubbing, extremities motor strength intact, moves all extremities. Neurologic: No focal deficits, CN's II-XI not formally tested but appear grossly intact bilaterally. Skin: No rashes, normal color, warm/dry. Results & Data Results & Data Vital Signs (Past 12 Hours) Vital Signs Temp Pulse Resp BP Pulse Ox O2 Del Method 12/31/23 08:42 68 12/31/23 08:00 57 L 17 115/75 97 12/31/23 07:00 57 L 14 112/77 96 12/31/23 06:18 66 13 94 12/31/23 06:18 117/77 12/31/23 06:18 117/77 12/31/23 06:18 117/77 12/31/23 06:18 117/77 12/31/23 06:15 63 13 96 12/31/23 05:55 69 15 97 Room Air 12/31/23 05:48 69 15 97 12/31/23 05:26 128/99 12/31/23 05:21 76 19 99 12/31/23 05:09 71 16 97 12/31/23 04:57 75 17 96 12/31/23 04:40 72 12/31/23 04:32 Room Air 12/31/23 04:21 36.6 C 73 18 124/88 96 Room Air Laboratory Results Short CBC 12/31/23 Range/Units 04:30 WBC 2.66 L (4.8-10.8) K/ul Hgb 13.2 (12.0-16.0) g/dl Hct 39.2 (37.0-47.0) % Plt Count 152 (130-400) K/uL BMP 12/31/23 04:30 Sodium 140 Potassium 3.9 Chloride 105 Carbon Dioxide 29 BUN 18 Creatinine 0.78 Glucose 104 H Calcium 9.3 Liver Function 12/31/23 Range/Units 04:30 Total Bilirubin 0.7 (0.2-1.0) mg/dl AST 17 (13-39) U/L ALT 8 (7-52) U/L Alkaline Phosphatase 50 (34-104) U/L Albumin 4.6 (3.4-5.0) gm/dl Diagnostic Findings Chest X-Ray 12/31/23 04:32 XR chest 1V not portable HISTORY: 58 years-old Female Chest pain, nonspecific COMPARISON: CTA chest of same day, chest radiograph 10/15/2023 TECHNIQUE: AP view of the chest DOS 01/28/2023. FINDINGS: Cardiac silhouette is upper limits of normal. Dual lead left subclavian pacer. No pneumothorax, pleural effusion, airspace consolidation or pulmonary edema. 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 IMPRESSION: 1. No acute process of the chest. 2. Lingular and left lower lobe atresia better seen on same-day chest CT. ACT 112: Negative or not required by law. The above report was generated using voice recognition software. It may contain grammatical, syntax or spelling errors. Electronically signed by: Tony Saab M.D. 12/31/2023 8:11 AM Chest CTA 12/31/23 05:34 Exam(s): CTA CHEST IV Amt: 117 cc opti 320 EXAM: CT Angiography Chest With Intravenous Contrast CLINICAL HISTORY: Reason for exam: PE. TECHNIQUE: Axial computed tomographic angiography images of the chest with intravenous contrast. CTDI is 16.62 mGy and DLP is 8.31 mGy-cm. Automated exposure control was utilized for the study. A dose lowering technique was utilized adhering to the principles of ALARA. MIP reconstructed images were created and reviewed. COMPARISON: No relevant prior studies available. FINDINGS: Pulmonary arteries: Motion artifact mildly limits evaluation of smaller branches. Despite this, no evidence of pulmonary embolism within the pulmonary outflow tract or proximal branches. Aorta: Atherosclerotic disease. No thoracic aortic aneurysm. Lungs: Dilated left upper lobe and ligula bronchi with debris. Findings may relate to sequelae of chronic infection/aspiration. Air- trapping noted within the left upper lobe and left lower lobe which may be due to phase of expiration. Obstructive lung pathologies are also possible. No mass. Pleural space: Unremarkable. No significant effusion. No pneumothorax. Heart: Unremarkable. No cardiomegaly. No significant pericardial effusion. No evidence of RV dysfunction. Bones/joints: Sternotomy changes. Degenerative changes in the spine. No acute fracture. No dislocation. Soft tissues: Unremarkable. Lymph nodes: Unremarkable. No enlarged lymph nodes. Kidneys and ureters: Nonobstructive calculi within the left kidney, the largest within the interpolar left kidney measuring up to 3 mm. Tubes, lines and devices: Left subclavian central venous catheter tip in the approach pacemaker with leads superior vena cava. IMPRESSION: 1. Motion artifact mildly limits evaluation of smaller branches. Despite this, no evidence of pulmonary embolism within the pulmonary outflow tract or proximal branches. 2. Dilated left upper lobe and ligula bronchi with debris. Findings may relate to sequelae of chronic infection/aspiration. 3. Air-trapping noted within the left upper lobe and left lower lobe which may be due to phase of expiration. Obstructive lung pathologies are also possible. 4. No other acute findings. 5. Incidental findings as described. Electronically signed by: Barrington Wills MD 12/31/23 08:37 AM Medications Administered Discontinued Medications Hydromorphone HCl (Hydromorphone Inj 0.5 Mg/0.5 Ml Syr) 0.5 mg IV NOW STA Stop: 12/31/23 05:29 Last Admin: 12/31/23 05:40 Dose: 0.5 mg Documented By: TAO Hydromorphone HCl (Hydromorphone Inj 0.5 Mg/0.5 Ml Syr) 0.5 mg IV NOW STA Stop: 12/31/23 08:29 Last Admin: 12/31/23 08:33 Dose: 0.5 mg Documented By: SRL Famotidine (Pepcid 20mg Iv Push) 20 mg in 5 mls @ 2.5 mls/min IV NOW STA Stop: 12/31/23 05:30 Last Admin: 12/31/23 05:39 Dose: 2.5 mls/min Documented By: TAO Ioversol (Optiray 320 125ml) 117 ml IV ONCE ONE Stop: 12/31/23 06:13 Last Admin: 12/31/23 06:12 Dose: 117 ml Documented By: GES Ondansetron HCl (Ondansetron Inj 2 Mg/Ml 2 Ml Vial) 4 mg IV NOW STA Stop: 12/31/23 05:30 Last Admin: 12/31/23 05:39 Dose: 4 mg Documented By: TAO Code Status & VTE Plan Code Status FULL CODE Supervising Physician Co-Signing Physician Notes Attending Addendum: Case reviewed with the advanced practitioner. I have personally performed a history and physical examination on the patient. I have reviewed the advanced practitioner's documentation on the date of service referenced in note, and I agree with, and take responsibility for the plan of care. please refer to her notes for full details patient seen and examined, records reviewed by myself as well on exam, patient seen resting in bed, still uncomfortable due to midsternal pain- sharp, worse with swallowing liquids and solids no dyspnea, palpitations, dizziness no other symptoms VS noted and reviewed oriented , not in distress, speaks in sentences with no effort nor accessory muscle use normal rate, regular rhythm, no murmurs clear breath sounds bilaterally non distended, soft, nontender no bipedal edema, erythema, warmth no neuro deficits all labs, imaging noted and reviewed ASSESSMENT AND PLAN> MIDSTERNAL CHEST PAIN LIKELY ESOPHAGEAL PROCESS IN ETIOLOGY POSSIBLE ESOPHAGITIS, CHRONIC FOSAMAX USE POSSIBLE SEVERE GASTRITIS, PEPTIC ULCER DISEASE CT chest: no pulmonary embolism Protonix IV BID PRN Dilaudid, Morphine discussed with GI Dr. Gates- trial of magic mouthwash ACHS, advance diet as tolerated, plan for EGD as outpatient on Wednesday RECENT PACEMAKER PLACEMENT FOR 2ND DEGREE AV BLOCK, LYME CARDITIS (+) t wave inversions, inferior and anterior leads Troponins negative Cardiology service consulted plan of care discussed with patient and her in detail and at length all questions answered they are understanding, agreeable, comfortable with the plan of care other diagnoses and plan of care as per advanced practitioner's notes Stu Pardo MD (1) Chest pain Chest pain type: unspecified Qualified Code(s): R07.9 - Chest pain, unspecified
[2023-12-31] MEDS: MoRPHine SULFATE 2 MG/ML CARP IV PRN ×2 (11:25→18:14)
[2023-12-31] MEDS ORDERED: FLUTICASONE PROPIONATE NA SPR 16 GM BTL PRN (11:50)
[2023-12-31] MEDS ORDERED: ASPIRIN 81 MG ECTAB PO SCH (12:00)
[2023-12-31] MEDS: CHOLECALCIFEROL 125 MCG (5,000 UNITS) TAB PO SCH (12:43)
[2023-12-31] MEDS: LEVOTHYROXINE SODIUM 25 MCG TABLET PO SCH (12:43)
--- NOTE | 2023-12-31 13:29 | Gastrointestinal Consultation ---
Date of Consultation December 31, 2023 Assessment & Plan (1) Chest pain: Discussed with Dr. Maxwell. Primary team consulted GI for concern of esophagitis, however her symptoms are very atypical and her BID Omeprazole would have been an appropriate intervention for esophagitis. This unfortunately made no impact. Recent EGD was without esophagitis, PUD, strictures, or rings. Her symptoms do sound more like spasms. Before considering repeating an EGD, would obtain a barium swallow for further information regarding this atypical presentation while awaiting cardiology consultation. Would also ask for clarification from medical team regarding lung findings on CT imaging. For now, can continue BID PPI therapy with Protonix 40 mg BID, though PPI therapy has not helped thus far. Further GI recommendations pending results of this work-up & cardiology evaluation. Supervising Physician Co-Signing Physician Notes I examined the patient and reviewed patient's chart , laboratory data and imaging studies. I agree with with assessment and plan of care as suggested by advanced practice provider. Odynophagia and chest pain of 1 week duration. Cardiology consultation rule out cardiac origin. Differential diagnosis of odynophagia: Pill esophagitis due to Fosamax, viral esophagitis, possibly herpetic. Begin swish and swallow. If tolerates clear liquids okay to discharge during the weekend. The patient is scheduled for an EGD on January 02. This can be done as an outpatient. She should be n.p.o. after midnight on Wednesday. History of Present Illness Reason for Consultation: "Odynophagia" Attending Physician: Stu Pardo MD History of Present Illness Patient is a 58 yo female with PMH of HLD, prediabetes, hypothyroidism, Lyme carditis, second-degree AV block s/p pacemaker placement, atrial septal aneurysm, renal stones, left hydronephrosis, migraines, osteoporosis, and neutropenia who presented to the ED for chest pain. She was recently hospitalized for Lyme Carditis and 2nd degree AV block. She had a pacemaker placed on 11/16/[address] [facility]. She reports that in the past week, she had seen her local [facility] Help Desk Analyst. Her pacemaker was not working correctly and it was reportedly adjusted. She has been having ongoing chest discomfort in the sterum with radiation around her ribs bilaterally. She saw her Cardiology [facility]OR[facility] MASTER and was told it was likely reflux. Omeprazole once daily did not help. It was then adjusted to BID and still no change in symptoms. She notes that the episodes can occur at any time, but when she eats/drinks she notices a spasming feeling. She does not feel things catch in her throat. She notes shortness of breath with these episodes. 6 months ago she had an EGD for dysphagia with [facility]. It did not demonstrate any abnormalities to explain her dysphagia but the decision was made to dilate the esophagus empirically. This did not change anything for the patient. Biopsies showed squamous esophageal and cardiac mucosa with mild chronic inflammation. No intestinal metaplasia noted. CTA Chest: 1. Motion artifact mildly limits evaluation of smaller branches. Despite this, no evidence of pulmonary embolism within the pulmonary outflow tract or proximal branches. 2. Dilated left upper lobe and ligula bronchi with debris. Findings may relate to sequelae of chronic infection/aspiration. 3. Air-trapping noted within the left upper lobe and left lower lobe which may be due to phase of expiration. Obstructive lung pathologies are also possible. 4. No other acute findings. 5. Incidental findings as described. She notes that the only thing that has improved her symptoms since being in the hospital is IV pain medication. A cardiology consult is placed. Allergies Allergy/AdvReac Type Severity Reaction Status Date / Time azithromycin [From Zithromax] Allergy Severe Hives Verified 12/31/23 08:36 dihydroergotamine Allergy Severe "THROAT Verified 12/31/23 08:36 SHUTS DOWN" ketorolac Allergy Intermediate HIVES Verified 12/31/23 08:36 Milk Containing Products Allergy Intermediate Gastrointestinal Unverified 12/31/23 08:36 (Dairy) Upset Penicillins Allergy Intermediate Hives Verified 12/31/23 08:36 Home Medications Medication Instructions Recorded Confirmed Type ascorbic acid (vitamin C) 500 mg 500 mg PO QAM 11/11/17 12/31/23 History tablet (Vitamin C) conjugated estrogens 0.625 mg/gram 1 applic vaginal 2XWK 11/11/17 12/31/23 History vaginal cream (Premarin) fluticasone propionate 50 1 spray intranasal DAILY PRN 11/11/17 12/31/23 History mcg/actuation nasal Allergy Symptoms spray,suspension (Flonase Allergy Relief) folic acid 400 mcg tablet 400 mcg PO QAM 11/11/17 12/31/23 History lysine 500 mg tablet (L-Lysine) 500 mg PO DAILY PRN Cold Sore(s) 11/11/17 12/31/23 History selenium 200 mcg tablet (SelenoMax) 200 mcg PO QAM PRN illness 11/11/17 12/31/23 History sennosides 8.6 mg-docusate sodium 1 tab PO BID PRN Constipation 11/11/17 12/31/23 History 50 mg tablet (Senna-S) sumatriptan succinate 100 mg 100 mg PO UD PRN Migraine Headache 11/11/17 12/31/23 History tablet (Imitrex) cholecalciferol (vitamin D3) 125 5,000 units PO UD 07/03/18 12/31/23 History mcg (5,000 unit) tablet (Vitamin D3) meperidine (PF) 100 mg/mL 1 ml IM DIRECTED PRN Migraine 07/03/18 12/31/23 History injection solution Headache multivitamin (Multiple Vitamins 1 tab PO QAM 07/03/18 12/31/23 History tablet) ondansetron 4 mg disintegrating 4 mg PO Q6H PRN nausea and 09/07/20 12/31/23 Rx tablet vomiting #20 tabs ibuprofen 800 mg tablet 800 mg PO DIRECTED PRN Pain 09/26/20 12/31/23 History galcanezumab-gnlm 120 mg/mL 120 mg subcut MONTHLY 10/25/22 12/31/23 History subcutaneous syringe (Emgality) docusate sodium 100 mg capsule 100 mg PO BID #60 caps 02/01/23 12/31/23 Rx oxybutynin chloride 5 mg tablet 5 mg PO Q8H PRN bladder spasms #90 02/01/23 12/31/23 Rx tabs pantoprazole 40 mg tablet,delayed 40 mg PO DAILY #30 tabs 02/01/23 12/31/23 Rx release albuterol sulfate 90 mcg/actuation 1 puff inhalation DIRECTED PRN 10/15/23 12/31/23 History aerosol inhaler Other alendronate 70 mg tablet 70 mg PO WK 10/15/23 12/31/23 History aspirin 81 mg tablet,delayed 81 mg PO UD 10/15/23 12/31/23 History release (Adult Aspirin Regimen) levothyroxine 25 mcg tablet 25 mcg PO UD 10/15/23 12/31/23 History omega 1-dbl-qcq-fish oil 1,000 mg 1 cap PO DAILY ##0 10/15/23 12/31/23 History (120 mg-180 mg) capsule (Fish Oil) phenazopyridine 200 mg tablet 200 mg PO Q8H PRN Other 10/15/23 12/31/23 History (Pyridium) tamsulosin 0.4 mg capsule 0.4 mg PO DAILY PRN Other 10/15/23 12/31/23 History valacyclovir 1 gram tablet 1 mg PO DIRECTED PRN Cold Sores 10/15/23 12/31/23 History L.acidop,casei,lactis,rham-B.lact,tank 2 cap PO DAILY #60 caps 10/19/23 12/31/23 Rx 625 mg (10 billion cell) capsule (Advanced Probiotic) cyanocobalamin (vitamin B-12) 500 1,000 mcg (2 x 500 mcg) PO QAM #60 10/19/23 12/31/23 Rx mcg tablet tabs Patient History Medical History 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, recent incidental finding, to follow w/ Hyun Curry Osbaldo GERD (gastroesophageal reflux disease) Hx of transesophageal echocardiography (JON) for monitoring Calculus of distal right ureter 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 Surgical History Hx of colonoscopy History of dilatation and curettage Hx of laparoscopy Hx of cystoscopy w/ stent Hx of lithotripsy Hx of tonsillectomy H/O bilateral oophorectomy History of hysterectomy Family History Mother Cervical cancer Social History Smoking Status: Never smoker Second Hand Exposure: No; Do You Dip or Chew Tobacco: No; Hx Alcohol Use: No Hx Substance Use: No Preferred Language: Sierra Leonean Communication Ability: Effective Concrete Spreader Required: No Beliefs That Will Affect Care: None Current Living Situation: Spouse Feels Safe at Home: Yes Assistive Devices: None Review of Systems Constitutional: no fever and no chills Respiratory: no cough and no dyspnea Cardiovascular: + chest pain Gastrointestinal: no heartburn, no nausea, no vomiting, no dysphagia and no melena Physical Exam Constitutional: well developed Respiratory: normal respiratory effort Cardiovascular: Rate/Rhythm: regular rate Gastrointestinal (Abdomen): Inspection/Auscultation: abdomen normal to inspection Psychiatric: Orientation: alert and oriented x 3 Results & Data Vital Signs (Past 12 Hours) Vital Signs Temp Pulse Pulse Resp BP BP Pulse Ox 12/31/23 11:43 36.3 C L 70 18 129/82 97 12/31/23 10:30 63 19 125/83 97 12/31/23 09:00 61 18 126/82 95 12/31/23 08:42 68 12/31/23 08:00 57 L 17 115/75 97 12/31/23 07:00 57 L 14 112/77 96 12/31/23 06:18 66 13 94 12/31/23 06:18 117/77 12/31/23 06:18 117/77 12/31/23 06:18 117/77 12/31/23 06:18 117/77 12/31/23 06:15 63 13 96 12/31/23 05:55 69 15 97 12/31/23 05:48 69 15 97 12/31/23 05:26 128/99 12/31/23 05:21 76 19 99 12/31/23 05:09 71 16 97 12/31/23 04:57 75 17 96 12/31/23 04:40 72 12/31/23 04:32 12/31/23 04:21 36.6 C 73 18 124/88 96 O2 Del Method 12/31/23 11:43 Room Air 12/31/23 10:30 Room Air 12/31/23 09:00 12/31/23 08:42 12/31/23 08:00 12/31/23 07:00 12/31/23 06:18 12/31/23 06:18 12/31/23 06:18 12/31/23 06:18 12/31/23 06:18 12/31/23 06:15 12/31/23 05:55 Room Air 12/31/23 05:48 12/31/23 05:26 12/31/23 05:21 12/31/23 05:09 12/31/23 04:57 12/31/23 04:40 12/31/23 04:32 Room Air 12/31/23 04:21 Room Air PG Care Time/CCT Total # of Minutes Spent Total Time Spent with Patient: Total time spent is greater than 50% in coordination of care (as documented) at patient's floor/unit and/or counseling patient: Coding Level of Care Code 67479 IN/OBS CONSULT LVL 4,60M Diagnoses Chest pain R07.9 Chest pain type: unspecified (1) Chest pain Chest pain type: unspecified Qualified Code(s): R07.9 - Chest pain, unspec ified
[2023-12-31] MEDS: LACTATED RINGER'S 1,000 ML IV SCH (14:20)
[2023-12-31] MEDS: PANTOprazole 40 MG/10 ML SYR IV ONE (14:21)
[2023-12-31] MEDS: HYDROmorphone INJ 0.5 MG/0.5 ML SYR IV PRN (15:42)
--- NOTE | 2023-12-31 16:21 | Cardiology Consultation ---
Date of Consultation December 31, 2023 Assessment & Plan (1) Chest pain: Plan Impression: 1. Noncardiac chest pain 2. Abnormal EKG 3. 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 Echocardiogram at [facility] 12/2022 demonstrating normal LVEF with EF of 65 to 70%, ASA with small PFO, mild mitral valve regurgitation, mild tricuspid valve regurgitation Ms. Bo'aly chest pain sounds esophageal/GI in nature. It does not follow a cardiac pattern. She does have T wave inversions inferiorly and anteriorly which follows a typical pattern for post pacing EKG changes which is in line with the setting adjustments she had done yesterday. It is reassuring that her troponins have been normal x 2. She does have an echo pending and if there are no wall motion abnormalities or changes in her LV function then I would attribute the EKG changes to her pacer settings and she can proceed with endoscopy if recommended by GI. There appears to be miscommunication on the timing of her Protonix. She had only been taking it once a day for a week and then had increased it to twice a day starting yesterday. Of note, she did not realize she was to sit up for half an hour after taking bisphosphonates and had been taking it first thing in the morning and then immediately lying back down to sleep for period. I discussed all of this with GI. Please let us know if there are further questions we can help answer. We will continue to follow while she is here in the hospital. History of Present Illness Attending Physician: Stu Pardo MD History of Present Illness Ms. Bo presented early this morning for complaints of chest pain. I saw her in the clinic on December 23 for similar complaints though not of this degree. She had been having some dyspnea on exertion and chest pain and tightness. Over the last week the chest discomfort has been worsening. It is triggered by swallowing food or liquids to the point where she is avoiding eating. It is relieved if she pushed in her ribs. Her shortness of breath appeared to be a separate issue as it happened with exertion where is the chest discomfort was not exacerbated by exertion and was triggered with swallowing. Her shortness of breath was attributed to extended first-degree AV block demonstrated on her EKG on December 23. Her device was adjusted yesterday to turn off both paced and sensed AV delay set 280 ms to promote ventricular pacing. She has noted less shortness of breath with this. Allergies Allergy/AdvReac Type Severity Reaction Status Date / Time azithromycin [From Zithromax] Allergy Severe Hives Verified 12/31/23 08:36 dihydroergotamine Allergy Severe "THROAT Verified 12/31/23 08:36 SHUTS DOWN" ketorolac Allergy Intermediate HIVES Verified 12/31/23 08:36 Milk Containing Products Allergy Intermediate Gastrointestinal Unverified 12/31/23 08:36 (Dairy) Upset Penicillins Allergy Intermediate Hives Verified 12/31/23 08:36 Home Medications Medication Instructions Recorded Confirmed Type ascorbic acid (vitamin C) 500 mg 500 mg PO QAM 11/11/17 12/31/23 History tablet (Vitamin C) conjugated estrogens 0.625 mg/gram 1 applic vaginal 2XWK 11/11/17 12/31/23 History vaginal cream (Premarin) fluticasone propionate 50 1 spray intranasal DAILY PRN 11/11/17 12/31/23 History mcg/actuation nasal Allergy Symptoms spray,suspension (Flonase Allergy Relief) folic acid 400 mcg tablet 400 mcg PO QAM 11/11/17 12/31/23 History lysine 500 mg tablet (L-Lysine) 500 mg PO DAILY PRN Cold Sore(s) 11/11/17 12/31/23 History selenium 200 mcg tablet (SelenoMax) 200 mcg PO QAM PRN illness 11/11/17 12/31/23 History sennosides 8.6 mg-docusate sodium 1 tab PO BID PRN Constipation 11/11/17 12/31/23 History 50 mg tablet (Senna-S) sumatriptan succinate 100 mg 100 mg PO UD PRN Migraine Headache 11/11/17 12/31/23 History tablet (Imitrex) cholecalciferol (vitamin D3) 125 5,000 units PO UD 07/03/18 12/31/23 History mcg (5,000 unit) tablet (Vitamin D3) meperidine (PF) 100 mg/mL 1 ml IM DIRECTED PRN Migraine 07/03/18 12/31/23 History injection solution Headache multivitamin (Multiple Vitamins 1 tab PO QAM 07/03/18 12/31/23 History tablet) ondansetron 4 mg disintegrating 4 mg PO Q6H PRN nausea and 09/07/20 12/31/23 Rx tablet vomiting #20 tabs ibuprofen 800 mg tablet 800 mg PO DIRECTED PRN Pain 09/26/20 12/31/23 History galcanezumab-gnlm 120 mg/mL 120 mg subcut MONTHLY 10/25/22 12/31/23 History subcutaneous syringe (Emgality) docusate sodium 100 mg capsule 100 mg PO BID #60 caps 02/01/23 12/31/23 Rx oxybutynin chloride 5 mg tablet 5 mg PO Q8H PRN bladder spasms #90 02/01/23 12/31/23 Rx tabs pantoprazole 40 mg tablet,delayed 40 mg PO DAILY #30 tabs 02/01/23 12/31/23 Rx release albuterol sulfate 90 mcg/actuation 1 puff inhalation DIRECTED PRN 10/15/23 12/31/23 History aerosol inhaler Other alendronate 70 mg tablet 70 mg PO WK 10/15/23 12/31/23 History aspirin 81 mg tablet,delayed 81 mg PO UD 10/15/23 12/31/23 History release (Adult Aspirin Regimen) levothyroxine 25 mcg tablet 25 mcg PO UD 10/15/23 12/31/23 History omega 5-nte-oow-fish oil 1,000 mg 1 cap PO DAILY ##0 10/15/23 12/31/23 History (120 mg-180 mg) capsule (Fish Oil) phenazopyridine 200 mg tablet 200 mg PO Q8H PRN Other 10/15/23 12/31/23 History (Pyridium) tamsulosin 0.4 mg capsule 0.4 mg PO DAILY PRN Other 10/15/23 12/31/23 History valacyclovir 1 gram tablet 1 mg PO DIRECTED PRN Cold Sores 10/15/23 12/31/23 History L.acidop,casei,lactis,rham-B.lact,tank 2 cap PO DAILY #60 caps 10/19/23 12/31/23 Rx 625 mg (10 billion cell) capsule (Advanced Probiotic) cyanocobalamin (vitamin B-12) 500 1,000 mcg (2 x 500 mcg) PO QAM #60 10/19/23 12/31/23 Rx mcg tablet tabs Patient History Medical History 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, recent incidental finding, to follow w/ CHANTE Diamond GERD (gastroesophageal reflux disease) Hx of transesophageal echocardiography (JON) for monitoring Calculus of distal right ureter 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 Surgical History Hx of colonoscopy History of dilatation and curettage Hx of laparoscopy Hx of cystoscopy w/ stent Hx of lithotripsy Hx of tonsillectomy H/O bilateral oophorectomy History of hysterectomy Family History Mother Cervical cancer Social History Smoking Status: Never smoker Second Hand Exposure: No; Do You Dip or Chew Tobacco: No; Hx Alcohol Use: No Hx Substance Use: No Preferred Language: Upper Sorbian Communication Ability: Effective Pediatric Dental Hygienist Required: No Beliefs That Will Affect Care: None Current Living Situation: Spouse Feels Safe at Home: Yes Assistive Devices: None Review of Systems Review of Systems: All systems reviewed & are unremarkable except as noted in HPI & below Physical Exam Constitutional: + ill appearing and + disheveled Respiratory: normal respiratory effort, lungs clear to auscultation Cardiovascular: RRR, no murmur, no edema Skin: no rashes, warm and dry Neurologic: moves all extremities and awake Psychiatric: A+Ox3, euthymic affect Results & Data Vital Signs (Past 12 Hours) Vital Signs Temp Pulse Pulse Resp BP BP Pulse Ox 12/31/23 15:29 36.7 C 70 18 130/79 95 12/31/23 11:43 36.3 C L 70 18 129/82 97 12/31/23 10:30 63 19 125/83 97 12/31/23 09:00 61 18 126/82 95 12/31/23 08:42 68 12/31/23 08:00 57 L 17 115/75 97 12/31/23 07:00 57 L 14 112/77 96 12/31/23 06:18 66 13 94 12/31/23 06:18 117/77 12/31/23 06:18 117/77 12/31/23 06:18 117/77 12/31/23 06:18 117/77 12/31/23 06:15 63 13 96 12/31/23 05:55 69 15 97 12/31/23 05:48 69 15 97 12/31/23 05:26 128/99 12/31/23 05:21 76 19 99 12/31/23 05:09 71 16 97 12/31/23 04:57 75 17 96 12/31/23 04:40 72 12/31/23 04:32 12/31/23 04:21 36.6 C 73 18 124/88 96 O2 Del Method 12/31/23 15:29 Room Air 12/31/23 11:43 Room Air 12/31/23 10:30 Room Air 12/31/23 09:00 12/31/23 08:42 12/31/23 08:00 12/31/23 07:00 12/31/23 06:18 12/31/23 06:18 12/31/23 06:18 12/31/23 06:18 12/31/23 06:18 12/31/23 06:15 12/31/23 05:55 Room Air 12/31/23 05:48 12/31/23 05:26 12/31/23 05:21 12/31/23 05:09 12/31/23 04:57 12/31/23 04:40 12/31/23 04:32 Room Air 12/31/23 04:21 Room Air (1) Chest pain Chest pain type: unspecified Qualified Code(s): R07.9 - Chest pain, unspecified
[2023-12-31] MEDS: FIRST - Mouthwash BLM 119 ML PO SCH (17:34)
--- NOTE | 2023-12-31 17:56 | Electrocardiogram Report ---
Test Reason : Blood Pressure : */* mmHG Vent. Rate : 63 BPM Atrial Rate : 63 BPM P-R Int : 178 ms QRS Dur : 128 ms QT Int : 460 ms P-R-T Axes : 6 -9 -32 degrees QTcB Int : 470 ms Normal sinus rhythm Right bundle branch block T wave abnormality, consider inferior ischemia Abnormal ECG When compared with ECG of 31-Dec-2023 04:28, No significant change was found Confirmed by Ash Steven ([id number]) on 12/31/2023 5:56:27 PM Referred By: REFERRED SELF Confirmed By: Ash Steven
[2023-12-31] MEDS: LIDOCAINE 5% 1 PATCH TD STA (18:58)
[2023-12-31] MEDS: DOCUSATE SODIUM 100 MG CAP PO SCH (20:03)
[2023-12-31] MEDS: PANTOprazole 40 MG/10 ML SYR IV SCH (20:04)
[2023-12-31] MEDS: ONDANSETRON INJ 2 MG/ML 2 ML VIAL IV PRN (21:09)
[2024-01-01 06:07] LABS: Hematocrit (blood only) 34.8 % (37.0-47.0); Hemoglobin 11.7 g/dl (12.0-16.0); Mean Corpuscular Hemoglobin 28.9 pg (25.0-34.0); Mean Corpuscular Hgb Conc 33.6 g/dL (32.0-36.0); Mean Corpuscular Volume 85.9 fL (80.0-100.0); Mean Platelet Volume 10.3 fL (9.4-12.4); Platelet Count 138 K/uL (130-400); RDW Standard Deviation 40.7 fL (36.4-46.3); Red Blood Count 4.05 M/uL (4.20-5.40); White Blood Count 2.36 K/ul (4.8-10.8)
[2024-01-01 06:27] LABS: BUN Creatinine Ratio 21.9 (10-20); Calcium 8.6 mg/dl (8.6-10.3); Creatinine Clr Calc Pharmacy 81.7 ml/min; Magnesium 1.9 mg/dl (1.7-2.4); Phosphorus 2.8 mg/dl (2.5-4.9); Potassium 3.8 mmol/L (3.5-5.1)
--- NOTE | 2024-01-01 07:39 | Cardiology Progress Note ---
Date of Service January 01, 2024 Assessment & Plan (1) Chest pain: Plan Impression: 1. Noncardiac chest pain-suspect GI possible esophageal spasm 2. Abnormal EKG 3. 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 Echocardiogram at [facility] 12/2022 demonstrating normal LVEF with EF of 65 to 70%, ASA with small PFO, mild mitral valve regurgitation, mild tricuspid valve regurgitation Ms. Bo's chest pain sounds esophageal/GI in nature. She does have T wave inversions inferiorly and anteriorly which follows a typical pattern for post pacing EKG changes which is in line with the setting adjustments she had done yesterday. It is reassuring that her troponins have been normal x 2. She does have an echo pending and if there are no wall motion abnormalities or changes in her LV function then I would attribute the EKG changes to her pacer settings and she can proceed with endoscopy if recommended by GI. Trial on Nitropaste; consider viscous lidocaine donnatol (if available) Admission and Anticipated Discharge Date Admission Date: December 31, 2023 Subjective Patient states her "upper" chest discomfort is improved but still has lower pain and "spasms" that can double her over. She states that over the last five months she has been taking her Fosamax at 4 am and then going back to bed. She states the lidocaine patch also helps her pain. Had CP while in room-comes over her like a wave and last for a few minutes Review of Systems Review of Systems: All systems reviewed & are unremarkable except as noted in HPI & below Physical Exam Physical Exam: no change Respiratory: heart regular no new murmurs lungs CTA b/l Results & Data Vital Signs (Past 12 Hours) Vital Signs Temp Pulse Pulse Resp BP Pulse Ox O2 Del Method 01/01/24 06:50 67 01/01/24 03:59 36.9 C 67 18 114/71 93 Room Air 01/01/24 01:03 73 12/31/23 23:00 36.7 C 90 18 111/68 91 Room Air 12/31/23 20:36 36.9 C 74 18 146/79 H 95 Room Air Laboratory Results Abnormal lab results 01/01/24 Range/Units 05:22 WBC 2.36 L (4.8-10.8) K/ul RBC 4.05 L (4.20-5.40) M/uL Hgb 11.7 L (12.0-16.0) g/dl Hct 34.8 L (37.0-47.0) % BUN/Creatinine Ratio 21.9 H (10-20) (1) Chest pain Chest pain type: unspecified Qualified Code(s): R07.9 - Chest pain, unspecified
[2024-01-01] MEDS: MULTIVITAMIN TAB PO SCH (07:54)
[2024-01-01] MEDS: CYANOCOBALAMIN (B-12) 500 MCG TABLET PO SCH (07:54)
[2024-01-01] MEDS: FOLIC ACID 400 MCG TAB PO SCH (07:54)
[2024-01-01] MEDS: ADVANCED PROBIOTIC 625 MG CAPSULE PO SCH (07:54)
[2024-01-01] MEDS: ASCORBIC ACID 500 MG TAB PO SCH (07:55)
--- NOTE | 2024-01-01 08:49 | Gastroenterology Progress Note ---
Date of Service January 01, 2024 Assessment & Plan (1) Atypical chest pain: Plan: Await results of ECHO but if no wall abnormalities OK for EGD per cardiology. Would continue care and consider SL NTG as this can be helpful for esophageal spasm as well. If EGD is unremarkable likely will require esophageal motility and possibly even prolonged ph testing. The EGD procedure, alternatives including no work up or treatment, risks and benefits were discussed. Among the risks discussed included cardiorespiratory suppression, aspiration, bleeding, failure to diagnose cancer or other pathology and perforation requiring surgery. In addition we discussed that if specimens are obtained it may be deemed beneficial to send these for genetic/DNA testing. The patient claimed to understand all that was discussed, consented to all and all of her questions were answered. Tentatively plan EGD for Wednesday pending final reading of ECHO. Discussed all above with patient. Admission and Anticipated Discharge Date Admission Date: December 31, 2023 Subjective Patient states her "upper" chest discomfort is improved but still has lower pain and "spasms" that can double her over. She states that over the last five months she has been taking her Fosamax at 4 am and then going back to bed. She states the lidocaine patch also helps her pain. Review of Systems Review of Systems: Negative except for HPI and below. Gastrointestinal: Denies vomiting but odynophagia Physical Exam Physical Exam: WD WN WF NAD Respiratory: Clear Cardiovascular: Reg Gastrointestinal (Abdomen): NL BS, soft, nontender Musculoskeletal: Neg CCE Results & Data Results & Data Vital Signs (Past 12 Hours) Vital Signs Temp Pulse Pulse Resp BP BP Pulse Ox 01/01/24 08:17 36.7 C 74 16 119/75 95 01/01/24 06:50 67 01/01/24 03:59 36.9 C 67 18 114/71 93 01/01/24 01:03 73 12/31/23 23:00 36.7 C 90 18 111/68 91 O2 Del Method 01/01/24 08:17 Room Air 01/01/24 06:50 01/01/24 03:59 Room Air 01/01/24 01:03 12/31/23 23:00 Room Air PG Care Time/CCT Total # of Minutes Spent Total Time Spent with Patient: Total time spent is greater than 50% in coordination of care (as documented) at patient's floor/unit and/or counseling patient: Coding Level of Care Code 41020 SUB INP/OBS CARE 03/25MIN Diagnoses Atypical chest pain R07.89
[2024-01-01] MEDS ORDERED: NITROGLYCERIN 2% OINTMENT 30GM TUBE EXT SCH (09:15)
[2024-01-01] MEDS: NITROGLYCERIN SL 0.4 MG/TAB TAB SL STA (09:39)
--- NOTE | 2024-01-01 09:56 | Hospitalist Progress Note ---
Date of Service January 01, 2024 Assessment & Plan (1) Chest pain: (2) Epigastric pain: Plan Ms. 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 Patient reports that she has been dealing with chest discomfort and intermittent bouts of sharp/stabbing chest pain for about a week now. She was recently seen by LING Diamond [[facility]] on 12/24/2023 for these same symptoms and was diagnosed with probable GERD. However her omeprazole dosage was increased without any relief. Her chest discomfort is constant and radiates across her entire chest wall into her bilateral rib regions. She also gets these bouts of sharp/stabbing pain in her substernal chest region that radiate up from her epigastric region multiple times per day. These episodes of sharp/stabbing pain can come on at any time however they always occur when she drinks or eats. Patient denies the sensation of food getting stuck in her throat. Patient evaluated by GI with plans for EGD on Wednesday Cardiology evaluated as well, low suspicion of cardiac etiology #Acute noncardiac chest pain, c/f ?esophageal spasm v esophagitis EKG reveals some ST and T wave changes in the inferior/anterior leads although her initial troponin was negative. CXR negative. Chest CTA without evidence of PE however does note findings in the [facility]UG[facility] concerning for possible chronic infection/aspiration. No infectious symptoms reported, vitals stable. Less likely an infectious etiology as this point. Suspicion for esophagitis vs esophageal spasms. -Hold home alendronate and ASA Biofire negative, troponin negative H pylori stool antigen pending. ECHO with PFO, normal EF 55-60%, -Trial of sublingual nitro started -trial of antispasmodic -Plan for NPO tomorrow at midnight for EGD Wednesday Continue IVF given inability for CLD Continue ppi BID Continue magic mouth wash achs #Recent Lyme Carditis c/b 2nd Degree Av Block S/P Pacemaker Placement: Patient was recently admitted under our service back in September of this year (10/15/2023 - 10/19/2023) due to Lyme carditis and second-degree AV block. She completed a 3-week course of IV ceftriaxone however her second-degree AV block did not resolve therefore she required pacemaker placement on 11/16/2023 at [facility] performed by Dr. Jaimie Gilman. Patient follows closely with Dr. 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 She had her pacemaker adjust ed yesterday - reports her settings had to be "doubled" as the device was not pacing correctly. Cardiology following, low suspicion current symptoms related to cardiac eitology #Chronic Leukopenia: WBC count typically ranges ~2k per chart review. She was found to have chronic leukopenia during her previous admission. She was evaluated by hematology/oncology and underwent bone marrow biopsy on 10/19/2023 that revealed normocellular marrow (no evidence of myelodysplasia). Other Chronic Medical Conditions: HLD, hypothyroidism --> Can continue home medications for these specific conditions. DVT Prophylaxis: SCDs/TEDs for now. Code Status: FULL CODE PCP: Salvador Pike MD Disposition: Observation in Med/Surg + Telemetry Admission and Anticipated Discharge Date Admission Date: December 31, 2023 Subjective Patient with active spasm. Reports concern over topical nitro--agreeable to SL NG to assess if it will aid in symptom control prior to topical paste Patient states her symptoms are more mild when not eating, but at this time any thing orally seems to exacerbate the tightening she feels in her chest She notes some relief with the lidocaine solution, but only to about mid chest Patient reports that back pain feels more related to muscle soreness from bracing and trying to hunch over for comfort Physical Exam Constitutional: WD/WN, vitals as above Cardiovascular: RRR, no murmur, no edema Gastrointestinal (Abdomen): normal bowel sounds, soft, nontender, no hepatosplenomegaly Results & Data Results & Data Vital Signs (Past 12 Hours) Vital Signs Temp Pulse Pulse Resp BP BP Pulse Ox 01/01/24 08:17 36.7 C 74 16 119/75 95 01/01/24 06:50 67 11/02/24 03:59 36.9 C 67 18 114/71 93 01/01/24 01:03 73 12/31/23 23:00 36.7 C 90 18 111/68 91 O2 Del Method 01/01/24 08:17 Room Air 01/01/24 06:50 01/01/24 03:59 Room Air 01/01/24 01:03 12/31/23 23:00 Room Air Laboratory Results Short CBC 01/01/24 Range/Units 05:22 WBC 2.36 L (4.8-10.8) K/ul Hgb 11.7 L (12.0-16.0) g/dl Hct 34.8 L (37.0-47.0) % Plt Count 138 (130-400) K/uL BMP 01/01/24 05:22 Sodium 138 Potassium 3.8 Chloride 106 Carbon Dioxide 25 BUN 14 Creatinine 0.64 Glucose 87 Calcium 8.6 Medications Administered Home Medications Medication Instructions Recorded Confirmed Last Taken ascorbic acid (vitamin C) 500 mg 500 mg PO QAM 11/11/17 12/31/23 1 Week Ago tablet (Vitamin C) ~12/24/23 conjugated estrogens 0.625 mg/gram 1 applic vaginal 2XWK 11/11/17 12/31/23 1 Week Ago vaginal cream (Premarin) ~12/24/23 fluticasone propionate 50 1 spray intranasal DAILY PRN 11/11/17 12/31/23 09/02/20 mcg/actuation nasal Allergy Symptoms spray,suspension (Flonase Allergy Relief) folic acid 400 mcg tablet 400 mcg PO QAM 11/11/17 12/31/23 1 Week Ago ~12/24/23 lysine 500 mg tablet (L-Lysine) 500 mg PO DAILY PRN Cold Sore(s) 11/11/17 12/31/23 02/01/23 08:00 selenium 200 mcg tablet (SelenoMax) 200 mcg PO QAM PRN illness 11/11/17 12/31/23 10/25/22 sennosides 8.6 mg-docusate sodium 1 tab PO BID PRN Constipation 11/11/17 12/31/23 10/25/22 50 mg tablet (Senna-S) sumatriptan succinate 100 mg 100 mg PO UD PRN Migraine Headache 11/11/17 12/31/23 10/25/22 tablet (Imitrex) cholecalciferol (vitamin D3) 125 5,000 units PO UD 07/03/18 12/31/23 1 Week Ago mcg (5,000 unit) tablet (Vitamin ~12/24/23 D3) meperidine (PF) 100 mg/mL 1 ml IM DIRECTED PRN Migraine 07/03/18 12/31/23 U nknown injection solution Headache multivitamin (Multiple Vitamins 1 tab PO QAM 07/03/18 12/31/23 1 Week Ago tablet) ~12/24/23 ondansetron 4 mg disintegrating 4 mg PO Q6H PRN nausea and 09/07/20 12/31/23 Unknown tablet vomiting #20 tabs ibuprofen 800 mg tablet 800 mg PO DIRECTED PRN Pain 09/26/20 12/31/23 09/26/20 galcanezumab-gnlm 120 mg/mL 120 mg subcut MONTHLY 10/25/22 12/31/23 12/19/23 subcutaneous syringe (Emgality) docusate sodium 100 mg capsule 100 mg PO BID #60 caps 02/01/23 12/31/23 1 Week Ago ~12/24/23 oxybutynin chloride 5 mg tablet 5 mg PO Q8H PRN bladder spasms #90 02/01/23 12/31/23 02/07/23 tabs pantoprazole 40 mg tablet,delayed 40 mg PO DAILY #30 tabs 02/01/23 12/31/23 1 Week Ago release ~12/24/23 albuterol sulfate 90 mcg/actuation 1 puff inhalation DIRECTED PRN 10/15/23 12/31/23 Unknown aerosol inhaler Other alendronate 70 mg tablet 70 mg PO WK 10/15/23 12/31/23 12/25/23 aspirin 81 mg tablet,delayed 81 mg PO UD 10/15/23 12/31/23 1 Week Ago release (Adult Aspirin Regimen) ~12/24/23 levothyroxine 25 mcg tablet 25 mcg PO UD 10/15/23 12/31/23 Unknown omega 6-mgm-qxu-fish oil 1,000 mg 1 cap PO DAILY ##0 10/15/23 12/31/23 1 Week Ago (120 mg-180 mg) capsule (Fish Oil) ~12/24/23 phenazopyridine 200 mg tablet 200 mg PO Q8H PRN Other 10/15/23 12/31/23 Unknown (Pyridium) tamsulosin 0.4 mg capsule 0.4 mg PO DAILY PRN Other 10/15/23 12/31/23 Unknown valacyclovir 1 gram tablet 1 mg PO DIRECTED PRN Cold Sores 10/15/23 12/31/23 Unknown L.acidop,casei,lactis,rham-B.lact,tank 2 cap PO DAILY #60 caps 10/19/23 12/31/23 1 Week Ago 625 mg (10 billion cell) capsule ~12/24/23 (Advanced Probiotic) cyanocobalamin (vitamin B-12) 500 1,000 mcg (2 x 500 mcg) PO QAM #60 10/19/23 12/31/23 1 Week Ago mcg tablet tabs ~12/24/23 Active Medications Generic Name Dose Route Start Last Admin Trade Name Freq PRN Reason Stop Dose Admin Ascorbic Acid 500 mg 01/01/24 09:00 01/01/24 07:55 Ascorbic Acid 500 Mg Tab PO 01/31/24 08:59 Not Given QAM [facility] Cyanocobalamin 1,000 mcg 01/01/24 09:00 01/01/24 07:54 Cyanocobalamin (B-12) 500 Mcg Tablet PO 01/31/24 08:59 Not Given QAM [facility] Docusate Sodium 100 mg 12/31/23 21:00 01/01/24 07:57 Docusate Sodium 100 Mg Cap PO 01/30/24 20:59 100 mg BID PETRA Administration Folic Acid 400 mcg 01/01/24 09:00 01/01/24 07:54 Folic Acid 400 Mcg Tab PO 01/31/24 08:59 Not Given QAM PETRA Hydromorphone HCl 0.5 mg 12/31/23 12:55 01/01/24 06:45 Hydromorphone Inj 0.5 Mg/0.5 Ml Syr IV 01/14/24 12:54 0.5 mg Q4H PRN Administration moderate to severe pain Pantoprazole Sodium 40 mg in 10 mls @ 5 mls/min 12/31/23 21:00 01/01/24 07:52 Protonix IV 01/30/24 20:59 5 mls/min BID PETRA Administration Lactated Ringer's 1,000 mls @ 80 mls/hr 12/31/23 13:15 01/01/24 02:23 Lr IV 01/01/24 14:14 80 mls/hr .[id number] PETRA Administration Lactobacillus Acidophilus 625 mg 01/01/24 09:00 01/01/24 07:54 Advanced Probiotic 625 Mg Capsule PO 01/31/24 08:59 Not Given DAILY PETRA Levothyroxine Sodium 25 mcg 12/31/23 12:30 01/01/24 06:12 Levothyroxine Sodium 25 Mcg Tablet PO 01/30/24 12:29 25 mcg MoTuWeThFrSa@0630 PETRA Administration Miscellaneous 1 each 01/01/24 07:00 01/01/24 06:12 Remove Lidoderm Patch N/A 01/31/24 06:59 1 each DAILY@0700 PETRA Administration Morphine Sulfate 2 mg 12/31/23 17:43 12/31/23 18:14 Morphine Sulfate 2 Mg/Ml Carp IV 01/14/24 17:42 2 mg Q4H PRN Administration moderate pain Multi-Ingredient Mouthwash/Gargle 5 ml 12/31/23 16:30 01/01/24 06:45 First - Mouthwash Blm 119 Ml PO 01/30/24 16:29 5 ml ACHS PETRA Administration Multivitamins 1 tab 01/01/24 09:00 01/01/24 07:54 Multivitamin Tab PO 01/31/24 08:59 Not Given QAM [facility] Ondansetron HCl 4 mg 12/31/23 11:18 12/31/23 21:09 Ondansetron Inj 2 Mg/Ml 2 Ml Vial IV 01/30/24 11:17 4 mg Q6H PRN Administration Nausea Vitamin D 125 mcg 12/31/23 12:00 01/01/24 07:54 Cholecalciferol 125 Mcg (5,000 Units) Tab PO 01/30/24 11:59 Not Given DAILY PETRA (1) Chest pain Chest pain type: unspecified Qualified Code(s): R07.9 - Chest pain, unspecified
[2024-01-01] MEDS: NITROGLYCERIN SL 0.4 MG/TAB TAB SL PRN (09:57)
[2024-01-01] MEDS: HYOSCYAMINE SULFATE 0.125 MG TAB SL STA (11:07)
[2024-01-01] MEDS: ALUMINUM/MAGNESIUM/SIMETH (MAALOX MAX) 30 ML UDC PO STA (13:52)
--- NOTE | 2024-01-01 14:01 | Communication Note ---
Date of Service: January 01, 2024 No success with multiple doses of SL NG Food is main trigger, will make NPO with sips for rest continue ppi, agreed to trial mylanta states anxiety seems to make it worse, trial of ativan
[2024-01-01] MEDS: HYDROmorphone INJ 0.5 MG/0.5 ML SYR IV SCH (14:13)
[2024-01-01] MEDS: LIDOCAINE 5% 1 PATCH TD SCH (18:28)
[2024-01-01] MEDS: HYDROmorphone INJ 0.5 MG/0.5 ML SYR IV PRN (18:33)
--- NOTE | 2024-01-01 19:39 | Electrocardiogram Report ---
Test Reason : Blood Pressure : */* mmHG Vent. Rate : 76 BPM Atrial Rate : 76 BPM P-R Int : 212 ms QRS Dur : 148 ms QT Int : 462 ms P-R-T Axes : 49 -51 81 degrees QTcB Int : 519 ms Atrial-sensed ventricular-paced rhythm with prolonged AV conduction Abnormal ECG When compared with ECG of 31-Dec-2023 12:34, Electronic ventricular pacemaker has replaced Sinus rhythm Confirmed by Isidra Friend (Veto) on 01/01/2024 7:39:21 PM Referred By: REFERRED SELF Confirmed By: Isidra Friend
[2024-01-01] MEDS ORDERED: oxyCODONE HCL IR 5 MG TAB (IMMEDIATE RELEASE) PO PRN (21:13)
[2024-01-01] MEDS: LORazepam 2 MG/1 ML VIAL IV PRN (21:22)
[2024-01-01] MEDS: ACETAMINOPHEN 1,000 MG/100 ML VIAL IV STA (23:45)
--- NOTE | 2024-01-02 01:07 | Gastroenterology Progress Note ---
Date of Service January 02, 2024 Assessment & Plan (1) Atypical chest pain: Plan: ECHO showed no apparent wall motion abnormalities. Will proceed with EGD on Wednesday. Admission and Anticipated Discharge Date Admission Date: January 01, 2024 Subjective Patient essentially unchanged. Was given NTG but states this did not help her pain. Review of Systems Review of Systems: Negative except for HPI and below. No changes from yesterday. Gastrointestinal: Dysphagia and pain. Results & Data Results & Data Vital Signs (Past 12 Hours) Vital Signs Temp Pulse Resp BP BP Pulse Ox O2 Del Method 01/02/24 00:23 36.8 C 72 20 143/88 H 98 Room Air 01/01/24 20:11 37.0 C 78 20 128/82 94 Room Air 01/01/24 15:05 36.9 C 71 16 124/76 94 Room Air PG Care Time/CCT Total # of Minutes Spent Total Time Spent with Patient: Total time spent is greater than 50% in coordination of care (as documented) at patient's floor/unit and/or counseling patient: Coding Level of Care Code 71677 SUB INP/OBS CARE 1/25MIN Diagnoses Atypical chest pain R07.89
[2024-01-02] MEDS: LEVOTHYROXINE SODIUM 25 MCG TABLET PO SCH (06:09)
[2024-01-02 06:51] LABS: Hematocrit (blood only) 36.6 % (37.0-47.0); Hemoglobin 12.7 g/dl (12.0-16.0); Mean Corpuscular Hemoglobin 29.7 pg (25.0-34.0); Mean Corpuscular Hgb Conc 34.7 g/dL (32.0-36.0); Mean Corpuscular Volume 85.5 fL (80.0-100.0); Platelet Count 157 K/uL (130-400); RDW Standard Deviation 40.5 fL (36.4-46.3); Red Blood Count 4.28 M/uL (4.20-5.40); White Blood Count 2.62 K/ul (4.8-10.8)
[2024-01-02 07:15] LABS: BUN Creatinine Ratio 15.5 (10-20); Calcium 8.9 mg/dl (8.6-10.3); Creatinine Clr Calc Pharmacy 73.7 ml/min; Phosphorus 2.6 mg/dl (2.5-4.9); Potassium 4.3 mmol/L (3.5-5.1)
[2024-01-02 07:32] LABS: Folate (Folic Acid),Ser orPlas 16.5 ng/ml (>5.38)
[2024-01-02 07:35] LABS: Ferritin 53.4 ng/ml (8-388)
--- NOTE | 2024-01-02 09:33 | Hospitalist Progress Note ---
Date of Service January 02, 2024 Assessment & Plan (1) Chest pain: (2) Epigastric pain: Plan Ms. 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 Patient reports that she has been dealing with chest discomfort and intermittent bouts of sharp/stabbing chest pain for about a week now. She was recently seen by LING Diamond [[facility]] on 12/24/2023 for these same symptoms and was diagnosed with probable GERD. However her omeprazole dosage was increased without any relief. Her chest discomfort is constant and radiates across her entire chest wall into her bilateral rib regions. She also gets these bouts of sharp/stabbing pain in her substernal chest region that radiate up from her epigastric region multiple times per day. These episodes of sharp/stabbing pain can come on at any time however they always occur when she drinks or eats. Patient evaluated by GI with plans for EGD on Wednesday Cardiology evaluated as well, low suspicion of cardiac etiology #Acute noncardiac chest pain, c/f ?esophageal spasm v esophagitis EKG reveals some ST and T wave changes in the inferior/anterior leads although her initial troponin was negative. CXR negative. Chest CTA without evidence of PE however does note findings in the [facility] concerning for possible chronic infect ion/aspiration. No infectious symptoms reported, vitals stable. Less likely an infectious etiology as this point. Suspicion for esophagitis vs esophageal spasms. -Hold home alendronate and ASA Biofire negative, troponin negative H pylori stool antigen ordered ECHO with PFO, normal EF 55-60%, -Trial of sublingual nitro started--no improvement -trial of antispasmodic--no improvement -Plan for NPO midnight for EGD Wednesday Continue IVF given inability for CLD Continue ppi BID Continue magic mouth wash achs Moderate improvement with ativan Diet trial once more as patient states symptoms are same regardless #Recent Lyme Carditis c/b 2nd Degree Av Block S/P Pacemaker Placement: Patient was recently admitted under our service back in September of this year (10/15/2023 - 10/19/2023) due to Lyme carditis and second-degree AV block. She completed a 3-week course of IV ceftriaxone however her second-degree AV block did not resolve therefore she required pacemaker placement on 11/16/2023 at [facility] performed by Dr. Jaimie Gilman. Patient follows closely with Dr. 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 She had her pacemaker adjusted yesterday - reports her settings had to be "doubled" as the device was not pacing correctly. Cardiology following, low suspicion current symptoms related to cardiac eitology #Chronic Leukopenia: WBC count typically ranges ~2k per chart review. She was found to have chronic leukopenia during her previous admission. She was evaluated by hematology/oncology and underwent bone marrow biopsy on 10/19/2023 that revealed normocellular marrow (no evidence of myelodysplasia). Other Chronic Medical Conditions: HLD, hypothyroidism --> Can continue home medications for these specific conditions. DVT Prophylaxis: SCDs/TEDs for now. Code Status: FULL CODE PCP: Salvador Pike MD Disposition: Observation in Med/Surg + Telemetry Admission and Anticipated Discharge Date Admission Date: January 01, 2024 Subjective Reports some relief with ativan Still with cramps ongoing/sharp stabbing pain Reports notable hunger pangs and wishing to trial some diet again with pain regimen Counseled on avoiding extremes of temperature at this time and patient very upset with being promised an EGD on Wednesday now waiting through the weekend.--attempted to reassure patient Physical Exam Constitutional: uncomfortable, intermittent abdominal pains in room Respiratory: normal respiratory effort, lungs clear to auscultation Cardiovascular: RRR, no murmur, no edema Gastrointestinal (Abdomen): NTND, pain not reproducible on exam Results & Data Results & Data Vital Signs (Past 12 Hours) Vital Signs Temp Pulse Pulse Resp BP BP Pulse Ox 01/02/24 08:11 36.8 C 76 16 124/73 96 01/02/24 07:14 67 01/02/24 04:02 36.9 C 78 20 120/76 94 01/02/24 01:57 EST 67 01/02/24 00:23 36.8 C 72 20 143/88 H 98 O2 Del Method 01/02/24 08:11 Room Air 01/02/24 07:14 01/02/24 04:02 Room Air 01/02/24 01:57 EST 01/02/24 00:23 Room Air Laboratory Results Short CBC 01/02/24 Range/Units 06:04 WBC 2.62 L (4.8-10.8) K/ul Hgb 12.7 (12.0-16.0) g/dl Hct 36.6 L (37.0-47.0) % Plt Count 157 (130-400) K/uL BMP 01/02/24 06:04 Sodium 139 Potassium 4.3 Chloride 105 Carbon Dioxide 27 BUN 11 Creatinine 0.71 Glucose 77 Calcium 8.9 Medications Administered Home Medications Medication Instructions Recorded Confirmed Last Taken ascorbic acid (vitamin C) 500 mg 500 mg PO QAM 11/11/17 12/31/23 1 Week Ago tablet (Vitamin C) ~12/24/23 conjugated estrogens 0.625 mg/gram 1 applic vaginal 2XWK 11/11/17 12/31/23 1 Week Ago vaginal cream (Premarin) ~12/24/23 fluticasone propionate 50 1 spray intranasal DAILY PRN 11/11/17 12/31/23 09/02/20 mcg/actuation nasal Allergy Symptoms spray,suspension (Flonase Allergy Relief) folic acid 400 mcg tablet 400 mcg PO QAM 11/11/17 12/31/23 1 Week Ago ~12/24/23 lysine 500 mg tablet (L-Lysine) 500 mg PO DAILY PRN Cold Sore(s) 11/11/17 12/31/23 02/01/23 08:00 selenium 200 mcg tablet (SelenoMax) 200 mcg PO QAM PRN illness 11/11/17 12/31/23 10/25/22 sennosides 8.6 mg-docusate sodium 1 tab PO BID PRN Constipation 11/11/17 12/31/23 10/25/22 50 mg tablet (Senna-S) sumatriptan succinate 100 mg 100 mg PO UD PRN Migraine Headache 11/11/17 12/31/23 10/25/22 tablet (Imitrex) cholecalciferol (vitamin D3) 125 5,000 units PO UD 07/03/18 12/31/23 1 Week Ago mcg (5,000 unit) tablet (Vitamin ~12/24/23 D3) meperidine (PF) 100 mg/mL 1 ml IM DIRECTED PRN Migraine 07/03/18 12/31/23 Unknown injection solution Headache multivitamin (Multiple Vitamins 1 tab PO QAM 07/03/18 12/31/23 1 Week Ago tablet) ~12/24/23 ondansetron 4 mg disintegrating 4 mg PO Q6H PRN nausea and 09/07/20 12/31/23 Unknown tablet vomiting #20 tabs ibuprofen 800 mg tablet 800 mg PO DIRECTED PRN Pain 09/26/20 12/31/23 09/26/20 galcanezumab-gnlm 120 mg/mL 120 mg subcut MONTHLY 10/25/22 12/31/23 12/19/23 subcutaneous syringe (Emgality) docusate sodium 100 mg capsule 100 mg PO BID #60 caps 02/01/23 12/31/23 1 Week Ago ~12/24/23 oxybutynin chloride 5 mg tablet 5 mg PO Q8H PRN bladder spasms #90 02/01/23 12/31/23 02/07/23 tabs pantoprazole 40 mg tablet,delayed 40 mg PO DAILY #30 tabs 02/01/23 12/31/23 1 Week Ago release ~12/24/23 albuterol sulfate 90 mcg/actuation 1 puff inhalation DIRECTED PRN 10/15/23 12/31/23 Unknown aerosol inhaler Other alendronate 70 mg tablet 70 mg PO WK 10/15/23 12/31/23 12/25/23 aspirin 81 mg tablet,delayed 81 mg PO UD 10/15/23 12/31/23 1 Week Ago release (Adult Aspirin Regimen) ~12/24/23 levothyroxine 25 mcg tablet 25 mcg PO UD 10/15/23 12/31/23 Unknown omega 5-drn-ojh-fish oil 1,000 mg 1 cap PO DAILY ##0 10/15/23 12/31/23 1 Week Ago (120 mg-180 mg) capsule (Fish Oil) ~12/24/23 phenazopyridine 200 mg tablet 200 mg PO Q8H PRN Other 10/15/23 12/31/23 Unknown (Pyridium) tamsulosin 0.4 mg capsule 0.4 mg PO DAILY PRN Other 10/15/23 12/31/23 Unknown valacyclovir 1 gram tablet 1 mg PO DIRECTED PRN Cold Sores 10/15/23 12/31/23 Unknown L.acidop,casei,lactis,rham-B.lact,tank 2 cap PO DAILY #60 caps 10/19/23 12/31/23 1 Week Ago 625 mg (10 billion cell) capsule ~12/24/23 (Advanced Probiotic) cyanocobalamin (vitamin B-12) 500 1,000 mcg (2 x 500 mcg) PO QAM #60 10/19/23 12/31/23 1 Week Ago mcg tablet tabs ~12/24/23 Active Medications Generic Name Dose Route Start Last Admin Trade Name Freq PRN Reason Stop Dose Admin Ascorbic Acid 500 mg 01/01/24 09:00 01/02/24 08:10 Ascorbic Acid 500 Mg Tab PO 01/31/24 08:59 500 mg QAM PETRA Administration Cyanocobalamin 1,000 mcg 01/01/24 09:00 01/02/24 08:09 Cyanocobalamin (B-12) 500 Mcg Tablet PO 01/31/24 08:59 1,000 mcg QAM PETRA Administration Docusate Sodium 100 mg 12/31/23 21:00 01/02/24 08:14 Docusate Sodium 100 Mg Cap PO 01/30/24 20:59 100 mg BID PETRA Administration Folic Acid 400 mcg 01/01/24 09:00 01/02/24 08:11 Folic Acid 400 Mcg Tab PO 01/31/24 08:59 400 mcg QAM PETRA Administration Hydromorphone HCl 0.5 mg 01/01/24 13:47 01/02/24 03:46 Hydromorphone Inj 0.5 Mg/0.5 Ml Syr IV 01/15/24 13:29 0.5 mg Q3H PRN Administration severe pain Pantoprazole Sodium 40 mg in 10 mls @ 5 mls/min 12/31/23 21:00 01/02/24 08:14 Protonix IV 01/30/24 20:59 5 mls/min BID PETRA Administration Lactated Ringer's 1,000 mls @ 100 mls/hr 12/31/23 13:15 01/02/24 08:29 Lr IV 01/03/24 13:14 100 mls/hr .Q10H PETRA Administration Lactobacillus Acidophilus 625 mg 01/01/24 09:00 01/02/24 08:14 Advanced Probiotic 625 Mg Capsule PO 01/31/24 08:59 625 mg DAILY PETRA Administration Levothyroxine Sodium 25 mcg 12/31/23 12:30 01/01/24 06:12 Levothyroxine Sodium 25 Mcg Tablet PO 01/30/24 12:29 25 mcg [id number]@0630 PETRA Administration Levothyroxine Sodium 50 mcg 01/02/24 06:30 01/02/24 06:09 Levothyroxine Sodium 25 Mcg Tablet PO 02/01/24 06:29 50 mcg Vera@0630 PETRA Administration Lidocaine 1 patch 01/01/24 19:00 01/01/24 18:28 Lidocaine 5% 1 Patch TD 01/31/24 18:59 1 patch 1900 PETRA Administration Miscellaneous 1 each 01/01/24 07:00 01/02/24 06:09 Remove Lidoderm Patch N/A 01/31/24 06:59 1 each DAILY@0700 PETRA Administration Multi-Ingredient Mouthwash/Gargle 5 ml 12/31/23 16:30 01/02/24 08:09 First - Mouthwash Blm 119 Ml PO 01/30/24 16:29 5 ml ACHS PETRA Administration Multivitamins 1 tab 01/01/24 09:00 01/02/24 08:10 Multivitamin Tab PO 01/31/24 08:59 1 tab QAM PETRA Administration Nitroglycerin 0.4 mg 01/01/24 09:15 01/01/24 09:57 Nitroglycerin Sl 0.4 Mg/Tab Tab SL 01/31/24 09:14 0.4 mg Q5M PRN Administration Chest Pain Ondansetron HCl 4 mg 12/31/23 11:18 12/31/23 21:09 Ondansetron Inj 2 Mg/Ml 2 Ml Vial IV 01/30/24 11:17 4 mg Q6H PRN Administration Nausea Vitamin D 125 mcg 12/31/23 12:00 01/02/24 08:10 Cholecalciferol 125 Mcg (5,000 Units) Tab PO 01/30/24 11:59 125 mcg DAILY PETRA Administration (1) Chest pain Chest pain type: unspecified Qualified Code(s): R07.9 - Chest pain, unspecified
[2024-01-02] MEDS: LORazepam 2 MG/1 ML VIAL IV PRN (10:19)
[2024-01-02] MEDS: POLYETHYLENE (MIRALAX) 17 GM PACK PO PRN (12:51)
--- NOTE | 2024-01-02 12:53 | Cardiology Progress Note ---
Date of Service January 02, 2024 Assessment & Plan (1) Chest pain: Plan: Suspected noncardiac Plan Impression: 1. Noncardiac chest pain-suspect GI possible esophageal spasm 2. Abnormal EKG 3. 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 Echocardiogram at [facility] 12/2022 demonstrating normal LVEF with EF of 65 to 70%, ASA with small PFO, mild mitral valve regurgitation, mild tricuspid valve regurgitation Ms. Bo's chest pain sounds esophageal/GI in nature. She does have T wave inversions inferiorly and anteriorly which follows a typical pattern for post pacing EKG changes which is in line with the setting adjustments she had done yesterday. It is reassuring that her troponins have been normal x 2. She does have an echo pending and if there are no wall motion abnormalities or changes in her LV function then I would attribute the EKG changes to her pacer settings and she can proceed with endoscopy if recommended by GI. Admission and Anticipated Discharge Date Admission Date: January 01, 2024 Subjective Reports some relief with ativan Still with cramps ongoing/sharp stabbing pain Reports notable hunger pangs and wishing to trial some diet again with pain regimen Counseled on avoiding extremes of temperature at this time and patient very upset with being promised an EGD on Wednesday now waiting through the weekend.--attempted to reassure patient The sublingual nitroglycerin that we gave her yesterday did not relieve her chest discomfort. Review of Systems Review of Systems: All systems reviewed & are unremarkable except as noted in HPI & below Physical Exam Physical Exam: no change Results & Data Vital Signs (Past 12 Hours) Vital Signs Temp Pulse Pulse Resp BP BP Pulse Ox 01/02/24 11:57 36.8 C 87 16 129/84 94 01/02/24 08:11 36.8 C 76 16 124/73 96 01/02/24 07:14 67 01/02/24 04:02 36.9 C 78 20 120/76 94 01/02/24 01:57 EST 67 O2 Del Method 01/02/24 11:57 Room Air 01/02/24 08:11 Room Air 01/02/24 07:14 01/02/24 04:02 Room Air 01/02/24 01:57 EST Laboratory Results Abnormal lab results 01/02/24 Range/Units 06:04 WBC 2.62 L (4.8-10.8) K/ul Hct 36.6 L (37.0-47.0) % Medications Administered Current Inpatient Medications Acetaminophen (Acetaminophen 325 Mg Tab) 650 mg PO Q4H PRN PRN Reason: Pain or Fever Stop: 01/30/24 11:17 Ascorbic Acid (Ascorbic Acid 500 Mg Tab) [facility] [place]: 01/31/24 08:59 Last Admin: 01/02/24 08:10 Dose: 500 mg Cyanocobalamin (Cyanocobalamin (B-12) 500 Mcg Tablet) 1,000 mcg PO QAM [facility] Stop: 01/31/24 08:59 Last Admin: 01/02/24 08:09 Dose: 1,000 mcg Docusate Sodium (Docusate Sodium 100 Mg Cap) 100 mg PO BID [facility] Stop: 01/30/24 20:59 Last Admin: 01/02/24 08:14 Dose: 100 mg Fluticasone Propionate (Fluticasone Propionate Na Spr 16 Gm Btl) 1 sprays NA DAILY PRN PRN Reason: Allergy Symptoms Stop: 01/30/24 11:49 Folic Acid (Folic Acid 400 Mcg Tab) 400 [facility] [place]: 01/31/24 08:59 Last Admin: 01/02/24 08:11 Dose: 400 mcg Hydromorphone HCl (Hydromorphone Inj 0.5 Mg/0.5 Ml Syr) 0.5 mg IV Q3H PRN PRN Reason: severe pain Stop: 01/15/24 13:29 Last Admin: 01/02/24 12:51 Dose: 0.5 mg Pantoprazole Sodium (Protonix) 40 mg in 10 mls @ 5 mls/min IV BID [facility] Stop: 01/30/24 20:59 Last Admin: 01/02/24 08:14 Dose: 5 mls/min Lactated Ringer's (Lr) 1,000 mls @ 100 mls/hr IV .Q10H [facility] Stop: 01/03/24 13:14 Last Admin: 01/02/24 08:29 Dose: 100 mls/hr Lactobacillus Acidophilus (Advanced Probiotic 625 Mg Capsule) 625 mg PO DAILY [facility] Stop: 01/31/24 08:59 Last Admin: 01/02/24 08:14 Dose: 625 mg Levothyroxine Sodium (Levothyroxine Sodium 25 Mcg Tablet) 25 mcg PO MoTuWeThFrSa@0630 [facility] Stop: 01/30/24 12:29 Last Admin: 01/01/24 06:12 Dose: 25 mcg Levothyroxine Sodium (Levothyroxine Sodium 25 Mcg Tablet) 50 mcg PO Vera@0630 [facility] Stop: 02/01/24 06:29 Last Admin: 01/02/24 06:09 Dose: 50 mcg Lidocaine (Lidocaine 5% 1 Patch) 1 patch TD 1900 [facility] Stop: 01/31/24 18:59 Last Admin: 01/01/24 18:28 Dose: 1 patch Lorazepam (Lorazepam 2 Mg/1 Ml Vial) 0.25 mg IV Q8H PRN PRN Reason: Anxiety/Agitation Stop: 01/31/24 13:45 Last Admin: 01/02/24 10:19 Dose: 0.25 mg Miscellaneous (Remove Lidoderm Patch) 1 each N/A DAILY@0700 [facility] Stop: 01/31/24 06:59 Last Admin: 01/02/24 06:09 Dose: 1 each Multi-Ingredient Mouthwash/Gargle (First - Mouthwash Blm 119 Ml) 5 ml PO ACHS [facility] Stop: 01/30/24 16:29 Last Admin: 01/02/24 12:42 Dose: Not Given Multivitamins (Multivitamin Tab) 1 tab PO QAM [facility] Stop: 01/31/24 08:59 Last Admin: 01/02/24 08:10 Dose: 1 tab Nitroglycerin (Nitroglycerin Sl 0.4 Mg/Tab Tab) 0.4 mg SL Q5M PRN PRN Reason: Chest Pain Stop: 01/31/24 09:14 Last Admin: 01/01/24 09:57 Dose: 0.4 mg Ondansetron HCl (Ondansetron Inj 2 Mg/Ml 2 Ml Vial) 4 mg IV Q6H PRN PRN Reason: Nausea Stop: 01/30/24 11:17 Last Admin: 12/31/23 21:09 Dose: 4 mg Oxycodone HCl (Oxycodone Hcl Ir 5 Mg Tab (Immediate Release)) 5 - 10 mg PO QID PRN PRN Reason: Pain Stop: 01/15/24 21:12 Polyethylene Glycol (Polyethylene (Miralax) 17 Gm Pack) 17 gm PO DAILY PRN PRN Reason: Constipation Stop: 01/30/24 11:17 Last Admin: 01/02/24 12:51 Dose: 17 gm Vitamin D (Cholecalciferol 125 Mcg (5,000 Units) Tab) 125 mcg PO DAILY [facility] Stop: 01/30/24 11:59 Last Admin: 01/02/24 08:10 Dose: 125 mcg (1) Chest pain Chest pain type: unspecified Qualified Code(s): R07.9 - Chest pain, unspecified
--- NOTE | 2024-01-03 07:59 | Anesthesiology Consultation ---
Date of Service January 03, 2024 Assessment & Plan Chart Review Chart Review: Acceptable Risk for Surgery, Patient NOT seen in Pre Admission Testing and supervisor inspecting initiated Consults Requested none Proposed Anesthesia Anesthesia Type: MAC History Surgery Operation Date: 01/03/24 13:30 Proposed Procedures p Esophagogastroduodenoscopy Jett Frausto MD Height/Weight Height: 5 ft 4 in Weight: 65.6 kg Allergies Allergy/AdvReac Type Severity Reaction Status Date / Time azithromycin [From Zithromax] Allergy Severe Hives Verified 12/31/23 08:36 dihydroergotamine Allergy Severe "THROAT Verified 12/31/23 08:36 SHUTS DOWN" ketorolac Allergy Intermediate HIVES Verified 12/31/23 08:36 Milk Containing Products Allergy Intermediate Gastrointestinal Unverified 12/31/23 08:36 (Dairy) Upset Penicillins Allergy Intermediate Hives Verified 12/31/23 08:36 Medications Home Medications Medication Instructions Recorded Confirmed Last Taken ascorbic acid (vitamin C) 500 mg 500 mg PO QAM 11/11/17 12/31/23 1 Week Ago tablet (Vitamin C) ~12/24/23 conjugated estrogens 0.625 mg/gram 1 applic vaginal 2XWK 11/11/17 12/31/23 1 Week Ago vaginal cream (Premarin) ~12/24/23 fluticasone propionate 50 1 spray intranasal DAILY PRN 11/11/17 12/31/23 09/02/20 mcg/actuation nasal Allergy Symptoms spray,suspension (Flonase Allergy Relief) folic acid 400 mcg tablet 400 mcg PO QAM 11/11/17 12/31/23 1 Week Ago ~12/24/23 lysine 500 mg tablet (L-Lysine) 500 mg PO DAILY PRN Cold Sore(s) 11/11/17 12/31/23 02/01/23 08:00 selenium 200 mcg tablet (SelenoMax) 200 mcg PO QAM PRN illness 11/11/17 12/31/23 10/25/22 sennosides 8.6 mg-docusate sodium 1 tab PO BID PRN Constipation 11/11/17 12/31/23 10/25/22 50 mg tablet (Senna-S) sumatriptan succinate 100 mg 100 mg PO UD PRN Migraine Headache 09/13/18 11/01/24 08/27/23 tablet (Imitrex) cholecalciferol (vitamin D3) 125 5,000 units PO UD 07/03/18 12/31/23 1 Week Ago mcg (5,000 unit) tablet (Vitamin ~12/24/23 D3) meperidine (PF) 100 mg/mL 1 ml IM DIRECTED PRN Migraine 07/03/18 12/31/23 Unknown injection solution Headache multivitamin (Multiple Vitamins 1 tab PO QAM 07/03/18 12/31/23 1 Week Ago tablet) ~12/24/23 ondansetron 4 mg disintegrating 4 mg PO Q6H PRN nausea and 09/07/20 12/31/23 Unknown tablet vomiting #20 tabs ibuprofen 800 mg tablet 800 mg PO DIRECTED PRN Pain 09/26/20 12/31/23 09/26/20 galcanezumab-gnlm 120 mg/mL 120 mg subcut MONTHLY 10/25/22 12/31/23 12/19/23 subcutaneous syringe (Emgality) docusate sodium 100 mg capsule 100 mg PO BID #60 caps 02/01/23 12/31/23 1 Week Ago ~12/24/23 oxybutynin chloride 5 mg tablet 5 mg PO Q8H PRN bladder spasms #90 02/01/23 12/31/23 02/07/23 tabs pantoprazole 40 mg tablet,delayed 40 mg PO DAILY #30 tabs 02/01/23 12/31/23 1 Week Ago release ~12/24/23 albuterol sulfate 90 mcg/actuation 1 puff inhalation DIRECTED PRN 10/15/23 12/31/23 Unknown aerosol inhaler Other alendronate 70 mg tablet 70 mg PO WK 10/15/23 12/31/23 12/25/23 aspirin 81 mg tablet,delayed 81 mg PO UD 10/15/23 12/31/23 1 Week Ago release (Adult Aspirin Regimen) ~12/24/23 levothyroxine 25 mcg tablet 25 mcg PO UD 10/15/23 12/31/23 Unknown omega 0-mrh-hvv-fish oil 1,000 mg 1 cap PO DAILY ##0 10/15/23 12/31/23 1 Week Ago (120 mg-180 mg) capsule (Fish Oil) ~12/24/23 phenazopyridine 200 mg tablet 200 mg PO Q8H PRN Other 10/15/23 12/31/23 Unknown (Pyridium) tamsulosin 0.4 mg capsule 0.4 mg PO DAILY PRN Other 10/15/23 12/31/23 Unknown valacyclovir 1 gram tablet 1 mg PO DIRECTED PRN Cold Sores 10/15/23 12/31/23 Unknown L.acidop,casei,lactis,rham-B.lact,tank 2 cap PO DAILY #60 caps 10/19/23 12/31/23 1 Week Ago 625 mg (10 billion cell) capsule ~12/24/23 (Advanced Probiotic) cyanocobalamin (vitamin B-12) 500 1,000 mcg (2 x 500 mcg) PO QAM #60 10/19/23 12/31/23 1 Week Ago mcg tablet tabs ~12/24/23 Active Medications Generic Name Dose Route Start Last Admin Trade Name Freq PRN Reason Stop Dose Admin Ascorbic Acid 500 mg 01/01/24 09:00 01/03/24 07:54 Ascorbic Acid 500 Mg Tab PO 01/31/24 08:59 Not Given QAM [facility] Cyanocobalamin 1,000 mcg 01/01/24 09:00 01/03/24 07:54 Cyanocobalamin (B-12) 500 Mcg Tablet PO 01/31/24 08:59 Not Given QAM [facility] Docusate Sodium 100 mg 12/31/23 21:00 01/03/24 07:54 Docusate Sodium 100 Mg Cap PO 01/30/24 20:59 Not Given BID [facility] Folic Acid 400 mcg 01/01/24 09:00 01/02/24 08:11 Folic Acid 400 Mcg Tab PO 01/31/24 08:59 400 mcg QAM [facility] Administration Hydromorphone HCl 0.5 mg 01/01/24 13:47 01/03/24 06:08 Hydromorphone Inj 0.5 Mg/0.5 Ml Syr IV 01/15/24 13:29 0.5 mg Q3H PRN Administration severe pain Pantoprazole Sodium 40 mg in 10 mls @ 5 mls/min 12/31/23 21:00 01/03/24 07:55 Protonix IV 01/30/24 20:59 5 mls/min BID [facility] Administration Lactated Ringer's 1,000 mls @ 100 mls/hr 12/31/23 13:15 01/03/24 04:30 Lr IV 01/03/24 13:14 100 mls/hr .Q10H [facility] Administration Lactobacillus Acidophilus 625 mg 01/01/24 09:00 01/03/24 07:54 Advanced Probiotic 625 Mg Capsule PO 01/31/24 08:59 Not Given DAILY [facility] Levothyroxine Sodium 25 mcg 12/31/23 12:30 01/03/24 06:05 Levothyroxine Sodium 25 Mcg Tablet PO 01/30/24 12:29 25 mcg MoTuWeThFrSa@0630 [facility] Administration Levothyroxine Sodium 50 mcg 01/02/24 06:30 01/02/24 06:09 Levothyroxine Sodium 25 Mcg Tablet PO 02/01/24 06:29 50 mcg Vera@0630 [facility] Administration Lidocaine 1 patch 01/01/24 19:00 01/02/24 17:24 Lidocaine 5% 1 Patch TD 01/31/24 18:59 1 patch 1900 [facility] Administration Lorazepam 0.25 mg 01/02/24 09:21 01/02/24 10:19 Lorazepam 2 Mg/1 Ml Vial IV 01/31/24 13:45 0.25 mg Q8H PRN Administration Anxiety/Agitation Miscellaneous 1 each 01/01/24 07:00 01/03/24 06:05 Remove Lidoderm Patch N/A 01/31/24 06:59 1 each DAILY@0700 [facility] Administration Multi-Ingredient Mouthwash/Gargle 5 ml 12/31/23 16:30 01/03/24 07:53 First - Mouthwash Blm 119 Ml PO 01/30/24 16:29 Not Given ACHS [facility] Multivitamins 1 tab 01/01/24 09:00 01/03/24 07:54 Multivitamin Tab PO 01/31/24 08:59 Not Given QAM [facility] Nitroglycerin 0.4 mg 01/01/24 09:15 01/01/24 09:57 Nitroglycerin Sl 0.4 Mg/Tab Tab SL 01/31/24 09:14 0.4 mg Q5M PRN Administration Chest Pain Ondansetron HCl 4 mg 12/31/23 11:18 12/31/23 21:09 Ondansetron Inj 2 Mg/Ml 2 Ml Vial IV 01/30/24 11:17 4 mg Q6H PRN Administration Nausea Polyethylene Glycol 17 gm 12/31/23 11:18 01/02/24 12:51 Polyethylene (Miralax) 17 Gm Pack PO 01/30/24 11:17 17 gm DAILY PRN Administration Constipation Vitamin D 125 mcg 12/31/23 12:00 01/03/24 07:54 Cholecalciferol 125 Mcg (5,000 Units) Tab PO 01/30/24 11:59 Not Given DAILY [facility] Past Medical History Medical History 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, recent incidental finding, to follow w/ Hyun Curry [facility] GERD (gastroesophageal reflux disease) Hx of transesophageal echocardiography (JON) for monitoring Calculus of distal right ureter 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 treated w/ Javier Past Family History Family History Mother Cervical cancer Past Surgical History Surgical History Hx of colonoscopy History of dilatation and curettage Hx of laparoscopy Hx of cystoscopy w/ stent Hx of lithotripsy Hx of tonsillectomy H/O bilateral oophorectomy History of hysterectomy Social History Smoking Status: Never smoker Do You Dip or Chew Tobacco: No Hx Alcohol Use: No Alcohol type: wine alcohol intake frequency: holidays/special occasions only Hx Substance Use: No substance use type: does not use Physical Exam Vital Signs Last Vital Signs Temp 37.2 C 01/03/24 07:50 Pulse 79 01/03/24 07:50 Resp 18 01/03/24 07:50 BP 126/80 01/03/24 07:50 Pulse Ox 94 01/03/24 07:50 O2 Del Method Room Air 01/03/24 07:50 Testing Laboratory Results 01/02/24 06:04 01/02/24 06:04 PT 11.5 Seconds (9.0-12.0) 12/31/23 04:30 INR 1.1 (0.9-1.1) 12/31/23 04:30 APTT 29 Seconds (21-31) 12/31/23 04:30 Electrocardiogram Date: 01/01/24 Test Reason : Blood Pressure : */* mmHG Vent. Rate : 76 BPM Atrial Rate : 76 BPM P-R Int : 212 ms QRS Dur : 148 ms QT Int : 462 ms P-R-T Axes : 49 -51 81 degrees QTcB Int : 519 ms Atrial-sensed ventricular-paced rhythm with prolonged AV conduction Abnormal ECG When compared with ECG of 31-Dec-2023 12:34, Electronic ventricular pacemaker has replaced Sinus rhythm Confirmed by Isidra Friend ([id number]) on 01/01/2024 7:39:21 PM Chest X-Ray Date: 12/31/23 XR chest 1V not portable HISTORY: 58 years-old Female Chest pain, nonspecific COMPARISON: CTA chest of same day, chest radiograph 10/15/2023 TECHNIQUE: AP view of the chest DOS 01/28/2023. FINDINGS: Cardiac silhouette is upper limits of normal. Dual lead left subclavian pacer. No pneumothorax, pleural effusion, airspace consolidation or pulmonary edema. 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 IMPRESSION: 1. No acute process of the chest. 2. Lingular and left lower lobe atresia better seen on same-day chest CT. Echocardiogram Date: 01/01/24 EF: 55-60 LV Function: normal RWMA: + none Patent PFO
--- NOTE | 2024-01-03 08:44 | Communication Note ---
Date of Service: January 03, 2024 Patient seen - no significant change and OK for transfer to [facility] for EGD.
--- NOTE | 2024-01-03 09:14 | GI REPORT ---
[facility] Patient: ERIKA LOPEZ : 1965 Sex at : Female Age: 58 Years Procedure: Upper GI endoscopy Date: 01/03/2024 Attending Physician: Robert Frausto MD Referring MD: Salvador Pike Indications: - Dysphagia Medications: - Monitored Anesthesia Care Complications: - No immediate complications. Estimated Blood Loss: - Estimated blood loss: None. Procedure: - ASA Grade Assessment: III - A patient with severe systemic disease. - The egd scope was introduced through the mouth and advanced to the second part of the duodenum. - The upper GI endoscopy was accomplished without difficulty. - The patient tolerated the procedure well. Findings: - Two superficial esophageal ulcers with no stigmata of recent bleeding were found 30 cm from the incisors. These were on opposite valero and located at same level consistent with a pill esophagitis injury. - The entire examined stomach was normal including a retroflexed view. - The examined duodenum was normal. Impression: - Esophageal ulcers with no stigmata of recent bleeding. - Normal stomach. - Normal examined duodenum. - No specimens collected. Recommendation: - [facility] [place] [facility] Procedure Code(s): - 98943, Esophagogastroduodenoscopy, flexible, transoral; diagnostic, including collection of specimen(s) by brushing or washing, when performed (separate procedure) Diagnosis Code(s): - R13.10, Dysphagia, unspecified - K22.10, Ulcer of esophagus without bleeding CPT(R) - 202 copyright [employer]. All Rights Reserved. The CPT codes, CCI edits and ICD codes generated are intended as suggestions and were generated based on input data. These codes are preliminary and upon plumbing drafter review may be revised to meet current compliance and payer requirements. The provider is responsible for the final determination of appropriate codes, and modifiers. Robert Frausto MD This document has been electronically signed. Note Initiated:01/03/2024 Note Completed:01/03/2024 9:13 AM \\[id number]
--- NOTE | 2024-01-03 09:15 | Communication Note ---
Date of Service: January 03, 2024 POST PROCEDURE NOTE: See Provation note for complete report. Summary: Two superficial esophageal ulcers about 30 cm from lip line. Consistent with pill esophagitis. Rec: Carafate sluffy 1 gm qid and can supplement as needed with liquid antacids ie Amphogel or Maalox Repeat EGD in 6-8 weeks Soft diet OK from GI standpoint to discharge once taking po and given OP f/u and otherwise cleared by medicine.
[2024-01-03] MEDS ORDERED: LORazepam 0.5 MG TAB PO PRN (10:09)
[2024-01-03] MEDS: ACETAMINOPHEN 325 MG TAB PO PRN (10:26)
[2024-01-03] MEDS: oxyCODONE HCL IR 5 MG TAB (IMMEDIATE RELEASE) PO PRN (11:10)
[2024-01-03] MEDS: SUCRALFATE 1 GM/10 ML UDC PO SCH (11:10)
[2024-01-03 11:43] VITALS: BP 128/81; PULSE 69; RESP 18; TEMP 98.6; O2SAT 96
--- NOTE | 2024-01-03 12:04 | Anesthesiology Progress Note ---
Date of Service January 03, 2024 Anesthesia Post Procedure Vital Signs Vital Signs: Temp Pulse Pulse Resp BP BP Pulse Ox 01/03/24 11:42 37 C 69 18 128/81 96 01/03/24 09:33 83 16 135/88 95 01/03/24 09:18 84 16 137/91 94 01/03/24 09:03 82 16 119/84 93 01/03/24 08:24 36.7 C 74 16 133/87 97 01/03/24 07:50 37.2 C 79 18 126/80 94 01/03/24 07:04 72 01/03/24 02:50 37 C 78 16 131/84 94 01/02/24 22:53 37.1 C 74 16 117/69 96 01/02/24 22:04 67 01/02/24 19:56 37.2 C 83 16 142/75 H 95 01/02/24 16:01 37.2 C 86 16 129/76 94 01/02/24 14:05 73 O2 Del Method 01/03/24 11:42 Room Air 01/03/24 09:33 Room Air 01/03/24 09:18 Room Air 01/03/24 09:03 Room Air 01/03/24 08:24 Room Air 01/03/24 07:50 Room Air 01/03/24 07:04 01/03/24 02:50 Room Air 01/02/24 22:53 Room Air 01/02/24 22:04 01/02/24 19:56 Room Air 01/02/24 16:01 Room Air 01/02/24 14:05 Pain Intensity Abdomen: Pain Intensity: 3 Transfer of Care Handoff Completed per policy Notes Mental Status: alert / awake / arousable and participated in evaluation Patient Amnestic to Procedure: Yes Nausea / Vomiting: adequately controlled Pain: adequately controlled Airway Patency, RR, SpO2: stable & adequate BP & HR: stable & adequate Hydration State: stable & adequate Anesthetic Complications: no major complications apparent
[2024-01-03] MEDS: LIDOCAINE VISCOUS 2% 15 ML UDC PO SCH (12:16)
--- NOTE | 2024-01-03 12:36 | Fluoroscopy Report ---
FL barium swallow CLINICAL HISTORY: Epigastric pain. COMPARISON STUDY: None. FLUOROSCOPY TIME: 54 seconds FLUOROSCOPY IMAGES: 9 Ka,r: 18.2 mGy FINDINGS: Mucosal detail is mildly diminished on this exam. No esophageal mass or stricture was ident ified. No contrast extravasation is identified. No hiatal hernia was identified. No reflux was elicit ed. There was mild esophageal dysmotility. IMPRESSION: 1. Mild esophageal dysmotility. 2. No esophageal mass or stricture. Mildly diminished mucosal detail. ACT 112: Negative or not required by law. Electronically signed by: Hoang Betancourt M.D. 01/03/2024 12:35 PM
--- NOTE | 2024-01-03 13:07 | Discharge Summary ---
Discharge Summary Date of Service January 03, 2024 Principal Dx & Hospital Course #1 = Principal Diagnosis (1) Esophageal ulceration: (2) Esophageal spasm: (3) Atypical chest pain: Plan Patient presented to the emergency room with complaints of severe substernal chest pain. Patient had a complicated history of Lyme carditis and subsequent pacemaker placement. Initial troponins were unremarkable, but due to her symptoms she was admitted for further evaluation. Patient was admitted to monitored setting. There was no significant arrhythmias Noted on telemetry monitoring. Pacemaker interrogation was unremarkable. Echocardiogram was consistent with pacemaker insertion. Cardiology consultation was obtained and their recommendations that her pain was not cardiac related and recommended continuing to pursue other etiologies for her substernal chest pain. GI consultation was obtained. She has a significant history for possible gastric or esophageal ulcerations with taking Fosamax, ibuprofen and aspirin. Also gave a history that she often lays down goes back to bed after taking the Fosamax. Initially plan to proceed with a barium swallow but then ultimately move forward with the EGD. EGD confirmed esophageal ulcerations. This is the etiology of the patient's pain. Barium swallow did show some mild dysmotility but could not see the ulcers or any other significant abnormalities on imaging. Patient was t reated with twice daily PPI, viscous lidocaine and some pain medications for symptoms. She was also was treated with Carafate. Her diet was advanced. We discussed that she would need to slowly advance her diet and as the ulcer started to heal she will be able to advance her diet more so. Discussed eating protein shakes and puddings. Also discussed decreasing acid in her diet, reviewed foods to avoid. Also recommended avoiding alcohol. Also at this point in her health status the risks of staying on the Fosamax and aspirin and ibuprofen outweigh the benefits. Recommend stopping those medications continuing with the medications to help heal the ulcer and discussed with her PCP other alternatives for treating her osteoporosis. She will follow-up with outpatient GI in approximate 4 to 6 weeks. She will follow-up with her PCP and routinely with cardiology as previously scheduled. Her was at the bedside at time of discharge and understanding agreement plan of care. 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 History obtained from patient, at bedside and associated chart review. Patient was recently admitted under our service back in September of this year (10/15/2023 - 10/19/2023) due to Lyme carditis and second-degree AV block. She completed a 3-week course of IV ceftriaxone however her second-degree AV block did not resolve therefore she required pacemaker placement on 11/16/2023 at [facility] performed by Dr. Jaimie Gilman. She was also found to have chronic leukopenia during that admission as well. She was evaluated by hematology/oncology and underwent bone marrow biopsy on 10/19/2023 that revealed normocellular marrow (no evidence of myelodysplasia). Patient follows closely with Dr. 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 She had her pacemaker adjusted yesterday - reports her settings had to be "doubled" as the device was not pacing correctly. Today, patient reports that she has been dealing with chest discomfort and intermittent bouts of sharp/stabbing chest pain for about a week now. She was recently seen by LING Diamond [ Cardiology] on 12/24/2023 for these same symptoms and was diagnosed with probable GERD. However her omeprazole dosage was increased without any relief. She reports that the chest discomfort is constant and radiates across her entire chest wall into her bilateral rib regions. She also gets these bouts of sharp/stabbing pain in her substernal chest region that radiate up from her epigastric region multiple times per day. She reports that these episodes of sharp/stabbing pain lasts anywhere from a few seconds to what feels like a couple of minutes. These episodes of sharp/stabbing pain can come on at any time however they always occur when she drinks or eats, therefore she has not been eating nor hydrating well due to the pain that occurs when she does so. She has not tried taking anyt jewell at home for her pain except omeprazole. Patient reports that it does not feel like food is getting stuck in her throat. She has been intermittently feeling like she needs to vomit however she denies any nausea at this time. She does become short of breath with these attacks of sharp/stabbing pain but otherwise her breathing has been okay. She denies any fevers, chills or body aches. Patient has previously dealt with dysphagia and underwent EGD on 06/30/2023 at [facility]. EGD at that time revealed no endoscopic esophageal abnormality to explain her dysphagia but her esophagus was ultimately dilated. She was however found to have a irregular Z-line during the EGD which was subsequently biopsied and showed squamous esophageal and cardiac mucosa with mild chronic nonspecific carditis negative for intestinal metaplasia. Patient is currently in the process of transitioning to [facility] for all of her care, except she reports that she will continue to follow with Cardiology. She expresses frustration with being diagnosed with Lyme carditis as such a late stage of the disease that she required a pacemaker for development of heart block. However she is agreeable to be admitted under our service today. She is still currently following with Dr. Salvador Pike for primary care services. Patient is requesting to see [facility] and [facility] GI rather than [facility] specialists. Admission Exam Per Admitting Provider See H&P Discharge Exam Constitutional: Alert, continued discomfort in chest HEENT: Mucous membranes moist. Lungs: Clear to auscultation, decreased, no wheezes rales or rhonchi CV: S1-S2, regular Abdomen: Soft, mild epigastric tenderness Extremities: No significant edema Neuro: No focal deficits Psych: Cooperative, normal mood Updated Medication List Medication Instructions Recorded Confirmed Type ascorbic acid (vitamin C) 500 mg 500 mg PO QAM 11/11/17 12/31/23 History tablet (Vitamin C) conjugated estrogens 0.625 mg/gram 1 applic vaginal 2XWK 11/11/17 12/31/23 History vaginal cream (Premarin) fluticasone propionate 50 1 spray intranasal DAILY PRN 11/11/17 12/31/23 History mcg/actuation nasal Allergy Symptoms spray,suspension (Flonase Allergy Relief) folic acid 400 mcg tablet 400 mcg PO QAM 11/11/17 12/31/23 History lysine 500 mg tablet (L-Lysine) 500 mg PO DAILY PRN Cold Sore(s) 11/11/17 12/31/23 History selenium 200 mcg tablet (SelenoMax) 200 mcg PO QAM PRN illness 11/11/17 12/31/23 History sennosides 8.6 mg-docusate sodium 1 tab PO BID PRN Constipation 11/11/17 12/31/23 History 50 mg tablet (Senna-S) sumatriptan succinate 100 mg 100 mg PO UD PRN Migraine Headache 11/11/17 12/31/23 History tablet (Imitrex) cholecalciferol (vitamin D3) 125 5,000 units PO UD 07/03/18 12/31/23 History mcg (5,000 unit) tablet (Vitamin D3) meperidine (PF) 100 mg/mL 1 ml IM DIRECTED PRN Migraine 07/03/18 12/31/23 History injection solution Headache multivitamin (Multiple Vitamins 1 tab PO QAM 07/03/18 12/31/23 History tablet) ondansetron 4 mg disintegrating 4 mg PO Q6H PRN nausea and 09/07/20 12/31/23 Rx tablet vomiting #20 tabs ibuprofen 800 mg tablet 800 mg PO DIRECTED PRN Pain 09/26/20 12/31/23 History galcanezumab-gnlm 120 mg/mL 120 mg subcut MONTHLY 10/25/22 12/31/23 History subcutaneous syringe (Emgality) docusate sodium 100 mg capsule 100 mg PO BID #60 caps 02/01/23 12/31/23 Rx oxybutynin chloride 5 mg tablet 5 mg PO Q8H PRN bladder spasms #90 02/01/23 12/31/23 Rx tabs albuterol sulfate 90 mcg/actuation 1 puff inhalation DIRECTED PRN 10/15/23 12/31/23 History aerosol inhaler Other alendronate 70 mg tablet 70 mg PO WK 10/15/23 12/31/23 History aspirin 81 mg tablet,delayed 81 mg PO UD 10/15/23 12/31/23 History release (Adult Aspirin Regimen) levothyroxine 25 mcg tablet 25 mcg PO UD 10/15/23 12/31/23 History omega 6-ihx-tte-fish oil 1,000 mg 1 cap PO DAILY ##0 10/15/23 12/31/23 History (120 mg-180 mg) capsule (Fish Oil) phenazopyridine 200 mg tablet 200 mg PO Q8H PRN Other 10/15/23 12/31/23 History (Pyridium) tamsulosin 0.4 mg capsule 0.4 mg PO DAILY PRN Other 10/15/23 12/31/23 History valacyclovir 1 gram tablet 1 mg PO DIRECTED PRN Cold Sores 10/15/23 12/31/23 History L.acidop,casei,lactis,rham-B.lact,tank 2 cap PO DAILY #60 caps 10/19/23 12/31/23 Rx 625 mg (10 billion cell) capsule (Advanced Probiotic) cyanocobalamin (vitamin B-12) 500 1,000 mcg (2 x 500 mcg) PO QAM #60 10/19/23 12/31/23 Rx mcg tablet tabs lidocaine HCl 2 % mucosal solution 15 ml PO AC #600 mL 01/03/24 Rx (Lidocaine Viscous) oxycodone 5 mg tablet 5 mg PO Q4H PRN pain #10 tabs 01/03/24 Rx pantoprazole 40 mg tablet,delayed 40 mg PO BID #60 tabs 01/03/24 Rx release sucralfate 100 mg/mL oral 1 g (10 mL) PO QID #1,000 mL 01/03/24 Rx suspension Hospital Stay Data Consultations 12/31/23 09:21 ED Decision to Admit Stat 12/31/23 09:50 Consult Gastroenterology Routine 12/31/23 10:29 Consult Cardiology Routine Procedures Performed Operation Date: 01/03/24 13:30 Actual Procedures p Esophagogastroduodenoscopy - Robert Abhilash Frausto MD Diagnostic Imagining Performed 12/31/23 05:34 CT angio chest PE protocol Stat 01/03/24 08:30 FL barium swallow Routine Reviewed imaging, laboratory and diagnostic studies. Pertinent findings as below. EGD revealed esophageal ulcers most likely due to combination of medications that make her susceptible for this Barium swallow showed some mild dysmotility Stool for H. pylori pending WBCs 2.6 Hemoglobin 12.7 Platelets 157 Electrolytes within normal range Creatinine 0.71 Iron studies within normal range Troponins all within normal range B12 321 Folate 16.5 Pending Results Patient Have Any Pending Studies at Discharge: No Discharge Instructions Given to Patient (Per Discharging Provider) Low acid diet: Avoid/limit intake of tomato, tomato sauces, citrus, caffeine, alcohol, Avoid NSAIDs which include but not limited to: Ibuprofen, Advil, Motrin, aspirin, Naprosyn, Aleve, naproxen, [place] Discussed with your PCP alternative treatments for your osteoporosis Total Time Total Time Spent Total Time Spent (In Minutes): 42
[2024-01-03] MEDS ORDERED: PANTOprazole 40 MG TAB PO SCH (21:00)
--- OUTSIDE RECORDS SUMMARY | 2024-01-05 13:07 | External Medical Summary | Summary of Care ---
Author Name Unknown Organization [facility] Address [address] [place] [address] Phone [phone] Care Team Providers Care Director Of Sales Name Role Phone Glendy RABAGO MD, Salvador Cuadra Primary Care Provider [phone] Reason for Visit * Reason Onset Date Comments Hospital Follow-Up 01/04/2024 [facility] d/c 01/02 esophageal ulcers Encounter Details Date Type Department Care Team (Late st Contact Info) Description 01/04/2024 Telephone Family Practice [facility] [address] [place] [address] Makenzie Batista, JUAN CARLOS Hospital Follow-Up ([facility] d/c 01/02 esophage... Allergies Active Allergy Reactions Criticality Noted Date Comments Azithromycin Hives High 07/03/2018 Dihydroergotamine High 07/03/2018 Other reaction(s): "THROAT SHUTS DOWN" Ergotamine 06/10/2001 DHE Ketorolac Tromethamine 01/08/2002 hives Penicillins 02/08/2009 rash Poison [place] Extract Rash 06/12/2015 Azithromycin Hives 12/20/2008 documented as of this encounter (statuses as of 01/04/2024) Medications Medication Sig Dispensed Refills Start Date End Date Status LYSINE HCL 500 MG PO TABS Take by mouth. 02/01/2013 Active SENNA S 8.6-50 MG PO TABS one tablet twice daily 02/01/2013 Active Multiple Vitamins-Minerals (MULTIVITAMIN GUMMIES ADULTS) CHEW Take by mouth. Active fluticasone (FLONASE) 50 MCG/ACT nasal sprayIndications:Al lergic rhinitis Administer 1 [place] into nostril daily. 16 g 5 06/12/2015 [...] 120 MG/ML Subcutaneous Solution Prefilled Syringe (Galcanezumab-[facility]) INJECT 1 ML UNDER THE SKIN [...] needed for Headache. 1 mL 12/10/2023 Active documented as of this encounter (statuses as of 01/04/2024) Active Problems Problem Noted Date Diagnosed Date [...] term PANIC DISORDER 01/08/2006 Overview: Paxil rx Calculus of kidney 03/14/2003 COMMON MIGRAINE WITH INTRACTABLE MIGRAINE, SO ST ATED 01/17/2002 Neutropenia 01/09/2002 Overview: ICD-10 update of inactive term Constipation 01/09/2002 Overview: ICD-10 update of inactive term Vertigo 10/11/2001 Allergic rhinitis 08/31/2001 documented as of this encounter (statuses as of 01/04/2024) Resolved Problems Problem Noted Date Diagnosed Date Resolved Date Pyelonephritis 06/07/2011 02/11/2017 Occlusion of ureteral stent 06/07/2011 02/11/2017 Acute renal failure 06/07/2011 02/12/20 17 Sepsis 06/07/2011 02/11/2017 ADVANCE DIRECTIVE INFORMATION 02/24/2005 01/03/2024 Overview: No, Advance Directive brochure given to patient. Generalized hyperhidrosis 11/20/2003 BACKACHE, S/P LITHOTRIPSY 04/25/2003 [...] as of this encounter (statuses as of 01/04/2024) Immunizations Name Administration Dates Next Due COVID-19 [...] Telephone Encounter - Makenzie Batista RN - 01/04/2024 8:42 AM EST Transitions of Care Note Reason for Referral:Recent Admission Phone visit for follow up: SAVANNA Admitted to: [facility], Date: 12/30 Discharged to: home, Date: 01/02 Diagnosis driving hospitalization: chest pain/esophageal ulcers Source/Contact: Patient SUBJECTIVE Consent: Verbal consent for review of hospital discharge: Yes REVIEW OF SYSTEMS Patient/Other Reports: Current patient/caregiver problems or concerns: dry mouth/throat slowly improving. Following soft diet. Voiced Dissatisfied with care at [facility] at this time. Appreciated follow up call stating "this call has been the best thing [facility] has done for me recently". Assisted with rescheduling appointment with Dr. Pike on date that works with patients work schedule. CV: Denies problems Pulmonary: Denies problems Chills/Sweats/Fever:denies Appetite:still some burning/discomfort. Current diet: soft/advancing as tolerated Bowel: denies problems Bladder: denies problems Wound (If applicable): N/A Pain:Location- esophageal/chest Sleep:Denies problems FUNCTIONAL STATUS: ADL'S: Needs Assistance With:N/A as pt is independent IADL'S: Needs Assistance With:N/A as pt is independent Cognitive and Mental Health: denies problems, alert and oriented x 3, and able to communicate, understand instructions, process information. MEDICATION RECONCILIATION Medications: Discharge med list reviewed with patient or caregiver New medication(s) filled since hospitalization- Carafate, viscous lidocaine, oxycodone OBJECTIVE ASSESSMENT Medication Risk Assessment: No risks identified Did patient fail outpatient treatment? No Discharge instructions available for review? Yes PLAN Symptom Monitoring Interventions:Member/caregiver education - signs and symptoms to contact PrimaryCare (DO NOT DELETE-Three carmichael symptoms patient is to report to PCP) 1. Dysphagia/esophageal pain 2. Chest pain 3. Inability to advance diet Conduit CleanerWasher Engineer of Care interventions/Action Plan: Medication reconciliation and 5 - 7 day follow-up with PCP in place - Date: 01/20, date per patients request Educated on role of SAVANNA completed with patient/caregiver. Educated patient/caregiver on patient right to have input on SAVANNA plan of care. Verification of Home Health/DME if indicated: NO n/a Identified Care Gaps: Yes Care Gaps closed this call: Appointment made or confirmed, Medication optimization, and Transition of Care follow-up communication Re-evaluation of Plan of Care and progress towards goals achievement: Patient education this visit: Verbal, as above Plan to discharge needs met, verbalizes understanding and agrees with plan. Makenzie Batista RN documented in this encounter Plan of Treatment Upcoming Encounters Date Type Department Care Team (Late st Contact Info) Description 01/21/2024 11:00 AM EST Office Visit Family Practice [place] [address] [facility] [place] [address] Salvador Pike III, MD [address] [facility] [place] [id number] Scheduled Procedures Name Priority Associated Diagnoses Date/Ti [...] D LEVEL ONCE IN A LIFETIME-USE SMARTSET# 82317 Completed 01/12/2023, 07/12/2020, 09/05/2018, Additional history exists [...] and were consensually agreed upon. Care Teams Director Of Sales Relationship Specialty Start Date End Date Salvador Pike III, MD [address] [place] [address] PCP - General Family Medicine 12/25/20 documented as of this encounter
--- OUTSIDE RECORDS SUMMARY | 2024-01-05 13:07 | External Medical Summary | Summary of Care ---
Author Name Unknown Organization [facility] Address [address] [place] [address] Phone [phone] Care Team Providers Care Farmworker Livestock Name Role Phone Glendy RABAGO MD, Salvador Cuadra Primary Care Provider [phone] Encounter Details Date Type Department Care Team (Late st Contact Info) Description 01/04/2024 Orders Only Family Practice [facility] [place] [address] [facility] [place] [address] Salvador [facility] III, MD [address] [facility] [address] Allergies Active Allergy Reactions Criticality Noted Date [...] MCG/ACT nasal sprayIndications:Al lergic rhinitis Administer 1 [place] into nostril daily. 16 g 5 06/12/2015 [...] Emgality 120 MG/ML Subcutaneous Solution Prefilled Syringe (Galcanezumab-[facility]) INJECT 1 ML UNDER THE SKIN ONCE [...] No 05/19/2023 Does the household have a [facility] source of income? (Household - for [...] [place] [address] [place] [address] Salvador Pike III, MD [address] [place] [address] Scheduled Procedures Name Priority Associated Diagnoses Date/Ti [...] D LEVEL ONCE IN A LIFETIME-USE SMARTSET# [id number] Completed 01/12/2023, 07/12/2020, 09/05/2018, Additional history exists [...] Procedure Name Priority Date/Time Associated Diagnosis Comments UPPER ENDOSCOPY, OUTSIDE PROCEDURE Routine 01/03/2024 documented in this encounter Results * UPPER ENDOSCOPY, OUTSIDE PROCEDURE (01/03/2024) 01/03/2024 History Per Patient GASTRO UPPER OUTSIDE LAB (SEE SCANNED REPORT) documented in this encounter Advance Directives * Full Code (Latest Code Status on File) Date Activated Date Inactivated Comments 06/07/2011 11:19 PM 06/10/2011 3:09 PM This order r eflects the patients wishes and were consensually agreed upon. Care Teams Farmworker Livestock Relationship Specialty Start Date End Date Salvador Pike III, MD [address] [place] [address] PCP - General Family Medicine 12/25/20 documented as of this encounter
== END 2024-01-03 13:54 | disposition home or self-care (01) | DRG 381 ==
LOC: EDINP 04:17 → ED 04:17 → SUATTDRO 09:50 → 2W 10:50 → SUATTDRO 01-01 10:38